=== PATIENT | male | born 1950 | race Caucasian/White ===

== ENCOUNTER 2016-05-20 20:30 | Inpatient (IN) | payer MEDICARE, OTHER ==
[~2016-05-20] VITALS: Ht 170.2 cm; Wt 74.6 kg
[~2016-05-20 20:30] MED LIST: AMIO200T2 PO; APIX5TAB PO; ASPI81TA3 PO; ATOR80TA75 PO; CARV12.579 PO; CEPH500C PO; CLOP75TA28 PO; DOCU-144 PO; EZET10TA3 PO; FAMO-95 PO; FURO40TA4 PO; HYDR-3498 PO; LISI10TA2 PO; MEX150 PO; NIT4 SL; ZOLP10TA5 PO
[2016-05-20] MEDS ORDERED: ASPIRIN 300 MG SUPP PR STA (20:32)
[2016-05-20] MEDS ORDERED: NITROGLYCERIN 50 MG/D5W (PMX) 250 ML IV STA (20:32)
[2016-05-20] MEDS ORDERED: FUROSEMIDE 40 MG INJ IV STA (20:32)
[2016-05-20] MEDS: NITROGLYCERIN 2% 1 GM OINT PKT TD STA ×2 (20:32→20:43)
[2016-05-20 21:00] LABS: INR 1.02; PARTIAL THROMBOPLASTIN TIME 33.9 Sec (25.0-35.0); PROTIME 13.4 Sec (12.2-14.2)
[2016-05-20 21:04] LABS: HEMATOCRIT 49.8 % (42.0-52.0); HEMOGLOBIN 16.4 g/dl (14.0-18.0); MEAN CORPUSCULAR HEMOGLOBIN 28.5 pg (29.0-33.0); MEAN CORPUSCULAR HGB CONC 32.9 g/dl (32.0-37.0); MEAN CORPUSCULAR VOLUME 86.6 fl (82.0-101.0); MEAN PLATELET VOLUME 12.1 fl (7.4-10.4); PLATELET COUNT 296 10^3/UL (140-440); RED BLOOD COUNT 5.75 10^6/ul (4.70-6.10); RED CELL DISTRIBUTION WIDTH 15.3 % (11.5-14.5); UNCORRECTED WBC 27.9 10^3/ul (4.8-10.8)
--- NOTE | 2016-05-20 21:07 | RADRPT ---
PROCEDURE: XR Chest. CLINICAL INDICATION: Chest pain. TECHNIQUE: Single frontal view. COMPARISON: 03/15/2016. FINDINGS: There is bilateral interstitial disease consistent with pulmonary edema. There is air space disease in the right upper lobe consistent with pneumonia. There is bibasilar atelectasis or pneumonia. The heart is enlarged and there is calcification in the aorta consistent with atherosclerosis. Ther e is a left-sided dual lead permanent pacemaker. There are sternal wires. There are small bilateral pleural effusions. There is no pneumothorax. IMPRESSION: 1. Pulmonary edema, worse than seen previously. 2. Right upper lobe pneumonia. 3. Bibasilar atelectasis or pneumonia. 4. Cardiomegaly. Atherosclerosis. 5. Dual lead permanent pacemaker. 6. Previous median sternotomy. 7. Small bilateral pleural effusions. RPTAT: QQ .Perry Saldivar MD, MD Date Time Electronically viewed and signed by .Perry Saldivar MD, MD on 05/20/2016 21:07 .R/
[2016-05-20 21:10] LABS: CONDITION 1; LH ANALYZER COMMENTS 1; SUSPECT 1
[2016-05-20 21:17] LABS: POTASSIUM 5.2 mmol/L (3.5-5.1)
[2016-05-20 21:19] LABS: CREATININE 2.23 mg/dl (0.61-1.24)
[2016-05-20 21:20] LABS: CALCIUM 10.4 mg/dl (8.4-10.2)
[2016-05-20 21:29] LABS: AADO2 Arterial 458.8 mmHg (7.0-24.0); Arterial Base Excess -5.8 mmol/L (-3.0-3); Arterial COHb 0.1 % (0.0-3.0); Arterial Fraction of Oxyhgb 98.8 % (93.0-99.0); Arterial HCO3 19.5 mmol/L (22.0-26.0); Arterial MetHb 0.3 % (0.0-1.5); Arterial Total Hemglobin 15.6 g/dl (12.0-18.0); Blood Gas IEPAP 22 /8; Blood Gas PS 14; MODE MASK - BIPAP
[2016-05-20] MEDS ORDERED: VANCOMYCIN 1 GM (PMX) 250 ML IVPB STA (21:29)
[2016-05-20] MEDS ORDERED: CEFEPIME 1GM/50 ML (PMX) 50 ML IVPB STA (21:29)
[2016-05-20 21:35] LABS: TROPONIN-I 0.141 ng/ml (0.00-0.12)
[2016-05-20] MEDS ORDERED: APIX2.5T PO (21:58)
[2016-05-20] MEDS ORDERED: ONDANSETRON 4 MG INJ IV PRN (22:00)
[2016-05-20] MEDS ORDERED: ACETAMINOPHEN 325 MG TAB PO PRN (22:00)
[2016-05-20] MEDS ORDERED: LISI-313 PO (22:15)
[2016-05-20] MEDS ORDERED: FURO20TA3 PO (22:15)
[2016-05-20] MEDS ORDERED: CARV6.2579 PO (22:18)
--- NOTE | 2016-05-20 22:26 | ERA ---
ER Documentation Chief Complaint Date/Time DATE: 05/20/16 TIME: 22:23 Chief Complaint CP/ sob, severe distress, demand pacing, diaphoretic, cpap per EMS HPI Patient is a 65-year-old male with significant cardiac disease, previous CABG, and renal failure who presents with shortness of breath and chest pain. Please note the history and physical exam is limited secondary to the patient's shortness of breath at this time. The patient was brought in by ambulance and needed CPAP therapy in route. He is diaphoretic and sweating. His oxygen saturation was 83% at home per paramedics. It is difficult to obtain history otherwise. ROS All systems reviewed and are negative except as per history of present illness. Medications Home Meds Active Scripts Mexiletine Hcl* (Mexiletine Hcl*) 150 Mg Capsule, 150 MG PO BID, #60 CAP Prov:GIA WILDER MD 03/07/16 Carvedilol* (Carvedilol*) 12.5 Mg Tablet, 12.5 MG PO BID, #60 TAB Prov:GIA WILDER MD 03/07/16 Aspirin* (Aspirin* Chew) 81 Mg Tab.chew, 81 MG PO DAILY, #30 TAB.CHEW Prov:GIA WILDER MD 03/07/16 Atorvastatin* (Atorvastatin*) 80 Mg Tablet, 80 MG PO QHS, #30 TAB Prov:GIA WILDER MD 03/07/16 Reported Medications Carvedilol* (Carvedilol*) 6.25 Mg Tablet, 6.25 MG PO QAM, #60 TAB 05/20/16 Furosemide* (Furosemide*) 20 Mg Tablet, 20 MG PO BID, #30 TAB 05/20/16 Lisinopril* (Lisinopril*) 5 Mg Tablet, 5 MG PO DAILY, #30 TAB 05/20/16 Apixaban* (Eliquis*) 2.5 Mg Tablet, 2.5 MG PO BID, TAB 05/20/16 Zolpidem Tartrate* (Zolpidem Tartrate*) 10 Mg Tablet, 10 MG PO QHS Y for INSOMNIA, #30 TAB 01/25/16 Discontinued Scripts Cephalexin* (Cephalexin*) 500 Mg Capsule, 500 MG PO Q8, #15 CAP Prov:GIA WILDER MD 03/16/16 Furosemide (Lasix) 40 Mg Tab, 40 MG PO BID for 30 Days, #60 TAB Prov:GIA WILDER MD 03/16/16 Famotidine* (Pepcid* AC) 20 Mg Tablet, 20 MG PO DAILY, #30 TAB Prov:GIA WILDER MD 03/07/16 Nitroglycerin* (Nitrostat*) 0.4 Mg Tab.subl, 1 TAB SL Q5M Y for CHEST PAIN, #30 Prov:GIA WILDER MD 03/07/16 Hydrocodone Bit-Acetaminophen (Hydrocodone Bit-APAP) 5-325MG Tablet, 1 TAB PO Q6H Y for MODERATE PAIN LEVEL 4-6, #1 TAB Prov:GIA WILDER MD 03/07/16 Docusate Sodium* (Colace*) 100 Mg Capsule, 100 MG PO Q12H Y for CONSTIPATION, # 30 CAP Prov:GIA WILDER MD 03/07/16 Amiodarone Hcl* (Amiodarone Hcl*) 200 Mg Tablet, 200 MG PO BID, #60 TAB 2 Refills Prov:GIA WILDER MD 03/07/16 Clopidogrel Bisulfate (Clopidogrel) 75 Mg Tablet, 75 MG PO DAILY, #30 TAB 2 Refills Prov:GIA WILDER MD 03/07/16 Lisinopril* (Lisinopril*) 10 Mg Tablet, 10 MG PO DAILY, #30 TAB Prov:GIA WILDER MD 03/07/16 Apixaban* (Eliquis*) 5 Mg Tablet, 2.5 MG PO BID, #60 TAB Prov:GIA WILDER MD 03/07/16 Ezetimibe* (Zetia*) 10 Mg Tablet, 10 MG PO DAILY, #30 TAB Prov:IGA WILDER MD 03/07/16 Allergies Allergies: Coded Allergies: No Known Allergy (Unverified , 05/20/16) PMhx/Soc History of Surgery: Yes (CABG (10/2015), heart stent x 1(2016) PPM & defibrillator (03/2016)) Anesthesia Reaction: No Hx Neurological Disorder: No Hx Respiratory Disorders: Yes (resp failure) Hx Cardiac Disorders: Yes (cad, cardiomyopathy, HTN, MD) Hx Psychiatric Problems: No Hx Miscellaneous Medical Probl: Yes (high cholesterol) Hx Alcohol Use: Yes Hx Substance Use: No Hx Tobacco Use: Yes Smoking Status: Former smoker FmHx Unable to obtain Physical Exam Vitals Vital Signs Date Time Temp Pulse Resp B/P Pulse Ox O2 Delivery O2 Flow Rate FiO2 05/20/16 21:50 114 24 145/91 98 BIPAP 05/20/16 21:35 109 21 147/90 100 BIPAP 05/20/16 21:35 111 100 50 05/20/16 21:23 115 28 159/104 100 BIPAP 05/20/16 21:15 120 28 193/130 100 BIPAP 05/20/16 21:05 127 31 203/151 100 BIPAP 05/20/16 20:55 133 31 207/141 100 BIPAP 05/20/16 20:50 135 29 213/148 98 BIPAP 05/20/16 20:37 139 37 191/136 87 CPAP 05/20/16 20:35 134 99 100 05/20/16 20:34 97.7 137 40 191/136 99 Physical Exam Const: Severe distress with diaphoresis and cyanosis Head: Atraumatic Eyes: Normal Conjunctiva ENT: Normal External Ears, Nose and Mouth. Neck: Full range of motion..~ No meningismus. Resp: Decreased breath sounds bilaterally with tachypnea and accessory muscle use Cardio: Tachycardic rate Abd: Soft, non tender, non distended. Normal bowel sounds Skin: Pale and diaphoretic Back: No midline or flank tenderness Ext: 1+ edema bilaterally Neur: Awake and anxious Result Diagram: 05/20/16202905/20/162029 Results 24 hrs Laboratory Tests Test 05/20/16 20:30 05/20/16 20:32 Activated Partial Thromboplast Time 33.9Sec Anion Gap 27 Blood Morphology Comment Blood Urea Nitrogen 28mg/dl Calcium Level 10.4mg/dl Carbon Dioxide Level 23mmol/L Chloride Level 105mmol/L Creatinine 2.23mg/dl Glucose Level 174mg/dl Hematocrit 49.8% Hemoglobin 16.4g/dl INR International Normalized Ratio 1.02 Mean Corpuscular Hemoglobin 28.5pg Mean Corpuscular Hemoglobin Concent 32.9g/dl Mean Corpuscular Volume 86.6fl Mean Platelet Volume 12.1fl Platelet Count 18642^3/UL Potassium Level 5.2mmol/L Prothrombin Time 13.4Sec Prothrombin Time Ratio 1.0 Red Blood Count 5.7510^6/ul Red Cell Distribution Width 15.3% Sodium Level 150mmol/L Troponin I 0.141ng/ml White Blood Count 27.910^3/ul Arterial Blood HCO3 19.5mmol/L Arterial Blood Base Excess -5.8mmol/L Arterial Blood Oxygen Saturation 99.2mmHG Aaron Test N/A Arterial Blood Gas Puncture Site Right Brachial Arterial Blood Carboxyhemoglobin 0.1% Arterial Blood Date Drawn 05/20/2016 9:20:50 PM Arterial Blood Methemoglobin 0.3% Arterial Blood pCO2 (Temp correct) 38.0mmhg Arterial Blood pH (Temp corrected) 7.329 Arterial Blood pO2 (Temp corrected) 216.2mmHG Blood Gas A-a O2 Differential 458.8mmHg Blood Gas Actual Respiration Rate 25 Blood Gas Critical Value Read Back DR. VENTURA, B Blood Gas IPAP/EPAP Ratio 22 /8 Blood Gas Modality MASK - BIPAP Blood Gas Notified Time 05/20/2016 9:29:12 PM Blood Gas Notified Whom BL Blood Gas Pressure Support 14 Blood Gas Respiration Rate 20.0 Blood Gas Specimen Source Blood arterial Blood Gas Temperature 37.0C FiO2 100.0% Oxyhemoglobin Percent 98.8% Total Hemoglobin 15.6g/dl Current Medications Medications (Trade) Dose Ordered Sig/Deanna Route PRN Reason Start Time Stop Time Status Last Admin Dose Admin Aspirin (Aspirin) 300 mg ONCE STAT [place] 05/20/16 20:32 05/20/16 20:34 DC 05/20/16 20:42 Nitroglycerin 1 inch 1 inch ONCE STAT TD 05/20/16 20:32 05/20/16 20:34 DC 05/20/16 20:43 Nitroglycerin/ Dextrose (Nitroglycerin 50 Mg/D5W (Pmx)) 250 ml @ 6 mls/hr ONCE STAT IV 05/20/16 20:32 05/22/16 14:11 05/20/16 20:44 Furosemide 40 mg 40 mg ONCE STAT IV 05/20/16 20:32 05/20/16 20:34 DC 05/20/16 20:43 Cefepime HCl 50 ml @ 100 mls/hr ONCE STAT IVPB 05/20/16 21:29 05/20/16 21:58 DC 05/20/16 21:40 Vancomycin HCl (Vancocin) 250 ml @ 125 mls/hr ONCE STAT IVPB 05/20/16 21:29 05/20/16 23:28 Ondansetron HCl (Zofran Inj) 4 mg ER BRIDGE PRN IV NAUSEA AND/OR VOMITING 05/20/16 22:00 05/21/16 21:59 Acetaminophen (Tylenol Tab) 650 mg ER BRIDGE PRN PO MILD PAIN/FEVER 05/20/16 22:00 05/21/16 21:59 Procedures/MDM EKG read by me: Rate/Rhythm: Left bundle branch block with tachycardia at a rate of 137 Intervals: Wide QRS with prolonged QTC of 573 Impression: Left bundle branch block with tachycardia and PVCs Chest x-ray shows pulmonary edema and pneumonia per radiology. Patient is a 65-year-old male presents with what appears to be acute CHF exacerbation with respiratory failure. He needed nitroglycerin drip. He was given rectal aspirin. He was placed on BiPAP therapy in the emergency department. His white count was found to be 27.9 and he does have a pneumonia as well although I do not think this is his primary process. The patient will be covered with vancomycin and cefepime empirically after blood cultures are drawn. Lactic acid is pending. At this point I doubt sepsis however. I do not think the patient requires IV fluids and I think these would be harmful given his pulmonary edema. The patient did improve with nitroglycerin drip and BiPAP therapy but he was close to being intubated. He does have serious comorbidities and his prognosis is unfortunately poor. The patient will be admitted to a telemetry bed under the care of Dr. Colindres. His primary doctor does not admit here and the patient has been admitted to the panel team recently. The patient does have a positive troponin which he has had elevated in the past. I believe he has an NSTEMI and telemetry admission will be important. Critical Care: Time: 40 minutes excluding all billable procedures. Treatments/Evaluations: Close monitoring and treatment of unstable vital signs, cardiorespiratory, and neurologic status, while maintaining tight balance of fluid, respiratory, and cardiac interventions. Departure Diagnosis: Primary Impression: NSTEMI (non-ST elevated myocardial infarction) Additional Impressions: Shortness of breath Respiratory failure Qualified Code: J96.00 - Acute respiratory failure, unspecified whether with hypoxia or hypercapnia Pneumonia Qualified Code: J18.9 - Pneumonia due to infectious organism, unspecified laterality, unspecified part of lung Condition: Serious BISHOP VENTURA MD May 20, 2016 22:26
[2016-05-20 23:06] LABS: AADO2 Arterial 161.8 mmHg (7.0-24.0); Arterial Base Excess -2.8 mmol/L (-3.0-3); Arterial COHb 0.1 % (0.0-3.0); Arterial Fraction of Oxyhgb 95.3 % (93.0-99.0); Arterial HCO3 21.5 mmol/L (22.0-26.0); Arterial MetHb 0.3 % (0.0-1.5); Arterial Total Hemglobin 14.9 g/dl (12.0-18.0); Blood Gas IEPAP 22 /8; Blood Gas PS 14; MODE MASK - BIPAP
[2016-05-21 03:24] LABS: EOSINOPHILS # 0.6 10^3/ul (0.0-0.5); LYMPHOCYTES # 5.6 10^3/ul (0.8-2.9); NEUTROPHIL # 19.5 10^3/ul (1.6-7.5)
[2016-05-21] MEDS ORDERED: ZOLPIDEM 5 MG TAB PO ONE (04:00)
[2016-05-21 04:32] LABS: CK-MB 3.73 ng/ml (0.0-2.4)
[2016-05-21 04:44] LABS: TROPONIN-I 0.241 ng/ml (0.00-0.12)
[2016-05-21] MEDS ORDERED: ACETAMINOPHEN 325 MG TAB PO PRN (05:00)
[2016-05-21] MEDS ORDERED: ALBUTEROL/IPRATROPIUM (NEB) 3 ML AMP HHN PRN (05:00)
[2016-05-21] MEDS ORDERED: NITROGLYCERIN (SL) 0.4 MG TAB SL PRN (05:00)
[2016-05-21] MEDS ORDERED: VANCOMYCIN IV PER PHARMACY XX SCH (05:00)
[2016-05-21] MEDS ORDERED: morphine 2 MG INJ IV PRN (05:00)
[2016-05-21] MEDS ORDERED: ONDANSETRON 4 MG INJ IV PRN (05:00)
[2016-05-21] MEDS ORDERED: NACL 0.9% 3 ML SYG IV SCH (05:00)
[2016-05-21] MEDS: FUROSEMIDE 20 MG TAB PO SCH ×2 (05:50→17:56)
[2016-05-21 07:09] LABS: BASOPHILS % 0.3 % (0.0-2.0); EOSINOPHILS # 0.1 10^3/ul (0.0-0.5); EOSINOPHILS % 0.7 % (0.0-7.0); HEMATOCRIT 37.4 % (42.0-52.0); HEMOGLOBIN 12.8 g/dl (14.0-18.0); LYMPHOCYTES # 1.9 10^3/ul (0.8-2.9); LYMPHOCYTES % 11.8 % (15.0-51.0); MEAN CORPUSCULAR HEMOGLOBIN 29.5 pg (29.0-33.0); MEAN CORPUSCULAR HGB CONC 34.2 g/dl (32.0-37.0); MEAN CORPUSCULAR VOLUME 86.3 fl (82.0-101.0); MEAN PLATELET VOLUME 10.9 fl (7.4-10.4); MONOCYTE # 1.2 10^3/ul (0.3-0.9); MONOCYTES % 7.3 % (0.0-11.0); NEUTROPHILS % 79.9 % (39.0-77.0); PLATELET COUNT 201 10^3/UL (140-440); RED BLOOD COUNT 4.33 10^6/ul (4.70-6.10); RED CELL DISTRIBUTION WIDTH 15.5 % (11.5-14.5); UNCORRECTED WBC 16.2 10^3/ul (4.8-10.8); WHITE BLOOD COUNT 16.2 10^3/ul (4.8-10.8)
[2016-05-21 07:14] LABS: ALBUMIN 3.8 g/dl (3.3-4.9)
[2016-05-21 07:15] LABS: POTASSIUM 4.4 mmol/L (3.5-5.1)
[2016-05-21 07:17] LABS: ALBUMIN/GLOBULIN RATIO 1.35; BILIRUBIN,INDIRECT 1.2 mg/dl (0-1.1); BILIRUBIN,TOTAL 1.2 mg/dl (0.2-1.3); CREATININE 2.08 mg/dl (0.61-1.24); TOTAL PROTEIN 6.6 g/dl (6.1-8.1)
[2016-05-21 07:18] LABS: CALCIUM 9.3 mg/dl (8.4-10.2)
--- NOTE | 2016-05-21 07:28 | HP ---
DATE OF ADMISSION: 05/20/2016 CHIEF COMPLAINT: Chest pain and shortness of breath. 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 He also reports palpitation as well a s diaphoresis. When EMS picked him up, reportedly his oxygen saturation was 83% and the patient had significant shortness of breath as well as diaphoresis. When he arrived to the ER, he was feeling diaphoretic. En route to the ER, the patient was on CPAP and when he arrived to the ER, he was tachycardic with a heart rate of 137 and tachypneic with a res piratory rate of 40, blood pressure was 191/136, his oxygen saturation was 99% on 100% FIO2. The raymond barnes is currently on BiPAP and still having some respiratory distress and as such not able to gathe r additional information. As far as his laboratory values are concerned, he presented with a WBC of 28,000, sodium 150, potassium 5.2, BUN 28, creatinine 2.23, anion gap of 27. His initial troponin was 0.41. He was given aspirin, nitroglycerin, Lasix and was started on vancomycin and cefepime. H is chest x-ray shows pulmonary edema, worse compared to the chest x-ray from 2 months ago. Also not ed was right upper lobe pneumonia, bibasilar atelectasis, cardiomegaly and dual lead permanent pacem leyda and small bilateral pleural effusion. Also important to mention is when he arrived to the ER, he was actually in V-tach. Initial EKG shows tachycardia with a left bundle branch block, a rate of 137 as well as PVCs. But because of continued shortness of breath, the patient was also placed on a nitro drip and continued on BiPAP and his respiratory symptoms have improved even though reportedl y he was very close to being intubated. REVIEW OF SYSTEMS: Unable to fully assess given the patient is on BiPAP but is negative except as m entioned in HPI. PAST MEDICAL HISTORY: As per HPI. PAST SURGICAL HISTORY: Pacemaker placement and coronary artery bypass graft . SOCIAL HISTORY: He is an ex-smoker. No alcohol or illicit drug use. ALLERGIES: NO KNOWN DRUG ALLERGIES. HOME MEDICATIONS: 1. Eliquis. 2. Lipitor. 3. Coreg. 4. Lisinopril. 5. Aspirin. 6. Ambien. 7. Lasix. 8. Mexiletine. PHYSICAL EXAMINATION: VITAL SIGNS: Blood pressure 120/86, heart rate 99, respiratory rate 16, temperature 97.7, oxygen sa turation 99% on 40% FIO2 on BiPAP. GENERAL: The patient is some respiratory distress is on BiPAP. HEENT: No obvious head deformity. Pupils are reactive to light. CARDIOVASCULAR: Tachycardic, regular rhythm. LUNGS: Unable to clearly hear because of the BiPAP, but he has diminished breath sounds. ABDOMEN: Soft. No grimaces noted on palpation. Positive bowel sounds. EXTREMITIES: He has pitting edema in bilateral lower extremities. LABORATORY: Pertinent positives results as mentioned in the HPI. Chest x-ray result as mentioned i n the HPI. IMPRESSION: 1. Congestive heart failure exacerbation. 2. History of ischemic cardiomyopathy with ejection fraction of 20%. 3. History of coronary artery disease with coronary artery bypass graft. 3. Pulmonary edema. 4. Hypertension. 5. Sepsis secondary to pneumonia. 6. History of dyslipidemia. 7. Chronic kidney disease. 8. Positive troponin, this is chronic likely from continued ischemia. 9. Hypernatremia. 10. Mild hyperkalemia. 11. Pneumonia. PLAN: We will admit to telemetry unit. Will continue positive pressure ventilation. We will marisol nue oxygen. He will be treated with bronchodilators. His shortness of breath has a multiple etiolo gy including CHF exacerbation given his extensive cardiac history and also sepsis secondary to his p neumonia. He will be placed on broad spectrum antibiotic. We will follow up on the culture results . He will be diuresed with IV Lasix. Strict in's and out's and will monitor his urine output. Corky l correct electrolytes as needed. As much as possible avoid nephrotoxins and renally dose all medic ations. We will place a cardiology consult as well as nephrology consult, Further workup and management per clinical course. Dictated By: SHRADDHA ENCARNACION/LUIS Conf#: [id number] DID#: [id number] CC: SHAHEED HAM MD;*End*
[2016-05-21 07:31] LABS: CK-MB 4.02 ng/ml (0.0-2.4); TROPONIN-I 0.212 ng/ml (0.00-0.12)
[2016-05-21 07:33] LABS: CONDITION 1; LH ANALYZER COMMENTS 1
[2016-05-21] MEDS: CEFEPIME 1GM/50 ML (PMX) 50 ML IVPB SCH (08:32)
[2016-05-21] MEDS: MEXILETINE 150 MG CAP PO SCH ×2 (08:33→22:02)
[2016-05-21] MEDS: APIXABAN 5 MG TABLET PO SCH ×2 (08:33→20:30)
[2016-05-21] MEDS: ASPIRIN 81 MG TAB PO SCH (08:34)
[2016-05-21] MEDS: FAMOTIDINE 20 MG INJ IV SCH (08:34)
[2016-05-21] MEDS: LISINOPRIL 5 MG TAB PO SCH (08:34)
[2016-05-21] MEDS ORDERED: FAMOTIDINE 20 MG INJ IV SCH (09:00)
[2016-05-21] MEDS ORDERED: CEFEPIME 1GM/50 ML (PMX) 50 ML IVPB SCH (09:00)
[2016-05-21 09:07] LABS: CK-MB 4.18 ng/ml (0.0-2.4)
[2016-05-21 09:12] LABS: TROPONIN-I 0.203 ng/ml (0.00-0.12)
[2016-05-21] MEDS: VANCOMYCIN 1 GM in NS 250 ML IVPB SCH (10:47)
[2016-05-21 11:35] LABS: CK-MB 4.08 ng/ml (0.0-2.4); TROPONIN-I 0.212 ng/ml (0.00-0.12)
[2016-05-21 11:45] VITALS: TEMP 98.1
--- NOTE | 2016-05-21 15:36 | PN ---
Date/Time of Note Date/Time of Note DATE: 05/21/16 TIME: 15:28 Assessment/Plan VTE Prophylaxis VTE Prophylaxis Intervention: other Lines/Catheters IV [facility]ter [facility]from [facility]): Saline Lock Assessment/Plan Chief Complaint/Hosp Course 1. Acute Resp Distress 2/2 Congestive heart failure exacerbation and/or PNA -Cards consult -cont Abx and Lasix, of note Lasix was held several days 2/2 worsening renal function 2. History of ischemic cardiomyopathy with ejection fraction of 20% -Cards consult 3. History of coronary artery disease with coronary artery bypass graft -cont Rx 4. Sepsis secondary to pneumonia -cont Abx with Vanco and Cefepime 5. HTN-stable -cont Rx 6. Trop elevation-chronic -Cards consult 7. Acute on Chronic kidney disease -Renal consult with Dr Jones 8. Hypernatremia-resolved 9. Mild hyperkalemia-resolved PPx- on Eliquis Problems: Subjective 24 Hr Interval Summary Respiratory: shortness of breath Exam/Review of Systems Vital Signs Vitals Vital Signs Date Time Temp Pulse Resp B/P Pulse Ox O2 Delivery O2 Flow Rate FiO2 05/21/16 14:06 93 18 108/67 98 Nasal Cannula 2.0 05/21/16 11:45 98.1 05/20/16 23:50 40 Intake and Output 05/20/16 05/20/16 05/21/16 15:00 23:00 07:00 Intake Total 50 ml 250 ml Output Total 850 ml Balance 50 ml -600 ml Exam Constitutional: alert, oriented Respiratory: clear to auscultation Cardiovascular: regular rate and rhythm Gastrointestinal: soft, No distended Musculoskeletal: nl extremities to inspection Results Result Diagram: 05/21/16 0610 05/21/16 0610 Results 24 hrs Laboratory Tests Test 05/20/16 19:33 05/20/16 20:30 05/20/16 20:32 05/20/16 22:19 Lactic Acid Level 1.7 1.2 Activated Partial Thromboplast Time 33.9 Anion Gap 27 H Blood Morphology Comment Blood Urea Nitrogen 28 H Calcium Level 10.4 H Carbon Dioxide Level 23 Chloride Level 105 Creatinine 2.23 H Eosinophils # 0.6 H Eosinophils % 2.0 Glucose Level 174 Hematocrit 49.8 # Hemoglobin 16.4 # INR International Normalized Ratio 1.02 Lymphocytes # 5.6 H Lymphocytes % 20.0 Mean Corpuscular Hemoglobin 28.5 L Mean Corpuscular Hemoglobin Concent 32.9 Mean Corpuscular Volume 86.6 Mean Platelet Volume 12.1 H Metamyelocytes # 0.3 Metamyelocytes % 1.0 H Monocytes # 2.0 H Monocytes % 7.0 Neutrophils # 19.5 H Neutrophils % 70.0 Platelet Count 296 # Potassium Level 5.2 H Prothrombin Time 13.4 # Prothrombin Time Ratio 1.0 Red Blood Count 5.75 # Red Cell Distribution Width 15.3 H Sodium Level 150 H Troponin I 0.141 *H White Blood Count 27.9 #H Arterial Blood HCO3 19.5 L Arterial Blood Base Excess -5.8 L Arterial Blood Oxygen Saturation 99.2 H Aaron Test N/A Arterial Blood Gas Puncture Site Right Brachial Arterial Blood Carboxyhemoglobin 0.1 Arterial Blood Date Drawn 05/20/2016 9:20:50 PM Arterial Blood Methemoglobin 0.3 Arterial Blood pCO2 (Temp correct) 38.0 Arterial Blood pH (Temp corrected) 7.329 L Arterial Blood pO2 (Temp corrected) 216.2 H Blood Gas A-a O2 Differential 458.8 H Blood Gas Actual Respiration Rate 25 Blood Gas Critical Value Read Back Sushant MURPHY Blood Gas IPAP/EPAP Ratio 22 / Blood Gas Modality MASK - BIPAP Blood Gas Notified Time 05/20/2016 9:29:12 PM Blood Gas Notified Whom BL Blood Gas Pressure Support 14 Blood Gas Respiration Rate 20.0 Blood Gas Specimen Source Blood arterial Blood Gas Temperature 37.0 FiO2 100.0 Oxyhemoglobin Percent 98.8 Total Hemoglobin 15.6 Test 05/20/16 22:49 05/21/16 03:55 05/21/16 06:10 05/21/16 08:33 Arterial Blood HCO3 21.5 L Arterial Blood Base Excess -2.8 Arterial Blood Oxygen Saturation 95.7 Aaron Test N/A Arterial Blood Gas Puncture Site Right Brachial Arterial Blood Carboxyhemoglobin 0.1 Arterial Blood Date Drawn 05/20/2016 10:57:58 PM Arterial Blood Methemoglobin 0.3 Arterial Blood pCO2 (Temp correct) 36.1 Arterial Blood pH (Temp corrected) 7.393 Arterial Blood pO2 (Temp corrected) 81.9 Blood Gas A-a O2 Differential 161.8 H Blood Gas Actual Respiration Rate 22 Blood Gas Critical Value Read Back Leroy HULL Blood Gas IPAP/EPAP Ratio 22 /8 Blood Gas Modality MASK - BIPAP Blood Gas Notified Time 05/20/2016 11:06:11 PM Blood Gas Notified Whom BL Blood Gas Pressure Support 14 Blood Gas Respiration Rate 20.0 Blood Gas Specimen Source Blood arterial Blood Gas Temperature 37.0 FiO2 40.0 Oxyhemoglobin Percent 95.3 Total Hemoglobin 14.9 Creatine Kinase 43 44 42 Creatine Kinase Index 8.7 9.1 10.0 Creatinine Kinase MB (Mass) 3.73 H 4.02 H 4.18 H Lactic Acid Level 1.1 Troponin I 0.241 *H 0.212 *H 0.203 *H Alanine Aminotransferase (ALT/SGPT) 24 Albumin 3.8 Albumin/Globulin Ratio 1.35 Alkaline Phosphatase 79 Anion Gap 15 # Aspartate Amino Transf (AST/SGOT) 23 Basophils # 0.0 Basophils % 0.3 Blood Morphology Comment Blood Urea Nitrogen 30 H Calcium Level 9.3 Carbon Dioxide Level 23 Chloride Level 107 Creatinine 2.08 H Direct Bilirubin 0.00 Eosinophils # 0.1 Eosinophils % 0.7 Globulin 2.80 Glucose Level 124 # Hematocrit 37.4 #L Hemoglobin 12.8 #L Indirect Bilirubin 1.2 H Lymphocytes # 1.9 Lymphocytes % 11.8 L Mean Corpuscular Hemoglobin 29.5 Mean Corpuscular Hemoglobin Concent 34.2 Mean Corpuscular Volume 86.3 Mean Platelet Volume 10.9 H Monocytes # 1.2 H Monocytes % 7.3 Neutrophils # 13.0 H Neutrophils % 79.9 H Nucleated Red Blood Cells # 0.0 Nucleated Red Blood Cells % 0.0 Platelet Count 201 # Potassium Level 4.4 Red Blood Count 4.33 #L Red Cell Distribution Width 15.5 H Sodium Level 141 Total Bilirubin 1.2 Total Protein 6.6 White Blood Count 16.2 #H Test 05/21/16 10:45 Creatine Kinase 41 Creatine Kinase Index 10.0 Creatinine Kinase MB (Mass) 4.08 H Troponin I 0.212 *H Medications Medications Current Medications Ondansetron HCl (Zofran Inj) 4 mg Q6H PRN IV NAUSEA AND/OR VOMITING; Start at 05:00 Nitroglycerin (Nitroglycerin (Sl Tab) 0.4 Mg) 1 tab Q5M PRN SL CHEST PAIN; Start 05/21/16 at 05:00 Acetaminophen (Tylenol Tab) 650 mg Q6H PRN PO PAIN LEVEL 1-3 OR FEVER; Start at 05:00 Morphine Sulfate (morphine) 2 mg Q4H PRN IV PAIN LEVEL 7-10; Start 05/21/16 at 05:00 Apixaban (Eliquis) 2.5 mg BID PO Last administered on 05/21/16 08:33; Admin Dose 2.5 MG; Start 05/21/16 at 09:00 Aspirin (Aspirin) 81 mg DAILY PO Last administered on 05/21/16 08:34; Admin Dose 81 MG; Start 05/21/16 at 09:00 Atorvastatin Calcium (Lipitor) 80 mg QHS PO ; Start 05/21/16 at 21:00 Carvedilol (Coreg) 12.5 mg BID PO Last administered on 05/21/16 08:33; Admin Dose 12.5 MG; Start 05/21/16 at 09:00 Furosemide (Lasix) 20 mg BID@06,18 PO Last administered on 05/21/16 05:50; Admin Dose 20 MG; Start 05/21/16 at 06:00 Lisinopril (Zestril) 5 mg DAILY PO Last administered on 05/21/16 08:34; Admin Dose 5 MG; Start 05/21/16 at 09:00 Mexiletine HCl (Mexitil) 150 mg BID PO Last administered on 05/21/16 08:33; Admin Dose 150 MG; Start 05/21/16 at 09:00 Zolpidem Tartrate (Ambien) 10 mg QHS PRN PO INSOMNIA; Start 05/21/16 at 05:00 Famotidine 20 mg 20 mg DAILY IV Last administered on 05/21/16 08:34; Admin Dose 20 MG; Start 05/21/16 at 09:00 Vancomycin HCl 250 ml @ 125 mls/hr Q24H IVPB Last administered on 05/21/16 10 :47; Admin Dose 125 MLS/HR; Start 05/21/16 at 11:00 Cefepime HCl (Maxipime 1gm/50 ml (Pmx)) 50 ml @ 100 mls/hr Q24H IVPB Last administered on 05/21/16 08:32; Admin Dose 100 MLS/HR; Start 05/21/16 at 09:00 GLENN OWENS 19, 2017 15:36
[2016-05-21] MEDS ORDERED: AMIO100T4 PO (16:23)
[2016-05-21] MEDS ORDERED: EZET10TA3 PO (16:23)
[2016-05-21 16:28] VITALS: BP 156/73; PULSE 79; RESP 20
[2016-05-21 16:34] VITALS: Ht 170.2 cm; Wt 74.6 kg
[2016-05-21 19:58] VITALS: BP 127/70; RESP 19
[2016-05-21 20:27] VITALS: PULSE 81
[2016-05-21] MEDS: ATORVASTATIN 80 MG TAB PO SCH (20:29)
[2016-05-21] MEDS: ZOLPIDEM 5 MG TAB PO PRN (22:02)
[2016-05-22] VITALS (13 sets, daily range): BP systolic 117–139; BP diastolic 63–76; PULSE 68–85; RESP 17–19
[2016-05-22] MEDS: FUROSEMIDE 20 MG TAB PO SCH ×2 (06:31→17:26)
[2016-05-22 06:50] LABS: CREATININE 2.09 mg/dl (0.61-1.24)
[2016-05-22 06:51] LABS: MAGNESIUM 1.8 mg/dl (1.7-2.5); PHOSPHORUS 3.3 mg/dl (2.5-4.9)
[2016-05-22 06:52] LABS: BASOPHILS % 0.4 % (0.0-2.0); EOSINOPHILS # 0.4 10^3/ul (0.0-0.5); EOSINOPHILS % 3.4 % (0.0-7.0); HEMATOCRIT 35.4 % (42.0-52.0); HEMOGLOBIN 12.2 g/dl (14.0-18.0); LYMPHOCYTES # 2.3 10^3/ul (0.8-2.9); LYMPHOCYTES % 21.9 % (15.0-51.0); MEAN CORPUSCULAR HEMOGLOBIN 29.6 pg (29.0-33.0); MEAN CORPUSCULAR HGB CONC 34.4 g/dl (32.0-37.0); MEAN PLATELET VOLUME 11.4 fl (7.4-10.4); MONOCYTE # 0.8 10^3/ul (0.3-0.9); NEUTROPHILS % 66.3 % (39.0-77.0); PLATELET COUNT 187 10^3/UL (140-440); RED BLOOD COUNT 4.12 10^6/ul (4.70-6.10); RED CELL DISTRIBUTION WIDTH 15.3 % (11.5-14.5); UNCORRECTED WBC 10.6 10^3/ul (4.8-10.8); WHITE BLOOD COUNT 10.6 10^3/ul (4.8-10.8)
[2016-05-22 06:56] LABS: CONDITION 1; LH ANALYZER COMMENTS 1
[2016-05-22] MEDS: CEFEPIME 1GM/50 ML (PMX) 50 ML IVPB SCH ×2 (09:00→11:23)
[2016-05-22] MEDS ORDERED: FUROSEMIDE 40 MG INJ IV SCH (09:00)
[2016-05-22] MEDS: APIXABAN 5 MG TABLET PO SCH ×2 (09:19→20:56)
[2016-05-22] MEDS: FAMOTIDINE 20 MG INJ IV SCH (09:19)
[2016-05-22] MEDS: MEXILETINE 150 MG CAP PO SCH ×2 (09:19→20:56)
[2016-05-22] MEDS: ASPIRIN 81 MG TAB PO SCH (09:19)
[2016-05-22] MEDS: LISINOPRIL 5 MG TAB PO SCH (09:19)
--- NOTE | 2016-05-22 09:37 | RADRPT ---
PROCEDURE: XR Chest. CLINICAL INDICATION: Congestive heart failure TECHNIQUE: Single frontal chest x-ray. COMPARISON: 05/20/2016 FINDINGS: There is a left-sided dual chamber cardiac pacer in place. Sternotomy wires are present. . There i s near-complete resolution of bilateral pulmonary edema and small pleural effusions since prior exam . There is a persistent rounded opacity in the right suprahilar region measuring 5.7 cm.. Borderli ne cardiomegaly with calcific atherosclerosis of the aorta is present.. The osseous structures are i ntact. IMPRESSION: Near complete resolution of bilateral pulmonary edema and small effusions. Persistent opacity in the right suprahilar region. Question focal consolidation versus mass. Recom mend follow-up. Cardiomegaly with left-sided cardiac pacer in place.. RPTAT: GG .Aamir Nunez MD, MD Date Time Electronically viewed and signed by .Aamir Nunez MD, MD on 05/22/2016 09:36 .L/
[2016-05-22] MEDS: VANCOMYCIN 1 GM in NS 250 ML IVPB SCH ×2 (11:00→11:23)
--- NOTE | 2016-05-22 12:19 | CONS ---
DATE OF ADMISSION: 05/20/2016 DATE OF CONSULTATION: 05/22/2016 TYPE OF CONSULTATION: Nephrology. REASON FOR CONSULTATION: Acute kidney injury. PHYSICIAN REQUESTING CONSULT: Dr. Fish. HISTORY OF PRESENT ILLNESS This is a 65-year-old male with a past medical history of hypertension, dyslipidemia, coronary artery disease, history of coronary artery bypass graft, history of ischemic cardiomyopathy with ejection fraction 20%, history of carotid endarterectomy, who presents to [facility] with worsening shortness of breath. The patient has had multiple admissions to [facility] over the last 3 months. Most notably, patient was admitted January where he had PCI to the LAD. During that hospitalization the patient developed several contrast-in duced nephropathy and clinically improved, with his renal function returning back to baseline creati nine of 1.4 mg/dL. Patient was subsequently readmitted with CHF exacerbation, episode of pulseless V-tach, and code blue. The patient clinically improved, had ICD placement. He was subsequently dis charged home. He has had previous a subsequent again for CHF exacerbation. The patient now present s to [facility] with shortness of breath and chest pain. The patient in the emergency room and was diagnos ed with non-STEMI, acute CHF exacerbation, and pneumonia. He was subsequently admitted to telemetry , was treated with IV antibiotics and IV diuretics, with clinical improvement. There have been no r eports of hemoptysis, hematemesis or hematochezia. In terms of the patient's renal history, as stated above, the patient has had episodes of contrast-i nduced nephropathy. His creatinine has previously stabilized at around 1.4 to 2 mg/dL. The patient at home is taking lisinopril, is on Lasix. The patient denies any recent episodes of rashes, any f rothy urine, any recent NSAID use. PAST MEDICAL HISTORY: As stated above, history of CKD, ischemic cardiomyopathy, hypertension, dysli pidemia, history of non-STEMI. PAST SURGICAL HISTORY: CABG, status post carotid endarterectomy, status post PCI of LAD, status pos t ICD placement. SOCIAL HISTORY: Positive for smoking in the past. FAMILY HISTORY: Noncontributory. ALLERGIES: NO KNOWN DRUG ALLERGIES. MEDICATIONS: Patient medications reviewed. REVIEW OF SYSTEMS: A 14-point review of systems was conducted. Pertinent positives in HPI, otherwi se negative. PHYSICAL EXAMINATION: VITAL SIGNS: Blood pressure is 144/82, respirations 14, pulse 98, temperature 98.6. HEENT: Head is normocephalic. Pupils are reactive to light. NECK: Supple. HEART: Regular rate. LUNGS: Show diminished breath sounds at base, mild crackles. ABDOMEN: Soft, nontender to palpation without rebound or guarding. EXTREMITIES: Negative for clubbing, cyanosis. No edema. DERMATOLOGIC: No rashes. MUSCULOSKELETAL: No joint effusions. NEUROLOGIC: No focal deficits. MEDICATIONS: The patient's medications have been reviewed. LABORATORY DATA: Shows a white count of 10.6, hemoglobin 12.2, hematocrit 35.4, platelet count 187, 000. Sodium 142, potassium 4.0, chloride 105, BUN 33, creatinine 2.09. ASSESSMENT AND PLAN: 1. Nonoliguric acute kidney injury on top of chronic kidney disease stage III with previous baselin e creatinine around 1.5 mg/dL. Etiology of current acute kidney injury is secondary to hemodynamics , questionable septic acute kidney injury. Patient's renal function appears to have stabilized with in last 24 hours. At this point, plan is to check UA with microanalysis to rule out other etiologie s, although suspicion is low for acute glomerulonephritis, vasculitis or interstitial nephritis. Wo uld otherwise continue current treatment plan. Continue IV antibiotics to treat underlying sepsis. Would continue current diuretic regimen. Continue supportive care, renally dose all meds, avoid ne phrotoxins. 2. Acute systolic, diastolic heart failure. The was decompensated on admission. The patient is cl inically improving. Continue diuretic regimen. We will adjust as needed. Continue lisinopril. 3. Anemia of chronic disease. Continue to monitor hemoglobin and hematocrit levels. 5. Mineral bone disorder. Monitor calcium and phosphate levels. No need for phosphate binders. 6. Sepsis secondary to pneumonia. Continue current antibiotic regimen. Patient is responding well . White count has normalized. 7. Hypertension, stable. Continue current blood pressure regimen. 8. Elevated troponin, possible non-ST elevation myocardial infarction, type 1 versus type 2. Carleen nue current treatment plan. Consider Cardiology consult. 9. History of coronary artery disease, status post coronary artery bypass graft. Continue current treatment plan. 10. Acute respiratory failure secondary to congestive heart failure exacerbation, pneumonia. The p atient is clinically improved. Continue current medical management. 11. Hypernatremia, improved. Continue current free water intake. 12. Hyperkalemia, resolved. Continue to monitor. Thank you, Dr. Fish, for this interesting consult. It will be a pleasure to follow patient with you throughout the hospital course. Dictated By: MARILYN SANTOS/LUIS Conf#: [id number] DID#: [id number]
--- NOTE | 2016-05-22 15:35 | CONS ---
Date/Time of Note Date/Time of Note DATE: 05/22/16 TIME: 15:15 Assessment/Plan Assessment/Plan Chief Complaint/Hosp Course Assessment: Acute hypoxic respiratory failure - secondary to heart failure and pneumonia, improved and off BiPAP Acute on chronic systolic heart failure - improved with blood pressure control and diuresis Sepsis secondary to pneumonia Accelerated hypertension - blood pressures improved NSTEMI - type 2 Ischemic cardiomyopathy - LVEF 20-25% Coronary artery disease - status post CABG, status post PCI to LAD History of monomorphic ventricular tachycardia, status post ICD implantation ( [facility]) - sustained ventricular tachycardia on presentation Hypertension Dyslipidemia Chronic kidney disease Carotid artery disease - status post endarterectomy Bilateral upper extremity superficial venous thrombosis - on Eliquis therapy for 3 months Recommendations: -continue Lasix 20mg BID -continue carvedilol 12.5mg BID -start hydralazine 10mg and Isordil 5mg Q8hr, up titrate as tolerated/needed -continue Eliquis 2.5mg BID, resume on aspirin 81mg daily when course of Eliquis completed -continue clopidogrel 75mg daily -continue atorvastatin -resume on amiodarone 200mg BID and mexiletine 150mg BID (was previously de- escalated to amiodarone 100mg daily only as outpatient) -ICD interrogation -antibiotics per primary team Problems: Consultation Date/Type/Reason Admit Date/Time May 20, 2016 at 21:50 Type of Consultation: Cardiology Reason for Consultation congestive heart failure Hx of Present Illness The patient is a 65 year-old male with ischemic cardiomyopathy and history of ventricular tachycardia status post ICD implantation who presented with acute onset of shortness of breath. He was noted to have blood pressure was elevated up to 213/148 and pulmonary edema on chest x-ray, consistent with accelerated hypertension and decompensated heart failure. In addition, his WBC was elevated at 27.9 and chest x-ray showed a right lower lobe consolidation, suggestive of pneumonia. He was tachycardic to the 130s on presentation, and EKG showed a monomorphic ventricular tachycardia with fusion complexes. The patient denies any defibrillations from his ICD. He was initially placed on BiPAP and received diuresis. His symptoms have improved and he is now off BiPAP. Telemetry shows sinus rhythm with a left bundle branch block. Per the patient's son, his Lasix and lisinopril were recently discontinued due to worsening renal function. He had been off of Lasix for four days prior to presentation. 14 point review of systems negative other than per HPI. Respiratory: shortness of breath Past Medical History Coronary artery disease - status post CABG, status post PCI to LAD Ischemic cardiomyopathy - LVEF 20-25% History of monomorphic ventricular tachycardia - status post ICD implantation ( [facility]) Hypertension Dyslipidemia Chronic kidney disease Carotid artery disease - status post endarterectomy Bilateral upper extremity superficial venous thrombosis Past Surgical History Past Surgical Hx: coronary bypass surgery, other (endarterectomy) Family History Significant Family History: other (noncontributory) Social History Alcohol Use: none Smoking Status: Former smoker Drug Use: none Exam/Review of Systems Vital Signs Vitals Vital Signs Date Time Temp Pulse Resp B/P Pulse Ox O2 Delivery O2 Flow Rate FiO2 05/22/16 13:51 74 05/22/16 11:52 98.3 19 119/63 96 05/22/16 05:50 3.0 05/21/16 16:28 Nasal Cannula 05/20/16 23:50 40 Intake and Output 05/21/16 05/21/16 05/22/16 15:00 23:00 07:00 Intake Total 50 ml 210 ml 400 ml Output Total 450 ml 700 ml Balance -400 ml 210 ml -300 ml Exam Constitutional: alert, well developed Psych: nl mood/affect, no complaints Head: atraumatic, normocephalic Eyes: nl conjunctiva, nl lids ENMT: nl external ears & nose, nl nasal mucosa & septum Neck: non-tender, supple, No jvd Respiratory: diminished breath sounds Cardiovascular: regular rate and rhythm Gastrointestinal: non-tender, soft Musculoskeletal: nl extremities to inspection Extremities: No clubbing, No cyanosis, No edema Neurological: nl mental status, nl speech Results Result Diagram: 05/22/16 0612 05/22/16 0612 Results 24 hrs Laboratory Tests Test 05/22/16 06:12 Anion Gap 16 Basophils # 0.0 Basophils % 0.4 Blood Morphology Comment Blood Urea Nitrogen 33 H Calcium Level 9.0 Carbon Dioxide Level 25 Chloride Level 105 Creatinine 2.09 H Eosinophils # 0.4 Eosinophils % 3.4 Glucose Level 99 Hematocrit 35.4 L Hemoglobin 12.2 L Lymphocytes # 2.3 Lymphocytes % 21.9 Magnesium Level 1.8 Mean Corpuscular Hemoglobin 29.6 Mean Corpuscular Hemoglobin Concent 34.4 Mean Corpuscular Volume 86.0 Mean Platelet Volume 11.4 H Monocytes # 0.8 Monocytes % 8.0 Neutrophils # 7.0 Neutrophils % 66.3 Nucleated Red Blood Cells # 0.0 Nucleated Red Blood Cells % 0.0 Phosphorus Level 3.3 Platelet Count 187 Potassium Level 4.0 Red Blood Count 4.12 L Red Cell Distribution Width 15.3 H Sodium Level 142 White Blood Count 10.6 # Medications Medications Current Medications Ondansetron HCl (Zofran Inj) 4 mg Q6H PRN IV NAUSEA AND/OR VOMITING; Start at 05:00 Nitroglycerin (Nitroglycerin (Sl Tab) 0.4 Mg) 1 tab Q5M PRN SL CHEST PAIN; Start 05/21/16 at 05:00 Acetaminophen (Tylenol Tab) 650 mg Q6H PRN PO PAIN LEVEL 1-3 OR FEVER; Start at 05:00 Morphine Sulfate (morphine) 2 mg Q4H PRN IV PAIN LEVEL 7-10; Start 05/21/16 at 05:00 Apixaban (Eliquis) 2.5 mg BID PO Last administered on 05/22/16 09:19; Admin Dose 2.5 MG; Start 05/21/16 at 09:00 Aspirin (Aspirin) 81 mg DAILY PO Last administered on 05/22/16 09:19; Admin Dose 81 MG; Start 05/21/16 at 09:00 Atorvastatin Calcium (Lipitor) 80 mg QHS PO Last administered on 05/21/16 20: 29; Admin Dose 80 MG; Start 05/21/16 at 21:00 Carvedilol (Coreg) 12.5 mg BID PO Last administered on 05/22/16 09:19; Admin Dose 12.5 MG; Start 05/21/16 at 09:00 Furosemide (Lasix) 20 mg BID@18 PO Last administered on 05/22/16 06:31; Admin Dose 20 MG; Start 05/21/16 at 06:00 Lisinopril (Zestril) 5 mg DAILY PO Last administered on 05/22/16 09:19; Admin Dose 5 MG; Start 05/21/16 at 09:00 Mexiletine HCl (Mexitil) 150 mg BID PO Last administered on 05/22/16 09:19; Admin Dose 150 MG; Start 05/21/16 at 09:00 Zolpidem Tartrate (Ambien) 10 mg QHS PRN PO INSOMNIA Last administered on 22:02; Admin Dose 10 MG; Start 05/21/16 at 05:00 Famotidine 20 mg 20 mg DAILY IV Last administered on 05/22/16 09:19; Admin Dose 20 MG; Start 05/21/16 at 09:00 Vancomycin HCl 250 ml @ 125 mls/hr Q24H IVPB Last administered on 05/21/16 10 :47; Admin Dose 125 MLS/HR; Start 05/21/16 at 11:00 Cefepime HCl (Maxipime 1gm/50 ml (Pmx)) 50 ml @ 100 mls/hr Q24H IVPB Last administered on 05/21/16 08:32; Admin Dose 100 MLS/HR; Start 05/21/16 at 09:00 MICHELLE CHAVEZ MD May 22, 2016 15:29
--- NOTE | 2016-05-22 16:39 | PN ---
DATE: 05/22/2016 TIME OF EVALUATION: 3:58 p.m. SUBJECTIVE DATA: Denies any dyspnea or chest pain. The patient has been walking around the unit. OBJECTIVE DATA: VITAL SIGNS: Temperature 98.3, pulse rate 70, respiratory rate 19, blood pressure 131/56, oxygen saturation 96% on room air. GENERAL: This is a well-built, well-nourished [place] male lying in bed in no apparent distress. HEENT: Head normocephalic and atraumatic. Eyes: Anicteric sclerae. Conjunctivae clear. ENT: Nasal septum is midline. Oral mucosa is dry. NECK: Supple. No JVD noticed. RESPIRATORY: Bilaterally diminished breath sounds. No adventitious breath sounds. No use of accessory muscles of respiration. CARDIAC: Regular rate and rhythm. No obvious murmurs heard. ABDOMEN: Soft, nontender, nondistended. Bowel sounds positive in all 4 quadrants. GENITOURINARY: Deferred. EXTREMITIES: No cyanosis, no clubbing, no edema. Peripheral pulses are palpable. NEUROLOGIC: The patient is awake, alert and oriented. Cranial nerves are grossly intact. LABORATORY AND DIAGNOSTIC DATA: WBC 10.6, hemoglobin 12.2, hematocrit 35.4, platelet count 187. Sodium 142, potassium 4.0, chloride 105, carbon dioxide 25 , anion gap 16, BUN 33, creatinine 2.49, glucose 99, calcium 9.0, phosphorus 3.3 , magnesium 1.8. ASSESSMENT AND PLAN: 1. Acute respiratory failure. Hypoxic, most probably secondary to congestive heart failure exacerbation. Continue diuretics while carefully monitoring the renal function. 2. Acute on chronic congestive heart failure exacerbation. Systolic dysfunction. Continue diuretics. 3. Cardiomyopathy with ejection fraction of 20 to 25%. The patient has an AICD in place. Continue beta blockers. ANNE inhibitors on hold because of worsening renal function. 4. Acute on chronic kidney injury, most probably secondary to hemodynamics versus other. The patient being followed by Nephrology. Continue to monitor the BUN and creatinine closely. 5. Elevated troponins. Etiology unclear, most probably secondary to demand ischemia. Cardiology following. 6. Possible underlying Healthcare-associated pneumonia. The patient on empiric antibiotics. 7. Coronary artery disease status post coronary artery bypass graft and status post PCI to LAD. Continue aspirin and other cardiac medications. 8. Essential hypertension. Continue antihypertensives. 9. Dyslipidemia. Continue statins. 10. Carotid artery disease. Status post carotid endarterectomy. Continue statins. 11. Bilateral upper extremity superficial vein thrombosis. On medical therapy for 3 months. 12. Fluids, electrolytes and nutrition. Continue 2 g sodium diet. 13. Deep vein thrombosis prophylaxis. On Eliquis. 14. Gastrointestinal prophylaxis. Histamine 2 receptor blockers. PLAN: Continue diuresis while carefully monitoring renal function. Continue antibiotics. Await further recommendations from Cardiology. The case was discussed with Dr. Spaulding. NEGRITO SPAULDING MD, AM/NTS Conf#: [id number] DID#: [id number] MTDD
[2016-05-22 16:43] LABS: WHITE BLOOD COUNT 27.9 10^3/ul (4.8-10.8)
[2016-05-22] MEDS: AMIODARONE 200 MG TAB PO SCH (17:25)
[2016-05-22] MEDS: ISOSORBIDE DINITRATE 5 MG TAB PO SCH ×2 (17:26→22:00)
[2016-05-22] MEDS: ZOLPIDEM 5 MG TAB PO PRN (20:55)
[2016-05-22] MEDS: ATORVASTATIN 80 MG TAB PO SCH (20:55)
[2016-05-23 00:03] VITALS: PULSE 72
[2016-05-23 00:31] VITALS: BP_SYST 155; BP_SYST 159; BP_DIAS 70; PULSE 75; RESP 20
[2016-05-23 00:48] LABS: ADD UMIC NO; URINE BILIRUBIN (Dip) NEGATIVE (NEGATIVE); URINE BLOOD (Dip) NEGATIVE (NEGATIVE); URINE COLOR LT. YELLOW (YELLOW); URINE GLUCOSE (Dip) NEGATIVE (NEGATIVE); URINE KETONES (Dip) NEGATIVE (NEGATIVE); URINE LEUKOCYTE ESTERASE (Dip) NEGATIVE (NEGATIVE); URINE NITRITE (Dip) NEGATIVE (NEGATIVE); URINE TOTAL PROTEIN (Dip) NEGATIVE (NEGATIVE); URINE UROBILINOGEN (Dip) 0.2 E.U./dL (0.1-1.0)
[2016-05-23 04:04] VITALS: PULSE 72
[2016-05-23 05:11] VITALS: BP 162/90; PULSE 86; RESP 18
[2016-05-23] MEDS: FUROSEMIDE 20 MG TAB PO SCH (06:57)
[2016-05-23] MEDS: ISOSORBIDE DINITRATE 5 MG TAB PO SCH (06:57)
[2016-05-23 07:10] VITALS: BP 147/87; RESP 19
[2016-05-23 08:20] LABS: POTASSIUM 4.1 mmol/L (3.5-5.1)
[2016-05-23 08:23] LABS: CREATININE 1.92 mg/dl (0.61-1.24)
[2016-05-23 08:24] LABS: CALCIUM 9.4 mg/dl (8.4-10.2); CHOL/HDL RATIO 4.4 RATIO; MAGNESIUM 1.9 mg/dl (1.7-2.5); PHOSPHORUS 3.2 mg/dl (2.5-4.9)
[2016-05-23 08:26] VITALS: PULSE 77
[2016-05-23 08:29] LABS: TROPONIN-I 0.108 ng/ml (0.00-0.12)
[2016-05-23 08:31] LABS: CK-MB 3.43 ng/ml (0.0-2.4)
[2016-05-23] MEDS: CEFEPIME 1GM/50 ML (PMX) 50 ML IVPB SCH (08:40)
[2016-05-23] MEDS: AMIODARONE 200 MG TAB PO SCH (08:40)
[2016-05-23] MEDS: MEXILETINE 150 MG CAP PO SCH (08:40)
[2016-05-23] MEDS: FAMOTIDINE 20 MG INJ IV SCH (08:40)
[2016-05-23] MEDS: APIXABAN 5 MG TABLET PO SCH (08:41)
[2016-05-23 08:55] LABS: THYROID STIMULATING HORMONE 2.87 MIU/L (0.465-4.680)
[2016-05-23 08:58] LABS: BASOPHIL # 0.1 10^3/ul (0.0-0.1); BASOPHILS % 0.7 % (0.0-2.0); EOSINOPHILS # 0.5 10^3/ul (0.0-0.5); EOSINOPHILS % 4.3 % (0.0-7.0); HEMATOCRIT 35.5 % (42.0-52.0); LYMPHOCYTES # 2.3 10^3/ul (0.8-2.9); MEAN CORPUSCULAR HEMOGLOBIN 29.1 pg (29.0-33.0); MEAN CORPUSCULAR HGB CONC 33.8 g/dl (32.0-37.0); MEAN CORPUSCULAR VOLUME 86.1 fl (82.0-101.0); MEAN PLATELET VOLUME 11.6 fl (7.4-10.4); MONOCYTE # 0.9 10^3/ul (0.3-0.9); MONOCYTES % 8.1 % (0.0-11.0); NEUTROPHIL # 6.9 10^3/ul (1.6-7.5); NEUTROPHILS % 64.9 % (39.0-77.0); PLATELET COUNT 196 10^3/UL (140-440); RED BLOOD COUNT 4.13 10^6/ul (4.70-6.10); RED CELL DISTRIBUTION WIDTH 15.5 % (11.5-14.5); UNCORRECTED WBC 10.7 10^3/ul (4.8-10.8); WHITE BLOOD COUNT 10.7 10^3/ul (4.8-10.8)
[2016-05-23 09:07] LABS: CONDITION 1; LH ANALYZER COMMENTS 1
--- NOTE | 2016-05-23 09:37 | CONS ---
Date/Time of Note Date/Time of Note DATE: 05/23/16 TIME: 09:30 Assessment/Plan Assessment/Plan Chief Complaint/Hosp Course Acute hypoxic respiratory failure - secondary to heart failure and pneumonia, now resolved Acute on chronic systolic heart failure - improved with blood pressure control and diuresis. Now euvolemic Sepsis secondary to pneumonia Accelerated hypertension - blood pressures improved NSTEMI - type 2 Ischemic cardiomyopathy - LVEF 20-25% Coronary artery disease - status post CABG, status post PCI to LAD History of monomorphic ventricular tachycardia, status post ICD implantation ( [facility]) - no e/o VT on ICD check Hypertension Dyslipidemia Chronic kidney disease Carotid artery disease - status post endarterectomy Bilateral upper extremity superficial venous thrombosis - on Eliquis therapy for 3 months (now completed) -ok for discharge Please d/c with following meds: -should now be on ASA 81mg and plavix 75mg daily as Eliquis can be d/c-ed -d/c Eliquis as >3 months of therapy for provoked superficial vein thrombosis -ok to restart lisinopril 10mg daily as was doing well with stable renal function as outpt -coreg 12.5mg BID -reduce amiodarone back to 100mg daily -d/c mexilitine -no hydralazine or isordil on discharge as back on ACEI -continue atorvastatin Problems: Consultation Date/Type/Reason Admit Date/Time May 20, 2016 at 21:50 Initial Consult Date Type of Consultation: Cardiology 24 HR Interval Summary Free Text/Dictation No o/n events. No arrhythmias on tele. Pt is eager to go home. ICD interrogation shows no VT Exam/Review of Systems Vital Signs Vitals Vital Signs Date Time Temp Pulse Resp B/P Pulse Ox O2 Delivery O2 Flow Rate FiO2 05/23/16 08:26 77 05/23/16 07:10 98.3 19 147/87 96 05/23/16 05:11 Room Air 05/23/16 01:43 3.0 05/20/16 23:50 40 Intake and Output 05/22/16 05/22/16 05/23/16 15:00 23:00 07:00 Intake Total 600 ml Output Total 650 ml Balance -50 ml Exam Constitutional: alert, oriented Psych: no complaints Head: atraumatic, normocephalic Neck: jvd (7cm) Respiratory: clear to auscultation Cardiovascular: regular rate and rhythm, systolic murmur (2/6), No edema Gastrointestinal: non-tender, soft Neurological: nl mental status, nl speech Results Result Diagram: 05/23/1672205/23/16722 Results 24 hrs Laboratory Tests Test 05/23/16 00:30 05/23/16 07:23 Urine Bilirubin NEGATIVE Urine Clarity CLEAR Urine Color LT. YELLOW Urine Glucose NEGATIVE Urine Hemoglobin NEGATIVE Urine Ketones NEGATIVE Urine Leukocyte Esterase NEGATIVE Urine Nitrite NEGATIVE Urine Random Creatinine 82.18 Urine Random Sodium 111 H Urine Specific [place] 1.015 Urine Total Protein Urine Urobilinogen 0.2 E.U./dL Urine pH 5.5 Anion Gap 18 H Basophils # 0.1 Basophils % 0.7 Blood Morphology Comment Blood Urea Nitrogen 31 H Calcium Level 9.4 Carbon Dioxide Level 25 Chloride Level 105 Cholesterol Level 141 Cholesterol/HDL Ratio 4.4 Creatine Kinase 33 Creatine Kinase Index 10.4 Creatinine 1.92 H Creatinine Kinase MB (Mass) 3.43 H Eosinophils # 0.5 Eosinophils % 4.3 Free Thyroxine 1.64 Glucose Level 96 HDL Cholesterol 32 Hematocrit 35.5 L Hemoglobin 12.0 L Hemoglobin A1c 6.3 H LDL Cholesterol, Calculated 71 Lymphocytes # 2.3 Lymphocytes % 22.0 Magnesium Level 1.9 Mean Corpuscular Hemoglobin 29.1 Mean Corpuscular Hemoglobin Concent 33.8 Mean Corpuscular Volume 86.1 Mean Platelet Volume 11.6 H Monocytes # 0.9 Monocytes % 8.1 Neutrophils # 6.9 Neutrophils % 64.9 Nucleated Red Blood Cells # 0.0 Nucleated Red Blood Cells % 0.0 Phosphorus Level 3.2 Platelet Count 196 Potassium Level 4.1 Red Blood Count 4.13 L Red Cell Distribution Width 15.5 H Sodium Level 144 Thyroid Stimulating Hormone (TSH) 2.870 Triglycerides Level 191 H Troponin I 0.108 White Blood Count 10.7 Medications Medications Current Medications Ondansetron HCl (Zofran Inj) 4 mg Q6H PRN IV NAUSEA AND/OR VOMITING; Start at 05:00 Nitroglycerin (Nitroglycerin (Sl Tab) 0.4 Mg) 1 tab Q5M PRN SL CHEST PAIN; Start 05/21/16 at 05:00 Acetaminophen (Tylenol Tab) 650 mg Q6H PRN PO PAIN LEVEL 1-3 OR FEVER; Start at 05:00 Morphine Sulfate (morphine) 2 mg Q4H PRN IV PAIN LEVEL 7-10; Start 05/21/16 at 05:00 Apixaban (Eliquis) 2.5 mg BID PO Last administered on 05/23/16 08:41; Admin Dose 2.5 MG; Start 05/21/16 at 09:00 Atorvastatin Calcium (Lipitor) 80 mg QHS PO Last administered on 05/22/16 20: 55; Admin Dose 80 MG; Start 05/21/16 at 21:00 Carvedilol (Coreg) 12.5 mg BID PO Last administered on 05/23/16 08:41; Admin Dose 12.5 MG; Start 05/21/16 at 09:00 Furosemide (Lasix) 20 mg BID@06,18 PO Last administered on 05/23/16 06:57; Admin Dose 20 MG; Start 05/21/16 at 06:00 Mexiletine HCl (Mexitil) 150 mg BID PO Last administered on 05/23/16 08:40; Admin Dose 150 MG; Start 05/21/16 at 09:00 Zolpidem Tartrate (Ambien) 10 mg QHS PRN PO INSOMNIA Last administered on 20:55; Admin Dose 10 MG; Start 05/21/16 at 05:00 Famotidine 20 mg 20 mg DAILY IV Last administered on 05/23/16 08:40; Admin Dose 20 MG; Start 05/21/16 at 09:00 Vancomycin HCl 250 ml @ 125 mls/hr Q24H IVPB Last administered on 05/21/16 10 :47; Admin Dose 125 MLS/HR; Start 05/21/16 at 11:00 Cefepime HCl (Maxipime 1gm/50 ml (Pmx)) 50 ml @ 100 mls/hr Q24H IVPB Last administered on 05/23/16 08:40; Admin Dose 100 MLS/HR; Start 05/21/16 at 09:00 Amiodarone HCl (Cordarone) 200 mg BID PO Last administered on 05/23/16 08:40; Admin Dose 200 MG; Start 05/22/16 at 16:00 Isosorbide Dinitrate (Isordil) 10 mg Q8 PO ; Start 05/23/16 at 14:00 Hydralazine HCl (Apresoline) 25 mg Q8 PO ; Start 05/23/16 at 14:00 EMILY TREVIÑO May 23, 2016 09:37
[2016-05-23] MEDS ORDERED: ASPIRIN 81 MG TAB PO SCH (10:00)
[2016-05-23] MEDS ORDERED: LISINOPRIL 10 MG TAB PO SCH (10:00)
--- NOTE | 2016-05-23 10:15 | PDOCDIS ---
Discharge Instructions DIAGNOSIS Discharge Diagnosis: CHF exacerbation. CONDITION Patient Condition: Stable HOME CARE INSTRUCTIONS: Special Diet: 2 gm Na OTHER ORDERS: Other Orders: 1. Low-cholesterol, preferably carbohydrate controlled diet. 2. Take medications as per prescription. Stop taking Eliquis and mexiletine. 3. Resume activities as tolerated. 4. Follow-up with Dr. Zavala as scheduled. 5. Call 911 or go to the nearest emergency room if you have chest pain or shortness of breath. NEGRITO KOTHARI NP May 23, 2016 10:15 NEGRITO KOTHARI NP May 23, 2016 10:15
[2016-05-23] MEDS ORDERED: LAS20 PO (10:17)
[2016-05-23] MEDS ORDERED: LISI10TA2 PO (10:18)
--- NOTE | 2016-05-23 11:17 | PN ---
DATE: 05/23/2016 SUBJECTIVE: The patient is stable, no acute events overnight. No fevers, chills, nausea, vomiting, no shortness of breath. OBJECTIVE: VITAL SIGNS: Blood pressure 147/87, respiration 19, pulse 75, temperature 98.3. HEENT: Head is normocephalic. NECK: Supple. HEART: Regular rate. LUNGS: Show diminished breath sounds at base. ABDOMEN: Soft, nontender to palpation. No rebound or guarding. EXTREMITIES: Negative for clubbing, cyanosis. No edema. DERMATOLOGIC: No rashes. MUSCULOSKELETAL: No joint effusions. NEUROLOGIC: No change in exam. MEDICATIONS: The patient's medications have been reviewed. LABORATORY DATA: Shows sodium 144, potassium 4.1, chloride 105, BUN 31, creatinine 1.92. ASSESSMENT AND PLAN: 1. Nonoliguric acute kidney injury on top of chronic kidney disease stage III, with previous baseli ne creatinine around 1.5 mg/dL. Etiology of acute kidney injury is secondary to hemodynamics, possi ble septic acute kidney injury. The patient's renal function has clinically been improving over the last 48 hours. The patient's urinalysis is bland, shows no active sediment. At this point, contin ue current treatment plan, supportive care, renally dose all meds, continue current diuretic regimen . 2. Acute systolic/diastolic heart failure. The patient is clinically improving. Continue current medical management. Continue diuretics. Follow up with cardiology. 3. Anemia of chronic disease. Continue to monitor hemoglobin and hematocrit levels. 4. Mineral bone disorder. Continue to monitor calcium and phosphorus levels. No need for phosphat e binders. 5. Sepsis secondary to pneumonia. The patient is clinically improving. Continue antibiotic therap y. 6. Hypertension, stable. Continue current blood pressure regimen. 7. Elevated troponin, possible non-ST elevation myocardial infarction type II. Patient was seen b y cardiology. Continue current treatment plan. 8. History of coronary artery disease, status post coronary artery bypass graft. Continue current medical management. 10. Acute respiratory failure secondary to congestive heart failure, pneumonia. The patient is cli nically improving. Continue current medical management. 11. Hyponatremia, improved. 12. Hyperkalemia, resolved. Continue to monitor. Dictated By: MARILYN SANTOS/LUIS Conf#: [id number] [facility]#: [id number]
--- NOTE | 2016-05-23 12:56 | DS ---
DATE OF ADMISSION: 05/20/2016 DATE OF DISCHARGE: 05/23/2016 FINAL DIAGNOSES: 1. Acute hypoxic respiratory failure secondary to congestive heart failure exacerbation. 2. Acute on chronic congestive heart failure exacerbation. Systolic dysfunction. 3. Acute on chronic kidney injury. 4. Possible underlying healthcare-associated pneumonia. 5. Xij-JF-[id number] myocardial infarction, type 2 event. 6. Coronary artery disease status post coronary artery bypass graft and status post percutaneous coronary intervention to left anterior descending. 7. Essential hypertension. 8. Dyslipidemia. 9. Carotid artery disease. 10. Bilateral upper extremity superficial vein thrombosis. 11. Cardiomyopathy with ejection fraction of 20 to 25%. 12. Prediabetes. CONSULTATIONS: 1. Dr. Benny Brown, cardiology 2. Dr. Nguyễn Zavala, cardiology 3. Dr. Bulmaro Jones, nephrology [facility] COURSE: This is a 55-year-old Portuguese male with multiple comorbidities who came to the emergency room with chief complaint of chest pain and shortness of breath. In the emergency room, the patient underwent a chest x -ray that showed pulmonary edema and possible right upper lobe pneumonia. The patient was also noticed to have a BUN and creatinine of 28 and 2.2 respectively. The patient was also noticed to have a troponin I 0.141. Provided the patient's history of present illness, his comorbidities, and the diagnostic findings, a clinical decision was made to admit the patient to inpatient setting to have him further evaluated. The patient was initially started on BiPAP therapy because of significant dyspnea. The patient was also started on nitroglycerin drip. The patient was later weaned off noninvasive positive pressure ventilation and nitroglycerin drip. The patient was maintained on diuretics while carefully monitoring the patient's BUN and creatinine. Nephrology consult was called because of worsening renal function. The patient has chronic kidney disease stage III. Cardiology consult was obtained since the patient has extensive cardiac history , and the patient was also having elevated troponins. The patient was also started on empiric antibiotics for any underlying healthcare-associated pneumonia. The patient's respiratory status improved with treatment strategy. The patient's repeat chest x-ray showed almost complete resolution of the pulmonary edema. It was concluded that the patient's infiltrates evident on the chest x-ray could have been most probably fluid versus pneumonia. The patient remained afebrile. Although the patient had elevated WBC upon presentation, the patient's WBC has been normalized. The patient's espinosa cultures remained negative. The patient's antibiotics will be discontinued upon discharge. The patient has a known history of congestive heart failure. The patient responded well to diuretics. The patient has underlying cardiomyopathy. The patient was maintained on beta blockers. The patient's ANNE inhibitors were put on hold because of worsening renal function. Upon discharge, this will be resumed since the patient's renal function is better. The patient's elevated troponins could have been most probably secondary to demand ischemia. The patient also has history of coronary artery disease status post coronary artery bypass graft in the past. The patient was maintained on his cardiac medications. The patient has a recent history of bilateral upper extremity superficial vein thrombosis. Consequently, the patient was placed on therapy with factor Xa inhibitors. This will be discontinued since the 3-month period is over. The patient has underlying dyslipidemia. He was maintained on statins for the same. He also has history of carotid artery disease, and he is status post carotid endarterectomy. The patient was also noticed to have prediabetes as evidenced by a hemoglobin A1c of 6.3. The patient ideally needs to be started on metformin. However, this will be held because of the borderline renal function of the patient. The patient's chest x-ray also revealed a persistent opacity in the right suprahilar region. As per the patient's family, this has been evaluated as outpatient, and the patient will follow up outpatient for this persistent right perihilar opacity. The patient had a stable hospital course. The patient was cleared by consultants to be discharged home. The patient denied any complaints at the time of discharge. DISCHARGE DISPOSITION AND PLAN: The patient will be discharged home today. The patient was instructed to follow a low cholesterol, carbohydrate-controlled diet. The patient was instructed to take medications as per prescription. He was instructed to stop taking Eliquis and mexiletine. The patient was instructed to resume activities as tolerated. He was instructed to follow up with Dr. Zavala as scheduled. He was instructed to call 911 or go to the nearest emergency room if he has any chest pain or shortness of breath. The patient verbalized understanding of his discharge instructions. CONDITION AT DISCHARGE: Stable. DISCHARGE MEDICATIONS: 1. Lasix 20 mg p.o. b.i.d. 2. Lisinopril 10 mg p.o. daily. 3. Amiodarone 100 mg p.o. daily. 4. Aspirin 81 mg p.o. daily. 5. Atorvastatin 80 mg p.o. at bedtime. 6. Coreg 12.5 mg p.o. b.i.d. 7. Zetia 10 mg p.o. daily. 8. Ambien 10 mg p.o. at bedtime p.r.n. insomnia. PERTINENT LABORATORY AND DIAGNOSTIC DATA: 1. Latest chest x-ray on 05/22/2016. Near complete resolution of bilateral pulmonary edema and small effusions. Persistent opacity In the right suprahilar region. Concern about focal consolidation versus mass. There is cardiomegaly with a left-sided pacemaker in place. 2. Latest CBC: WBC 10.7, hemoglobin 12.0, hematocrit 35.5, platelet count 196. 3. Latest BMP: Sodium 144, potassium 4.1, chloride 105, carbon dioxide 25, anion gap 18, BUN 31, creatinine 1.92, glucose 96, calcium 9.4, phosphorus 3.2, magnesium 1.9. 4. Hemoglobin A1c 6.3. 5. Fasting lipid panel: Triglycerides 191, total cholesterol 141, LDL 71, HDL 32. At this time, I would like to thank all the consultants for seeing the patient and providing clinical recommendations. The case and management of this patient was fully discussed with Dr. Spaulding. Approximately 35 minutes was spent on coordinating the discharge on this patient. NEGRITO SPAULDING MD, AM/LUIS Conf#: [id number] DID#: [id number] MTDD
[2016-05-23] MEDS ORDERED: ISOSORBIDE DINITRATE 5 MG TAB PO SCH (14:00)
[2016-05-23] MEDS ORDERED: ISOSORBIDE DINITRATE 10 MG TAB PO SCH (14:00)
[2016-05-24] MEDS ORDERED: AMIODARONE 200 MG TAB PO SCH (09:00)
[2016-05-24 17:17] LABS: MICROALBUMIN 1.9 mg/dL
== END 2016-05-23 11:30 | disposition home or self-care (01) | DRG 871 ==
LOC: E/R 20:30 → TEL 21:50
PROVIDERS: ADMIT Internal Medicine; ATTEND Internal Medicine
PROC: 5A09457 Assistance with Respiratory Ventilation, 24-96 Consecutive Hours, Continuous Positive Airway Pressure (ICD-10-PCS; principal; 2016-05-20)
DX: A41.9 Sepsis, unspecified organism (principal); I21.4 Non-ST elevation (NSTEMI) myocardial infarction; J96.00 Acute respiratory failure, unspecified whether with hypoxia or hypercapnia; I50.23 Acute on chronic systolic (congestive) heart failure; N17.9 Acute kidney failure, unspecified; I13.0 Hypertensive heart and chronic kidney disease with heart failure and stage 1 through stage 4 chronic kidney disease, or unspecified chronic kidney disease; E87.0 Hyperosmolality and hypernatremia; Z95.1 Presence of aortocoronary bypass graft; Z95.5 Presence of coronary angioplasty implant and graft; Z95.0 Presence of cardiac pacemaker; I25.2 Old myocardial infarction; Z87.891 Personal history of nicotine dependence; D63.8 Anemia in other chronic diseases classified elsewhere; N18.3 Chronic kidney disease, stage 3 (moderate); E87.5 Hyperkalemia; R65.20 Severe sepsis without septic shock; R73.03 Prediabetes
CPT/HCPCS: 36415; 36600; 71010; 80048; 80053; 80061; 81003; 82043; 82550; 82553; 82803; 83036; 83605; 83735; 84100; 84155; 84300; 84439; 84443; 84484; 85025; 85610; 85730; 87040; 87081; 87400; 93005; 94660; 96365; 96366; 96368; 96375; 96376; J0692; J1940; J3370

== ENCOUNTER 2016-07-08 00:34 | Inpatient (IN) | payer MEDICARE, OTHER ==
[~2016-07-08] VITALS: Ht 167.6 cm; Wt 74.6 kg
[2016-07-08] VITALS (7 sets, daily range): BP systolic 135–176; BP diastolic 73–94; PULSE 67–86; RESP 16–18; Ht 167.6 cm; Wt 74.6 kg
[~2016-07-08 00:34] MED LIST changes: +AMIO100T4 PO; -AMIO200T2 PO; -APIX5TAB PO; -CEPH500C PO; -CLOP75TA28 PO; -DOCU-144 PO; -FAMO-95 PO; -FURO40TA4 PO; -HYDR-3498 PO; +LAS20 PO; -MEX150 PO; -NIT4 SL
[2016-07-08] MEDS ORDERED: IPRATROPIUM (NEB) 0.5 MG/2.5 ML AMP INH STA (00:51)
[2016-07-08] MEDS ORDERED: LEVALBUTEROL (NEB) 1.25 MG/0.5 ML AMP INH STA (00:51)
[2016-07-08 00:58] LABS: ADD SCAN DIFF NO
[2016-07-08 01:13] LABS: ABNORMAL IP MESSAGE 1; BASOPHIL # 0.1 10^3/ul (0.0-0.1); BASOPHILS % 0.7 % (0.0-2.0); EOSINOPHILS # 0.6 10^3/ul (0.0-0.5); EOSINOPHILS % 3.6 % (0.0-7.0); HEMATOCRIT 43.9 % (42.0-52.0); HEMOGLOBIN 13.1 g/dl (14.0-18.0); INR 1.08; LYMPHOCYTES # 5.2 10^3/ul (0.8-2.9); LYMPHOCYTES % 29.4 % (15.0-51.0); MEAN CORPUSCULAR HEMOGLOBIN 27.9 pg (29.0-33.0); MEAN CORPUSCULAR HGB CONC 29.8 g/dl (32.0-37.0); MEAN CORPUSCULAR VOLUME 93.6 fl (82.0-101.0); MEAN PLATELET VOLUME 11.6 fl (7.4-10.4); MONOCYTE # 1.4 10^3/ul (0.3-0.9); NEUTROPHIL # 10.2 10^3/ul (1.6-7.5); PLATELET COUNT 671 10^3/UL (140-415); PT RATIO 1.1; RED BLOOD COUNT 4.69 10^6/ul (4.70-6.10); RED CELL DISTRIBUTION WIDTH 14.1 % (11.5-14.5); WHITE BLOOD COUNT 17.8 10^3/ul (4.8-10.8)
[2016-07-08 01:14] LABS: PARTIAL THROMBOPLASTIN TIME 29.2 Sec (25.0-35.0)
[2016-07-08 01:17] LABS: ALBUMIN 4.4 g/dl (3.3-4.9); ALBUMIN/GLOBULIN RATIO 1.29; BILIRUBIN,INDIRECT 0.7 mg/dl (0-1.1); BILIRUBIN,TOTAL 0.7 mg/dl (0.2-1.3); CALCIUM 8.9 mg/dl (8.4-10.2); CREATININE 2.7 mg/dl (0.61-1.24); POTASSIUM 5.6 mmol/L (3.5-5.1); TOTAL PROTEIN 7.8 g/dl (6.1-8.1)
[2016-07-08 01:27] LABS: TROPONIN-I 0.082 ng/ml (0.00-0.12)
[2016-07-08 02:08] LABS: AADO2 Arterial 273.4 mmHg (7.0-24.0); Allen Test ACCEPTAB; Arterial Base Excess -0.8 mmol/L (-3.0-3); Arterial COHb 0.3 % (0.0-3.0); Arterial Fraction of Oxyhgb 98.8 % (93.0-99.0); Arterial MetHb 0.4 % (0.0-1.5); Arterial Total Hemglobin 13.4 g/dl (12.0-18.0); Blood Gas IEPAP 15/5; MODE MASK - BIPAP
--- NOTE | 2016-07-08 02:13 | RADRPT ---
PROCEDURE: XR Chest. CLINICAL INDICATION: Sepsis. TECHNIQUE: Single frontal chest x-ray. COMPARISON: 05/22/2016 FINDINGS: The patient status post sternotomy. Left subclavian biventricular pacemaker is unchanged.. The hea rt is enlarged.. There is redemonstrated 4.8 x 3.3 cm right suprahilar mass-like density although sl ightly less prominent. There is mild pulmonary vascular congestion.. There is no pleural effusion. There is no pneumothorax. The osseous structures are unremarkable. IMPRESSION: Cardiomegaly. Mild pulmonary vascular congestion. Redemonstrated right suprahilar density suspicio us for a mass, slightly less prominent. Recommend correlation with contrast enhanced CT of the ches t when clinically appropriate. RPTAT: HMVK .Onel Dean MD, Date Time Electronically viewed and signed by .Onel Dean MD, on 07/08/2016 02:12 .K/
[2016-07-08] MEDS ORDERED: PIPER-TAZO 2.25 GM (PMX) 50 ML IVPB ONE (02:30)
[2016-07-08] MEDS ORDERED: VANCOMYCIN 1 GM (PMX) 250 ML IVPB SCH (02:30)
[2016-07-08 02:44] LABS: URINE BLOOD (Dip) POC Negative (NEGATIVE)
[2016-07-08 02:58] LABS: ADD UMIC NO; URINE BILIRUBIN (Dip) NEGATIVE (NEGATIVE); URINE BLOOD (Dip) NEGATIVE (NEGATIVE); URINE COLOR LT. YELLOW (YELLOW); URINE GLUCOSE (Dip) NEGATIVE (NEGATIVE); URINE KETONES (Dip) NEGATIVE (NEGATIVE); URINE LEUKOCYTE ESTERASE (Dip) NEGATIVE (NEGATIVE); URINE NITRITE (Dip) NEGATIVE (NEGATIVE); URINE TOTAL PROTEIN (Dip) NEGATIVE (NEGATIVE); URINE UROBILINOGEN (Dip) 0.2 E.U./dL (0.1-1.0)
--- NOTE | 2016-07-08 03:44 | HP ---
DAMI AVILA DO 07/08/16 0344: Date/Time of Note Date/Time of Note DATE: 07/08/16 TIME: 03:43 HPI/ROS Admit Date/Time Admit Date/Time 07/08/16 0312 PMH/Family/Social Past Surgical History Past Surgical Hx: coronary bypass surgery, other Social History Smoking Status: Former smoker Exam/Review of Systems Vital Signs Vitals Vital Signs Date Time Temp Pulse Resp B/P Pulse Ox O2 Delivery O2 Flow Rate FiO2 07/08/16 03:00 70 21 151/77 98 Nasal Cannula 3.0 07/08/16 02:00 100 07/08/16 00:39 97.6 Labs Result Diagram: 07/08/165007/08/1650 Medications Medications Current Medications Vancomycin HCl (Vancocin) 250 ml @ 125 mls/hr ONCE IVPB Last administered on t 03:16; Admin Dose 125 MLS/HR; Start 07/08/16 at 02:30; Stop 07/08/16 at 04 :29 KEYA BLANCO MD 07/08/16 0409: HPI/ROS Admit Date/Time Admit Date/Time Chief complaint: Shortness of breath Hx of Present Illness The patient is a 65-year-old male, presenting to the ER because of shortness of breath today, worse for the last 2 hours. He has similar symptoms previously. 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 He denies any fever, neck pain, chest pain, complaints of cough for the last couple days. He denies abdominal pain, vomiting, dysuria, diarrhea. He used to smoke. Past medical history: CAD, history of non-STEMI, dyslipidemia, history of CHF, ischemic cardiomyopathy 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%, chronic kidney disease, anxiety Past surgical history: Pacemaker, CABG Exam/Review of Systems Labs Result Diagram: 07/08/165007/08/16 005 DAMI AVILA DO Jul 08, 2016 03:44 KEYA BLANCO MD Jul 08, 2016 04:09
--- NOTE | 2016-07-08 04:17 | ERA ---
ER Documentation Chief Complaint Date/Time DATE: 07/08/16 TIME: 04:09 Chief Complaint BIBA RA90, SOB HPI The patient is a 65-year-old male, presenting to the ER because of shortness of breath today, worse for the last 2 hours. He has similar symptoms previously. 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 He denies any fever, neck pain, chest pain, complaints of cough for the last couple days. He denies abdominal pain, vomiting, dysuria, diarrhea. He used to smoke. Past medical history: CAD, history of non-STEMI, dyslipidemia, history of CHF, ischemic cardiomyopathy 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%, chronic kidney disease, anxiety Past surgical history: Pacemaker, CABG ROS All systems reviewed and are negative except as per history of present illness. Medications Home Meds Active Scripts Lisinopril* (Lisinopril*) 10 Mg Tablet, 10 MG PO DAILY for 30 Days, TAB Prov:NEGRITO KOTHARI REPORTING ANALYST 05/23/16 Furosemide (Lasix) 20 Mg Tab, 20 MG PO BID@06,18 for 30 Days, TAB Prov:NEGRITO KOTHARI NP 05/23/16 Carvedilol* (Carvedilol*) 12.5 Mg Tablet, 12.5 MG PO BID, #60 TAB Prov:GIA WILDER MD 03/07/16 Aspirin* (Aspirin* Chew) 81 Mg Tab.chew, 81 MG PO DAILY, #30 TAB.CHEW Prov:GIA WILDER MD 03/07/16 Atorvastatin* (Atorvastatin*) 80 Mg Tablet, 80 MG PO QHS, #30 TAB Prov:GIA WILDER MD 03/07/16 Reported Medications Ezetimibe* (Zetia*) 10 Mg Tablet, 10 MG PO DAILY, TAB 05/21/16 Amiodarone Hcl* (Amiodarone Hcl*) 100 Mg Tablet, 100 MG PO DAILY, #30 TAB 05/21/16 Zolpidem Tartrate* (Zolpidem Tartrate*) 10 Mg Tablet, 10 MG PO QHS Y for INSOMNIA, #30 TAB 01/25/16 Allergies Allergies: Coded Allergies: No Known Allergy (Unverified , 05/20/16) PMhx/Soc History of Surgery: Yes (CBAG,left chest pacemaker) Anesthesia Reaction: No Hx Neurological Disorder: No Hx Respiratory Disorders: Yes (pneumonia) Hx Cardiac Disorders: Yes (CAD, cardiomyopathy,AMI,high cholesterol,CHF) Hx Psychiatric Problems: No Hx Alcohol Use: Yes (rarely) Hx Substance Use: No Hx Tobacco Use: Yes (quit) Smoking Status: Former smoker Physical Exam Vitals Vital Signs Date Time Temp Pulse Resp B/P Pulse Ox O2 Delivery O2 Flow Rate FiO2 07/08/16 03:00 70 21 151/77 98 Nasal Cannula 3.0 07/08/16 02:30 77 21 158/88 100 Nasal Cannula 3.0 07/08/16 02:23 100 3.0 07/08/16 02:00 97 100 100 07/08/16 02:00 74 21 152/82 100 BIPAP 07/08/16 01:30 81 22 152/88 100 BIPAP 07/08/16 01:00 92 36 164/99 100 BIPAP 07/08/16 00:45 104 23 174/102 100 BIPAP 07/08/16 00:40 94 97 100 07/08/16 00:39 97.6 108 23 175/111 96 Physical Exam Const: Moderate acute respiratory distress. Head: Atraumatic. Eyes: Normal Conjunctiva. ENT: Normal External Ears, Nose and Mouth. Neck: Full range of motion. No meningismus. Resp: Bilateral expiratory wheezes, tachypneic Cardio: Regular rate and rhythm, no murmurs. Abd: Soft, non distended, normal bowel sounds, non tender. Skin: No petechiae or rashes. Back: No midline or flank tenderness. Ext: No cyanosis, or edema. Neur: Awake and alert. No focal deficit Psych: Normal Mood and Affect. Result Diagram: 07/08/16 0051 07/08/16 0051 Results 24 hrs Laboratory Tests Test 07/08/16 00:51 07/08/16 02:00 07/08/16 02:44 07/08/16 02:45 White Blood Count 17.810^3/ul Red Blood Count 4.6910^6/ul Hemoglobin 13.1g/dl Hematocrit 43.9% Mean Corpuscular Volume 93.6fl Mean Corpuscular Hemoglobin 27.9pg Mean Corpuscular Hemoglobin Concent 29.8g/dl Red Cell Distribution Width 14.1% Platelet Count 20749^3/UL Mean Platelet Volume 11.6fl Neutrophils % 57.0% Lymphocytes % 29.4% Monocytes % 8.0% Eosinophils % 3.6% Basophils % 0.7% Nucleated Red Blood Cells % 0.0/100WBC Neutrophils # 10.210^3/ul Lymphocytes # 5.210^3/ul Monocytes # 1.410^3/ul Eosinophils # 0.610^3/ul Basophils # 0.110^3/ul Nucleated Red Blood Cells # 0.010^3/ul Prothrombin Time 14.0Sec Prothrombin Time Ratio 1.1 INR International Normalized Ratio 1.08 Activated Partial Thromboplast Time 29.2Sec Sodium Level 138mmol/L Potassium Level 5.6mmol/L Chloride Level 102mmol/L Carbon Dioxide Level 24mmol/L Anion Gap 18 Blood Urea Nitrogen 39mg/dl Creatinine 2.70mg/dl Glucose Level 275mg/dl Lactic Acid Level 3.1mmol/L Calcium Level 8.9mg/dl Total Bilirubin 0.7mg/dl Direct Bilirubin 0.00mg/dl Indirect Bilirubin 0.7mg/dl Aspartate Amino Transf (AST/SGOT) 34IU/L Alanine Aminotransferase (ALT/SGPT) 29IU/L Alkaline Phosphatase 88IU/L Troponin I 0.082ng/ml Total Protein 7.8g/dl Albumin 4.4g/dl Globulin 3.40g/dl Albumin/Globulin Ratio 1.29 Blood Gas Specimen Source Blood arterial Arterial Blood Date Drawn 07/08/2016 2:03:20 AM Arterial Blood pH (Temp corrected) 7.390 Arterial Blood pCO2 (Temp correct) 40.6mmhg Arterial Blood pO2 (Temp corrected) 399.0mmHG Arterial Blood HCO3 24.0mmol/L Arterial Blood Base Excess -0.8mmol/L Arterial Blood Oxygen Saturation 99.5mmHG Aaron Test ACCEPTAB Arterial Blood Gas Puncture Site Right Radial Arterial Blood Carboxyhemoglobin 0.3% Arterial Blood Methemoglobin 0.4% Blood Gas A-a O2 Differential 273.4mmHg Oxyhemoglobin Percent 98.8% Total Hemoglobin 13.4g/dl Blood Gas Temperature 37.0C Blood Gas Respiration Rate 20.0 Blood Gas Actual Respiration Rate 21 Blood Gas Modality MASK - BIPAP FiO2 100.0% Blood Gas IPAP/EPAP Ratio 15/5 Blood Gas Notified Whom MG Blood Gas Notified Time 07/08/2016 2:07:52 AM Bedside Urine pH (LAB) 5.5 Bedside Urine Protein (LAB) Trace Bedside Urine Glucose (UA) Negative Bedside Urine Ketones (LAB) Negative Bedside Urine Blood Negative Bedside Urine Nitrite (LAB) Negative Bedside Urine Leukocyte Esterase (L Negative Urine Color LT. YELLOW Urine Clarity CLEAR Urine pH 6.0 Urine Specific [place] 1.015 Urine Ketones NEGATIVE Urine Nitrite NEGATIVE Urine Bilirubin NEGATIVE Urine Urobilinogen 0.2 E.U./dL Urine Leukocyte Esterase NEGATIVE Urine Hemoglobin NEGATIVE Urine Glucose NEGATIVE% Urine Total Protein NEGATIVE Current Medications Medications (Trade) Dose Ordered Sig/Deanna Route PRN Reason Start Time Stop Time Status Last Admin Dose Admin Levalbuterol (Xopenex Neb) 3.75 mg ONCE STAT INH 07/08/16 00:51 07/08/16 00:53 DC 07/08/16 00:56 Ipratropium [place] 1.5 mg 1.5 mg ONCE STAT INH 07/08/16 00:51 07/08/16 00:53 DC 07/08/16 00:56 Piperacillin Sod/ Tazobactam Sod 50 ml @ 100 mls/hr ONCE ONCE IVPB 07/08/16 02:30 07/08/16 02:59 DC 07/08/16 02:51 Vancomycin HCl (Vancocin) 250 ml @ 125 mls/hr ONCE IVPB 07/08/16 02:30 07/08/16 04:29 07/08/16 03:16 Procedures/MDM [place] [id number] Radiology Main Line: [phone] DIAGNOSTIC IMAGING REPORT Patient: JUANIS PA : 1950 Age: 65 Sex: M MR #: [id number] DOS: 07/08/16 0041 Ordering MD: ONEL BLANCO MD Location: E/R Room/Bed: PROCEDURE: XR Chest. CLINICAL INDICATION: Sepsis. TECHNIQUE: Single frontal chest x-ray. COMPARISON: 05/22/2016 FINDINGS: The patient status post sternotomy. Left subclavian biventricular pacemaker is unchanged.. The heart is enlarged.. There is redemonstrated 4.8 x 3.3 cm right suprahilar mass-like density although slightly less prominent. There is mild pulmonary vascular congestion.. There is no pleural effusion. There is no pneumothorax. The osseous structures are unremarkable. IMPRESSION: Cardiomegaly. Mild pulmonary vascular congestion. Redemonstrated right suprahilar density suspicious for a mass, slightly less prominent. Recommend correlation with contrast enhanced CT of the chest when clinically appropriate. RPTAT: HMVK .Onel Dean MD, MD Date Time Electronically viewed and signed by .Onel Dean MD, on 07/08/2016 02:12 .K/ CC: ONEL BLANCO MD MEDICAL MAKING DECISION: The patient is a 65-year-old male, presenting with acute respiratory failure, acute severe sepsis, suspected perihilar mass, acute hyperkalemia. He was immediately treated with BiPAP and Xopenex 3% 5 mg and Atrovent 1.5 mg nebulizer over one hour with good response. Repeat ABG show improvement, he was therefore weaned down to nasal cannula and was able to tolerate nasal cannula well. He was treated with Zosyn IV and vancomycin IV Admit MDM: Patient's infectious symptoms have not stabilized and the patient is at risk of rapid decompensation. The patient will be admitted for careful hydration, antibiotic therapy, and infectious source control. Severe Sepsis criteria: Infectious source: Unknown End organ damage indicated by: Lactate > 2.0 mmol/L Acute Resp Failure (sat < 92% w/o oxygen) Sepsis Management: Time of recognition of severe sepsis/septic shock:1 AM Within 3 hours of recognition: Blood cultures x 2 before broad-spectrum antibiotics: Yes 30 ml/kg NS bolus not completed because he has chronic kidney disease and history of CHF and cardiomyopathy with low EF 20% Initial lactate 3.1 Repeat lactate pending Critical Care: Critical care time 35 minutes Emergent fluid management while maintaining close respiratory support. Provision of immediate and broad-spectrum antibiotic therapy. Simultaneous assessment for possible sources in order to direct targeted therapy. Consideration for invasive and chemical support to prevent cardiopulmonary collapse. Septic Shock Assessment: Any lactic acid > 4.0 no Persistent hypotension (SBP < 90 or 40 mmHg drop, MAP < 65) despite 30 mL/kg IV fluid bolusno Departure Diagnosis: Primary Impression: Acute respiratory failure Additional Impressions: Severe sepsis Hyperkalemia Anemia Lung mass Condition: Stable Comments I discussed the findings with the patient. I discussed the patient with the on- call hospitalist Dr. Ruiz who was made aware of the lab, the treatment, the patient condition. The patient is admitted to telemetry at 3:10 AM ONEL BLANCO MD Jul 08, 2016 04:17
--- NOTE | 2016-07-08 05:42 | HP ---
Date/Time of Note Date/Time of Note DATE: 07/08/16 TIME: 05:36 Assessment/Plan VTE Prophylaxis VTE Prophylaxis Intervention: other (Lovenox) Lines/Catheters IV Catheter Type (from Nrs): Peripheral IV Assessment/Plan Assessment/Plan 1) Severe sepsis - Admit to Telemetry - Abx - IV Hydration, gentle due to poor ejection fraction and history of CHF - Serial Lactic Acids 2) Acute respiratory failure - RESOLVED after trial on BiPAP 3) Hyperglycemia and Hyperkalemia with no history of DM - Re-check blood sugar on floor and then decide how much insulin to give to improve sugar and corect hyperkalemia 4) Lung mass, 4.8 x 3.3 cm right suprahilar mass-like density although slightly less prominent. - Recommend correlation with contrast enhanced CT of the chest when clinically appropriate. (Doubtful becasuue of patient's persistently elevated Creatinine) - Consider Pulmonary Consult 5) Anemia, Normochromic, Normocytic, mild - No sign of active bleeding - Monitor H/H occasionally 6) Pacemaker in Situ HPI/ROS Admit Date/Time Admit Date/Time 07/08/16 0312 Hx of Present Illness Patient states he is ready to go home when I see him. He states he is breathing fine and can go home. History is obtained from ER notes as no family or Paramedics are present. Patient is awake and comfortable and answers questions about himself. He is a 65-year-old male, brought to the ER via Ambulance due to shortness of breath today, worse for the last 2 hours. He has similar symptoms previously. The history is mostly obtained from the money examiner and his son. He denies any fever, neck pain, chest pain, complaints of cough for the last couple days. He denies abdominal pain, vomiting, dysuria, diarrhea. He used to smoke. ER Course per ER Physician: The patient is a 65-year-old male, presenting with acute respiratory failure, acute severe sepsis, suspected perihilar mass, acute hyperkalemia. He was immediately treated with BiPAP and Xopenex 3% 5 mg and Atrovent 1.5 mg nebulizer over one hour with good response. Repeat ABG show improvement, he was therefore weaned down to nasal cannula and was able to tolerate nasal cannula well. He was treated with Zosyn IV and vancomycin IV. He meets criteria for severe Sepsis - Infection suspected/Source Unknown. Lactate > 2.0 mmol/L Acute Resp Failure (sat < 92% w/o oxygen). Blood cultures x 2 were drawn before broad-spectrum antibiotics. He did not get a 30 mL/kG NS bolus because he has chronic kidney disease and history of CHF and cardiomyopathy with low EF 20% Initial lactate 3.1 Repeat lactate pending ROS .General: Admits: Denies: Fever, Chills, Poor Appetite, Generalized Body Aches Eyes: Admits: Denies: Blurry Vision, Double Vision HENT: Admits: Denies: Ear Pain/Pressure, Runny/Stuffy Nose, Sore Throat Cardiovascular: Admits: Denies: Chest Pain, Palpitations, Leg Swelling Pulmonary: Admits: Shortness of Breath - RESOLVED Denies: Cough, Wheeze Gastrointestinal: Admits: Denies: Abdominal Pain, Nausea, Vomiting, Diarrhea, Blood in Stool, Black-Colored Stool Urogenital: Admits: Denies: Burning with Urination, Urinary Frequency, Blood in Urine Musculoskeletal: Admits: Denies: Joint Pain, Joint Swelling, Muscle Pain Neurological: Admits: Denies: Headache, Dizziness, Numbness, Tingling, Shooting Pains Integumentary: Admits: Denies: Rash, Itch PMH/Family/Social Past Medical History CAD; History of non-STEMI; Dyslipidemia; CHF; Ischemic Cardiomyopathy 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%; Chronic Kidney Disease; Pneumonia; Anxiety Past Surgical History Pacemaker; CABG Past Surgical Hx: coronary bypass surgery, other Social History Alcohol Use: rarely Smoking Status: Former smoker Drug Use: none Exam/Review of Systems Vital Signs Vitals Vital Signs Date Time Temp Pulse Resp B/P Pulse Ox O2 Delivery O2 Flow Rate FiO2 07/08/16 05:18 92 2.0 07/08/16 04:52 Nasal Cannula 07/08/16 04:20 97.9 86 16 176/81 07/08/16 02:00 100 Exam Exam General: Alert and cooperative on O2 via NC, in no acute distress Eyes: Sclera White, EOMI HENT: Normocephalic/Atraumatic, External Ears/Nose Normal, Moist Mucus Membranes Neck: Supple, Trachea Midline Cardiovascular: Normal Rate, Regular Rhythm, Normal S1 and S2, No Murmur, No Extra Sounds. Radial pulse +2/4. No pedal Edema. Pulmonary: Decreased airflow throughout, Normal Respiratory Effort, No Rales, Rhonchi or Wheezes Gastrointestinal: Normoactive Bowel Sounds, Soft, Non-Tender/Non-Distended, No Hepatosplenomegaly Appreciated, No Pulsatile Masses Urogenital: Deferred Musculoskeletal: Normal Muscle Bulk and Tone Neurological: CN II - XII Grossly Intact, Non-Focal, Speech Normal Integumentary: Normal Moisture and Temperature, Good Turgor, No Jaundice, No Rash Lymphatic: No Cervical Lymphadenopathy Psychiatric: Appropriate Mood and Affect, Good Eye Contact Labs Result Diagram: 07/08/165007/08/1650 Medications Medications Home Meds Active Scripts Lisinopril* (Lisinopril*) 10 Mg Tablet, 10 MG PO DAILY for 30 Days, TAB Prov:NEGRITO KOTHARI SIEBEL ADMINISTRATOR 05/23/16 Furosemide (Lasix) 20 Mg Tab, 20 MG PO BID@06,18 for 30 Days, TAB Prov:NEGRITO KOTHARI SIEBEL ADMINISTRATOR 05/23/16 Carvedilol* (Carvedilol*) 12.5 Mg Tablet, 12.5 MG PO BID, #60 TAB Prov:GIA WILDER MD 03/07/16 Aspirin* (Aspirin* Chew) 81 Mg Tab.chew, 81 MG PO DAILY, #30 TAB.CHEW Prov:GIA WILDER MD 03/07/16 Atorvastatin* (Atorvastatin*) 80 Mg Tablet, 80 MG PO QHS, #30 TAB Prov:GIA WILDER MD 03/07/16 Reported Medications Ezetimibe* (Zetia*) 10 Mg Tablet, 10 MG PO DAILY, TAB 05/21/16 Amiodarone Hcl* (Amiodarone Hcl*) 100 Mg Tablet, 100 MG PO DAILY, #30 TAB 05/21/16 Zolpidem Tartrate* (Zolpidem Tartrate*) 10 Mg Tablet, 10 MG PO QHS Y for INSOMNIA, #30 TAB 01/25/16 Current Medications Medications (Trade) Dose Ordered Sig/Deanna Route PRN Reason Start Time Stop Time Status Last Admin Dose Admin Levalbuterol (Xopenex Neb) 3.75 mg ONCE STAT INH 07/08/16 00:51 07/08/16 00:53 DC 07/08/16 00:56 Ipratropium [place] 1.5 mg 1.5 mg ONCE STAT INH 07/08/16 00:51 07/08/16 00:53 DC 07/08/16 00:56 Piperacillin Sod/ Tazobactam Sod 50 ml @ 100 mls/hr ONCE ONCE IVPB 07/08/16 02:30 07/08/16 02:59 DC 07/08/16 02:51 Vancomycin HCl (Vancocin) 250 ml @ 125 mls/hr ONCE IVPB 07/08/16 02:30 07/08/16 04:29 07/08/16 03:16 Procedures Procedures Laboratory Tests Test 07/08/16 00:51 07/08/16 02:00 07/08/16 02:44 07/08/16 02:45 White Blood Count 17.810^3/ul Red Blood Count 4.6910^6/ul Hemoglobin 13.1g/dl Hematocrit 43.9% Mean Corpuscular Volume 93.6fl Mean Corpuscular Hemoglobin 27.9pg Mean Corpuscular Hemoglobin Concent 29.8g/dl Red Cell Distribution Width 14.1% Platelet Count 72120^3/UL Mean Platelet Volume 11.6fl Neutrophils % 57.0% Lymphocytes % 29.4% Monocytes % 8.0% Eosinophils % 3.6% Basophils % 0.7% Nucleated Red Blood Cells % 0.0/100WBC Neutrophils # 10.210^3/ul Lymphocytes # 5.210^3/ul Monocytes # 1.410^3/ul Eosinophils # 0.610^3/ul Basophils # 0.110^3/ul Nucleated Red Blood Cells # 0.010^3/ul Prothrombin Time 14.0Sec Prothrombin Time Ratio 1.1 INR International Normalized Ratio 1.08 Activated Partial Thromboplast Time 29.2Sec Sodium Level 138mmol/L Potassium Level 5.6mmol/L Chloride Level 102mmol/L Carbon Dioxide Level 24mmol/L Anion Gap 18 Blood Urea Nitrogen 39mg/dl Creatinine 2.70mg/dl Glucose Level 275mg/dl Lactic Acid Level 3.1mmol/L Calcium Level 8.9mg/dl Total Bilirubin 0.7mg/dl Direct Bilirubin 0.00mg/dl Indirect Bilirubin 0.7mg/dl Aspartate Amino Transf (AST/SGOT) 34IU/L Alanine Aminotransferase (ALT/SGPT) 29IU/L Alkaline Phosphatase 88IU/L Troponin I 0.082ng/ml Total Protein 7.8g/dl Albumin 4.4g/dl Globulin 3.40g/dl Albumin/Globulin Ratio 1.29 Blood Gas Specimen Source Blood arterial Arterial Blood Date Drawn 07/08/2016 2:03:20 AM Arterial Blood pH (Temp corrected) 7.390 Arterial Blood pCO2 (Temp correct) 40.6mmhg Arterial Blood pO2 (Temp corrected) 399.0mmHG Arterial Blood HCO3 24.0mmol/L Arterial Blood Base Excess -0.8mmol/L Arterial Blood Oxygen Saturation 99.5mmHG Aaron Test ACCEPTAB Arterial Blood Gas Puncture Site Right Radial Arterial Blood Carboxyhemoglobin 0.3% Arterial Blood Methemoglobin 0.4% Blood Gas A-a O2 Differential 273.4mmHg Oxyhemoglobin Percent 98.8% Total Hemoglobin 13.4g/dl Blood Gas Temperature 37.0C Blood Gas Respiration Rate 20.0 Blood Gas Actual Respiration Rate 21 Blood Gas Modality MASK - BIPAP FiO2 100.0% Blood Gas IPAP/EPAP Ratio 15/5 Blood Gas Notified Whom MG Blood Gas Notified Time 07/08/2016 2:07:52 AM Bedside Urine pH (LAB) 5.5 Bedside Urine Protein (LAB) Trace Bedside Urine Glucose (UA) Negative Bedside Urine Ketones (LAB) Negative Bedside Urine Blood Negative Bedside Urine Nitrite (LAB) Negative Bedside Urine Leukocyte Esterase (L Negative Urine Color LT. YELLOW Urine Clarity CLEAR Urine pH 6.0 Urine Specific [place] 1.015 Urine Ketones NEGATIVE Urine Nitrite NEGATIVE Urine Bilirubin NEGATIVE Urine Urobilinogen 0.2 E.U./dL Urine Leukocyte Esterase NEGATIVE Urine Hemoglobin NEGATIVE Urine Glucose NEGATIVE% Urine Total Protein NEGATIVE EKG: Interpreted by mt Sinus Tachycardia at 106 with both RBBB and LBBB and 1st degree A-V Block PROCEDURE: XR Chest. CLINICAL INDICATION: Sepsis. TECHNIQUE: Single frontal chest x-ray. COMPARISON: 05/22/2016 FINDINGS: The patient status post sternotomy. Left subclavian biventricular pacemaker is unchanged.. The heart is enlarged.. There is redemonstrated 4.8 x 3.3 cm right suprahilar mass-like density although slightly less prominent. There is mild pulmonary vascular congestion.. There is no pleural effusion. There is no pneumothorax. The osseous structures are unremarkable. IMPRESSION: Cardiomegaly. Mild pulmonary vascular congestion. Redemonstrated right suprahilar density suspicious for a mass, slightly less prominent. Recommend correlation with contrast enhanced CT of the chest when clinically appropriate. DAMI AVILA DO Jul 08, 2016 05:42
[2016-07-08] MEDS ORDERED: SOD CHLORIDE 0.9% 1,000 ML IV SCH (05:46)
[2016-07-08] MEDS ORDERED: HYDROCODONE/APAP (5/325) TAB PO PRN ×2 (06:00)
[2016-07-08] MEDS ORDERED: NITROGLYCERIN (SL) 0.4 MG TAB SL PRN (06:00)
[2016-07-08] MEDS ORDERED: LEVALBUTEROL (NEB) 1.25 MG/0.5 ML AMP HHN PRN (06:00)
[2016-07-08] MEDS ORDERED: METOCLOPRAMIDE 10 MG INJ IV PRN (06:00)
[2016-07-08] MEDS ORDERED: ACETAMINOPHEN 325 MG TAB PO PRN (06:00)
[2016-07-08] MEDS ORDERED: FUROSEMIDE 20 MG TAB PO SCH (06:00)
[2016-07-08] MEDS ORDERED: NACL 0.9% 3 ML SYG IV SCH (06:00)
[2016-07-08] MEDS ORDERED: ZOLPIDEM 5 MG TAB PO PRN (06:00)
[2016-07-08] MEDS ORDERED: VANCOMYCIN IV PER PHARMACY XX SCH (07:00)
[2016-07-08] MEDS ORDERED: PIPER-TAZO 2.25 GM (PMX) 50 ML IVPB SCH (07:00)
[2016-07-08] MEDS ORDERED: AMIODARONE 200 MG TAB PO SCH (09:00)
[2016-07-08] MEDS ORDERED: VANCOMYCIN 750 MG in SOD CHLORIDE 0.9% 150 ML IVPB SCH (09:00)
[2016-07-08] MEDS ORDERED: FAMOTIDINE 20 MG TAB PO SCH (09:00)
[2016-07-08] MEDS ORDERED: GLUCOSE GEL 15 GRAM TUBE BUCCAL PRN (09:00)
[2016-07-08] MEDS ORDERED: GLUCOSE GEL 15 GRAM TUBE PO PRN ×2 (09:00)
[2016-07-08] MEDS ORDERED: GLUCAGON 1 MG INJ IM PRN (09:00)
[2016-07-08] MEDS ORDERED: DEXTROSE 50% 50 ML SYRINGE IV PRN ×2 (09:00)
[2016-07-08] MEDS ORDERED: LISINOPRIL 10 MG TAB PO SCH (09:00)
[2016-07-08] MEDS ORDERED: ASPIRIN 81 MG TAB PO SCH (09:00)
[2016-07-08] MEDS ORDERED: EZETIMIBE 10 MG TAB PO SCH (09:00)
[2016-07-08] MEDS ORDERED: ENOXAPARIN 30 MG/0.3 ML SYG SC SCH (09:00)
[2016-07-08] MEDS: LEVALBUTEROL (NEB) 1.25 MG/0.5 ML AMP HHN SCH ×2 (09:30→13:00)
[2016-07-08] MEDS: IPRATROPIUM (NEB) 0.5 MG/2.5 ML AMP HHN SCH ×2 (09:31→13:00)
[2016-07-08] MEDS ORDERED: ISOSORBIDE DINITRATE 10 MG TAB PO SCH (10:00)
--- NOTE | 2016-07-08 10:15 | CONS ---
Date/Time of Note Date/Time of Note DATE: 07/08/16 TIME: 10:04 Assessment/Plan Assessment/Plan Chief Complaint/Hosp Course Respiratory distress/SOB: I believe this is due to his elevated BP as he has presented this way previously and he had a recent medication change. He is now back to baseline with improved BP. I am not sure he has an underlying infectious process but he did have leukocytosis and lactic acidosis and so I will defer antibiotic management to his primary team. Hyperkalemia: Likely from recent change to cozaar. No hyperkalemia on lisinopril. His most recent Cr as outpt was 2.8 so he does not have acute renal failure. CAD s/p CABG and PCI: no e/o ischemia Chronic systolic heart failure/ICM: EF 20%. Appears compensated at this time s/p ICD CKD HTN: BP better now. Ideally could try isordil/hydralazine combo instead of ACEI/ ARB but pt wray not want TID dosing -check stat labs and if K is ok, can be discharged home -will restart lisinopril 5mg daily (uptitrate to 10mg if BP remains high) assuming K is back to normal -f/u this week with me with labs prior -continue ASA, plavix, statin -coreg -continue lasix 20mg PO BID Problems: Consultation Date/Type/Reason Admit Date/Time 07/08/16 0312 Date of Consultation: Jul 08, 2016 Type of Consultation: Cardiology Reason for Consultation SOB Referring Provider: SANJUANITA SPAULDING Hx of Present Illness 65 yo M very well known to me with a history of CAD s/p CABG and PCI to LAD, ICM (EF ~20%), S/p ICD for secondary prevention, CKD (Cr ~2.5), HTN, HL, who presented with sudden onset SOB. The pt was treated for possible sepsis/PNA. Of note I had recently changed his lisinopril to losartan due to cough and he is very sensitive to medication changes. His prior admissions were also in the setting of HTN. He currently denies any symptoms and is anxious to leave. He does not want to try any other BP/cardiomyopathy med besides the lisinopril. per HPI Past Surgical History Past Surgical Hx: coronary bypass surgery, other Social History Alcohol Use: rarely Smoking Status: Former smoker Drug Use: none Exam/Review of Systems Vital Signs Vitals Vital Signs Date Time Temp Pulse Resp B/P Pulse Ox O2 Delivery O2 Flow Rate FiO2 07/08/16 09:30 73 18 91 Nasal Cannula 2.0 07/08/16 07:23 97.9 135/78 07/08/16 02:00 100 Exam Constitutional: alert, oriented Psych: no complaints Head: normocephalic Neck: No jvd Respiratory: clear to auscultation, No crackles/rales Cardiovascular: regular rate and rhythm, No edema, No systolic murmur Gastrointestinal: non-tender, soft Neurological: nl mental status, nl speech Results Result Diagram: 07/08/161 07/08/16 0051 Results 24 hrs Laboratory Tests Test 07/08/16 00:51 07/08/16 02:00 07/08/16 02:44 07/08/16 02:45 White Blood Count 17.8 #H Red Blood Count 4.69 L Hemoglobin 13.1 L Hematocrit 43.9 # Mean Corpuscular Volume 93.6 Mean Corpuscular Hemoglobin 27.9 L Mean Corpuscular Hemoglobin Concent 29.8 L Red Cell Distribution Width 14.1 Platelet Count 671 H Mean Platelet Volume 11.6 H Neutrophils % 57.0 Lymphocytes % 29.4 Monocytes % 8.0 Eosinophils % 3.6 Basophils % 0.7 Nucleated Red Blood Cells % 0.0 Neutrophils # 10.2 H Lymphocytes # 5.2 H Monocytes # 1.4 H Eosinophils # 0.6 H Basophils # 0.1 Nucleated Red Blood Cells # 0.0 Prothrombin Time 14.0 Prothrombin Time Ratio 1.1 INR International Normalized Ratio 1.08 Activated Partial Thromboplast Time 29.2 Sodium Level 138 Potassium Level 5.6 H Chloride Level 102 Carbon Dioxide Level 24 Anion Gap 18 H Blood Urea Nitrogen 39 H Creatinine 2.70 H Glucose Level 275 H Lactic Acid Level 3.1 H Calcium Level 8.9 Total Bilirubin 0.7 Direct Bilirubin 0.00 Indirect Bilirubin 0.7 Aspartate Amino Transf (AST/SGOT) 34 Alanine Aminotransferase (ALT/SGPT) 29 Alkaline Phosphatase 88 Troponin I 0.082 Total Protein 7.8 Albumin 4.4 Globulin 3.40 H Albumin/Globulin Ratio 1.29 Blood Gas Specimen Source Blood arterial Arterial Blood Date Drawn 07/08/2016 2:03:20 AM Arterial Blood pH (Temp corrected) 7.390 Arterial Blood pCO2 (Temp correct) 40.6 Arterial Blood pO2 (Temp corrected) 399.0 H Arterial Blood HCO3 24.0 Arterial Blood Base Excess -0.8 Arterial Blood Oxygen Saturation 99.5 H Aaron Test ACCEPTAB Arterial Blood Gas Puncture Site Right Radial Arterial Blood Carboxyhemoglobin 0.3 Arterial Blood Methemoglobin 0.4 Blood Gas A-a O2 Differential 273.4 H Oxyhemoglobin Percent 98.8 Total Hemoglobin 13.4 Blood Gas Temperature 37.0 Blood Gas Respiration Rate 20.0 Blood Gas Actual Respiration Rate 21 Blood Gas Modality MASK - BIPAP FiO2 100.0 Blood Gas IPAP/EPAP Ratio 15/5 Blood Gas Notified Whom MG Blood Gas Notified Time 07/08/2016 2:07:52 AM Bedside Urine pH (LAB) 5.5 Bedside Urine Protein (LAB) Trace H Bedside Urine Glucose (UA) Negative Bedside Urine Ketones (LAB) Negative Bedside Urine Blood Negative Bedside Urine Nitrite (LAB) Negative Bedside Urine Leukocyte Esterase (L Negative Urine Color LT. YELLOW Urine Clarity CLEAR Urine pH 6.0 Urine Specific [place] 1.015 Urine Ketones NEGATIVE Urine Nitrite NEGATIVE Urine Bilirubin NEGATIVE Urine Urobilinogen 0.2 E.U./dL Urine Leukocyte Esterase NEGATIVE Urine Hemoglobin NEGATIVE Urine Glucose NEGATIVE Urine Total Protein NEGATIVE Test 07/08/16 05:33 Lactic Acid Level 0.8 Medications Medications Current Medications Metoclopramide HCl (Reglan) 10 mg Q6H PRN IV NAUSEA AND/OR VOMITING; Start 07/08 at 06:00 Nitroglycerin (Nitroglycerin (Sl Tab) 0.4 Mg) 1 tab Q5M PRN SL CHEST PAIN; Start 07/08/16 at 06:00 Acetaminophen (Tylenol Tab) 650 mg Q6H PRN PO PAIN LEVEL 1-3 OR FEVER; Start at 06:00 Acetaminophen/ Hydrocodone Bitart ([place] (5/325)) 1 tab Q6H PRN PO PAIN LEVEL 4 -6; Start 07/08/16 at 06:00 Acetaminophen/ Hydrocodone Bitart ([place] (5/325)) 2 tab Q6H PRN PO PAIN LEVEL 7 -10; Start 07/08/16 at 06:00 Famotidine (Pepcid) 20 mg DAILY PO ; Start 07/08/16 at 09:00 Enoxaparin Sodium (Lovenox) 30 mg DAILY SC ; Start 07/08/16 at 09:00 Amiodarone HCl (Cordarone) 100 mg DAILY PO ; Start 07/08/16 at 09:00 Aspirin (Aspirin) 81 mg DAILY PO ; Start 07/08/16 at 09:00 Atorvastatin Calcium (Lipitor) 80 mg QHS PO ; Start 07/08/16 at 21:00 Carvedilol (Coreg) 12.5 mg BID PO ; Start 07/08/16 at 09:00 EZETIMIBE (Zetia) 10 mg DAILY PO ; Start 07/08/16 at 09:00 Zolpidem Tartrate 10 mg 10 mg QHS PRN PO INSOMNIA; Start 07/08/16 at 06:00 Piperacillin Sod/ Tazobactam Sod 50 ml @ 100 mls/hr Q8 IVPB ; Start 07/08/16 at 07:00 Vancomycin HCl 750 mg/Sodium Chloride 150 ml @ 75 mls/hr ONCE IVPB ; Start 07/08 at 09:00; Stop 07/08/16 at 13:00 Vancomycin HCl/ Sodium Chloride (Vancocin/NS) 250 ml @ 83.333 mls/ hr Q48H IVPB ; Start 07/10/16 at 10:00 Diagnostic Test (Pha) (Accu-Chek) 1 ea 02 XX ; Start 07/09/16 at 02:00 Miscellaneous Information 1 ea NOTE XX ; Start 07/08/16 at 09:00 Glucose (Glutose) 15 gm Q15M PRN PO DECREASED GLUCOSE; Start 07/08/16 at 09:00 Glucose (Glutose) 22.5 gm Q15M PRN PO DECREASED GLUCOSE; Start 07/08/16 at 09:00 Dextrose (D50w Syringe) 25 ml Q15M PRN IV DECREASED GLUCOSE; Start 07/08/16 at 09:00 Dextrose (D50w Syringe) 50 ml Q15M PRN IV DECREASED GLUCOSE; Start 07/08/16 at 09:00 Glucagon (Glucagen) 1 mg Q15M PRN IM DECREASED GLUCOSE; Start 07/08/16 at 09:00 Glucose (Glutose) 15 gm Q15M PRN BUCCAL DECREASED GLUCOSE; Start 07/08/16 at 09: 00 Isosorbide Dinitrate (Isordil) 10 mg TID PO ; Start 4/8/17 at 10:00 Hydralazine HCl (Apresoline) 25 mg TID PO ; Start 07/08/16 at 10:00 EMILY TREVIÑO Jul 08, 2016 10:15
[2016-07-08 11:09] LABS: CALCIUM 9.2 mg/dl (8.4-10.2); CREATININE 2.32 mg/dl (0.61-1.24); POTASSIUM 4.6 mmol/L (3.5-5.1)
[2016-07-08 11:21] LABS: TROPONIN-I 0.091 ng/ml (0.00-0.12)
[2016-07-08] MEDS ORDERED: AMOX1TAB10 PO ×2 (11:37→11:42)
[2016-07-08] MEDS ORDERED: LISI10TA2 PO (11:37)
--- NOTE | 2016-07-08 11:39 | PDOCDIS ---
Discharge Instructions DIAGNOSIS Discharge Diagnosis: Hypertensive urgency CONDITION Patient Condition: Stable HOME CARE INSTRUCTIONS: Diet Instructions: Low Fat /Cholesterol FOLLOW UP/APPOINTMENTS Appointments f/u with Dr Zavala next week for repeat labs. SANJUANITA SPAULDING Jul 08, 2016 11:39
[2016-07-08] MEDS ORDERED: IPRA4AER INHALATION (11:41)
[2016-07-08 11:45] LABS: CK-MB 3.4 ng/ml (0.0-2.4)
[2016-07-08] MEDS ORDERED: INSULIN ASPART [NOVOLOG] 3 ML PEN SC SCH (11:50)
--- NOTE | 2016-07-08 17:50 | DS ---
DATE OF ADMISSION: 07/08/2016 DATE OF DISCHARGE: 07/08/2016 FINAL DIAGNOSES: 1. Severe sepsis with lactic acidosis, source is not quite clear, but I have a strong suspicion for an obstructive pneumonia. 2. Right hilar density concerning for mass for which patient has refused any intervention. 3. Chronic kidney disease. 4. Acute respiratory distress and shortness of breath which could be secondary to pneumonia versus elevated blood pressure. 5. Coronary artery disease, status post CABG and PCI. 6. Hyperkalemia, thought to be secondary to new antihypertensive regimen ( losartan). 7. Chronic systolic heart failure with last known ejection fraction of 28% for which the patient appears compensated at this time. 8. Status post implantable cardioverter defibrillator for secondary prevention. 9. Former smoker. CONSULTS ON THE CASE: Dr. Nguyễn Zavala and I had also requested a pulmonary consult; however, the patient did refuse this. INTERVENTIONS: The patient had a chest x-ray that showed cardiomegaly with some mild pulmonary vascular congestion and right suprahilar density suspicious for a mass for which CT was recommended, but the patient refused. A very short hospitalization. HOSPITAL COURSE: This patient was in the hospital only for about less than 24 hours. He had come in, brought in by ambulance with respiratory distress, shortness of breath and was seen in the ER, but immediately stabilized with BiPAP therapy, bronchodilator therapy, and he was given intravenous fluids for sepsis. He did well and as soon as he was feeling better, he requested to be discharged. The patient was seen by Dr. Zavala, but he needed to be admitted, so he was admitted but the minute I walked in the room as well he asked me to be discharged. I convinced him to wait to speak with the gasket former, Dr. Zavala which he did. Dr. Zavala reviewed with the patient and reported that he knew him for quite a while as an outpatient and thought that his symptoms might be due to elevated blood pressure. He did state that he was comfortable with discharging the patient home. The patient will follow up with him in the clinic next week for continued labs and continued followup. The patient did endorse that he did not want any further testing for his lung mass and strongly desired to be discharged. Based on that , we are discharging him home. He is in stable condition and he will follow up with Dr. Zavala next week for continued management and his lactic acid has normalized as well. DISCHARGE MEDICATIONS: 1. He was given Combivent inhalation every 4 hours as needed for shortness of breath. 2. Augmentin 875 for 10 days for probable obstructive pneumonia. He is continued on his home: 1. Amiodarone. 2. Aspirin. 3. Lipitor. 4. Coreg. 5. Zetia. 6. Lasix 20 b.i.d. 7. Zolpidem. 8. His Lisinopril was reduced from 10 to 5 mg. Of note is that the patient desired creatinine is in the 2's and so he was determined not to be in acute renal failure. Time spent on discharge planning has been so far about 45 minutes. For further information and clarification, please review the patient's chart and my orders. Dictated By: SANJUANITA SPAULDING MD, BA/LUIS Conf#: [id number] DID#: [id number]
[2016-07-08] MEDS ORDERED: ATORVASTATIN 80 MG TAB PO SCH (21:00)
[2016-07-09] MEDS ORDERED: ACCU-CHEK XX SCH (02:00)
[2016-07-10] MEDS ORDERED: VANCOMYCIN 1.5 GM in SOD CHLORIDE 0.9% 250 ML IVPB SCH (10:00)
== END 2016-07-08 12:30 | disposition left against medical advice (07) | DRG 871 ==
LOC: E/R 00:34 → TEL 03:14
PROVIDERS: ADMIT Family Medicine; ATTEND Family Medicine
DX: A41.9 Sepsis, unspecified organism (principal); J96.00 Acute respiratory failure, unspecified whether with hypoxia or hypercapnia; E87.2 Acidosis; I50.22 Chronic systolic (congestive) heart failure; R65.20 Severe sepsis without septic shock; N18.9 Chronic kidney disease, unspecified; I25.10 Atherosclerotic heart disease of native coronary artery without angina pectoris; E87.5 Hyperkalemia; Z95.810 Presence of automatic (implantable) cardiac defibrillator; Z87.891 Personal history of nicotine dependence; R91.8 Other nonspecific abnormal finding of lung field; Z95.1 Presence of aortocoronary bypass graft; Z79.82 Long term (current) use of aspirin; I25.2 Old myocardial infarction; D64.9 Anemia, unspecified
CPT/HCPCS: 36415; 36600; 71010; 80048; 80053; 81003; 82550; 82553; 82803; 83605; 84484; 85025; 85610; 85730; 87040; 87086; 93005; 94644; 94660; 94664; 96374; 96375; J1650; J1815; J2543; J3370; J7030

== ENCOUNTER 2016-07-20 23:16 | Inpatient (IN) | payer MEDICARE, OTHER ==
[~2016-07-20] VITALS: Ht 172.7 cm; Wt 78.6 kg
[~2016-07-20 23:16] MED LIST changes: +AMOX1TAB10 PO; +IPRA4AER INHALATION
--- NOTE | 2016-07-20 23:23 | ERA ---
ER Documentation Chief Complaint Date/Time DATE: 07/20/16 TIME: 23:22 Chief Complaint HPI The patient is a 65-year-old male, presenting to the ER because of shortness of breath today, worse for the last 2 hours. He has similar symptoms previously. The history is mostly obtained from the residential direct support professional and his son. He denies any fever, neck pain, chest pain, complaints of cough for the last couple days. He denies abdominal pain, vomiting, dysuria, diarrhea. He used to smoke. Past medical history: CAD, history of non-STEMI, dyslipidemia, history of CHF, ischemic cardiomyopathy 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%, chronic kidney disease, anxiety Past surgical history: Pacemaker, CABG ROS All systems reviewed and are negative except as per history of present illness. Medications Home Meds Active Scripts Amoxicillin/Potassium Clav (Amox-Clav 875-125 mg Tablet) 875-125 mg Tab, 1 TAB PO BID, #20 TAB Prov:SANJUANITA SPAULDING. 07/08/16 Albuterol/Ipratropium* (Combivent Respimat*) 20-100 Mcg/Inh - 4 Gm Aer.w.adap, 1 PUFF INHALATION QID, #1 INHALER 1 Refill Prov:SANJUANITA SPAULDING . 07/08/16 Lisinopril* (Lisinopril*) 10 Mg Tablet, 5 MG PO DAILY for 30 Days, TAB Prov:SANJUANITA SPAULDING. 07/08/16 Furosemide (Lasix) 20 Mg Tab, 20 MG PO BID@06,18 for 30 Days, TAB Prov:NEGRITO KOTHARI NP 05/23/16 Carvedilol* (Carvedilol*) 12.5 Mg Tablet, 12.5 MG PO BID, #60 TAB Prov:GIA WILDER MD 03/07/16 Aspirin* (Aspirin* Chew) 81 Mg Tab.chew, 81 MG PO DAILY, #30 TAB.CHEW Prov:GIA WILDER MD 03/07/16 Atorvastatin* (Atorvastatin*) 80 Mg Tablet, 80 MG PO QHS, #30 TAB Prov:GIA WILDER MD 03/07/16 Reported Medications Ezetimibe* (Zetia*) 10 Mg Tablet, 10 MG PO DAILY, TAB 05/21/16 Amiodarone Hcl* (Amiodarone Hcl*) 100 Mg Tablet, 100 MG PO DAILY, #30 TAB 05/21/16 Zolpidem Tartrate* (Zolpidem Tartrate*) 10 Mg Tablet, 10 MG PO QHS Y for INSOMNIA, #30 TAB 01/25/16 Allergies Allergies: Coded Allergies: No Known Allergy (Unverified , 05/20/16) PMhx/Soc History of Surgery: Yes (CABG ) Anesthesia Reaction: No Hx Neurological Disorder: No Hx Respiratory Disorders: No Hx Cardiac Disorders: Yes (CAD, CHF, Hyperlipidemia, Cardiomyopathy ) Hx Psychiatric Problems: No Hx Miscellaneous Medical Probl: No Hx Alcohol Use: No Hx Substance Use: No Hx Tobacco Use: No Physical Exam Vitals Vital Signs Date Time Temp Pulse Resp B/P Pulse Ox O2 Delivery O2 Flow Rate FiO2 07/21/16 01:59 72 97 50 07/21/16 01:45 75 16 98/62 98 Nasal Cannula 3.0 07/21/16 01:30 72 15 98/62 97 BIPAP 07/21/16 01:20 78 20 77/51 97 BIPAP 07/21/16 01:10 74 100 40 07/21/16 00:59 80 20 83/55 100 BIPAP 07/20/16 23:40 106 28 97 100 07/20/16 23:39 105 25 169/103 95 07/20/16 23:24 97.0 112 23 185/120 71 07/20/16 23:20 110 88 100 Physical Exam Const: Moderate respiratory distress. Head: Atraumatic. Eyes: Normal Conjunctiva. ENT: Normal External Ears, Nose and Mouth. Neck: Full range of motion. No meningismus. Resp: Bilateral crackles and expiratory wheezes, tachypneic Cardio: Regular tachycardic Abd: Soft, non distended, normal bowel sounds, non tender. Skin: No petechiae or rashes. Back: No midline or flank tenderness. Ext: No cyanosis, or edema. Neur: Awake and alert. No focal deficit Psych: Normal Mood and Affect. Result Diagram: 07/20/16 4030 07/20/16 2330 Results 24 hrs Laboratory Tests Test 07/20/16 23:26 07/20/16 23:30 07/21/16 01:30 Blood Gas Specimen Source Blood arterial Arterial Blood Date Drawn 07/21/2016 12:55:50 AM Arterial Blood pH (Temp corrected) 7.328 Arterial Blood pCO2 (Temp correct) 37.9mmhg Arterial Blood pO2 (Temp corrected) 293.7mmHG Arterial Blood HCO3 19.4mmol/L Arterial Blood Base Excess -5.9mmol/L Arterial Blood Oxygen Saturation 99.4mmHG Aaron Test N/A Arterial Blood Gas Puncture Site Right Brachial Arterial Blood Carboxyhemoglobin 0.3% Arterial Blood Methemoglobin 0.3% Blood Gas A-a O2 Differential 381.4mmHg Oxyhemoglobin Percent 98.8% Total Hemoglobin 15.0g/dl Blood Gas Temperature 37.0C Blood Gas Respiration Rate 20.0 Blood Gas Actual Respiration Rate 24 Blood Gas Modality MASK - BIPAP FiO2 100.0% Blood Gas IPAP/EPAP Ratio 15/5 Blood Gas Notified Whom MG Blood Gas Notified Time 07/21/2016 1:02:34 AM White Blood Count 23.710^3/ul Red Blood Count 5.5110^6/ul Hemoglobin 15.9g/dl Hematocrit 52.9% Mean Corpuscular Volume 96.0fl Mean Corpuscular Hemoglobin 28.9pg Mean Corpuscular Hemoglobin Concent 30.1g/dl Red Cell Distribution Width 13.5% Platelet Count 45019^3/UL Mean Platelet Volume 11.6fl Neutrophils % % Lymphocytes % % Monocytes % % Neutrophils # 10^3/ul Lymphocytes # 10^3/ul Monocytes # 10^3/ul Prothrombin Time 13.0Sec Prothrombin Time Ratio 1.0 INR International Normalized Ratio 0.98 Activated Partial Thromboplast Time 35.1Sec Sodium Level 140mmol/L Potassium Level 5.2mmol/L Chloride Level 110mmol/L Carbon Dioxide Level 19mmol/L Anion Gap 16 Blood Urea Nitrogen 36mg/dl Creatinine 2.49mg/dl Glucose Level 216mg/dl Lactic Acid Level 2.5mmol/L 1.8mmol/L Calcium Level 8.9mg/dl Total Bilirubin 0.4mg/dl Direct Bilirubin 0.00mg/dl Indirect Bilirubin 0.4mg/dl Aspartate Amino Transf (AST/SGOT) 28IU/L Alanine Aminotransferase (ALT/SGPT) 24IU/L Alkaline Phosphatase 81IU/L Troponin I 0.071ng/ml Total Protein 7.2g/dl Albumin 4.1g/dl Globulin 3.10g/dl Albumin/Globulin Ratio 1.32 Current Medications Medications (Trade) Dose Ordered Sig/Deanna Route PRN Reason Start Time Stop Time Status Last Admin Dose Admin Levalbuterol (Xopenex Neb) 3.75 mg ONCE STAT INH 07/20/16 23:26 07/20/16 23:29 DC 07/20/16 23:38 Ipratropium [place] 1.5 mg 1.5 mg ONCE STAT INH 07/20/16 23:26 07/20/16 23:29 DC 07/20/16 23:38 Vancomycin HCl 250 ml @ 125 mls/hr ONCE IVPB 07/21/16 01:30 07/21/16 03:29 07/21/16 01:42 Piperacillin Sod/ Tazobactam Sod 50 ml @ 100 mls/hr ONCE ONCE IVPB 07/21/16 01:30 07/21/16 01:59 DC 07/21/16 01:42 Albumin Human 250 ml @ 250 mls/hr Q1H IV 07/21/16 01:30 07/21/16 03:29 07/21/16 01:42 Metoclopramide HCl (Reglan) 10 mg Q6H PRN IV NAUSEA AND/OR VOMITING 07/21/16 02:00 Albuterol/ Ipratropium (Duoneb) 3 ml Q4H RESP THERAPY NEB 07/21/16 05:00 Nitroglycerin (Nitroglycerin (Sl Tab) 0.4 Mg) 1 tab Q5M PRN SL CHEST PAIN 07/21/16 02:00 Acetaminophen (Tylenol Liquid) 650 mg Q6H PRN PO PAIN LEVEL 1-3 OR FEVER 07/21/16 02:00 Oxycodone/ Acetaminophen (Percocet (5/ 325)) 1 tab Q6H PRN PO PAIN LEVEL 4-6 07/21/16 02:00 Morphine Sulfate (morphine) 2 mg Q4H PRN IV PAIN LEVEL 7-10 07/21/16 02:00 Lorazepam (Ativan) 0.5 mg Q6 PRN IV ANXIETY 07/21/16 02:00 Famotidine (Pepcid) 20 mg DAILY PO 07/21/16 09:00 Heparin Sodium (Porcine) 5000 unit 5,000 unit Q12 SC 07/21/16 09:00 Sodium Chloride 1,000 ml @ 1,000 mls/hr Q1H IV 07/21/16 01:34 07/21/16 03:33 Dobutamine HCl/ Dextrose 250 ml @ 11.25 mls/ hr TITRATE IV 07/21/16 02:00 Cefepime HCl (Maxipime 2gm/50 ml (Pmx)) 50 ml @ 100 mls/hr Q8 IVPB 07/21/16 06:00 Vancomycin HCl (Vanco Iv Per Pharmacy) 1 ea Per Rx Protocol XX 07/21/16 02:00 Amiodarone HCl (Cordarone) 100 mg DAILY PO 07/21/16 09:00 UNV Aspirin (Aspirin) 81 mg DAILY PO 07/21/16 09:00 Atorvastatin Calcium (Lipitor) 80 mg QHS PO 07/21/16 21:00 UNV Carvedilol (Coreg) 12.5 mg BID PO 07/21/16 09:00 UNV EZETIMIBE (Zetia) 10 mg DAILY PO 07/21/16 09:00 UNV Lisinopril (Zestril) 5 mg DAILY PO 07/21/16 09:00 UNV Zolpidem Tartrate 5 mg 5 mg HS MAY REPEAT X 1 PRN PO INSOMNIA 07/21/16 02:00 Vancomycin HCl (Vancocin) 100 ml @ 100 mls/hr ONCE ONCE IVPB 07/21/16 04:00 07/21/16 04:59 Procedures/[place] [id number] Radiology Main Line: [phone] DIAGNOSTIC IMAGING REPORT Patient: JUANIS PA : 1950 Age: 65 Sex: M MR #: [id number] DOS: 07/20/16 2326 Ordering MD: KEYA BLANCO MD Location: E/R Room/Bed: PROCEDURE: XR Chest. CLINICAL INDICATION: Possible sepsis TECHNIQUE: AP Portable chest. COMPARISON: 05/22/2016 FINDINGS: There is mild to moderate cardiomegaly. There is moderate pulmonary vascular congestion and interstitial edema new compared to the prior. Prior median sternotomy is again noted. A left chest cardiac device and leads are unchanged. IMPRESSION: Moderate pulmonary vascular congestion and interstitial edema. RPTAT: HIKT .Saad Almaraz MD, Date Time Electronically viewed and signed by .Saad Almaraz MD, on 07/21/2016 00:37 .T/ CC: KEYA BLANCO MD EKG: Read by emergency physician at 2326 hrs. Rate/Rhythm: Sinus tachycardia at 111 beats/min QRS, ST, T-waves: No ST elevation, no T inversion, LAD, left bundle branch block Impression: Abnormal EKG EKG: Read by emergency physician at 12:07 AM Rate/Rhythm: Normal Sinus Rhythm 88 beats/min QRS, ST, T-waves: No ST elevation, no T inversion, LAD, left bundle branch block Impression: Abnormal EKG MEDICAL MAKING DECISION: The patient is a 65-year-old male, presenting with acute respiratory failure, acute CHF, acute septic shock. He was immediately treated with BiPAP and he was able to tolerate BiPAP well, Xopenex 3.75 mg and Atrovent 1.5 milligrams over one hour with good response. He was treated with vancomycin IV, Zosyn IV and albumin 500 mL IV for acute severe sepsis, associated with hypotension The differential diagnoses considered include but are not limited to pneumonia, cystitis, pyelonephritis, The differential diagnoses considered include but are not limited to asthma, COPD, pneumonia, pulmonary embolus, pleural effusion, congestive heart failure. Admit MDM: Patient's infectious symptoms have not stabilized and the patient is at risk of rapid decompensation. The patient will be admitted for careful hydration, antibiotic therapy, and infectious source control. Severe Sepsis criteria: Infectious source: Unknown End organ damage indicated by: Lactate > 2.0 mmol/L Hypotension (SBP < 90 or >40 mmHG drop or MAP < 65) Acute Resp Failure (sat < 92% w/o oxygen) Certified Genetic Counselor > 2.0 Sepsis Management: Time of recognition of severe sepsis/septic shock:11:40 PM Within 3 hours of recognition: Blood cultures x 2 before broad-spectrum antibiotics: Yes 30 ml/kg NS bolus no completed because he has acute CHF, history of chronic kidney disease, cardiomyopathy 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% Initial lactate 2.5 Repeat lactate pending Critical Care: Critical care time 35 minutes Emergent fluid management while maintaining close respiratory support. Provision of immediate and broad-spectrum antibiotic therapy. Simultaneous assessment for possible sources in order to direct targeted therapy. Consideration for invasive and chemical support to prevent cardiopulmonary collapse. Septic Shock Assessment: Any lactic acid > 4.0 no Persistent hypotension (SBP < 90 or 40 mmHg drop, MAP < 65) despite 30 mL/kg IV fluid bolusyes Volume Re-assessment for Septic Shock (post 30 ml/kg bolus): Temp97, BP98/62, HR98, RR16, Pox98% on BiPap Heart regular rate & rhythm Lungs no crackles Skin Warm & dry & pink Cap Refill less than 2 seconds Peripheral pulses radially present Persistent Hypotension Treatment: Comfort care no Central line not indicated Vasopressor started not indicated I considered further perfusion assessment with CVP measurement, SCVO2, bedside ultrasound volume assessment, passive leg raise, trial of further fluid bolus. And proceeded with albumin IV Departure Diagnosis: Primary Impression: Acute respiratory failure Additional Impressions: Septic shock CHF (congestive heart failure) Condition: Critical Comments I discussed the findings with the patient. I discussed the patient with the on- call hospitalist Dr. Ruiz who was made aware of the lab, the treatment, the patient condition. The patient is admitted to ICU at 1:20 AM KEYA BLANCO MD Jul 20, 2016 23:23
[2016-07-20 23:24] VITALS: Ht 172.7 cm; Wt 78.6 kg
[2016-07-20] MEDS ORDERED: LEVALBUTEROL (NEB) 1.25 MG/0.5 ML AMP INH STA (23:26)
[2016-07-20] MEDS ORDERED: IPRATROPIUM (NEB) 0.5 MG/2.5 ML AMP INH STA (23:26)
[2016-07-20 23:54] LABS: ADD SCAN DIFF NO
[2016-07-20 23:59] LABS: ABNORMAL IP MESSAGE 1; HEMATOCRIT 52.9 % (42.0-52.0); HEMOGLOBIN 15.9 g/dl (14.0-18.0); MEAN CORPUSCULAR HEMOGLOBIN 28.9 pg (29.0-33.0); MEAN CORPUSCULAR HGB CONC 30.1 g/dl (32.0-37.0); MEAN PLATELET VOLUME 11.6 fl (7.4-10.4); PLATELET COUNT 905 10^3/UL (140-415); RED BLOOD COUNT 5.51 10^6/ul (4.70-6.10); RED CELL DISTRIBUTION WIDTH 13.5 % (11.5-14.5); WHITE BLOOD COUNT 23.7 10^3/ul (4.8-10.8)
[2016-07-21] VITALS (8 sets, daily range): BP systolic 134–152; BP diastolic 61–72; PULSE 69–74; RESP 20; TEMP 97.3
[2016-07-21 00:12] LABS: ALBUMIN 4.1 g/dl (3.3-4.9); ALBUMIN/GLOBULIN RATIO 1.32; BILIRUBIN,INDIRECT 0.4 mg/dl (0-1.1); BILIRUBIN,TOTAL 0.4 mg/dl (0.2-1.3); CALCIUM 8.9 mg/dl (8.4-10.2); CREATININE 2.49 mg/dl (0.61-1.24); POTASSIUM 5.2 mmol/L (3.5-5.1); TOTAL PROTEIN 7.2 g/dl (6.1-8.1)
[2016-07-21 00:22] LABS: TROPONIN-I 0.071 ng/ml (0.00-0.12)
[2016-07-21 00:28] LABS: INR 0.98; PARTIAL THROMBOPLASTIN TIME 35.1 Sec (25.0-35.0)
--- NOTE | 2016-07-21 00:38 | RADRPT ---
PROCEDURE: XR Chest. CLINICAL INDICATION: Possible sepsis TECHNIQUE: AP Portable chest. COMPARISON: 05/22/2016 FINDINGS: There is mild to moderate cardiomegaly. There is moderate pulmonary vascular congestion and interst itial edema new compared to the prior. Prior median sternotomy is again noted. A left chest cardia c device and leads are unchanged. IMPRESSION: Moderate pulmonary vascular congestion and interstitial edema. RPTAT: HIKT .Sada Almaraz MD, MD Date Time Electronically viewed and signed by .Saad Almaraz MD, MD on 07/21/2016 00:37 .T/
[2016-07-21 01:02] LABS: AADO2 Arterial 381.4 mmHg (7.0-24.0); Arterial Base Excess -5.9 mmol/L (-3.0-3); Arterial COHb 0.3 % (0.0-3.0); Arterial Fraction of Oxyhgb 98.8 % (93.0-99.0); Arterial HCO3 19.4 mmol/L (22.0-26.0); Arterial MetHb 0.3 % (0.0-1.5); Blood Gas IEPAP 15/5; MODE MASK - BIPAP
[2016-07-21] MEDS ORDERED: PIPER-TAZO 2.25 GM (PMX) 50 ML IVPB ONE (01:30)
[2016-07-21] MEDS ORDERED: VANCOMYCIN 1 GM (PMX) 250 ML IVPB SCH (01:30)
[2016-07-21] MEDS: SOD CHLORIDE 0.9% 1,000 ML IV SCH ×2 (01:34→02:34)
--- NOTE | 2016-07-21 01:34 | HP ---
Date/Time of Note Date/Time of Note DATE: 07/21/16 TIME: 01:34 Assessment/Plan Lines/Catheters IV Catheter Type (from Nrs): Saline Lock HPI/ROS Admit Date/Time Admit Date/Time 07/21/16 ROS he patient is a 65-year-old male, presenting to the ER because of shortness of breath today, worse for the last 2 hours. He has similar symptoms previously. The history is mostly obtained from the admissions advisor and his son. He denies any fever, neck pain, chest pain, complaints of cough for the last couple days. He denies abdominal pain, vomiting, dysuria, diarrhea. He used to smoke. Past medical history: CAD, history of non-STEMI, dyslipidemia, history of CHF, ischemic cardiomyopathy 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%, chronic kidney disease, anxiety Past surgical history: Pacemaker, CABG ROS All systems reviewed and are negative except as per history of present illness. Medications Home Meds Active Scripts Amoxicillin/Potassium Clav (Amox-Clav 875-125 mg Tablet) 875-125 mg Tab, 1 TAB PO BID, #20 TAB Prov:SANJUANITA SPAULDING 07/08/16 Albuterol/Ipratropium* (Combivent Respimat*) 20-100 Mcg/Inh - 4 Gm Aer.w.adap, 1 PUFF INHALATION QID, #1 INHALER 1 Refill Prov:SANJUANITA SPAULDING 07/08/16 Lisinopril* (Lisinopril*) 10 Mg Tablet, 5 MG PO DAILY for 30 Days, TAB Prov:SANJUANITA SPAULDING 07/08/16 Furosemide (Lasix) 20 Mg Tab, 20 MG PO BID@06,18 for 30 Days, TAB Prov:NEGRITO KOTHARI NP 05/23/16 Carvedilol* (Carvedilol*) 12.5 Mg Tablet, 12.5 MG PO BID, #60 TAB Prov:GIA WILDER MD 03/07/16 Aspirin* (Aspirin* Chew) 81 Mg Tab.chew, 81 MG PO DAILY, #30 TAB.CHEW Prov:GIA WILDER MD 03/07/16 Atorvastatin* (Atorvastatin*) 80 Mg Tablet, 80 MG PO QHS, #30 TAB Prov:GIA WILDER MD 03/07/16 Reported Medications Ezetimibe* (Zetia*) 10 Mg Tablet, 10 MG PO DAILY, TAB 05/21/16 Amiodarone Hcl* (Amiodarone Hcl*) 100 Mg Tablet, 100 MG PO DAILY, #30 TAB 05/21/16 Zolpidem Tartrate* (Zolpidem Tartrate*) 10 Mg Tablet, 10 MG PO QHS Y for INSOMNIA, #30 TAB 01/25/16 PMH/Family/Social Past Medical History CAD, CHF, Hyperlipidemia, Cardiomyopathy Past Surgical History CABG Past Surgical Hx: coronary bypass surgery, other Social History Alcohol Use: none Smoking Status: Never smoker Drug Use: none Exam/Review of Systems Vital Signs Vitals Vital Signs Date Time Temp Pulse Resp B/P Pulse Ox O2 Delivery O2 Flow Rate FiO2 07/21/16 01:20 78 20 77/51 97 BIPAP 07/21/16 01:10 40 07/20/16 23:24 97.0 Exam Exam General: Eyes: Sclera White, EOMI HENT: Normocephalic/Atraumatic, External Ears/Nose Normal, Moist Mucus Membranes Neck: Supple, Trachea Midline Cardiovascular: Normal Rate, Regular Rhythm, Normal S1 and S2, No Murmur, No Extra Sounds. Radial pulse +2/4. No pedal Edema. Pulmonary: Clear to Auscultation Bilaterally, Normal Respiratory Effort, No Rales, Rhonchi or Wheezes Gastrointestinal: Normoactive Bowel Sounds, Soft, Non-Tender/Non-Distended, No Hepatosplenomegaly Appreciated, No Pulsatile Masses Urogenital: Deferred Musculoskeletal: Normal Muscle Bulk and Tone Neurological: CN II - XII Grossly Intact, Non-Focal, Speech Normal Integumentary: Normal Moisture and Temperature, Good Turgor, No Jaundice, No Rash Lymphatic: No Cervical Lymphadenopathy Psychiatric: Appropriate Mood and Affect, Good Eye Contact Labs Result Diagram: 07/20/16 2330 07/20/16 2330 Medications Medications Current Medications Vancomycin HCl 250 ml @ 125 mls/hr ONCE IVPB ; Start 07/21/16 at 01:30; Stop at 03:29 Piperacillin Sod/ Tazobactam Sod 50 ml @ 100 mls/hr ONCE ONCE IVPB ; Start at 01:30; Stop 07/21/16 at 01:59 Albumin Human 250 ml @ 250 mls/hr Q1H IV ; Start 07/21/16 at 01:30; Stop at 03:29 Procedures Procedures PROCEDURE: XR Chest. CLINICAL INDICATION: Possible sepsis TECHNIQUE: AP Portable chest. COMPARISON: 05/22/2016 FINDINGS: There is mild to moderate cardiomegaly. There is moderate pulmonary vascular congestion and interstitial edema new compared to the prior. Prior median sternotomy is again noted. A left chest cardiac device and leads are unchanged. IMPRESSION: Moderate pulmonary vascular congestion and interstitial edema. DAMI AVILA DO Jul 21, 2016 01:34
[2016-07-21] MEDS: ALBUMIN HUMAN 5% 250 ML IV SCH ×2 (01:42→03:26)
[2016-07-21] MEDS ORDERED: OXYCODONE/ACETAMINOPHEN (5/325) TAB PO PRN (02:00)
[2016-07-21] MEDS ORDERED: DOBUTamine/D5W 1 MG/ML DRIP 250 ML IV SCH (02:00)
[2016-07-21] MEDS ORDERED: morphine 2 MG INJ IV PRN (02:00)
[2016-07-21] MEDS ORDERED: METOCLOPRAMIDE 10 MG INJ IV PRN (02:00)
[2016-07-21] MEDS ORDERED: VANCOMYCIN IV PER PHARMACY XX SCH (02:00)
[2016-07-21] MEDS ORDERED: LORAZEPAM 2 MG INJ IV PRN (02:00)
[2016-07-21] MEDS ORDERED: ACETAMINOPHEN 650MG/20.3ML CUP PO PRN (02:00)
[2016-07-21] MEDS ORDERED: NITROGLYCERIN (SL) 0.4 MG TAB SL PRN (02:00)
[2016-07-21 03:15] LABS: BASOPHIL # 0.2 10^3/ul (0.0-0.1); EOSINOPHILS # 0.9 10^3/ul (0.0-0.5); LYMPHOCYTES # 5.7 10^3/ul (0.8-2.9); MONOCYTE # 2.8 10^3/ul (0.3-0.9); NEUTROPHIL # 9.2 10^3/ul (1.6-7.5)
[2016-07-21 03:17] LABS: PLATELET ESTIMATE PLT APPEAR INCREASED
[2016-07-21] MEDS ORDERED: VANCOMYCIN 500MG/NS (PMX) 100 ML IVPB ONE (04:00)
[2016-07-21] MEDS: ALBUTEROL/IPRATROPIUM (NEB) 3 ML AMP NEB SCH ×5 (04:35→20:23)
[2016-07-21] MEDS ORDERED: CEFEPIME 2GM/50 ML (PMX) 50 ML IVPB SCH (06:00)
[2016-07-21] MEDS ORDERED: LISINOPRIL 10 MG TAB PO SCH (09:00)
[2016-07-21] MEDS: EZETIMIBE 10 MG TAB PO SCH (09:44)
[2016-07-21] MEDS: ASPIRIN 81 MG TAB PO SCH (09:44)
[2016-07-21] MEDS: FAMOTIDINE 20 MG TAB PO SCH (09:45)
[2016-07-21] MEDS: AMIODARONE 200 MG TAB PO SCH (09:45)
[2016-07-21] MEDS: HEPARIN 5,000 UNIT/0.5 ML VIAL SC SCH ×2 (09:47→21:03)
--- NOTE | 2016-07-21 10:00 | CONS ---
Date/Time of Note Date/Time of Note DATE: 07/21/16 TIME: 09:44 Assessment/Plan Assessment/Plan Chief Complaint/Hosp Course Acute on chronic systolic/diastolic heart failure: Pt presented with sudden onset SOB with evidence of pulm edema on CXR as well as HTN up to 180s. This is now his third identical admission. What is very interesting is that he does not have a progression of his symptoms, his weight has been stable, and he was walking 1 mile the am of his presentation, his JVP is flat and his CXR shows significant edema. This is considering for flash pulmonary edema in the setting of his sudden onset HTN. In the setting of severe vascular disease including CAD , carotid disease, lower extremity disease, I am concerned that he may have renal artery stenosis. This may also explain why his Cr has been worsening over the past few months on lisinopril. HTN emergency: SBP on admission was 180, then dropped to the 80s (no medication documented but pt notes he took extra of his home meds when his BP was high). BP now ~140 CAD s/p CABG/PCI: initial trop negative. Doubt ischemic etiology but should trend trop x 1 more Ischemic cardiomyopathy: EF ~20-25%. s/p ICD for secondary prevention h/o MMVT: on amiodarone 100mg per EP recs CKD: baseline recently ~2.2-2.8 PVD: s/p CEA and has claudication and lower extremity disease as well -renal ultrasound for MAHESH evaluation -continue ASA -add plavix as recent stent -d/c lisinopril -instead start isordil and hydralazine -continue coreg -lasix 40mg IV x 2 doses, reevaluate tomorrow (home dose is 20mg daily recently) -check trop x 1 more Problems: Consultation Date/Type/Reason Admit Date/Time 07/21/16 Date of Consultation: Jul 21, 2016 Type of Consultation: Cardiology Reason for Consultation CHF Referring Provider: SANJUANITA SPAULDING Hx of Present Illness 65 yo M well known to me with a h/o CAD s/p CABG and PCI 2016, ICM (EF 20%), ICD for secondary prevention, h/o MMVT, PVD s/p CEA and with claudication, CKD ( Cr recently 2.2-2.8), HTN, HL, who presented with acute onset SOB. The pt was seen by me last week in clinic and was doing very well. Since then he continued to do well and even walked 1 mile in the morning yesterday per his routine and was not having SOB. In the evening he started to suddenly feel SOB and paramedics were called. When he arrived, he was still very SOB and his SBP was in the 180s. He was placed on BiPAP and felt better. He is back on NC now but still has SOB. No chest pain. He is very compliant with his meds and diet. His weight has been stable ~159lbs. per HPI Past Medical History per HPI Past Surgical History Past Surgical Hx: coronary bypass surgery, other Social History Alcohol Use: none Smoking Status: Never smoker Drug Use: none Exam/Review of Systems Vital Signs Vitals Vital Signs Date Time Temp Pulse Resp B/P Pulse Ox O2 Delivery O2 Flow Rate FiO2 07/21/16 09:12 74 07/21/16 06:42 97.3 18 140/62 100 Room Air 07/21/16 06:26 50 07/21/16 01:45 3.0 Exam Constitutional: alert, oriented, No distress Head: atraumatic, normocephalic Neck: No jvd Respiratory: crackles/rales, No clear to auscultation Cardiovascular: regular rate and rhythm, No edema Gastrointestinal: non-tender, soft Neurological: nl mental status, nl speech Results Result Diagram: 07/20/16 2330 07/20/16 2330 Results 24 hrs Laboratory Tests Test 07/20/16 23:26 07/20/16 23:30 07/21/16 01:30 07/21/16 04:30 Blood Gas Specimen Source Blood arterial Arterial Blood Date Drawn 07/21/2016 12:55:50 AM Arterial Blood pH (Temp corrected) 7.328 L Arterial Blood pCO2 (Temp correct) 37.9 Arterial Blood pO2 (Temp corrected) 293.7 H Arterial Blood HCO3 19.4 L Arterial Blood Base Excess -5.9 L Arterial Blood Oxygen Saturation 99.4 H Aaron Test N/A Arterial Blood Gas Puncture Site Right Brachial Arterial Blood Carboxyhemoglobin 0.3 Arterial Blood Methemoglobin 0.3 Blood Gas A-a O2 Differential 381.4 H Oxyhemoglobin Percent 98.8 Total Hemoglobin 15.0 Blood Gas Temperature 37.0 Blood Gas Respiration Rate 20.0 Blood Gas Actual Respiration Rate 24 Blood Gas Modality MASK - BIPAP FiO2 100.0 Blood Gas IPAP/EPAP Ratio 15/5 Blood Gas Notified Whom MG Blood Gas Notified Time 07/21/2016 1:02:34 AM White Blood Count 23.7 #H Red Blood Count 5.51 Hemoglobin 15.9 # Hematocrit 52.9 #H Mean Corpuscular Volume 96.0 Mean Corpuscular Hemoglobin 28.9 L Mean Corpuscular Hemoglobin Concent 30.1 L Red Cell Distribution Width 13.5 Platelet Count 905 #H Mean Platelet Volume 11.6 H Neutrophils % 39.0 Lymphocytes % 24.0 Reactive Lymphocytes % 20.0 Monocytes % 12.0 H Eosinophils % 4.0 Basophils % 1.0 Neutrophils # 9.2 H Lymphocytes # 5.7 H Monocytes # 2.8 H Eosinophils # 0.9 H Basophils # 0.2 H Platelet Estimate PLT APPEAR INCREASED Prothrombin Time 13.0 Prothrombin Time Ratio 1.0 INR International Normalized Ratio 0.98 Activated Partial Thromboplast Time 35.1 H Sodium Level 140 Potassium Level 5.2 H Chloride Level 110 Carbon Dioxide Level 19 L Anion Gap 16 Blood Urea Nitrogen 36 H Creatinine 2.49 H Glucose Level 216 Lactic Acid Level 2.5 H 1.8 1.2 Calcium Level 8.9 Total Bilirubin 0.4 Direct Bilirubin 0.00 Indirect Bilirubin 0.4 Aspartate Amino Transf (AST/SGOT) 28 Alanine Aminotransferase (ALT/SGPT) 24 Alkaline Phosphatase 81 Troponin I 0.071 Total Protein 7.2 Albumin 4.1 Globulin 3.10 Albumin/Globulin Ratio 1.32 Magnesium Level 2.3 Medications Medications Current Medications Metoclopramide HCl (Reglan) 10 mg Q6H PRN IV NAUSEA AND/OR VOMITING; Start at 02:00 Nitroglycerin (Nitroglycerin (Sl Tab) 0.4 Mg) 1 tab Q5M PRN SL CHEST PAIN; Start 07/21/16 at 02:00 Acetaminophen (Tylenol Liquid) 650 mg Q6H PRN PO PAIN LEVEL 1-3 OR FEVER; Start 07/21/16 at 02:00 Oxycodone/ Acetaminophen (Percocet (5/ 325)) 1 tab Q6H PRN PO PAIN LEVEL 4-6; Start 07/21/16 at 02:00 Morphine Sulfate (morphine) 2 mg Q4H PRN IV PAIN LEVEL 7-10; Start 07/21/16 at 02:00 Lorazepam (Ativan) 0.5 mg Q6 PRN IV ANXIETY; Start 07/21/16 at 02:00 Famotidine (Pepcid) 20 mg DAILY PO ; Start 07/21/16 at 09:00 Heparin Sodium (Porcine) 5000 unit 5,000 unit Q12 SC ; Start 07/21/16 at 09:00 Dobutamine HCl/ Dextrose 250 ml @ 11.25 mls/ hr TITRATE IV ; Start 07/21/16 at 02:00 Cefepime HCl (Maxipime 2gm/50 ml (Pmx)) 50 ml @ 100 mls/hr Q8 IVPB Last administered on 07/21/16t 07:25; Admin Dose 100 MLS/HR; Start 07/21/16 at 06:00 Amiodarone HCl (Cordarone) 100 mg DAILY PO ; Start 07/21/16 at 09:00 Aspirin (Aspirin) 81 mg DAILY PO ; Start 07/21/16 at 09:00 Atorvastatin Calcium (Lipitor) 80 mg QHS PO ; Start 07/21/16 at 21:00 Carvedilol (Coreg) 12.5 mg BID PO ; Start 07/21/16 at 09:00 EZETIMIBE (Zetia) 10 mg DAILY PO ; Start 07/21/16 at 09:00 Lisinopril (Zestril) 5 mg DAILY PO ; Start 07/21/16 at 09:00 EMILY TREVIÑO Jul 21, 2016 09:56
[2016-07-21] MEDS: CLOPIDOGREL 75 MG TAB PO SCH (10:06)
[2016-07-21] MEDS: FUROSEMIDE 40 MG INJ IV SCH ×2 (10:06→17:58)
[2016-07-21] MEDS: ISOSORBIDE DINITRATE 5 MG TAB PO SCH ×3 (13:33→21:01)
[2016-07-21 19:29] LABS: ADD SCAN DIFF NO
[2016-07-21 19:31] LABS: BASOPHIL # 0.1 10^3/ul (0.0-0.1); BASOPHILS % 0.4 % (0.0-2.0); EOSINOPHILS # 0.2 10^3/ul (0.0-0.5); EOSINOPHILS % 1.3 % (0.0-7.0); HEMATOCRIT 37.3 % (42.0-52.0); HEMOGLOBIN 12.1 g/dl (14.0-18.0); LYMPHOCYTES # 1.9 10^3/ul (0.8-2.9); LYMPHOCYTES % 12.8 % (15.0-51.0); MEAN CORPUSCULAR HEMOGLOBIN 29.3 pg (29.0-33.0); MEAN CORPUSCULAR HGB CONC 32.4 g/dl (32.0-37.0); MEAN CORPUSCULAR VOLUME 90.3 fl (82.0-101.0); MEAN PLATELET VOLUME 10.9 fl (7.4-10.4); MONOCYTES % 6.8 % (0.0-11.0); NEUTROPHIL # 11.3 10^3/ul (1.6-7.5); NEUTROPHILS % 77.9 % (39.0-77.0); PLATELET COUNT 567 10^3/UL (140-415); RED BLOOD COUNT 4.13 10^6/ul (4.70-6.10); RED CELL DISTRIBUTION WIDTH 13.6 % (11.5-14.5); WHITE BLOOD COUNT 14.5 10^3/ul (4.8-10.8)
[2016-07-21] MEDS: ATORVASTATIN 80 MG TAB PO SCH (21:00)
[2016-07-21] MEDS: CEFEPIME 1GM/50 ML IVPB SCH (21:09)
[2016-07-21] MEDS: ZOLPIDEM 5 MG TAB PO PRN (22:21)
--- NOTE | 2016-07-21 22:30 | RADRPT ---
PROCEDURE: Bilateral renal artery Doppler and duplex ultrasound CLINICAL INDICATION: Hypertension. Clinical concern for renal artery stenosis TECHNIQUE: Real time sonographic imaging of the kidneys, abdominal aorta and renal artery segments is performed with multiple Doppler and duplex images submitted to the PACS for interpretation COMPARISON: None available FINDINGS: Right side: The kidney is normal in size, contour and echogenicity the maximum dimension measuring 9 .5 cm in length. There is no evidence of mass, calculus or hydronephrosis. The peak systolic veloc ity of the abdominal aorta is estimated at 41 cm/s. The peak systolic velocity through the proximal renal artery is 170 cm/s with a triphasic wave form, the resistive index is 0.87. The peak systol ic velocity of the upper pole renal segment is 17 cm/s with the resistive index of 0.68. In the in terpolar segment peak systolic velocity is approximately 52 cm/s with the resistive index of 0.75. The lower pole peak systolic velocity is estimated at 25 cm/s with the resistive index of 0.77. T he renal artery to aortic peak systolic velocity ratio of 3.5 raises concern for a significant steno sis of the proximal right renal artery segment. Left side: The kidney is normal in size, contour and echogenicity without mass, calculus or hydrone phrosis. The renal length measures approximately 9 cm. The peak systolic velocity of the proximal renal artery segment is estimated at 40 cm/s with the resistive index of 0.62. The middle portion of the left renal artery has a peak systolic velocity estimated at 47 cm/s with the resistive index of 0.77. The distal renal artery segment has a peak systolic velocity of approximately 33 cm/s wi th the resistive index of 0.66. The upper pole peak systolic velocity is estimated at 18 cm/s with the resistive index of 0.63. The interpolar arteries had a peak systolic velocity estimated at 11 cm/s with the resistive index of 0.64 and the lower pole artery peak systolic velocity is estimated at 14 cm/s with the resistive index of 0.7. RPTAT:HJJR IMPRESSION: 1. Elevated peak systolic velocity and ratio involving the proximal right renal artery is concernin g for a significant stenosis in the range of 30-49%. The patient with likely benefit from follow-up evaluation with CT angiography of the renal arteries. There is not be clinically feasible, alternat ively nuclear medicine ANNE inhibitor renal flow and function study might be considered. 2. No evidence of hemodynamically significant stenosis involving the left renal artery system. Santino Matthews Physician Date Time Electronically viewed and signed by Santino Matthews Physician on 07/21/2016 22:30 JR/
[2016-07-22] VITALS (12 sets, daily range): BP systolic 94–142; BP diastolic 55–66; PULSE 71–88; RESP 16–20
[2016-07-22] MEDS: ZOLPIDEM 5 MG TAB PO PRN ×2 (00:03→21:52)
[2016-07-22] MEDS: ALBUTEROL/IPRATROPIUM (NEB) 3 ML AMP NEB SCH ×6 (01:05→21:21)
[2016-07-22 07:35] LABS: ADD SCAN DIFF NO
[2016-07-22 07:45] LABS: BASOPHIL # 0.1 10^3/ul (0.0-0.1); BASOPHILS % 0.6 % (0.0-2.0); EOSINOPHILS # 0.3 10^3/ul (0.0-0.5); EOSINOPHILS % 2.1 % (0.0-7.0); HEMATOCRIT 39.2 % (42.0-52.0); HEMOGLOBIN 12.2 g/dl (14.0-18.0); LYMPHOCYTES # 2.3 10^3/ul (0.8-2.9); LYMPHOCYTES % 18.2 % (15.0-51.0); MEAN CORPUSCULAR HEMOGLOBIN 28.5 pg (29.0-33.0); MEAN CORPUSCULAR HGB CONC 31.1 g/dl (32.0-37.0); MEAN CORPUSCULAR VOLUME 91.6 fl (82.0-101.0); MEAN PLATELET VOLUME 11.5 fl (7.4-10.4); MONOCYTE # 1.2 10^3/ul (0.3-0.9); MONOCYTES % 9.7 % (0.0-11.0); NEUTROPHIL # 8.5 10^3/ul (1.6-7.5); NEUTROPHILS % 68.2 % (39.0-77.0); PLATELET COUNT 534 10^3/UL (140-415); RED BLOOD COUNT 4.28 10^6/ul (4.70-6.10); RED CELL DISTRIBUTION WIDTH 13.8 % (11.5-14.5); WHITE BLOOD COUNT 12.5 10^3/ul (4.8-10.8)
[2016-07-22 07:57] LABS: POTASSIUM 4.6 mmol/L (3.5-5.1)
[2016-07-22 07:59] LABS: CREATININE 3.33 mg/dl (0.61-1.24)
[2016-07-22 08:00] LABS: CALCIUM 9.7 mg/dl (8.4-10.2); MAGNESIUM 2.1 mg/dl (1.7-2.5)
[2016-07-22] MEDS ORDERED: FUROSEMIDE 20 MG INJ IV SCH (08:00)
--- NOTE | 2016-07-22 08:01 | CONS ---
Date/Time of Note Date/Time of Note DATE: 07/22/16 TIME: 07:56 Assessment/Plan Assessment/Plan Chief Complaint/Hosp Course Acute on chronic systolic/diastolic heart failure: Pt presented with sudden onset SOB with evidence of pulm edema on CXR as well as HTN up to 180s. This is now his third identical admission. What is very interesting is that he does not have a progression of his symptoms, his weight has been stable, and he was walking 1 mile the am of his presentation, his JVP is flat and his CXR shows significant edema. This is considering for flash pulmonary edema in the setting of his sudden onset HTN. He has right renal artery stenosis by ultrasound but 30 -50%. Will need anlother test for better evaluation, ?nuclear med test since renal dysfunction. HTN emergency: SBP on admission was 180, then dropped to the 80s (no medication documented but pt notes he took extra of his home meds when his BP was high). BP now controlled CAD s/p CABG/PCI: initial trop negative. Doubt ischemic etiology Ischemic cardiomyopathy: EF ~20-25%. s/p ICD for secondary prevention h/o MMVT: on amiodarone 100mg per EP recs CKD: baseline recently ~2.2-2.8 PVD: s/p CEA and has claudication and lower extremity disease as well -nephrology consult -will consider nuclear scan for renal artery stenosis assessment -lasix 20mg IV BID today as still e/o CHF -continue ASA, plavix -increase to isordil 10mg -hydralazine 25mg -continue coreg Problems: Consultation Date/Type/Reason Admit Date/Time Jul 21, 2016 at 01:34 Initial Consult Date 07/21/16 Type of Consultation: Cardiology Referring Provider: SANJUANITA SPAULDING 24 HR Interval Summary Free Text/Dictation Feels better. Has not ambulated yet. Exam/Review of Systems Vital Signs Vitals Vital Signs Date Time Temp Pulse Resp B/P Pulse Ox O2 Delivery O2 Flow Rate FiO2 07/22/16 07:28 98.1 79 19 129/66 98 07/22/16 05:56 Nasal Cannula 3.0 07/21/16 06:26 50 Intake and Output 07/21/16 07/21/16 07/22/16 15:00 23:00 07:00 Intake Total 770 ml Output Total 800 ml Balance -30 ml Exam Constitutional: alert, oriented Head: atraumatic, normocephalic Neck: jvd (7cm) Respiratory: crackles/rales Cardiovascular: regular rate and rhythm, No edema Gastrointestinal: soft Neurological: nl mental status, nl speech Results Result Diagram: 07/21/16192407/20/16 2330 Results 24 hrs Laboratory Tests Test 07/21/16 11:06 07/21/16 14:00 07/21/16 17:40 07/21/16 19:25 Lactic Acid Level 0.8 1.0 0.7 White Blood Count 14.5 #H Red Blood Count 4.13 #L Hemoglobin 12.1 #L Hematocrit 37.3 #L Mean Corpuscular Volume 90.3 Mean Corpuscular Hemoglobin 29.3 Mean Corpuscular Hemoglobin Concent 32.4 Red Cell Distribution Width 13.6 Platelet Count 567 #H Mean Platelet Volume 10.9 H Neutrophils % 77.9 H Lymphocytes % 12.8 L Monocytes % 6.8 Eosinophils % 1.3 Basophils % 0.4 Nucleated Red Blood Cells % 0.0 Neutrophils # 11.3 H Lymphocytes # 1.9 Monocytes # 1.0 H Eosinophils # 0.2 Basophils # 0.1 Nucleated Red Blood Cells # 0.0 Test 07/21/16 21:35 Lactic Acid Level 0.8 Medications Medications Current Medications Metoclopramide HCl (Reglan) 10 mg Q6H PRN IV NAUSEA AND/OR VOMITING; Start at 02:00 Nitroglycerin (Nitroglycerin (Sl Tab) 0.4 Mg) 1 tab Q5M PRN SL CHEST PAIN; Start 07/21/16 at 02:00 Acetaminophen (Tylenol Liquid) 650 mg Q6H PRN PO PAIN LEVEL 1-3 OR FEVER; Start 07/21/16 at 02:00 Oxycodone/ Acetaminophen (Percocet (5/ 325)) 1 tab Q6H PRN PO PAIN LEVEL 4-6; Start 07/21/16 at 02:00 Morphine Sulfate (morphine) 2 mg Q4H PRN IV PAIN LEVEL 7-10; Start 07/21/16 at 02:00 Lorazepam (Ativan) 0.5 mg Q6 PRN IV ANXIETY; Start 07/21/16 at 02:00 Famotidine (Pepcid) 20 mg DAILY PO Last administered on 07/21/16 09:45; Admin Dose 20 MG; Start 07/21/16 at 09:00 Heparin Sodium (Porcine) (Heparin (5000 Units/0.5 ml)) 5,000 unit Q12 SC Last administered on 07/21/16 21:03; Admin Dose 5,000 UNIT; Start 07/21/16 at 09:00 Amiodarone HCl (Cordarone) 100 mg DAILY PO Last administered on 07/21/16 09:45 ; Admin Dose 100 MG; Start 07/21/16 at 09:00 Aspirin (Aspirin) 81 mg DAILY PO Last administered on 07/21/16 09:44; Admin Dose 81 MG; Start 07/21/16 at 09:00 Atorvastatin Calcium (Lipitor) 80 mg QHS PO ; Start 07/21/16 at 21:00 Carvedilol (Coreg) 12.5 mg BID PO Last administered on 07/21/16 21:01; Admin Dose 12.5 MG; Start 07/21/16 at 09:00 EZETIMIBE (Zetia) 10 mg DAILY PO Last administered on 07/21/16 09:44; Admin Dose 10 MG; Start 07/21/16 at 09:00 Isosorbide Dinitrate (Isordil) 5 mg TID PO Last administered on 07/21/16 13:33 ; Admin Dose 5 MG; Start 07/21/16 at 13:00 Hydralazine HCl (Apresoline) 25 mg TID PO Last administered on 07/21/16 21:00 ; Admin Dose 25 MG; Start 07/21/16 at 13:00 Clopidogrel Bisulfate 75 mg 75 mg DAILY PO Last administered on 07/21/16 10:06 ; Admin Dose 75 MG; Start 07/21/16 at 10:00 Cefepime HCl (Maxipime 1gm/50 ml (Pmx)) 50 ml @ 100 mls/hr Q12 IVPB Last administered on 07/21/16 21:09; Admin Dose 100 MLS/HR; Start 07/21/16 at 21:00 EMILY TREVIÑO Jul 22, 2016 08:01
[2016-07-22] MEDS: EZETIMIBE 10 MG TAB PO SCH (08:59)
[2016-07-22] MEDS: CEFEPIME 1GM/50 ML IVPB SCH (08:59)
[2016-07-22] MEDS: CLOPIDOGREL 75 MG TAB PO SCH (08:59)
[2016-07-22] MEDS: ASPIRIN 81 MG TAB PO SCH (08:59)
[2016-07-22] MEDS: FAMOTIDINE 20 MG TAB PO SCH (08:59)
[2016-07-22] MEDS: AMIODARONE 200 MG TAB PO SCH (09:00)
[2016-07-22] MEDS ORDERED: FUROSEMIDE 20 MG TAB PO SCH (09:00)
[2016-07-22] MEDS: ISOSORBIDE DINITRATE 10 MG TAB PO SCH ×3 (09:02→20:48)
[2016-07-22] MEDS: HEPARIN 5,000 UNIT/0.5 ML VIAL SC SCH ×2 (09:07→20:51)
--- NOTE | 2016-07-22 10:25 | RADRPT ---
PROCEDURE: US Abdomen. CLINICAL INDICATION: abdominal pain , elevated WBC TECHNIQUE: Multiple real-time images were acquired of the patient's left upper quadrant abdomen an d retroperitoneum utilizing a high resolution transducer. COMPARISON: None FINDINGS: The spleen is normal in size and measures 11 cm. RPTAT: AA IMPRESSION: Normal size spleen. .Hernandez Romero MD, MD Date Time Electronically viewed and signed by .Hernandez Romero MD, MD on 07/22/2016 10:25 .S/
--- NOTE | 2016-07-22 10:49 | CONS ---
DATE OF ADMISSION: 07/21/2016 DATE OF CONSULTATION: 07/22/2016 TYPE OF CONSULTATION: Hematology REQUESTING PHYSICIAN: Mildred Whyte MD REASON FOR CONSULTATION: Leukocytosis and thrombocytosis. Dear Dr. Whyte: Thank you very much for asking me to see this very interesting and pleasant gentleman in hematologic consultation. As you know, Mr. Vance is a 65-year-old male who was admitted to [facility] via the emergency room on 07/20/2016 with complaints of sudden onset of increasing shortn ess of breath. The patient has had multiple similar hospitalizations in the past several months. The patient states he was well until approximately 10/2015. At that time, the patient apparently butler d a myocardial infarction. The patient did undergo coronary artery bypass graft surgery in 10/2015. Four months later, the patient states he again had anginal symptoms and required coronary artery s tent placement. Also at that time, he had the placement of a pacemaker and defibrillator. The patient on admission at this time had a white count of 23,700 with 39% neutrophils, 24% lymphocy hussein with 20% "reactive" lymphocytes and 12% monocytes. Hemoglobin was 15.9, hematocrit 52.9 and victoriano telet count 905,000. On 07/21/2016, the white count was 14,500, hemoglobin 12.1 and platelet count 567,000. This morning, the white count is 12,500 with 68.2% neutrophils and 18.2% lymphocytes. Hem oglobin is 12.2, hematocrit 39.2 and platelet count 534,000. Other laboratories includes an admission sodium of 140, potassium 5.2, BUN 36, creatinine 2.49. Tot al bilirubin 0.4, direct bilirubin 0, AST 28, ALT 24, alkaline phosphatase 81. Troponin 0.071. Tod ay, the patient's creatinine is 3.33 and BUN 39, sodium 142, potassium 5.6. The patient states that he has not been told of any hematologic abnormalities in the past. He has n ot had any symptoms such as left upper quadrant fullness or early satiety. He does not complain of night sweats. He has had no unusual bruising or bleeding. No bone pain. No unusual pruritus after a hot bath or shower. Chest x-ray done during this admission shows evidence of a sternotomy. There is the left-sided pace maker. There is moderate pulmonary vascular congestion and interstitial edema. Also seems to be a right suprahilar fullness. PAST MEDICAL HISTORY: Does include the history of coronary artery disease as well as the previous m yocardial infarction. The patient also has known ischemic cardiomyopathy with an ejection fraction of only 20%. Also, chronic kidney disease. PAST SURGICAL HISTORY: In the past apparently have only included the pacemaker and bypass surgery. As noted, the patient has had a stent placed as well. SOCIAL HISTORY: The patient has not knowingly been exposed to any industrial toxins or ionizing rad iation. States he stopped smoking at the time of his initial myocardial infarction. Did have over a [id number] smoking history prior to that. MEDICATIONS: At the time of admission included: 1. Combivent inhaler. 2. Lisinopril 5 mg daily. 3. Furosemide 20 mg twice a day. 4. Carvedilol 12.5 mg twice a day. 5. Atorvastatin 80 mg daily. 6. Amiodarone 100 mg daily. 7. Zetia 10 mg daily. 8. Zolpidem p.r.n. ALLERGIES: THE PATIENT HAS NO KNOWN ALLERGIES. PHYSICAL EXAMINATION: GENERAL: At this time reveals a well-developed, well-nourished male who is in no acute distress. VITAL SIGNS: Temperature 98.1, pulse 88 per minute and regular, respirations 19, blood pressure is 129/66, and pulse oximetry is 98% on 2 liters of oxygen via nasal cannula. SKIN: No ecchymosis, no petechiae or rashes. HEENT: Normocephalic. No evidence of trauma. The pupils are equal, round, react to light and acco mmodation. Sclerae nonicteric. Oral mucosa is moist without lesions. Tongue is well papillated. There is no gingival hyperplasia, no hypertrophy of Waldeyer's ring, no mucosal telangiectasias. NECK: Supple. There is no jugular venous distention or thyroid enlargement. No carotid bruits. CHEST: Clear to auscultation and percussion. No rhonchi, wheezes, rales or rubs. There is a currie otomy scar present. This is well healed. There is also a cardiac device in the left anterior chest . NODES: No palpable lymphadenopathy. BREASTS: No gynecomastia. ABDOMEN: Soft. There are no masses or ascites. I cannot detect any splenomegaly. EXTREMITIES: Good range of motion, no clubbing, edema or cyanosis. No palpable cords or Homans sig n. Peripheral smear has been reviewed. Red blood cell morphology is normal. White blood cells are inc reased. There are no immature neutrophils, no hypersegmented polys, no nucleated red blood cells. There are increased lymphocytes and a population of atypical or "reactive" lymphocytes. Platelets a re markedly increased. They are mostly small forms and not any large or unusual forms. DISCUSSION: I feel it is very likely that this patient's leukocytosis and thrombocytosis seen on ad mission are reactive. Over the hospitalization, his counts have continued to improve although plate let count is still marginally elevated. Review of the patient's previous admissions demonstrate a somewhat similar pattern in the past. The patient does not have any splenomegaly or any other symptoms suggesting a myeloproliferative christopher plasm. I will, however, pursue this by obtaining an LDH, uric acid and a JAK2 mutation. We will al so request a limited ultrasound of the abdomen to estimate spleen size. As noted, the patient did have a significant population of reactive or atypical lymphocytes at the t enrique of the patient's admission. I feel again this is likely reactive, but will obtain a serum prote in electrophoresis, immunofixation, beta-2 microglobulin, and also flow cytometry on the peripheral blood to determine if there is a monoclonal B-cell population. The patient has been noted also to have this suprahilar mass or fullness on chest x-ray. It is not clear when this was first noted, but apparently was not noted at the time of the patient's cardiac s urgery. He states he has had a chest CT scan done within the past year at [facility]. I will try to review those findings. Once again, thank you very much for the opportunity of participating in the medical care of this yaritza y interesting and pleasant patient. I will be happy to follow this patient with you and assist in h is hematologic evaluation and followup as necessary. Dictated By: MICHELLE CHAKRABORTY MD, SR/LUIS Conf#: [id number] DID#: [id number]
--- NOTE | 2016-07-22 11:26 | PN ---
Date/Time of Note Date/Time of Note DATE: 07/22/16 TIME: 11:15 Assessment/Plan VTE Prophylaxis VTE Prophylaxis Intervention: ambulation, SCD's Lines/Catheters IV Catheter Type (from Nrs): Saline Lock Urinary Cath still in place: No Assessment/Plan Assessment/Plan 65 yo M managed for the following 1. Acute on chronic systolic/diastolic heart failure: 2. HTN emergency:improved 3. CAD s/p CABG/PCI 4. Ischemic cardiomyopathy: EF ~20-25% S/p ICD for secondary prevention 5. SIRS with bone marrow hyperactivity: likely reactive/ improved 6. DONNY on CKD likely 2/2 diuretics 7. PVD 8. Prev Tobacco use 9. R sided Renal artery stenosis 10. Hyperuricemia PLAN: * Await nephrology review and recommendations * appreciate heme onc review, f/u final recs * continue to monitor electrolytes * ?allopurinol, will defer to renal * Continue supportive care Subjective 24 Hr Interval Summary Free Text/Dictation patient doing well no more SOB or chest pain we discussed imaging findings Exam/Review of Systems Vital Signs Vitals Vital Signs Date Time Temp Pulse Resp B/P Pulse Ox O2 Delivery O2 Flow Rate FiO2 07/22/16 09:44 82 18 94 21 07/22/16 08:00 Nasal Cannula 2.0 07/22/16 07:28 98.1 129/66 Intake and Output 07/21/16 07/21/16 07/22/16 15:00 23:00 07:00 Intake Total 770 ml Output Total 800 ml Balance -30 ml Exam Constitutional: alert, oriented Psych: nl mood/affect Head: atraumatic, normocephalic Eyes: PERRL ENMT: mucosa pink and moist Neck: supple Respiratory: diminished breath sounds, No crackles/rales, No wheezing Cardiovascular: regular rate and rhythm, No murmurs/extra sounds Gastrointestinal: bowel sounds, non-tender, soft Extremities: No edema Neurological: nl mental status, nl speech Results Result Diagram: 07/22/16 0639 07/22/16 0639 Results 24 hrs Laboratory Tests Test 07/21/16 14:00 07/21/16 17:40 07/21/16 19:25 07/21/16 21:35 Lactic Acid Level 1.0 0.7 0.8 White Blood Count 14.5 #H Red Blood Count 4.13 #L Hemoglobin 12.1 #L Hematocrit 37.3 #L Mean Corpuscular Volume 90.3 Mean Corpuscular Hemoglobin 29.3 Mean Corpuscular Hemoglobin Concent 32.4 Red Cell Distribution Width 13.6 Platelet Count 567 #H Mean Platelet Volume 10.9 H Neutrophils % 77.9 H Lymphocytes % 12.8 L Monocytes % 6.8 Eosinophils % 1.3 Basophils % 0.4 Nucleated Red Blood Cells % 0.0 Neutrophils # 11.3 H Lymphocytes # 1.9 Monocytes # 1.0 H Eosinophils # 0.2 Basophils # 0.1 Nucleated Red Blood Cells # 0.0 Test 07/22/16 06:39 White Blood Count 12.5 H Red Blood Count 4.28 L Hemoglobin 12.2 L Hematocrit 39.2 L Mean Corpuscular Volume 91.6 Mean Corpuscular Hemoglobin 28.5 L Mean Corpuscular Hemoglobin Concent 31.1 L Red Cell Distribution Width 13.8 Platelet Count 534 H Mean Platelet Volume 11.5 H Neutrophils % 68.2 Lymphocytes % 18.2 Monocytes % 9.7 Eosinophils % 2.1 Basophils % 0.6 Nucleated Red Blood Cells % 0.0 Neutrophils # 8.5 H Lymphocytes # 2.3 Monocytes # 1.2 H Eosinophils # 0.3 Basophils # 0.1 Nucleated Red Blood Cells # 0.0 Sodium Level 142 Potassium Level 4.6 Chloride Level 105 Carbon Dioxide Level 24 Anion Gap 18 H Blood Urea Nitrogen 49 #H Creatinine 3.33 H Glucose Level 88 # Lactic Acid Level 1.2 Uric Acid 8.0 H Calcium Level 9.7 Magnesium Level 2.1 Lactate Dehydrogenase 743 H Medications Medications Current Medications Metoclopramide HCl (Reglan) 10 mg Q6H PRN IV NAUSEA AND/OR VOMITING; Start at 02:00 Nitroglycerin (Nitroglycerin (Sl Tab) 0.4 Mg) 1 tab Q5M PRN SL CHEST PAIN; Start 07/21/16 at 02:00 Acetaminophen (Tylenol Liquid) 650 mg Q6H PRN PO PAIN LEVEL 1-3 OR FEVER; Start 07/21/16 at 02:00 Oxycodone/ Acetaminophen (Percocet (5/ 325)) 1 tab Q6H PRN PO PAIN LEVEL 4-6; Start 07/21/16 at 02:00 Morphine Sulfate (morphine) 2 mg Q4H PRN IV PAIN LEVEL 7-10; Start 07/21/16 at 02:00 Lorazepam (Ativan) 0.5 mg Q6 PRN IV ANXIETY; Start 07/21/16 at 02:00 Famotidine (Pepcid) 20 mg DAILY PO Last administered on 07/22/16 08:59; Admin Dose 20 MG; Start 07/21/16 at 09:00 Heparin Sodium (Porcine) (Heparin (5000 Units/0.5 ml)) 5,000 unit Q12 SC Last administered on 07/22/16 09:07; Admin Dose 5,000 UNIT; Start 07/21/16 at 09:00 Amiodarone HCl (Cordarone) 100 mg DAILY PO Last administered on 07/22/16 09:00 ; Admin Dose 100 MG; Start 07/21/16 at 09:00 Aspirin (Aspirin) 81 mg DAILY PO Last administered on 07/22/16 08:59; Admin Dose 81 MG; Start 07/21/16 at 09:00 Atorvastatin Calcium (Lipitor) 80 mg QHS PO ; Start 07/21/16 at 21:00 Carvedilol (Coreg) 12.5 mg BID PO Last administered on 07/22/16 09:00; Admin Dose 12.5 MG; Start 07/21/16 at 09:00 EZETIMIBE (Zetia) 10 mg DAILY PO Last administered on 07/22/16 08:59; Admin Dose 10 MG; Start 07/21/16 at 09:00 Hydralazine HCl (Apresoline) 25 mg TID PO Last administered on 07/22/16 08:59 ; Admin Dose 25 MG; Start 07/21/16 at 13:00 Clopidogrel Bisulfate 75 mg 75 mg DAILY PO Last administered on 07/22/16 08:59 ; Admin Dose 75 MG; Start 07/21/16 at 10:00 Cefepime HCl (Maxipime 1gm/50 ml (Pmx)) 50 ml @ 100 mls/hr Q12 IVPB Last administered on 07/22/16 08:59; Admin Dose 100 MLS/HR; Start 07/21/16 at 21:00 Isosorbide Dinitrate (Isordil) 10 mg TID PO Last administered on 07/22/16 09: 02; Admin Dose 10 MG; Start 07/22/16 at 09:00 Furosemide (Lasix) 20 mg DAILY PO Last administered on 07/22/16t 10:08; Admin Dose 20 MG; Start 07/22/16 at 09:00 Procedures Procedures PROCEDURE: US Abdomen. CLINICAL INDICATION: abdominal pain , elevated WBC TECHNIQUE: Multiple real-time images were acquired of the patient's left upper quadrant abdomen and retroperitoneum utilizing a high resolution transducer. COMPARISON: None FINDINGS: The spleen is normal in size and measures 11 cm. RPTAT: AA IMPRESSION: Normal size spleen. .Hernandez Romero MD, MD Date Time Electronically viewed and signed by .Hernandez Romero MD, MD on 07/22/2016 10: 25 .S/ CC: MICHELLE CHAKRABORTY MD PROCEDURE: Bilateral renal artery Doppler and duplex ultrasound CLINICAL INDICATION: Hypertension. Clinical concern for renal artery stenosis TECHNIQUE: Real time sonographic imaging of the kidneys, abdominal aorta and renal artery segments is performed with multiple Doppler and duplex images submitted to the PACS for interpretation COMPARISON: None available FINDINGS: Right side: The kidney is normal in size, contour and echogenicity the maximum dimension measuring 9.5 cm in length. There is no evidence of mass, calculus or hydronephrosis. The peak systolic velocity of the abdominal aorta is estimated at 41 cm/s. The peak systolic velocity through the proximal renal artery is 170 cm/s with a triphasic wave form, the resistive index is 0.87. The peak systolic velocity of the upper pole renal segment is 17 cm/s with the resistive index of 0.68. In the interpolar segment peak systolic velocity is approximately 52 cm/s with the resistive index of 0.75. The lower pole peak systolic velocity is estimated at 25 cm/s with the resistive index of 0.77. The renal artery to aortic peak systolic velocity ratio of 3.5 raises concern for a significant stenosis of the proximal right renal artery segment. Left side: The kidney is normal in size, contour and echogenicity without mass , calculus or hydronephrosis. The renal length measures approximately 9 cm. The peak systolic velocity of the proximal renal artery segment is estimated at 40 cm/s with the resistive index of 0.62. The middle portion of the left renal artery has a peak systolic velocity estimated at 47 cm/s with the resistive index of 0.77. The distal renal artery segment has a peak systolic velocity of approximately 33 cm/s with the resistive index of 0.66. The upper pole peak systolic velocity is estimated at 18 cm/s with the resistive index of 0.63. The interpolar arteries had a peak systolic velocity estimated at 11 cm/s with the resistive index of 0.64 and the lower pole artery peak systolic velocity is estimated at 14 cm/s with the resistive index of 0.7. RPTAT:HJJR IMPRESSION: 1. Elevated peak systolic velocity and ratio involving the proximal right renal artery is concerning for a significant stenosis in the range of 30-49%. The patient with likely benefit from follow-up evaluation with CT angiography of the renal arteries. There is not be clinically feasible, alternatively nuclear medicine ANNE inhibitor renal flow and function study might be considered. 2. No evidence of hemodynamically significant stenosis involving the left renal artery system. Physician Michale Date Time Electronically viewed and signed by Physician Michael on 07/21/2016 22:30 JR/ CC: EMILY TREVIÑO BOLATITO M. Jul 22, 2016 11:26
[2016-07-22] MEDS: ATORVASTATIN 80 MG TAB PO SCH (20:55)
[2016-07-23] VITALS (12 sets, daily range): BP systolic 93–150; BP diastolic 52–76; PULSE 73–85; RESP 18–20
[2016-07-23] MEDS: ALBUTEROL/IPRATROPIUM (NEB) 3 ML AMP NEB SCH ×5 (01:19→20:43)
[2016-07-23 04:10] LABS: PROTEIN, TOTAL 6.4 g/dL (6.1-8.1)
--- NOTE | 2016-07-23 04:27 | CONS ---
DATE OF ADMISSION: 07/21/2016 DATE OF CONSULTATION: 07/22/2016 REASON FOR CONSULTATION: Acute kidney injury. PHYSICIAN REQUESTING CONSULT: Dr. Whyte. HISTORY OF PRESENT ILLNESS: This is a 65-year-old male with a past medical history of hypertension, dyslipidemia, coronary artery disease, history of ischemic cardiomyopathy with ejection fraction 20 %, history of carotid endarterectomy, history of chronic kidney disease with a baseline renal functi on around 2 mg/dL, who presents to [facility] with complaints of shortness of jaquelin th. The patient, upon arrival in the emergency room, had a chest x-ray which showed findings of pul monary vascular congestion and interstitial edema. The patient, upon arrival, was also noted to be initially hypertensive with systolic pressures in the 160s and 180s. The patient was started on diu retic therapy and admitted to telemetry for further evaluation. The patient was then seen by cardio logist, Dr. Zavala. The patient is clinically improved with diuretic therapy as he is less shor t of breath. In terms of the patient's renal history, the patient has a baseline creatinine around 2 mg/dL. Prev ious creatinine last year was 0.9 mg/dL, but the patient did suffer from contrast-associated nephrop athy as well as had multiple hemodynamic insults. The patient's creatinine appears to have settled around 2 mg/dL. During this hospital course, the patient's creatinine has increased to 3.3 mg/dL wi th diuretic therapy and after being given ANNE inhibitor. Additionally, the patient has had hemodyna milly fluctuations during the hospital course. The patient denies any rashes, any frothy urine, or an y hemoptysis or hematochezia. PAST MEDICAL HISTORY: As stated above, history of CKD, ischemic cardiomyopathy, hypertension, dysli pidemia. PAST SURGICAL HISTORY: Status post CABG, status post carotid endarterectomy, status post PCI of the LAD, status post AICD placement. SOCIAL HISTORY: Positive for smoking in the past. FAMILY HISTORY: Noncontributory. ALLERGIES: NO KNOWN DRUG ALLERGIES. MEDICATIONS: The patient's medications have been reviewed. REVIEW OF SYSTEMS: A 14-point review of systems was conducted. Pertinent positives as stated in HP I, otherwise negative. PHYSICAL EXAMINATION: VITAL SIGNS: Blood pressure is 132/65, respirations 16, pulse 85, temperature 98.2. I's AND O'S: The patient had 200 mL in with 1500 out. HEENT: Head is normocephalic. NECK: Supple. HEART: Regular rate. LUNGS: Show diminished breath sounds at base. Positive crackles. ABDOMEN: Soft, nontender to palpation. No rebound or guarding. EXTREMITIES: Negative for clubbing, cyanosis, no edema. DERMATOLOGIC: No rashes. MUSCULOSKELETAL: No joint effusions. NEUROLOGIC: No change in exam. LABORATORY DATA: Shows sodium 142, potassium 4.6, chloride 105, BUN 49, creatinine 3.33. White cou nt 12.5, hemoglobin 12.2, hematocrit 39.2, platelet count 534. IMAGING STUDIES: The patient's chest x-ray was reviewed and shows findings of moderate pulmonary va scular congestion and interstitial edema. Urinalysis pending. ASSESSMENT AND PLAN: This is a 65-year-old male who presents with: 1. Nonoliguric acute kidney injury on top of chronic kidney disease, stage IIIB, with baseline crea tinine around 2.4 mg/dL. Etiology of acute kidney injury is likely due to hemodynamics, diuretic th erapy, ANNE inhibitor effect. I do agree with our habitat conservation planner colleagues that renal artery stenosis is a consideration given the patient's multiple hospital admissions with pulmonary congestion/flash pulmonary edema. Additionally, the patient's arterial renal ultrasound does show evidence of signi ficant renal artery stenosis of approximately 30 to 50%. There is no hemodynamic stenosis noted in the left renal arterial system. These findings would be consistent with unilateral renal artery lashawn nosis which can present with episodes of flash pulmonary edema, uncontrolled hypertension. Definiti ve diagnosis would require CT angiogram; however, given the patient's acute kidney injury, would def er contrast exposure at this time. If renal function is able to return back to previous baseline, w ould consider CT angiogram if contrast exposure can be limited to no more than 50 mL of contrast. I f, however, CT angiogram is unable to be performed, would consider nuclear study for captopril renog tone. Plan, at this point, would be to check urine electrolytes, check UA with microanalysis to see if there is any evidence of tubular injury. We will deescalate diuretic therapy given worsening sarah al function. Agree with holding ANNE inhibitor. Would otherwise continue supportive care and renall y dose all meds. 2. Acute congestive heart failure exacerbation. Etiology, as stated above, may be secondary to sarah al artery stenosis causing flash pulmonary edema. We will continue medical management per cardiolog y colleagues. Diuretic therapy has been deescalated due to worsening renal function. We will monit or closely. 3. Hypertension. Etiology is secondary to possible renal artery stenosis. The patient's blood pre ssure has been fluctuating. At this point, would continue current blood pressure regimen, avoid sig nificant hemodynamic fluctuations. 4. Anemia. Continue to monitor hemoglobin and hematocrit levels. 5. Mineral bone disorder. Monitor calcium and phosphorus levels. No need for phosphate binders. 6. Arrhythmia. The patient is currently on amiodarone. Continue. 7. Status post ICD placement. 8. History of coronary artery disease status post coronary artery bypass graft. Continue current m edical management. 9. History of peripheral vascular disease. Continue current medical management. 10. Hyperuricemia, mild. We will continue to monitor. 11. Leukocytosis. Underlying etiology is unclear. Hematology has been consulted. Workup is tea cardenas. Thank you, Dr. Whyte, for this interesting consultation. It will be a pleasure to follow the patient with you throughout the hospital course. Dictated By: MARILYN SANTOS/LUIS Conf#: [id number] DID#: [id number]
[2016-07-23 06:41] LABS: ADD SCAN DIFF NO
[2016-07-23 06:51] LABS: CALCIUM 9.3 mg/dl (8.4-10.2); CREATININE 3.27 mg/dl (0.61-1.24); POTASSIUM 4.2 mmol/L (3.5-5.1)
[2016-07-23 06:53] LABS: BASOPHIL # 0.1 10^3/ul (0.0-0.1); BASOPHILS % 0.7 % (0.0-2.0); EOSINOPHILS # 0.3 10^3/ul (0.0-0.5); EOSINOPHILS % 2.7 % (0.0-7.0); HEMATOCRIT 35.9 % (42.0-52.0); HEMOGLOBIN 11.3 g/dl (14.0-18.0); LYMPHOCYTES # 2.3 10^3/ul (0.8-2.9); LYMPHOCYTES % 20.4 % (15.0-51.0); MEAN CORPUSCULAR HEMOGLOBIN 28.6 pg (29.0-33.0); MEAN CORPUSCULAR HGB CONC 31.5 g/dl (32.0-37.0); MEAN CORPUSCULAR VOLUME 90.9 fl (82.0-101.0); MEAN PLATELET VOLUME 11.5 fl (7.4-10.4); MONOCYTE # 1.1 10^3/ul (0.3-0.9); NEUTROPHIL # 7.2 10^3/ul (1.6-7.5); NEUTROPHILS % 64.9 % (39.0-77.0); PLATELET COUNT 486 10^3/UL (140-415); RED BLOOD COUNT 3.95 10^6/ul (4.70-6.10); RED CELL DISTRIBUTION WIDTH 13.8 % (11.5-14.5); WHITE BLOOD COUNT 11.2 10^3/ul (4.8-10.8)
[2016-07-23] MEDS: CEFEPIME 1GM/50 ML IVPB SCH (08:52)
[2016-07-23] MEDS: CLOPIDOGREL 75 MG TAB PO SCH (08:54)
[2016-07-23] MEDS: ASPIRIN 81 MG TAB PO SCH (08:54)
[2016-07-23] MEDS: FAMOTIDINE 20 MG TAB PO SCH (08:55)
[2016-07-23] MEDS: AMIODARONE 200 MG TAB PO SCH (08:55)
[2016-07-23] MEDS: EZETIMIBE 10 MG TAB PO SCH (08:55)
[2016-07-23] MEDS: HEPARIN 5,000 UNIT/0.5 ML VIAL SC SCH ×2 (08:58→21:12)
[2016-07-23] MEDS: ISOSORBIDE DINITRATE 10 MG TAB PO SCH ×3 (09:02→21:10)
--- NOTE | 2016-07-23 09:45 | PN ---
DATE: 07/23/2016 HEMATOLOGY ONCOLOGY PROGRESS NOTE SUBJECTIVE: Mr. Vance is unchanged. He denies shortness breath or cough. He has no chest pain. OBJECTIVE VITAL SIGNS: Temperature 98.6, pulse 77 per minute and regular, respirations 20, blood pressure 95/ 60, pulse oximetry is 99% on room air. SKIN: No ecchymosis, no petechiae or rashes. HEENT: No mucosal lesions. No scleral icterus. NECK: Supple with no jugular venous distention or thyroid enlargement. CHEST: No rhonchi, wheezes, rales, or rubs. There is a sternotomy scar present. There is an impla nted cardiac device in the left anterior chest. ABDOMEN: Soft, no masses, no ascites. EXTREMITIES: Good range of motion. No clubbing, edema, or cyanosis. No palpable cords or Homans s ign. IMAGING DATA: The patient did have an abdominal ultrasound yesterday which demonstrated a normal si zed spleen. LABORATORY DATA: White count 11,200 with an absolute neutrophil count of 7200, absolute lymphocyte count of 2300. Hemoglobin 11.3, hematocrit 35.9, and platelet count 486,000. LDH is 618. Uric aci d 8.0. ASSESSMENT: 1. Leukocytosis and thrombocytosis which appear to be resolving, probably reactive. 2. Right upper lobe mass, etiology unknown. PLAN: I have reviewed the CT scan done at [facility] on 05/15/2016. This did show a lobulate d right upper lobe mass that was 6 x 4.8 x 5.6 cm. There was no associated mediastinal adenopathy n oted. No other pulmonary parenchymal lesions. Evaluation for myeloproliferative neoplasm is pending, but I do not feel this will be productive. I am still concerned about the left upper lobe mass. Further investigation I do feel is warranted. If the patient will not allow a biopsy, then perhaps a PET CT scan done as an outpatient will at [facility] help to clarify whether this is hypermetabolic and therefore likely a malignant process. Dictated By: MICHELLE CHAKRABORTY MD, SR/NTS Conf#: [id number] DID#: [id number]
--- NOTE | 2016-07-23 09:49 | PN ---
DATE: SUBJECTIVE: The patient is stable, no acute events overnight. The patient has no shortness of jaquelin th, no nausea, no vomiting. OBJECTIVE: VITAL SIGNS: Blood pressure is 93/52, respirations 20, pulse 62, temperature 98.6. HEENT: Head is normocephalic. Pupils are reactive to light. NECK: Supple. HEART: Regular rate. LUNGS: Show diminished breath sounds at the bases with positive crackles. ABDOMEN: Soft, nontender to palpation without rebound or guarding. EXTREMITIES: Negative for clubbing, cyanosis, no edema. DERMATOLOGIC: No rashes. MUSCULOSKELETAL: No joint effusions. NEUROLOGIC: No focal deficits. LABORATORY DATA: Shows sodium 137, potassium 4.2, hematocrit 107, BUN 50, creatinine 3.27. White c ount 11.2, hemoglobin 11.3, hematocrit 35.9, platelet count is 486. The patient's urinalysis is sti ll pending. ASSESSMENT AND PLAN: 1. Nonoliguric acute kidney injury on top of chronic kidney disease, stage III, with a previous [facility] creatinine between 2 to 2.5 mg/dL. Etiology of current acute kidney injury appears to be seco ndary to hemodynamics with possible tubular injury. The possibility of renal artery stenosis is a c onsideration given the patient's previous hospital admissions with flash pulmonary edema. The patie nt's renal ultrasound also shows evidence of renal artery stenosis of 30 to 50%. Further definitive testing of renal artery stenosis would require CT angio; however, that is a contraindication as the patient is currently in acute kidney injury. If there is no significant improvement in renal funct ion, would consider doing a nuclear scan. At this point, would continue current treatment plan. I agree with holding diuretic therapy. We will follow up UA with microanalysis to see if there is any evidence of coarse granular casts. Would also monitor blood pressures closely, avoiding hypotensiv e episodes. Would recommend to maintain MAPS greater than 65. We will otherwise continue to monito r. 2. Right renal artery stenosis. As stated above, the patient may have significant renal vascular h ypertension given recurrent episodes of pulmonary edema. The patient is unable to get a CT angio at this time due to acute kidney injury. We will consider ordering possible nuclear scan tomorrow for evaluation. We will monitor closely, avoiding ANNE inhibitor. 3. Acute congestive heart failure exacerbation. Etiology may be related to renal artery stenosis c ausing flash pulmonary edema. The patient appears near euvolemic. Diuretic therapy has been held d ue to worsen renal function. We will continue to monitor closely. 4. Hypertension. Etiology is multifactorial in conjunction with possible renal artery stenosis. C ontinue current blood pressure regimen with placement of parameters on blood pressure medications to avoid hypotensive episodes. Monitor closely. 5. Anemia. Continue to monitor hemoglobin and hematocrit levels. 6. Mineral bone disorder. Continue to monitor calcium and phosphorus levels. 7. Arrhythmia. The patient is on amiodarone. Continue 8. Status post ICD placement. 9. Coronary artery disease, status post coronary artery bypass graft. Continue medical management. 10. History of peripheral vascular disease. 11. Hyperuricemia, mild. Continue to monitor. 12. Leukocytosis, workup ongoing. Dictated By: MARILYN SANTOS/LUIS Conf#: [id number] DID#: [id number]
--- NOTE | 2016-07-23 10:54 | RADRPT ---
PROCEDURE: XR Chest. CLINICAL INDICATION: CHF. TECHNIQUE: PA and Lateral views of the chest were obtained. COMPARISON: Chest x-ray 05/22/2016. FINDINGS: The soft tissues are normal. A mediastinotomy was performed. Degenerative osteophytes are noted in the thoracic spine. The heart is enlarged. The cardiomediastinal silhouette and hilar structures are normal. The pulmonary vasculature is equilibrated. There are vascular calcifications in the aort ic arch. Faint perihilar interstitial infiltrates are noted in the bases of the lungs. There is a s oft tissue mass above the right hilum which is unchanged. There is a dual chamber cardiac pacemaker with prior mediastinotomy. The costophrenic angles are normal. IMPRESSION: 1. A 5.4 cm density suspicious for a mass is identified above the right hilum. A contrast-enhanced C T scan of the chest with IV contrast is recommended for further evaluation. 2. Cardiomegaly with mild pulmonary venous obstruction. 3. Atherosclerosis of the aortic arch. 4. Dual chamber cardiac pacemaker with evidence of prior mediastinotomy. RPTAT:AAJJ Physician Mariam Date Time Electronically viewed and signed by Physician Mariam on 07/23/2016 10:54 JM/
--- NOTE | 2016-07-23 11:09 | CONS ---
Date/Time of Note Date/Time of Note DATE: 07/23/16 TIME: 11:06 Assessment/Plan Assessment/Plan Chief Complaint/Hosp Course Acute on chronic systolic/diastolic heart failure: Pt presented with sudden onset SOB with evidence of pulm edema on CXR as well as HTN up to 180s. This is now his third identical admission. What is very interesting is that he does not have a progression of his symptoms, his weight has been stable, and he was walking 1 mile the am of his presentation, his JVP is flat and his CXR shows significant edema. This is considering for flash pulmonary edema in the setting of his sudden onset HTN. He has right renal artery stenosis by ultrasound but 30 -50%. Will need another test for better evaluation, ?nuclear med test since renal dysfunction. Acute on chronic renal failure: baseline recently ~2.2-2.8. Up to 3.3, now stable HTN emergency: SBP on admission was 180, then dropped to the 80s (no medication documented but pt notes he took extra of his home meds when his BP was high). BP now controlled but fluctuating CAD s/p CABG/PCI: initial trop negative. Doubt ischemic etiology Ischemic cardiomyopathy: EF ~20-25%. s/p ICD for secondary prevention h/o MMVT: on amiodarone 100mg per EP recs PVD: s/p CEA and has claudication and lower extremity disease as well -appreciate nephrology consult. -nuclear scan for renal artery stenosis assessment tomorrow -possible renal angiogram +/- intervention pending more information -hold lasix as euvolemic -continue ASA, plavix -isordil 10mg -hydralazine 25mg -continue coreg Problems: Consultation Date/Type/Reason Admit Date/Time Jul 21, 2016 at 01:34 Initial Consult Date 07/21/16 Type of Consultation: Cardiology Referring Provider: SANJUANITA SPAULDING 24 HR Interval Summary Free Text/Dictation Cr stabilized now. No complaints. Walked around unit without problems. BP has been fluctuating. Exam/Review of Systems Vital Signs Vitals Vital Signs Date Time Temp Pulse Resp B/P Pulse Ox O2 Delivery O2 Flow Rate FiO2 07/23/16 10:31 96 21 07/23/16 10:30 71 16 07/23/16 07:39 98.6 93/52 07/22/16 20:00 Nasal Cannula 07/22/16 08:00 2.0 Intake and Output 07/22/16 07/22/16 07/23/16 15:00 23:00 07:00 Intake Total 200 ml 1600 ml 800 ml Output Total 1500 ml 300 ml 850 ml Balance -1300 ml 1300 ml -50 ml Exam Constitutional: alert, oriented Psych: no complaints Head: atraumatic, normocephalic Neck: No jvd Respiratory: clear to auscultation, No crackles/rales Cardiovascular: regular rate and rhythm, No edema Gastrointestinal: non-tender, soft Neurological: nl mental status, nl speech Results Result Diagram: 07/23/16 0530 07/23/16 0530 Results 24 hrs Laboratory Tests Test 07/23/16 05:30 White Blood Count 11.2 H Red Blood Count 3.95 L Hemoglobin 11.3 L Hematocrit 35.9 L Mean Corpuscular Volume 90.9 Mean Corpuscular Hemoglobin 28.6 L Mean Corpuscular Hemoglobin Concent 31.5 L Red Cell Distribution Width 13.8 Platelet Count 486 H Mean Platelet Volume 11.5 H Neutrophils % 64.9 Lymphocytes % 20.4 Monocytes % 10.0 Eosinophils % 2.7 Basophils % 0.7 Nucleated Red Blood Cells % 0.0 Neutrophils # 7.2 Lymphocytes # 2.3 Monocytes # 1.1 H Eosinophils # 0.3 Basophils # 0.1 Nucleated Red Blood Cells # 0.0 Sodium Level 137 Potassium Level 4.2 Chloride Level 107 Carbon Dioxide Level 23 Anion Gap 11 # Blood Urea Nitrogen 50 H Creatinine 3.27 H Glucose Level 97 Calcium Level 9.3 Medications Medications Current Medications Metoclopramide HCl (Reglan) 10 mg Q6H PRN IV NAUSEA AND/OR VOMITING; Start at 02:00 Nitroglycerin (Nitroglycerin (Sl Tab) 0.4 Mg) 1 tab Q5M PRN SL CHEST PAIN; Start 07/21/16 at 02:00 Acetaminophen (Tylenol Liquid) 650 mg Q6H PRN PO PAIN LEVEL 1-3 OR FEVER; Start 07/21/16 at 02:00 Oxycodone/ Acetaminophen (Percocet (5/ 325)) 1 tab Q6H PRN PO PAIN LEVEL 4-6; Start 07/21/16 at 02:00 Morphine Sulfate (morphine) 2 mg Q4H PRN IV PAIN LEVEL 7-10; Start 07/21/16 at 02:00 Lorazepam (Ativan) 0.5 mg Q6 PRN IV ANXIETY; Start 07/21/16 at 02:00 Famotidine (Pepcid) 20 mg DAILY PO Last administered on 07/23/16 08:55; Admin Dose 20 MG; Start 07/21/16 at 09:00 Heparin Sodium (Porcine) (Heparin (5000 Units/0.5 ml)) 5,000 unit Q12 SC Last administered on 07/23/16 08:58; Admin Dose 5,000 UNIT; Start 07/21/16 at 09:00 Amiodarone HCl (Cordarone) 100 mg DAILY PO Last administered on 07/23/16 08:55 ; Admin Dose 100 MG; Start 07/21/16 at 09:00 Aspirin (Aspirin) 81 mg DAILY PO Last administered on 07/23/16 08:54; Admin Dose 81 MG; Start 07/21/16 at 09:00 Atorvastatin Calcium (Lipitor) 80 mg QHS PO ; Start 07/21/16 at 21:00 Carvedilol (Coreg) 12.5 mg BID PO Last administered on 07/23/16 09:01; Admin Dose 12.5 MG; Start 07/21/16 at 09:00 EZETIMIBE (Zetia) 10 mg DAILY PO Last administered on 07/23/16 08:55; Admin Dose 10 MG; Start 07/21/16 at 09:00 Hydralazine HCl (Apresoline) 25 mg TID PO Last administered on 07/23/16 09:02 ; Admin Dose 25 MG; Start 07/21/16 at 13:00 Clopidogrel Bisulfate (plaVIX) 75 mg DAILY PO Last administered on 07/23/16 08 :54; Admin Dose 75 MG; Start 07/21/16 at 10:00 Isosorbide Dinitrate 10 mg 10 mg TID PO Last administered on 07/23/16 09:02; Admin Dose 10 MG; Start 07/22/16 at 09:00 Cefepime HCl (Maxipime 1gm/50 ml (Pmx)) 50 ml @ 100 mls/hr Q24H IVPB Last administered on 07/23/16 08:52; Admin Dose 100 MLS/HR; Start 07/23/16 at 09:00 KOSHKARYAN,EMILY Jul 23, 2016 11:09
[2016-07-23 11:32] LABS: ADD UMIC NO; URINE BILIRUBIN (Dip) NEGATIVE (NEGATIVE); URINE BLOOD (Dip) NEGATIVE (NEGATIVE); URINE COLOR LT. YELLOW (YELLOW); URINE GLUCOSE (Dip) NEGATIVE (NEGATIVE); URINE KETONES (Dip) NEGATIVE (NEGATIVE); URINE LEUKOCYTE ESTERASE (Dip) NEGATIVE (NEGATIVE); URINE NITRITE (Dip) NEGATIVE (NEGATIVE); URINE TOTAL PROTEIN (Dip) NEGATIVE (NEGATIVE); URINE UROBILINOGEN (Dip) 0.2 E.U./dL (0.1-1.0)
--- NOTE | 2016-07-23 15:18 | PN ---
Date/Time of Note Date/Time of Note DATE: 07/23/16 TIME: 15:14 Assessment/Plan VTE Prophylaxis VTE Prophylaxis Intervention: ambulation, SCD's Lines/Catheters IV Catheter Type (from Nrs): Saline Lock Urinary Cath still in place: No Assessment/Plan Assessment/Plan 65 yo M managed for the following 1. Acute on chronic systolic/diastolic heart failure: 2. HTN emergency:improved 3. CAD s/p CABG/PCI 4. Ischemic cardiomyopathy: EF ~20-25% S/p ICD for secondary prevention 5. SIRS with bone marrow hyperactivity: likely reactive/ improved 6. DONNY on CKD likely 2/2 diuretics 7. PVD 8. Prev Tobacco use 9. R sided Renal artery stenosis 10. Hyperuricemia PLAN: * NM scan to eval renal aa stenosis is planned for tomorrow * Patient will benefit from outpt PET scan per oncology, however he may not consent to this * continue to monitor electrolytes * monitor uric acid per renal * Continue supportive care Subjective 24 Hr Interval Summary Constitutional: no complaints Exam/Review of Systems Vital Signs Vitals Vital Signs Date Time Temp Pulse Resp B/P Pulse Ox O2 Delivery O2 Flow Rate FiO2 07/23/16 14:17 93 21 07/23/16 14:16 70 18 07/23/16 11:58 98.3 104/55 07/22/16 20:00 Nasal Cannula 07/22/16 08:00 2.0 Intake and Output 07/22/16 07/22/16 07/23/16 15:00 23:00 07:00 Intake Total 200 ml 1600 ml 800 ml Output Total 1500 ml 300 ml 850 ml Balance -1300 ml 1300 ml -50 ml Exam Constitutional: alert, oriented Psych: nl mood/affect Head: atraumatic, normocephalic Eyes: PERRL ENMT: mucosa pink and moist Neck: supple Respiratory: diminished breath sounds, No crackles/rales, No wheezing Cardiovascular: regular rate and rhythm, No murmurs/extra sounds Gastrointestinal: bowel sounds, non-tender, soft Extremities: No edema Neurological: nl mental status, nl speech Results Result Diagram: 07/23/16 0530 07/23/16 0530 Results 24 hrs Laboratory Tests Test 07/23/16 05:30 07/23/16 09:00 White Blood Count 11.2 H Red Blood Count 3.95 L Hemoglobin 11.3 L Hematocrit 35.9 L Mean Corpuscular Volume 90.9 Mean Corpuscular Hemoglobin 28.6 L Mean Corpuscular Hemoglobin Concent 31.5 L Red Cell Distribution Width 13.8 Platelet Count 486 H Mean Platelet Volume 11.5 H Neutrophils % 64.9 Lymphocytes % 20.4 Monocytes % 10.0 Eosinophils % 2.7 Basophils % 0.7 Nucleated Red Blood Cells % 0.0 Neutrophils # 7.2 Lymphocytes # 2.3 Monocytes # 1.1 H Eosinophils # 0.3 Basophils # 0.1 Nucleated Red Blood Cells # 0.0 Sodium Level 137 Potassium Level 4.2 Chloride Level 107 Carbon Dioxide Level 23 Anion Gap 11 # Blood Urea Nitrogen 50 H Creatinine 3.27 H Glucose Level 97 Calcium Level 9.3 Urine Color LT. YELLOW Urine Clarity CLEAR Urine pH 5.5 Urine Specific Lang[place] 1.025 Urine Ketones NEGATIVE Urine Nitrite NEGATIVE Urine Bilirubin NEGATIVE Urine Urobilinogen 0.2 E.U./dL Urine Leukocyte Esterase NEGATIVE Urine Hemoglobin NEGATIVE Urine Random Creatinine 212.62 Urine Random Sodium 54 Urine Glucose NEGATIVE Urine Total Protein 18.0 H Medications Medications Current Medications Metoclopramide HCl (Reglan) 10 mg Q6H PRN IV NAUSEA AND/OR VOMITING; Start at 02:00 Nitroglycerin (Nitroglycerin (Sl Tab) 0.4 Mg) 1 tab Q5M PRN SL CHEST PAIN; Start 07/21/16 at 02:00 Acetaminophen (Tylenol Liquid) 650 mg Q6H PRN PO PAIN LEVEL 1-3 OR FEVER; Start 07/21/16 at 02:00 Oxycodone/ Acetaminophen (Percocet (5/ 325)) 1 tab Q6H PRN PO PAIN LEVEL 4-6; Start 07/21/16 at 02:00 Morphine Sulfate (morphine) 2 mg Q4H PRN IV PAIN LEVEL 7-10; Start 07/21/16 at 02:00 Lorazepam (Ativan) 0.5 mg Q6 PRN IV ANXIETY; Start 07/21/16 at 02:00 Famotidine (Pepcid) 20 mg DAILY PO Last administered on 07/23/16 08:55; Admin Dose 20 MG; Start 07/21/16 at 09:00 Heparin Sodium (Porcine) (Heparin (5000 Units/0.5 ml)) 5,000 unit Q12 SC Last administered on 07/23/16 08:58; Admin Dose 5,000 UNIT; Start 07/21/16 at 09:00 Amiodarone HCl (Cordarone) 100 mg DAILY PO Last administered on 07/23/16 08:55 ; Admin Dose 100 MG; Start 07/21/16 at 09:00 Aspirin (Aspirin) 81 mg DAILY PO Last administered on 07/23/16 08:54; Admin Dose 81 MG; Start 07/21/16 at 09:00 Atorvastatin Calcium (Lipitor) 80 mg QHS PO ; Start 07/21/16 at 21:00 Carvedilol (Coreg) 12.5 mg BID PO Last administered on 07/23/16 09:01; Admin Dose 12.5 MG; Start 07/21/16 at 09:00 EZETIMIBE (Zetia) 10 mg DAILY PO Last administered on 07/23/16 08:55; Admin Dose 10 MG; Start 07/21/16 at 09:00 Hydralazine HCl (Apresoline) 25 mg TID PO Last administered on 07/23/16 09:02 ; Admin Dose 25 MG; Start 07/21/16 at 13:00 Clopidogrel Bisulfate (plaVIX) 75 mg DAILY PO Last administered on 07/23/16 08 :54; Admin Dose 75 MG; Start 07/21/16 at 10:00 Isosorbide Dinitrate 10 mg 10 mg TID PO Last administered on 07/23/16 09:02; Admin Dose 10 MG; Start 07/22/16 at 09:00 Cefepime HCl (Maxipime 1gm/50 ml (Pmx)) 50 ml @ 100 mls/hr Q24H IVPB Last administered on 07/23/16 08:52; Admin Dose 100 MLS/HR; Start 07/23/16 at 09:00 SANJUANITA SPAULDING Jul 23, 2016 15:18
[2016-07-23] MEDS: ATORVASTATIN 80 MG TAB PO SCH (21:09)
[2016-07-23] MEDS: ZOLPIDEM 5 MG TAB PO PRN ×2 (22:08→22:09)
[2016-07-24] VITALS (15 sets, daily range): BP systolic 116–168; BP diastolic 59–78; PULSE 69–79; RESP 18–20
[2016-07-24] MEDS: ALBUTEROL/IPRATROPIUM (NEB) 3 ML AMP NEB SCH ×6 (01:00→20:36)
[2016-07-24 06:53] LABS: ADD SCAN DIFF NO
[2016-07-24 07:07] LABS: BASOPHIL # 0.1 10^3/ul (0.0-0.1); BASOPHILS % 0.8 % (0.0-2.0); EOSINOPHILS # 0.5 10^3/ul (0.0-0.5); EOSINOPHILS % 4.1 % (0.0-7.0); HEMOGLOBIN 11.6 g/dl (14.0-18.0); LYMPHOCYTES # 2.4 10^3/ul (0.8-2.9); LYMPHOCYTES % 21.8 % (15.0-51.0); MEAN CORPUSCULAR HEMOGLOBIN 29.1 pg (29.0-33.0); MEAN CORPUSCULAR HGB CONC 32.2 g/dl (32.0-37.0); MEAN CORPUSCULAR VOLUME 90.2 fl (82.0-101.0); MEAN PLATELET VOLUME 11.5 fl (7.4-10.4); MONOCYTE # 1.3 10^3/ul (0.3-0.9); MONOCYTES % 11.7 % (0.0-11.0); NEUTROPHIL # 6.7 10^3/ul (1.6-7.5); NEUTROPHILS % 60.5 % (39.0-77.0); PLATELET COUNT 533 10^3/UL (140-415); RED BLOOD COUNT 3.99 10^6/ul (4.70-6.10); RED CELL DISTRIBUTION WIDTH 13.7 % (11.5-14.5); WHITE BLOOD COUNT 11.1 10^3/ul (4.8-10.8)
[2016-07-24 07:18] LABS: CALCIUM 9.5 mg/dl (8.4-10.2); CREATININE 3.02 mg/dl (0.61-1.24); POTASSIUM 4.5 mmol/L (3.5-5.1)
[2016-07-24 07:23] LABS: MAGNESIUM 2.4 mg/dl (1.7-2.5); PHOSPHORUS 4.2 mg/dl (2.5-4.9)
--- NOTE | 2016-07-24 09:37 | PN ---
DATE: 07/24/2016 SUBJECTIVE: The patient has no complaint. Denies chest pain, cough. Denies shortness of breath. He states he has had no hemoptysis. OBJECTIVE: VITAL SIGNS: Temperature 98, pulse 78 per minute and regular, respirations 18, blood pressure 147/6 7, pulse oximetry 98% on room air. SKIN: No ecchymosis, no petechiae or rashes. HEENT: No mucosal lesions. No scleral icterus. NECK: Supple. No jugular venous distention or thyroid enlargement. CHEST: Clear to auscultation and percussion. No rhonchi, wheezes, rales or rubs. There is a currie otomy scar present. There is an implanted cardiac device in the left anterior chest. NODES: No palpable lymphadenopathy. ABDOMEN: Soft, no masses, no ascites. EXTREMITIES: Good range of motion, no clubbing, edema or cyanosis. No palpable cords or Homans sig n. LABORATORY: White count 11,100 with an absolute neutrophil count of 6700, hemoglobin 11.6, hematocr it 36, and platelet count is 533,000. BUN 54, creatinine 3.02. ASSESSMENT: 1. Arteriosclerotic cardiovascular disease. 2. Leukocytosis and thrombocytosis, resolving. PLAN: Still awaiting results of evaluation including JAK2 mutation and ABRBCL gene rearrangement [facility]. I feel this will be negative given the fact the patient's leukocytosis and thrombocytosis butler s continued to resolve. I have discussed the finding of the right upper lobe mass seen on plain films and also on the CT sca n of May which was done at [facility]. The patient states he was not aware of this and h as never been told that any workup was required. I do feel that a biopsy should be done, although, may initially have a PET CT scan as an outpatient if the patient will follow up. To have further evaluation today regarding possible renal artery stenosis. Dictated By: MICHELLE CHAKRABORTY MD, SR/LUIS Conf#: [id number] DID#: [id number]
[2016-07-24] MEDS: HEPARIN 5,000 UNIT/0.5 ML VIAL SC SCH ×2 (10:00→21:26)
[2016-07-24] MEDS: CLOPIDOGREL 75 MG TAB PO SCH (10:04)
[2016-07-24] MEDS: CEFEPIME 1GM/50 ML IVPB SCH (10:04)
[2016-07-24] MEDS: FAMOTIDINE 20 MG TAB PO SCH (10:05)
[2016-07-24] MEDS: ISOSORBIDE DINITRATE 10 MG TAB PO SCH ×3 (10:05→21:22)
[2016-07-24] MEDS: EZETIMIBE 10 MG TAB PO SCH (10:05)
[2016-07-24] MEDS: ASPIRIN 81 MG TAB PO SCH (10:05)
[2016-07-24] MEDS: AMIODARONE 200 MG TAB PO SCH (10:06)
--- NOTE | 2016-07-24 10:35 | CONS ---
Date/Time of Note Date/Time of Note DATE: 07/24/16 TIME: 10:33 Assessment/Plan Assessment/Plan Chief Complaint/Hosp Course Acute on chronic systolic/diastolic heart failure: Pt presented with sudden onset SOB with evidence of pulm edema on CXR as well as HTN up to 180s. This is now his third identical admission. What is very interesting is that he does not have a progression of his symptoms, his weight has been stable, and he was walking 1 mile the am of his presentation, his JVP is flat and his CXR shows significant edema. This is considering for flash pulmonary edema in the setting of his sudden onset HTN. He has right renal artery stenosis by ultrasound but 30 -50%.Nuclear scan today for evaluation. Acute on chronic renal failure: baseline recently ~2.2-2.8. Up to 3.3, now improving at 3 HTN emergency: SBP on admission was 180, then dropped to the 80s (no medication documented but pt notes he took extra of his home meds when his BP was high). BP now elevated CAD s/p CABG/PCI: initial trop negative. Doubt ischemic etiology Ischemic cardiomyopathy: EF ~20-25%. s/p ICD for secondary prevention h/o MMVT: on amiodarone 100mg per EP recs PVD: s/p CEA and has claudication and lower extremity disease as well -nuclear scan for renal artery stenosis assessment today -possible renal angiogram +/- intervention pending more information -hold lasix as euvolemic (likely restart lasix 20mg daily tomorrow) -continue ASA, plavix -isordil 10mg -increase to hydralazine 50mg -continue coreg 12.5mg BID Problems: Consultation Date/Type/Reason Admit Date/Time Jul 21, 2016 at 01:34 Initial Consult Date 07/21/16 Type of Consultation: Cardiology Referring Provider: SANJUANITA SPAULDING 24 HR Interval Summary Free Text/Dictation BP elevated. No complaints. Awaiting NM scan today. Exam/Review of Systems Vital Signs Vitals Vital Signs Date Time Temp Pulse Resp B/P Pulse Ox O2 Delivery O2 Flow Rate FiO2 07/24/16 10:09 74 168/78 07/24/16 07:22 98.0 18 98 07/24/16 01:42 21 07/23/16 22:49 Nasal Cannula 07/22/16 08:00 2.0 Intake and Output 07/23/16 07/23/16 07/24/16 15:00 23:00 07:00 Intake Total 50 ml 240 ml 700 ml Output Total 250 ml Balance 50 ml -10 ml 700 ml Exam Constitutional: alert, oriented Head: atraumatic, normocephalic Neck: No jvd Respiratory: clear to auscultation, No crackles/rales Cardiovascular: regular rate and rhythm, No edema Gastrointestinal: non-tender, soft Results Result Diagram: 07/24/16 0535 07/24/16 0535 Results 24 hrs Laboratory Tests Test 07/24/16 05:35 White Blood Count 11.1 H Red Blood Count 3.99 L Hemoglobin 11.6 L Hematocrit 36.0 L Mean Corpuscular Volume 90.2 Mean Corpuscular Hemoglobin 29.1 Mean Corpuscular Hemoglobin Concent 32.2 Red Cell Distribution Width 13.7 Platelet Count 533 H Mean Platelet Volume 11.5 H Neutrophils % 60.5 Lymphocytes % 21.8 Monocytes % 11.7 H Eosinophils % 4.1 Basophils % 0.8 Nucleated Red Blood Cells % 0.0 Neutrophils # 6.7 Lymphocytes # 2.4 Monocytes # 1.3 H Eosinophils # 0.5 Basophils # 0.1 Nucleated Red Blood Cells # 0.0 Sodium Level 138 Potassium Level 4.5 Chloride Level 109 Carbon Dioxide Level 23 Anion Gap 11 Blood Urea Nitrogen 54 H Creatinine 3.02 H Glucose Level 97 Calcium Level 9.5 Phosphorus Level 4.2 Magnesium Level 2.4 Medications Medications Current Medications Metoclopramide HCl (Reglan) 10 mg Q6H PRN IV NAUSEA AND/OR VOMITING; Start at 02:00 Nitroglycerin (Nitroglycerin (Sl Tab) 0.4 Mg) 1 tab Q5M PRN SL CHEST PAIN; Start 07/21/16 at 02:00 Acetaminophen (Tylenol Liquid) 650 mg Q6H PRN PO PAIN LEVEL 1-3 OR FEVER; Start 07/21/16 at 02:00 Oxycodone/ Acetaminophen (Percocet (5/ 325)) 1 tab Q6H PRN PO PAIN LEVEL 4-6; Start 07/21/16 at 02:00 Morphine Sulfate (morphine) 2 mg Q4H PRN IV PAIN LEVEL 7-10; Start 07/21/16 at 02:00 Lorazepam (Ativan) 0.5 mg Q6 PRN IV ANXIETY; Start 07/21/16 at 02:00 Famotidine (Pepcid) 20 mg DAILY PO Last administered on 07/24/16 10:05; Admin Dose 20 MG; Start 07/21/16 at 09:00 Heparin Sodium (Porcine) (Heparin (5000 Units/0.5 ml)) 5,000 unit Q12 SC Last administered on 07/24/16 10:00; Admin Dose 5,000 UNIT; Start 07/21/16 at 09:00 Amiodarone HCl (Cordarone) 100 mg DAILY PO Last administered on 07/24/16 10:06 ; Admin Dose 100 MG; Start 07/21/16 at 09:00 Aspirin (Aspirin) 81 mg DAILY PO Last administered on 07/24/16 10:05; Admin Dose 81 MG; Start 07/21/16 at 09:00 Atorvastatin Calcium (Lipitor) 80 mg QHS PO Last administered on 07/23/16 21: 09; Admin Dose 80 MG; Start 07/21/16 at 21:00 Carvedilol (Coreg) 12.5 mg BID PO Last administered on 07/24/16 10:06; Admin Dose 12.5 MG; Start 07/21/16 at 09:00 EZETIMIBE (Zetia) 10 mg DAILY PO Last administered on 07/24/16 10:05; Admin Dose 10 MG; Start 07/21/16 at 09:00 Hydralazine HCl (Apresoline) 25 mg TID PO Last administered on 07/24/16 10:06 ; Admin Dose 25 MG; Start 07/21/16 at 13:00 Clopidogrel Bisulfate (plaVIX) 75 mg DAILY PO Last administered on 07/24/16 10 :04; Admin Dose 75 MG; Start 07/21/16 at 10:00 Isosorbide Dinitrate 10 mg 10 mg TID PO Last administered on 07/24/16 10:05; Admin Dose 10 MG; Start 07/22/16 at 09:00 Cefepime HCl (Maxipime 1gm/50 ml (Pmx)) 50 ml @ 100 mls/hr Q24H IVPB Last administered on 07/24/16 10:04; Admin Dose 100 MLS/HR; Start 07/23/16 at 09:00 Captopril (Capoten) 50 mg ONCE PO ; Start 07/24/16 at 10:30; Stop 07/24/16 at 10 :31 EMILY TREVIÑO Jul 24, 2016 10:35
--- NOTE | 2016-07-24 11:16 | PN ---
DATE: 07/24/2016 SUBJECTIVE: The patient is stable, in no acute distress. No fevers, no chills, no nausea, no vomit ing. OBJECTIVE: VITAL SIGNS: Blood pressure is 147/67, respiration 18, pulse 78, temperature 98.0%. HEENT: Head is normocephalic. Pupils are reactive to light. NECK: Supple. HEART: Regular rate. LUNGS: Show diminished breath sounds at the base, mild crackles. ABDOMEN: Soft, nontender to palpation. No rebound or guarding. EXTREMITIES: Negative for clubbing, cyanosis, no edema. DERMATOLOGIC: No rashes. MUSCULOSKELETAL: No joint effusions. NEUROLOGIC: No change in exam. MEDICATIONS: Reviewed. LABORATORY DATA: White count 11.1, hemoglobin 9.6, hematocrit 36, platelet count 533. Sodium 138, potassium 4.5, chloride 109, BUN 54, creatinine 3.2. ASSESSMENT AND PLAN: 1. Nonoliguric acute kidney injury on top of CKD stage III with previous baseline creatinine betwee n 2 to 2.5 mg/dL. Etiology of current acute kidney injury appears to be hemodynamics, decreased eff ective renal perfusion, quite possible tubular injury. The patient may have underlying significant renal artery stenosis of the right kidney. In fact clinical settings of relative hypotension can ca use worsening renal function, which can be seen when ANNE inhibitors are given or when systolic press ures are lowered significantly. The patient's renal function is slowly recovering after ANNE inhibit or was discontinued and with improved blood pressure. At this point, will continue workup for renal artery stenosis. Will continue supportive care and renally dose all meds, would maintain systolic pressures greater than 125 mmHg to maintain adequate renal perfusion. 2. Right renal artery stenosis. Plan is for further evaluation to see if this has evidence of crit ical stenosis which may be causing the patient's recurrent episodes of CHF and pulmonary edema. The patient is unable to get a CT angio or MRI due to acute kidney injury. Plan is for a captopril nuc [facility] hospital medicine study. I spoke with the radiologist, anticipate the study to be done today. We will follow up results. Otherwise, would continue current treatment plan, avoid significant hemodynamic hypertensive episodes. Continue to avoid ANNE inhibitor. 3. Acute congestive heart failure exacerbation. Etiology may be related to underlying renal artery stenosis. The patient appears euvolemic. Agree with holding diuretic therapy. We will continue t o monitor. 4. Hypertension, possible renal vascular hypertension. We will continue current blood pressure reg imen. Avoid hypotensive episodes in order to maintain adequate renal perfusion. 5. Anemia. Continue to monitor hemoglobin and hematocrit levels. 6. Mineral bone disorder. Continue to monitor calcium and phosphorous levels. 7. Arrhythmia. Patient is on amiodarone. 8. Coronary artery disease, status post coronary artery bypass graft. Continue medical management. 9. History of peripheral vascular disease. 10. Mild hyperuricemia. 11. Leukocytosis. Workup ongoing. Dictated By: MARILYN SANTOS/LUIS Conf#: [id number] DID#: [id number]
--- NOTE | 2016-07-24 11:35 | PN ---
Date/Time of Note Date/Time of Note DATE: 07/24/16 TIME: 11:30 Assessment/Plan VTE Prophylaxis VTE Prophylaxis Intervention: ambulation, SCD's Lines/Catheters IV Catheter Type (from Nrs): Saline Lock Urinary Cath still in place: No Assessment/Plan Chief Complaint/Hosp Course Assessment/Plan: 65 yo M managed for the following 1. Acute on chronic systolic/diastolic heart failure - improving. - continue current meds, f/u CV rec's 2. HTN emergency:improved - monitor 3. CAD s/p CABG/PCI - monitor, CV meds, rec's 4. Ischemic cardiomyopathy: EF ~20-25% S/p ICD for secondary prevention - f/u CV rec's, continue current meds 5. SIRS with bone marrow hyperactivity: likely reactive/ improved 6. DONNY on CKD likely 2/2 diuretics 7. PVD - monitor 8. Prev Tobacco use - benefits counselor on cessation 9. R sided Renal artery stenosis - NM scan to eval renal aa stenosis is planned for today - f/u results. 10. Hyperuricemia - monitor uric acid per renal 11. right upper lobe mass - per Heme/Onc patient will benefit from outpt PET scan per oncology, however he may not consent to this Problems: Subjective 24 Hr Interval Summary Free Text/Dictation Seen by CV team. No acute events overnight. Exam/Review of Systems Vital Signs Vitals Vital Signs Date Time Temp Pulse Resp B/P Pulse Ox O2 Delivery O2 Flow Rate FiO2 07/24/16 11:25 98.1 69 20 116/78 96 07/24/16 01:42 21 07/23/16 22:49 Nasal Cannula 07/22/16 08:00 2.0 Intake and Output 07/23/16 07/23/16 07/24/16 15:00 23:00 07:00 Intake Total 50 ml 240 ml 700 ml Output Total 250 ml Balance 50 ml -10 ml 700 ml Exam Constitutional: alert, oriented Psych: nl mood/affect Head: atraumatic, normocephalic Eyes: PERRL ENMT: mucosa pink and moist Neck: supple Respiratory: diminished breath sounds, No crackles/rales, No wheezing Cardiovascular: regular rate and rhythm, No murmurs/extra sounds Gastrointestinal: bowel sounds, non-tender, soft Extremities: No edema Neurological: nl mental status, nl speech Results Result Diagram: 07/24/16 0535 07/24/16 0535 Results 24 hrs Laboratory Tests Test 07/24/16 05:35 White Blood Count 11.1 H Red Blood Count 3.99 L Hemoglobin 11.6 L Hematocrit 36.0 L Mean Corpuscular Volume 90.2 Mean Corpuscular Hemoglobin 29.1 Mean Corpuscular Hemoglobin Concent 32.2 Red Cell Distribution Width 13.7 Platelet Count 533 H Mean Platelet Volume 11.5 H Neutrophils % 60.5 Lymphocytes % 21.8 Monocytes % 11.7 H Eosinophils % 4.1 Basophils % 0.8 Nucleated Red Blood Cells % 0.0 Neutrophils # 6.7 Lymphocytes # 2.4 Monocytes # 1.3 H Eosinophils # 0.5 Basophils # 0.1 Nucleated Red Blood Cells # 0.0 Sodium Level 138 Potassium Level 4.5 Chloride Level 109 Carbon Dioxide Level 23 Anion Gap 11 Blood Urea Nitrogen 54 H Creatinine 3.02 H Glucose Level 97 Calcium Level 9.5 Phosphorus Level 4.2 Magnesium Level 2.4 Medications Medications Current Medications Metoclopramide HCl (Reglan) 10 mg Q6H PRN IV NAUSEA AND/OR VOMITING; Start at 02:00 Nitroglycerin (Nitroglycerin (Sl Tab) 0.4 Mg) 1 tab Q5M PRN SL CHEST PAIN; Start 07/21/16 at 02:00 Acetaminophen (Tylenol Liquid) 650 mg Q6H PRN PO PAIN LEVEL 1-3 OR FEVER; Start 07/21/16 at 02:00 Oxycodone/ Acetaminophen (Percocet (5/ 325)) 1 tab Q6H PRN PO PAIN LEVEL 4-6; Start 07/21/16 at 02:00 Morphine Sulfate (morphine) 2 mg Q4H PRN IV PAIN LEVEL 7-10; Start 07/21/16 at 02:00 Lorazepam (Ativan) 0.5 mg Q6 PRN IV ANXIETY; Start 07/21/16 at 02:00 Famotidine (Pepcid) 20 mg DAILY PO Last administered on 07/24/16 10:05; Admin Dose 20 MG; Start 07/21/16 at 09:00 Heparin Sodium (Porcine) (Heparin (5000 Units/0.5 ml)) 5,000 unit Q12 SC Last administered on 07/24/16 10:00; Admin Dose 5,000 UNIT; Start 07/21/16 at 09:00 Amiodarone HCl (Cordarone) 100 mg DAILY PO Last administered on 07/24/16 10:06 ; Admin Dose 100 MG; Start 07/21/16 at 09:00 Aspirin (Aspirin) 81 mg DAILY PO Last administered on 07/24/16 10:05; Admin Dose 81 MG; Start 07/21/16 at 09:00 Atorvastatin Calcium (Lipitor) 80 mg QHS PO Last administered on 07/23/16 21: 09; Admin Dose 80 MG; Start 07/21/16 at 21:00 Carvedilol (Coreg) 12.5 mg BID PO Last administered on 07/24/16 10:06; Admin Dose 12.5 MG; Start 07/21/16 at 09:00 EZETIMIBE (Zetia) 10 mg DAILY PO Last administered on 07/24/16 10:05; Admin Dose 10 MG; Start 07/21/16 at 09:00 Clopidogrel Bisulfate (plaVIX) 75 mg DAILY PO Last administered on 07/24/16 10 :04; Admin Dose 75 MG; Start 07/21/16 at 10:00 Isosorbide Dinitrate 10 mg 10 mg TID PO Last administered on 07/24/16 10:05; Admin Dose 10 MG; Start 07/22/16 at 09:00 Cefepime HCl (Maxipime 1gm/50 ml (Pmx)) 50 ml @ 100 mls/hr Q24H IVPB Last administered on 07/24/16 10:04; Admin Dose 100 MLS/HR; Start 07/23/16 at 09:00 Hydralazine HCl (Apresoline) 50 mg TID PO ; Start 07/24/16 at 13:00 MACK FLORES Jul 24, 2016 11:35
--- NOTE | 2016-07-24 16:08 | RADRPT ---
PROCEDURE: Renal scan flow and function study with Captopril CLINICAL INDICATION: 65 -year-old patient with hypertension. TECHNIQUE: Following the oral administration of 50 mg of Captopril, 1 hour later, the patient was given an intravenous injection of 9.7 mCi of Tc-99m MAG3, and renal scan, flow and function study wa s obtained. COMPARISON: No prior renal scans. FINDINGS: Blood flow phase of the study demonstrates normal bolus aortic transit time, mildly to moderately de creased blood flow to both kidneys, worse on the left. Function phase of the study demonstrates mildly to moderately reduced initial extraction of both kid neys, worse on the left. On the delayed views, there is evidence of a moderate cortical retention of activity in both kidneys . Split function is 40 % for the left kidney and 60 % for the right kidney. IMPRESSION: 1. Mildly to moderately reduced flow and function of both kidneys, worse on the left with symmetric al moderate cortical retention of activity in both kidneys. 2. Split function is 40% for the left kidney and 60% for the right kidney. Further evaluation with baseline renogram is recommended. 3. Split function is % for the left kidney and % for the right kidney. RPTAT: HH .Jesi Montes MD, MD Date Time Electronically viewed and signed by .Jesi Montes MD, on 07/24/2016 16:08 .L/
[2016-07-24 17:12] LABS: MICROALBUMIN 2.4 mg/dL
[2016-07-24] MEDS: ATORVASTATIN 80 MG TAB PO SCH (21:21)
[2016-07-24] MEDS: ZOLPIDEM 5 MG TAB PO PRN ×3 (21:22→23:18)
[2016-07-25 00:15] VITALS: PULSE 90
[2016-07-25] MEDS: ALBUTEROL/IPRATROPIUM (NEB) 3 ML AMP NEB SCH ×3 (01:00→09:34)
[2016-07-25 03:44] VITALS: BP 106/56; RESP 19
[2016-07-25 04:02] VITALS: PULSE 69
[2016-07-25 07:03] VITALS: BP 127/60; RESP 20
[2016-07-25 07:27] LABS: ADD SCAN DIFF NO
[2016-07-25 07:42] LABS: BASOPHIL # 0.1 10^3/ul (0.0-0.1); BASOPHILS % 0.8 % (0.0-2.0); EOSINOPHILS # 0.4 10^3/ul (0.0-0.5); EOSINOPHILS % 3.8 % (0.0-7.0); HEMATOCRIT 35.1 % (42.0-52.0); HEMOGLOBIN 11.3 g/dl (14.0-18.0); LYMPHOCYTES # 1.9 10^3/ul (0.8-2.9); MEAN CORPUSCULAR HEMOGLOBIN 29.2 pg (29.0-33.0); MEAN CORPUSCULAR HGB CONC 32.2 g/dl (32.0-37.0); MEAN CORPUSCULAR VOLUME 90.7 fl (82.0-101.0); MEAN PLATELET VOLUME 11.3 fl (7.4-10.4); MONOCYTE # 0.9 10^3/ul (0.3-0.9); MONOCYTES % 10.3 % (0.0-11.0); NEUTROPHIL # 5.8 10^3/ul (1.6-7.5); NEUTROPHILS % 63.1 % (39.0-77.0); PLATELET COUNT 489 10^3/UL (140-415); RED BLOOD COUNT 3.87 10^6/ul (4.70-6.10); RED CELL DISTRIBUTION WIDTH 13.4 % (11.5-14.5); WHITE BLOOD COUNT 9.1 10^3/ul (4.8-10.8)
[2016-07-25 07:53] LABS: CALCIUM 9.6 mg/dl (8.4-10.2); CREATININE 2.89 mg/dl (0.61-1.24); MAGNESIUM 2.3 mg/dl (1.7-2.5); PHOSPHORUS 4.2 mg/dl (2.5-4.9); POTASSIUM 4.4 mmol/L (3.5-5.1)
[2016-07-25 08:32] VITALS: PULSE 77
--- NOTE | 2016-07-25 08:38 | CONS ---
Date/Time of Note Date/Time of Note DATE: 07/25/16 TIME: 08:32 Assessment/Plan Assessment/Plan Chief Complaint/Hosp Course Acute on chronic systolic/diastolic heart failure: Pt presented with sudden onset SOB with evidence of pulm edema on CXR as well as HTN up to 180s. This is now his third identical admission. What is very interesting is that he does not have a progression of his symptoms, his weight has been stable, and he was walking 1 mile the am of his presentation, his JVP is flat and his CXR shows significant edema. This is considering for flash pulmonary edema in the setting of his sudden onset HTN. He has right renal artery stenosis by ultrasound but 30 -50%.Nuclear scan was not very helpful. Per my discussion with Dr. Bailon, the plan is to rule out pheochromocytoma and then proceed with renal angiography (possibly with CO2) as outpt. Acute on chronic renal failure: baseline recently ~2.2-2.8. Up to 3.3, now close to baseline at 2.8 HTN emergency: SBP on admission was 180, then dropped to the 80s (no medication documented but pt notes he took extra of his home meds when his BP was high). BP now controlled CAD s/p CABG/PCI: initial trop negative. Doubt ischemic etiology Ischemic cardiomyopathy: EF ~20-25%. s/p ICD for secondary prevention h/o MMVT: on amiodarone 100mg per EP recs PVD: s/p CEA and has claudication and lower extremity disease as well -ok for d/c -please continue isordil/hydralazine at below doses and d/c lisinopril at home -can resume lasix 20mg daily starting tomorrow -pheo w/u including urine and plasma levels can be arranged as outpt -outpt f/u with Dr. Bailon -f/u with me with previsit labs next week -pt and son are aware and agreeable to plan as above -continue ASA, plavix -isordil 10mg -hydralazine 50mg -continue coreg 12.5mg BID Problems: Consultation Date/Type/Reason Admit Date/Time Jul 21, 2016 at 01:34 Initial Consult Date 07/21/16 Type of Consultation: Cardiology Referring Provider: JASSON,BOLATITO M. 24 HR Interval Summary Free Text/Dictation No o/n events. Pt feels well and would like to go home. Exam/Review of Systems Vital Signs Vitals Vital Signs Date Time Temp Pulse Resp B/P Pulse Ox O2 Delivery O2 Flow Rate FiO2 07/25/16 07:03 98.4 71 20 127/60 95 07/24/16 20:46 21 07/24/16 15:10 Room Air 07/22/16 08:00 2.0 Intake and Output 07/24/16 07/24/16 07/25/16 15:00 23:00 07:00 Intake Total 960 ml 240 ml Balance 960 ml 240 ml Exam Constitutional: alert, oriented Psych: no complaints Head: atraumatic, normocephalic Neck: No jvd Respiratory: clear to auscultation, No crackles/rales Cardiovascular: regular rate and rhythm, No edema Gastrointestinal: non-tender, soft Results Result Diagram: 07/25/16 0640 07/25/16 0640 Results 24 hrs Laboratory Tests Test 07/25/16 06:40 White Blood Count 9.1 Red Blood Count 3.87 L Hemoglobin 11.3 L Hematocrit 35.1 L Mean Corpuscular Volume 90.7 Mean Corpuscular Hemoglobin 29.2 Mean Corpuscular Hemoglobin Concent 32.2 Red Cell Distribution Width 13.4 Platelet Count 489 H Mean Platelet Volume 11.3 H Neutrophils % 63.1 Lymphocytes % 21.0 Monocytes % 10.3 Eosinophils % 3.8 Basophils % 0.8 Nucleated Red Blood Cells % 0.0 Neutrophils # 5.8 Lymphocytes # 1.9 Monocytes # 0.9 Eosinophils # 0.4 Basophils # 0.1 Nucleated Red Blood Cells # 0.0 Sodium Level 137 Potassium Level 4.4 Chloride Level 107 Carbon Dioxide Level 22 Anion Gap 12 Blood Urea Nitrogen 49 H Creatinine 2.89 H Glucose Level 97 Calcium Level 9.6 Phosphorus Level 4.2 Magnesium Level 2.3 Medications Medications Current Medications Metoclopramide HCl (Reglan) 10 mg Q6H PRN IV NAUSEA AND/OR VOMITING; Start at 02:00 Nitroglycerin (Nitroglycerin (Sl Tab) 0.4 Mg) 1 tab Q5M PRN SL CHEST PAIN; Start 07/21/16 at 02:00 Acetaminophen (Tylenol Liquid) 650 mg Q6H PRN PO PAIN LEVEL 1-3 OR FEVER; Start 07/21/16 at 02:00 Oxycodone/ Acetaminophen (Percocet (5/ 325)) 1 tab Q6H PRN PO PAIN LEVEL 4-6; Start 07/21/16 at 02:00 Morphine Sulfate (morphine) 2 mg Q4H PRN IV PAIN LEVEL 7-10; Start 07/21/16 at 02:00 Lorazepam (Ativan) 0.5 mg Q6 PRN IV ANXIETY; Start 07/21/16 at 02:00 Famotidine (Pepcid) 20 mg DAILY PO Last administered on 07/24/16 10:05; Admin Dose 20 MG; Start 07/21/16 at 09:00 Heparin Sodium (Porcine) (Heparin (5000 Units/0.5 ml)) 5,000 unit Q12 SC Last administered on 07/24/16 21:26; Admin Dose 5,000 UNIT; Start 07/21/16 at 09:00 Amiodarone HCl (Cordarone) 100 mg DAILY PO Last administered on 07/24/16 10:06 ; Admin Dose 100 MG; Start 07/21/16 at 09:00 Aspirin (Aspirin) 81 mg DAILY PO Last administered on 07/24/16 10:05; Admin Dose 81 MG; Start 07/21/16 at 09:00 Atorvastatin Calcium (Lipitor) 80 mg QHS PO Last administered on 07/24/16 21: 21; Admin Dose 80 MG; Start 07/21/16 at 21:00 Carvedilol (Coreg) 12.5 mg BID PO Last administered on 07/24/16 21:23; Admin Dose 12.5 MG; Start 07/21/16 at 09:00 EZETIMIBE (Zetia) 10 mg DAILY PO Last administered on 07/24/16 10:05; Admin Dose 10 MG; Start 07/21/16 at 09:00 Clopidogrel Bisulfate (plaVIX) 75 mg DAILY PO Last administered on 07/24/16 10 :04; Admin Dose 75 MG; Start 07/21/16 at 10:00 Isosorbide Dinitrate 10 mg 10 mg TID PO Last administered on 07/24/16 21:22; Admin Dose 10 MG; Start 07/22/16 at 09:00 Cefepime HCl (Maxipime 1gm/50 ml (Pmx)) 50 ml @ 100 mls/hr Q24H IVPB Last administered on 07/24/16 10:04; Admin Dose 100 MLS/HR; Start 07/23/16 at 09:00 Hydralazine HCl (Apresoline) 50 mg TID PO Last administered on 07/24/16 21:22 ; Admin Dose 50 MG; Start 07/24/16 at 13:00 EMILY TREVIÑO Jul 25, 2016 08:37
[2016-07-25] MEDS: CLOPIDOGREL 75 MG TAB PO SCH (08:56)
[2016-07-25] MEDS: CEFEPIME 1GM/50 ML IVPB SCH (08:56)
[2016-07-25] MEDS: FAMOTIDINE 20 MG TAB PO SCH (08:56)
[2016-07-25] MEDS: EZETIMIBE 10 MG TAB PO SCH (08:56)
[2016-07-25] MEDS: ASPIRIN 81 MG TAB PO SCH (08:56)
[2016-07-25] MEDS: AMIODARONE 200 MG TAB PO SCH (08:57)
[2016-07-25] MEDS: ISOSORBIDE DINITRATE 10 MG TAB PO SCH (08:58)
[2016-07-25] MEDS: HEPARIN 5,000 UNIT/0.5 ML VIAL SC SCH (09:00)
--- NOTE | 2016-07-25 10:42 | PDOCDIS ---
Discharge Instructions CONDITION Patient Condition: Stable HOME CARE INSTRUCTIONS: Special Diet: 2 GM NA ACTIVITY: Activity Restrictions: Slowly Increase Activity FOLLOW UP/APPOINTMENTS Appointments Please take your medications as prescribed, and see your doctor in the clinic in 1 week. MACK FLORES Jul 25, 2016 10:42
[2016-07-25] MEDS ORDERED: FURO20TA3 PO (10:44)
[2016-07-25] MEDS ORDERED: HYDR-3672 PO (10:44)
[2016-07-25] MEDS ORDERED: ISOS10TA2 PO (10:44)
[2016-07-25] MEDS ORDERED: LAS20 PO (10:49)
[2016-07-25] MEDS ORDERED: CLOP75TA28 PO (10:49)
--- NOTE | 2016-07-25 10:57 | PN ---
DATE: 07/25/2016 SUBJECTIVE: The patient is stable. The patient had a nuclear medicine scan yesterday which showed reduced kidney function, but on both kidneys, was not overall diagnostic. The patient himself is cl inically stable. No fevers, chills, nausea, vomiting. OBJECTIVE: VITAL SIGNS: Blood pressure 127/60, respirations 20, pulse 71, temperature 98.4. HEENT: Head is normocephalic. NECK: Supple. HEART: Regular rate. LUNGS: Show diminished breath sounds at the base. ABDOMEN: Soft, nontender to palpation. No rebound or guarding. EXTREMITIES: Negative for clubbing, cyanosis, no edema. DERMATOLOGIC: No rashes. MUSCULOSKELETAL: No joint effusions. NEUROLOGIC: No change in exam. MEDICATIONS: Reviewed. LABORATORY DATA: Showed sodium 137, potassium 4.4, chloride 107, BUN 49, creatinine 2.89. White co unt 9.1, hemoglobin 9.3, hematocrit 35.1, platelet count is 489. ASSESSMENT AND PLAN: 1. Nonoliguric acute kidney injury on top of chronic kidney disease stage III with a previous basel ine creatinine around 2 to 2.5 mg/dL. Etiology of current acute kidney injury is secondary to hemod ynamics and decreased effective renal perfusion, secondary to possible renal artery stenosis, possib le tubular injury. The patient's renal function has improved with supportive care after discontinui ng ANNE inhibitor and deescalating diuretic therapy. At this point, would continue current treatment plan. Continue supportive care, renally dose meds, avoid nephrotoxins. 2. Right renal artery stenosis. Patient has had recurrent episodes of flash pulmonary edema concer kerry for possible critical stenosis. A nuclear medicine scan was performed yesterday; however, is n ondiagnostic. At this point, patient is unable to get a CT angiogram or ____ due to acute kidney in jury. Will therefore continue to monitor. The patient will be followed in outpatient setting. May see Dr. Bailon, vascular surgery for further evaluation. As patient may require stenting of his renal arteries, if significant stenosis is determined. Will continue to monitor. 3. Acute congestive heart failure exacerbation. Etiology may be secondary to possible renal artery stenosis. The patient currently is euvolemic. Continue current medical management. 4. Hypertension, possibly secondary. Workup for renal artery stenosis is ongoing. We will also ev aluate for possible pheochromocytoma ____ outpatient setting, although suspicion is low. Monitor cl osely. 5. Anemia. Continue to monitor H and H levels. 6. Mineral bone disorder. Continue to monitor calcium and phosphorus levels. 7. Arrhythmia. The patient is on amiodarone, continue. 8. Coronary artery disease, status post coronary artery bypass graft. Continue medical management. 9. Peripheral vascular disease. Dictated By: MARILYN SANTOS/LUIS Conf#: [id number] DID#: [id number]
[2016-07-25 11:37] VITALS: BP 139/71; RESP 20
--- NOTE | 2016-07-25 11:48 | DS ---
DATE OF ADMISSION: 07/21/2016 DATE OF DISCHARGE: 07/25/2016 HISTORY OF PRESENT ILLNESS: This 65-year-old male originally admitted on 07/21/2014 being discharged home on 07/25/2014. HOSPITAL COURSE: The patient came in initially with shortness of breath. He was found to be having acute on chronic systolic and diastolic heart failure. He was admitted. He also had hypertensive urgency which was treated as well. He was seen by hematology/oncology team, cardiology team and sarah al team during this hospital stay. The patient's shortness breath symptoms improved with cardiac tr eatment. His hypertensive urgency also improved. He has a history of ischemic cardiomyopathy, eject ion fraction of 20% to 25% and he has a history of an AICD placement as well. Over the course of ho spital stay, again, his shortness breath symptoms improved. He was seen by hematology/oncology team because there was a concern of his leukocytosis and thrombocytosis. The patient had this finding of a right upper lobe mass seen on plain films and also on CT scan in May, which was done at [facility]. Apparently, the patient was not aware of this and had never been told about any gavino p that was required. Hematology/Oncology did mention about a biopsy could be done, although the luciano ent may initially need to have a PET scan performed first as an outpatient. Patient was also found with possible findings of a right renal artery stenosis based on the ultrasound, so a nuclear scan w as performed as well, which was inconclusive. It did show mildly to moderately reduced blood flow an d function of both kidneys, worse on the left with symmetrical moderate portal hypertension ____ in both kidneys. Split function of 40% for the left kidney and 60% for the right kidney. In any even t, the recommendations were that patient may need further workup including workup for pheochromocyto ma, which can be done as an outpatient and this was discussed with vascular surgery team, who agreed to that. In any event, the patient's renal failure, improved. High blood pressure was stable. The patient was able to ambulate and tolerate a p.o. diet. There were some adjustments made to the car diac medications and patient will be discharged home today in improved condition. MEDICATIONS: He will be sent with the following medications: 1. Plavix 75 mg daily. 2. Lasix 20 mg twice a day. 3. Hydralazine 50 mg t.i.d. 4. Isordil 10 mg t.i.d. 5. Combivent 20-100, inhaled q.i.d. 6. Amiodarone 100 mg daily. 7. Aspirin 81 mg daily. 8. Atorvastatin 80 mg at bedtime. 9. Coreg 12.5 mg b.i.d. 10. Zetia 10 mg daily. 11. Lasix 20 mg p.o. b.i.d. 12. Ambien 10 mg at bedtime p.r.n. He will need to follow with vascular surgery team in the clinic in the next 1 week and also needs ou tpatient workup for possible pheochromocytoma, he will need a serum and urine metanephrine test perf ormed. FINAL DIAGNOSES: 1. Acute on chronic systolic and diastolic heart failure, improved. 2. Hypertensive urgency, resolved. 3. History of coronary artery disease status post CABG and PCI in the past. 4. History of ischemic cardiomyopathy, ejection fraction 20% to 25%, status post ICD placement in t he past. 5. Systemic inflammatory response syndrome with bone marrow hyperactivity, ____ likely reactive, i mproved. 6. Acute on chronic kidney disease secondary to diuretics, improved. 7. Peripheral vascular disease. 8. History of previous tobacco abuse, counseled on cessation. 9. Right-sided renal artery stenosis. Nuclear medicine scan inconclusive. Needs further workup for possible pheochromocytoma. 10. Hyperuricemia. Stable. 11. Right upper lobe mass. Needs outpatient PET scan as well. Time spent discharging patient 50 minutes. Dictated By: MACK DU Conf#: [id number] DID#: [id number]
--- NOTE | 2016-07-25 12:18 | CONS ---
DATE OF ADMISSION: 07/21/2016 DATE OF CONSULTATION: 07/24/2016 VASCULAR SURGERY CONSULTATION Dear Doctors: Ms. Vance is a 65-year-old gentleman with a significant history of coronary artery disease status p ost CABG and coronary interventions with ejection fraction of 20%. The patient has had multiple int erventions for his coronary aspect; however, has had recent histories of flash pulmonary edema in wh ich he has been admitted to the hospital. Upon my evaluation, the patient also has had history of t his short distance claudication of about 20 to 30 minutes and has had history of chronic kidney dise ase of a creatinine of 2.2. Since his admission, the patient has been doing well and improving from the standpoint of his shortness of breath and his cardiac status. At the moment, the patient denie s shortness of breath, chest pain, nausea, vomiting, fever, or chills. He denies rest pain. John de la paz has had a history of smoking in the past for many years and he quit prior to his CABG. REVIEW OF SYSTEMS: A 12-point review performed and negative except what is mentioned in the HPI. PAST MEDICAL HISTORY: Entails hypertension, coronary artery disease, ischemic cardiomyopathy, eject ion fraction of 20% to 25%, history of atherosclerosis with claudication, chronic kidney disease sta ge III. PAST SURGICAL HISTORY: CABG, coronary intervention, ICD for secondary prevention. FAMILY HISTORY: Positive for hypertension. SOCIAL HISTORY: History of long-term smoking, quit about a year ago, smoked a pack a day. Denies c urrent alcohol, tobacco, or illicit drug use. PHYSICAL EXAMINATION: GENERAL: He is alert and oriented x3, no apparent distress. HEENT: Normocephalic, atraumatic. EOMI. Mucosa moist. NECK: Supple. No carotid bruit. PULMONARY: Coarse breath sounds bilaterally, some crackles at the bases. CARDIOVASCULAR: S1, S2 present. No murmurs. ABDOMEN: Soft, nontender, nondistended. Bowel sounds positive. LOWER EXTREMITIES: Palpable femoral pulse, nonpalpable pedal pulse. Motor, sensory intact. Cap re fill 3 to 4 seconds. ASSESSMENT AND PLAN: 1. Bilateral lower extremity atherosclerosis with claudication: It seems the patient has some comp onent of atherosclerosis; however, has not been life limiting for him and from our standpoint this p atient can continue with his vascular surveillance with our cardiology colleagues and the patient wi ll be followed as an outpatient. 2. Renal artery stenosis: It seems that the patient has had recent episodes of flash pulmonary yasmani ma and the etiology of it is unclear. The patient has been stabilized from a cardiac standpoint. T here may be concern the patient may require further intervention and further evaluation of his renal arteries bilaterally; however, with the patient's chronic kidney disease. We may be limited as to giving contrast. Will plan for the patient to undergo urine workup for VMA and making sure that the re are no adrenal effects as the cause and will plan for a renal artery angiogram with CO2 gas and i ntravascular ultrasound. At the moment continue with vascular optimization (BP meds, diet, nutrition, exercise, sugar control , antiplatelets). Discussed findings, plan, and management with the patient and his family at the bedside with a certi fied customer acquisition specialist and they understand. We will continue with his follow up with our nephrology colleagues for his workup. We will schedule the patient in the coming week for his angiogram. Thank you for allowing us to partake in the care of your patient. Please call with any questions. Dictated By: STEPHANIE VERA/LUIS Conf#: [id number] DID#: [id number]
[2016-07-25 23:38] LABS: ALBUMIN 3.7 g/dL (3.8-4.8)
== END 2016-07-25 12:00 | disposition home or self-care (01) | DRG 291 ==
LOC: E/R 23:16 → TEL 07-21 01:34
PROVIDERS: ADMIT Family Medicine; ATTEND Family Medicine
PROC: 4A033R1 Measurement of Arterial Saturation, Peripheral, Percutaneous Approach (ICD-10-PCS; principal; 2016-07-20)
PROC: 5A09357 Assistance with Respiratory Ventilation, Less than 24 Consecutive Hours, Continuous Positive Airway Pressure (ICD-10-PCS; 2016-07-24)
DX: I13.0 Hypertensive heart and chronic kidney disease with heart failure and stage 1 through stage 4 chronic kidney disease, or unspecified chronic kidney disease (principal); I50.43 Acute on chronic combined systolic (congestive) and diastolic (congestive) heart failure; R65.10 Systemic inflammatory response syndrome (SIRS) of non-infectious origin without acute organ dysfunction; N17.9 Acute kidney failure, unspecified; N18.3 Chronic kidney disease, stage 3 (moderate); I70.1 Atherosclerosis of renal artery; I25.2 Old myocardial infarction; I25.10 Atherosclerotic heart disease of native coronary artery without angina pectoris; E78.5 Hyperlipidemia, unspecified; I25.5 Ischemic cardiomyopathy; I70.213 Atherosclerosis of native arteries of extremities with intermittent claudication, bilateral legs; I16.0 Hypertensive urgency; I49.9 Cardiac arrhythmia, unspecified; E79.0 Hyperuricemia without signs of inflammatory arthritis and tophaceous disease; D64.9 Anemia, unspecified; Z95.1 Presence of aortocoronary bypass graft; Z79.82 Long term (current) use of aspirin; Z95.810 Presence of automatic (implantable) cardiac defibrillator; Z95.5 Presence of coronary angioplasty implant and graft; Z87.891 Personal history of nicotine dependence; T50.2X5A Adverse effect of carbonic-anhydrase inhibitors, benzothiadiazides and other diuretics, initial encounter; Y92.230 Patient room in hospital as the place of occurrence of the external cause
CPT/HCPCS: 36415; 36600; 71010; 76705; 78709; 80048; 80053; 81003; 81270; 82043; 82803; 83605; 83615; 83735; 84100; 84155; 84165; 84300; 84484; 84560; 85025; 85610; 85730; 86320; 87040; 87081; 93005; 93976; 94640; 94644; 94660; 94664; 96374; 96375; 96376; J1940; A9562; J0692; J1644; J2543; J3370; J7030; P9045

== ENCOUNTER 2016-07-28 16:58 | Inpatient (IN) | payer MEDICARE, OTHER ==
[~2016-07-28] VITALS: Ht 167.6 cm; Wt 69.7 kg
[~2016-07-28 16:58] MED LIST changes: -AMOX1TAB10 PO; +CLOP75TA28 PO; +HYDR-3672 PO; +ISOS10TA2 PO; -LISI10TA2 PO
[2016-07-28] MEDS ORDERED: morphine 4 MG/ML VIAL IV STA (17:36)
[2016-07-28] MEDS ORDERED: ONDANSETRON 4 MG INJ IV STA (17:36)
[2016-07-28] MEDS ORDERED: NITROGLYCERIN 2% 1 GM OINT PKT TD STA (17:36)
[2016-07-28] MEDS ORDERED: FUROSEMIDE 40 MG INJ IV STA (17:36)
[2016-07-28] MEDS ORDERED: ASPIRIN 81 MG TAB PO STA (17:36)
[2016-07-28] MEDS ORDERED: NITROGLYCERIN (SL) 0.4 MG TAB SL PRN ×2 (18:00→23:00)
--- NOTE | 2016-07-28 18:08 | RADRPT ---
PROCEDURE: XR Chest 1 view. CLINICAL INDICATION: Chest pain TECHNIQUE: AP views of the chest were obtained. COMPARISON: May 22, 2016 FINDINGS: The heart is large. Calcified atherosclerosis is noted in the aorta. 6.9 cm rounded right paratrach eal density is unchanged. The lungs are hyperexpanded. Mild interstitial prominence in both lungs is unchanged. Left-sided dual chamber pacemaker/defibrillator has its leads over the heart and is un changed. Median sternotomy wires overlie the heart. The osseous structures appear grossly intact. IMPRESSION: Cardiomegaly with calcified atherosclerosis in the aorta. Continued 6.9 cm rounded right paratracheal density that could reflect a mediastinal or lung mass. Further characterization with CT chest is recommended. Hyperexpanded lungs with chronic mild interstitial prominence in both lungs. Findings could reflect COPD. RPTAT: AA .João Rivas MD, Date Time Electronically viewed and signed by .João Rivas MD, MD on 07/28/2016 18:08 .P/
[2016-07-28 18:12] LABS: ADD SCAN DIFF NO
[2016-07-28 18:25] LABS: INR 1.06; PROTIME 13.8 Sec (12.2-14.2); PT RATIO 1.1
[2016-07-28 18:26] LABS: PARTIAL THROMBOPLASTIN TIME 36.5 Sec (25.0-35.0)
[2016-07-28 18:29] LABS: CREATININE 2.66 mg/dl (0.61-1.24); POTASSIUM 4.6 mmol/L (3.5-5.1)
[2016-07-28] MEDS ORDERED: LORAZEPAM 2 MG INJ IV ONE (18:30)
[2016-07-28 18:42] LABS: TROPONIN-I 0.101 ng/ml (0.00-0.12)
[2016-07-28 18:50] LABS: BASOPHIL # 0.1 10^3/ul (0.0-0.1); BASOPHILS % 0.5 % (0.0-2.0); EOSINOPHILS # 0.2 10^3/ul (0.0-0.5); EOSINOPHILS % 1.8 % (0.0-7.0); HEMATOCRIT 39.5 % (42.0-52.0); LYMPHOCYTES # 1.7 10^3/ul (0.8-2.9); LYMPHOCYTES % 14.3 % (15.0-51.0); MEAN CORPUSCULAR HEMOGLOBIN 29.3 pg (29.0-33.0); MEAN CORPUSCULAR HGB CONC 32.9 g/dl (32.0-37.0); MONOCYTE # 1.1 10^3/ul (0.3-0.9); MONOCYTES % 9.4 % (0.0-11.0); NEUTROPHIL # 8.7 10^3/ul (1.6-7.5); NEUTROPHILS % 73.2 % (39.0-77.0); PLATELET COUNT 671 10^3/UL (140-415); RED BLOOD COUNT 4.44 10^6/ul (4.70-6.10); RED CELL DISTRIBUTION WIDTH 13.2 % (11.5-14.5); WHITE BLOOD COUNT 11.9 10^3/ul (4.8-10.8)
[2016-07-28] MEDS ORDERED: ACETAMINOPHEN 325 MG TAB PO PRN ×2 (19:30→23:00)
[2016-07-28] MEDS ORDERED: ONDANSETRON 4 MG INJ IV PRN ×2 (19:30→23:00)
--- NOTE | 2016-07-28 19:52 | ERA ---
ER Documentation Chief Complaint Date/Time DATE: 07/28/16 TIME: 19:50 Chief Complaint cp onset 6 hrs ago HPI Patient is a 65-year-old male with coronary disease, CHF, and hypertension who presents with chest pain and shortness of breath. He has pressure-like chest pain which is left-sided. It started 3 days ago. He was recently discharged. The pain is been constant. He says "I feel bad". Upon review of old medical records this is the patient's 12 visit to the ER since 2013. ROS All systems reviewed and are negative except as per history of present illness. Medications Home Meds Active Scripts Clopidogrel Bisulfate (Clopidogrel) 75 Mg Tablet, 75 MG PO DAILY, #30 TAB 8 Refills Prov:MACK FLORES S. 07/25/16 Furosemide (Lasix) 20 Mg Tab, 20 MG PO BID@06,18 for 30 Days, #60 TAB 3 Refills Prov:MARIA LUZ FLORESP S. 07/25/16 Hydralazine Hcl* (Apresoline*) 50 Mg Tab, 50 MG PO TID, #90 TAB 3 Refills Prov:MARIA LUZ FLORESP S. 07/25/16 Isosorbide Dinitrate* (Isordil*) 10 Mg Tablet, 10 MG PO TID, #90 TAB 2 Refills Prov:MACK FLORES S. 07/25/16 Albuterol/Ipratropium* (Combivent Respimat*) 20-100 Mcg/Inh - 4 Gm Aer.w.adap, 1 PUFF INHALATION QID, #1 INHALER 1 Refill Prov:SANJUANITA SPAULDING 07/08/16 Carvedilol* (Carvedilol*) 12.5 Mg Tablet, 12.5 MG PO BID, #60 TAB Prov:GIA WILDER MD 03/07/16 Aspirin* (Aspirin* Chew) 81 Mg Tab.chew, 81 MG PO DAILY, #30 TAB.CHEW Prov:GIA WILDER MD 03/07/16 Atorvastatin* (Atorvastatin*) 80 Mg Tablet, 80 MG PO QHS, #30 TAB Prov:GIA WILDER MD 03/07/16 Reported Medications Ezetimibe* (Zetia*) 10 Mg Tablet, 10 MG PO DAILY, TAB 2 Amiodarone Hcl* (Amiodarone Hcl*) 100 Mg Tablet, 100 MG PO DAILY, #30 TAB 05/21/16 Zolpidem Tartrate* (Zolpidem Tartrate*) 10 Mg Tablet, 10 MG PO QHS Y for INSOMNIA, #30 TAB 01/25/16 Discontinued Scripts Amoxicillin/Potassium Clav (Amox-Clav 875-125 mg Tablet) 875-125 mg Tab, 1 TAB PO BID, #20 TAB Prov:SANJUANITA SPAULDING. 07/08/16 Lisinopril* (Lisinopril*) 10 Mg Tablet, 5 MG PO DAILY for 30 Days, TAB Prov:SANJUANITA SPAULDING. 07/08/16 Allergies Allergies: Coded Allergies: No Known Allergy (Unverified , 07/28/16) PMhx/Soc History of Surgery: Yes (CABG, INSERT AICD.) Anesthesia Reaction: No Hx Neurological Disorder: No Hx Respiratory Disorders: No Hx Cardiac Disorders: Yes ([place] ,CHF AND CARDIACMYOPATH.) Hx Psychiatric Problems: Yes (ANXIETY.) Hx Miscellaneous Medical Probl: No Hx Alcohol Use: Yes Hx Substance Use: No Hx Tobacco Use: Yes Smoking Status: Current every day smoker FmHx Family History: coronary disease Physical Exam Vitals Vital Signs Date Time Temp Pulse Resp B/P Pulse Ox O2 Delivery O2 Flow Rate FiO2 07/28/16 19:00 86 16 162/79 100 Room Air 07/28/16 18:32 Nasal Cannula 2 07/28/16 18:27 81 20 164/79 97 Room Air 07/28/16 17:05 98.1 100 18 181/82 99 Physical Exam Const: Moderate distress secondary to pain Head: Atraumatic Eyes: Normal Conjunctiva ENT: Normal External Ears, Nose and Mouth. Neck: Full range of motion..~ No meningismus. Resp: Decreased breath sounds bilaterally Cardio: Regular rate and rhythm, no murmurs Abd: Soft, non tender, non distended. Normal bowel sounds Skin: Diaphoretic and pale Back: No midline or flank tenderness Ext: No cyanosis, or edema Neur: Awake and alert Psych: Normal Mood and Affect Result Diagram: 07/28/16 1870 07/28/16 2815 Results 24 hrs Laboratory Tests Test 07/28/16 17:59 White Blood Count 11.910^3/ul Red Blood Count 4.4410^6/ul Hemoglobin 13.0g/dl Hematocrit 39.5% Mean Corpuscular Volume 89.0fl Mean Corpuscular Hemoglobin 29.3pg Mean Corpuscular Hemoglobin Concent 32.9g/dl Red Cell Distribution Width 13.2% Platelet Count 64266^3/UL Mean Platelet Volume 11.0fl Neutrophils % 73.2% Lymphocytes % 14.3% Monocytes % 9.4% Eosinophils % 1.8% Basophils % 0.5% Nucleated Red Blood Cells % 0.0/100WBC Neutrophils # 8.710^3/ul Lymphocytes # 1.710^3/ul Monocytes # 1.110^3/ul Eosinophils # 0.210^3/ul Basophils # 0.110^3/ul Nucleated Red Blood Cells # 0.010^3/ul Prothrombin Time 13.8Sec Prothrombin Time Ratio 1.1 INR International Normalized Ratio 1.06 Activated Partial Thromboplast Time 36.5Sec Sodium Level 137mmol/L Potassium Level 4.6mmol/L Chloride Level 107mmol/L Carbon Dioxide Level 19mmol/L Anion Gap 16 Blood Urea Nitrogen 43mg/dl Creatinine 2.66mg/dl Glucose Level 130mg/dl Calcium Level 10.0mg/dl Troponin I 0.101ng/ml Current Medications Medications (Trade) Dose Ordered Sig/Deanna Route PRN Reason Start Time Stop Time Status Last Admin Dose Admin Aspirin (Aspirin) 162 mg ONCE STAT PO 07/28/16 17:36 07/28/16 17:37 DC 07/28/16 17:47 Nitroglycerin (Nitroglycerin 2% Oint) 1 inch ONCE STAT TD 07/28/16 17:36 07/28/16 17:37 DC 07/28/16 17:47 Nitroglycerin (Nitroglycerin (Sl Tab) 0.4 Mg) 1 tab Q5M UP TO 3 DOSES PRN SL CHEST PAIN 07/28/16 18:00 07/28/16 17:44 Morphine Sulfate (morphine) 4 mg ONCE STAT IV 07/28/16 17:36 07/28/16 17:37 DC 07/28/16 17:47 Ondansetron HCl (Zofran Inj) 4 mg ONCE STAT IV 07/28/16 17:36 07/28/16 17:37 DC 07/28/16 17:46 Furosemide (Lasix) 40 mg ONCE STAT IV 07/28/16 17:36 07/28/16 17:37 DC 07/28/16 17:45 Lorazepam (Ativan) 0.5 mg ONCE ONCE IV 07/28/16 18:30 07/28/16 18:31 DC 07/28/16 18:37 Ondansetron HCl (Zofran Inj) 4 mg ER BRIDGE PRN IV NAUSEA AND/OR VOMITING 07/28/16 19:30 07/29/16 19:29 Acetaminophen (Tylenol Tab) 650 mg ER BRIDGE PRN PO MILD PAIN/FEVER 07/28/16 19:30 07/29/16 19:29 Procedures/MDM EKG read by me: Rate/Rhythm: Regular rate and rhythm at a rate of 95 Intervals: Normal Impression: Sinus rhythm with LVH Chest x-ray shows no pneumonia or pneumothorax per radiology. Patient is a 65-year-old male with multiple cardiac risk factors who presents with chest pain shortness of breath. I am concerned for acute coronary syndrome and congestive heart failure. The patient has a troponin within normal limits. He was given aspirin, nitroglycerin, Lasix, and morphine. The patient will be admitted to a telemetry bed. I spoke with Dr. Colindres from the panel team for admission. Departure Diagnosis: Primary Impression: Chest pain Qualified Code: R07.9 - Chest pain, unspecified type Additional Impressions: Acute congestive heart failure Qualified Code: I50.9 - Acute congestive heart failure, unspecified congestive heart failure type Anemia Qualified Code: D64.9 - Anemia, unspecified type Renal failure Condition: BISHOP Kc MD Jul 28, 2016 19:52
[2016-07-28 22:15] VITALS: BP 181/97; PULSE 92; RESP 18; Ht 167.6 cm; Wt 69.7 kg
[2016-07-28] MEDS ORDERED: hydrALAzine 20 MG INJ IV PRN (23:00)
[2016-07-28] MEDS ORDERED: morphine 2 MG INJ IV PRN (23:00)
[2016-07-28] MEDS ORDERED: ALBUTEROL/IPRATROPIUM (NEB) 3 ML AMP HHN PRN (23:00)
[2016-07-28] MEDS ORDERED: ALBUTEROL 18 GM INHALER INH PRN (23:30)
[2016-07-28] MEDS ORDERED: IPRATROPIUM (HFA) 12.9 GM INHALER INH PRN (23:30)
[2016-07-28] MEDS: ZOLPIDEM 5 MG TAB PO PRN (23:43)
[2016-07-29] VITALS (11 sets, daily range): BP systolic 90–152; BP diastolic 42–77; PULSE 69–82; RESP 19–20
[2016-07-29 00:37] LABS: CK-MB 4.52 ng/ml (0.0-2.4)
[2016-07-29 00:38] LABS: TROPONIN-I 0.122 ng/ml (0.00-0.12)
[2016-07-29] MEDS: ALBUTEROL/IPRATROPIUM (NEB) 3 ML AMP HHN SCH ×4 (02:19→20:00)
--- NOTE | 2016-07-29 03:48 | HP ---
Date/Time of Note Date/Time of Note DATE: 07/29/16 TIME: 03:26 Assessment/Plan VTE Prophylaxis VTE Prophylaxis Intervention: heparin Lines/Catheters IV [facility] [place] [facility] Urinary Cath still in place: No Assessment/Plan Assessment/Plan IMPRESSION 1. NSTEMI 2. Hypertensive urgency, resolved. 3. History of coronary artery disease status post CABG and PCI in the past. 4. History of ischemic cardiomyopathy, ejection fraction 20% to 25%, status post ICD placement in the past. 5. Metabolic Acidosis 6. CKD: stable 7. Peripheral vascular disease. 8. History of previous tobacco abuse 9. Right-sided renal artery stenosis. Nuclear medicine scan inconclusive. Needs further workup for possible pheochromocytoma. 10. Right upper lobe mass. Needs outpatient PET scan as well. PLAN Cont telemetry monitoring trend trops. Will start treatment dose anti-coagulation as needed Cont cardiac meds including aspirin Cardiology consult HPI/ROS Admit Date/Time Admit Date/Time Jul 28, 2016 at 19:22 Hx of Present Illness This is a 65 yo male with history of CAD with CABG, NSTEMI, dyslipidemia, history of CHF, ischemic cardiomyopathy 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%, AICD, chronic kidney disease, anxiety, Right-sided renal artery stenosis and right upper lobe mass who presented to ER with chest pain. Pain is left-sided and pressure-like with no radiation. He also reported SOB. Denied N/V or diaphoresis. Patient was discharged from here 3 days and pretty much since discharge, he has been experiencing intermittent chest pain. Please read discharge summary from for more info about recent hospitalization. In ER today, BP was 181/82 with HR of 100. first trop was neg, 2nd slightly elevated 0.122. CXR showed Cardiomegaly with calcified atherosclerosis in the aorta, continued 6.9 cm rounded right paratracheal density that could reflect a mediastinal or lung mass. Further characterization with CT chest is recommended and hyperexpanded lungs with chronic mild interstitial prominence in both lungs. Findings could reflect COPD. . PMH/Family/Social Past Surgical History Past Surgical Hx: coronary bypass surgery, other Social History Smoking Status: Current every day smoker Exam/Review of Systems Vital Signs Vitals Vital Signs Date Time Temp Pulse Resp B/P Pulse Ox O2 Delivery O2 Flow Rate FiO2 07/29/16 02:20 76 18 93 21 07/29/16 00:29 97.2 146/70 07/28/16 22:15 Room Air 07/28/16 18:32 2 Intake and Output 07/28/16 07/28/16 07/29/16 15:00 23:00 07:00 Output Total 450 ml Balance -450 ml Exam Constitutional: alert, oriented Head: atraumatic, normocephalic Respiratory: diminished breath sounds Cardiovascular: other (tachycardic), systolic murmur Gastrointestinal: non-tender, soft Extremities: normal pulses Labs Result Diagram: 07/28/16175807/28/161758 Medications Medications Current Medications Amiodarone HCl (Cordarone) 100 mg DAILY PO ; Start 07/29/16 at 09:00 Aspirin (Aspirin) 81 mg DAILY PO ; Start 07/29/16 at 09:00 Atorvastatin Calcium (Lipitor) 80 mg QHS PO ; Start 07/29/16 at 21:00 Carvedilol (Coreg) 12.5 mg BID PO ; Start 07/29/16 at 09:00 Clopidogrel Bisulfate (plaVIX) 75 mg DAILY PO ; Start 07/29/16 at 09:00 EZETIMIBE (Zetia) 10 mg DAILY PO ; Start 07/29/16 at 09:00 Hydralazine HCl (Apresoline) 50 mg TID PO ; Start 07/29/16 at 09:00 Isosorbide Dinitrate (Isordil) 10 mg TID PO ; Start 07/29/16 at 09:00 Zolpidem Tartrate (Ambien) 10 mg QHS PRN PO INSOMNIA Last administered on t 23:43; Admin Dose 10 MG; Start 07/28/16 at 23:00 Ondansetron HCl (Zofran Inj) 4 mg Q6H PRN IV NAUSEA AND/OR VOMITING; Start at 23:00 Acetaminophen (Tylenol Tab) 650 mg Q6H PRN PO PAIN AND OR ELEVATED TEMP; Start 07/28/16 at 23:00 Morphine Sulfate (morphine) 2 mg Q4H PRN IV pain; Start 07/28/16 at 23:00 Nitroglycerin (Nitroglycerin (Sl Tab) 0.4 Mg) 1 tab Q5M PRN SL ANGINA; Start at 23:00 Hydralazine HCl (Apresoline) 10 mg Q6H PRN IV SBP>160; Start 07/28/16 at 23:00 Furosemide (Lasix) 20 mg DAILY@06 IV ; Start 07/29/16 at 06:00 Albuterol (Ventolin Hfa) 1 puff Q4H PRN INH SHORTNESS OF BREATH; Start at 23:30 Ipratropium [place] (Atrovent Hfa) 1 puff Q4H PRN INH SHORTNESS OF BREATH; Start 07/28/16 at 23:30 SHRADDHA FRANKS MD Jul 29, 2016 03:36
[2016-07-29] MEDS ORDERED: FUROSEMIDE 20 MG INJ IV SCH (06:00)
[2016-07-29 08:46] LABS: TROPONIN-I 0.124 ng/ml (0.00-0.12)
[2016-07-29 08:51] LABS: CK-MB 5.63 ng/ml (0.0-2.4)
[2016-07-29] MEDS: EZETIMIBE 10 MG TAB PO SCH (10:11)
[2016-07-29] MEDS: ISOSORBIDE DINITRATE 10 MG TAB PO SCH ×3 (10:18→20:55)
[2016-07-29] MEDS: CLOPIDOGREL 75 MG TAB PO SCH (10:18)
[2016-07-29] MEDS: ASPIRIN 81 MG TAB PO SCH (10:19)
[2016-07-29] MEDS: AMIODARONE 200 MG TAB PO SCH (10:19)
[2016-07-29] MEDS: LORAZEPAM 0.5 MG TAB PO PRN (16:06)
--- NOTE | 2016-07-29 16:09 | CONS ---
Date/Time of Note Date/Time of Note DATE: 07/29/16 TIME: 15:56 Assessment/Plan Assessment/Plan Chief Complaint/Hosp Course Chest pain: Trops mildly elevated at 0.1 x 3 from his renal disease. No e/o ischemia otherwise. I believe his symptoms are all anxiety driven due to recent concern for his renal artery stenosis. As he is otherwise very active and without symptoms of chest pain and he exhibit no e/o acute coronary syndrome, stress testing or cardiac cath is unnecessary and likely detrimental with his CKD. He is agreeable to trying ativan PRN HTN: better after meds. Now BP low likely from lasix and NTG patch (both d/c-ed by me) H/o CAD s/p CABG/PCI H/o ICM EF 20%: euvolemic s/p ICD CKD: stable Cr -trial of ativan 1mg PO q6h prn -if successful, can go home tonight or in am depending on pt comfort level. Please d/c with ativan -continue ASA, plavix, lipitor -coreg, hydralazine, isordil, at current doses -d/c IV lasix, hold PO lasix tomorrow. If goes home can resume lasix 20mg daily and will see me on Sunday Problems: Consultation Date/Type/Reason Admit Date/Time Jul 28, 2016 at 19:22 Date of Consultation: Jul 29, 2016 Type of Consultation: Cardiology Reason for Consultation Chest pain Referring Provider: MACK FLORES Hx of Present Illness 65 yo M very well known to me from multiple admissions and in clinic who has a h /o CAD s/p CABG/PCI, Chronic systolic hear failure/cardiomyopathy with EF 20%, recurrent admissions for flash pulm edema with concern for possible renal artery stenosis, s/p ICD, CKD (baseline Cr mid 2s), who was admitted for chest pain. The pt has been having episodes where he feels "stressed" and not well. He has sharp pain/tingling in his chest during these epsodes.They occur mostly at night. I actually spoke to the son yesterday prior to admission and he noted that his father was having feelings of hopelessness and was very anxious due to the recent concern over his renal artery stenosis. Of note in my experience with the pt when he receives "bad news" or has a change in his condition, he exhibits e/o depression. Currently he feels well and is agreeable to trying anxiolytics. He prefers to try them inpt and if it is helpful wants to go home tomorrow am. Otherwise he has been doing well, no exertional symptoms. Still walking 1 mile daily without chest pain or SOB. BP has been controlled at home. per HPI Past Surgical History Past Surgical Hx: coronary bypass surgery, other Social History Smoking Status: Current every day smoker Exam/Review of Systems Vital Signs Vitals Vital Signs Date Time Temp Pulse Resp B/P Pulse Ox O2 Delivery O2 Flow Rate FiO2 07/29/16 15:25 98.6 74 20 90/42 99 07/29/16 14:00 21 07/28/16 22:15 Room Air 07/28/16 18:32 2 Intake and Output 07/28/16 07/28/16 07/29/16 14:59 22:59 06:59 Intake Total 300 ml Output Total 450 ml Balance -450 ml 300 ml Exam Constitutional: alert, oriented Psych: anxiety (mild), no complaints Head: atraumatic, normocephalic Neck: No jvd Respiratory: clear to auscultation, No crackles/rales Cardiovascular: regular rate and rhythm, No edema Gastrointestinal: soft Neurological: nl mental status, nl speech Results Result Diagram: 07/28/16175807/28/161758 Results 24 hrs Laboratory Tests Test 07/28/16 17:59 07/28/16 23:48 07/29/16 07:19 07/29/16 15:02 White Blood Count 11.9 #H Red Blood Count 4.44 L Hemoglobin 13.0 L Hematocrit 39.5 L Mean Corpuscular Volume 89.0 Mean Corpuscular Hemoglobin 29.3 Mean Corpuscular Hemoglobin Concent 32.9 Red Cell Distribution Width 13.2 Platelet Count 671 #H Mean Platelet Volume 11.0 H Neutrophils % 73.2 Lymphocytes % 14.3 L Monocytes % 9.4 Eosinophils % 1.8 Basophils % 0.5 Nucleated Red Blood Cells % 0.0 Neutrophils # 8.7 H Lymphocytes # 1.7 Monocytes # 1.1 H Eosinophils # 0.2 Basophils # 0.1 Nucleated Red Blood Cells # 0.0 Prothrombin Time 13.8 Prothrombin Time Ratio 1.1 INR International Normalized Ratio 1.06 Activated Partial Thromboplast Time 36.5 H Sodium Level 137 Potassium Level 4.6 Chloride Level 107 Carbon Dioxide Level 19 L Anion Gap 16 Blood Urea Nitrogen 43 H Creatinine 2.66 H Glucose Level 130 Calcium Level 10.0 Troponin I 0.101 0.122 *H 0.124 *H 0.104 Creatine Kinase 55 57 Creatine Kinase Index 8.2 9.9 Creatinine Kinase MB (Mass) 4.52 H 5.63 H Medications Medications Current Medications Amiodarone HCl (Cordarone) 100 mg DAILY PO Last administered on 07/29/16 10:19 ; Admin Dose 100 MG; Start 07/29/16 at 09:00 Aspirin (Aspirin) 81 mg DAILY PO Last administered on 07/29/16 10:19; Admin Dose 81 MG; Start 07/29/16 at 09:00 Atorvastatin Calcium (Lipitor) 80 mg QHS PO ; Start 07/29/16 at 21:00 Carvedilol (Coreg) 12.5 mg BID PO Last administered on 07/29/16 10:17; Admin Dose 12.5 MG; Start 07/29/16 at 09:00 Clopidogrel Bisulfate (plaVIX) 75 mg DAILY PO Last administered on 07/29/16 10 :18; Admin Dose 75 MG; Start 07/29/16 at 09:00 EZETIMIBE (Zetia) 10 mg DAILY PO Last administered on 07/29/16 10:11; Admin Dose 10 MG; Start 07/29/16 at 09:00 Hydralazine HCl (Apresoline) 50 mg TID PO Last administered on 07/29/16 12:46 ; Admin Dose 50 MG; Start 07/29/16 at 09:00 Isosorbide Dinitrate (Isordil) 10 mg TID PO Last administered on 07/29/16 12: 46; Admin Dose 10 MG; Start 07/29/16 at 09:00 Zolpidem Tartrate (Ambien) 10 mg QHS PRN PO INSOMNIA Last administered on 23:43; Admin Dose 10 MG; Start 07/28/16 at 23:00 Ondansetron HCl (Zofran Inj) 4 mg Q6H PRN IV NAUSEA AND/OR VOMITING; Start at 23:00 Acetaminophen (Tylenol Tab) 650 mg Q6H PRN PO PAIN AND OR ELEVATED TEMP; Start 07/28/16 at 23:00 Morphine Sulfate (morphine) 2 mg Q4H PRN IV pain; Start 07/28/16 at 23:00 Nitroglycerin (Nitroglycerin (Sl Tab) 0.4 Mg) 1 tab Q5M PRN SL ANGINA; Start at 23:00 Hydralazine HCl (Apresoline) 10 mg Q6H PRN IV SBP>160; Start 07/28/16 at 23:00 Albuterol (Ventolin Hfa) 1 puff Q4H PRN INH SHORTNESS OF BREATH; Start at 23:30 Ipratropium [place] (Atrovent Hfa) 1 puff Q4H PRN INH SHORTNESS OF BREATH; Start 07/28/16 at 23:30 Furosemide (Lasix) 20 mg DAILY@06 PO ; Start 07/30/16 at 06:00 Lorazepam (Ativan) 1 mg Q6H PRN PO ANXIETY; Start 07/29/16 at 16:00; Status EMILY EDWARDS Jul 29, 2016 16:09
[2016-07-29] MEDS: ZOLPIDEM 5 MG TAB PO PRN (20:55)
[2016-07-29] MEDS ORDERED: ATORVASTATIN 80 MG TAB PO SCH (21:00)
[2016-07-30] VITALS (9 sets, daily range): BP systolic 100–154; BP diastolic 55–79; PULSE 69–78; RESP 17–20
[2016-07-30] MEDS ORDERED: FUROSEMIDE 20 MG TAB PO SCH (06:00)
[2016-07-30] MEDS: ALBUTEROL/IPRATROPIUM (NEB) 3 ML AMP HHN SCH ×2 (07:34→14:00)
[2016-07-30 07:43] LABS: ADD SCAN DIFF NO
[2016-07-30 07:49] LABS: BASOPHIL # 0.1 10^3/ul (0.0-0.1); BASOPHILS % 0.6 % (0.0-2.0); EOSINOPHILS # 0.3 10^3/ul (0.0-0.5); EOSINOPHILS % 2.6 % (0.0-7.0); HEMATOCRIT 35.2 % (42.0-52.0); HEMOGLOBIN 11.4 g/dl (14.0-18.0); LYMPHOCYTES # 2.2 10^3/ul (0.8-2.9); LYMPHOCYTES % 18.7 % (15.0-51.0); MEAN CORPUSCULAR HEMOGLOBIN 28.9 pg (29.0-33.0); MEAN CORPUSCULAR HGB CONC 32.4 g/dl (32.0-37.0); MEAN CORPUSCULAR VOLUME 89.3 fl (82.0-101.0); MEAN PLATELET VOLUME 11.2 fl (7.4-10.4); MONOCYTE # 1.1 10^3/ul (0.3-0.9); MONOCYTES % 9.3 % (0.0-11.0); NEUTROPHIL # 7.8 10^3/ul (1.6-7.5); NEUTROPHILS % 67.7 % (39.0-77.0); PLATELET COUNT 539 10^3/UL (140-415); RED BLOOD COUNT 3.94 10^6/ul (4.70-6.10); RED CELL DISTRIBUTION WIDTH 13.1 % (11.5-14.5); WHITE BLOOD COUNT 11.5 10^3/ul (4.8-10.8)
[2016-07-30 07:57] LABS: CALCIUM 9.3 mg/dl (8.4-10.2); CREATININE 3.44 mg/dl (0.61-1.24); POTASSIUM 4.3 mmol/L (3.5-5.1)
[2016-07-30] MEDS: CLOPIDOGREL 75 MG TAB PO SCH (09:47)
[2016-07-30] MEDS: ASPIRIN 81 MG TAB PO SCH (09:47)
[2016-07-30] MEDS: EZETIMIBE 10 MG TAB PO SCH (09:47)
[2016-07-30] MEDS: AMIODARONE 200 MG TAB PO SCH (09:49)
[2016-07-30] MEDS: ISOSORBIDE DINITRATE 10 MG TAB PO SCH ×2 (10:00→12:43)
--- NOTE | 2016-07-30 12:08 | PDOCDIS ---
Discharge Instructions CONDITION Patient Condition: Stable HOME CARE INSTRUCTIONS: Special Diet: 2GmNa, cardiac ACTIVITY: Activity Restrictions: Slowly Increase Activity FOLLOW UP/APPOINTMENTS Appointments Please take your medications as prescribed, and see your doctor in the clinic in 1 week. MACK FLORES Jul 30, 2016 12:08
[2016-07-30] MEDS: LORAZEPAM 0.5 MG TAB PO PRN (12:43)
--- NOTE | 2016-07-30 13:02 | DS ---
DATE OF ADMISSION: 07/28/2016 DATE OF DISCHARGE: 07/30/2016 HOSPITAL COURSE: This is a 65-year-old male originally admitted on 07/29/2016, being discharged [place] on 07/30/2016. The patient came in with chest pain symptoms. He also had elevated troponin level ____ and ukg-IV-[id number] myocardial infarction, and the patient was admitted to telemetry floor, [facility] by cardiology team. His trops were mildly elevated, but there was no evidence of any ischemia o therwise based on cardiology recommendations and they thought that his symptoms were all related to anxiety driven due to recent concern for his renal artery stenosis. The patient was given Ativan wh ile he was here, his anxiety symptoms and chest pain symptoms improved. He was able to ambulate and tolerate a p.o. diet and he did have a slight increase in his creatinine levels, but his urine outp ut was stable and it was recommended to hold Lasix dose for at least 48 hours and he will be dischar [facility] home today in improved condition. DISCHARGE MEDICATIONS: He will be sent with the following medications: 1. Combivent 1 puff inhaled q.i.d. 2. Amiodarone 100 mg daily. 3. Aspirin 81 mg daily. 4. Atorvastatin 80 mg at bedtime. 5. Coreg 12.5 mg b.i.d. 6. Plavix 75 mg daily. 7. Zetia 10 mg daily. 8. Lasix 20 mg p.o. b.i.d. and to resume in 48 hours. 9. Hydralazine 50 mg t.i.d. 10. Isordil 10 mg t.i.d. 11. Ten mg of Ambien at bedtime p.r.n. He will need to follow up with the cardiology team and the primary care doctor at the ____ clinic in the next 1 to 2 weeks. FINAL DIAGNOSES: 1. Chest pain with elevated troponin levels, thought to be secondary to anxiety and less likely due to ischemia. 2. History of acute on chronic systolic and diastolic heart failure, improved. 3. Hypertensive urgency in the past. 4. History of coronary artery disease, status post CABG and PCI in the past. 5. History of ischemic cardiomyopathy, ejection fraction 20% to 25%, status post ICD placement ____ . 6. Acute on chronic kidney disease, possibly secondary to diuretics. Being monitored. 7. Peripheral vascular disease. 8. History previous tobacco abuse. 9. Right-sided renal artery stenosis. Nuclear medicine scan 1 week ago inconclusive, needs further workup as outpatient for possible ____. 10. Hyperuricemia. 11. Right upper lobe mass, need outpatient PET scan as well. Time spent on discharging patient: 45 minutes. Dictated By: MACK DU Conf#: [id number] DID#: [id number]
--- NOTE | 2016-07-31 07:36 | PN ---
DATE: 07/29/2016 SUBJECTIVE: The patient denies any chest pain. OBJECTIVE VITAL SIGNS: Stable. GENERAL: The patient is lying in bed, family member at the bedside. No acute distress. HEENT: Pupils equal, round, reactive to ____auscultation. CARDIOVASCULAR: S1, S2. No murmurs or gallops. ABDOMEN: Soft, nontender. Positive bowel sounds. EXTREMITIES: No lower extremity edema. ____ LABORATORY DATA: WBC ____, platelets basic metabolic panel was normal. ____His BUN is 43, creatini ne is 2.6. First troponin 0.101, second troponin ____ Second ____ is elevated. Chest x-ray show s cardiomegaly with calcified atherosclerosis in the aorta. Continue 6.9 cm ____ Paratracheal that he could reflect mediastinal lung mass recommending CT chest and ____ mild interstitial prominence i n both lungs with COPD. ASSESSMENT AND PLAN: 1. A 65-year-old male with a history of systolic and diastolic heart failure, coronary artery disea se, coronary artery bypass grafting and stents in the past, hypertension who presents with chest luigi n symptoms ____times a possible non-ST elevation myocardial infarction. 2. Chest pain. Again, patient does have elevated second and third troponins. Will get a cardiolog y consult. Continue current medications for now, Coreg, aspirin, Amiodarone, Lipitor, Plavix, Zetia , Isordil, Lasix. Follow up cardiology recommendations. 3. History of coronary artery disease status post PCI in the past. See #1. Continue current medic ations. 4. Essential hypertension. Blood pressure stable, see #1. 5. History of ischemic cardiomyopathy, ejection fraction 20% to 25%, status post ICD placement in t he past. Continue to monitor for now. Continue current medications. See #1. 6. Acute on chronic kidney disease, possibly secondary to diuretics in the past. Creatinine is act ually improved but still elevated. Continue to monitor for now. 7. Peripheral vascular disease. Continue aspirin and Plavix. 8. History of ____ tobacco abuse. Counseled on cessation on past admission. 9. Right central renal artery stenosis with nuclear medicine scanning ____on last admission a few d ays ago. For outpatient ___ pheochromocytoma. 12. Right upper lobe mass; again, evaluated on last admission a few days ago and needs likely outpa tient PET scan and possible biopsy then. Dictated By: MACK DU Conf#: [id number] DID#: [id number]
== END 2016-07-30 16:50 | disposition home or self-care (01) | DRG 291 ==
LOC: E/R 16:58 → MS4 19:22
PROVIDERS: ADMIT Internal Medicine; ATTEND Internal Medicine
DX: I13.0 Hypertensive heart and chronic kidney disease with heart failure and stage 1 through stage 4 chronic kidney disease, or unspecified chronic kidney disease (principal); I50.43 Acute on chronic combined systolic (congestive) and diastolic (congestive) heart failure; N17.9 Acute kidney failure, unspecified; E87.2 Acidosis; I70.1 Atherosclerosis of renal artery; I73.9 Peripheral vascular disease, unspecified; F41.9 Anxiety disorder, unspecified; I25.5 Ischemic cardiomyopathy; I25.10 Atherosclerotic heart disease of native coronary artery without angina pectoris; F17.210 Nicotine dependence, cigarettes, uncomplicated; G47.00 Insomnia, unspecified; D64.9 Anemia, unspecified; I16.0 Hypertensive urgency; N18.9 Chronic kidney disease, unspecified; Z79.02 Long term (current) use of antithrombotics/antiplatelets; Z79.82 Long term (current) use of aspirin; Z95.810 Presence of automatic (implantable) cardiac defibrillator; Z95.1 Presence of aortocoronary bypass graft
CPT/HCPCS: 36415; 71010; 80048; 82550; 82553; 84484; 85025; 85610; 85730; 93005; 94640; 94664; 96374; 96375; J1940; J2060; J2270; J2405

== ENCOUNTER 2016-08-16 06:46 | Inpatient (IN) | payer MEDICARE, OTHER ==
[~2016-08-16] VITALS: Ht 175.3 cm; Wt 70.1 kg
[2016-08-16] VITALS (18 sets, daily range): BP systolic 153–173; BP diastolic 71–85; PULSE 68–83; RESP 13–18; Ht 175.3 cm; Wt 70.1 kg
[2016-08-16] MEDS ORDERED: NITROGLYCERIN 2% 1 GM OINT PKT TD STA (06:49)
[2016-08-16] MEDS ORDERED: ASPIRIN 81 MG TAB PO STA (06:49)
[2016-08-16] MEDS ORDERED: FUROSEMIDE 40 MG INJ IV ONE (07:00)
[2016-08-16] MEDS ORDERED: NITROGLYCERIN (SL) 0.4 MG TAB SL PRN (07:00)
[2016-08-16 07:01] LABS: ADD SCAN DIFF NO
[2016-08-16] MEDS ORDERED: ONDANSETRON 4 MG INJ IV STA (07:03)
[2016-08-16] MEDS ORDERED: morphine 4 MG/ML VIAL IV STA (07:03)
[2016-08-16 07:13] LABS: BASOPHIL # 0.1 10^3/ul (0.0-0.1); BASOPHILS % 0.6 % (0.0-2.0); EOSINOPHILS # 0.4 10^3/ul (0.0-0.5); EOSINOPHILS % 3.6 % (0.0-7.0); HEMOGLOBIN 12.5 g/dl (14.0-18.0); LYMPHOCYTES # 2.8 10^3/ul (0.8-2.9); MEAN CORPUSCULAR HEMOGLOBIN 29.1 pg (29.0-33.0); MEAN CORPUSCULAR HGB CONC 32.1 g/dl (32.0-37.0); MEAN CORPUSCULAR VOLUME 90.9 fl (82.0-101.0); MEAN PLATELET VOLUME 10.8 fl (7.4-10.4); MONOCYTE # 1.2 10^3/ul (0.3-0.9); MONOCYTES % 9.9 % (0.0-11.0); NEUTROPHIL # 7.7 10^3/ul (1.6-7.5); NEUTROPHILS % 62.1 % (39.0-77.0); PLATELET COUNT 544 10^3/UL (140-415); RED BLOOD COUNT 4.29 10^6/ul (4.70-6.10); WHITE BLOOD COUNT 12.4 10^3/ul (4.8-10.8)
[2016-08-16 07:16] LABS: PARTIAL THROMBOPLASTIN TIME 34.4 Sec (25.0-35.0); PROTIME 13.2 Sec (12.2-14.2)
[2016-08-16 07:19] LABS: CALCIUM 9.6 mg/dl (8.4-10.2); CREATININE 2.21 mg/dl (0.61-1.24); POTASSIUM 4.1 mmol/L (3.5-5.1)
[2016-08-16 07:30] LABS: TROPONIN-I 0.119 ng/ml (0.00-0.12)
--- NOTE | 2016-08-16 07:37 | RADRPT ---
PROCEDURE: XR Chest 1 view. CLINICAL INDICATION: Chest pain TECHNIQUE: AP views of the chest were obtained. COMPARISON: May 22, 2016 FINDINGS: The heart is large. Calcified atherosclerosis is noted in the aorta. Left-sided dual chamber pacema ker has its leads over the heart and appears stable. Median sternotomy wires are seen overlying the heart. The lungs are hyperexpanded. Central pulmonary vascular congestion and interstitial promin ence is seen in both lungs. Superimposed mild alveolar infiltrates are seen in the bilateral mid an d lower lungs. 6.9 cm rounded right suprahilar density continues to be seen. The osseous structures are osteopenic, but appear grossly intact IMPRESSION: Cardiomegaly with calcified atherosclerosis in the aorta. Central pulmonary vascular congestion and interstitial prominence in both lungs. Superimposed potential mild alveolar infiltrates in the bilateral mid and lower lungs. Continued 6.9 cm rounded right suprahilar density. Finding could reflect mediastinal and hilar [place] opathy or mass. Further characterization with CT chest continues to be recommended. Hyperexpanded lungs. RPTAT: AA .João Rivas MD, Date Time Electronically viewed and signed by .João Rivas MD, on 08/16/2016 07:36 .P/
[2016-08-16] MEDS ORDERED: ACETAMINOPHEN 325 MG TAB PO PRN (08:00)
[2016-08-16] MEDS ORDERED: ONDANSETRON 4 MG INJ IV PRN ×2 (08:00→18:00)
--- NOTE | 2016-08-16 08:10 | ERA ---
ER Documentation Chief Complaint Date/Time DATE: 08/16/16 TIME: 08:08 Chief Complaint sob x 1 hr , denies cp HPI Patient is a 65-year-old male with coronary disease and CHF who presents with shortness of breath. The patient was brought in by ambulance. The patient says "I cannot breathe". He said that it started 1 hour before arrival. His blood pressure is elevated. He has had no treatment as of yet. ROS All systems reviewed and are negative except as per history of present illness. Medications Home Meds Active Scripts Clopidogrel Bisulfate (Clopidogrel) 75 Mg Tablet, 75 MG PO DAILY, #30 TAB 8 Refills Prov:SANDRAMACK S. 07/25/16 Furosemide (Lasix) 20 Mg Tab, 20 MG PO BID@06,18 for 30 Days, #60 TAB 3 Refills Prov:QUIRINO FLROESMACK S. 07/25/16 Hydralazine Hcl* (Apresoline*) 50 Mg Tab, 50 MG PO TID, #90 TAB 3 Refills Prov:SANDRAMACK S. 07/25/16 Isosorbide Dinitrate* (Isordil*) 10 Mg Tablet, 10 MG PO TID, #90 TAB 2 Refills Prov:SANDRAMACK S. 07/25/16 Albuterol/Ipratropium* (Combivent Respimat*) 20-100 Mcg/Inh - 4 Gm Aer.w.adap, 1 PUFF INHALATION QID, #1 INHALER 1 Refill Prov:SANJUANITA SPAULDING 07/08/16 Carvedilol* (Carvedilol*) 12.5 Mg Tablet, 12.5 MG PO BID, #60 TAB Prov:GIA WILDER MD 03/07/16 Aspirin* (Aspirin* Chew) 81 Mg Tab.chew, 81 MG PO DAILY, #30 TAB.CHEW Prov:GIA WILDER MD 03/07/16 Atorvastatin* (Atorvastatin*) 80 Mg Tablet, 80 MG PO QHS, #30 TAB Prov:GIA WILDER MD 03/07/16 Reported Medications Ezetimibe* (Zetia*) 10 Mg Tablet, 10 MG PO DAILY, TAB 05/21/16 Amiodarone Hcl* (Amiodarone Hcl*) 100 Mg Tablet, 100 MG PO DAILY, #30 TAB 05/21/16 Zolpidem Tartrate* (Zolpidem Tartrate*) 10 Mg Tablet, 10 MG PO QHS Y for INSOMNIA, #30 TAB 01/25/16 Allergies Allergies: Coded Allergies: No Known Allergy (Unverified , 07/28/16) PMhx/Soc History of Surgery: Yes (CABG October 2015, Pacemaker placemnet Mar 2016) Anesthesia Reaction: No Hx Neurological Disorder: No Hx Respiratory Disorders: Yes (SOB on exertion) Hx Cardiac Disorders: Yes (Hypertension, CAD) Hx Psychiatric Problems: No Hx Alcohol Use: Yes Hx Substance Use: No Hx Tobacco Use: Yes (1 /2 PPD for 40 years) Smoking Status: Former smoker FmHx Family History: coronary disease Physical Exam Vitals Vital Signs Date Time Temp Pulse Resp B/P Pulse Ox O2 Delivery O2 Flow Rate FiO2 08/16/16 07:38 20 166/90 94 Nasal Cannula 2.0 08/16/16 07:13 104 20 184/102 96 Nasal Cannula 2.0 08/16/16 07:00 Nasal Cannula 08/16/16 06:55 Nasal Cannula 2 08/16/16 06:49 98.4 104 18 218/114 95 Physical Exam Const: Moderate distress secondary to shortness of breath Head: Atraumatic Eyes: Normal Conjunctiva ENT: Normal External Ears, Nose and Mouth. Neck: Full range of motion..~ No meningismus. Resp: Decreased breath sounds bilaterally Cardio: Tachycardic rate without murmur Abd: Soft, non tender, non distended. Normal bowel sounds Skin: No petechiae or rashes Back: No midline or flank tenderness Ext: No cyanosis, or edema Neur: Awake and alert Psych: Normal Mood and Affect Result Diagram: 08/16/16 0650 08/16/16 0650 Results 24 hrs Laboratory Tests Test 08/16/16 06:50 White Blood Count 12.410^3/ul Red Blood Count 4.2910^6/ul Hemoglobin 12.5g/dl Hematocrit 39.0% Mean Corpuscular Volume 90.9fl Mean Corpuscular Hemoglobin 29.1pg Mean Corpuscular Hemoglobin Concent 32.1g/dl Red Cell Distribution Width 13.0% Platelet Count 84976^3/UL Mean Platelet Volume 10.8fl Neutrophils % 62.1% Lymphocytes % 23.0% Monocytes % 9.9% Eosinophils % 3.6% Basophils % 0.6% Nucleated Red Blood Cells % 0.0/100WBC Neutrophils # 7.710^3/ul Lymphocytes # 2.810^3/ul Monocytes # 1.210^3/ul Eosinophils # 0.410^3/ul Basophils # 0.110^3/ul Nucleated Red Blood Cells # 0.010^3/ul Prothrombin Time 13.2Sec Prothrombin Time Ratio 1.0 INR International Normalized Ratio 1.00 Activated Partial Thromboplast Time 34.4Sec Sodium Level 140mmol/L Potassium Level 4.1mmol/L Chloride Level 102mmol/L Carbon Dioxide Level 29mmol/L Anion Gap 13 Blood Urea Nitrogen 33mg/dl Creatinine 2.21mg/dl Glucose Level 149mg/dl Calcium Level 9.6mg/dl Troponin I 0.119ng/ml Current Medications Medications (Trade) Dose Ordered Sig/Deanna Route PRN Reason Start Time Stop Time Status Last Admin Dose Admin Aspirin (Aspirin) 162 mg ONCE STAT PO 08/16/16 06:49 08/16/16 06:50 DC 08/16/16 06:56 Nitroglycerin (Nitroglycerin 2% Oint) 1 inch ONCE STAT TD 08/16/16 06:49 08/16/16 06:50 DC 08/16/16 06:56 Nitroglycerin (Nitroglycerin (Sl Tab) 0.4 Mg) 1 tab Q5M UP TO 3 DOSES PRN SL CHEST PAIN 08/16/16 07:00 Furosemide (Lasix) 40 mg ONCE ONCE IV 08/16/16 07:00 08/16/16 07:01 DC 08/16/16 07:04 Morphine Sulfate (morphine) 4 mg ONCE STAT IV 08/16/16 07:03 08/16/16 07:04 DC 08/16/16 07:08 Ondansetron HCl (Zofran Inj) 4 mg ONCE STAT IV 08/16/16 07:03 08/16/16 07:04 DC 08/16/16 07:08 Ondansetron HCl (Zofran Inj) 4 mg ER BRIDGE PRN IV NAUSEA AND/OR VOMITING 08/16/16 08:00 08/17/16 07:59 Acetaminophen (Tylenol Tab) 650 mg ER BRIDGE PRN PO MILD PAIN/FEVER 08/16/16 08:00 08/17/16 07:59 Procedures/MDM EKG #1 read by me: Rate/Rhythm: Sinus tachycardia rate of 105 Intervals: Normal Impression: Sinus tachycardia with left bundle branch block with negative Sgarbossa criteria EKG #2 read by me: Rate/Rhythm: Sinus tachycardia rate of 104 Intervals: Normal Impression: Sinus tachycardia with left bundle branch block with negative Sgarbossa criteria PROCEDURE: XR Chest 1 view. CLINICAL INDICATION: Chest pain TECHNIQUE: AP views of the chest were obtained. COMPARISON: May 22, 2016 FINDINGS: The heart is large. Calcified atherosclerosis is noted in the aorta. Left- sided dual chamber pacemaker has its leads over the heart and appears stable. Median sternotomy wires are seen overlying the heart. The lungs are hyperexpanded. Central pulmonary vascular congestion and interstitial prominence is seen in both lungs. Superimposed mild alveolar infiltrates are seen in the bilateral mid and lower lungs. 6.9 cm rounded right suprahilar density continues to be seen. The osseous structures are osteopenic, but appear grossly intact IMPRESSION: Cardiomegaly with calcified atherosclerosis in the aorta. Central pulmonary vascular congestion and interstitial prominence in both lungs. Superimposed potential mild alveolar infiltrates in the bilateral mid and lower lungs. Continued 6.9 cm rounded right suprahilar density. Finding could reflect mediastinal and hilar adenopathy or mass. Further characterization with CT chest continues to be recommended. Hyperexpanded lungs. RPTAT: AA .João Rivas MD, Date Time Electronically viewed and signed by .João Rivas MD, MD on 08/16/2016 07:36 Patient is a 65-year-old male with cardiac disease who presents with acute CHF exacerbation and shortness of breath. He had elevated blood pressure as well. The patient was given aspirin, nitroglycerin, and Lasix. He was also given morphine. He feels better. The patient will be admitted to the care of Dr. Spaulding from the panel team to a telemetry bed. He is scheduled to have a renal artery angiogram today as well which he says his doctor believes is the cause of his high blood pressure. The patient will need to be admitted for further evaluation. His blood pressure has improved with treatment. At this point I am still concerned for acute coronary syndrome. I doubt pneumonia, pneumothorax , pulmonary embolism, or aortic dissection. Departure Diagnosis: Primary Impression: Acute CHF Qualified Code: I50.9 - Acute congestive heart failure, unspecified congestive heart failure type Additional Impression: Shortness of breath Condition: BISHOP Kc MD August 16, 2016 08:10
[2016-08-16] MEDS ORDERED: AMIO200T2 PO (08:39)
[2016-08-16] MEDS ORDERED: CLOP75TA27 PO (08:41)
[2016-08-16] MEDS ORDERED: CARV12.579 PO (08:41)
[2016-08-16] MEDS ORDERED: HYDR-3672 PO (08:43)
[2016-08-16] MEDS ORDERED: ISOS10TA2 PO (08:44)
--- NOTE | 2016-08-16 11:56 | CONS ---
Date/Time of Note Date/Time of Note DATE: 08/16/16 TIME: 11:47 Assessment/Plan Assessment/Plan Chief Complaint/Hosp Course Flash pulmonary edema: multiple admissions for the same. Renal angiography today to evaluate. If no MAHESH, may just be from anxiety driven episodes. Hypertensive emergency: SBP 218 on admission. Now 150s. Generally has good control at home Acute on chronic systolic heart failurE: EF 20%. Due to above. Needs some more diuresis but not aggressive as mostly left sided and normal JVP H/o CAD s/p CABG/PCI H/o ICM EF 20%: euvolemic s/p ICD CKD: Cr is better than it has been recently. It is 2.2 today -renal angio today (CO2 to avoid contrast nephropathy) -lasix 20mg IV now, then 20mg daily tomorrow -continue ASA, plavix, lipitor -coreg, hydralazine, isordil - Problems: Consultation Date/Type/Reason Admit Date/Time August 16, 2016 at 07:51 Date of Consultation: August 16, 2016 Type of Consultation: Cardiology Reason for Consultation CHF Referring Provider: SANJUANITA SPAULDING Hx of Present Illness 65 yo M very well known to me from multiple admissions and in clinic who has a h /o CAD s/p CABG/PCI, Chronic systolic hear failure/cardiomyopathy with EF 20%, recurrent admissions for flash pulm edema with concern for possible renal artery stenosis, s/p ICD, CKD (baseline Cr mid 2s), who was admitted again for sudden onset SOB, hypertensive emergency with SBP 218, flash pulmonary edema. The pt was scheduled to have renal artery angiography today. He woke up early and was starting to think about the procedure and stared to get SOB again and called the ambulance. He was feeling well yesterday [place] He is compliant with his meds as always. Currently feels well. He notes having a cough over the past few days. per HPI Past Medical History per HPI Past Surgical History Past Surgical Hx: coronary bypass surgery, other Social History Alcohol Use: rarely Smoking Status: Former smoker Exam/Review of Systems Vital Signs Vitals Vital Signs Date Time Temp Pulse Resp B/P Pulse Ox O2 Delivery O2 Flow Rate FiO2 08/16/16 11:04 98.4 79 18 160/80 92 08/16/16 08:22 Nasal Cannula 2.0 Exam Constitutional: alert, oriented Psych: no complaints Head: atraumatic, normocephalic Neck: jvd (7cm) Respiratory: crackles/rales, No clear to auscultation Cardiovascular: regular rate and rhythm, No edema Gastrointestinal: non-tender, soft Musculoskeletal: nl extremities to inspection Neurological: nl mental status, nl speech Results sinus, LBBB Result Diagram: 08/16/16 0650 08/16/16 0650 Results 24 hrs Laboratory Tests Test 08/16/16 06:50 White Blood Count 12.4 H Red Blood Count 4.29 L Hemoglobin 12.5 L Hematocrit 39.0 L Mean Corpuscular Volume 90.9 Mean Corpuscular Hemoglobin 29.1 Mean Corpuscular Hemoglobin Concent 32.1 Red Cell Distribution Width 13.0 Platelet Count 544 H Mean Platelet Volume 10.8 H Neutrophils % 62.1 Lymphocytes % 23.0 Monocytes % 9.9 Eosinophils % 3.6 Basophils % 0.6 Nucleated Red Blood Cells % 0.0 Neutrophils # 7.7 H Lymphocytes # 2.8 Monocytes # 1.2 H Eosinophils # 0.4 Basophils # 0.1 Nucleated Red Blood Cells # 0.0 Prothrombin Time 13.2 Prothrombin Time Ratio 1.0 INR International Normalized Ratio 1.00 Activated Partial Thromboplast Time 34.4 Sodium Level 140 Potassium Level 4.1 Chloride Level 102 Carbon Dioxide Level 29 Anion Gap 13 Blood Urea Nitrogen 33 H Creatinine 2.21 H Glucose Level 149 Calcium Level 9.6 Troponin I 0.119 Medications Medications Current Medications Aspirin (Aspirin) 81 mg DAILY PO ; Start 08/17/16 at 09:00 Clopidogrel Bisulfate (plaVIX) 75 mg DAILY PO ; Start 08/16/16 at 12:00 Carvedilol (Coreg) 12.5 mg BID PO ; Start 08/16/16 at 12:00 Hydralazine HCl (Apresoline) 50 mg Q8 PO ; Start 08/16/16 at 14:00 Isosorbide Dinitrate (Isordil) 10 mg Q8 PO ; Start 08/16/16 at 14:00 Furosemide (Lasix) 20 mg ONCE ONCE IV ; Start 08/16/16 at 12:00; Stop 08/16/16 at 12:01; Status UNV Furosemide (Lasix) 20 mg DAILY PO ; Start 08/17/16 at 09:00; Status UNV HUDSONEMILY August 16, 2016 11:56
[2016-08-16] MEDS ORDERED: FUROSEMIDE 20 MG INJ IV ONE (12:00)
[2016-08-16] MEDS: CLOPIDOGREL 75 MG TAB PO SCH (12:24)
--- NOTE | 2016-08-16 13:26 | HP ---
Date/Time of Note Date/Time of Note DATE: 08/16/16 TIME: 13:08 Assessment/Plan VTE Prophylaxis VTE Prophylaxis Intervention: ambulation, SCD's Lines/Catheters IV Catheter Type (from Nrs): Saline Lock Assessment/Plan Assessment/Plan 1. Acute on chronic systolic/diastolic heart failure: * Patient prone to flashes of active pulmonary edema, usually triggered by stressors. * There is also concerned that this could be secondary to renal artery stenosis , planned for renal arteriogram today 2. HTN emergency 3. CAD s/p CABG/PCI 4. Ischemic cardiomyopathy: EF ~20-25% S/p ICD for secondary prevention 5. R sided Renal artery stenosis 6. CKD likely 2/2 diuretics 7. PVD 8. Prev Tobacco use 9. Hyperuricemia 10. Chronic stable right-sided lung mass for which patient wants no further intervention or workup PLAN: * Admit to telemetry, comments gentle diuresis. Renal function seems to be stable. Rule out an acute coronary syndrome * Cardiology as well as nephrology consultation, I believe patient is safe to proceed with previously planned procedure today if okay with cardiology * Resume all previous home meds * Supportive care Plan of care has been discussed with patient and his I have discussed with cardiology as well as nephrology HPI/ROS Admit Date/Time Admit Date/Time August 16, 2016 at 07:51 Hx of Present Illness 65 yo M very well known to me from multiple admissions and in clinic who has a h /o CAD s/p CABG/PCI, Chronic systolic hear failure/cardiomyopathy with EF 20%, recurrent admissions for flash pulm edema with concern for possible renal artery stenosis, s/p ICD, CKD (baseline Cr mid 2s), who was admitted again for sudden onset SOB, hypertensive emergency with SBP 218, flash pulmonary edema. The pt was scheduled to have renal artery angiography today. He woke up early and was starting to think about the procedure and stared to get SOB again and called the ambulance. He was feeling well yesterday and [place] He is compliant with his meds as always. Currently feels well. He notes having a cough over the past few days. ROS ROS: CONSTITUTIONAL: denies fever, chills, weight loss, weight gain HEENT: denies headaches, any vertigo, any sore throat or rhinorrhea. Eyes: No double or blurred vision or eye pain. GASTROINTESTINAL: The patient denies any nausea, vomiting, diarrhea or abdominal pain. GENITOURINARY: denies dysuria, frequency, urgency or hematuria. MUSCULOSKELETAL: also denies myalgias, arthralgias or edema. SKIN: denies rash or jaundice NEUROLOGIC: denies weakness, dizziness, focal neurological change or headache. PSYCHIATRIC: denies history of depression in the past, any suicidal ideation. substance abuse. ENDOCRINE: denies polyuria, polydipsia or hot or cold intolerance. HEMATOLOGIC: denies history of easy bruising, anemia or eczema. PMH/Family/Social Past Medical History Acute on chronic systolic/diastolic heart failure: HTN CAD s/p CABG/PCI Ischemic cardiomyopathy: EF ~20-25% S/p ICD for secondary prevention CKD likely 2/2 diuretics PVD Prev Tobacco use R sided Renal artery stenosis Hyperuricemia Past Surgical History Past Surgical Hx: coronary bypass surgery, other Social History Alcohol Use: rarely Smoking Status: Former smoker Drug Use: none Exam/Review of Systems Vital Signs Vitals VS - Last 72 Hours, by Label Date Time Temp Pulse Resp B/P Pulse Ox O2 Delivery O2 Flow Rate FiO2 08/16/16 12:24 81 08/16/16 11:04 98.4 79 18 160/80 92 08/16/16 08:55 83 08/16/16 08:22 87 18 155/85 97 Nasal Cannula 2.0 08/16/16 07:38 20 166/90 94 Nasal Cannula 2.0 08/16/16 07:13 104 20 184/102 96 Nasal Cannula 2.0 08/16/16 07:00 Nasal Cannula 08/16/16 06:55 Nasal Cannula 2 08/16/16 06:49 98.4 104 18 218/114 95 Vital Signs Date Time Temp Pulse Resp B/P Pulse Ox O2 Delivery O2 Flow Rate FiO2 08/16/16 12:24 81 08/16/16 11:04 98.4 18 160/80 92 08/16/16 08:22 Nasal Cannula 2.0 Exam Exam GENERAL: Patient is alert, oriented x 3, in no apparent distress; does not appear acutely or chronically ill. Patient is able to sit up unassisted.Patient makes good eye contact, is conversant, interactive, coherent. Patient appears calm and comfortable and is able to follow commands. HEENT: Oropharynx is clear. There is no carotid bruit, no masses. Patient's pupils are equal, round and reactive to light bilaterally. Extraocular motions are intact. There is no scleral icterus. There is no facial asymmetry. NECK: Supple. LUNGS: Clear to auscultation bilaterally with good air entry. No Wheezes or crackles. HEART: S1, S2. No murmur, gallops or rubs. Regular rate and rhythm. ABDOMEN: Soft, nontender. Normoactive bowel sounds. There are no stigmata of chronic liver disease. BACK: no costovertebral angle tenderness. GENITOURINARY: Deferred. EXTREMITIES: No edema. There is no cyanosis, clubbing. There are 2+ pulses bilaterally distally. NEUROLOGIC: The patient has no lateralizing signs. Cranial nerves II-XII are intact. SKIN: Otherwise, unremarkable. Labs Result Diagram: 08/16/16 0650 08/16/16 0650 Medications Medications Current Medications Aspirin (Aspirin) 81 mg DAILY PO ; Start 08/17/16 at 09:00 Clopidogrel Bisulfate (plaVIX) 75 mg DAILY PO Last administered on 08/16/16 12 :24; Admin Dose 75 MG; Start 08/16/16 at 12:00 Carvedilol (Coreg) 12.5 mg BID PO Last administered on 08/16/16 12:24; Admin Dose 12.5 MG; Start 08/16/16 at 12:00 Hydralazine HCl (Apresoline) 50 mg Q8 PO ; Start 08/16/16 at 14:00 Isosorbide Dinitrate (Isordil) 10 mg Q8 PO ; Start 08/16/16 at 14:00 Furosemide (Lasix) 20 mg DAILY PO ; Start 08/17/16 at 09:00 Procedures Procedures Laboratory Tests Test 08/16/16 06:50 White Blood Count 12.410^3/ul Red Blood Count 4.2910^6/ul Hemoglobin 12.5g/dl Hematocrit 39.0% Mean Corpuscular Volume 90.9fl Mean Corpuscular Hemoglobin 29.1pg Mean Corpuscular Hemoglobin Concent 32.1g/dl Red Cell Distribution Width 13.0% Platelet Count 05214^3/UL Mean Platelet Volume 10.8fl Neutrophils % 62.1% Lymphocytes % 23.0% Monocytes % 9.9% Eosinophils % 3.6% Basophils % 0.6% Nucleated Red Blood Cells % 0.0/100WBC Neutrophils # 7.710^3/ul Lymphocytes # 2.810^3/ul Monocytes # 1.210^3/ul Eosinophils # 0.410^3/ul Basophils # 0.110^3/ul Nucleated Red Blood Cells # 0.010^3/ul Prothrombin Time 13.2Sec Prothrombin Time Ratio 1.0 INR International Normalized Ratio 1.00 Activated Partial Thromboplast Time 34.4Sec Sodium Level 140mmol/L Potassium Level 4.1mmol/L Chloride Level 102mmol/L Carbon Dioxide Level 29mmol/L Anion Gap 13 Blood Urea Nitrogen 33mg/dl Creatinine 2.21mg/dl Glucose Level 149mg/dl Calcium Level 9.6mg/dl Troponin I 0.119ng/ml Echocardiogram Report Patient Name: JUANIS PA Gender: Male Date: 1950 Study Date: 20-Feb-2016 Microbiology Lab Analyst: Roman Almeida RDCS Location: [id number] Ref. Physician: EMILY TREVIÑO Quality: Good Procedures: Transthoracic echocardiogram with complete 2D, M-Mode, and doppler examination. Indications: Evaluate Left Ventricular function. 2D/M Mode Doppler Measurement Value Normal Ranges Measurement Value Normal Ranges LVIDd 2D 6.7 3.5 - 5.6 cm AV Peak Nathan 1.3 m/sec LVIDs 2D 6.5 2.1 - 4.1 cm AV Peak PG 7.3 mmHg LVPWd 2D 1.1 0.6 - 1.1 cm LVOT Peak Nathan 0.7 m/sec IVSd 2D 1.2 0.6 - 1.1 cm LVOT Peak PG 2.2 mmHg AoR Diam 2D 3.1 2.0 - 3.7 cm MV E Peak Nathan 1.1 m/sec EDV 2D 228.4 cm3 MV A Peak Nathan 0.8 m/sec ESV 2D 270.6 cm3 MV E/A 1.3 LA Dimen 2D 4.5 2.3 - 4.0 cm MV Decel Time 97 msec MV Decel [place] 11 MV E/A 1.3 TR Peak Nathan 3.2 m/sec TR Peak PG 41.5 mmHg RVSP 57.0 mmHg Findings Left Ventricle: Mild concentric left ventricular hypertrophy. Moderate enlargement of left ventricle cavity. Severe global left ventricular systolic dysfunction. Ejection fraction is visually estimated at 20 %. Tissue Doppler/Mitral Doppler indices are consistent with pseudonormalization with mildly elevated left atrial pressure (Stage II diastolic dysfunction). Resting Segmental Wall Motion Analysis: There is severe hypokinesis/akinesis of the septum and apex. There is hypokinesis of the anterior wall. There is akinesis of the inferior wall. The inferolateral and anterolateral gallagher appear to contract comparatively better. Right Ventricle: Mild right ventricular hypokinesis. Left Atrium: There is moderate enlargement of left atrium. Right Atrium: There is moderate enlargement of right atrium. Mitral Valve: Mitral valve leaflets appear mildly thickened. Mild mitral annular calcification. Mild to moderate mitral valve regurgitation. Aortic Valve: No significant aortic stenosis or insufficiency. Aortic cusps appear mildly calcified. Tricuspid Valve: Normal appearance of the tricuspid valve. Estimated peak PA systolic pressure 49 mmHg. There is mild to moderate tricuspid regurgitation. Pulmonic Valve: There is mild pulmonic regurgitation. Pericardium: Normal pericardium with no significant pericardial effusion. Aorta: Normal aortic root. IVC: Dilated IVC with respiratory collapse consistent with elevated right atrial pressure. Pulmonary Artery: Normal pulmonary artery size. Conclusions Moderate enlargement of left ventricle cavity. Severe global left ventricular systolic dysfunction. Ejection fraction is visually estimated at 20 %. Mild LVH. Stage II diastolic dysfunction. There is severe hypokinesis/akinesis of the septum and apex. There is hypokinesis of the anterior wall. There is akinesis of the inferior wall. The inferolateral and anterolateral gallagher appear to contract comparatively better. Mild to moderate mitral valve regurgitation. Mild to moderate tricuspid regurgitation. PA pressure is estimated to be 49 mmHg based on RA pressure of 8 mmHg. Electronically Signed By: Emily Treviño 21-Feb-2016 15:52:59 -0800 Patient Name: JUANIS PA Study Date: 20-Feb-2016 [id number] PROCEDURE: XR Chest 1 view. CLINICAL INDICATION: Chest pain TECHNIQUE: AP views of the chest were obtained. COMPARISON: May 22, 2016 FINDINGS: The heart is large. Calcified atherosclerosis is noted in the aorta. Left- sided dual chamber pacemaker has its leads over the heart and appears stable. Median sternotomy wires are seen overlying the heart. The lungs are hyperexpanded. Central pulmonary vascular congestion and interstitial prominence is seen in both lungs. Superimposed mild alveolar infiltrates are seen in the bilateral mid and lower lungs. 6.9 cm rounded right suprahilar density continues to be seen. The osseous structures are osteopenic, but appear grossly intact IMPRESSION: Cardiomegaly with calcified atherosclerosis in the aorta. Central pulmonary vascular congestion and interstitial prominence in both lungs. Superimposed potential mild alveolar infiltrates in the bilateral mid and lower lungs. Continued 6.9 cm rounded right suprahilar density. Finding could reflect mediastinal and hilar adenopathy or mass. Further characterization with CT chest continues to be recommended. Hyperexpanded lungs. RPTAT: AA .João Rivas MD, Date Time Electronically viewed and signed by .João Rivas MD, on 08/16/2016 07:36 .P/ CC: BISHOP VENTURA MD, BOLATITO M. August 16, 2016 13:18
[2016-08-16] MEDS: ISOSORBIDE DINITRATE 10 MG TAB PO SCH ×2 (14:00→21:30)
[2016-08-16 15:58] LABS: CK-MB 3.91 ng/ml (0.0-2.4); TROPONIN-I 0.131 ng/ml (0.00-0.12)
--- NOTE | 2016-08-16 17:42 | CONS ---
DATE OF ADMISSION: 08/16/2016 DATE OF CONSULTATION: 08/16/2016 TYPE OF CONSULTATION: Nephrology PHYSICIAN REQUESTING CONSULT: Dr. Spaulding HISTORY OF PRESENT ILLNESS: This is a 65-year-old male well known to me with a past medical history of chronic kidney disease stage III/IV with a baseline creatinine around 2 mg/dL, history of ischem ic cardiomyopathy with ejection fraction of 20%, history of refractory hypertension, dyslipidemia, r ecent history of flash pulmonary edema with possibility of renal artery stenosis, who presents to [facility] with complaints of shortness of breath. The patient this morning was pe nding a renal artery angiogram. He then developed shortness of breath and chest pain. The patient had called the paramedics and was brought into the emergency room where he was noted to be hypertens bernadine with systolic pressures greater than 200 with chest x-ray findings consistent with pulmonary yasmani ma. The patient was given Lasix in the emergency room with clinical improvement, and was admitted t o telemetry for evaluation. In terms of the patient's renal history, the patient has underlying CKD with previous baseline creat inines ranging between 2 to 3 mg/dL. Most recently, the patient had acute kidney injury with elevat ion in creatinine to 3.5 mg/dL. However, the patient's renal function has been returning back to pr evious baseline. The patient denies any current episodes of hematuria, hemoptysis, hematemesis or h ematochezia, no frothy urine. PAST MEDICAL HISTORY: As stated above, history of chronic kidney disease stage IV, history of ische milly cardiomyopathy, coronary artery disease, peripheral vascular disease, history of possible renal artery stenosis, history of flash pulmonary edema, history of coronary artery bypass graft. PAST SURGICAL HISTORY: Status post CABG, status post PCI. SOCIAL HISTORY: Former smoker. FAMILY HISTORY: Noncontributory. MEDICATIONS: The patient's medications have been reviewed. REVIEW OF SYSTEMS: A 14-point review of systems was conducted. Pertinent positives stated in HPI, otherwise negative. PHYSICAL EXAMINATION: VITAL SIGNS: Blood pressure is 160/80, respiration 18, pulse 79, temperature 98.4. HEENT: Head is normocephalic. Pupils are reactive to light. NECK: Supple. HEART: Regular rate. LUNGS: Show diminished breath sounds at the base. ABDOMEN: Soft, nontender to palpation, no rebound or guarding. EXTREMITIES: Negative for clubbing, cyanosis, no edema. DERMATOLOGIC: No rashes. MUSCULOSKELETAL: No joint effusions. NEUROLOGIC: No focal deficits. MEDICATIONS: The patient's medications have been reviewed. LABORATORY DATA: Showed sodium 140, potassium 4.1, chloride 102, BUN 33, creatinine 2.21. White co unt 12.4, hemoglobin 10.5, hematocrit 39.0, platelet count is 544. ASSESSMENT AND PLAN: This is a 65-year-old male who presents with: 1. Nonoliguric acute kidney injury on top of chronic kidney disease stage IV with a baseline creati nine between 2 and 2.5 mg/dL. The patient's renal function is currently returning back to baseline. Etiology of most recent acute kidney injury was likely from acute tubular necrosis. At this point , would continue current treatment plan. Continue supportive care, renally dose meds, avoid nephrot oxins. Will check UA with microanalysis. Will continue diuretic therapy. Monitor closely. 2. Hypertensive urgency. Etiology is concerning for secondary causes including possible renal martha ry stenosis. The patient is pending a renal angiogram. The patient has had previous secondary work up including 25 urine metanephrines, which did not show findings consistent with pheochromocytoma. At this point, continue current medical management. Proceed with further evaluation of renal artery stenosis. Continue current blood pressure regimen. 3. Anemia. Continue to monitor hemoglobin and hematocrit levels. 4. Mineral bone disorder. Monitor calcium and phosphorus levels. No need for phosphate binders. 5. Acute congestive heart failure exacerbation, flash pulmonary edema. Etiology is concerning for r enal artery stenosis. The patient is pending a renal angiogram today. Continue diuretic regimen an d monitor. 6. History of coronary artery disease, status post percutaneous coronary intervention. Continue me dical management. 7. History of ischemic cardiomyopathy. Continue current medical management. 8. History of arrhythmia, status post ICD placement. Thank you, Dr. Spaulding, for this interesting consult. It will be a pleasure to follow patient with you throughout the hospital course. Dictated By: MARILYN HUFF DO NR/NTS Conf#: [id number] DID#: [id number] CC: SANJUANITA SPAULDING MD;*EndCC*
--- NOTE | 2016-08-16 18:16 | HP ---
DATE OF ADMISSION: 08/16/2016 TYPE OF CONSULTATION: Vascular surgery consultation. Dear Doctors: Mr. Vance is a 65-year-old gentleman known to our vascular surgery service post-evaluation of multi ple episodes of flash pulmonary edema in which he has been presented to [facility] emergenc y room with sudden shortness of breath and fluid overload in which the patient had to be admitted fo r evaluation. The patient had been seen by us in the outpatient office for evaluation of eventual a ortoiliac angiogram and renal artery angiogram for evaluation for renal artery stenosis. Patient di d have a preliminary workup for possible adrenal tumor with our nephrology colleagues in which his V MA blood work had been evaluated. At the moment, the patient does have some shortness of breath, de nies chest pain, nausea, vomiting, fever or chills. He denies lower extremity rest pain or discomfo rt. Patient does have intermittent claudication. REVIEW OF SYSTEMS: A 12-point review performed and negative except what is mentioned in the HPI. PAST MEDICAL HISTORY: Entails coronary artery disease, chronic kidney disease, creatinine in the 2s , stage II to III, chronic systolic congestive heart failure, cardiomyopathy, ejection fraction of 2 0%, recurrent admissions for flash pulmonary edema, bilateral renal artery stenosis. PAST SURGICAL HISTORY: ICD placement, coronary bypass surgery, multiple coronary artery interventio ns. SOCIAL HISTORY: Positive for smoking in the past. Denies alcohol, tobacco or illicit drug use curr ently. FAMILY HISTORY: Positive for hypertension. PHYSICAL EXAMINATION: GENERAL: Alert and oriented x3, no apparent distress. HEENT: Normocephalic, atraumatic. PERRLA, EOMI. Mucosa moist. NECK: Supple. No carotid bruit. PULMONARY: Clear to auscultation bilaterally. CARDIOVASCULAR: S1, S2 present. ABDOMEN: Soft, nontender, nondistended. Bowel sounds positive. EXTREMITIES: Lower extremities, palpable femoral pulse, nonpalpable pedal pulse. Motor, sensory in tact. Cap refill 2 to 3 seconds. No ulcers. Left lower extremity palpable femoral pulse, nonpalpa ble pedal pulse. Motor, sensory intact. Cap refill 2 to 3 seconds. ASSESSMENT AND PLAN: Bilateral renal artery stenosis. It seems the patient has had recurrent flas h pulmonary edema in which the patient had been admitted to the hospital on multiple occasions over the past month. Patient did go through the appropriate workup with our nephrology colleagues for po ssible adrenal tumor and he had appropriate blood work done which was not diagnostic. Further, the patient had been closely monitored by our cardiology colleagues in which the patient's cardiac statu s has been stabilized. However, his episodes of flash pulmonary edema have not necessarily been wit h clear etiology. We will schedule the patient for urgent aortoiliac angiogram and renal artery genesis ective angiography and possible intervention. Optimize vascular status (BP meds, diet, nutrition, exercise, sugar control, antiplatelets). Discussed findings, plan and management with the patient and his son at the bedside and they underst and. Thank you for allowing us to participate in the care of your patient. Please call with any que stions. Dictated By: STEPHANIE VERA/LUIS Conf#: [id number] DID#: [id number]
[2016-08-16 20:40] LABS: CK-MB 4.1 ng/ml (0.0-2.4); TROPONIN-I 0.151 ng/ml (0.00-0.12)
[2016-08-16] MEDS ORDERED: ACCU-CHEK XX SCH (21:00)
[2016-08-16] MEDS ORDERED: ZOLPIDEM 5 MG TAB PO ONE (23:18)
[2016-08-17] VITALS (13 sets, daily range): BP systolic 133–162; BP diastolic 63–86; PULSE 69–77; RESP 17–21
[2016-08-17] MEDS ORDERED: ZOLPIDEM 5 MG TAB PO ONE ×2 (00:21→21:00)
[2016-08-17] MEDS: ISOSORBIDE DINITRATE 10 MG TAB PO SCH ×3 (06:11→21:05)
[2016-08-17 08:06] LABS: ADD SCAN DIFF NO
[2016-08-17] MEDS: CLOPIDOGREL 75 MG TAB PO SCH (08:23)
[2016-08-17] MEDS: FUROSEMIDE 20 MG TAB PO SCH (08:23)
[2016-08-17] MEDS: ASPIRIN 81 MG TAB PO SCH (08:23)
[2016-08-17 08:31] LABS: BASOPHILS % 0.4 % (0.0-2.0); EOSINOPHILS # 0.3 10^3/ul (0.0-0.5); EOSINOPHILS % 2.8 % (0.0-7.0); HEMATOCRIT 34.8 % (42.0-52.0); HEMOGLOBIN 10.9 g/dl (14.0-18.0); LYMPHOCYTES # 1.6 10^3/ul (0.8-2.9); LYMPHOCYTES % 14.6 % (15.0-51.0); MEAN CORPUSCULAR HEMOGLOBIN 28.6 pg (29.0-33.0); MEAN CORPUSCULAR HGB CONC 31.3 g/dl (32.0-37.0); MEAN CORPUSCULAR VOLUME 91.3 fl (82.0-101.0); MEAN PLATELET VOLUME 11.3 fl (7.4-10.4); MONOCYTE # 1.1 10^3/ul (0.3-0.9); MONOCYTES % 9.7 % (0.0-11.0); NEUTROPHIL # 7.9 10^3/ul (1.6-7.5); PLATELET COUNT 440 10^3/UL (140-415); RED BLOOD COUNT 3.81 10^6/ul (4.70-6.10); RED CELL DISTRIBUTION WIDTH 12.9 % (11.5-14.5)
[2016-08-17 09:01] LABS: ALBUMIN 3.6 g/dl (3.3-4.9); POTASSIUM 3.5 mmol/L (3.5-5.1)
[2016-08-17 09:04] LABS: CALCIUM 8.9 mg/dl (8.4-10.2); CREATININE 2.37 mg/dl (0.61-1.24)
[2016-08-17 09:05] LABS: MAGNESIUM 2.1 mg/dl (1.7-2.5)
--- NOTE | 2016-08-17 09:16 | PN ---
Date/Time of Note Date/Time of Note DATE: 08/17/16 TIME: 09:16 Assessment/Plan VTE Prophylaxis VTE Prophylaxis Intervention: SCD's Lines/Catheters IV Catheter Type (from [facility]): Saline Lock Assessment/Plan Assessment/Plan 1. Acute on chronic systolic/diastolic heart failure: * Patient prone to flashes of active pulmonary edema, usually triggered by stressors. * There is also concern that this could be secondary to renal artery stenosis 2. HTN emergency: resolved / ?2/2 #5? 3. CAD s/p CABG/PCI 4. Ischemic cardiomyopathy: EF ~20-25% S/p ICD for secondary prevention 5. Bilateral renal artery stenosis. * The patient is status post angiogram with bilateral stent placement 08/16/16. 6. CKD 7. PVD 8. Prev Tobacco use 9. Hyperuricemia 10. Chronic stable right-sided lung mass for which patient wants no further intervention or workup 11. Chronic intermittent anxiety/panic attacks PLAN: * Patient's renal function will need to be monitored in-house due to recent angiogram * Will also continue to monitor blood pressure level, and continue gentle diuresis per nephro and cardio. * I spoke with patient about long-acting medication for anxiety, but he wants to stick with as needed Ativan for now. He will benefit from psychiatric review * Continue in-house management for now and continue to follow crm consultant recommendations. We appreciate their review. Exam/Review of Systems Vital Signs Vitals Vital Signs Date Time Temp Pulse Resp B/P Pulse Ox O2 Delivery O2 Flow Rate FiO2 08/17/16 08:08 69 08/17/16 07:54 98.1 17 155/74 97 08/16/16 18:52 Nasal Cannula 2.0 Results Result Diagram: 08/17/16 0613 08/17/16 0613 Results 24 hrs Laboratory Tests Test 08/16/16 14:15 08/16/16 19:45 08/17/16 06:13 Creatine Kinase 48 53 Creatine Kinase Index 8.1 7.7 Creatinine Kinase MB (Mass) 3.91 H 4.10 H Troponin I 0.131 *H 0.151 *H White Blood Count 11.0 H Red Blood Count 3.81 L Hemoglobin 10.9 L Hematocrit 34.8 L Mean Corpuscular Volume 91.3 Mean Corpuscular Hemoglobin 28.6 L Mean Corpuscular Hemoglobin Concent 31.3 L Red Cell Distribution Width 12.9 Platelet Count 440 H Mean Platelet Volume 11.3 H Neutrophils % 72.0 Lymphocytes % 14.6 L Monocytes % 9.7 Eosinophils % 2.8 Basophils % 0.4 Nucleated Red Blood Cells % 0.0 Neutrophils # 7.9 H Lymphocytes # 1.6 Monocytes # 1.1 H Eosinophils # 0.3 Basophils # 0.0 Nucleated Red Blood Cells # 0.0 Sodium Level 140 Potassium Level 3.5 Chloride Level 98 Carbon Dioxide Level 28 Anion Gap 18 H Blood Urea Nitrogen 34 H Creatinine 2.37 H Glucose Level 86 # Calcium Level 8.9 Phosphorus Level 5.0 H Magnesium Level 2.1 Albumin 3.6 Medications Medications Current Medications Aspirin (Aspirin) 81 mg DAILY PO Last administered on 08/17/16 08:23; Admin Dose 81 MG; Start 08/17/16 at 09:00 Clopidogrel Bisulfate (plaVIX) 75 mg DAILY PO Last administered on 08/17/16 08 :23; Admin Dose 75 MG; Start 08/16/16 at 12:00 Carvedilol (Coreg) 12.5 mg BID PO Last administered on 08/17/16 08:24; Admin Dose 12.5 MG; Start 08/16/16 at 12:00 Hydralazine HCl (Apresoline) 50 mg Q8 PO Last administered on 08/17/16 06:11; Admin Dose 50 MG; Start 08/16/16 at 14:00 Isosorbide Dinitrate (Isordil) 10 mg Q8 PO Last administered on 08/17/16 06:11 ; Admin Dose 10 MG; Start 08/16/16 at 14:00 Furosemide (Lasix) 20 mg DAILY PO Last administered on 08/17/16 08:23; Admin Dose 20 MG; Start 08/17/16 at 09:00 Miscellaneous Information (* Miscellaneous Pharmacy Order) HOLD all METFORMIN ... ONCE XX ; Start 08/16/16 at 18:00; Stop 08/18/16 at 17:59 Ondansetron HCl (Zofran Inj) 4 mg Q4H PRN IV NAUSEA AND/OR VOMITING; Start at 18:00 SANJUANITA SPAULDING August 17, 2016 09:16
[2016-08-17] MEDS ORDERED: LORAZEPAM 1 MG TAB PO PRN (09:30)
--- NOTE | 2016-08-17 09:35 | PN ---
DATE: 08/17/2016 SUBJECTIVE: The patient underwent angiogram yesterday with stent placement in bilateral renal arter ies. The patient tolerated procedure well. No other acute events noted. No fevers, chills, nausea , vomiting. OBJECTIVE: VITAL SIGNS: Blood pressure 155/74, respirations 17, pulse 70, temperature 98.1. HEENT: Head is normocephalic. NECK: Supple. HEART: Regular rate. LUNGS: Show diminished breath sounds at the base. ABDOMEN: Soft, nontender to palpation without rebound or guarding. EXTREMITIES: Negative for clubbing, cyanosis, no edema. DERMATOLOGIC: No rashes. MUSCULOSKELETAL: No joint effusions. NEUROLOGIC: No change in exam. MEDICATIONS: The patient's medications have been reviewed. LABORATORY DATA: Currently pending. ASSESSMENT AND PLAN: 1. Nonoliguric acute kidney injury on top of chronic kidney disease stage IV with previous baseline creatinine between 2 to 2.5 mg/dL. The patient's renal function currently is near baseline. The p atient is status post angiogram with bilateral renal artery stenting. Will monitor closely for sign s of atheroembolic acute tubular necrosis. At this point, would otherwise continue supportive care, renally dose all meds, avoid nephrotoxins. 2. Bilateral renal artery stenosis. The patient is status post angiogram with bilateral stent plac ement. Will continue to monitor renal function closely. 3. Hypertensive urgency. Etiology is possibly due to bilateral renal artery stenosis. The patient is status post stenting as stated above. Continue current medical management. 4. Anemia. Continue to monitor hemoglobin and hematocrit levels. 5. Mineral bone disorder. Continue to monitor calcium and phosphorus levels. 6. Acute congestive heart failure exacerbation with flash pulmonary edema. Etiology is likely from renal artery stenosis. The patient is status post intervention as stated above. Continue current m edical management. 7. History of coronary artery disease, status post PCI. 8. History of ischemic cardiomyopathy. 10. History of arrhythmia, status post ICD placement. Dictated By: MARILYN SANTOS/LUIS Conf#: [id number] DID#: [id number]
--- NOTE | 2016-08-17 15:32 | CONS ---
Date/Time of Note Date/Time of Note DATE: 08/17/16 TIME: 15:28 Assessment/Plan Assessment/Plan Chief Complaint/Hosp Course Flash pulmonary edema: multiple admissions for the same. Renal angiography showed bilateral renal artery stenosis s/p stents. Hopefully michael not have recurrence. Hypertensive emergency: SBP 218 on admission. Now better. Presumably from [facility] Bilateral renal artery stenosis: s/p stents to both 08/16/16 Acute on chronic systolic heart failure: EF 20%. Due to above. Almost euvolemic. Will allow to equilibrate with home lasix dose H/o CAD s/p CABG/PCI H/o ICM EF 20%: s/p ICD CKD: Cr slightly worse today. Minimal contrast used but will watch for QASIM -observe in hospital one more night for contrast nephropathy, hopefully d/c tomorrow -lasix 20mg PO daily -continue ASA, plavix, lipitor -coreg, hydralazine, isordil (may need to eventually decrease doses if HTN improves post stenting) - Problems: Consultation Date/Type/Reason Admit Date/Time August 16, 2016 at 07:51 Initial Consult Date 08/16/16 Type of Consultation: Cardiology Referring Provider: SANJUANITA SPAULDING 24 HR Interval Summary Free Text/Dictation s/p bilateral renal artery stents yesterday. Cr slightly higher. BP overall not bad. No complaints . Exam/Review of Systems Vital Signs Vitals Vital Signs Date Time Temp Pulse Resp B/P Pulse Ox O2 Delivery O2 Flow Rate FiO2 08/17/16 15:21 98.1 69 20 136/63 94 08/17/16 08:00 Nasal Cannula 2.0 Exam Constitutional: alert, oriented Psych: no complaints Head: atraumatic, normocephalic Neck: jvd (7cm) Respiratory: crackles/rales (mild), No clear to auscultation Cardiovascular: regular rate and rhythm, No edema, No systolic murmur Gastrointestinal: non-tender, soft Neurological: nl mental status, nl speech Results Result Diagram: 08/17/1661208/17/16612 Results 24 hrs Laboratory Tests Test 08/16/16 19:45 08/17/16 06:13 Creatine Kinase 53 Creatine Kinase Index 7.7 Creatinine Kinase MB (Mass) 4.10 H Troponin I 0.151 *H White Blood Count 11.0 H Red Blood Count 3.81 L Hemoglobin 10.9 L Hematocrit 34.8 L Mean Corpuscular Volume 91.3 Mean Corpuscular Hemoglobin 28.6 L Mean Corpuscular Hemoglobin Concent 31.3 L Red Cell Distribution Width 12.9 Platelet Count 440 H Mean Platelet Volume 11.3 H Neutrophils % 72.0 Lymphocytes % 14.6 L Monocytes % 9.7 Eosinophils % 2.8 Basophils % 0.4 Nucleated Red Blood Cells % 0.0 Neutrophils # 7.9 H Lymphocytes # 1.6 Monocytes # 1.1 H Eosinophils # 0.3 Basophils # 0.0 Nucleated Red Blood Cells # 0.0 Sodium Level 140 Potassium Level 3.5 Chloride Level 98 Carbon Dioxide Level 28 Anion Gap 18 H Blood Urea Nitrogen 34 H Creatinine 2.37 H Glucose Level 86 # Calcium Level 8.9 Phosphorus Level 5.0 H Magnesium Level 2.1 Albumin 3.6 Medications Medications Current Medications Aspirin (Aspirin) 81 mg DAILY PO Last administered on 08/17/16 08:23; Admin Dose 81 MG; Start 08/17/16 at 09:00 Clopidogrel Bisulfate (plaVIX) 75 mg DAILY PO Last administered on 08/17/16 08 :23; Admin Dose 75 MG; Start 08/16/16 at 12:00 Carvedilol (Coreg) 12.5 mg BID PO Last administered on 08/17/16 08:24; Admin Dose 12.5 MG; Start 08/16/16 at 12:00 Hydralazine HCl (Apresoline) 50 mg Q8 PO Last administered on 08/17/16 14:11; Admin Dose 50 MG; Start 08/16/16 at 14:00 Isosorbide Dinitrate (Isordil) 10 mg Q8 PO Last administered on 08/17/16 14:11 ; Admin Dose 10 MG; Start 08/16/16 at 14:00 Furosemide (Lasix) 20 mg DAILY PO Last administered on 08/17/16 08:23; Admin Dose 20 MG; Start 08/17/16 at 09:00 Miscellaneous Information (* Miscellaneous Pharmacy Order) HOLD all METFORMIN ... ONCE XX ; Start 08/16/16 at 18:00; Stop 08/18/16 at 17:59 Ondansetron HCl (Zofran Inj) 4 mg Q4H PRN IV NAUSEA AND/OR VOMITING; Start at 18:00 Lorazepam (Ativan) 1 mg Q8 PRN PO anxiety Last administered on 08/17/16t 11:18 ; Admin Dose 1 MG; Start 08/17/16 at 09:30 EMILY TREVIÑO August 17, 2016 15:32
[2016-08-17] MEDS ORDERED: LORAZEPAM 0.5 MG TAB PO PRN ×2 (19:31→20:00)
[2016-08-18] VITALS (7 sets, daily range): BP systolic 122–149; BP diastolic 60–88; PULSE 69–72; RESP 17–20
--- NOTE | 2016-08-18 00:45 | PN ---
Date/Time of Note Date/Time of Note DATE: 08/18/16 TIME: 00:40 Assessment/Plan Lines/Catheters IV Catheter Type (from [facility]): Saline Lock [place] in Place (from [facility]): No Assessment/Plan Chief Complaint/Hosp Course Bilateral renal artery stenosis. It seems the patient has had recurrent flash pulmonary edema in which the patient has been admitted to the hospital on multiple occasions over the past month. Patient did go through the appropriate workup with our nephrology colleagues for possible adrenal tumor and he had appropriate blood work done which was not diagnostic. Further, the patient had been closely monitored by our cardiology colleagues in which the patient's cardiac status has been stabilized. However, his episodes of flash pulmonary edema have not necessarily been with clear etiology. -S/P Aortoiliac CO2 angiogram, Bilateral Renal Artery stenting and Angioplasty -Consider Antiplatelet therapy if pt can tolerate (ASA/Plavix) -Optimize vascular status (BP meds, diet, nutrition, exercise, sugar control, antiplatelets). -Discussed findings, plan and management with the patient and his son at the bedside and they understand. -Thank you for allowing us to participate in the care of your patient. Please call with any questions. Problems: Subjective 24 Hr Interval Summary no new vascular events overnight, S/P Angio, Exam/Review of Systems Vital Signs Vitals Vital Signs Date Time Temp Pulse Resp B/P Pulse Ox O2 Delivery O2 Flow Rate FiO2 08/18/16 00:24 69 08/17/16 23:54 98.0 20 133/63 96 08/17/16 08:00 Nasal Cannula 2.0 Intake and Output 08/17/16 08/17/16 08/18/16 15:00 23:00 07:00 Intake Total 360 ml 980 ml Balance 360 ml 980 ml Exam Free Text/Dictation GENERAL: Alert and oriented x3, PULMONARY: Clear to auscultation bilaterally. CARDIOVASCULAR: S1, S2 present. ABDOMEN: Soft, nontender, nondistended. Bowel sounds positive. EXTREMITIES: Right Lower extremities, palpable femoral pulse, no groin hematoma, nonpalpable pedal pulse. Motor, sensory intact. Cap refill 2 to 3 seconds. No ulcers. Left lower extremity palpable femoral pulse, nonpalpable pedal pulse, Motor, sensory intact. Cap refill 2 to 3 seconds. No ulcers. Results Result Diagram: 08/17/16 0613 08/17/16612 STEPHANIE RICHTER MD August 18, 2016 00:45
[2016-08-18] MEDS: ISOSORBIDE DINITRATE 10 MG TAB PO SCH (05:49)
[2016-08-18 07:12] LABS: ADD SCAN DIFF NO
[2016-08-18 07:22] LABS: ABNORMAL IP MESSAGE 1; BASOPHILS % 0.3 % (0.0-2.0); EOSINOPHILS # 0.4 10^3/ul (0.0-0.5); EOSINOPHILS % 3.3 % (0.0-7.0); HEMATOCRIT 33.4 % (42.0-52.0); HEMOGLOBIN 10.8 g/dl (14.0-18.0); LYMPHOCYTES # 0.1 10^3/ul (0.8-2.9); LYMPHOCYTES % 0.8 % (15.0-51.0); MEAN CORPUSCULAR HGB CONC 32.3 g/dl (32.0-37.0); MEAN CORPUSCULAR VOLUME 89.8 fl (82.0-101.0); MEAN PLATELET VOLUME 11.2 fl (7.4-10.4); MONOCYTE # 3.1 10^3/ul (0.3-0.9); MONOCYTES % 25.7 % (0.0-11.0); NEUTROPHIL # 8.3 10^3/ul (1.6-7.5); NEUTROPHILS % 69.5 % (39.0-77.0); PLATELET COUNT 421 10^3/UL (140-415); RED BLOOD COUNT 3.72 10^6/ul (4.70-6.10); RED CELL DISTRIBUTION WIDTH 12.7 % (11.5-14.5); WHITE BLOOD COUNT 11.9 10^3/ul (4.8-10.8)
[2016-08-18 07:46] LABS: ALBUMIN 3.6 g/dl (3.3-4.9); POTASSIUM 3.3 mmol/L (3.5-5.1)
[2016-08-18 07:48] LABS: CREATININE 2.27 mg/dl (0.61-1.24)
[2016-08-18 07:49] LABS: PHOSPHORUS 3.5 mg/dl (2.5-4.9)
[2016-08-18] MEDS ORDERED: POTASSIUM CHLORIDE (SR) 20 MEQ TAB PO STA (08:17)
[2016-08-18] MEDS: CLOPIDOGREL 75 MG TAB PO SCH (08:18)
[2016-08-18] MEDS: ASPIRIN 81 MG TAB PO SCH (08:18)
[2016-08-18] MEDS: FUROSEMIDE 20 MG TAB PO SCH (08:18)
--- NOTE | 2016-08-18 08:57 | PN ---
DATE: 08/18/2016 SUBJECTIVE: The patient is clinically stable. No acute events overnight. No fevers, chills, nause a or vomiting. OBJECTIVE: VITAL SIGNS: Blood pressure is 149/67, respirations 20, pulse 80, temperature 98.2. HEENT: Head is normocephalic. NECK: Supple. HEART: Regular rate. LUNGS: Showed diminished breath sounds at the base. ABDOMEN: Soft, nontender to palpation. No rebound or guarding. EXTREMITIES: Negative for clubbing or cyanosis. No edema. DERMATOLOGIC: No rashes. MUSCULOSKELETAL: Have no joint effusion. NEUROLOGIC: No change in exam. MEDICATIONS: The patient's medications have been reviewed. LABORATORY DATA: Shows sodium 138, potassium 2.3, BUN 34, creatinine 2.27. White count 11.9, hemog lobin 10.8, hematocrit 33.4, platelet count is 421. ASSESSMENT AND PLAN: 1. Nonoliguric acute kidney injury on top of chronic kidney disease stage IV, with a baseline creat inine between 2 to 2.5 mg/dL. The patient's renal function is at baseline. There is no evidence of contrast-associated nephropathy. There is no evidence of ATN at this time. Would recommend to cont inue the current treatment plan, supportive care, renally dose all meds. 2. Bilateral renal artery stenosis, status post bilateral stenting. Continue to monitor renal func tion closely. 3. Hypertensive urgency. Etiology is likely from renal artery stenosis. The patient's blood press ures have been stable. Continue the current blood pressure regimen and deescalate as needed. 4. Anemia. Continue to monitor hemoglobin and hematocrit levels. 5. Mineral bone disorder. Continue to monitor calcium and phos levels. 6. Acute congestive heart failure with flash pulmonary edema. Etiology may have been suffered from renal artery stenosis. The patient is currently euvolemic. Continue medical management. 7. Hypokalemia. Replete potassium chloride. 8. History of coronary artery disease. Status post PCI. 9. History of ischemic cardiomyopathy. 10. History of arrhythmia. Status post ICD placement. Dictated By: MARILYN HUFF DO NR/NTS Conf#: [id number] DID#: [id number]
--- NOTE | 2016-08-18 10:52 | CONS ---
Date/Time of Note Date/Time of Note DATE: 08/18/16 TIME: 10:49 Assessment/Plan Assessment/Plan Chief Complaint/Hosp Course Flash pulmonary edema: multiple admissions for the same. Renal angiography showed bilateral renal artery stenosis s/p stents. Hopefully will not have recurrence. Hypertensive emergency: SBP 218 on admission. Now better. Presumably from [facility] Bilateral renal artery stenosis: s/p stents to both 08/16/16 Acute on chronic systolic heart failure: EF 20%. Due to above. Euvolemic H/o CAD s/p CABG/PCI H/o ICM EF 20%: s/p ICD CKD: Cr stable at 2.2 -ok for d/c. No change in home meds -lasix 20mg PO daily -continue ASA, plavix, lipitor -coreg, hydralazine, isordil (may need to eventually decrease doses if HTN improves post stenting) - Problems: Consultation Date/Type/Reason Admit Date/Time August 16, 2016 at 07:51 Initial Consult Date 08/16/16 Type of Consultation: Cardiology Referring Provider: SANJUANITA SPAULDING 24 HR Interval Summary Free Text/Dictation No o/n events. No complaints. Ready to go home. Exam/Review of Systems Vital Signs Vitals Vital Signs Date Time Temp Pulse Resp B/P Pulse Ox O2 Delivery O2 Flow Rate FiO2 08/18/16 10:23 Nasal Cannula 08/18/16 08:00 71 08/18/16 07:14 98.2 20 149/67 95 08/17/16 08:00 2.0 Intake and Output 08/17/16 08/17/16 08/18/16 15:00 23:00 07:00 Intake Total 360 ml 980 ml 480 ml Balance 360 ml 980 ml 480 ml Exam Constitutional: alert, oriented Psych: no complaints Head: atraumatic, normocephalic Neck: No jvd Respiratory: clear to auscultation, No crackles/rales Cardiovascular: regular rate and rhythm, No edema Gastrointestinal: non-tender, soft Neurological: nl mental status, nl speech Results Result Diagram: 08/18/16 0555 08/18/16 0555 Results 24 hrs Laboratory Tests Test 08/18/16 05:55 White Blood Count 11.9 H Red Blood Count 3.72 L Hemoglobin 10.8 L Hematocrit 33.4 L Mean Corpuscular Volume 89.8 Mean Corpuscular Hemoglobin 29.0 Mean Corpuscular Hemoglobin Concent 32.3 Red Cell Distribution Width 12.7 Platelet Count 421 H Mean Platelet Volume 11.2 H Neutrophils % 69.5 Lymphocytes % 0.8 L Monocytes % 25.7 H Eosinophils % 3.3 Basophils % 0.3 Nucleated Red Blood Cells % 0.0 Neutrophils # 8.3 H Lymphocytes # 0.1 L Monocytes # 3.1 H Eosinophils # 0.4 Basophils # 0.0 Nucleated Red Blood Cells # 0.0 Sodium Level 138 Potassium Level 3.3 L Chloride Level 98 Carbon Dioxide Level 29 Anion Gap 14 Blood Urea Nitrogen 34 H Creatinine 2.27 H Glucose Level 91 Calcium Level 9.0 Phosphorus Level 3.5 Albumin 3.6 Medications Medications Current Medications Aspirin (Aspirin) 81 mg DAILY PO Last administered on 08/18/16 08:18; Admin Dose 81 MG; Start 08/17/16 at 09:00 Clopidogrel Bisulfate (plaVIX) 75 mg DAILY PO Last administered on 08/18/16 08 :18; Admin Dose 75 MG; Start 08/16/16 at 12:00 Carvedilol (Coreg) 12.5 mg BID PO Last administered on 08/18/16 08:20; Admin Dose 12.5 MG; Start 08/16/16 at 12:00 Hydralazine HCl (Apresoline) 50 mg Q8 PO Last administered on 08/18/16 05:49; Admin Dose 50 MG; Start 08/16/16 at 14:00 Isosorbide Dinitrate (Isordil) 10 mg Q8 PO Last administered on 08/18/16 05:49 ; Admin Dose 10 MG; Start 08/16/16 at 14:00 Furosemide (Lasix) 20 mg DAILY PO Last administered on 08/18/16 08:18; Admin Dose 20 MG; Start 08/17/16 at 09:00 Miscellaneous Information (* Miscellaneous Pharmacy Order) HOLD all METFORMIN ... ONCE XX ; Start 08/16/16 at 18:00; Stop 08/18/16 at 17:59 Ondansetron HCl (Zofran Inj) 4 mg Q4H PRN IV NAUSEA AND/OR VOMITING; Start at 18:00 Lorazepam (Ativan) 1 mg Q8 PRN PO anxiety Last administered on 5/18/17at 19:34 ; Admin Dose 1 MG; Start 08/17/16 at 19:31 EMILY TREVIÑO August 18, 2016 10:52
--- NOTE | 2016-08-18 10:59 | PN ---
Date/Time of Note Date/Time of Note DATE: 08/18/16 TIME: 10:58 Assessment/Plan Lines/Catheters IV [facility] (from [facility]): Saline Lock Assessment/Plan Chief Complaint/Hosp Course -Bilateral renal artery stenosis. It seems the patient has had recurrent flash pulmonary edema in which the patient has been admitted to the hospital on multiple occasions over the past month. Patient did go through the appropriate workup with our nephrology colleagues for possible adrenal tumor and he had appropriate blood work done which was not diagnostic. Further, the patient had been closely monitored by our cardiology colleagues in which the patient's cardiac status has been stabilized. However, his episodes of flash pulmonary edema have not necessarily been with clear etiology. -S/P Aortoiliac CO2 angiogram, Bilateral Renal Artery stenting and Angioplasty -Appreciate cardiology and nephrology evaluation and feedback -Consider Antiplatelet therapy if pt can tolerate (ASA/Plavix) -Optimize vascular status (BP meds, diet, nutrition, exercise, sugar control, antiplatelets). -Discussed findings, plan and management with the patient and his son at the bedside and they understand. -Thank you for allowing us to participate in the care of your patient. Please call with any questions. Problems: Subjective 24 Hr Interval Summary no new vascular events overnight Exam/Review of Systems Vital Signs Vitals Vital Signs Date Time Temp Pulse Resp B/P Pulse Ox O2 Delivery O2 Flow Rate FiO2 08/18/16 10:23 Nasal Cannula 08/18/16 08:00 71 08/18/16 07:14 98.2 20 149/67 95 08/17/16 08:00 2.0 Intake and Output 08/17/16 08/17/16 08/18/16 15:00 23:00 07:00 Intake Total 360 ml 980 ml 480 ml Balance 360 ml 980 ml 480 ml Exam Free Text/Dictation GENERAL: Alert and oriented x3, PULMONARY: Clear to auscultation bilaterally. CARDIOVASCULAR: S1, S2 present. ABDOMEN: Soft, nontender, nondistended. Bowel sounds positive. EXTREMITIES: Right Lower extremities, palpable femoral pulse, no groin hematoma, nonpalpable pedal pulse. Motor, sensory intact. Cap refill 2 to 3 seconds. No ulcers. Left lower extremity palpable femoral pulse, nonpalpable pedal pulse, Motor, sensory intact. Cap refill 2 to 3 seconds. No ulcers. Results Result Diagram: 08/18/16 0555 08/18/16 0555 STEPHANIE RICHTER MD August 18, 2016 10:59
--- NOTE | 2016-08-18 11:07 | RADRPT ---
Echocardiogram Report Patient Name: JUANIS PA Gender: Male Date: 1950 Study Date: 18-Aug-2016 Lead Mobile Developer: Nery Swenson SUKHJINDER Location: [id number] Ref. Physician: EMILY TREVIÑO Quality: Adequate Procedures: Transthoracic echocardiogram with complete 2D, M-Mode, and doppler examination. Indications: Congestive Heart Failure. 2D/M Mode Doppler Measurement Value Normal Ranges Measurement Value Normal Ranges LVIDd 2D 5.8 3.5 - 5.6 cm AV Peak Nathan 1.7 m/sec LVIDs 2D 4.0 2.1 - 4.1 cm AV Peak PG 11.0 mmHg FS 2D 30.9 % LVOT Peak Nathan 1.0 m/sec LVPWd 2D 1.0 0.6 - 1.1 cm LVOT Peak PG 4.0 mmHg IVSd 2D 1.1 0.6 - 1.1 cm MV E Peak Nathan 0.9 m/sec IVS/LVPW 2D 1.1 MV A Peak Nathan 1.0 m/sec AoR Diam 2D 3.0 2.0 - 3.7 cm MV E/A 0.9 LA/Ao 2D 1 0 - 1 MV Decel Time 144 msec EDV 2D 194.0 cm3 MV E/A 0.9 ESV 2D 64.0 cm3 LA Dimen 2D 3.7 2.3 - 4.0 cm Findings Left Ventricle: Normal left ventricular cavity size. Mild concentric left ventricular hypertrophy. Severe left ventricular systolic dysfunction. Ejection fraction is visually estimated at 25 %. Tissue Doppler/Mitral Doppler indices are consistent with impaired relaxation (Stage I diastolic dysfunction). Resting Segmental Wall Motion Analysis: Global hypokinesis but worse in the inferolateral, inferior, and inferoseptal gallagher. Right Ventricle: Normal right ventricular size. Normal right ventricular systolic function. Linear artifact in right ventricle suggestive of catheter, pacer lead, or ICD lead. Left Atrium: There is mild enlargement of left atrium. Right Atrium: The right atrium is normal in size. Mitral Valve: Mitral valve leaflets appear mildly thickened. Mild mitral annular calcification. Mild mitral valve regurgitation. Aortic Valve: No significant aortic stenosis or insufficiency. Aortic cusps appear mildly calcified. Tricuspid Valve: Normal appearance of the tricuspid valve. Unable to obtain RVSP due to minimal presence of tricuspid regurgitation. Pulmonic Valve: Pulmonic valve not well visualized. Pericardium: Normal pericardium with no significant pericardial effusion. Aorta: Normal aortic root. IVC: Normal size and normal respiratory collapse consistent with normal right atrial pressure. Conclusions 1.Normal left ventricular cavity size. Mild concentric left ventricular hypertrophy. Severe left ventricular systolic dysfunction. Ejection fraction is visually estimated at 25 %. Tissue Doppler/Mitral Doppler indices are consistent with impaired relaxation (Stage I diastolic dysfunction). Global hypokinesis but worse in the inferolateral, inferior, and inferoseptal gallagher. 2.Mild mitral valve regurgitation. 3.Unable to obtain RVSP due to minimal presence of tricuspid regurgitation. RA pressure estimated to be 3 mmHg. Electronically Signed By: Emily Treviño 18-Aug-2016 11:06:43 -0700 Patient Name: JUANIS PA Study Date: 18-Aug-2016 [id number]
--- NOTE | 2016-08-18 11:31 | PDOCDIS ---
Discharge Instructions CONDITION Patient Condition: Good HOME CARE INSTRUCTIONS: Special Diet: CARB CONTROL/ Renal diet ACTIVITY: Activity Restrictions: No Restrictions FOLLOW UP/APPOINTMENTS Appointments Follow up with Cardiology as out-pt Follow up with Nephrology as out-pt GIA WILDER MD August 18, 2016 11:31
[2016-08-18] MEDS ORDERED: LAS20 PO (11:32)
[2016-08-18] MEDS ORDERED: HYDR-3672 PO (11:32)
[2016-08-18] MEDS ORDERED: ATOR10TA65 PO (11:49)
--- NOTE | 2016-08-18 12:57 | DS ---
DATE OF ADMISSION: 08/16/2016 DATE OF DISCHARGE: 08/18/2016 CONSULTANTS: 1. Dr. Nguyễn Zavala. 2. Dr. Bulmaro Jones. 3. Dr. Tacho Bailon. PROCEDURES: A 2D echocardiogram which demonstrated normal left ventricular cavity size. Mild ulises ntric left ventricular hypertrophy. Severe left ventricular systolic dysfunction. Ejection fractio n visually estimated at 25%. Stage I diastolic dysfunction. Global hypokinesis but worse in the la teral inferior and inferoseptal wall. Mild mitral valve regurgitation. DISCHARGE DIAGNOSES: 1. Acute on chronic systolic congestive heart failure with of active pulmonary edema. Carleen nue Lasix. 2. Essential hypertension, well controlled on medical management. 3. Coronary artery disease status post coronary artery bypass graft and percutaneous coronary inter vention. Continue on aggressive medical management. 4. Ischemic cardiomyopathy status post ICD, ejection fraction of 20% to 25%. Cardiology was consul bakari. Continue medical management. 5. Bilateral renal artery stenosis. The patient is status post angiogram with bilateral stent plac ement on 08/16/2016. Nephrology was consulted. 6. Chronic kidney disease, stable. 7. Peripheral vascular disease. Continue medical management. 8. Chronic stable right-sided lung mass, which patient wants no further intervention or workup. MEDICATIONS: 1. Amiodarone. 2. Aspirin. 3. Coreg. 4. Plavix. 5. Zetia. 6. Lasix 7. Hydralazine. 8. Isosorbide dinitrate. 9. Ambien. 10. Lipitor. ALLERGIES: NO KNOWN DRUG ALLERGIES. HOSPITAL COURSE: This is a 65-year-old gentleman with a past medical history of congestive heart fa ilure, cardiomyopathy, ejection fraction 20%, hypertension, coronary artery disease status post CABG and PCI, chronic kidney disease, peripheral vascular disease, previous tobacco use, hyperuricemia, chronic stable right lung mass, who has been having recurrent admissions for flash pulmonary edema a nd concern for possible renal artery stenosis. Status post ICD, chronic kidney disease with baselin e creatinine has been around 2s. The patient was admitted for sudden acute onset of shortness of br eath, hypertensive urgency with systolic blood pressure 218, flash pulmonary edema. The patient was seen and evaluated by nephrology and vascular surgeon and had renal artery angiography. The patien t was then seen and evaluated by the battery assembler plastic secondary to elevated troponin. The elevated trop onin was likely secondary to renal insufficiency. Regarding his coronary artery disease, the patien t was continued on aggressive medical management and aspirin, Plavix, Zetia. For his flash pulmonar y edema, the patient was placed on Lasix and has been having good diuresis. The patient's breathing status has improved significantly. The patient was seen and evaluated by cardiology and vascular s urgeon and has been cleared at their standpoint for discharge. The patient is asymptomatic without any chest pain, shortness of breath, nausea, vomiting, diarrhea, or any other discomfort. The renal artery is patent as per vascular surgeon. The patient will be set up to follow up with cardiology and nephrology as outpatient. LABORATORY DATA: Sodium 138, potassium 3.3, chloride 98, bicarbonate 29, BUN 34, creatinine 2.27, g lucose 91, albumin 3.6. WBC 11.9, hemoglobin 10.8, hematocrit 33.4, platelets 421. CONDITION AT TIME OF DISCHARGE: Stable. VITAL SIGNS: Temperature 98.1, pulse 68, respirations 17, blood pressure 122/60, oxygen saturation 100%. Dictated By: GIA WILDER MD PN/NTS Conf#: [id number] DID#: [id number]
--- NOTE | 2016-08-20 19:51 | OPR ---
DATE OF OPERATION: 08/16/2016 SURGEON: 1. Tacho Bailon MD 2. Nguyễn Zavala MD, tube balancer. PREOPERATIVE DIAGNOSIS: Flash pulmonary edema. POSTOPERATIVE DIAGNOSES: 1. Flash pulmonary edema. 2. Bilateral renal artery stenosis. ANESTHESIA: Local with sedation. ESTIMATED BLOOD LOSS: Minimal. COMPLICATIONS: None. HEPARIN: As recorded. CONTRAST: Minimal, as we used CO2 angiography and intravascular ultrasound. ACCESS: Right common femoral artery 5-Filipino sheath. CLOSURE: Manual compression and Angio-Seal closure device. SEDATION: Under physician supervision, moderate sedation was administered intravenously under marisol nuous monitoring by the interventional team and attending physician. Pulse oximeter, heart rate, an d blood pressures were continuously monitored by interventional surgeon. The physician's spent time was hour and a half of [id number] sedation time with the patient. INDICATIONS: This is a 65-year-old gentleman who presented with the recurrent history of flash pulm onary edema over the past month. The patient has been admitted to the hospital secondary to these e pisodes. Upon our evaluation, patient underwent blood work for possible adrenal tumor. The studies were nondiagnostic; therefore, an angiogram was suggested. The patient has agreed to proceed. The patient had been informed of the alternatives, risks, and benefits of angiogram, balloon angioplast y, stenting, and the risks included but not limited to bleeding, thrombosis, embolization, myocardia l infarction, , stroke, device malfunction, infection, nephrotoxicity, and the patient has agre ed to proceed. PROCEDURE: 1. Ultrasound-guided access of the right common femoral artery. 2. Aortoiliac angiogram. 3. Second order selection of the right and the left renal arteries. 4. Intravascular ultrasound of the right external iliac artery, right common iliac artery, infraren al aorta, right renal artery, and left renal artery. 5. Aortoiliac CO2 angiography. 6. Angiography of the right renal and left renal arteries with second order selection. 7. Right renal artery balloon angioplasty and stenting using a 6 x [address] balloon mounted [address] ent. 8. Left renal artery angioplasty and stenting using a 6 mm x 14 cm Express balloon mounted stent. FINDINGS: 1. Infrarenal aorta is patent. 2. Left renal artery with proximal stenosis, not well visualized with CO2 angio. 3. ____ renal artery proximal stenosis with CO2 angio not well visualized. 4. Bilateral common iliac arteries are patent. 5. Bilateral internal iliac arteries are patent with moderate disease. 6. Bilateral external iliac arteries are patent with mild disease. 7. Patent splenic artery. 8. Patent celiac trunk. 9. Patent superior mesenteric artery. 10. Patent hepatic artery. 11. Bilateral common femoral arteries are patent. 12. Calcified aorta above the iliac bifurcation. 13. With intravascular ultrasound, stenosis was identified in the orifice of the right and left sarah al arteries. DESCRIPTION OF PROCEDURE: The patient was brought into the angio suite where he was positioned in s upine position on the fluoroscopic table. Sedation was administered without complications. The rig ht groin was shaved and prepped and draped in usual standard sterile fashion. Timeout and appropria te site was marked and confirmed. Local anesthesia was infiltrated in the region of the right commo n femoral artery. The artery was then cannulated with a micro access needle under ultrasound guidan ce and a guidewire was advanced into the common iliac artery under fluoroscopic guidance. The needl e was then removed and a microcatheter was placed. The [employer] wire was then passed into the infrar enal aorta under fluoroscopic guidance followed by a 5-Filipino sheath over the wire. The sheath was then appropriately flushed with heparinized saline solution. Subsequently, we placed an Omniflush c atheter that was passed into the suprarenal aorta and aortogram and imaging of the bilateral renal a rteries was performed. Further imaging of the iliac arteries was performed. Findings were noted ab ove. At this point, the Omniflush catheter was removed from the sheath and, using a SOS-2 catheter the right renal artery and left renal artery were selected in a second order fashion. A CO2 angiogr am was performed of each renal artery. At this point, using an 0.014 Spartacore wire, the right sarah al artery was visualized after removing the SOS-2 catheter with intravascular ultrasound and stenosi s was identified at the orifice of the right renal artery. Following that, we went ahead and select ed the left renal artery and with the SOS catheter once again, a Spartacore 0.014 wire was placed in the distal segmental artery. Intravascular ultrasound was also performed of the left renal artery that identified moderate stenosis of the orifice of the renal artery. At this point, it was decided to perform a selective angiogram of the left renal artery, as the findings with intravascular ultra sound. Upon obtaining, it was identified the patient has severe stenosis in the proximal aspect of the left renal artery. Using a 6 x 14 mm expressed balloon mounted stent was placed and deployed at the orifice of the left renal artery and balloon angioplasty was performed. Subsequently, a comple tion angiogram identified patent flow with no residual stenosis of the left renal artery. Upon comp letion of this aspect, we went ahead and used a SOS-2 catheter to select the right renal artery. A Spartacore wire was then placed and a segmental branch of the right renal. Using a 6 x 18 mm Expres s balloon mounted stent, the right renal artery was also stented with the balloon mounted, as there was moderate to severe stenosis. A completion angiogram identified no residual stenosis identified and inflow of the right renal. At this point, all catheters, wires, and sheaths were removed. Berta o-Seal closure device was used to deploy in the right common femoral artery. The patient was given intravenous heparin throughout our procedure. The patient tolerated procedure well and was taken to the postanesthesia care unit in stable condition. Dictated By: TACHO VERA/LUIS Conf#: [id number] DID#: [id number] CC: SANJUANITA SPAULDING MD;*End*
== END 2016-08-18 13:35 | disposition home or self-care (01) | DRG 252 ==
LOC: E/R 06:46 → TEL 07:51
PROVIDERS: ADMIT Family Medicine; ATTEND Family Medicine
PROC: 047A3DZ Dilation of Left Renal Artery with Intraluminal Device, Percutaneous Approach (ICD-10-PCS; principal; 2016-08-16)
PROC: 04793DZ Dilation of Right Renal Artery with Intraluminal Device, Percutaneous Approach (ICD-10-PCS; 2016-08-16)
PROC: B418ZZZ Fluoroscopy of Bilateral Renal Arteries (ICD-10-PCS; 2016-08-16)
DX: I13.0 Hypertensive heart and chronic kidney disease with heart failure and stage 1 through stage 4 chronic kidney disease, or unspecified chronic kidney disease (principal); I50.23 Acute on chronic systolic (congestive) heart failure; N17.0 Acute kidney failure with tubular necrosis; N18.4 Chronic kidney disease, stage 4 (severe); I70.1 Atherosclerosis of renal artery; I25.10 Atherosclerotic heart disease of native coronary artery without angina pectoris; I16.0 Hypertensive urgency; I73.9 Peripheral vascular disease, unspecified; E87.6 Hypokalemia; D64.9 Anemia, unspecified; F41.0 Panic disorder [episodic paroxysmal anxiety]; I25.5 Ischemic cardiomyopathy; E79.0 Hyperuricemia without signs of inflammatory arthritis and tophaceous disease; Z82.49 Family history of ischemic heart disease and other diseases of the circulatory system; R91.8 Other nonspecific abnormal finding of lung field; Z95.1 Presence of aortocoronary bypass graft; Z87.891 Personal history of nicotine dependence; Z95.5 Presence of coronary angioplasty implant and graft; Z95.810 Presence of automatic (implantable) cardiac defibrillator; T50.2X5A Adverse effect of carbonic-anhydrase inhibitors, benzothiadiazides and other diuretics, initial encounter
CPT/HCPCS: 36415; 71010; 75710; 75724; 80048; 80069; 82550; 82553; 83735; 84484; 85025; 85610; 85730; 87081; 92984; 93005; 93306; 96374; 96375; J1940; C1760; C1769; C1887; C1894; J2270; J2405

== ENCOUNTER 2016-08-20 03:31 | Inpatient (IN) | payer MEDICARE, OTHER ==
[~2016-08-20] VITALS: Ht 167.6 cm; Wt 69.2 kg
[2016-08-20] VITALS (7 sets, daily range): BP systolic 148–158; BP diastolic 68–73; PULSE 74–76; RESP 17–20; TEMP 98.1; Ht 167.6 cm; Wt 69.2 kg
[~2016-08-20 03:31] MED LIST changes: -AMIO100T4 PO; +AMIO200T2 PO; +ATOR10TA65 PO; -ATOR80TA75 PO; +CLOP75TA27 PO; -CLOP75TA28 PO; -IPRA4AER INHALATION
[2016-08-20] MEDS ORDERED: ASPIRIN 325 MG TAB PO STA (03:43)
[2016-08-20] MEDS ORDERED: LABETALOL HCL 20MG INJ IV ONE (04:00)
[2016-08-20 04:13] LABS: ADD SCAN DIFF NO
[2016-08-20 04:17] LABS: ABNORMAL IP MESSAGE 1; BASOPHIL # 0.1 10^3/ul (0.0-0.1); BASOPHILS % 0.7 % (0.0-2.0); EOSINOPHILS # 0.6 10^3/ul (0.0-0.5); EOSINOPHILS % 3.4 % (0.0-7.0); HEMATOCRIT 35.6 % (42.0-52.0); LYMPHOCYTES # 3.8 10^3/ul (0.8-2.9); LYMPHOCYTES % 21.2 % (15.0-51.0); MEAN CORPUSCULAR HEMOGLOBIN 28.6 pg (29.0-33.0); MEAN CORPUSCULAR HGB CONC 30.9 g/dl (32.0-37.0); MEAN CORPUSCULAR VOLUME 92.7 fl (82.0-101.0); MEAN PLATELET VOLUME 11.3 fl (7.4-10.4); MONOCYTE # 1.9 10^3/ul (0.3-0.9); MONOCYTES % 10.8 % (0.0-11.0); NEUTROPHIL # 11.2 10^3/ul (1.6-7.5); NEUTROPHILS % 63.1 % (39.0-77.0); PLATELET COUNT 609 10^3/UL (140-415); RED BLOOD COUNT 3.84 10^6/ul (4.70-6.10); RED CELL DISTRIBUTION WIDTH 13.1 % (11.5-14.5); WHITE BLOOD COUNT 17.8 10^3/ul (4.8-10.8)
--- NOTE | 2016-08-20 04:26 | RADRPT ---
PROCEDURE: XR Chest. CLINICAL INDICATION: Chest Pain. TECHNIQUE: Portable single view of the chest COMPARISON: 08/16/2016 FINDINGS: Again seen is cardiomegaly and median sternotomy wires. Dual-chamber pacemaker. Right paramediastin al mass is again seen. Changes of congestive heart failure with pulmonary vascular congestion and i nterstitial edema is similar to prior. No large effusion. IMPRESSION: No significant interval change. Congestive heart failure and possible long or mediastinal mass. CT is again recommended. RPTAT: [facility] Physician Livia Date Time Electronically viewed and signed by Jacqiu Alvarez Physician on 08/20/2016 04:26 LE/
[2016-08-20 04:38] LABS: POTASSIUM 4.8 mmol/L (3.5-5.1)
[2016-08-20 04:40] LABS: CREATININE 2.25 mg/dl (0.61-1.24)
[2016-08-20 04:41] LABS: CALCIUM 9.9 mg/dl (8.4-10.2)
[2016-08-20 04:42] LABS: INR 1.12; PROTIME 14.4 Sec (12.2-14.2); PT RATIO 1.1
[2016-08-20 04:43] LABS: PARTIAL THROMBOPLASTIN TIME 34.9 Sec (25.0-35.0)
[2016-08-20 04:52] LABS: TROPONIN-I 0.121 ng/ml (0.00-0.12)
[2016-08-20] MEDS ORDERED: CEFTRIAXONE 1 GM/50 ML (PMX) 50 ML IVPB ONE (05:30)
[2016-08-20] MEDS ORDERED: ACETAMINOPHEN 325 MG TAB PO PRN ×2 (06:00→06:30)
[2016-08-20] MEDS ORDERED: ONDANSETRON 4 MG INJ IV PRN ×2 (06:00→06:30)
[2016-08-20] MEDS ORDERED: FUROSEMIDE 40 MG INJ IV ONE ×2 (06:00→09:00)
--- NOTE | 2016-08-20 06:02 | ERD ---
ER Documentation Chief Complaint Date/Time DATE: 08/20/16 TIME: 05:52 Chief Complaint BIBA RA90, SOB,denies CP HPI 65-year-old male brought in by paramedics in extremis, diaphoretic complaining of extreme shortness of breath going on for the last several hours. He has no chest pain. Denies fevers but has chills currently. Denies cough. ROS All systems reviewed and are negative except as per history of present illness. Medications Home Meds Active Scripts Atorvastatin Calcium (Atorvastatin Calcium) 10 Mg Tablet, 10 MG PO QHS, #30 TAB Prov:GIA WILDER MD 08/18/16 Furosemide (Lasix) 20 Mg Tab, 20 MG PO DAILY, #30 TAB Prov:GIA WILDER MD 08/18/16 Hydralazine Hcl* (Apresoline*) 50 Mg Tab, 50 MG PO Q8, #120 TAB Prov:GIA WILDER MD 08/18/16 Aspirin* (Aspirin* Chew) 81 Mg Tab.chew, 81 MG PO DAILY, #30 TAB.CHEW Prov:GIA WILDER MD 03/07/16 Reported Medications Isosorbide Dinitrate* (Isordil*) 10 Mg Tablet, 10 MG PO TID, TAB 08/16/16 Clopidogrel Bisulfate (Clopidogrel) 75 Mg Tablet, 75 MG PO DAILY, #30 TAB 08/16/16 Carvedilol* (Carvedilol*) 12.5 Mg Tablet, 12.5 MG PO BID, #60 TAB 08/16/16 Amiodarone Hcl* (Amiodarone Hcl*) 200 Mg Tablet, 200 MG PO DAILY, #30 TAB 08/16/16 Ezetimibe* (Zetia*) 10 Mg Tablet, 10 MG PO DAILY, TAB 05/21/16 Zolpidem Tartrate* (Zolpidem Tartrate*) 10 Mg Tablet, 10 MG PO QHS Y for INSOMNIA, #30 TAB 01/25/16 Discontinued Reported Medications Hydralazine Hcl* (Hydralazine Hcl*) 50 Mg Tab, 50 MG PO BID, #120 TAB 08/16/16 Amiodarone Hcl* (Amiodarone Hcl*) 100 Mg Tablet, 100 MG PO DAILY, #30 TAB 05/21/16 Discontinued Scripts Clopidogrel Bisulfate (Clopidogrel) 75 Mg Tablet, 75 MG PO DAILY, #30 TAB 8 Refills Prov:QUIRINO FLORESMACK S. 07/25/16 Furosemide (Lasix) 20 Mg Tab, 20 MG PO BID@06,18 for 30 Days, #60 TAB 3 Refills Prov:MARIA LUZ FLORESP S. 07/25/16 Hydralazine Hcl* (Apresoline*) 50 Mg Tab, 50 MG PO TID, #90 TAB 3 Refills Prov:RYANN FLORESEEP S. 07/25/16 Isosorbide Dinitrate* (Isordil*) 10 Mg Tablet, 10 MG PO TID, #90 TAB 2 Refills Prov:RYANN FLORESEEP S. 07/25/16 Albuterol/Ipratropium* (Combivent Respimat*) 20-100 Mcg/Inh - 4 Gm Aer.w.adap, 1 PUFF INHALATION QID, #1 INHALER 1 Refill Prov:SANJUANITA SPAULDING 07/08/16 Carvedilol* (Carvedilol*) 12.5 Mg Tablet, 12.5 MG PO BID, #60 TAB Prov:GIA WILDER MD 03/07/16 Atorvastatin* (Atorvastatin*) 80 Mg Tablet, 80 MG PO QHS, #30 TAB Prov:GIA WILDER MD 03/07/16 Allergies Allergies: Coded Allergies: No Known Allergy (Unverified , 08/16/16) PMhx/Soc History of Surgery: Yes (Cardiac bypass 03/17) Anesthesia Reaction: No Hx Neurological Disorder: No Hx Respiratory Disorders: Yes (COPD) Hx Cardiac Disorders: Yes (CAD, chronic kidney disease, bilateral renal artery stenosis ) Hx Psychiatric Problems: Yes (anxiety) Hx Miscellaneous Medical Probl: No Hx Alcohol Use: No Hx Substance Use: No Hx Tobacco Use: No Smoking Status: Former smoker Physical Exam Vitals Vital Signs Date Time Temp Pulse Resp B/P Pulse Ox O2 Delivery O2 Flow Rate FiO2 08/20/16 05:00 90 19 160/66 100 Non Rebreather 08/20/16 04:38 86 Room Air 08/20/16 04:00 86 22 165/82 100 Non Rebreather 08/20/16 03:40 Bag Valve Mask 10 08/20/16 03:40 98.1 116 25 206/126 100 Non Rebreather 10.0 08/20/16 03:38 98.1 118 25 206/126 100 Physical Exam Const: [] Moderate to severe distress, tachypnea, diaphoretic Head: Atraumatic Eyes: Normal Conjunctiva ENT: Normal External Ears, Nose and Mouth. Neck: Full range of motion..~ No meningismus. Resp: Markedly decreased bibasilar breath sounds, tachypnea Cardio: Regular tachycardia, no murmurs Abd: Soft, non tender, non distended. Normal bowel sounds Skin: No petechiae or rashes, diaphoretic, cool to the touch Ext: No cyanosis, or edema, distal pulses intact Neur: Awake and alert and oriented 3, no focal deficits Psych: Anxious Result Diagram: 08/20/165 08/20/16 034 Results 24 hrs Laboratory Tests Test 08/20/16 03:45 08/20/16 03:55 White Blood Count 17.810^3/ul Red Blood Count 3.8410^6/ul Hemoglobin 11.0g/dl Hematocrit 35.6% Mean Corpuscular Volume 92.7fl Mean Corpuscular Hemoglobin 28.6pg Mean Corpuscular Hemoglobin Concent 30.9g/dl Red Cell Distribution Width 13.1% Platelet Count 86449^3/UL Mean Platelet Volume 11.3fl Neutrophils % 63.1% Lymphocytes % 21.2% Monocytes % 10.8% Eosinophils % 3.4% Basophils % 0.7% Nucleated Red Blood Cells % 0.0/100WBC Neutrophils # 11.210^3/ul Lymphocytes # 3.810^3/ul Monocytes # 1.910^3/ul Eosinophils # 0.610^3/ul Basophils # 0.110^3/ul Nucleated Red Blood Cells # 0.010^3/ul Prothrombin Time 14.4Sec Prothrombin Time Ratio 1.1 INR International Normalized Ratio 1.12 Activated Partial Thromboplast Time 34.9Sec Sodium Level 139mmol/L Potassium Level 4.8mmol/L Chloride Level 99mmol/L Carbon Dioxide Level 27mmol/L Anion Gap 18 Blood Urea Nitrogen 32mg/dl Creatinine 2.25mg/dl Glucose Level 252mg/dl Calcium Level 9.9mg/dl Troponin I 0.121ng/ml B-Type Natriuretic Peptide 98237PW/ML Lactic Acid Level 1.9mmol/L Current Medications Medications (Trade) Dose Ordered Sig/Deanna Route PRN Reason Start Time Stop Time Status Last Admin Dose Admin Aspirin (Aspirin) 325 mg ONCE STAT PO 08/20/16 03:43 08/20/16 03:45 DC 08/20/16 04:00 Labetalol HCl 20 mg 20 mg ONCE ONCE IV 08/20/16 04:00 08/20/16 04:01 DC 08/20/16 03:58 Ceftriaxone Sodium (Rocephin) 50 ml @ 100 mls/hr ONCE ONCE IVPB 08/20/16 05:30 08/20/16 05:59 Furosemide (Lasix) 40 mg ONCE ONCE IV 08/20/16 06:00 08/20/16 06:01 Procedures/MDM Acute congestive heart failure with hypoxia and hypertensive crisis. Patient responds well to oxygen but is hypoxic to 86% without oxygen. He was given aspirin initially. Was given labetalol which treated his hypertension well. That was given Lasix. Initially given a liter of fluid out of concern for possible sepsis. Was given a gram of Rocephin. Patient does have an elevated white count which much may be reactive but no signs of current infection and inability to give further fluids as the patient has congestive heart failure on physical exam, x-ray and by labs. BNP is 14,000. Patient does have a history of being admitted for CHF exacerbations. Patient's elevated creatinine is chronic. Spoke with Dr. Salvador will be admitting the patient to telemetry as his vital signs have stabilized and they feel that he no longer needs the intensive care unit. Patient is feeling much more comfortable. EKG interpretation: Sinus tachycardia rate of 117, left bundle branch block with left axis deviation, unable to see any ST or T-wave changes concerning for acute ischemia. visual basic .net developer interpretation: Sinus tachycardia quickly corrected to normal sinus rhythm Chest x-ray interpretation: Engorgement of pulmonary vessels, CHF, no pneumothorax, no obvious infiltrates, no fractures. Critical care time 41 minutes: This includes treatment of hypoxic respiratory failure secondary to decompensated congestive heart failure, consideration of invasive procedures such as intubation or noninvasive positive pressure ventilation, multiple visits the patient's bedside to reassess status, chart reviewed, discussion with admitting doctor and patient. This does not include any billable procedures. Departure Diagnosis: Primary Impression: Acute respiratory failure with hypoxia Additional Impressions: Acute exacerbation of congestive heart failure Elevated troponin Renal insufficiency Leukocytosis Hyperglycemia Condition: Serious JAYNE LARIOS DO August 20, 2016 06:02
[2016-08-20] MEDS ORDERED: NACL 0.9% 3 ML SYG IV SCH (06:30)
[2016-08-20 06:40] LABS: ADD UMIC YES; URINE BILIRUBIN (Dip) NEGATIVE (NEGATIVE); URINE BLOOD (Dip) 2+ (NEGATIVE); URINE COLOR LT. YELLOW (YELLOW); URINE GLUCOSE (Dip) NEGATIVE (NEGATIVE); URINE KETONES (Dip) NEGATIVE (NEGATIVE); URINE LEUKOCYTE ESTERASE (Dip) NEGATIVE (NEGATIVE); URINE NITRITE (Dip) NEGATIVE (NEGATIVE); URINE TOTAL PROTEIN (Dip) NEGATIVE (NEGATIVE); URINE UROBILINOGEN (Dip) 0.2 E.U./dL (0.1-1.0)
--- NOTE | 2016-08-20 06:44 | HP ---
Date/Time of Note Date/Time of Note DATE: 08/20/16 TIME: 06:19 Assessment/Plan VTE Prophylaxis VTE Prophylaxis Intervention: SCD's Lines/Catheters [facility] Assessment/Plan Chief Complaint/Hosp Course This is a 65-year-old male being admitted to the telemetry unit for: #1 acute respiratory distress: Likely secondary to flash pulmonary edema versus CHF exacerbation. Patient presented with severely high blood pressures in the 200 systolic along with a BNP of 14,000 however there is no lower extremity edema which makes me think that this likely could be primarily flash pulmonary edema. Nonetheless we will treat right now with Lasix IV for diuresis. Continue current home medications. Monitor I's and O's. Will consult nephrology as well as cardiology. #2 elevated troponins: Patient on 08/16 had a elevated troponin of 0.15 and today it is 0.12. He denies any chest pain at this time. We will continue to monitor troponins this possibly could be due to his chronic kidney disease however if they continue to rise we will have have to possibly consider this an NSTEMI. #3 hypertensive emergency: Etiology at this time is unknown though patient does have a previous history of renal artery stenosis but he was stented on his last admission. We will continue to monitor blood pressures. Consider pheochromocytoma. #4 Leukocytosis: Patient has elevated white blood cell count of 17. Currently he is afebrile and there is no overt source of infection noted. This could be reactive. I will order a UA and a CT scan of the chest for further workup. Await cultures. #5: Renal artery stenosis: Status post bilateral stents. We also continue to monitor the patient's blood pressure and consult nephrology for any further recommendations. #6 Severe systolic/diastolic heart failure: Patient has a history of ischemic heart myopathy with an EF of 20% and he is also had a CABG. Will continue current home medications right now will provide IV diuresis. Consult cardiology #6 chronic kidney disease: Patient is nonoliguric. Creatinine appears to be at his baseline around 2.25, avoid nephrotoxic agents renally dose medications. Will consult nephrology. #7 Prediabetes: On review of labs patient has an A1c of 6.3 in May. We will repeat an A1c today. Will monitor patient's blood sugars and put him on a temporary insulin sliding scale. #8 DVT and GI prophylaxis: SCDs, Protonix Further treatment strategy will be implemented as per the clinical course Problems: HPI/ROS Admit Date/Time Admit Date/Time 08/20/2016 Hx of Present Illness Chief complaint: Shortness of breath This is a 65-year-old male with a history of CABG, flash pulmonary edema, and renal artery stenosis status post bilateral stents on 08/16/16 who presents with severe shortness of breath that was going on for the last several hours. Patient's states he was sweating. He denies chest pain. He states that he has been compliant with his medications. He does state that he had wheezing. Upon ER admission patient was found to have systolic blood pressure in the 200s. His oxygenation was 86% on room air. With 2 L nasal cannula he was satting at 99%. He was given labetalol as well as a dose of IV Lasix. Patient did report improvement. Allergies: NKDA Medications: See [place] ROS Const: As per HPI Eyes : No pain discharge or redness or change in visual acuity ENT: No pain, sore throat, congestion, congestion, dysphagia or discharge Respiratory: As per HPI Cardiovascular: As per HPI GI : no change in appetite, abdominal pain, nausea, vomiting, diarrhea, constipation, or change in the color his stool Genitourinary: No dysuria, hematuria, flank pain , discharge or CVA tenderness Musculoskeletal: No joint pain, back pain, neck pain, restricted range of motion in neck or joints Skin: No rash, bruising or hives Neuro: No headache, dizziness, syncope, seizure, focal weakness Endocrine: No polyuria, polydipsia, temperature intolerance Psych: No hallucination, depression, anxiety or suicidal ideation PMH/Family/Social Past Medical History HTN CAD s/p CABG/PCI Ischemic cardiomyopathy: EF ~20-25% S/p ICD for secondary prevention CKD PVD R sided Renal artery stenosis s/p stents Hyperuricemia Past Surgical History CABG, ICD placement, Bilateral Renal Artery stenting and Angioplasty Past Surgical Hx: coronary bypass surgery, other Family History Significant Family History: no pertinent family hx Social History Alcohol Use: rarely Smoking Status: Former smoker Drug Use: none Exam/Review of Systems Vital Signs Vitals Vital Signs Date Time Temp Pulse Resp B/P Pulse Ox O2 Delivery O2 Flow Rate FiO2 08/20/16 05:00 90 19 160/66 100 Non Rebreather 08/20/16 03:40 10 08/20/16 03:40 98.1 Exam Exam General: Patient was initially reported to be diaphoretic and a respiratory distress. When I examined the patient after his ED treatments patient appeared much more stable. HEENT: Atraumatic, normocephalic. The pupils are equal, round and reactive. Extraocular motor are intact Neck: Supple with full range of motion. No rigidity or meningismus Chest: Nontender Lungs: Bilateral wheezing diffusely Heart: Normal S1-S2, Regular rhythm and rate. Abdomen: Soft , nontender, nondistended , bowel sounds are present. No guarding no rebound tenderness , Extremities: Normal to inspection, no edema Neurologic: Normal mental status, speech normal, cranial nerves II through XII are intact, motor and sensory are intact, no focal weakness Additional Comments PROCEDURE: XR Chest. CLINICAL INDICATION: Chest Pain. TECHNIQUE: Portable single view of the chest COMPARISON: 08/16/2016 FINDINGS: Again seen is cardiomegaly and median sternotomy wires. Dual-chamber pacemaker. Right paramediastinal mass is again seen. Changes of congestive heart failure with pulmonary vascular congestion and interstitial edema is similar to prior. No large effusion. IMPRESSION: No significant interval change. Congestive heart failure and possible long or mediastinal mass. CT is again recommended. RPTAT: [facility] Physician Livia Date Time Electronically viewed and signed by Jacqui Alvarez Physician on 08/20/2016 04 :26 EKG: sinus tach at 118 bpm, left bundle branch block, Labs Result Diagram: 08/20/16 0345 08/20/16 0345 Medications Medications Current Medications Lorazepam (Ativan) 0.5 mg Q6H PRN IV ANXIETY; Start 08/20/16 at 06:30; Status UNV Ondansetron HCl (Zofran Inj) 4 mg Q6H PRN IV NAUSEA AND/OR VOMITING; Start at 06:30; Status UNV Furosemide (Lasix) 40 mg BID ONCE IV ; Start 08/20/16 at 09:00; Stop 08/20/16 at 09:01; Status UNV KARYNA SANCHEZ August 20, 2016 06:29
--- NOTE | 2016-08-20 07:10 | RADRPT ---
PROCEDURE: CT Chest without contrast. CLINICAL INDICATION: Shortness of breath. TECHNIQUE: CT scan of the chest was performed on a multi-detector high-resolution CT scanner. Co ntiguous axial images were obtained from the lung apices to the upper abdomen without intravenous co ntrast. Coronal and sagittal reformatted images were also obtained. Images were reviewed on the Power Fingerprinting workstation. One or more of the following dose reduction techniques were used: - Automated exposure control. - Adjustment of the mA and/or kV according to patient size. - Use of iterative reconstruction technique. Exam CTD/vol = 9.27 mGy. Total exam DLP = 404.06 mGy-cm. COMPARISON: None. FINDINGS: There is a left-sided AICD pacemaker. Mediasternotomy wires are present. The visualized thyroid gl and is unremarkable. There are no enlarged axillary lymph nodes. There is a prominent right paratr acheal lymph node measuring 1.3 x 1.5 cm. There are small paratracheal, precarinal and subcarinal l ymph nodes. There are no enlarged hilar lymph nodes; however, study limited by lack of intravenous contrast. The heart is mildly enlarged. There is no pericardial thickening or effusion. The aorta is of normal caliber with scattered atherosclerotic calcifications. There is mild centrolobular emphysema. There is a mass within the posterior right upper lobe extend ing into the superior segment of the right lower lobe measuring 5.8 x 6.6 cm. There are ground-glass opacities and septal thickening consistent with mild congestive failure. There are bilateral small pleural effusions. The central tracheobronchial tree is within normal limits. There is a calcified granuloma within the right lower lobe. The osseous structures are unremarkable. Limited evaluation of the upper abdomen is unremarkable. IMPRESSION: Right upper lobe mass measuring 5.8 x 6.6 cm concerning for neoplastic disease. Mild cardiomegaly and congestive failure with bilateral small pleural effusions. Vascular calcifications reflective of atherosclerosis. Mild mediastinal adenopathy. .Usman Carmona MD, MD Date Time Electronically viewed and signed by .Usman Carmona MD, MD on 08/20/2016 07:10 .T/
[2016-08-20] MEDS ORDERED: DEXTROSE 50% 50 ML SYRINGE IV PRN ×2 (07:30)
[2016-08-20] MEDS ORDERED: GLUCAGON 1 MG INJ IM PRN (07:30)
[2016-08-20] MEDS ORDERED: GLUCOSE GEL 15 GRAM TUBE BUCCAL PRN (07:30)
[2016-08-20] MEDS ORDERED: GLUCOSE GEL 15 GRAM TUBE PO PRN ×2 (07:30)
[2016-08-20] MEDS: INSULIN ASPART [NOVOLOG] 3 ML PEN SC SCH ×4 (10:23→21:00)
[2016-08-20] MEDS: AMIODARONE 200 MG TAB PO SCH (10:26)
[2016-08-20] MEDS: CLOPIDOGREL 75 MG TAB PO SCH (10:27)
[2016-08-20 11:41] LABS: CK-MB 3.2 ng/ml (0.0-2.4)
[2016-08-20 11:54] LABS: TROPONIN-I 0.21 ng/ml (0.00-0.12)
[2016-08-20] MEDS: EZETIMIBE 10 MG TAB PO SCH (15:14)
[2016-08-20] MEDS: ISOSORBIDE DINITRATE 10 MG TAB PO SCH ×2 (15:15→21:04)
[2016-08-20 16:45] LABS: CK-MB 3.29 ng/ml (0.0-2.4); TROPONIN-I 0.235 ng/ml (0.00-0.12)
--- NOTE | 2016-08-20 20:23 | CONS ---
Date/Time of Note Date/Time of Note DATE: 08/20/16 TIME: 20:09 Consult Date/Type/Reason Admit Date/Time August 20, 2016 at 05:50 Initial Consult Date Subjective This is a 65-year-old male with a history of CABG, flash pulmonary edema, and renal artery stenosis status post bilateral stents on 08/16/16 who presents with severe shortness of breath that was going on for the last several hours. The patient was recently discharged from [facility] 2 days ago. He had recent ioana and recent stenting of B renal artery stenosis. Upon ER admission patient was found to have systolic blood pressure in the 200s. His oxygenation was 86% on room air. With 2 L nasal cannula he was satting at 99%. He was given labetalol as well as a dose of IV Lasix. Patient did report improvement. He has had recent stenting of Renal artery stenosis. Objective Vital Signs Date Time Temp Pulse Resp B/P Pulse Ox O2 Delivery O2 Flow Rate FiO2 08/20/16 16:27 98.2 77 17 148/68 90 08/20/16 08:30 Nasal Cannula 2.0 Results/Medications Result Diagram: 08/20/16 0345 08/20/16 0345 Results 24 hrs Laboratory Tests Test 08/20/16 03:45 08/20/16 03:50 08/20/16 03:55 08/20/16 05:35 White Blood Count 17.8 #H Red Blood Count 3.84 L Hemoglobin 11.0 L Hematocrit 35.6 L Mean Corpuscular Volume 92.7 Mean Corpuscular Hemoglobin 28.6 L Mean Corpuscular Hemoglobin Concent 30.9 L Red Cell Distribution Width 13.1 Platelet Count 609 #H Mean Platelet Volume 11.3 H Neutrophils % 63.1 Lymphocytes % 21.2 Monocytes % 10.8 Eosinophils % 3.4 Basophils % 0.7 Nucleated Red Blood Cells % 0.0 Neutrophils # 11.2 H Lymphocytes # 3.8 H Monocytes # 1.9 H Eosinophils # 0.6 H Basophils # 0.1 Nucleated Red Blood Cells # 0.0 Prothrombin Time 14.4 H Prothrombin Time Ratio 1.1 INR International Normalized Ratio 1.12 Activated Partial Thromboplast Time 34.9 Sodium Level 139 Potassium Level 4.8 Chloride Level 99 Carbon Dioxide Level 27 Anion Gap 18 H Blood Urea Nitrogen 32 H Creatinine 2.25 H Glucose Level 252 #H Calcium Level 9.9 Troponin I 0.121 *H B-Type Natriuretic Peptide 08925 H Hemoglobin A1c 5.8 Lactic Acid Level 1.9 1.1 Test 08/20/16 05:45 08/20/16 06:09 08/20/16 10:22 08/20/16 10:41 C-Reactive Protein 3.9 H Urine Color LT. YELLOW Urine Clarity CLEAR Urine pH 6.0 Urine Specific Alda 1.010 Urine Ketones NEGATIVE Urine Nitrite NEGATIVE Urine Bilirubin NEGATIVE Urine Urobilinogen 0.2 E.U./dL Urine Leukocyte Esterase NEGATIVE Urine Microscopic RBC 5-10 Urine Microscopic WBC 0-2 Urine Hemoglobin 2+ H Urine Glucose NEGATIVE Urine Total Protein NEGATIVE Bedside Glucose 99 Lactic Acid Level 0.9 Creatine Kinase 46 Creatine Kinase Index 7.0 Creatinine Kinase MB (Mass) 3.20 H Troponin I 0.210 *H Test 08/20/16 13:13 08/20/16 15:33 08/20/16 17:15 Bedside Glucose 111 136 Creatine Kinase 45 Creatine Kinase Index 7.3 Creatinine Kinase MB (Mass) 3.29 H Troponin I 0.235 *H Medications Current Medications Lorazepam (Ativan) 0.5 mg Q6H PRN IV ANXIETY; Start 08/20/16 at 06:30 Ondansetron HCl (Zofran Inj) 4 mg Q6H PRN IV NAUSEA AND/OR VOMITING; Start at 06:30 Acetaminophen (Tylenol Tab) 650 mg Q6H PRN PO PAIN LEVEL 1-3 OR FEVER; Start at 06:30 Pantoprazole (Protonix Iv) 40 mg DAILY@06 IV ; Start 08/21/16 at 06:00 Amiodarone HCl (Cordarone) 200 mg DAILY PO Last administered on 08/20/16 10:26 ; Admin Dose 200 MG; Start 08/20/16 at 09:00 Aspirin (Aspirin) 81 mg DAILY PO ; Start 08/21/16 at 09:00 Atorvastatin Calcium (Lipitor) 10 mg QHS PO ; Start 08/20/16 at 21:00 Clopidogrel Bisulfate (plaVIX) 75 mg DAILY PO Last administered on 08/20/16 10 :27; Admin Dose 75 MG; Start 08/20/16 at 09:00 EZETIMIBE (Zetia) 10 mg DAILY PO Last administered on 08/20/16 15:14; Admin Dose 10 MG; Start 08/20/16 at 09:00 Hydralazine HCl (Apresoline) 50 mg Q8 PO Last administered on 08/20/16 15:14; Admin Dose 50 MG; Start 08/20/16 at 14:00 Isosorbide Dinitrate (Isordil) 10 mg TID PO Last administered on 08/20/16 15: 15; Admin Dose 10 MG; Start 08/20/16 at 09:00 Carvedilol (Coreg) 12.5 mg BID PO Last administered on 08/20/16 10:27; Admin Dose 12.5 MG; Start 08/20/16 at 09:00 Miscellaneous Information 1 ea NOTE XX ; Start 08/20/16 at 07:30 Glucose (Glutose) 15 gm Q15M PRN PO DECREASED GLUCOSE; Start 08/20/16 at 07:30 Glucose (Glutose) 22.5 gm Q15M PRN PO DECREASED GLUCOSE; Start 08/20/16 at 07: 30 Dextrose (D50w Syringe) 25 ml Q15M PRN IV DECREASED GLUCOSE; Start 08/20/16 at 07:30 Dextrose (D50w Syringe) 50 ml Q15M PRN IV DECREASED GLUCOSE; Start 08/20/16 at 07:30 Glucagon (Glucagen) 1 mg Q15M PRN IM DECREASED GLUCOSE; Start 08/20/16 at 07:30 Glucose (Glutose) 15 gm Q15M PRN BUCCAL DECREASED GLUCOSE; Start 08/20/16 at 07 :30 Diagnostic Test (Pha) (Accu-Chek) 1 ea 02 XX ; Start 08/21/16 at 02:00; Status UNV Diagnostic Test (Pha) (Accu-Chek) 1 ea 02 XX ; Start 08/21/16 at 02:00; Status UNV Assessment/Plan Chief Complaint/Hosp Course 1. Nonoliguric acute kidney injury on top of chronic kidney disease stage IV , with a baseline creatinine between 2 to 2.5 mg/dL. The patient's renal function is no baseline. There is no evidence of contrast-associated nephropathy. There is no evidence of ATN at this time. Would recommend to continue the current treatment plan, supportive care, renally dose all meds. 2. Bilateral renal artery stenosis, status post bilateral stenting. Continue to monitor renal function closely. would benefit from acei. recheck renal artery duplex. 3. Hypertensive urgency. Etiology is likely from noncompliance but need to exclude recurrent renal artery stenosis. The patient's blood pressures have been stable. Continue the current blood pressure regimen and deescalate as needed. 4. Anemia. Continue to monitor hemoglobin and hematocrit levels. 5. Mineral bone disorder. Continue to monitor calcium and phos levels. 6. Acute congestive heart failure with flash pulmonary edema. Etiology may have been suffered from renal artery stenosis. Continue medical management. 7. suspicious lung mass- sp ct. pulm/onc consult. 8. History of coronary artery disease. Status post PCI. 9. History of ischemic cardiomyopathy. 10. History of arrhythmia. Status post ICD placement. Patient's states he was sweating. He denies chest pain. He states that he has been compliant with his medications. He does state that he had wheezing. Problems: MITCHELL VILLAFUERTE MD August 20, 2016 20:19
[2016-08-20] MEDS: ATORVASTATIN 10 MG TAB PO SCH (21:04)
[2016-08-21] VITALS (12 sets, daily range): BP systolic 116–179; BP diastolic 53–88; PULSE 69–90; RESP 17–20
[2016-08-21] MEDS: ACCU-CHEK XX SCH (02:00)
[2016-08-21] MEDS ORDERED: ACCU-CHEK XX SCH (02:00)
[2016-08-21] MEDS ORDERED: PANTOPRAZOLE 40 MG INJ IV SCH (06:00)
[2016-08-21] MEDS: INSULIN ASPART [NOVOLOG] 3 ML PEN SC SCH ×4 (08:00→20:26)
[2016-08-21 08:29] LABS: ADD SCAN DIFF NO
[2016-08-21 08:38] LABS: BASOPHIL # 0.1 10^3/ul (0.0-0.1); BASOPHILS % 0.7 % (0.0-2.0); EOSINOPHILS # 0.4 10^3/ul (0.0-0.5); EOSINOPHILS % 4.6 % (0.0-7.0); HEMATOCRIT 36.2 % (42.0-52.0); HEMOGLOBIN 11.6 g/dl (14.0-18.0); LYMPHOCYTES # 1.8 10^3/ul (0.8-2.9); LYMPHOCYTES % 18.2 % (15.0-51.0); MEAN CORPUSCULAR HEMOGLOBIN 28.8 pg (29.0-33.0); MEAN CORPUSCULAR VOLUME 89.8 fl (82.0-101.0); MEAN PLATELET VOLUME 11.1 fl (7.4-10.4); MONOCYTE # 1.1 10^3/ul (0.3-0.9); NEUTROPHIL # 6.2 10^3/ul (1.6-7.5); NEUTROPHILS % 64.7 % (39.0-77.0); PLATELET COUNT 453 10^3/UL (140-415); RED BLOOD COUNT 4.03 10^6/ul (4.70-6.10); RED CELL DISTRIBUTION WIDTH 12.7 % (11.5-14.5); WHITE BLOOD COUNT 9.6 10^3/ul (4.8-10.8)
[2016-08-21 08:57] LABS: ALBUMIN/GLOBULIN RATIO 1.17; BILIRUBIN,INDIRECT 0.8 mg/dl (0-1.1); BILIRUBIN,TOTAL 0.8 mg/dl (0.2-1.3); CALCIUM 9.3 mg/dl (8.4-10.2); CREATININE 2.14 mg/dl (0.61-1.24); POTASSIUM 3.7 mmol/L (3.5-5.1); TOTAL PROTEIN 7.4 g/dl (6.1-8.1)
[2016-08-21] MEDS: CLOPIDOGREL 75 MG TAB PO SCH (09:14)
[2016-08-21] MEDS: ASPIRIN 81 MG TAB PO SCH (09:14)
[2016-08-21] MEDS: AMIODARONE 200 MG TAB PO SCH (09:14)
[2016-08-21] MEDS: ISOSORBIDE DINITRATE 10 MG TAB PO SCH ×3 (09:14→21:58)
[2016-08-21] MEDS: EZETIMIBE 10 MG TAB PO SCH (09:15)
--- NOTE | 2016-08-21 11:09 | PN ---
DATE: 08/21/2016 SUBJECTIVE: The patient is clinically stable. No acute events overnight. No hemoptysis, hematemes is or hematochezia. OBJECTIVE: VITAL SIGNS: Blood pressure is 150/71, respirations 16, pulse 67, temperature 98.1. HEENT: Head is normocephalic. NECK: Supple. HEART: Regular rate. LUNGS: Show diminished breath sounds at the base. ABDOMEN: Soft, nontender to palpation. No rebound or guarding. EXTREMITIES: Negative for clubbing or cyanosis. No edema. DERMATOLOGIC: No rashes. MUSCULOSKELETAL: Have no joint effusion. NEUROLOGIC: No change in exam. MEDICATIONS: The patient's medications have been reviewed. LABORATORY DATA: Shows a sodium of 139, potassium 3.7, chloride 100, BUN 37, creatinine 2.14. Whit e count 9.6, hemoglobin 11.6, hematocrit 36.2, platelet count is 453. ASSESSMENT AND PLAN: This is a 65-year-old male who presents with: 1. Nonoliguric acute kidney injury on top of chronic kidney disease. Etiology of acute kidney inju ry is secondary to hemodynamics. Renal function has improved, currently at baseline. Continue supp ortive care. 2. Bilateral renal artery stenosis. The patient is status post stenting. A duplex arterial ultraso und is pending to evaluate renal arterial flow. 3. Refractory hypertension. Etiology was felt to be secondary to possible bilateral renal artery s tenosis. The patient is status post stenting. The patient, however, appears to have a possible selina g mass. Unclear if this may be a possible source, questionable paraganglioma. Would consider doing a MIBG scan and/or PET scan. Will discuss with primary team. 4. Lung mass. The patient's CT scan shows evidence of a right upper lobe mass concerning for possib le neoplasm. Would consider a hematology evaluation. 5. Acute congestive heart exacerbation flash pulmonary edema. Etiology is felt to be secondary to bilateral renal artery stenosis. However, given the patient is status post stenting and has a recur rence of flash pulmonary edema in conjunction with a lung mass, the possibility of a paraganglioma a nd/or pheochromocytoma is a consideration. Will continue current medical management. Consider furt her evaluation by checking a MIBG scan and/or PET scan. 6. History of coronary artery disease status post PCI. Continue medical management. 7. History of ischemic cardiomyopathy. 8. History of arrhythmia. Status post AICD placement. Dictated By: MARILYN SANTOS/LUIS Conf#: [id number] DID#: [id number]
[2016-08-21] MEDS: LORAZEPAM 2 MG INJ IV PRN ×2 (12:53→19:54)
--- NOTE | 2016-08-21 13:10 | RADRPT ---
PROCEDURE: Renal artery Doppler ultrasound CLINICAL INDICATION: Renal artery stenosis. TECHNIQUE: Multiple sonographic of the bilateral renal arteries were obtained utilizing montelongo scale , duplex and color-flow imaging. The images were reviewed on a PACS workstation. COMPARISON: CT chest without contrast and renal Doppler 07/21/2016. FINDINGS: Real-time ultrasound demonstrates normal size kidneys bilaterally, right measuring 10.2 cm in length and the left kidney measuring 9.3 cm in length. There is no sign of collecting system dilatation. R enal echogenicity is normal. The visualized abdominal aorta is normal in caliber. Color and spectral Doppler interrogation of th e renal arteries was performed utilizing both, the indirect method, evaluating the waveforms in the distal renal arteries just proximal to the renal natalia bilaterally, and the direct method, evaluating main renal artery velocities at the origins off the aorta. The resistive index of the renal arteri es is normal bilaterally, measuring between 0.80 - 0.71 bilaterally. Peak velocities within the abundio gins of the renal arteries are in the normal range, measuring 65 - 86 cm/s on the right and 39-64 cm /s on the left. Peak velocity within the abdominal aorta measures approximately 54 cm/s. There is no rmal renal artery aortic ratio measuring 1.6 on the right and 1.2 on the left. Normal main renal stella ous flow was seen bilaterally IMPRESSION: 1. The patient is status post bilateral renal artery stenting with no evidence of intra-stent steno sis/thrombus. 2. Normal appearing bilateral kidneys with no hydronephrosis. RPTAT: BB .Eber Farrell MD, Date Time Electronically viewed and signed by .Eber Farrell MD, MD on 08/21/2016 13:10 .O/
--- NOTE | 2016-08-21 14:19 | PN ---
Date/Time of Note Date/Time of Note DATE: 08/21/16 TIME: 13:56 Assessment/Plan VTE Prophylaxis VTE Prophylaxis Intervention: heparin Lines/Catheters IV Catheter Type (from Nrs): Saline Lock Assessment/Plan Assessment/Plan 1. Hypertensive emergency with pulmonary edema, improved 2. Bilateral renal artery stenosis. The patient is status post stenting. A duplex arterial ultrasound is pending to evaluate renal arterial flow. 3. Nonoliguric acute kidney injury on top of chronic kidney disease. Etiology of acute kidney injury is secondary to hemodynamics. Renal function has improved, currently at baseline. Continue supportive care. 4. RUL Lung mass, CT-guided biopsy, talked with patient and family, needs time to make decision 5. Coronary artery disease status post PCI. Continue medical management. 6. History of arrhythmia. Status post AICD placement. 7. DVT prophylaxis:heparin Subjective 24 Hr Interval Summary Free Text/Dictation no shortness of breath. Exam/Review of Systems Vital Signs Vitals Vital Signs Date Time Temp Pulse Resp B/P Pulse Ox O2 Delivery O2 Flow Rate FiO2 08/21/16 11:38 98.0 69 17 116/53 97 08/21/16 09:19 Nasal Cannula 2.0 Intake and Output 08/20/16 08/20/16 08/21/16 15:00 23:00 07:00 Intake Total 200 ml 800 ml 240 ml Output Total 250 ml 200 ml 300 ml Balance -50 ml 600 ml -60 ml Exam Constitutional: alert, oriented, well developed Psych: nl mood/affect, no complaints Head: atraumatic, normocephalic Eyes: EOMI, PERRL, nl conjunctiva, nl lids ENMT: nl external ears & nose, nl lips & teeth, nl nasal mucosa & septum Neck: non-tender, supple Respiratory: clear to auscultation, normal air movement, No congested cough, No crackles/rales, No diminished breath sounds, No intercostal retraction, No labored breathing, No other, No respirations, No tactile fremitus, No wheezing Cardiovascular: nl pulses, regular rate and rhythm, No S3, No S4, No bruits, No diastolic murmur, No edema, No gallop, No irregular rhythm, No jugular venous distention (JVD), No murmurs/extra sounds, No other, No rub, No systolic murmur Gastrointestinal: nl liver, spleen, non-tender, soft, No ascites, No bowel sounds, No distended, No firm, No hepatomegaly, No mass , No other, No rebound or guarding, No splenomegaly, No surgical scars, No tender Musculoskeletal: nl extremities to inspection Extremities: normal pulses, No calf tenderness, No clubbing, No cyanosis, No edema, No other, No palpable cord, No pitting pedal edema, No tenderness Neurological: REMITTANCE CLERK II-XII intact, nl mental status, nl speech, nl strength Skin: nl turgor Lymph: nl lymph nodes Results Result Diagram: 08/21/16 0750 08/21/16 0750 Results 24 hrs Laboratory Tests Test 08/20/16 15:33 08/20/16 17:15 08/20/16 21:03 08/21/16 07:50 Creatine Kinase 45 Creatine Kinase Index 7.3 Creatinine Kinase MB (Mass) 3.29 H Troponin I 0.235 *H Bedside Glucose 136 119 White Blood Count 9.6 # Red Blood Count 4.03 L Hemoglobin 11.6 L Hematocrit 36.2 L Mean Corpuscular Volume 89.8 Mean Corpuscular Hemoglobin 28.8 L Mean Corpuscular Hemoglobin Concent 32.0 Red Cell Distribution Width 12.7 Platelet Count 453 #H Mean Platelet Volume 11.1 H Neutrophils % 64.7 Lymphocytes % 18.2 Monocytes % 11.0 Eosinophils % 4.6 Basophils % 0.7 Nucleated Red Blood Cells % 0.0 Neutrophils # 6.2 Lymphocytes # 1.8 Monocytes # 1.1 H Eosinophils # 0.4 Basophils # 0.1 Nucleated Red Blood Cells # 0.0 Sodium Level 139 Potassium Level 3.7 Chloride Level 100 Carbon Dioxide Level 29 Anion Gap 14 Blood Urea Nitrogen 37 H Creatinine 2.14 H Glucose Level 127 # Calcium Level 9.3 Total Bilirubin 0.8 Direct Bilirubin 0.00 Indirect Bilirubin 0.8 Aspartate Amino Transf (AST/SGOT) 29 Alanine Aminotransferase (ALT/SGPT) 42 Alkaline Phosphatase 71 Total Protein 7.4 Albumin 4.0 Globulin 3.40 H Albumin/Globulin Ratio 1.17 Test 08/21/16 08:18 Bedside Glucose 116 Medications Medications Current Medications Lorazepam (Ativan) 0.5 mg Q6H PRN IV ANXIETY Last administered on 08/21/16t 12: 53; Admin Dose 0.5 MG; Start 08/20/16 at 06:30 Ondansetron HCl (Zofran Inj) 4 mg Q6H PRN IV NAUSEA AND/OR VOMITING; Start at 06:30 Acetaminophen (Tylenol Tab) 650 mg Q6H PRN PO PAIN LEVEL 1-3 OR FEVER; Start at 06:30 Pantoprazole (Protonix Iv) 40 mg DAILY@06 IV Last administered on 08/21/16 06: 02; Admin Dose 40 MG; Start 08/21/16 at 06:00 Amiodarone HCl (Cordarone) 200 mg DAILY PO Last administered on 08/21/16 09:14 ; Admin Dose 200 MG; Start 08/20/16 at 09:00 Aspirin (Aspirin) 81 mg DAILY PO Last administered on 08/21/16 09:14; Admin Dose 81 MG; Start 08/21/16 at 09:00 Atorvastatin Calcium (Lipitor) 10 mg QHS PO Last administered on 08/20/16 21: 04; Admin Dose 10 MG; Start 08/20/16 at 21:00 Clopidogrel Bisulfate (plaVIX) 75 mg DAILY PO Last administered on 08/21/16 09 :14; Admin Dose 75 MG; Start 08/20/16 at 09:00 EZETIMIBE (Zetia) 10 mg DAILY PO Last administered on 08/21/16 09:15; Admin Dose 10 MG; Start 08/20/16 at 09:00 Hydralazine HCl (Apresoline) 50 mg Q8 PO Last administered on 08/21/16 06:03; Admin Dose 50 MG; Start 08/20/16 at 14:00 Isosorbide Dinitrate (Isordil) 10 mg TID PO Last administered on 08/21/16 12: 13; Admin Dose 10 MG; Start 08/20/16 at 09:00 Carvedilol (Coreg) 12.5 mg BID PO Last administered on 08/21/16 09:14; Admin Dose 12.5 MG; Start 08/20/16 at 09:00 Miscellaneous Information 1 ea NOTE XX ; Start 08/20/16 at 07:30 Glucose (Glutose) 15 gm Q15M PRN PO DECREASED GLUCOSE; Start 08/20/16 at 07:30 Glucose (Glutose) 22.5 gm Q15M PRN PO DECREASED GLUCOSE; Start 08/20/16 at 07: 30 Dextrose (D50w Syringe) 25 ml Q15M PRN IV DECREASED GLUCOSE; Start 08/20/16 at 07:30 Dextrose (D50w Syringe) 50 ml Q15M PRN IV DECREASED GLUCOSE; Start 08/20/16 at 07:30 Glucagon (Glucagen) 1 mg Q15M PRN IM DECREASED GLUCOSE; Start 08/20/16 at 07:30 Glucose (Glutose) 15 gm Q15M PRN BUCCAL DECREASED GLUCOSE; Start 08/20/16 at 07 :30 Diagnostic Test (Pha) (Accu-Chek) 1 ea 02 XX ; Start 08/21/16 at 02:00 Furosemide (Lasix) 20 mg DAILY PO ; Start 08/22/16 at 09:00; Status TRESSA ROSS MD August 21, 2016 14:16
[2016-08-21] MEDS: HEPARIN 5,000 UNIT/0.5 ML VIAL SC SCH ×2 (14:37→20:15)
[2016-08-21] MEDS: ATORVASTATIN 10 MG TAB PO SCH (20:13)
--- NOTE | 2016-08-21 20:19 | CONS ---
Date/Time of Note Date/Time of Note DATE: 08/21/16 TIME: 20:09 Assessment/Plan Assessment/Plan Chief Complaint/Hosp Course Assessment: Acute on chronic systolic heart failure with flash pulmonary edema - now improved with blood pressure control Hypertensive emergency - blood pressures now improved Bilateral renal artery stenoses - status post bilateral stenting 08/16/2016 H/o CAD s/p CABG/PCI H/o ICM EF 20% s/p ICD CKD RUL lung mass - work up per primary team, considering CT-guided biopsy if patient is agreeable Recommendations: -continue carvedilol, hydralazine, Isordil -continue aspirin, clopidogrel, atorvastatin -continue Lasix 20mg daily -follow up repeat renal arterial Dopplers Problems: Consultation Date/Type/Reason Admit Date/Time August 20, 2016 at 05:50 Type of Consultation: Cardiology Reason for Consultation congestive heart failure Hx of Present Illness The patient is a 65 year-old male with a history of recurrent hypertensive emergency and flash pulmonary edema who is now readmitted with the same presentation. He recently underwent bilateral renal artery stenting on 08/16/2016 for renal artery stenoses. Chest CT shows a right upper lobe mass measuring 5.8 x 6.6 cm and concerning for neoplastic disease. 14 point review of systems negative other than per HPI. 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) Hypertension Dyslipidemia Chronic kidney disease Carotid artery disease - status post endarterectomy Bilateral upper extremity superficial venous thrombosis Past Surgical History Past Surgical Hx: coronary bypass surgery, other (carotid endarterectomy) Family History Significant Family History: no pertinent family hx Social History Alcohol Use: rarely Smoking Status: Former smoker Drug Use: none Exam/Review of Systems Vital Signs Vitals Vital Signs Date Time Temp Pulse Resp B/P Pulse Ox O2 Delivery O2 Flow Rate FiO2 08/21/16 20:00 Nasal Cannula 2.0 08/21/16 16:14 76 08/21/16 15:59 98.1 18 142/68 97 Intake and Output 08/20/16 08/20/16 08/21/16 15:00 23:00 07:00 Intake Total 200 ml 800 ml 240 ml Output Total 250 ml 200 ml 300 ml Balance -50 ml 600 ml -60 ml Exam Constitutional: alert, well developed Psych: nl mood/affect, no complaints Head: atraumatic, normocephalic Eyes: nl conjunctiva, nl lids ENMT: nl external ears & nose, nl nasal mucosa & septum Neck: non-tender, supple, No jvd Respiratory: clear to auscultation, normal air movement Cardiovascular: regular rate and rhythm Gastrointestinal: non-tender, soft Musculoskeletal: nl extremities to inspection Extremities: No clubbing, No cyanosis, No edema Neurological: nl mental status, nl speech Results Result Diagram: 08/21/16 0750 08/21/16 0750 Results 24 hrs Laboratory Tests Test 08/20/16 21:03 08/21/16 07:50 08/21/16 08:18 Bedside Glucose 119 116 White Blood Count 9.6 # Red Blood Count 4.03 L Hemoglobin 11.6 L Hematocrit 36.2 L Mean Corpuscular Volume 89.8 Mean Corpuscular Hemoglobin 28.8 L Mean Corpuscular Hemoglobin Concent 32.0 Red Cell Distribution Width 12.7 Platelet Count 453 #H Mean Platelet Volume 11.1 H Neutrophils % 64.7 Lymphocytes % 18.2 Monocytes % 11.0 Eosinophils % 4.6 Basophils % 0.7 Nucleated Red Blood Cells % 0.0 Neutrophils # 6.2 Lymphocytes # 1.8 Monocytes # 1.1 H Eosinophils # 0.4 Basophils # 0.1 Nucleated Red Blood Cells # 0.0 Sodium Level 139 Potassium Level 3.7 Chloride Level 100 Carbon Dioxide Level 29 Anion Gap 14 Blood Urea Nitrogen 37 H Creatinine 2.14 H Glucose Level 127 # Calcium Level 9.3 Total Bilirubin 0.8 Direct Bilirubin 0.00 Indirect Bilirubin 0.8 Aspartate Amino Transf (AST/SGOT) 29 Alanine Aminotransferase (ALT/SGPT) 42 Alkaline Phosphatase 71 Total Protein 7.4 Albumin 4.0 Globulin 3.40 H Albumin/Globulin Ratio 1.17 Medications Medications Current Medications Lorazepam (Ativan) 0.5 mg Q6H PRN IV ANXIETY Last administered on 08/21/16t 19: 54; Admin Dose 0.5 MG; Start 08/20/16 at 06:30 Ondansetron HCl (Zofran Inj) 4 mg Q6H PRN IV NAUSEA AND/OR VOMITING; Start at 06:30 Acetaminophen (Tylenol Tab) 650 mg Q6H PRN PO PAIN LEVEL 1-3 OR FEVER; Start at 06:30 Amiodarone HCl (Cordarone) 200 mg DAILY PO Last administered on 08/21/16 09:14 ; Admin Dose 200 MG; Start 08/20/16 at 09:00 Aspirin (Aspirin) 81 mg DAILY PO Last administered on 08/21/16 09:14; Admin Dose 81 MG; Start 08/21/16 at 09:00 Atorvastatin Calcium (Lipitor) 10 mg QHS PO Last administered on 08/20/16 21: 04; Admin Dose 10 MG; Start 08/20/16 at 21:00 Clopidogrel Bisulfate (plaVIX) 75 mg DAILY PO Last administered on 08/21/16 09 :14; Admin Dose 75 MG; Start 08/20/16 at 09:00 EZETIMIBE (Zetia) 10 mg DAILY PO Last administered on 08/21/16 09:15; Admin Dose 10 MG; Start 08/20/16 at 09:00 Hydralazine HCl (Apresoline) 50 mg Q8 PO Last administered on 08/21/16 06:03; Admin Dose 50 MG; Start 08/20/16 at 14:00 Isosorbide Dinitrate (Isordil) 10 mg TID PO Last administered on 08/21/16 12: 13; Admin Dose 10 MG; Start 08/20/16 at 09:00 Carvedilol (Coreg) 12.5 mg BID PO Last administered on 08/21/16 09:14; Admin Dose 12.5 MG; Start 08/20/16 at 09:00 Miscellaneous Information 1 ea NOTE XX ; Start 08/20/16 at 07:30 Glucose (Glutose) 15 gm Q15M PRN PO DECREASED GLUCOSE; Start 08/20/16 at 07:30 Glucose (Glutose) 22.5 gm Q15M PRN PO DECREASED GLUCOSE; Start 08/20/16 at 07: 30 Dextrose (D50w Syringe) 25 ml Q15M PRN IV DECREASED GLUCOSE; Start 08/20/16 at 07:30 Dextrose (D50w Syringe) 50 ml Q15M PRN IV DECREASED GLUCOSE; Start 08/20/16 at 07:30 Glucagon (Glucagen) 1 mg Q15M PRN IM DECREASED GLUCOSE; Start 08/20/16 at 07:30 Glucose (Glutose) 15 gm Q15M PRN BUCCAL DECREASED GLUCOSE; Start 08/20/16 at 07 :30 Diagnostic Test (Pha) (Accu-Chek) 1 ea 02 XX ; Start 08/21/16 at 02:00 Furosemide (Lasix) 20 mg DAILY PO ; Start 08/22/16 at 09:00 Heparin Sodium (Porcine) (Heparin (5000 Units/0.5 ml)) 5,000 unit BID SC Last administered on 08/21/16t 14:37; Admin Dose 5,000 UNIT; Start 08/21/16 at 14:00 Pantoprazole (Protonix Tab) 40 mg DAILY@06 PO ; Start 08/22/16 at 06:00 MICHELLE CHAVEZ MD August 21, 2016 20:19
[2016-08-21] MEDS: ZOLPIDEM 5 MG TAB PO PRN (23:22)
[2016-08-22] VITALS (13 sets, daily range): BP systolic 115–182; BP diastolic 58–99; PULSE 70–86; RESP 17–19
[2016-08-22] MEDS: ACCU-CHEK XX SCH (02:00)
--- NOTE | 2016-08-22 04:00 | RADRPT ---
PROCEDURE: Ultrasound soft tissue CLINICAL INDICATION: Left groin swelling TECHNIQUE: Hess scale ultrasound was performed over the area of interest in the left groin. COMPARISON: No pertinent prior examinations were submitted for comparison. FINDINGS: There is peristalsing bowel within the left inguinal canal corresponding to the area of contrast. IMPRESSION: Left inguinal hernia. RPTAT: HIKT .Saad Almaraz MD, MD Date Time Electronically viewed and signed by .Saad Almaraz MD, on 08/22/2016 03:59 .T/
[2016-08-22] MEDS: hydrALAzine 20 MG INJ IV PRN ×3 (04:16→15:57)
[2016-08-22] MEDS: PANTOPRAZOLE (EC) 40 MG TAB PO SCH (06:18)
[2016-08-22 07:46] LABS: ADD SCAN DIFF NO
[2016-08-22 07:50] LABS: BASOPHIL # 0.1 10^3/ul (0.0-0.1); BASOPHILS % 0.7 % (0.0-2.0); EOSINOPHILS # 0.4 10^3/ul (0.0-0.5); EOSINOPHILS % 3.4 % (0.0-7.0); HEMATOCRIT 36.5 % (42.0-52.0); HEMOGLOBIN 11.9 g/dl (14.0-18.0); LYMPHOCYTES # 2.1 10^3/ul (0.8-2.9); LYMPHOCYTES % 20.9 % (15.0-51.0); MEAN CORPUSCULAR HEMOGLOBIN 29.1 pg (29.0-33.0); MEAN CORPUSCULAR HGB CONC 32.6 g/dl (32.0-37.0); MEAN CORPUSCULAR VOLUME 89.2 fl (82.0-101.0); MEAN PLATELET VOLUME 11.1 fl (7.4-10.4); MONOCYTE # 1.1 10^3/ul (0.3-0.9); MONOCYTES % 10.4 % (0.0-11.0); NEUTROPHIL # 6.5 10^3/ul (1.6-7.5); NEUTROPHILS % 63.9 % (39.0-77.0); PLATELET COUNT 449 10^3/UL (140-415); RED BLOOD COUNT 4.09 10^6/ul (4.70-6.10); RED CELL DISTRIBUTION WIDTH 12.6 % (11.5-14.5); WHITE BLOOD COUNT 10.2 10^3/ul (4.8-10.8)
[2016-08-22] MEDS: INSULIN ASPART [NOVOLOG] 3 ML PEN SC SCH ×4 (08:00→20:58)
[2016-08-22 08:28] LABS: POTASSIUM 3.6 mmol/L (3.5-5.1)
[2016-08-22 08:31] LABS: CALCIUM 9.4 mg/dl (8.4-10.2); CREATININE 2.08 mg/dl (0.61-1.24)
[2016-08-22] MEDS: CLOPIDOGREL 75 MG TAB PO SCH (08:47)
[2016-08-22] MEDS: ASPIRIN 81 MG TAB PO SCH (08:47)
[2016-08-22] MEDS: ISOSORBIDE DINITRATE 10 MG TAB PO SCH ×3 (08:48→20:57)
[2016-08-22] MEDS: FUROSEMIDE 20 MG TAB PO SCH (08:48)
[2016-08-22] MEDS: AMIODARONE 200 MG TAB PO SCH (08:48)
[2016-08-22] MEDS: EZETIMIBE 10 MG TAB PO SCH (08:49)
[2016-08-22] MEDS: HEPARIN 5,000 UNIT/0.5 ML VIAL SC SCH ×2 (08:54→21:02)
--- NOTE | 2016-08-22 09:46 | PN ---
DATE: SUBJECTIVE: The patient overnight was noted to be hypertensive with systolic pressures in the 180s and 170s. No other acute events noted. No hemoptysis, hematemesis or hematochezia. OBJECTIVE: VITAL SIGNS: Blood pressure is 182/99, respirations 19, pulse 98, temperature 98.4. HEENT: Head is normocephalic. NECK: Supple. HEART: Regular rate. LUNGS: Show diminished breath sounds at the base. ABDOMEN: Soft, nontender to palpation. No rebound or guarding. EXTREMITIES: Negative for clubbing, cyanosis. No edema. DERMATOLOGIC: No rashes. MUSCULOSKELETAL: No joint effusions. NEUROLOGIC: No change in exam. MEDICATIONS: The patient's medications have been reviewed. LABORATORY DATA: Shows sodium 142, potassium 3.6, chloride 101, BUN 37, creatinine 2.08. White cou nt 10.2, hemoglobin 11.9, hematocrit 36.5, platelet count is 449. ASSESSMENT AND PLAN: 1. Nonoliguric acute kidney injury on top of chronic kidney disease stage IV with a previous baseli ne creatinine around 2 to 2.5 mg/dL. Etiology of current acute kidney injury was hemodynamics. Anoop al function has been improving. At this point, continue current treatment plan, supportive care, re sarah dose all meds. 2. Bilateral renal artery stenosis. The patient is status post stenting. Repeat duplex arterial u ltrasound showed appropriate renal arterial flow. Continue to monitor. 3. Refractory hypertension. Etiology is felt to be second to bilaterally artery stenosis. However , the patient status post stenting continues to have episodes of paroxysmal hypertension. The possi bility of pheochromocytoma or paraganglioma is a consideration. The patient has a lung mass noted o n CT scan. We will do a full workup by checking a CT scan of abdomen and pelvis to see if there is any evidence of adrenal mass. We will also consider getting a MIBG scan or PET scan. The case discu ssed with primary team. 4. Lung mass, etiology is unclear, concerning for neoplasm. The patient would benefit from biopsy. Defer to primary team. 5. Acute congestive heart failure exacerbation/pulmonary edema. Etiology is felt to be secondary t o paroxysmal hypertension. The patient had bilateral renal artery stenosis status post stenting. H owever, continues to have episodes of paroxysmal hypertension resulting in pulmonary edema. As stat ed above, we will continue blood pressure management. Continue medical management. We will start t he patient on low-dose ANNE inhibitor and monitor. 6. History of coronary artery disease, status post PCI. Continue medical management. 7. History of ischemic cardiomyopathy. 8. History of arrhythmia, status post AICD placement. Dictated By: MARILYN SANOTS/LUIS Conf#: [id number] DID#: [id number]
[2016-08-22] MEDS: LORAZEPAM 2 MG INJ IV PRN ×2 (10:17→17:22)
--- NOTE | 2016-08-22 14:49 | PN ---
Date/Time of Note Date/Time of Note DATE: 08/22/16 TIME: 14:47 Assessment/Plan VTE Prophylaxis VTE Prophylaxis Intervention: heparin Lines/Catheters IV Catheter Type (from Nrsg): Peripheral IV Assessment/Plan Assessment/Plan 1. Hypertensive emergency with pulmonary edema, improved, change hydralazine to procardia to get better BP control 2. Bilateral renal artery stenosis. The patient is status post stenting. A duplex arterial ultrasound is pending to evaluate renal arterial flow. 3. Nonoliguric acute kidney injury on top of chronic kidney disease. Etiology of acute kidney injury is secondary to hemodynamics. Renal function has improved, currently at baseline. Continue supportive care. 4. RUL Lung mass, CT-guided biopsy, talked with patient and family, needs time to make decision 5. Coronary artery disease status post PCI. Continue medical management. 6. History of arrhythmia. Status post AICD placement. 7. Left inguinal hernia, reduced, follow up with PCP 8. DVT prophylaxis:heparin Subjective 24 Hr Interval Summary Free Text/Dictation no chest pain. No shortness of breath Exam/Review of Systems Vital Signs Vitals Vital Signs Date Time Temp Pulse Resp B/P Pulse Ox O2 Delivery O2 Flow Rate FiO2 08/22/16 14:03 75 08/22/16 11:47 98.1 17 156/77 96 08/21/16 20:00 Nasal Cannula 2.0 Intake and Output 08/21/16 08/21/16 08/22/16 15:00 23:00 07:00 Intake Total 800 ml 200 ml Output Total 300 ml Balance 800 ml -100 ml Exam Constitutional: alert, oriented, well developed Psych: nl mood/affect, no complaints Head: atraumatic, normocephalic Eyes: EOMI, PERRL, nl conjunctiva, nl lids ENMT: nl external ears & nose, nl lips & teeth, nl nasal mucosa & septum Neck: non-tender, supple Respiratory: clear to auscultation, normal air movement, No congested cough, No crackles/rales, No diminished breath sounds, No intercostal retraction, No labored breathing, No other, No respirations, No tactile fremitus, No wheezing Cardiovascular: nl pulses, regular rate and rhythm, No S3, No S4, No bruits, No diastolic murmur, No edema, No gallop, No irregular rhythm, No jugular venous distention (JVD), No murmurs/extra sounds, No other, No rub, No systolic murmur Gastrointestinal: nl liver, spleen, non-tender, soft, No ascites, No bowel sounds, No distended, No firm, No hepatomegaly, No mass , No other, No rebound or guarding, No splenomegaly, No surgical scars, No tender Musculoskeletal: nl extremities to inspection Extremities: normal pulses, No calf tenderness, No clubbing, No cyanosis, No edema, No other, No palpable cord, No pitting pedal edema, No tenderness Neurological: [employer]GER II-XII intact, nl mental status, nl speech, nl strength Skin: nl turgor Lymph: nl lymph nodes Results Result Diagram: 08/22/1636 08/22/16 0636 Results 24 hrs Laboratory Tests Test 08/21/16 20:25 08/22/16 06:36 08/22/16 08:47 08/22/16 12:08 Bedside Glucose 153 105 136 White Blood Count 10.2 Red Blood Count 4.09 L Hemoglobin 11.9 L Hematocrit 36.5 L Mean Corpuscular Volume 89.2 Mean Corpuscular Hemoglobin 29.1 Mean Corpuscular Hemoglobin Concent 32.6 Red Cell Distribution Width 12.6 Platelet Count 449 H Mean Platelet Volume 11.1 H Neutrophils % 63.9 Lymphocytes % 20.9 Monocytes % 10.4 Eosinophils % 3.4 Basophils % 0.7 Nucleated Red Blood Cells % 0.0 Neutrophils # 6.5 Lymphocytes # 2.1 Monocytes # 1.1 H Eosinophils # 0.4 Basophils # 0.1 Nucleated Red Blood Cells # 0.0 Sodium Level 142 Potassium Level 3.6 Chloride Level 101 Carbon Dioxide Level 27 Anion Gap 18 H Blood Urea Nitrogen 37 H Creatinine 2.08 H Glucose Level 101 Calcium Level 9.4 Medications Medications Current Medications Lorazepam (Ativan) 0.5 mg Q6H PRN IV ANXIETY Last administered on 08/22/16 10: 17; Admin Dose 0.5 MG; Start 08/20/16 at 06:30 Ondansetron HCl (Zofran Inj) 4 mg Q6H PRN IV NAUSEA AND/OR VOMITING; Start at 06:30 Acetaminophen (Tylenol Tab) 650 mg Q6H PRN PO PAIN LEVEL 1-3 OR FEVER Last administered on 08/21/16 22:54; Admin Dose 650 MG; Start 08/20/16 at 06:30 Amiodarone HCl (Cordarone) 200 mg DAILY PO Last administered on 08/22/16 08:48 ; Admin Dose 200 MG; Start 08/20/16 at 09:00 Aspirin (Aspirin) 81 mg DAILY PO Last administered on 08/22/16 08:47; Admin Dose 81 MG; Start 08/21/16 at 09:00 Atorvastatin Calcium (Lipitor) 10 mg QHS PO Last administered on 08/21/16 20: 13; Admin Dose 10 MG; Start 08/20/16 at 21:00 Clopidogrel Bisulfate (plaVIX) 75 mg DAILY PO Last administered on 08/22/16 08 :47; Admin Dose 75 MG; Start 08/20/16 at 09:00 EZETIMIBE (Zetia) 10 mg DAILY PO Last administered on 08/22/16 08:49; Admin Dose 10 MG; Start 08/20/16 at 09:00 Isosorbide Dinitrate (Isordil) 10 mg TID PO Last administered on 08/22/16 12: 33; Admin Dose 10 MG; Start 08/20/16 at 09:00 Carvedilol (Coreg) 12.5 mg BID PO Last administered on 08/22/16 08:48; Admin Dose 12.5 MG; Start 08/20/16 at 09:00 Miscellaneous Information 1 ea NOTE XX ; Start 08/20/16 at 07:30 Glucose (Glutose) 15 gm Q15M PRN PO DECREASED GLUCOSE; Start 08/20/16 at 07:30 Glucose (Glutose) 22.5 gm Q15M PRN PO DECREASED GLUCOSE; Start 08/20/16 at 07: 30 Dextrose (D50w Syringe) 25 ml Q15M PRN IV DECREASED GLUCOSE; Start 08/20/16 at 07:30 Dextrose (D50w Syringe) 50 ml Q15M PRN IV DECREASED GLUCOSE; Start 08/20/16 at 07:30 Glucagon (Glucagen) 1 mg Q15M PRN IM DECREASED GLUCOSE; Start 08/20/16 at 07:30 Glucose (Glutose) 15 gm Q15M PRN BUCCAL DECREASED GLUCOSE; Start 08/20/16 at 07 :30 Diagnostic Test (Pha) (Accu-Chek) 1 ea 02 XX ; Start 08/21/16 at 02:00 Furosemide (Lasix) 20 mg DAILY PO Last administered on 08/22/16 08:48; Admin Dose 20 MG; Start 08/22/16 at 09:00 Heparin Sodium (Porcine) (Heparin (5000 Units/0.5 ml)) 5,000 unit BID SC Last administered on 08/22/16 08:54; Admin Dose 5,000 UNIT; Start 08/21/16 at 14:00 Pantoprazole (Protonix Tab) 40 mg DAILY@06 PO Last administered on 08/22/16 06 :18; Admin Dose 40 MG; Start 08/22/16 at 06:00 Zolpidem Tartrate (Ambien) 10 mg HS PRN PO INSOMNIA Last administered on 23:22; Admin Dose 10 MG; Start 08/21/16 at 22:00 Hydralazine HCl (Apresoline) 10 mg Q4H PRN IV ELEVATED BLOOD PRESSURE Last administered on 08/22/16 08:49; Admin Dose 10 MG; Start 08/22/16 at 04:00 Nifedipine (Procardia Xl) 60 mg DAILY PO ; Start 08/22/16 at 15:00; Status TRESSA ROSS MD August 22, 2016 14:49
[2016-08-22] MEDS: NIFEdipine (XL) 60 MG TAB PO SCH (15:57)
--- NOTE | 2016-08-22 19:01 | RADRPT ---
PROCEDURE: CT Abdomen and Pelvis without contrast. CLINICAL INDICATION: Abdominal pelvic pain. Respiratory failure. Evaluate adrenal tumor. Lung ma ss. TECHNIQUE: CT scan of the abdomen and pelvis without contrast was performed on a multidetector hig h-resolution CT scanner. The patient was scanned without intravenous contrast. Coronal and sagittal reformatted images were obtained from the axial source images. Images were reviewed on a high-resol [employer] PACS workstation. The total exam CTDI equals 9.03 mGy and the total exam DLP equals 544.30 mGy -cm. One or more of the following dose reduction techniques were used: - Automated exposure control. - Adjustment of the mA and/or kV according to patient size. - Use of iterative reconstruction technique. COMPARISON: CT chest dated 08/20/2016; ultrasound spleen dated 07/22/2016; ultrasound renal dated 02/16/2016 FINDINGS: CT abdomen: The lung bases are clear. Small calcified granuloma is seen in the posterolateral left lower lung. T he heart size is mildly enlarged with pacemaker wires, without pericardial thickening or effusion. The liver is normal in size and density without focal mass or intrahepatic biliary dilatation. The spleen is normal in size and homogeneous in density, stable over time. The stomach is partially col lapsed, but is grossly unremarkable. The pancreas as visualized is normal. The gallbladder and devin iary tree are unremarkable and there is no evidence for biliary dilatation. The adrenal glands are symmetric and normal. The kidneys are symmetrically unremarkable as well. Several tiny nonobstruct ing left renal calculi are seen. Small bilateral intrarenal atherosclerotic vascular calcifications are identified as well. No obstructive uropathy or mass lesion is seen. The aorta is of normal caliber. Aortic vascular calcifications are present. There is no retroperit ambrose lymphadenopathy. The erich hepatis region is clear. The bowel and mesentery, as visualized, are equally unremarkable. CT pelvis: The small bowel loops situated within the pelvis are unremarkable. The appendix is normal. The pelvi c organs are normal. The pelvic sidewalls and inguinal regions are clear, with exception of a small fat-containing left inguinal hernia. The sigmoid colon and rectum are unremarkable. No mass or ad enopathy is seen. No free fluid is present. No acute inflammation is identified at this time. Stran ding and thickening adjacent to the right common femoral artery is seen, possibly due to previous in travascular procedure. The surrounding osseous structures are remarkable for degenerative spondylosis of the spine. No ost eolytic or osteoblastic lesion is detected. IMPRESSION: 1. No adrenal mass or adrenal metastasis. 2. No mass, lymphadenopathy, or focal acute inflammatory process. 3. Small fat-containing left inguinal hernia. 4. Vascular calcifications consistent with atherosclerosis. 5. Scattered benign chronic senescent changes. RPTAT: HMJB .Ovidio Rosales MD, MD Date Time Electronically viewed and signed by .Ovidio Rosales MD, on 08/22/2016 19:01 .B/
[2016-08-22] MEDS: ATORVASTATIN 10 MG TAB PO SCH (20:56)
[2016-08-22] MEDS: ZOLPIDEM 5 MG TAB PO PRN (23:06)
[2016-08-23] VITALS (10 sets, daily range): BP systolic 97–152; BP diastolic 50–76; PULSE 69–86; RESP 17–59
[2016-08-23] MEDS: ACCU-CHEK XX SCH (02:00)
[2016-08-23] MEDS: PANTOPRAZOLE (EC) 40 MG TAB PO SCH (05:22)
[2016-08-23 07:35] LABS: ADD SCAN DIFF NO
[2016-08-23 07:41] LABS: BASOPHIL # 0.1 10^3/ul (0.0-0.1); BASOPHILS % 0.7 % (0.0-2.0); EOSINOPHILS # 0.4 10^3/ul (0.0-0.5); EOSINOPHILS % 3.9 % (0.0-7.0); HEMATOCRIT 35.7 % (42.0-52.0); HEMOGLOBIN 11.6 g/dl (14.0-18.0); LYMPHOCYTES # 1.8 10^3/ul (0.8-2.9); LYMPHOCYTES % 19.1 % (15.0-51.0); MEAN CORPUSCULAR HEMOGLOBIN 29.1 pg (29.0-33.0); MEAN CORPUSCULAR HGB CONC 32.5 g/dl (32.0-37.0); MEAN CORPUSCULAR VOLUME 89.7 fl (82.0-101.0); MEAN PLATELET VOLUME 10.7 fl (7.4-10.4); MONOCYTE # 0.9 10^3/ul (0.3-0.9); MONOCYTES % 9.6 % (0.0-11.0); NEUTROPHIL # 6.3 10^3/ul (1.6-7.5); NEUTROPHILS % 65.8 % (39.0-77.0); PLATELET COUNT 445 10^3/UL (140-415); RED BLOOD COUNT 3.98 10^6/ul (4.70-6.10); RED CELL DISTRIBUTION WIDTH 12.5 % (11.5-14.5); WHITE BLOOD COUNT 9.6 10^3/ul (4.8-10.8)
[2016-08-23] MEDS: INSULIN ASPART [NOVOLOG] 3 ML PEN SC SCH ×2 (08:00→11:50)
[2016-08-23 08:03] LABS: CALCIUM 9.5 mg/dl (8.4-10.2); CREATININE 2.14 mg/dl (0.61-1.24); MAGNESIUM 2.4 mg/dl (1.7-2.5); PHOSPHORUS 4.2 mg/dl (2.5-4.9); POTASSIUM 3.7 mmol/L (3.5-5.1)
[2016-08-23] MEDS: LORAZEPAM 2 MG INJ IV PRN ×2 (08:37→16:04)
[2016-08-23] MEDS: ASPIRIN 81 MG TAB PO SCH (08:37)
[2016-08-23] MEDS: HEPARIN 5,000 UNIT/0.5 ML VIAL SC SCH (08:37)
[2016-08-23] MEDS: EZETIMIBE 10 MG TAB PO SCH (08:49)
[2016-08-23] MEDS: FUROSEMIDE 20 MG TAB PO SCH (08:50)
[2016-08-23] MEDS: AMIODARONE 200 MG TAB PO SCH (08:50)
[2016-08-23] MEDS: ISOSORBIDE DINITRATE 10 MG TAB PO SCH ×2 (08:50→12:09)
[2016-08-23] MEDS: CLOPIDOGREL 75 MG TAB PO SCH (08:50)
[2016-08-23] MEDS: NIFEdipine (XL) 60 MG TAB PO SCH (08:51)
--- NOTE | 2016-08-23 11:13 | PN ---
DATE: 08/23/2016 SUBJECTIVE: The patient is stable, no acute events overnight. The patient's blood pressure has bee n improved. No other events noted. OBJECTIVE: VITAL SIGNS: Blood pressure is 140/76, respiration 17, pulse 83, temperature 98.4. HEENT: Head is normocephalic. NECK: Supple. HEART: Regular rate. LUNGS: Show diminished breath sounds at base. ABDOMEN: Soft, nontender to palpation without rebound or guarding. EXTREMITIES: Negative for clubbing, cyanosis, no edema. DERMATOLOGIC: No rashes. MUSCULOSKELETAL: No joint effusions. NEUROLOGIC: No focal deficits. MEDICATIONS: Patient medications have been reviewed. LABORATORY DATA: Shows a sodium 138, potassium 2.7, chloride 103, BUN 32, creatinine 2.14. White c ount 9.6, hemoglobin 9.6, hematocrit 35.7, platelet count is 445. IMAGING: CT of abdomen and pelvis was reviewed, no evidence of adrenal mass, no lymphadenopathy, sm all fat containing left inguinal hernia noted. ASSESSMENT AND PLAN: 1. Nonoliguric acute kidney injury on top of chronic kidney disease stage IV. Etiology of acute ki dney injury is secondary to hemodynamics. Renal function is currently stable at baseline. Continue current treatment plan, supportive care, renally dose all meds. 2. Bilateral renal artery stenosis. The patient is status post stenting. Repeat duplex arterial u ltrasound shows appropriate renal flow, no evidence of occlusion. 3. Refractory hypertension. ____ paroxysmal hypertension. Etiology is felt to be secondary to tanika l artery stenosis. However, the patient continues to have episodes of refractory and paroxysmal hyp ertension. The possibility of pheochromocytoma paraganglioma was a consideration as a lung mass was noted on CT scan. A CT scan of the abdomen and pelvis was performed that showed no evidence of sarah al mass. We will also consider getting an MIGB scan. We will discuss with primary team. 5. Lung mass, unclear etiology. The patient will benefit from possible biopsy. Will defer to prim chavez team. 6. Acute congestive heart failure exacerbation, pulmonary edema. Etiology is felt to be secondary to hypertension. Blood pressure is currently controlled. The patient is euvolemic. Continue curre nt medical management. 7. History of coronary artery disease. Status post PCI. Continue current medical management. 8. History of ischemic cardiomyopathy. 9. History of arrhythmia, status post AICD placement. Dictated By: MARILYN SANTOS/LUIS Conf#: [id number] DID#: [id number]
[2016-08-23] MEDS ORDERED: CARV6.2579 PO (15:01)
[2016-08-23] MEDS ORDERED: NIFE60TA7 PO (15:01)
--- NOTE | 2016-08-23 15:14 | DS ---
Date/Time of Note Date/Time of Note DATE: 08/23/16 TIME: 15:03 Discharge Summary Admission/Discharge Info Admit Date/Time August 20, 2016 at 05:50 Discharge Date/Time Final Diagnosis 1. Hypertensive emergency with pulmonary edema, improved, blood pressure is under controlled, follow up with cardiology 2. Bilateral renal artery stenosis. status post stenting. follow up with nephrology 3. Nonoliguric acute kidney injury on top of chronic kidney disease. stable, follow up with nephrology 4. RUL Lung mass, patient declines biopsy 5. Coronary artery disease status post PCI. stable, Continue medical management. 6. History of arrhythmia. Status post AICD placement. 7. Left inguinal hernia, reduced, follow up with PCP Patient Condition: Stable Hx of Present Illness Hospital Course This is a 65-year-old male with a history of CABG, flash pulmonary edema, and renal artery stenosis status post bilateral stents on 08/16/16 who presents with severe shortness of breath that was going on for the last several hours. Patient's states he was sweating. He denies chest pain. He states that he has been compliant with his medications. He does state that he had wheezing. Upon ER admission patient was found to have systolic blood pressure in the 200s. His oxygenation was 86% on room air. With 2 L nasal cannula he was satting at 99%. He was given labetalol as well as a dose of IV Lasix. symptoms improved with blood pressure got better controlled. For hypertension, his blood pressure is well controlled with procardia XL 60 mg/ day. Coreg is decreased from 12.5 mg po bid to 6.25 mg po bid. Lasix and hydralazine are stopped. Patient has a large lung mass at RUL with size of 5.8x6.6 cm. I offered further work up including biopsy that he refused. Follow up with PCP. [place] [id number] Radiology Main Line: [phone] DIAGNOSTIC IMAGING REPORT Patient: JUANIS PA : 1950 Age: 65 Sex: M MR #: [id number] DOS: 08/20/16 0000 Ordering MD: JAYNE LARIOS DO Location: E/R Room/Bed: PROCEDURE: CT Chest without contrast. CLINICAL INDICATION: Shortness of breath. TECHNIQUE: CT scan of the chest was performed on a multi-detector high- resolution CT scanner. Contiguous axial images were obtained from the lung apices to the upper abdomen without intravenous contrast. Coronal and sagittal reformatted images were also obtained. Images were reviewed on the PACS workstation. One or more of the following dose reduction techniques were used: - Automated exposure control. - Adjustment of the mA and/or kV according to patient size. - Use of iterative reconstruction technique. Exam CTD/vol = 9.27 mGy. Total exam DLP = 404.06 mGy-cm. COMPARISON: None. FINDINGS: There is a left-sided AICD pacemaker. Mediasternotomy wires are present. The visualized thyroid gland is unremarkable. There are no enlarged axillary lymph nodes. There is a prominent right paratracheal lymph node measuring 1.3 x 1.5 cm. There are small paratracheal, precarinal and subcarinal lymph nodes. There are no enlarged hilar lymph nodes; however, study limited by lack of intravenous contrast. The heart is mildly enlarged. There is no pericardial thickening or effusion. The aorta is of normal caliber with scattered atherosclerotic calcifications. There is mild centrolobular emphysema. There is a mass within the posterior right upper lobe extending into the superior segment of the right lower lobe measuring 5.8 x 6.6 cm. There are ground-glass opacities and septal thickening consistent with mild congestive failure. There are bilateral small pleural effusions. The central tracheobronchial tree is within normal limits. There is a calcified granuloma within the right lower lobe. The osseous structures are unremarkable. Limited evaluation of the upper abdomen is unremarkable. IMPRESSION: Right upper lobe mass measuring 5.8 x 6.6 cm concerning for neoplastic disease. Mild cardiomegaly and congestive failure with bilateral small pleural effusions. Vascular calcifications reflective of atherosclerosis. Mild mediastinal adenopathy. .Usman Carmona MD, MD Date Time Electronically viewed and signed by .Usman Carmona MD, MD on 08/20/2016 07:10 .T/ CC: JAYNE LARIOS DO Home Meds Active Scripts Nifedipine (Afeditab CR) 60 Mg Tablet.sa, 60 MG PO DAILY for 30 Days Prov:TRESSA RUIZ MD 08/23/16 Carvedilol* (Carvedilol*) 6.25 Mg Tablet, 6.25 MG PO BID for 30 Days, TAB Prov:TRESSA RUIZ MD 08/23/16 Atorvastatin Calcium (Atorvastatin Calcium) 10 Mg Tablet, 10 MG PO QHS, #30 TAB Prov:GIA WILDER MD 08/18/16 Aspirin* (Aspirin* Chew) 81 Mg Tab.chew, 81 MG PO DAILY, #30 TAB.CHEW Prov:GIA WILDER MD 03/07/16 Reported Medications Isosorbide Dinitrate* (Isordil*) 10 Mg Tablet, 10 MG PO TID, TAB 08/16/16 Clopidogrel Bisulfate (Clopidogrel) 75 Mg Tablet, 75 MG PO DAILY, #30 TAB 08/16/16 Amiodarone Hcl* (Amiodarone Hcl*) 200 Mg Tablet, 200 MG PO DAILY, #30 TAB 08/16/16 Ezetimibe* (Zetia*) 10 Mg Tablet, 10 MG PO DAILY, TAB 05/21/16 Zolpidem Tartrate* (Zolpidem Tartrate*) 10 Mg Tablet, 10 MG PO QHS Y for INSOMNIA, #30 TAB 01/25/16 Discontinued Reported Medications Carvedilol* (Carvedilol*) 12.5 Mg Tablet, 12.5 MG PO BID, #60 TAB 08/16/16 Hydralazine Hcl* (Hydralazine Hcl*) 50 Mg Tab, 50 MG PO BID, #120 TAB 08/16/16 Amiodarone Hcl* (Amiodarone Hcl*) 100 Mg Tablet, 100 MG PO DAILY, #30 TAB 05/21/16 Discontinued Scripts Furosemide (Lasix) 20 Mg Tab, 20 MG PO DAILY, #30 TAB Prov:GIA WILDER MD 08/18/16 Hydralazine Hcl* (Apresoline*) 50 Mg Tab, 50 MG PO Q8, #120 TAB Prov:IGA WILDER MD 08/18/16 Clopidogrel Bisulfate (Clopidogrel) 75 Mg Tablet, 75 MG PO DAILY, #30 TAB 8 Refills Prov:MACK FLORES S. 07/25/16 Furosemide (Lasix) 20 Mg Tab, 20 MG PO BID@06,18 for 30 Days, #60 TAB 3 Refills Prov:RYANN FLORESEEP S. 07/25/16 Hydralazine Hcl* (Apresoline*) 50 Mg Tab, 50 MG PO TID, #90 TAB 3 Refills Prov:RYANN FLORESEEP S. 07/25/16 Isosorbide Dinitrate* (Isordil*) 10 Mg Tablet, 10 MG PO TID, #90 TAB 2 Refills Prov:RYANN FLORESEEP S. 07/25/16 Albuterol/Ipratropium* (Combivent Respimat*) 20-100 Mcg/Inh - 4 Gm Aer.w.adap, 1 PUFF INHALATION QID, #1 INHALER 1 Refill Prov:SANJUANITA SPAULDING Hannah. 07/08/16 Carvedilol* (Carvedilol*) 12.5 Mg Tablet, 12.5 MG PO BID, #60 TAB Prov:GIA WILDER MD 03/07/16 Atorvastatin* (Atorvastatin*) 80 Mg Tablet, 80 MG PO QHS, #30 TAB Prov:GIA WILDER MD 03/07/16 Follow-up Plan PCP and cardiology in one week Primary Care Provider Manuel Martinez Pending Labs Laboratory Tests Test 08/22/16 17:20 08/22/16 20:54 08/22/16 20:55 08/23/16 07:17 Bedside Glucose 151mg/dL (70-220) 168mg/dL (70-220) 148mg/dL (70-220) White Blood Count 9.610^3/ul (4.8-10.8) Red Blood Count 3.9810^6/ul (4.70-6.10) Hemoglobin 11.6g/dl (14.0-18.0) Hematocrit 35.7% (42.0-52.0) Mean Corpuscular Volume 89.7fl (82.0-101.0) Mean Corpuscular Hemoglobin 29.1pg (29.0-33.0) Mean Corpuscular Hemoglobin Concent 32.5g/dl (32.0-37.0) Red Cell Distribution Width 12.5% (11.5-14.5) Platelet Count 63531^3/UL (140-415) Mean Platelet Volume 10.7fl (7.4-10.4) Neutrophils % 65.8% (39.0-77.0) Lymphocytes % 19.1% (15.0-51.0) Monocytes % 9.6% (0.0-11.0) Eosinophils % 3.9% (0.0-7.0) Basophils % 0.7% (0.0-2.0) Nucleated Red Blood Cells % 0.0/100WBC (0.0-0.0) Neutrophils # 6.310^3/ul (1.6-7.5) Lymphocytes # 1.810^3/ul (0.8-2.9) Monocytes # 0.910^3/ul (0.3-0.9) Eosinophils # 0.410^3/ul (0.0-0.5) Basophils # 0.110^3/ul (0.0-0.1) Nucleated Red Blood Cells # 0.010^3/ul (0.0-0.0) Sodium Level 138mmol/L (135-144) Potassium Level 3.7mmol/L (3.5-5.1) Chloride Level 103mmol/L (97-110) Carbon Dioxide Level 28mmol/L (21-31) Anion Gap 11 (8-16) Blood Urea Nitrogen 32mg/dl (7-20) Creatinine 2.14mg/dl (0.61-1.24) Glucose Level 112mg/dl (70-220) Calcium Level 9.5mg/dl (8.4-10.2) Phosphorus Level 4.2mg/dl (2.5-4.9) Magnesium Level 2.4mg/dl (1.7-2.5) Test 08/23/16 08:28 08/23/16 11:39 Bedside Glucose 107mg/dL (70-220) 146mg/dL (70-220) TRESSA RUIZ MD August 23, 2016 15:13
--- NOTE | 2016-08-23 16:32 | CONS ---
Date/Time of Note Date/Time of Note DATE: 08/23/16 TIME: 16:27 Assessment/Plan Assessment/Plan Chief Complaint/Hosp Course Acute on chronic systolic heart failure with flash pulmonary edema - recurrent. Initially thought to be from renal artery stenosis s/p bilateral stents but recurred. ?Anxiety component Hypertensive emergency - resolved Bilateral renal artery stenoses - status post bilateral stenting 08/16/2016. Ultrasound shows patent flow H/o CAD s/p CABG/PCI H/o ICM EF 20% s/p ICD CKD RUL lung mass - work up per primary team, considering CT-guided biopsy -continue carvedilol -ok for nifedipine on discharge as effectively controlling BP -as hydralazine is being held, can also d/c isordil -will add ACEI or ARB as outpt now that renal arteries are stented -continue aspirin, clopidogrel, atorvastatin -continue Lasix 20mg daily -will interrogate ICD as outpt Problems: Consultation Date/Type/Reason Admit Date/Time August 20, 2016 at 05:50 Initial Consult Date Type of Consultation: Cardiology 24 HR Interval Summary Free Text/Dictation No o/n events. No chest pain or SOB. Ambulating ok. started on nifedipine by Dr. Groves and hydralazine held. Would like to go home. Exam/Review of Systems Vital Signs Vitals Vital Signs Date Time Temp Pulse Resp B/P Pulse Ox O2 Delivery O2 Flow Rate FiO2 08/23/16 16:00 69 08/23/16 15:43 97.9 17 127/63 97 08/22/16 19:51 Nasal Cannula 2.0 Intake and Output 08/22/16 08/22/16 08/23/16 15:00 23:00 07:00 Intake Total 800 ml 200 ml Output Total 700 ml Balance 800 ml -500 ml Exam Constitutional: alert Psych: no complaints Head: atraumatic, normocephalic Neck: No jvd Respiratory: No clear to auscultation (faint crackles ) Cardiovascular: regular rate and rhythm, No edema, No systolic murmur Gastrointestinal: non-tender, soft Neurological: nl mental status, nl speech Results Result Diagram: 08/23/1617 08/23/1617 Results 24 hrs Laboratory Tests Test 08/22/16 17:20 08/22/16 20:54 08/22/16 20:55 08/23/16 07:17 Bedside Glucose 151 168 148 White Blood Count 9.6 Red Blood Count 3.98 L Hemoglobin 11.6 L Hematocrit 35.7 L Mean Corpuscular Volume 89.7 Mean Corpuscular Hemoglobin 29.1 Mean Corpuscular Hemoglobin Concent 32.5 Red Cell Distribution Width 12.5 Platelet Count 445 H Mean Platelet Volume 10.7 H Neutrophils % 65.8 Lymphocytes % 19.1 Monocytes % 9.6 Eosinophils % 3.9 Basophils % 0.7 Nucleated Red Blood Cells % 0.0 Neutrophils # 6.3 Lymphocytes # 1.8 Monocytes # 0.9 Eosinophils # 0.4 Basophils # 0.1 Nucleated Red Blood Cells # 0.0 Sodium Level 138 Potassium Level 3.7 Chloride Level 103 Carbon Dioxide Level 28 Anion Gap 11 # Blood Urea Nitrogen 32 H Creatinine 2.14 H Glucose Level 112 Calcium Level 9.5 Phosphorus Level 4.2 Magnesium Level 2.4 Test 08/23/16 08:28 08/23/16 11:39 Bedside Glucose 107 146 Medications Medications Current Medications Lorazepam (Ativan) 0.5 mg Q6H PRN IV ANXIETY Last administered on 08/23/16 16: 04; Admin Dose 0.5 MG; Start 08/20/16 at 06:30 Ondansetron HCl (Zofran Inj) 4 mg Q6H PRN IV NAUSEA AND/OR VOMITING; Start at 06:30 Acetaminophen (Tylenol Tab) 650 mg Q6H PRN PO PAIN LEVEL 1-3 OR FEVER Last administered on 08/21/16 22:54; Admin Dose 650 MG; Start 08/20/16 at 06:30 Amiodarone HCl (Cordarone) 200 mg DAILY PO Last administered on 08/23/16 08:50 ; Admin Dose 200 MG; Start 08/20/16 at 09:00 Aspirin (Aspirin) 81 mg DAILY PO Last administered on 08/23/16 08:37; Admin Dose 81 MG; Start 08/21/16 at 09:00 Atorvastatin Calcium (Lipitor) 10 mg QHS PO Last administered on 08/22/16 20: 56; Admin Dose 10 MG; Start 08/20/16 at 21:00 Clopidogrel Bisulfate (plaVIX) 75 mg DAILY PO Last administered on 08/23/16 08 :50; Admin Dose 75 MG; Start 08/20/16 at 09:00 EZETIMIBE (Zetia) 10 mg DAILY PO Last administered on 08/23/16 08:49; Admin Dose 10 MG; Start 08/20/16 at 09:00 Isosorbide Dinitrate (Isordil) 10 mg TID PO Last administered on 08/23/16 12: 09; Admin Dose 10 MG; Start 08/20/16 at 09:00 Miscellaneous Information 1 ea NOTE XX ; Start 08/20/16 at 07:30 Glucose (Glutose) 15 gm Q15M PRN PO DECREASED GLUCOSE; Start 08/20/16 at 07:30 Glucose (Glutose) 22.5 gm Q15M PRN PO DECREASED GLUCOSE; Start 08/20/16 at 07: 30 Dextrose (D50w Syringe) 25 ml Q15M PRN IV DECREASED GLUCOSE; Start 08/20/16 at 07:30 Dextrose (D50w Syringe) 50 ml Q15M PRN IV DECREASED GLUCOSE; Start 08/20/16 at 07:30 Glucagon (Glucagen) 1 mg Q15M PRN IM DECREASED GLUCOSE; Start 08/20/16 at 07:30 Glucose (Glutose) 15 gm Q15M PRN BUCCAL DECREASED GLUCOSE; Start 08/20/16 at 07 :30 Diagnostic Test (Pha) (Accu-Chek) 1 ea 02 XX ; Start 08/21/16 at 02:00 Heparin Sodium (Porcine) (Heparin (5000 Units/0.5 ml)) 5,000 unit BID SC Last administered on 08/23/16 08:37; Admin Dose 5,000 UNIT; Start 08/21/16 at 14:00 Pantoprazole (Protonix Tab) 40 mg DAILY@06 PO Last administered on 08/23/16 05 :22; Admin Dose 40 MG; Start 08/22/16 at 06:00 Zolpidem Tartrate (Ambien) 10 mg HS PRN PO INSOMNIA Last administered on 23:06; Admin Dose 10 MG; Start 08/21/16 at 22:00 Hydralazine HCl (Apresoline) 10 mg Q4H PRN IV ELEVATED BLOOD PRESSURE Last administered on 08/22/16 15:57; Admin Dose 10 MG; Start 08/22/16 at 04:00 Nifedipine (Procardia Xl) 60 mg DAILY PO Last administered on 5/24/17at 08:51; Admin Dose 60 MG; Start 08/22/16 at 15:00 Carvedilol (Coreg) 6.25 mg BID PO ; Start 08/23/16 at 21:00 EMILY TREVIÑO August 23, 2016 16:32
== END 2016-08-23 16:30 | disposition home or self-care (01) | DRG 291 ==
LOC: E/R 03:31 → PP2 05:50 → MS4 11:31 → TEL 08-23 14:18 → MS4 08-23 14:18
PROVIDERS: ADMIT Family Medicine; ATTEND Family Medicine
DX: I13.0 Hypertensive heart and chronic kidney disease with heart failure and stage 1 through stage 4 chronic kidney disease, or unspecified chronic kidney disease (principal); J96.01 Acute respiratory failure with hypoxia; I50.23 Acute on chronic systolic (congestive) heart failure; I50.1 Left ventricular failure, unspecified; I16.1 Hypertensive emergency; N17.9 Acute kidney failure, unspecified; N18.4 Chronic kidney disease, stage 4 (severe); I25.5 Ischemic cardiomyopathy; I70.1 Atherosclerosis of renal artery; I25.10 Atherosclerotic heart disease of native coronary artery without angina pectoris; K40.20 Bilateral inguinal hernia, without obstruction or gangrene, not specified as recurrent; E83.9 Disorder of mineral metabolism, unspecified; D64.9 Anemia, unspecified; F41.9 Anxiety disorder, unspecified; R91.8 Other nonspecific abnormal finding of lung field; R73.9 Hyperglycemia, unspecified; R73.03 Prediabetes; Z95.1 Presence of aortocoronary bypass graft; Z95.810 Presence of automatic (implantable) cardiac defibrillator; Z98.61 Coronary angioplasty status; Z86.79 Personal history of other diseases of the circulatory system
CPT/HCPCS: 36415; 71010; 71250; 74176; 76536; 80048; 80053; 81001; 81003; 82550; 82553; 82962; 83036; 83605; 83735; 83835; 83880; 84100; 84484; 85025; 85610; 85730; 86140; 87040; 87081; 87086; 93005; 93976; 96374; 96375; C9113; J0360; J0696; J1644; J1815; J1940; J2060; J2405

== ENCOUNTER 2016-08-29 22:56 | Inpatient (IN) | payer MEDICARE, OTHER ==
[~2016-08-29] VITALS: Ht 167.6 cm; Wt 71.3 kg
[~2016-08-29 22:56] MED LIST changes: -CARV12.579 PO; +CARV6.2579 PO; -HYDR-3672 PO; -LAS20 PO; +NIFE60TA7 PO
--- NOTE | 2016-08-29 23:11 | ERA ---
ER Documentation Chief Complaint Date/Time DATE: 08/29/16 TIME: 23:11 Chief Complaint HPI The patient is a 65-year-old male, presenting to the ER because of severe shortness of breath today, worse for the last few hours prior to arrival. He had similar symptoms previously. The history is mostly obtained from the certified scrub tech and medical records. I have taken care of him multiple times previously. However this is the worst, I have never seen him in. He is unable to be aroused, unable to verbalize. He was discharged from the hospital chart about a few days ago Past medical history: CAD, history of non-STEMI, dyslipidemia, history of CHF, ischemic cardiomyopathy 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%, chronic kidney disease, anxiety Past surgical history: Pacemaker, CABG ROS All systems reviewed and are negative except as per history of present illness. Medications Home Meds Active Scripts Nifedipine (Afeditab CR) 60 Mg Tablet.sa, 60 MG PO DAILY for 30 Days Prov:TRESSA RUIZ MD 08/23/16 Carvedilol* (Carvedilol*) 6.25 Mg Tablet, 6.25 MG PO BID for 30 Days, TAB Prov:TRESSA RUIZ MD 08/23/16 Atorvastatin Calcium (Atorvastatin Calcium) 10 Mg Tablet, 10 MG PO QHS, #30 TAB Prov:GIA WILDER MD 08/18/16 Aspirin* (Aspirin* Chew) 81 Mg Tab.chew, 81 MG PO DAILY, #30 TAB.CHEW Prov:GIA WILDER MD 03/07/16 Reported Medications Lisinopril* (Lisinopril*) 5 Mg Tablet, 5 MG PO DAILY, #30 TAB 08/30/16 Clopidogrel Bisulfate (Clopidogrel) 75 Mg Tablet, 75 MG PO DAILY, #30 TAB 08/16/16 Amiodarone Hcl* (Amiodarone Hcl*) 200 Mg Tablet, 200 MG PO DAILY, #30 TAB 08/16/16 Ezetimibe* (Zetia*) 10 Mg Tablet, 10 MG PO DAILY, TAB 05/21/16 Zolpidem Tartrate* (Zolpidem Tartrate*) 10 Mg Tablet, 10 MG PO QHS Y for INSOMNIA, #30 TAB 01/25/16 Discontinued Reported Medications Isosorbide Dinitrate* (Isordil*) 10 Mg Tablet, 10 MG PO TID, TAB 08/16/16 Carvedilol* (Carvedilol*) 12.5 Mg Tablet, 12.5 MG PO BID, #60 TAB 08/16/16 Discontinued Scripts Furosemide (Lasix) 20 Mg Tab, 20 MG PO DAILY, #30 TAB Prov:GIA WILDER MD 08/18/16 Hydralazine Hcl* (Apresoline*) 50 Mg Tab, 50 MG PO Q8, #120 TAB Prov:GIA WILDER MD 08/18/16 Allergies Allergies: Coded Allergies: No Known Allergy (Unverified , 08/30/16) PMhx/Soc History of Surgery: Yes (CABG,PACEMAKER 03/17 KIDNEY STENT 08/18) Anesthesia Reaction: No Hx Neurological Disorder: No Hx Respiratory Disorders: No (COPD) Hx Cardiac Disorders: Yes (HTN, CHF) Hx Psychiatric Problems: No Hx Miscellaneous Medical Probl: Yes (ANXIETY) Hx Alcohol Use: No Hx Substance Use: No Hx Tobacco Use: No Physical Exam Vitals Vital Signs Date Time Temp Pulse Resp B/P Pulse Ox O2 Delivery O2 Flow Rate FiO2 08/30/16 01:52 84 25 134/65 100 Mechanical Ventilator 08/30/16 00:30 90 16 162/84 100 08/29/16 23:48 97.6 103 16 182/100 96 Mechanical Ventilator 08/29/16 23:20 113 16 100 100 08/29/16 23:10 97.6 108 32 199/98 69 Physical Exam Const: Acute severe respiratory distress Head: Atraumatic. Eyes: Normal Conjunctiva. ENT: Normal External Ears, Nose and Mouth. Neck: Full range of motion. No meningismus. Resp: Tachypneic, bilateral expiratory wheeze Cardio: Regular tachycardic Abd: Soft, non distended, normal bowel sounds, non tender. Skin: No petechiae or rashes. Back: No midline or flank tenderness. Ext: No cyanosis, or edema. Neur: Unable to perform due to his condition Psych: Unable to perform due to his condition Result Diagram: 08/29/16 4394 08/30/16 0135 Results 24 hrs Laboratory Tests Test 08/29/16 23:24 08/29/16 23:31 08/29/16 23:37 08/30/16 00:50 Urine Color LT. YELLOW Urine Clarity CLEAR Urine pH 6.0 Urine Specific [place] 1.010 Urine Ketones NEGATIVE Urine Nitrite NEGATIVE Urine Bilirubin NEGATIVE Urine Urobilinogen 0.2 E.U./dL Urine Leukocyte Esterase NEGATIVE Urine Hemoglobin NEGATIVE Urine Glucose NEGATIVE% Urine Total Protein NEGATIVE White Blood Count 16.210^3/ul Red Blood Count 4.9810^6/ul Hemoglobin 14.1g/dl Hematocrit 46.4% Mean Corpuscular Volume 93.2fl Mean Corpuscular Hemoglobin 28.3pg Mean Corpuscular Hemoglobin Concent 30.4g/dl Red Cell Distribution Width 12.9% Platelet Count 32802^3/UL Mean Platelet Volume 11.3fl Neutrophils % 55.7% Lymphocytes % 29.6% Monocytes % 7.8% Eosinophils % 4.2% Basophils % 0.8% Nucleated Red Blood Cells % 0.0/100WBC Neutrophils # 9.010^3/ul Lymphocytes # 4.810^3/ul Monocytes # 1.310^3/ul Eosinophils # 0.710^3/ul Basophils # 0.110^3/ul Nucleated Red Blood Cells # 0.010^3/ul Prothrombin Time 13.4Sec Prothrombin Time Ratio 1.0 INR International Normalized Ratio 1.02 Activated Partial Thromboplast Time 27.3Sec Sodium Level 140mmol/L Potassium Level 6.0mmol/L Chloride Level 105mmol/L Carbon Dioxide Level 23mmol/L Anion Gap 18 Blood Urea Nitrogen 53mg/dl Creatinine 3.80mg/dl Glucose Level 223mg/dl Lactic Acid Level 2.4mmol/L Calcium Level 9.4mg/dl Total Bilirubin 0.3mg/dl Direct Bilirubin 0.00mg/dl Indirect Bilirubin 0.3mg/dl Aspartate Amino Transf (AST/SGOT) 35IU/L Alanine Aminotransferase (ALT/SGPT) 40IU/L Alkaline Phosphatase 91IU/L Troponin I 0.174ng/ml Total Protein 8.5g/dl Albumin 4.9g/dl Globulin 3.60g/dl Albumin/Globulin Ratio 1.36 Bedside Urine pH (LAB) 6.0 Bedside Urine Protein (LAB) 1+ Bedside Urine Glucose (UA) Negative Bedside Urine Ketones (LAB) Negative Bedside Urine Blood Negative Bedside Urine Nitrite (LAB) Negative Bedside Urine Leukocyte Esterase (L Negative Bedside Glucose 181mg/dL Test 08/30/16 01:00 08/30/16 01:35 Blood Gas Specimen Source Blood arterial Arterial Blood Date Drawn 08/30/2016 1:00:18 AM Arterial Blood pH (Temp corrected) 7.274 Arterial Blood pCO2 (Temp correct) 47.6mmhg Arterial Blood pO2 (Temp corrected) 143.5mmHG Arterial Blood HCO3 21.6mmol/L Arterial Blood Base Excess -5.4mmol/L Arterial Blood Oxygen Saturation 98.4mmHG Aaron Test ACCEPTAB Arterial Blood Gas Puncture Site Right Radial Arterial Blood Carboxyhemoglobin 0.3% Arterial Blood Methemoglobin 0.4% Blood Gas A-a O2 Differential 521.9mmHg Oxyhemoglobin Percent 97.7% Total Hemoglobin 14.6g/dl Blood Gas Temperature 37.0C Blood Gas Respiration Rate 16.0 Blood Gas Actual Respiration Rate 19 Blood Gas Modality VENT - AC FiO2 100.0% Blood Gas Tidal Volume 550.0mL Blood Gas Low PEEP Setting 5.0cmH2O Blood Gas Inspiratory Pressure 26.0 Blood Gas Critical Value Read Back Hannah BLANCO MD Blood Gas Notified Whom AA Blood Gas Notified Time 08/30/2016 1:14:27 AM Potassium Level 7.0mmol/L Lactic Acid Level 1.4mmol/L Current Medications Medications (Trade) Dose Ordered Sig/Deanna Route PRN Reason Start Time Stop Time Status Last Admin Dose Admin Levalbuterol (Xopenex Neb) 3.75 mg ONCE ONCE N 08/29/16 23:30 08/29/16 23:31 DC 08/29/16 23:34 Ipratropium [place] 1.5 mg 1.5 mg ONCE ONCE N 08/29/16 23:30 08/29/16 23:31 DC 08/29/16 23:34 Propofol 100 ml @ 2.045 mls/ hr TITRATE IV 08/30/16 00:00 08/30/16 00:22 Piperacillin Sod/ Tazobactam Sod 50 ml @ 100 mls/hr ONCE ONCE IVPB 08/30/16 01:00 08/30/16 01:29 DC 08/30/16 01:50 Vancomycin HCl (Vancocin) 250 ml @ 125 mls/hr ONCE IVPB 08/30/16 01:00 08/30/16 02:59 Furosemide (Lasix) 80 mg ONCE ONCE IV 08/30/16 01:00 08/30/16 01:08 DC 08/30/16 01:47 Aspirin (Aspirin) 162 mg ONCE ONCE [place] 08/30/16 01:00 08/30/16 01:08 DC 08/30/16 01:45 Acetaminophen (Tylenol Supp) 650 mg Q4H PRN WI PAIN LEVEL 1-3 OR FEVER 08/30/16 02:00 Pantoprazole (Protonix Iv) 40 mg DAILY@06 IV 08/30/16 06:00 Heparin Sodium (Porcine) (Heparin (5000 Units/0.5 ml)) 5,000 unit Q8 SC 08/30/16 02:01 Hydralazine HCl (Apresoline) 10 mg Q4H PRN IV ELEVATED blood pressure 08/30/16 02:00 Midazolam HCl (Versed) 4 mg ONCE ONCE IV 08/30/16 02:06 08/30/16 02:07 DC Procedures/[place] [id number] Radiology Main Line: [phone] DIAGNOSTIC IMAGING REPORT Patient: JUANIS PA : 1950 Age: 65 Sex: M MR #: [id number] DOS: 08/29/16 0000 Ordering MD: KEYA BLANCO MD Location: E/R Room/Bed: PROCEDURE: Portable chest x-ray. CLINICAL INDICATION: Intubation. TECHNIQUE: Portable AP view of the chest. COMPARISON: 05/22/2016. FINDINGS: An endotracheal tube terminates approximately 6.9 cm above the deana. A nasogastric tube terminates in the stomach . There is increased vascular congestion and interstitial prominence. There is mild bibasilar atelectasis. The patient is status post median sternotomy. The cardiac silhouette is not enlarged. There are aortic calcifications. There is a left chest cardiac pacemaker / AICD. There is a small left pleural effusion. There is no pneumothorax. IMPRESSION: 1. Endotracheal tube tip approximately 6.9 cm above the deana. 2. Nasogastric tube tip in the stomach. 3. Increased vascular congestion and interstitial prominence, probably representing interstitial edema. 4. Small left pleural effusion. 5. Median sternotomy and a cardiac pacemaker / AICD. 6. Aortic atherosclerosis. RPTAT: HTAR .Aris Clifton MD, MD Date Time Electronically viewed and signed by .Aris Clifton MD, MD on 08/30/2016 00:52 .R/ CC: KEYA BLANCO MD EKG: Read by emergency physician Rate/Rhythm: Sinus tachycardia 107 beats/min QRS, ST, T-waves: No ST elevation, no T inversion, first-degree AV block, LAD , left bundle branch block Impression: Abnormal EKG Endotracheal Intubation by me: Pre assessment performed. See preceding note for details. Pre-oxygenation performed with 100% oxygen RSI: Performed w/o complication or hypoxic events. Medications as ordered. Blade: [place] scope ET Tube: 7.5 cm Depth: 23cm at the lip Intubation confirmed by colorimetric CO2, equal breath sounds, quiet over the stomach. MEDICAL MAKING DECISION: The patient is a 65-year-old male, presenting with acute respiratory failure, acute CHF, acute severe sepsis, acute elevated troponin, acute hyperkalemia, acute on chronic kidney disease. He was treated with Xopenex 3.375 mg and Atrovent 1.5 mg upon arrival to the ER because of acute respiratory distress and wheezing with good response. He was admitted intubated with any difficulty, and had no behavioral restraint. He was treated with Crespo catheter and NG tube. He was treated with Zosyn IV, vancomycin IV for acute severe sepsis, Lasix 80 mg IV for acute CHF, aspirin 160 mg p.o. for acute troponin elevation, Albuterol 15 mg over 15 minutes and 2 ampules of D50 IV and 10 units of Regular Insulin IV due to acute hyperkalemia. The differential diagnoses considered include but are not limited to asthma, COPD, pneumonia, pulmonary embolus, pleural effusion, congestive heart failure, UTI, pyelonephritis, ACS, non-STEMI Admit MDM: Patient's infectious symptoms have not stabilized and the patient is at risk of rapid decompensation. The patient will be admitted for careful hydration, antibiotic therapy, and infectious source control. Severe Sepsis criteria: Infectious source: Unknown End organ damage indicated by: Lactate > 2.0 mmol/L Acute Resp Failure (sat < 92% w/o oxygen) Manager Acquisition > 2.0 Sepsis Management: Time of recognition of severe sepsis/septic shock:1140 pm Within 3 hours of recognition: Blood cultures x 2 before broad-spectrum antibiotics: Yes 30 ml/kg NS bolus not completed because patient currently has acute CHF exacerbation Initial lactate 2.4 Repeat lactate pending Critical Care: Critical care time 75 minutes Emergent fluid management while maintaining close respiratory support. Provision of immediate and broad-spectrum antibiotic therapy. Simultaneous assessment for possible sources in order to direct targeted therapy. Consideration for invasive and chemical support to prevent cardiopulmonary collapse. Septic Shock Assessment: Any lactic acid > 4.0 no Persistent hypotension (SBP < 90 or 40 mmHg drop, MAP < 65) despite 30 mL/kg IV fluid bolusno Departure Diagnosis: Primary Impression: Acute respiratory failure Additional Impressions: Acute CHF Severe sepsis Elevated troponin Hyperkalemia Acute kidney injury superimposed on chronic kidney disease Condition: Critical Comments I discussed the findings with the patient. I discussed the patient with the on- call hospitalist Dr. Salvador at 1:10 AM who was made aware of the lab, the treatment, the patient condition. The patient is admitted to ICU KEYA BLANCO MD August 29, 2016 23:11
[2016-08-29] MEDS ORDERED: IPRATROPIUM (NEB) 0.5 MG/2.5 ML AMP HHN ONE (23:30)
[2016-08-29] MEDS ORDERED: LEVALBUTEROL (NEB) 1.25 MG/0.5 ML AMP HHN ONE (23:30)
[2016-08-29 23:36] LABS: URINE BLOOD (Dip) POC Negative (NEGATIVE)
[2016-08-29 23:58] LABS: ADD SCAN DIFF NO
[2016-08-30] VITALS (31 sets, daily range): BP systolic 74–166; BP diastolic 47–58; PULSE 76–86; RESP 12–24; TEMP 96.3; Ht 167.6 cm; Wt 71.3 kg
[2016-08-30] MEDS ORDERED: ETOMIDATE 20 MG INJ ONE
[2016-08-30] MEDS ORDERED: ROCURONIUM 50 MG INJ ONE
[2016-08-30] MEDS ORDERED: PROPOFOL 100 ML IV SCH
[2016-08-30 00:04] LABS: BASOPHIL # 0.1 10^3/ul (0.0-0.1); BASOPHILS % 0.8 % (0.0-2.0); EOSINOPHILS # 0.7 10^3/ul (0.0-0.5); EOSINOPHILS % 4.2 % (0.0-7.0); HEMATOCRIT 46.4 % (42.0-52.0); HEMOGLOBIN 14.1 g/dl (14.0-18.0); LYMPHOCYTES # 4.8 10^3/ul (0.8-2.9); LYMPHOCYTES % 29.6 % (15.0-51.0); MEAN CORPUSCULAR HEMOGLOBIN 28.3 pg (29.0-33.0); MEAN CORPUSCULAR HGB CONC 30.4 g/dl (32.0-37.0); MEAN CORPUSCULAR VOLUME 93.2 fl (82.0-101.0); MEAN PLATELET VOLUME 11.3 fl (7.4-10.4); MONOCYTE # 1.3 10^3/ul (0.3-0.9); MONOCYTES % 7.8 % (0.0-11.0); NEUTROPHILS % 55.7 % (39.0-77.0); PLATELET COUNT 615 10^3/UL (140-415); RED BLOOD COUNT 4.98 10^6/ul (4.70-6.10); RED CELL DISTRIBUTION WIDTH 12.9 % (11.5-14.5); WHITE BLOOD COUNT 16.2 10^3/ul (4.8-10.8)
--- NOTE | 2016-08-30 00:06 | RADRPT ---
PROCEDURE: CHEST CLINICAL INDICATION: 65-year-old male for endotracheal and nasogastric tube placement. TECHNIQUE: AP upright views of the chest were obtained on two radiographs. The images were review ed on a PACS workstation. COMPARISON: Chest x-ray August 20, 2016; CT chest August 20, 2016. FINDINGS: There is an endotracheal tube identified with the tip in the mid trachea approximately 5.4 cm above the deana. There is a nasogastric tube identified which appears to be looped within the upper esop hagus and extends back into the neck. There is a left-sided dual chamber pacemaker. The cardiomedi astinal silhouette is enlarged. The thoracic aortic arch is calcified. Chronic lung changes are pr esent. There is pulmonary vascular congestion. There is an ovoid right perihilar upper lobe mass a gain visualized measuring approximately 8.0 x 7.0 cm. There are small bilateral pleural effusions. Superimposed infiltrates cannot be excluded. There is no evidence for pneumothorax. IMPRESSION: 1. Endotracheal tube with the tip in the mid trachea. 2. Nasogastric tube appears to be looped in the upper thoracic esophagus and extends back into the neck. This should be pulled back and repositioned. 3. Left-sided dual chamber pacemaker. 4. Status post median sternotomy. 5. Cardiomegaly. 6. Calcified thoracic aortic arch. 7. Chronic lung changes. 8. Pulmonary vascular congestion. 9. Large right perihilar/upper lobe lung mass as previously identified. 10. Small bilateral pleural effusions. CALL REPORT: A call report was made to [facility] ER Dr. Raya on August 30, 2016 at 12:00 a.m. .Bryson Nguyễn MD, Date Time Electronically viewed and signed by .Bryson Nguyễn MD, on 08/30/2016 00:05 .M/
[2016-08-30 00:12] LABS: ADD UMIC NO; URINE BILIRUBIN (Dip) NEGATIVE (NEGATIVE); URINE BLOOD (Dip) NEGATIVE (NEGATIVE); URINE COLOR LT. YELLOW (YELLOW); URINE GLUCOSE (Dip) NEGATIVE (NEGATIVE); URINE KETONES (Dip) NEGATIVE (NEGATIVE); URINE LEUKOCYTE ESTERASE (Dip) NEGATIVE (NEGATIVE); URINE NITRITE (Dip) NEGATIVE (NEGATIVE); URINE TOTAL PROTEIN (Dip) NEGATIVE (NEGATIVE); URINE UROBILINOGEN (Dip) 0.2 E.U./dL (0.1-1.0)
[2016-08-30] MEDS ORDERED: LISI-313 PO (00:21)
[2016-08-30 00:24] LABS: INR 1.02; PROTIME 13.4 Sec (12.2-14.2)
[2016-08-30 00:25] LABS: PARTIAL THROMBOPLASTIN TIME 27.3 Sec (25.0-35.0)
[2016-08-30 00:27] LABS: ALBUMIN 4.9 g/dl (3.3-4.9); ALBUMIN/GLOBULIN RATIO 1.36; BILIRUBIN,INDIRECT 0.3 mg/dl (0-1.1); BILIRUBIN,TOTAL 0.3 mg/dl (0.2-1.3); CALCIUM 9.4 mg/dl (8.4-10.2); CREATININE 3.8 mg/dl (0.61-1.24); TOTAL PROTEIN 8.5 g/dl (6.1-8.1)
[2016-08-30 00:41] LABS: TROPONIN-I 0.174 ng/ml (0.00-0.12)
--- NOTE | 2016-08-30 00:52 | RADRPT ---
PROCEDURE: Portable chest x-ray. CLINICAL INDICATION: Intubation. TECHNIQUE: Portable AP view of the chest. COMPARISON: 05/22/2016. FINDINGS: An endotracheal tube terminates approximately 6.9 cm above the deana. A nasogastric tube terminates in the stomach . There is increased vascular congestion and interstitial prominence. There is mild bibasilar atelectasis. The patient is status post median sternotomy. The cardiac silhouette is not enlarged. There are aortic calcifications. There is a left chest cardiac pacemaker / AICD. There i s a small left pleural effusion. There is no pneumothorax. IMPRESSION: 1. Endotracheal tube tip approximately 6.9 cm above the deana. 2. Nasogastric tube tip in the stomach. 3. Increased vascular congestion and interstitial prominence, probably representing interstitial ed osbaldo. 4. Small left pleural effusion. 5. Median sternotomy and a cardiac pacemaker / AICD. 6. Aortic atherosclerosis. RPTAT: HTAR .Aris Clifton MD, Date Time Electronically viewed and signed by .Aris Clifton MD, on 08/30/2016 00:52 .R/
[2016-08-30] MEDS ORDERED: ASPIRIN 300 MG SUPP PR ONE (01:00)
[2016-08-30] MEDS ORDERED: FUROSEMIDE 40 MG INJ IV ONE ×2 (01:00→08:30)
[2016-08-30] MEDS ORDERED: PIPER-TAZO 2.25 GM (PMX) 50 ML IVPB ONE (01:00)
[2016-08-30] MEDS ORDERED: VANCOMYCIN 1 GM (PMX) 250 ML IVPB SCH (01:00)
[2016-08-30 01:14] LABS: AADO2 Arterial 521.9 mmHg (7.0-24.0); Allen Test ACCEPTAB; Arterial Base Excess -5.4 mmol/L (-3.0-3); Arterial COHb 0.3 % (0.0-3.0); Arterial Fraction of Oxyhgb 97.7 % (93.0-99.0); Arterial HCO3 21.6 mmol/L (22.0-26.0); Arterial MetHb 0.4 % (0.0-1.5); Arterial Total Hemglobin 14.6 g/dl (12.0-18.0); MODE VENT - AC
[2016-08-30] MEDS ORDERED: hydrALAzine 20 MG INJ IV PRN (02:00)
[2016-08-30] MEDS ORDERED: ACETAMINOPHEN 650 MG SUPP PR PRN ×2 (02:00→03:00)
[2016-08-30] MEDS ORDERED: MIDAZOLAM 1 MG/ML 2 ML INJ IV ONE (02:06)
[2016-08-30] MEDS: HEPARIN 5,000 UNIT/0.5 ML VIAL SC SCH ×3 (02:19→21:46)
[2016-08-30] MEDS ORDERED: ALBUTEROL 0.5% (NEB) 2.5 MG/0.5 ML AMP INH ONE (02:19)
[2016-08-30] MEDS ORDERED: DEXTROSE 50% 50 ML SYRINGE IV PRN ×2 (02:30)
[2016-08-30] MEDS ORDERED: DEXTROSE 50% 50 ML SYRINGE IV ONE (02:30)
[2016-08-30] MEDS ORDERED: INSULIN REGULAR, HUMAN 100 UNIT/1 ML 3ML VIAL IV ONE (02:30)
[2016-08-30] MEDS ORDERED: GLUCOSE GEL 15 GRAM TUBE BUCCAL PRN (02:30)
[2016-08-30] MEDS ORDERED: GLUCAGON 1 MG INJ IM PRN (02:30)
[2016-08-30] MEDS ORDERED: GLUCOSE GEL 15 GRAM TUBE PO PRN ×2 (02:30)
[2016-08-30] MEDS ORDERED: HYDROmorphONE 1 MG/ML SYG IV STA (02:35)
--- NOTE | 2016-08-30 02:36 | RADRPT ---
PROCEDURE: Portable chest x-ray. CLINICAL INDICATION: Nasogastric tube placement. TECHNIQUE: Portable AP view of the chest. COMPARISON: 05/22/2016. FINDINGS: An endotracheal tube terminates approximately 3.5 cm above the deana. A nasogastric tube terminates in the stomach . There is a prominent right paratracheal mass-like opacity. Increased interstitial lung markings are noted. Airspace opacity the right lower lung is also increased. The patient is status post median sternotomy and CABG. The cardiac silhouette is not enlarged. There are aortic hair cifications. There is a left chest cardiac pacemaker / AICD. No pleural effusion is seen. There is no pneumothorax. IMPRESSION: 1. Endotracheal tube tip approximately 3.5 cm above the deana. 2. Nasogastric tube tip in the stomach.. 3. Prominent right paratracheal mass-like opacity, nonspecific. Further evaluation with contrast e nhanced CT is recommended. 4. Increased interstitial lung markings. These are nonspecific but could represent interstitial yasmani ma or a viral chest infection. 5. Increased airspace opacity the right lower lung, possibly representing alveolar edema or pneumon ia. RPTAT: HTAR .Aris Clifton MD, MD Date Time Electronically viewed and signed by .Aris Clifton MD, on 08/30/2016 02:36 .R/
[2016-08-30] MEDS ORDERED: CIPROFLOXACIN 400MG/D5W 200 ML IVPB SCH (03:00)
[2016-08-30] MEDS ORDERED: VANCOMYCIN IV PER PHARMACY XX SCH (03:00)
[2016-08-30] MEDS ORDERED: PHENYLephrine 20MG IN 250 ML 0 ML ONE (04:49)
[2016-08-30] MEDS ORDERED: MIDAZOLAM (DRIP) 50 mg/50 mL 50 ML IV SCH (04:52)
[2016-08-30] MEDS ORDERED: PHENYLephrine 20MG IN 250 ML 250 ML IV SCH (04:53)
[2016-08-30] MEDS ORDERED: MIDAZOLAM 1 MG/ML 5 ML INJ IV PRN (05:00)
[2016-08-30] MEDS ORDERED: NORepinephrine 8MG/250 ML (PMX 250 ML ONE (05:03)
[2016-08-30] MEDS ORDERED: NORepinephrine 8MG/250 ML (PMX 250 ML IV SCH (05:30)
[2016-08-30] MEDS: PANTOPRAZOLE 40 MG INJ IV SCH (05:48)
[2016-08-30] MEDS ORDERED: PANTOPRAZOLE 40 MG INJ IV SCH (06:00)
--- NOTE | 2016-08-30 07:33 | HP ---
Date/Time of Note Date/Time of Note DATE: 08/30/16 TIME: 07:30 Assessment/Plan VTE Prophylaxis VTE Prophylaxis Intervention: SCD's Lines/Catheters Urinary Cath still in place: Yes Reason Cath still needed: other (indicate) (Critical condition) Assessment/Plan Chief Complaint/Hosp Course #1 acute respiratory failure failure: Likely secondary to flash pulmonary edema versus CHF exacerbation vs pneumonia. Patient presented with severely high blood pressures and shortness of breath. Was given IV Lasix in the ED. Continue current home medications. Monitor I's and O's. Will consult nephrology as well as cardiology. #2 elevated troponin: 0.172. Continue to monitor trend troponins. This likely could be related to underlying kidney disease but will have cardiology on board as well. #3: Hyperkalemia: Patient had a potassium of 7.0: Was given insulin and D50 as well as a breathing treatment in the ED. We will continue to monitor this. #4 hypertensive emergency: Etiology at this time is unknown though patient does have a previous history of renal artery stenosis status post stenting. We will continue to monitor blood pressures. Consider pheochromocytoma. Possible underlying component of anxiety. Patient has a outpatient appointment with psychiatry scheduled. #5 lactic acidosis: Possibly secondary to infection versus tissue perfusion. At the current time will treat with broad-spectrum antibiotics for possible suspect underlying pneumonia. Continue to monitor lactate levels. #6 Leukocytosis: Patient has elevated white blood cell count of 16 Currently he is afebrile and there is no overt source of infection noted. Possible pneumonia on chest x-ray. As patient has been admitted multiple times over the last few months will cover him right now H. With Vanco Zosyn and Cipro all renally dosed. #7: Renal artery stenosis: Status post bilateral stents. We also continue to monitor the patient's blood pressure and consult nephrology for any further recommendations. #8 Severe systolic/diastolic heart failure: Patient has a history of ischemic heart myopathy with an EF of 20% and he is also had a CABG. Will continue current home medications right now will provide IV diuresis. Consult cardiology #9 Acute on chronic kidney disease: Patient is nonoliguric. Creatinine is increased from 3.8 from the previous of 2.25. Will consult nephrology for further recommendations. #10 Prediabetes: On review of labs patient has an A1c of 6.3 in May. We will repeat an A1c today. Will monitor patient's blood sugars and put him on a temporary insulin sliding scale. #11 DVT and GI prophylaxis: SCDs, Protonix Further treatment strategy will be implemented as per the clinical course Problems: HPI/ROS Admit Date/Time Admit Date/Time 08/30/16 Hx of Present Illness Chief complaint: Shortness of breath, high blood pressure The patient is a 65-year-old male, presenting to the ER because of severe shortness of breath today, worse for the last few hours prior to arrival. He had similar symptoms previously. The history is mostly obtained from the education professor and medical records. Patient was unable to be aroused as per the ED physician. Patient has presented multiple times with similar complaints flash pulmonary edema after elevated blood pressures. I spoke to the patient's son at the bedside and he stated that the patient was having blood pressure 160s systolic and he started getting worried boy his blood pressure was not going down and he can get more and more worried and warmer anxious and worked up and his blood pressure shot up even higher and then resulted in shortness of breath at this point. Allergies: NKDA Medications: See MAR ROS Subjective hx not possible: pt non-verbal, pt critical, pt critical status PMH/Family/Social Past Medical History HTN CAD s/p CABG/PCI Ischemic cardiomyopathy: EF ~20-25% S/p ICD for secondary prevention CKD PVD R sided Renal artery stenosis s/p stents Hyperuricemia Past Surgical History CABG, ICD placement, Bilateral Renal Artery stenting and Angioplasty Past Surgical Hx: coronary bypass surgery, other Past Surgical Hx: coronary bypass surgery, other Family History Significant Family History: no pertinent family hx Social History Social History Alcohol Use: rarely Smoking Status: Former smoker Drug Use: none Smoking Status: Never smoker Exam/Review of Systems Vital Signs Vitals Vital Signs Date Time Temp Pulse Resp B/P Pulse Ox O2 Delivery O2 Flow Rate FiO2 08/30/16 06:34 96.3 80 20 133/59 100 Mechanical Ventilator 08/30/16 06:00 100 Intake and Output 08/29/16 08/29/16 08/30/16 15:00 23:00 07:00 Intake Total 300 ml Output Total 290 ml Balance 10 ml Exam Exam General: Patient currently intubated and sedated. HEENT: Atraumatic, normocephalic. The pupils are equal, round and reactive. Neck: Supple with full range of motion. No rigidity or meningismus Chest: Nontender Lungs: Coarse rales bilaterally Heart: Normal S1-S2, Regular rhythm and rate. Abdomen: Soft , nontender, nondistended , bowel sounds are present. No guarding no rebound tenderness , No masses or organomegaly. Extremities: Normal to inspection, no edema no cyanosis Neurologic: Unable to assess secondary to patient being intubated. Additional Comments PROCEDURE: Portable chest x-ray. CLINICAL INDICATION: Nasogastric tube placement. TECHNIQUE: Portable AP view of the chest. COMPARISON: 05/22/2016. FINDINGS: An endotracheal tube terminates approximately 3.5 cm above the deana. A nasogastric tube terminates in the stomach . There is a prominent right paratracheal mass-like opacity. Increased interstitial lung markings are noted. Airspace opacity the right lower lung is also increased. The patient is status post median sternotomy and CABG. The cardiac silhouette is not enlarged. There are aortic calcifications. There is a left chest cardiac pacemaker / AICD. No pleural effusion is seen. There is no pneumothorax. IMPRESSION: 1. Endotracheal tube tip approximately 3.5 cm above the deana. 2. Nasogastric tube tip in the stomach.. 3. Prominent right paratracheal mass-like opacity, nonspecific. Further evaluation with contrast enhanced CT is recommended. 4. Increased interstitial lung markings. These are nonspecific but could represent interstitial edema or a viral chest infection. 5. Increased airspace opacity the right lower lung, possibly representing alveolar edema or pneumonia. EKG: Rate/Rhythm: Sinus tachycardia 107 beats/min QRS, ST, T-waves: No ST elevation, no T inversion, first-degree AV block, LAD , left bundle branch block As per ED physician documentation Labs Result Diagram: 08/29/16 2331 08/30/16 0135 Medications Medications Current Medications Propofol (Diprivan) 100 ml @ 2.045 mls/ hr TITRATE IV Last administered on 00:22; Admin Dose 2.045 MLS/HR; Start 08/30/16 at 00:00 Pantoprazole (Protonix Iv) 40 mg DAILY@06 IV Last administered on 08/30/16 05: 48; Admin Dose 40 MG; Start 08/30/16 at 06:00 Heparin Sodium (Porcine) (Heparin (5000 Units/0.5 ml)) 5,000 unit Q8 SC Last administered on 08/30/16 02:19; Admin Dose 5,000 UNIT; Start 08/30/16 at 02:01 Hydralazine HCl (Apresoline) 10 mg Q4H PRN IV ELEVATED blood pressure; Start at 02:00 Miscellaneous Information 1 ea NOTE XX ; Start 08/30/16 at 02:30 Glucose (Glutose) 15 gm Q15M PRN PO DECREASED GLUCOSE; Start 08/30/16 at 02:30 Glucose (Glutose) 22.5 gm Q15M PRN PO DECREASED GLUCOSE; Start 08/30/16 at 02: 30 Dextrose (D50w Syringe) 25 ml Q15M PRN IV DECREASED GLUCOSE; Start 08/30/16 at 02:30 Dextrose (D50w Syringe) 50 ml Q15M PRN IV DECREASED GLUCOSE; Start 08/30/16 at 02:30 Glucagon (Glucagen) 1 mg Q15M PRN IM DECREASED GLUCOSE; Start 08/30/16 at 02:30 Glucose (Glutose) 15 gm Q15M PRN BUCCAL DECREASED GLUCOSE; Start 08/30/16 at 02 :30 Acetaminophen 650 mg 650 mg Q4H PRN [place] PAIN LEVEL 1-3 OR FEVER; Start 08/30/16 at 03:00 Piperacillin Sod/ Tazobactam Sod 50 ml @ 100 mls/hr Q8 IVPB ; Start 08/30/16 at 07:30 Ciprofloxacin/ Dextrose 200 ml @ 200 mls/hr Q24H IVPB Last administered on 05:10; Admin Dose 200 MLS/HR; Start 08/30/16 at 03:00 Phenylephrine HCl 40 mg/Dextrose 500 ml @ 75 mls/hr TITRATE IV ; Start at 09:00 Midazolam HCl 50 ml @ 2 mls/hr TITRATE IV Last administered on 08/30/16 05:11 ; Admin Dose 2 MLS/HR; Start 08/30/16 at 04:52 Phenylephrine HCl 250 ml @ 75 mls/hr TITRATE IV Last administered on 05:10; Admin Dose 75 MLS/HR; Start 08/30/16 at 04:53 Norepinephrine (Levophed) 250 ml @ 1.875 mls/ hr TITRATE IV Last administered on 08/30/16t 05:29; Admin Dose 9.375 MLS/HR; Start 08/30/16 at 05:30 KARYNA SANCHEZ August 30, 2016 07:33
[2016-08-30 07:46] LABS: ADD SCAN DIFF NO
[2016-08-30 07:49] LABS: ABNORMAL IP MESSAGE 1; BASOPHIL # 0.1 10^3/ul (0.0-0.1); BASOPHILS % 0.5 % (0.0-2.0); EOSINOPHILS # 0.2 10^3/ul (0.0-0.5); EOSINOPHILS % 0.9 % (0.0-7.0); HEMATOCRIT 38.2 % (42.0-52.0); LYMPHOCYTES # 1.7 10^3/ul (0.8-2.9); LYMPHOCYTES % 7.6 % (15.0-51.0); MEAN CORPUSCULAR HEMOGLOBIN 28.5 pg (29.0-33.0); MEAN CORPUSCULAR HGB CONC 31.4 g/dl (32.0-37.0); MEAN CORPUSCULAR VOLUME 90.7 fl (82.0-101.0); MEAN PLATELET VOLUME 10.9 fl (7.4-10.4); MONOCYTE # 2.1 10^3/ul (0.3-0.9); MONOCYTES % 9.6 % (0.0-11.0); NEUTROPHIL # 17.9 10^3/ul (1.6-7.5); NEUTROPHILS % 80.2 % (39.0-77.0); PLATELET COUNT 577 10^3/UL (140-415); RED BLOOD COUNT 4.21 10^6/ul (4.70-6.10); RED CELL DISTRIBUTION WIDTH 13.2 % (11.5-14.5); WHITE BLOOD COUNT 22.3 10^3/ul (4.8-10.8)
--- NOTE | 2016-08-30 07:51 | RADRPT ---
PROCEDURE: XR Chest 1 View. CLINICAL INDICATION: Shortness of breath. TECHNIQUE: AP view of the chest was obtained. COMPARISON: August 30, 2016 at 01:48 a.m. FINDINGS: The heart size is within normal limits. Calcified atherosclerosis is noted in the aorta. Endotrache al and nasogastric tubes are stable and appear in grossly appropriate location. Left-sided dual mitul mber pacemaker/defibrillator has its leads over the heart and is unchanged. Mass-like density in the right suprahilar region is unchanged. Diffuse interstitial prominence in both lungs is stable. Han perimposed patchy alveolar infiltrates in the bilateral lower lungs are stable. The osseous structur es are unchanged. IMPRESSION: Calcified atherosclerosis in the aorta. Stable right suprahilar lung mass. Stable diffuse interstitial prominence in both lungs. Stable superimposed alveolar infiltrates in the bilateral lower lungs. RPTAT: AA .João Rivas MD, Date Time Electronically viewed and signed by .João Rivas MD, MD on 08/30/2016 07:51 .P/
[2016-08-30 07:55] LABS: AADO2 Arterial 235.1 mmHg (7.0-24.0); Allen Test ACCEPTAB; Arterial Base Excess -1.5 mmol/L (-3.0-3); Arterial COHb 0.3 % (0.0-3.0); Arterial Fraction of Oxyhgb 98.7 % (93.0-99.0); Arterial HCO3 23.7 mmol/L (22.0-26.0); Arterial MetHb 0.5 % (0.0-1.5); Arterial Total Hemglobin 13.2 g/dl (12.0-18.0); MODE VENT - AC
[2016-08-30 08:06] LABS: CREATININE 3.9 mg/dl (0.61-1.24)
[2016-08-30 08:07] LABS: CALCIUM 8.8 mg/dl (8.4-10.2); POTASSIUM 5.2 mmol/L (3.5-5.1)
[2016-08-30] MEDS: PIPER-TAZO 2.25 GM (PMX) 50 ML IVPB SCH ×3 (08:08→21:42)
--- NOTE | 2016-08-30 08:38 | CONS ---
Date/Time of Note Date/Time of Note DATE: 08/30/16 TIME: 08:18 Assessment/Plan Assessment/Plan Chief Complaint/Hosp Course Acute respiratory failure: Secondary to recurrent flash pulmonary edema and hypertensive emergency. Etiology remains unclear. He had bilateral renal artery stenosis which was thought to be the culprit but no improvement since stenting. He has a lung mass which he has so far been hesitant to evaluate and could be a neuroendocrine tumor. He also has a lesions of his ramus coronary artery which could cause ischemic MR potentially but it would be unusual in the setting of hypertension as it should cause hypotension. Shock: Initially hypertensive, then hypotensive from propofol. Possible mild cardiogenic component now in setting of propofol and acute heart failure. Acute on chronic renal failure: Cr most recently 2.2. Now 3.8. Had a renal ultrasound last week which showed patent renal arteries but may need to recheck. Hyperkalemia: up to 7.0 on admission, partially from acidemia, now resolving Acute on chronic systolic heart failure: EF 20%. Flash episodes as above Hypertensive emergency: etiology remains unclear as above. If no organic cause is found, there seems to be a strong anxiety component CAD s/p CABG/PCI: No chest pain. EKG abnormalities are likely due to hyperkalemia. Trend trops for now Bilateral renal artery stents Carotid stenosis s/p CEA -lasix 60mg IV x1 now, start on 40mg IV BID once in ICU -wean vent (optimistic that pt may be extubated sometime today as his episodes are generally short in duration and controlled once his BP is managed). Defer to pulm -wean off levophed -ASA, plavix, lipitor, zetia -hold BP meds for now as on pressor support, anticipate he will need meds by later today (start with coreg) -consider repeating renal doppler to assess for artery patency Problems: Consultation Date/Type/Reason Admit Date/Time Date of Consultation: August 30, 2016 Type of Consultation: Cardiology Reason for Consultation CHF Referring Provider: SANJUANITA SPAULDING of Present Illness 65 yo M well known to me with a h/o CAD s/p CABG and PCI (2015), ischemic cardiomyopathy with EF 20%, s/p ICD for secondary prevention, CKD (recent Cr ~ 2.2), renal artery stenosis s/p bilateral renal artery stents 5/17, carotid stenosis s/p CEA, recurrent admissions for flash pulmonary edema and hypertensive emergency, who again presented with a similar but more severe episode requiring intubation. The pt apparently was brought in by EMS due to dyspnea and he was obtunded so he was intubated. He was initially very hypertensive but then was started on propofol and became hypotensive. Eventually he was started on levophed which is now being weaned off. His K was as high as 7, now 5.2. He is awake and alert. He is able to tell me that he wants the ET tube out and he is thirsty. No chest pain. No SOB currently on the vent. He tells me that this episode was identical to the prior ones and that it started suddenly. limited as pt intubated, otherwise per HPI Past Medical History per HPI Past Surgical History Past Surgical Hx: coronary bypass surgery, other Social History Smoking Status: Never smoker Exam/Review of Systems Vital Signs Vitals Vital Signs Date Time Temp Pulse Resp B/P Pulse Ox O2 Delivery O2 Flow Rate FiO2 08/30/16 07:35 78 20 113/51 100 Mechanical Ventilator 08/30/16 07:30 100 08/30/16 06:34 96.3 Intake and Output 08/29/16 08/29/16 08/30/16 15:00 23:00 07:00 Intake Total 300 ml Output Total 290 ml Balance 10 ml Exam Constitutional: alert Head: atraumatic, normocephalic ENMT: intubated Neck: jvd (8cm) Respiratory: crackles/rales, No clear to auscultation (crackles, ronchi ) Cardiovascular: regular rate and rhythm, No edema, No systolic murmur Gastrointestinal: non-tender, soft Neurological: nl mental status Results EKG: sinus, LBBB, slightly more prominent ST elevations but also peaked TWs likely from hyperkalemia. Result Diagram: 08/30/16 0734 08/30/16733 Results 24 hrs Laboratory Tests Test 08/29/16 23:24 08/29/16 23:31 08/29/16 23:37 08/30/16 00:50 Urine Color LT. YELLOW Urine Clarity CLEAR Urine pH 6.0 Urine Specific [place] 1.010 Urine Ketones NEGATIVE Urine Nitrite NEGATIVE Urine Bilirubin NEGATIVE Urine Urobilinogen 0.2 E.U./dL Urine Leukocyte Esterase NEGATIVE Urine Hemoglobin NEGATIVE Urine Glucose NEGATIVE Urine Total Protein NEGATIVE White Blood Count 16.2 #H Red Blood Count 4.98 # Hemoglobin 14.1 # Hematocrit 46.4 # Mean Corpuscular Volume 93.2 Mean Corpuscular Hemoglobin 28.3 L Mean Corpuscular Hemoglobin Concent 30.4 L Red Cell Distribution Width 12.9 Platelet Count 615 #H Mean Platelet Volume 11.3 H Neutrophils % 55.7 Lymphocytes % 29.6 Monocytes % 7.8 Eosinophils % 4.2 Basophils % 0.8 Nucleated Red Blood Cells % 0.0 Neutrophils # 9.0 H Lymphocytes # 4.8 H Monocytes # 1.3 H Eosinophils # 0.7 H Basophils # 0.1 Nucleated Red Blood Cells # 0.0 Prothrombin Time 13.4 Prothrombin Time Ratio 1.0 INR International Normalized Ratio 1.02 Activated Partial Thromboplast Time 27.3 Sodium Level 140 Potassium Level 6.0 H Chloride Level 105 Carbon Dioxide Level 23 Anion Gap 18 H Blood Urea Nitrogen 53 H Creatinine 3.80 H Glucose Level 223 H Lactic Acid Level 2.4 H Calcium Level 9.4 Total Bilirubin 0.3 Direct Bilirubin 0.00 Indirect Bilirubin 0.3 Aspartate Amino Transf (AST/SGOT) 35 Alanine Aminotransferase (ALT/SGPT) 40 Alkaline Phosphatase 91 Troponin I 0.174 *H Total Protein 8.5 H Albumin 4.9 Globulin 3.60 H Albumin/Globulin Ratio 1.36 Bedside Urine pH (LAB) 6.0 Bedside Urine Protein (LAB) 1+ H Bedside Urine Glucose (UA) Negative Bedside Urine Ketones (LAB) Negative Bedside Urine Blood Negative Bedside Urine Nitrite (LAB) Negative Bedside Urine Leukocyte Esterase (L Negative Bedside Glucose 181 Test 08/30/16 01:00 08/30/16 01:35 08/30/16 03:23 08/30/16 03:40 Blood Gas Specimen Source Blood arterial Arterial Blood Date Drawn 08/30/2016 1:00:18 AM Arterial Blood pH (Temp corrected) 7.274 *L Arterial Blood pCO2 (Temp correct) 47.6 H Arterial Blood pO2 (Temp corrected) 143.5 H Arterial Blood HCO3 21.6 L Arterial Blood Base Excess -5.4 L Arterial Blood Oxygen Saturation 98.4 H Aaron Test ACCEPTAB Arterial Blood Gas Puncture Site Right Radial Arterial Blood Carboxyhemoglobin 0.3 Arterial Blood Methemoglobin 0.4 Blood Gas A-a O2 Differential 521.9 H Oxyhemoglobin Percent 97.7 Total Hemoglobin 14.6 Blood Gas Temperature 37.0 Blood Gas Respiration Rate 16.0 Blood Gas Actual Respiration Rate 19 Blood Gas Modality VENT - AC FiO2 100.0 Blood Gas Tidal Volume 550.0 Blood Gas Low PEEP Setting 5.0 Blood Gas Inspiratory Pressure 26.0 Blood Gas Critical Value Read Back Hannah BLANCO MD Blood Gas Notified Whom AA Blood Gas Notified Time 08/30/2016 1:14:27 AM Potassium Level 7.0 *H Lactic Acid Level 1.4 1.9 Bedside Glucose 248 H Test 08/30/16 07:17 08/30/16 07:34 Blood Gas Specimen Source Blood arterial Arterial Blood Date Drawn 08/30/2016 7:50:50 AM Arterial Blood pH (Temp corrected) 7.369 Arterial Blood pCO2 (Temp correct) 42.1 Arterial Blood pO2 (Temp corrected) 435.8 H Arterial Blood HCO3 23.7 Arterial Blood Base Excess -1.5 Arterial Blood Oxygen Saturation 99.5 H Aaron Test ACCEPTAB Arterial Blood Gas Puncture Site Right Radial Arterial Blood Carboxyhemoglobin 0.3 Arterial Blood Methemoglobin 0.5 Blood Gas A-a O2 Differential 235.1 H Oxyhemoglobin Percent 98.7 Total Hemoglobin 13.2 Blood Gas Temperature 37.0 Blood Gas Respiration Rate 20.0 Blood Gas Actual Respiration Rate 20 Blood Gas Modality VENT - AC FiO2 100.0 Blood Gas Tidal Volume 550.0 Blood Gas Notified Whom MDA Blood Gas Notified Time 08/30/2016 7:55:25 AM White Blood Count 22.3 #H Red Blood Count 4.21 L Hemoglobin 12.0 L Hematocrit 38.2 L Mean Corpuscular Volume 90.7 Mean Corpuscular Hemoglobin 28.5 L Mean Corpuscular Hemoglobin Concent 31.4 L Red Cell Distribution Width 13.2 Platelet Count 577 H Mean Platelet Volume 10.9 H Neutrophils % 80.2 H Lymphocytes % 7.6 L Monocytes % 9.6 Eosinophils % 0.9 Basophils % 0.5 Nucleated Red Blood Cells % 0.0 Neutrophils # 17.9 H Lymphocytes # 1.7 Monocytes # 2.1 H Eosinophils # 0.2 Basophils # 0.1 Nucleated Red Blood Cells # 0.0 Sodium Level 144 Potassium Level 5.2 H Chloride Level 116 H Carbon Dioxide Level 26 Anion Gap 7 #L Blood Urea Nitrogen 58 H Creatinine 3.90 H Glucose Level 125 # Calcium Level 8.8 Medications Medications Current Medications Propofol (Diprivan) 100 ml @ 2.045 mls/ hr TITRATE IV Last administered on 00:22; Admin Dose 2.045 MLS/HR; Start 08/30/16 at 00:00 Pantoprazole (Protonix Iv) 40 mg DAILY@06 IV Last administered on 08/30/16 05: 48; Admin Dose 40 MG; Start 08/30/16 at 06:00 Heparin Sodium (Porcine) (Heparin (5000 Units/0.5 ml)) 5,000 unit Q8 SC Last administered on 08/30/16 02:19; Admin Dose 5,000 UNIT; Start 08/30/16 at 02:01 Hydralazine HCl (Apresoline) 10 mg Q4H PRN IV ELEVATED blood pressure; Start at 02:00 Miscellaneous Information 1 ea NOTE XX ; Start 08/30/16 at 02:30 Glucose (Glutose) 15 gm Q15M PRN PO DECREASED GLUCOSE; Start 08/30/16 at 02:30 Glucose (Glutose) 22.5 gm Q15M PRN PO DECREASED GLUCOSE; Start 08/30/16 at 02: 30 Dextrose (D50w Syringe) 25 ml Q15M PRN IV DECREASED GLUCOSE; Start 08/30/16 at 02:30 Dextrose (D50w Syringe) 50 ml Q15M PRN IV DECREASED GLUCOSE; Start 08/30/16 at 02:30 Glucagon (Glucagen) 1 mg Q15M PRN IM DECREASED GLUCOSE; Start 08/30/16 at 02:30 Glucose (Glutose) 15 gm Q15M PRN BUCCAL DECREASED GLUCOSE; Start 08/30/16 at 02 :30 Acetaminophen 650 mg 650 mg Q4H PRN [place] PAIN LEVEL 1-3 OR FEVER; Start 08/30/16 at 03:00 Piperacillin Sod/ Tazobactam Sod 50 ml @ 100 mls/hr Q8 IVPB Last administered on 08/30/16 08:08; Admin Dose 100 MLS/HR; Start 08/30/16 at 07:30 Ciprofloxacin/ Dextrose 200 ml @ 200 mls/hr Q24H IVPB Last administered on 05:10; Admin Dose 200 MLS/HR; Start 08/30/16 at 03:00 Phenylephrine HCl 40 mg/Dextrose 500 ml @ 75 mls/hr TITRATE IV ; Start at 09:00 Midazolam HCl 50 ml @ 2 mls/hr TITRATE IV Last administered on 08/30/16 05:11 ; Admin Dose 2 MLS/HR; Start 08/30/16 at 04:52 Phenylephrine HCl 250 ml @ 75 mls/hr TITRATE IV Last administered on 05:10; Admin Dose 75 MLS/HR; Start 08/30/16 at 04:53 Norepinephrine (Levophed) 250 ml @ 1.875 mls/ hr TITRATE IV Last administered on 08/30/16 05:29; Admin Dose 9.375 MLS/HR; Start 08/30/16 at 05:30 Furosemide (Lasix) 60 mg ONCE ONCE IV ; Start 08/30/16 at 08:30; Stop 08/30/16 at 08:31 EMILY TREVIÑO August 30, 2016 08:37
[2016-08-30] MEDS ORDERED: AMIODARONE 200 MG TAB PO SCH (09:00)
[2016-08-30] MEDS ORDERED: PHENYLephrine 40 MG in DEXTROSE 5% 496 ML IV SCH (09:00)
[2016-08-30] MEDS: EZETIMIBE 10 MG TAB PO SCH (10:40)
[2016-08-30] MEDS: CLOPIDOGREL 75 MG TAB PO SCH (10:40)
[2016-08-30] MEDS ORDERED: AMIO100T4 PO (11:50)
--- NOTE | 2016-08-30 12:15 | CONS ---
Date/Time of Note Date/Time of Note DATE: 08/30/16 TIME: 12:09 Assessment/Plan Assessment/Plan Additional Assessment/Plan Serial chest x-rays were reviewed which are showing endotracheal tube at an adequate level. Mild pulmonary edema is present. Bilateral perihilar infiltrates are present. With the possibility of masslike lesion in the right midlung. Current ventilator setting; AC of 20, tidal volume 550, PEEP of 5, 35% FiO2. Assessment recommendations; 1. Patient admitted for recurrent respiratory failure with the possibility of superimposed bilateral pneumonia with ongoing CHF. 2. Multiple other comorbidities including history of multiple MIs, CHF, hypertension, renal artery stenosis, carotid stenosis. 3. Renal insufficiency. 4. Possibly right midlung mass. Continue current treatment. Continue current ventilator settings, antibiotics. Obtain a CT chest without contrast. Continue Lasix. Will obtain follow-up chest x-ray in 24 hours. I did have a very detailed discussion the patient's son at bedside and answered all his questions. Consultation Date/Type/Reason Admit Date/Time Date of Consultation: August 30, 2016 Type of Consultation: Pulmonary/critical care Reason for Consultation Pulmonary consultations requested for evaluation of respiratory failure. History of presenting any; patient is a 65-year-old white male who was brought into the emergency room yesterday with complaints of shortness of breath going on for the last few weeks. Upon evaluation patient was in respiratory failure and was intubated by ER physician. No CPR was done. By the time I saw the patient and ER the patient is orally intubated completely awake and alert. According the patient's son the patient has been having significant shortness of breath ever since his bypass surgery last year and has had multiple admissions to various hospitals. Patient also has had a episode of respiratory failure in January of last year requiring intubation. During current episode patient did not have any chest pain any wheezing coughing or sputum production. No show any nausea vomiting. Past medical history; next 1. History of multiple MIs, status post bypass surgery in October 2015 with subsequent graft closure requiring PTCA with stenting. 2. Renal insufficiency. 3. COPD. 4. History of pacemaker placement. 5. Left carotid stenosis, status post open endarterectomy. 6. History of bilateral renal artery stenting. 7. Hypertension. Medications; were reviewed. Allergies; none. Social history; patient recently quit smoking about a year ago. Most of alcohol or drug abuse. Family history; patient is he has 4 children. Various family members of diabetes hypertension. 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 Review systems; limited review of system could be obtained patient denies any shortness of breath chest pain abdominal pain nausea vomiting fever chills. General exam; elderly male, orally intubated, currently in no distress. Awake and alert. Past Surgical History Past Surgical Hx: coronary bypass surgery, other Social History Smoking Status: Never smoker Exam/Review of Systems Vital Signs Vitals Vital Signs Date Time Temp Pulse Resp B/P Pulse Ox O2 Delivery O2 Flow Rate FiO2 08/30/16 11:20 74 20 106/51 100 Mechanical Ventilator 08/30/16 08:59 50 08/30/16 06:34 96.3 Intake and Output 08/29/16 08/29/16 08/30/16 15:00 23:00 07:00 Intake Total 300 ml Output Total 290 ml Balance 10 ml Exam HEENT exam; supple neck, positive JVD. No lymphadenopathy. Midline trachea. No thyromegaly. Orally intubated. Pupils are equal and reactive to light. There is a well-healed left carotid scar. Patient has fair dentition. Neck Chest examined; diminished but clear vessel. S1-S2 audible, no murmurs. Regular rhythm. Is a pacemaker in left chest wall. There is a well-healed sternal scar. Abdomen examination; soft, nondistended, no organomegaly. Bowel sounds audible. Extremity exam; no peripheral edema. BUSINESS LIBRARIAN exam is; patient is awake, alert, follows commands and moves all 4 extremities on command. Results Result Diagram: 08/30/16 0734 08/30/16 0734 Results 24 hrs Laboratory Tests Test 08/29/16 23:24 08/29/16 23:31 08/29/16 23:37 08/30/16 00:50 Urine Color LT. YELLOW Urine Clarity CLEAR Urine pH 6.0 Urine Specific [place] 1.010 Urine Ketones NEGATIVE Urine Nitrite NEGATIVE Urine Bilirubin NEGATIVE Urine Urobilinogen 0.2 E.U./dL Urine Leukocyte Esterase NEGATIVE Urine Hemoglobin NEGATIVE Urine Glucose NEGATIVE Urine Total Protein NEGATIVE White Blood Count 16.2 #H Red Blood Count 4.98 # Hemoglobin 14.1 # Hematocrit 46.4 # Mean Corpuscular Volume 93.2 Mean Corpuscular Hemoglobin 28.3 L Mean Corpuscular Hemoglobin Concent 30.4 L Red Cell Distribution Width 12.9 Platelet Count 615 #H Mean Platelet Volume 11.3 H Neutrophils % 55.7 Lymphocytes % 29.6 Monocytes % 7.8 Eosinophils % 4.2 Basophils % 0.8 Nucleated Red Blood Cells % 0.0 Neutrophils # 9.0 H Lymphocytes # 4.8 H Monocytes # 1.3 H Eosinophils # 0.7 H Basophils # 0.1 Nucleated Red Blood Cells # 0.0 Prothrombin Time 13.4 Prothrombin Time Ratio 1.0 INR International Normalized Ratio 1.02 Activated Partial Thromboplast Time 27.3 Sodium Level 140 Potassium Level 6.0 H Chloride Level 105 Carbon Dioxide Level 23 Anion Gap 18 H Blood Urea Nitrogen 53 H Creatinine 3.80 H Glucose Level 223 H Lactic Acid Level 2.4 H Calcium Level 9.4 Total Bilirubin 0.3 Direct Bilirubin 0.00 Indirect Bilirubin 0.3 Aspartate Amino Transf (AST/SGOT) 35 Alanine Aminotransferase (ALT/SGPT) 40 Alkaline Phosphatase 91 Troponin I 0.174 *H Total Protein 8.5 H Albumin 4.9 Globulin 3.60 H Albumin/Globulin Ratio 1.36 Bedside Urine pH (LAB) 6.0 Bedside Urine Protein (LAB) 1+ H Bedside Urine Glucose (UA) Negative Bedside Urine Ketones (LAB) Negative Bedside Urine Blood Negative Bedside Urine Nitrite (LAB) Negative Bedside Urine Leukocyte Esterase (L Negative Bedside Glucose 181 Test 08/30/16 01:00 08/30/16 01:35 08/30/16 03:23 08/30/16 03:40 Blood Gas Specimen Source Blood arterial Arterial Blood Date Drawn 08/30/2016 1:00:18 AM Arterial Blood pH (Temp corrected) 7.274 *L Arterial Blood pCO2 (Temp correct) 47.6 H Arterial Blood pO2 (Temp corrected) 143.5 H Arterial Blood HCO3 21.6 L Arterial Blood Base Excess -5.4 L Arterial Blood Oxygen Saturation 98.4 H Aaron Test ACCEPTAB Arterial Blood Gas Puncture Site Right Radial Arterial Blood Carboxyhemoglobin 0.3 Arterial Blood Methemoglobin 0.4 Blood Gas A-a O2 Differential 521.9 H Oxyhemoglobin Percent 97.7 Total Hemoglobin 14.6 Blood Gas Temperature 37.0 Blood Gas Respiration Rate 16.0 Blood Gas Actual Respiration Rate 19 Blood Gas Modality VENT - AC FiO2 100.0 Blood Gas Tidal Volume 550.0 Blood Gas Low PEEP Setting 5.0 Blood Gas Inspiratory Pressure 26.0 Blood Gas Critical Value Read Back Hannah BLANCO MD Blood Gas Notified Whom AA Blood Gas Notified Time 08/30/2016 1:14:27 AM Potassium Level 7.0 *H Lactic Acid Level 1.4 1.9 Bedside Glucose 248 H Test 08/30/16 07:17 08/30/16 07:34 Blood Gas Specimen Source Blood arterial Arterial Blood Date Drawn 08/30/2016 7:50:50 AM Arterial Blood pH (Temp corrected) 7.369 Arterial Blood pCO2 (Temp correct) 42.1 Arterial Blood pO2 (Temp corrected) 435.8 H Arterial Blood HCO3 23.7 Arterial Blood Base Excess -1.5 Arterial Blood Oxygen Saturation 99.5 H Aaron Test ACCEPTAB Arterial Blood Gas Puncture Site Right Radial Arterial Blood Carboxyhemoglobin 0.3 Arterial Blood Methemoglobin 0.5 Blood Gas A-a O2 Differential 235.1 H Oxyhemoglobin Percent 98.7 Total Hemoglobin 13.2 Blood Gas Temperature 37.0 Blood Gas Respiration Rate 20.0 Blood Gas Actual Respiration Rate 20 Blood Gas Modality VENT - AC FiO2 100.0 Blood Gas Tidal Volume 550.0 Blood Gas Notified Whom MDA Blood Gas Notified Time 08/30/2016 7:55:25 AM White Blood Count 22.3 #H Red Blood Count 4.21 L Hemoglobin 12.0 L Hematocrit 38.2 L Mean Corpuscular Volume 90.7 Mean Corpuscular Hemoglobin 28.5 L Mean Corpuscular Hemoglobin Concent 31.4 L Red Cell Distribution Width 13.2 Platelet Count 577 H Mean Platelet Volume 10.9 H Neutrophils % 80.2 H Lymphocytes % 7.6 L Monocytes % 9.6 Eosinophils % 0.9 Basophils % 0.5 Nucleated Red Blood Cells % 0.0 Neutrophils # 17.9 H Lymphocytes # 1.7 Monocytes # 2.1 H Eosinophils # 0.2 Basophils # 0.1 Nucleated Red Blood Cells # 0.0 Sodium Level 144 Potassium Level 5.2 H Chloride Level 116 H Carbon Dioxide Level 26 Anion Gap 7 #L Blood Urea Nitrogen 58 H Creatinine 3.90 H Glucose Level 125 # Calcium Level 8.8 Troponin I 0.332 *H C-Reactive Protein 2.6 H Medications Medications Current Medications Propofol (Diprivan) 100 ml @ 2.045 mls/ hr TITRATE IV Last administered on t 00:22; Admin Dose 2.045 MLS/HR; Start 08/30/16 at 00:00 Pantoprazole (Protonix Iv) 40 mg DAILY@06 IV Last administered on 08/30/16 05: 48; Admin Dose 40 MG; Start 08/30/16 at 06:00 Heparin Sodium (Porcine) (Heparin (5000 Units/0.5 ml)) 5,000 unit Q8 SC Last administered on 08/30/16 02:19; Admin Dose 5,000 UNIT; Start 08/30/16 at 02:01 Hydralazine HCl (Apresoline) 10 mg Q4H PRN IV ELEVATED blood pressure; Start at 02:00 Miscellaneous Information 1 ea NOTE XX ; Start 08/30/16 at 02:30 Glucose (Glutose) 15 gm Q15M PRN PO DECREASED GLUCOSE; Start 08/30/16 at 02:30 Glucose (Glutose) 22.5 gm Q15M PRN PO DECREASED GLUCOSE; Start 08/30/16 at 02: 30 Dextrose (D50w Syringe) 25 ml Q15M PRN IV DECREASED GLUCOSE; Start 08/30/16 at 02:30 Dextrose (D50w Syringe) 50 ml Q15M PRN IV DECREASED GLUCOSE; Start 08/30/16 at 02:30 Glucagon (Glucagen) 1 mg Q15M PRN IM DECREASED GLUCOSE; Start 08/30/16 at 02:30 Glucose (Glutose) 15 gm Q15M PRN BUCCAL DECREASED GLUCOSE; Start 08/30/16 at 02 :30 Acetaminophen 650 mg 650 mg Q4H PRN VT PAIN LEVEL 1-3 OR FEVER; Start 08/30/16 at 03:00 Piperacillin Sod/ Tazobactam Sod 50 ml @ 100 mls/hr Q8 IVPB Last administered on 08/30/16 08:08; Admin Dose 100 MLS/HR; Start 08/30/16 at 07:30 Ciprofloxacin/ Dextrose 200 ml @ 200 mls/hr Q24H IVPB Last administered on 05:10; Admin Dose 200 MLS/HR; Start 08/30/16 at 03:00 Phenylephrine HCl 40 mg/Dextrose 500 ml @ 75 mls/hr TITRATE IV ; Start at 09:00 Midazolam HCl 50 ml @ 2 mls/hr TITRATE IV Last administered on 08/30/16 05:11 ; Admin Dose 2 MLS/HR; Start 08/30/16 at 04:52 Phenylephrine HCl 250 ml @ 75 mls/hr TITRATE IV Last administered on 05:10; Admin Dose 75 MLS/HR; Start 08/30/16 at 04:53 Norepinephrine (Levophed) 250 ml @ 1.875 mls/ hr TITRATE IV Last administered on 08/30/16 05:29; Admin Dose 9.375 MLS/HR; Start 08/30/16 at 05:30 Atorvastatin Calcium (Lipitor) 10 mg QHS PO ; Start 08/30/16 at 21:00 Clopidogrel Bisulfate (plaVIX) 75 mg DAILY PO Last administered on 08/30/16 10 :40; Admin Dose 75 MG; Start 08/30/16 at 09:00 EZETIMIBE (Zetia) 10 mg DAILY PO Last administered on 08/30/16 10:40; Admin Dose 10 MG; Start 08/30/16 at 09:00 Amiodarone HCl (Cordarone) 100 mg DAILY PO ; Start 08/31/16 at 09:00; Status YUE CONLEY August 30, 2016 12:15
[2016-08-30] MEDS ORDERED: NA POLYST SULFON 15 GM/60 ML BTL PO ONE (12:30)
[2016-08-30 14:00] LABS: POTASSIUM 4.8 mmol/L (3.5-5.1)
[2016-08-30 14:03] LABS: CALCIUM 9.1 mg/dl (8.4-10.2); CREATININE 3.92 mg/dl (0.61-1.24)
[2016-08-30 14:30] LABS: ADD UMIC YES; URINE BILIRUBIN (Dip) NEGATIVE (NEGATIVE); URINE BLOOD (Dip) NEGATIVE (NEGATIVE); URINE COLOR LT. YELLOW (YELLOW); URINE GLUCOSE (Dip) NEGATIVE (NEGATIVE); URINE KETONES (Dip) NEGATIVE (NEGATIVE); URINE LEUKOCYTE ESTERASE (Dip) TRACE (NEGATIVE); URINE NITRITE (Dip) NEGATIVE (NEGATIVE); URINE TOTAL PROTEIN (Dip) NEGATIVE (NEGATIVE); URINE UROBILINOGEN (Dip) 0.2 E.U./dL (0.1-1.0)
[2016-08-30 14:41] LABS: URINE RBCS 0-2 /HPF (0)
--- NOTE | 2016-08-30 15:37 | RADRPT ---
PROCEDURE: CT Chest without contrast. CLINICAL INDICATION: Right lung mass. TECHNIQUE: Multiple contiguous helical CT images of the chest were obtained without the administra tion of intravenous contrast. Coronal and sagittal reformatted images were obtained from the source images. CTDIvol (mGy): 10.41; Total Exam DLP (mGy-cm): 438.04. One or more of the following dose reduction techniques were utilized: - Automated exposure control. - Adjustment of the mA and/or kV according to patient size. - Use of iterative reconstruction technique. COMPARISON: Chest x-ray 08/30/2016. CT chest 08/20/2016. FINDINGS: Limited imaging of the lower neck is unremarkable. The heart is enlarged. Pacemaker and ICD leads terminate within the right atrium and right ventricle , respectively. There is no pericardial effusion. There is no bulky mediastinal, hilar or axillary lymphadenopathy. Multiple small mediastinal lymph nodes are present and unchanged. The prominent rig ht paratracheal lymph node is unchanged. Small calcified left hilar lymph nodes are present. The th oracic aorta is normal in caliber. Thoracic aortic and coronary artery calcification are present. The pulmonary arteries are not enlarged. Trace bilateral pleural fluid is present. Patchy basilar consolidation has slightly increased. A l arge 6.7 cm mass of the posterior aspect of the right upper lobe is again identified and unchanged. Centrilobular emphysematous disease is seen throughout the bilateral upper lungs. Scattered patchy g round-glass opacification throughout the lungs is grossly unchanged. Mild diffuse bronchial wall th ickening is present. A small calcified granuloma of the left lower lobe is present. Limited imaging of the upper abdomen demonstrates an enteric tube within the body of the stomach. Median sternotomy wires are in place. There are mild degenerative changes of the upper mid thoracic spine are observed. Chest wall soft tissues are unremarkable. IMPRESSION: Right upper lobe neoplasm, unchanged. Cardiomegaly and atherosclerosis with trace bilateral pleural effusions. Emphysematous disease. Patchy basilar consolidation, increased and likely partially due to atelectasis. RPTAT: HLST .Deborah Flores MD, MD Date Time Electronically viewed and signed by .Deborah Flores MD, on 08/30/2016 15:37 .T/
--- NOTE | 2016-08-30 15:46 | PN ---
Date/Time of Note Date/Time of Note DATE: 08/30/16 TIME: 15:35 Assessment/Plan VTE Prophylaxis VTE Prophylaxis Intervention: heparin Lines/Catheters IV C[facility]ter Type (from [facility]): Central Line Central line still needed: Yes Urinary Cath still in place: Yes Reason Cath still needed: other (indicate) Assessment/Plan Chief Complaint/Hosp Course Assessment and plan #1 acute respiratory failure failure: Likely secondary to flash pulmonary edema versus CHF exacerbation vs pneumonia. Status post IV Lasix in the ED. Continue current home medications. Monitor I's and O's. Guest Services Director has been consulted #2 elevated troponin: 0.172. Continue to monitor trend troponins. Likely secondary to acute on chronic renal insufficiency and CHF exacerbation Follow-up cardiology recommendations #3: Hyperkalemia: Likely secondary to acute renal insufficiency and medication induced hyperkalemia Nephrology has been consulted, patient is status post insulin treatment in the course of emergency room #4 hypertensive emergency: Etiology at this time is unknown though patient does have a previous history of renal artery stenosis status post stenting. We will continue to monitor blood pressures. Possible underlying component of anxiety. Continue medical management #5 lactic acidosis: Likely secondary to suspected pneumonia Continue vancomycin and Zosyn Continue to monitor lactic acid levels #6 Renal artery stenosis: Status post bilateral stents. We also continue to monitor the patient's blood pressure and consult nephrology for any further recommendations. 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 Will continue current home medications right now will provide IV diuresis. cardiology Consulted #8 Acute on chronic kidney disease: Patient is nonoliguric. Likely medication induced renal insufficiency, creatinine is increased from 3.8 from the previous of 2.25. Nephrology has been consulted Caution with nephrotoxic medications #9 Prediabetes: On review of labs patient has an A1c of 6.3 in May. Continue to monitor #10 Large right perihilar, lobe lung mass Chronic, patient has refused biopsy in the past Pulmonology has been consulted, will continue to monitor DVT and GI prophylaxis: SCDs, Protonix Further treatment strategy will be implemented as per the clinical course Problems: Subjective 24 Hr Interval Summary Free Text/Dictation Patient has been intubated in the course of emergency room and transferred to ICU He is awake alert oriented He is able to follow commands without any difficulty Urine output 2 L Exam/Review of Systems Vital Signs Vitals Vital Signs Date Time Temp Pulse Resp B/P Pulse Ox O2 Delivery O2 Flow Rate FiO2 08/30/16 14:56 73 20 113/61 100 Mechanical Ventilator 08/30/16 13:00 35 08/30/16 06:34 96.3 Intake and Output 08/29/16 08/29/16 08/30/16 15:00 23:00 07:00 Intake Total 300 ml Output Total 290 ml Balance 10 ml Exam General: The patient is intubated, Not in acute distress. HEENT: Atraumatic, normocephalic. The pupils are equal and round . Neck: Supple Chest: Normal expansion of the thorax during inspiration Lungs: Decreased breath sounds bilateral lower lung field with positive crackles Heart: Normal S1-S2, Regular rhythm and rate. Abdomen: Soft , nontender, nondistended , bowel sounds are present. Extremities: Normal to inspection, no edema no cyanosis Neurologic: Normal mental status,The patient is awake, alert and oriented . Results Result Diagram: 08/30/16 0734 08/30/16 1235 Results 24 hrs Laboratory Tests Test 08/29/16 23:24 08/29/16 23:31 08/29/16 23:37 08/30/16 00:50 Urine Color LT. YELLOW Urine Clarity CLEAR Urine pH 6.0 Urine Specific [place] 1.010 Urine Ketones NEGATIVE Urine Nitrite NEGATIVE Urine Bilirubin NEGATIVE Urine Urobilinogen 0.2 E.U./dL Urine Leukocyte Esterase NEGATIVE Urine Hemoglobin NEGATIVE Urine Glucose NEGATIVE Urine Total Protein NEGATIVE White Blood Count 16.2 #H Red Blood Count 4.98 # Hemoglobin 14.1 # Hematocrit 46.4 # Mean Corpuscular Volume 93.2 Mean Corpuscular Hemoglobin 28.3 L Mean Corpuscular Hemoglobin Concent 30.4 L Red Cell Distribution Width 12.9 Platelet Count 615 #H Mean Platelet Volume 11.3 H Neutrophils % 55.7 Lymphocytes % 29.6 Monocytes % 7.8 Eosinophils % 4.2 Basophils % 0.8 Nucleated Red Blood Cells % 0.0 Neutrophils # 9.0 H Lymphocytes # 4.8 H Monocytes # 1.3 H Eosinophils # 0.7 H Basophils # 0.1 Nucleated Red Blood Cells # 0.0 Prothrombin Time 13.4 Prothrombin Time Ratio 1.0 INR International Normalized Ratio 1.02 Activated Partial Thromboplast Time 27.3 Sodium Level 140 Potassium Level 6.0 H Chloride Level 105 Carbon Dioxide Level 23 Anion Gap 18 H Blood Urea Nitrogen 53 H Creatinine 3.80 H Glucose Level 223 H Lactic Acid Level 2.4 H Calcium Level 9.4 Total Bilirubin 0.3 Direct Bilirubin 0.00 Indirect Bilirubin 0.3 Aspartate Amino Transf (AST/SGOT) 35 Alanine Aminotransferase (ALT/SGPT) 40 Alkaline Phosphatase 91 Troponin I 0.174 *H Total Protein 8.5 H Albumin 4.9 Globulin 3.60 H Albumin/Globulin Ratio 1.36 Bedside Urine pH (LAB) 6.0 Bedside Urine Protein (LAB) 1+ H Bedside Urine Glucose (UA) Negative Bedside Urine Ketones (LAB) Negative Bedside Urine Blood Negative Bedside Urine Nitrite (LAB) Negative Bedside Urine Leukocyte Esterase (L Negative Bedside Glucose 181 Test 08/30/16 01:00 08/30/16 01:35 08/30/16 03:23 08/30/16 03:40 Blood Gas Specimen Source Blood arterial Arterial Blood Date Drawn 08/30/2016 1:00:18 AM Arterial Blood pH (Temp corrected) 7.274 *L Arterial Blood pCO2 (Temp correct) 47.6 H Arterial Blood pO2 (Temp corrected) 143.5 H Arterial Blood HCO3 21.6 L Arterial Blood Base Excess -5.4 L Arterial Blood Oxygen Saturation 98.4 H Aaron Test ACCEPTAB Arterial Blood Gas Puncture Site Right Radial Arterial Blood Carboxyhemoglobin 0.3 Arterial Blood Methemoglobin 0.4 Blood Gas A-a O2 Differential 521.9 H Oxyhemoglobin Percent 97.7 Total Hemoglobin 14.6 Blood Gas Temperature 37.0 Blood Gas Respiration Rate 16.0 Blood Gas Actual Respiration Rate 19 Blood Gas Modality VENT - AC FiO2 100.0 Blood Gas Tidal Volume 550.0 Blood Gas Low PEEP Setting 5.0 Blood Gas Inspiratory Pressure 26.0 Blood Gas Critical Value Read Back Hannah BLANCO MD Blood Gas Notified Whom AA Blood Gas Notified Time 08/30/2016 1:14:27 AM Potassium Level 7.0 *H Lactic Acid Level 1.4 1.9 Bedside Glucose 248 H Test 08/30/16 07:17 08/30/16 07:34 08/30/16 12:25 08/30/16 12:35 Blood Gas Specimen Source Blood arterial Arterial Blood Date Drawn 08/30/2016 7:50:50 AM Arterial Blood pH (Temp corrected) 7.369 Arterial Blood pCO2 (Temp correct) 42.1 Arterial Blood pO2 (Temp corrected) 435.8 H Arterial Blood HCO3 23.7 Arterial Blood Base Excess -1.5 Arterial Blood Oxygen Saturation 99.5 H Aaron Test ACCEPTAB Arterial Blood Gas Puncture Site Right Radial Arterial Blood Carboxyhemoglobin 0.3 Arterial Blood Methemoglobin 0.5 Blood Gas A-a O2 Differential 235.1 H Oxyhemoglobin Percent 98.7 Total Hemoglobin 13.2 Blood Gas Temperature 37.0 Blood Gas Respiration Rate 20.0 Blood Gas Actual Respiration Rate 20 Blood Gas Modality VENT - AC FiO2 100.0 Blood Gas Tidal Volume 550.0 Blood Gas Notified Whom MDA Blood Gas Notified Time 08/30/2016 7:55:25 AM White Blood Count 22.3 #H Red Blood Count 4.21 L Hemoglobin 12.0 L Hematocrit 38.2 L Mean Corpuscular Volume 90.7 Mean Corpuscular Hemoglobin 28.5 L Mean Corpuscular Hemoglobin Concent 31.4 L Red Cell Distribution Width 13.2 Platelet Count 577 H Mean Platelet Volume 10.9 H Neutrophils % 80.2 H Lymphocytes % 7.6 L Monocytes % 9.6 Eosinophils % 0.9 Basophils % 0.5 Nucleated Red Blood Cells % 0.0 Neutrophils # 17.9 H Lymphocytes # 1.7 Monocytes # 2.1 H Eosinophils # 0.2 Basophils # 0.1 Nucleated Red Blood Cells # 0.0 Sodium Level 144 143 Potassium Level 5.2 H 4.8 Chloride Level 116 H 115 H Carbon Dioxide Level 26 25 Anion Gap 7 #L 8 Blood Urea Nitrogen 58 H 60 H Creatinine 3.90 H 3.92 H Glucose Level 125 # 136 Calcium Level 8.8 9.1 Troponin I 0.332 *H 0.260 *H C-Reactive Protein 2.6 H Test 08/30/16 14:00 Urine Color LT. YELLOW Urine Clarity CLEAR Urine pH 5.5 Urine Specific [place] 1.015 Urine Ketones NEGATIVE Urine Nitrite NEGATIVE Urine Bilirubin NEGATIVE Urine Urobilinogen 0.2 E.U./dL Urine Leukocyte Esterase TRACE H Urine Microscopic RBC 0-2 Urine Microscopic WBC 2-5 Urine Hemoglobin NEGATIVE Urine Random Creatinine 33.61 Urine Random Sodium 98 H Urine Glucose NEGATIVE Urine Total Protein 11.0 Medications Medications Current Medications Propofol (Diprivan) 100 ml @ 2.045 mls/ hr TITRATE IV Last administered on 00:22; Admin Dose 2.045 MLS/HR; Start 08/30/16 at 00:00 Pantoprazole (Protonix Iv) 40 mg DAILY@06 IV Last administered on 08/30/16 05: 48; Admin Dose 40 MG; Start 08/30/16 at 06:00 Heparin Sodium (Porcine) (Heparin (5000 Units/0.5 ml)) 5,000 unit Q8 SC Last administered on 08/30/16 14:45; Admin Dose 5,000 UNIT; Start 08/30/16 at 02:01 Hydralazine HCl (Apresoline) 10 mg Q4H PRN IV ELEVATED blood pressure; Start at 02:00 Miscellaneous Information 1 ea NOTE XX ; Start 08/30/16 at 02:30 Glucose (Glutose) 15 gm Q15M PRN PO DECREASED GLUCOSE; Start 08/30/16 at 02:30 Glucose (Glutose) 22.5 gm Q15M PRN PO DECREASED GLUCOSE; Start 08/30/16 at 02: 30 Dextrose (D50w Syringe) 25 ml Q15M PRN IV DECREASED GLUCOSE; Start 08/30/16 at 02:30 Dextrose (D50w Syringe) 50 ml Q15M PRN IV DECREASED GLUCOSE; Start 08/30/16 at 02:30 Glucagon (Glucagen) 1 mg Q15M PRN IM DECREASED GLUCOSE; Start 08/30/16 at 02:30 Glucose (Glutose) 15 gm Q15M PRN BUCCAL DECREASED GLUCOSE; Start 08/30/16 at 02 :30 Acetaminophen 650 mg 650 mg Q4H PRN ME PAIN LEVEL 1-3 OR FEVER; Start 08/30/16 at 03:00 Piperacillin Sod/ Tazobactam Sod 50 ml @ 100 mls/hr Q8 IVPB Last administered on 08/30/16 14:34; Admin Dose 100 MLS/HR; Start 08/30/16 at 07:30 Ciprofloxacin/ Dextrose 200 ml @ 200 mls/hr Q24H IVPB Last administered on 05:10; Admin Dose 200 MLS/HR; Start 08/30/16 at 03:00 Phenylephrine HCl 40 mg/Dextrose 500 ml @ 75 mls/hr TITRATE IV ; Start at 09:00 Midazolam HCl 50 ml @ 2 mls/hr TITRATE IV Last administered on 08/30/16 05:11 ; Admin Dose 2 MLS/HR; Start 08/30/16 at 04:52 Phenylephrine HCl 250 ml @ 75 mls/hr TITRATE IV Last administered on 05:10; Admin Dose 75 MLS/HR; Start 08/30/16 at 04:53 Norepinephrine (Levophed) 250 ml @ 1.875 mls/ hr TITRATE IV Last administered on 08/30/16 05:29; Admin Dose 9.375 MLS/HR; Start 08/30/16 at 05:30 Atorvastatin Calcium (Lipitor) 10 mg QHS PO ; Start 08/30/16 at 21:00 Clopidogrel Bisulfate (plaVIX) 75 mg DAILY PO Last administered on 08/30/16 10 :40; Admin Dose 75 MG; Start 08/30/16 at 09:00 EZETIMIBE (Zetia) 10 mg DAILY PO Last administered on 08/30/16 10:40; Admin Dose 10 MG; Start 08/30/16 at 09:00 Amiodarone HCl (Cordarone) 100 mg DAILY PO ; Start 08/31/16 at 09:00 GIA WILDER MD August 30, 2016 15:46
[2016-08-30 16:43] LABS: AADO2 Arterial 113.5 mmHg (7.0-24.0); Allen Test ACCEPTAB; Arterial Base Excess -1.1 mmol/L (-3.0-3); Arterial COHb 0.3 % (0.0-3.0); Arterial Fraction of Oxyhgb 95.7 % (93.0-99.0); Arterial HCO3 23.7 mmol/L (22.0-26.0); Arterial MetHb 0.4 % (0.0-1.5); Arterial Total Hemglobin 12.7 g/dl (12.0-18.0); Blood Gas PS 10; MODE VENT - CPAP
--- NOTE | 2016-08-30 18:28 | EN ---
Date/Time of Note Date/Time of Note DATE: 08/30/16 TIME: 18:27 Event Note Medicine Medicine Event Note xcover note called by RN 630pm pt requesting something for anxiety, states he takes ativan 0.5 mg PO TID at home 1 time dose rx'ed defer additional ativan to primary hospitalist Kvng SHUKLA hospitalist JEFFY FREITAS MD August 30, 2016 18:28
[2016-08-30] MEDS ORDERED: LORAZEPAM 0.5 MG TAB PO ONE ×2 (18:30→21:00)
--- NOTE | 2016-08-30 18:37 | CONS ---
DATE OF ADMISSION: 08/30/2016 DATE OF CONSULTATION: 08/30/2016 TYPE OF CONSULTATION: Nephrology. REASON FOR CONSULTATION: Acute kidney injury. PHYSICIAN REQUESTING CONSULTATION: Dr. Salvador HISTORY OF PRESENT ILLNESS: This is a 65-year-old male with a past medical history of chronic kidne y disease, stage IIIB/IV with the previous baseline creatinine around 2 mg/dL, history of ischemic cardiomyopathy with ejection fraction of 20%, history of refractory hypertension, history of bilater al renal artery stenosis, status post stent placement, history of dyslipidemia, history of flash pul monary edema secondary to refractory hypertension, felt to be due to pulmonary arterial stenosis, an d history of lung mass with possible neuroendocrine tumor who presents to [facility] with worsening shortness of breath. The patient has had multiple admissions to [facility] for flash pulmonary edema and refractory hypertension. The patient was most recently ad mitted approximately 1 week ago and was subsequently discharged. He now presents to the emergency r oom by EMS due to dyspnea and shortness of breath. The patient was noted to be obtunded. He was crouch bsequently intubated. He was initially noted to be hypertensive with systolic pressures in the 200s . Following intubation, the patient became hypotensive and was placed on pressor support. On admis tra, the patient had a chest x-ray which showed vascular congestion, interstitial prominence. A CT scan of the chest was also obtained which showed right lower lobe neoplasm, unchanged, cardiomegaly , emphysematous disease, and bibasilar consolidation. The patient, in the emergency room, was also given antibiotic therapy. His laboratory data drawn showed an initial potassium level of 7.0 with B UN of 53, creatinine 3.80. The patient was given Kayexalate therapy as well. In terms of the patient's renal history, the patient has longstanding history of CKD with previous b aseline creatinines around 2 to 2.5 mg/dL. The patient currently has a creatinine of 3.9 mg/dL. Th e patient, prior to this hospitalization, denied any recent NSAID use. No recent contrast exposure. No rashes. No frothy urine. PAST MEDICAL HISTORY: History of CKD, history of bilateral renal artery stenosis, history of cardio myopathy, history of coronary artery disease, history of peripheral vascular disease, history of fla sh pulmonary edema, history of paroxysmal and refractory hypertension, history of lung mass, history of coronary artery bypass graft. PAST SURGICAL HISTORY: Status post PCI, status post CABG, status post bilateral renal artery stent placement. SOCIAL HISTORY: Former smoker. FAMILY HISTORY: Noncontributory. MEDICATIONS: The patient's medications have been reviewed and reconciled. REVIEW OF SYSTEMS: A 14-point review of systems was conducted. Pertinent positives stated in HPI, otherwise negative. PHYSICAL EXAMINATION: VITAL SIGNS: Blood pressure is currently 166/58, respirations 24, pulse 82, temperature 98.3. HEENT: Head is normocephalic. Pupils are reactive to light. NECK: Supple. HEART: Regular rate. LUNGS: Show diminished breath sounds at the base. ABDOMEN: Soft, nontender to palpation. No rebound or guarding. EXTREMITIES: Negative for clubbing, cyanosis, no edema. DERMATOLOGIC: No rashes. MUSCULOSKELETAL: No joint effusions. NEUROLOGIC: No change in exam. MEDICATIONS: The patient's medications have been reviewed. LABORATORY DATA: Shows white count 22.3, hemoglobin 10.0, hematocrit 38.2, platelet count 77.8. So dium 143, potassium 4.8, chloride 115, BUN 60, creatinine 3.92. Troponin 0.260. IMAGING STUDIES: As stated in HPI. ASSESSMENT AND PLAN: This is a 65-year-old male who presents with 1. Nonoliguric acute kidney injury on top of chronic kidney disease, stage IV, with a previous base line creatinine of 2.5 mg/dL. Etiology of acute kidney injury is multifactorial secondary to hemody namics, possible acute tubular necrosis due to ischemic hypoperfusion and shock. The patient's init ial urinalysis was bland. No active sediment. The patient's FENa is greater than 1%. The patient has no significant proteinuria. Plan at this point would be to continue current treatment plan. We would continue pressor support to maintain MAP above 65. Given the patient's longstanding history of renal vascular hypertension, would recommend to maintain systolic pressures greater than 140 to e nsure adequate renal artery perfusion. Would otherwise continue supportive care, renally dose all m eds, continue IV antibiotics, continue diuretic therapy as tolerated, and monitor I's and O's closel y. Please also note, we will also order a renal arterial Doppler ultrasound to evaluate the patency of patient's bilateral renal arteries. 2. Hyperkalemia. Etiology was likely secondary to acute kidney injury on chronic kidney disease. The patient's potassium levels have normalized with medical management. We will continue to monitor closely. 3. Hypertensive emergency. Etiology again may be secondary to multifactorial causes including agit ation, stress, questionable pheochromocytoma, or paraganglioma. We will continue current medical ma nagement. Continue current blood pressure regimen. Monitor closely. 4. Acute hypoxemic respiratory failure. Etiology is secondary to flash pulmonary edema. The patie nt is status post intubation. Vent settings and ABGs have been reviewed. Continue to monitor. We will follow up with pulmonary. Consider possible weaning. 5. Anemia. We will monitor H and H levels. 6. Mineral bone disorder. We will monitor calcium and phosphorus levels. 7. Renal artery stenosis. The patient is status post bilateral stents. We will get a Doppler tanika l arterial ultrasound to evaluate renal arteries. We will monitor closely. 8. Acute systolic, diastolic heart failure. The patient had recurrent flash pulmonary edema. We w ill continue diuretic regimen. Follow up with cardiology for further recommendations. 9. Shock. Etiology may be secondary to medications versus sepsis. The patient currently is on pre ssor support and IV antibiotics. We will continue. We defer IV fluids in the setting of acute CHF. Continue to wean off pressors. Follow up cultures. 10. Lung mass. Etiology is unclear. The imaging findings are concerning for neoplasm. Further wo rkup for possible paraganglioma or neuroendocrine tumor was recommended to the patient's family alth ough they refused. We will order an octreotide scan once the patient is clinically stable. Would a lso consider a lung biopsy once the patient is more clinically stable. We will defer to primary tea m and pulmonary. 11. History of coronary artery disease, status post coronary artery bypass graft. Continue current medical management. 12. Elevated troponin, possibly non-ST elevation myocardial infarction type 2. Continue to monitor . 13. History of carotid stenosis status post CEA. Thank you, Dr. Salvador, for this interesting consult. It will be a pleasure to follow the patient w ith you throughout the hospital course. Dictated By: MARILYN HUFF DO NR/LUIS Conf#: [id number] DID#: [id number]
[2016-08-30] MEDS ORDERED: ATORVASTATIN 10 MG TAB PO SCH (21:00)
[2016-08-31] VITALS (24 sets, daily range): BP systolic 79–131; BP diastolic 44–78; PULSE 70–85; RESP 10–24
[2016-08-31 04:32] LABS: ADD SCAN DIFF NO
[2016-08-31 04:37] LABS: BASOPHIL # 0.1 10^3/ul (0.0-0.1); BASOPHILS % 0.4 % (0.0-2.0); EOSINOPHILS # 0.1 10^3/ul (0.0-0.5); EOSINOPHILS % 0.8 % (0.0-7.0); HEMATOCRIT 33.4 % (42.0-52.0); HEMOGLOBIN 10.5 g/dl (14.0-18.0); LYMPHOCYTES # 1.8 10^3/ul (0.8-2.9); LYMPHOCYTES % 12.8 % (15.0-51.0); MEAN CORPUSCULAR HEMOGLOBIN 28.8 pg (29.0-33.0); MEAN CORPUSCULAR HGB CONC 31.4 g/dl (32.0-37.0); MEAN CORPUSCULAR VOLUME 91.5 fl (82.0-101.0); MEAN PLATELET VOLUME 11.4 fl (7.4-10.4); MONOCYTE # 1.4 10^3/ul (0.3-0.9); MONOCYTES % 9.8 % (0.0-11.0); NEUTROPHIL # 10.4 10^3/ul (1.6-7.5); NEUTROPHILS % 75.5 % (39.0-77.0); PLATELET COUNT 369 10^3/UL (140-415); RED BLOOD COUNT 3.65 10^6/ul (4.70-6.10); WHITE BLOOD COUNT 13.8 10^3/ul (4.8-10.8)
[2016-08-31 05:28] LABS: CREATININE 3.76 mg/dl (0.61-1.24); MAGNESIUM 2.4 mg/dl (1.7-2.5); PHOSPHORUS 4.7 mg/dl (2.5-4.9)
[2016-08-31] MEDS: PIPER-TAZO 2.25 GM (PMX) 50 ML IVPB SCH ×3 (05:40→21:20)
[2016-08-31] MEDS: PANTOPRAZOLE 40 MG INJ IV SCH (05:40)
[2016-08-31] MEDS: HEPARIN 5,000 UNIT/0.5 ML VIAL SC SCH ×3 (05:46→21:21)
--- NOTE | 2016-08-31 07:41 | RADRPT ---
PROCEDURE: XR Chest. CLINICAL INDICATION: CHF TECHNIQUE: Single frontal view of the chest was obtained. COMPARISON: Chest x-ray from 08/30/2016 FINDINGS: Sternotomy wires, clips consistent with CABG, and a left-sided dual lead pacemaker are again noted. The cardiomediastinal silhouette is unchanged. The aortic arch is calcified. There is stable mild pulmonary vascular congestion. There is a stable right super hilar lung mass. Bibasilar alveolar infiltrates are somewhat less prominent. There is no significant pleural effusion or pneumothorax. IMPRESSION: Bibasilar alveolar infiltrates are somewhat less prominent. Otherwise, no significant interval change. RPTAT: EE Physician Dmitry Date Time Electronically viewed and signed by Physician Dmitry on 08/31/2016 07:41 /
[2016-08-31] MEDS ORDERED: FUROSEMIDE 40 MG INJ IV ONE (08:00)
--- NOTE | 2016-08-31 08:01 | CONS ---
Date/Time of Note Date/Time of Note DATE: 08/31/16 TIME: 07:56 Assessment/Plan Assessment/Plan Chief Complaint/Hosp Course Acute respiratory failure: Secondary to recurrent flash pulmonary edema and hypertensive emergency. Etiology remains unclear. He had bilateral renal artery stenosis which was thought to be the culprit but no improvement since stenting. He has a lung mass which he has so far been hesitant to evaluate and could be a neuroendocrine tumor. He also has a lesions of his ramus coronary artery which could cause ischemic MR potentially but it would be unusual in the setting of hypertension as it should cause hypotension. Shock: Initially hypertensive, then hypotensive from propofol. Now off pressors. BP is low likely due to stunned myocardium from flash pulm edema Acute on chronic renal failure: Cr most recently 2.2. On admission 3.8. He started taking lisinopril so may be the cause. Had a renal ultrasound last week which showed patent renal arteries but is being rechecked Hyperkalemia: up to 7.0 on admission, partially from acidemia, now resolved Acute on chronic systolic heart failure: EF 20%. Flash episodes as above. Still decompensated but improved Hypertensive emergency: etiology remains unclear as above. If no organic cause is found, there seems to be a strong anxiety component NSTEMI: Trops up to 0.3 in setting of renal failure and respiratory failure. No indication for cardiac cath at this time CAD s/p CABG/PCI: No chest pain. EKG abnormalities are likely due to hyperkalemia. Trend trops for now Bilateral renal artery stents Carotid stenosis s/p CEA Lung mass -lasix 40mg x 1 now. Will assess daily -ASA, plavix, lipitor, zetia -hold BP meds for now, expect it may take some time for BP to become elevated as likely has stunned myocardium from presenting events -consider repeating renal doppler to assess for artery patency Problems: Consultation Date/Type/Reason Admit Date/Time August 30, 2016 at 01:47 Initial Consult Date 08/30/16 Type of Consultation: Cardiology Referring Provider: SANJUANITA SPAULDING 24 HR Interval Summary Free Text/Dictation Extubated yesterday. Feels well. Frustrated about recurrence of his condition. Exam/Review of Systems Vital Signs Vitals Vital Signs Date Time Temp Pulse Resp B/P Pulse Ox O2 Delivery O2 Flow Rate FiO2 08/31/16 06:00 81 20 98/52 95 Nasal Cannula 2.0 08/31/16 04:00 99.0 08/30/16 15:40 35 Intake and Output 08/30/16 08/30/16 08/31/16 15:00 23:00 07:00 Intake Total 50 ml 185.76 ml 51.87 ml Output Total 1050 ml 1475 ml 560 ml Balance -1000 ml -1289.24 ml -508.13 ml Exam Constitutional: alert, oriented Psych: no complaints Head: normocephalic Neck: jvd (9cm) Respiratory: crackles/rales, No clear to auscultation Cardiovascular: regular rate and rhythm, No edema Gastrointestinal: non-tender, soft Neurological: nl mental status, nl speech Results Result Diagram: 08/31/16 03408/31/16 0340 Results 24 hrs Laboratory Tests Test 08/30/16 12:25 08/30/16 12:35 08/30/16 14:00 08/30/16 16:15 Troponin I 0.260 *H Sodium Level 143 Potassium Level 4.8 Chloride Level 115 H Carbon Dioxide Level 25 Anion Gap 8 Blood Urea Nitrogen 60 H Creatinine 3.92 H Glucose Level 136 Calcium Level 9.1 Urine Color LT. YELLOW Urine Clarity CLEAR Urine pH 5.5 Urine Specific [place] 1.015 Urine Ketones NEGATIVE Urine Nitrite NEGATIVE Urine Bilirubin NEGATIVE Urine Urobilinogen 0.2 E.U./dL Urine Leukocyte Esterase TRACE H Urine Microscopic RBC 0-2 Urine Microscopic WBC 2-5 Urine Hemoglobin NEGATIVE Urine Random Creatinine 33.61 Urine Random Sodium 98 H Urine Glucose NEGATIVE Urine Total Protein 11.0 Blood Gas Specimen Source Blood arterial Arterial Blood Date Drawn 08/30/2016 4:27:33 PM Arterial Blood pH (Temp corrected) 7.391 Arterial Blood pCO2 (Temp correct) 40.0 Arterial Blood pO2 (Temp corrected) 89.6 Arterial Blood HCO3 23.7 Arterial Blood Base Excess -1.1 Arterial Blood Oxygen Saturation 96.4 Aaron Test ACCEPTAB Arterial Blood Gas Puncture Site Right Radial Arterial Blood Carboxyhemoglobin 0.3 Arterial Blood Methemoglobin 0.4 Blood Gas A-a O2 Differential 113.5 H Oxyhemoglobin Percent 95.7 Total Hemoglobin 12.7 Blood Gas Temperature 37.0 Blood Gas Actual Respiration Rate 18 Blood Gas Modality VENT - CPAP FiO2 35.0 Blood Gas Low PEEP Setting 5.0 Blood Gas Pressure Support 10 Blood Gas Notified Whom AT Blood Gas Notified Time 08/30/2016 4:43:11 PM Test 08/30/16 18:20 08/31/16 03:40 Troponin I 0.283 *H White Blood Count 13.8 #H Red Blood Count 3.65 L Hemoglobin 10.5 L Hematocrit 33.4 L Mean Corpuscular Volume 91.5 Mean Corpuscular Hemoglobin 28.8 L Mean Corpuscular Hemoglobin Concent 31.4 L Red Cell Distribution Width 13.0 Platelet Count 369 # Mean Platelet Volume 11.4 H Neutrophils % 75.5 Lymphocytes % 12.8 L Monocytes % 9.8 Eosinophils % 0.8 Basophils % 0.4 Nucleated Red Blood Cells % 0.0 Neutrophils # 10.4 H Lymphocytes # 1.8 Monocytes # 1.4 H Eosinophils # 0.1 Basophils # 0.1 Nucleated Red Blood Cells # 0.0 Sodium Level 141 Potassium Level 4.0 Chloride Level 109 Carbon Dioxide Level 24 Anion Gap 12 Blood Urea Nitrogen 62 H Creatinine 3.76 H Glucose Level 93 # Calcium Level 9.0 Phosphorus Level 4.7 Magnesium Level 2.4 Medications Medications Current Medications Propofol (Diprivan) 100 ml @ 2.045 mls/ hr TITRATE IV Last administered on 00:22; Admin Dose 2.045 MLS/HR; Start 08/30/16 at 00:00 Pantoprazole (Protonix Iv) 40 mg DAILY@06 IV Last administered on 08/31/16 05: 40; Admin Dose 40 MG; Start 08/30/16 at 06:00 Heparin Sodium (Porcine) (Heparin (5000 Units/0.5 ml)) 5,000 unit Q8 SC Last administered on 08/31/16 05:46; Admin Dose 5,000 UNIT; Start 08/30/16 at 02:01 Hydralazine HCl (Apresoline) 10 mg Q4H PRN IV ELEVATED blood pressure; Start at 02:00 Miscellaneous Information 1 ea NOTE XX ; Start 08/30/16 at 02:30 Glucose (Glutose) 15 gm Q15M PRN PO DECREASED GLUCOSE; Start 08/30/16 at 02:30 Glucose (Glutose) 22.5 gm Q15M PRN PO DECREASED GLUCOSE; Start 08/30/16 at 02: 30 Dextrose (D50w Syringe) 25 ml Q15M PRN IV DECREASED GLUCOSE; Start 08/30/16 at 02:30 Dextrose (D50w Syringe) 50 ml Q15M PRN IV DECREASED GLUCOSE; Start 08/30/16 at 02:30 Glucagon (Glucagen) 1 mg Q15M PRN IM DECREASED GLUCOSE; Start 08/30/16 at 02:30 Glucose (Glutose) 15 gm Q15M PRN BUCCAL DECREASED GLUCOSE; Start 08/30/16 at 02 :30 Acetaminophen 650 mg [address] PAIN LEVEL 1-3 OR FEVER; Start 08/30/16 at 03:00 Piperacillin Sod/ Tazobactam Sod 50 ml @ 100 mls/hr Q8 IVPB Last administered on 08/31/16 05:40; Admin Dose 100 MLS/HR; Start 08/30/16 at 07:30 Phenylephrine HCl 40 mg/Dextrose 500 ml @ 75 mls/hr TITRATE IV ; Start at 09:00 Midazolam HCl 50 ml @ 2 mls/hr TITRATE IV Last administered on 08/30/16 05:11 ; Admin Dose 2 MLS/HR; Start 08/30/16 at 04:52 Phenylephrine HCl 250 ml @ 75 mls/hr TITRATE IV Last administered on 05:10; Admin Dose 75 MLS/HR; Start 08/30/16 at 04:53 Norepinephrine (Levophed) 250 ml @ 1.875 mls/ hr TITRATE IV Last administered on 08/30/16 05:29; Admin Dose 9.375 MLS/HR; Start 08/30/16 at 05:30 Clopidogrel Bisulfate (plaVIX) 75 mg DAILY PO Last administered on 08/30/16 10 :40; Admin Dose 75 MG; Start 08/30/16 at 09:00 EZETIMIBE (Zetia) 10 mg DAILY PO Last administered on 08/30/16 10:40; Admin Dose 10 MG; Start 08/30/16 at 09:00 Amiodarone HCl (Cordarone) 100 mg DAILY PO ; Start 08/31/16 at 09:00 Atorvastatin Calcium (Lipitor) 80 mg QHS PO ; Start 08/31/16 at 21:00 Aspirin (Aspirin) 81 mg DAILY PO ; Start 08/31/16 at 09:00 EMILY TREVIÑO Aug 31, 2016 08:01
--- NOTE | 2016-08-31 09:50 | PN ---
DATE: 08/31/2016 SUBJECTIVE: The patient has clinically improved, currently been extubated. No other acute events o vernight. No hemoptysis, hematemesis or hematochezia. The patient's urinary output has been adequat e. OBJECTIVE: VITAL SIGNS: Blood pressure is 98/52, respiratory rate 20, pulse 81, temperature 99.0. I's and O's : The patient had 280 in with 3 L out. HEENT: Head is normocephalic. NECK: Supple. HEART: Regular rate. LUNGS: Show diminished breath sounds at the bases. ABDOMEN: Soft, nontender to palpation. No rebound or guarding. EXTREMITIES: Negative for clubbing, cyanosis. No edema. DERMATOLOGIC: No rashes. MUSCULOSKELETAL: No joint effusions. NEUROLOGIC: No change in exam. MEDICATIONS: The patient's medications have been reviewed. LABORATORY DATA: Shows a white count 13.8, hemoglobin 10.5, platelet count 369. Sodium 141, potass ium 4.0, chloride 109, BUN 62, creatinine 3.76. Troponin is 0.283. Blood cultures negative x2. ASSESSMENT AND PLAN: 1. Nonoliguric acute kidney injury on top of chronic kidney disease stage IV with previous baseline creatinine between 2 to 2.5 mg/dL. Etiology of current acute kidney injury is secondary to hemodyn amics, possible ANNE inhibitor effect, possible tubular injury. The patient's urinalysis is bland, n onactive. The patient's renal function has been improving with supportive care. At this point, we will continue current treatment plan. Continue to renally dose all meds. Would recommend to mainta in MAP above 65 to enhance renal arterial perfusion. Would hold hypertensive medications at this ti me as the patient's is hypotensive and would continue to hold ANNE inhibitor. We will monitor renal function closely. 2. Hyperkalemia. Etiology secondary to chronic kidney disease, acute kidney injury. The patient p otassium level has normalized. Continue to a renal diet. 3. Hypertensive emergency. Etiology is possibly multifactorial secondary to anxiety and agitation. The possibility of a secondary cause such as a pheochromocytoma and/or paraganglioma is unclear. Workup has been ongoing. Plan is to order octreotide scan once the patient is clinically stable. A t this point, as the patient is hypotensive, we will hold blood pressure medications and monitor. 4. Hypotension. Etiology may be secondary to stunned myocardium, non-ST elevation myocardial infar ction, recent blood pressure medications. We will continue to monitor closely. 5. Acute hypoxemic respiratory failure. Etiology secondary to flash pulmonary edema. The patient is currently status post extubation and stable on nasal cannula. Continue to monitor. 6. Acute congestive heart failure exacerbation, flash pulmonary edema. Etiology is likely triggere d by hypertensive emergency. As stated above, workup is ongoing. We will continue diuretic regimen to maintain euvolemic status. Followup with cardiology for recommendations. 7. Renal artery stenosis. The patient is status post bilateral stents. A Doppler renal arterial ultrasound is pending to evaluate renal arterial flow. 8. Mineral bone disorder. Continue to monitor calcium and phosphorus levels. 9. Anemia. Continue to monitor hemoglobin and hematocrit levels. 10. Status post shock. Etiology may be secondary to medications, questionable sepsis. The patient is currently on pressor support. He is on IV antibiotics. We will continue to monitor. 11. Lung mass. Etiology is unclear, concerning for possible neoplasm. Further workup for possible paraganglioma and/or neuroendocrine tumor was recommended, but the patient's family refused. We michael l plan for an MIBG scan once the patient is clinically stable. Would also consider lung biopsy of u nderlying mass, will defer to primary team and pulmonary. 12. History of coronary artery disease, status post coronary artery bypass graft. Continue medial management. 13. Elevated troponin, possible non-ST elevation myocardial infarction. Continue current treatment plan. 14. History of carotid stenosis, status post carotid endarterectomy. Dictated By: MARILYN SANTOS/LUIS Conf#: [id number] DID#: [id number]
[2016-08-31] MEDS: ASPIRIN 81 MG TAB PO SCH (09:51)
[2016-08-31] MEDS: AMIODARONE 200 MG TAB PO SCH (09:52)
[2016-08-31] MEDS: EZETIMIBE 10 MG TAB PO SCH (09:52)
[2016-08-31] MEDS: CLOPIDOGREL 75 MG TAB PO SCH (09:52)
--- NOTE | 2016-08-31 09:59 | RADRPT ---
PROCEDURE: US Renal Artery Duplex CLINICAL INDICATION: renal artery stenosis TECHNIQUE: Pulse wave and color duplex Doppler ultrasound of the aorta and the renal arteries was done. COMPARISON: Duplex sonogram of the renal arteries from 08/21/[address] abdomen/pelvis from 08/22 FINDINGS: The right kidney measures 10.1 cm in length and the left kidney 9.0 cm in length. Bilaterally, ther e is no evidence of hydronephrosis, cysts, mass or calcifications. Peak systolic velocity within the aorta was 46 cm/sec. Peak systolic velocities within the right renal artery were as follows: Proximal -136 cm/sec Mid - 92 cm/sec Distal -107 cm/sec Peak systolic velocities within the left renal artery were as follows: Proximal -64 cm/sec Mid - 62 cm/sec Distal -61 cm/sec Resistive indices in the arcuate and interlobar arteries of the right kidney are elevated, ranging f rom 0.82 to 0.90. Resistive indices in the arcuate and interlobar arteries of the left kidney are mildly elevated, ran ging from 0.78 to 0.84. Right Renal-Aortic ratio: 3.8 Left Renal-Aortic ratio: 1.4 IMPRESSION: Elevated right renal - aortic ratio of 3.8 suggests hemodynamically significant stenosis in the prox imal to mid right renal artery. A stent is noted in the proximal right renal artery on the recent C T study, possibly indicating intrastent stenosis. A CTA or MRA study can be obtained for further goldy luation, if indicated. Resistive indices in the arcuate and interlobar arteries are elevated in the right greater than left kidneys, suggesting an element of medical renal disease. correlation with BUN and creatinine levels is recommended. RPTAT: EE Kory Domingo Physician Date Time Electronically viewed and signed by Kory Domingo Physician on 08/31/2016 09:59 /
--- NOTE | 2016-08-31 11:08 | CONS ---
Date/Time of Note Date/Time of Note DATE: 08/31/16 TIME: 10:57 Consult Date/Type/Reason Admit Date/Time August 30, 2016 at 01:47 Initial Consult Date 08/30/16 Type of Consultation: Pulmonary Ordering Provider: SANJUANITA SPAULDING Subjective Patient extubated yesterday awake alert comfortable Objective Vital Signs Date Time Temp Pulse Resp B/P Pulse Ox O2 Delivery O2 Flow Rate FiO2 08/31/16 10:00 79 24 125/58 94 Room Air 08/31/16 09:00 2.0 08/31/16 08:00 98.9 08/30/16 15:40 35 Intake and Output 08/30/16 08/30/16 08/31/16 15:00 23:00 07:00 Intake Total 50 ml 185.76 ml 51.87 ml Output Total 1050 ml 1475 ml 610 ml Balance -1000 ml -1289.24 ml -558.13 ml Exam GENERAL: VITAL SIGNS: per chart NECK: Supple. No JVD or lymphadenopathy. CARDIAC EXAM: S1, S2. No added sounds or murmurs. CHEST: clear bilaterally, No added sounds, rales or wheezes ABDOMEN: Soft, nontender. No guarding or rebound. EXTREMITIES: No cyanosis, clubbing or edema. NEUROLOGIC: Generalized weakness. No focal deficits. Results/Medications Result Diagram: 08/31/16 0340 08/31/16 [address] chest Right upper lobe mass Underlying emphysema Laboratory Tests Test 08/30/16 12:25 08/30/16 12:35 08/30/16 14:00 08/30/16 16:15 Troponin I 0.260 *H Sodium Level 143 Potassium Level 4.8 Chloride Level 115 H Carbon Dioxide Level 25 Anion Gap 8 Blood Urea Nitrogen 60 H Creatinine 3.92 H Glucose Level 136 Calcium Level 9.1 Urine Color LT. YELLOW Urine Clarity CLEAR Urine pH 5.5 Urine Specific [place] 1.015 Urine Ketones NEGATIVE Urine Nitrite NEGATIVE Urine Bilirubin NEGATIVE Urine Urobilinogen 0.2 E.U./dL Urine Leukocyte Esterase TRACE H Urine Microscopic RBC 0-2 Urine Microscopic WBC 2-5 Urine Hemoglobin NEGATIVE Urine Random Creatinine 33.61 Urine Random Sodium 98 H Urine Glucose NEGATIVE Urine Total Protein 11.0 Blood Gas Specimen Source Blood arterial Arterial Blood Date Drawn 08/30/2016 4:27:33 PM Arterial Blood pH (Temp corrected) 7.391 Arterial Blood pCO2 (Temp correct) 40.0 Arterial Blood pO2 (Temp corrected) 89.6 Arterial Blood HCO3 23.7 Arterial Blood Base Excess -1.1 Arterial Blood Oxygen Saturation 96.4 Aaron Test ACCEPTAB Arterial Blood Gas Puncture Site Right Radial Arterial Blood Carboxyhemoglobin 0.3 Arterial Blood Methemoglobin 0.4 Blood Gas A-a O2 Differential 113.5 H Oxyhemoglobin Percent 95.7 Total Hemoglobin 12.7 Blood Gas Temperature 37.0 Blood Gas Actual Respiration Rate 18 Blood Gas Modality VENT - CPAP FiO2 35.0 Blood Gas Low PEEP Setting 5.0 Blood Gas Pressure Support 10 Blood Gas Notified Whom AT Blood Gas Notified Time 08/30/2016 4:43:11 PM Test 08/30/16 18:20 08/31/16 03:40 Troponin I 0.283 *H White Blood Count 13.8 #H Red Blood Count 3.65 L Hemoglobin 10.5 L Hematocrit 33.4 L Mean Corpuscular Volume 91.5 Mean Corpuscular Hemoglobin 28.8 L Mean Corpuscular Hemoglobin Concent 31.4 L Red Cell Distribution Width 13.0 Platelet Count 369 # Mean Platelet Volume 11.4 H Neutrophils % 75.5 Lymphocytes % 12.8 L Monocytes % 9.8 Eosinophils % 0.8 Basophils % 0.4 Nucleated Red Blood Cells % 0.0 Neutrophils # 10.4 H Lymphocytes # 1.8 Monocytes # 1.4 H Eosinophils # 0.1 Basophils # 0.1 Nucleated Red Blood Cells # 0.0 Sodium Level 141 Potassium Level 4.0 Chloride Level 109 Carbon Dioxide Level 24 Anion Gap 12 Blood Urea Nitrogen 62 H Creatinine 3.76 H Glucose Level 93 # Calcium Level 9.0 Phosphorus Level 4.7 Magnesium Level 2.4 Medications Current Medications Propofol (Diprivan) 100 ml @ 2.045 mls/ hr TITRATE IV Last administered on 00:22; Admin Dose 2.045 MLS/HR; Start 08/30/16 at 00:00 Pantoprazole (Protonix Iv) 40 mg DAILY@06 IV Last administered on 08/31/16 05: 40; Admin Dose 40 MG; Start 08/30/16 at 06:00 Heparin Sodium (Porcine) (Heparin (5000 Units/0.5 ml)) 5,000 unit Q8 SC Last administered on 08/31/16 05:46; Admin Dose 5,000 UNIT; Start 08/30/16 at 02:01 Hydralazine HCl (Apresoline) 10 mg Q4H PRN IV ELEVATED blood pressure; Start at 02:00 Miscellaneous Information 1 ea NOTE XX ; Start 08/30/16 at 02:30 Glucose (Glutose) 15 gm Q15M PRN PO DECREASED GLUCOSE; Start 08/30/16 at 02:30 Glucose (Glutose) 22.5 gm Q15M PRN PO DECREASED GLUCOSE; Start 08/30/16 at 02: 30 Dextrose (D50w Syringe) 25 ml Q15M PRN IV DECREASED GLUCOSE; Start 08/30/16 at 02:30 Dextrose (D50w Syringe) 50 ml Q15M PRN IV DECREASED GLUCOSE; Start 08/30/16 at 02:30 Glucagon (Glucagen) 1 mg Q15M PRN IM DECREASED GLUCOSE; Start 08/30/16 at 02:30 Glucose (Glutose) 15 gm Q15M PRN BUCCAL DECREASED GLUCOSE; Start 08/30/16 at 02 :30 Acetaminophen 650 mg 650 mg Q4H PRN [place] PAIN LEVEL 1-3 OR FEVER; Start 08/30/16 at 03:00 Piperacillin Sod/ Tazobactam Sod 50 ml @ 100 mls/hr Q8 IVPB Last administered on 08/31/16 05:40; Admin Dose 100 MLS/HR; Start 08/30/16 at 07:30 Phenylephrine HCl 40 mg/Dextrose 500 ml @ 75 mls/hr TITRATE IV ; Start at 09:00 Midazolam HCl 50 ml @ 2 mls/hr TITRATE IV Last administered on 08/30/16 05:11 ; Admin Dose 2 MLS/HR; Start 08/30/16 at 04:52 Phenylephrine HCl 250 ml @ 75 mls/hr TITRATE IV Last administered on 05:10; Admin Dose 75 MLS/HR; Start 08/30/16 at 04:53 Norepinephrine (Levophed) 250 ml @ 1.875 mls/ hr TITRATE IV Last administered on 08/30/16 05:29; Admin Dose 9.375 MLS/HR; Start 08/30/16 at 05:30 Clopidogrel Bisulfate (plaVIX) 75 mg DAILY PO Last administered on 08/31/16 09: 52; Admin Dose 75 MG; Start 08/30/16 at 09:00 EZETIMIBE (Zetia) 10 mg DAILY PO Last administered on 08/31/16 09:52; Admin Dose 10 MG; Start 08/30/16 at 09:00 Amiodarone HCl (Cordarone) 100 mg DAILY PO Last administered on 08/31/16 09:52 ; Admin Dose 100 MG; Start 08/31/16 at 09:00 Atorvastatin Calcium (Lipitor) 80 mg QHS PO ; Start 08/31/16 at 21:00 Aspirin (Aspirin) 81 mg DAILY PO Last administered on 08/31/16 09:51; Admin Dose 81 MG; Start 08/31/16 at 09:00 Assessment/Plan Chief Complaint/Hosp Course Assessment 1. Hypoxemic and hypercapnic respiratory failure 2. Renal insufficiency 3. COPD 4. Hx of lung mass diagnosed 2 yrs ago. Patient refused biopsy or treatment. 5. Hx renal artery stenting. Plan 1. Continue o2 2. BDs 3. OOB 4. transfer to tele. 5. Discussed with family. Patient declining biopsy and treatment for lung mass. Problems: MARY BARKER MD, [facility] Aug 31, 2016 11:07
--- NOTE | 2016-08-31 11:31 | PN ---
Date/Time of Note Date/Time of Note DATE: 08/31/16 TIME: 11:27 Assessment/Plan VTE Prophylaxis VTE Prophylaxis Intervention: SCD's Lines/Catheters [facility]from [facility] Central Line Central line still needed: Yes Urinary Cath still in place: Yes Reason Cath still needed: other (indicate) Assessment/Plan Chief Complaint/Hosp Course Assessment and plan #1 acute respiratory failure failure: Likely secondary to flash pulmonary edema versus CHF exacerbation vs pneumonia. Status post IV Lasix in the ED. Continue current home medications. Monitor I's and O's. [employer] has been consulted Extubated on 08/30/2016, continue Lasix and breathing treatment #2 elevated troponin: Patient is asymptomatic without any chest pain Likely secondary to acute on chronic renal insufficiency and CHF exacerbation Follow-up cardiology recommendations #3: Hyperkalemia: Resolved Likely secondary to acute renal insufficiency and medication induced hyperkalemia Nephrology has been consulted, #4 hypertensive emergency: Better controlled We will continue to monitor blood pressures. Possible underlying component of anxiety. Continue medical management #5 lactic acidosis: Likely secondary to suspected pneumonia Continue vancomycin and Zosyn #6 Renal artery stenosis: Status post bilateral stents. We also continue to monitor the patient's blood pressure and consult nephrology for any further recommendations. 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 Will continue current home medications right now will provide IV diuresis. cardiology Consulted #8 Acute on chronic kidney disease: Patient is nonoliguric. Likely medication induced renal insufficiency, creatinine is increased from 3.8 from the previous of 2.25. Nephrology has been consulted Caution with nephrotoxic medications #9 Prediabetes: On review of labs patient has an A1c of 6.3 in May. Continue to monitor #10 Large right perihilar, lobe lung mass Chronic, patient has refused biopsy in the past. At this time as per patient 's son patient continues to refuse biopsy. Pulmonology has been consulted, will continue to monitor DVT and GI prophylaxis: SCDs, Protonix Further treatment strategy will be implemented as per the clinical course Problems: Subjective 24 Hr Interval Summary Free Text/Dictation Patient has been extubated on Denies of any chest pain Minimal shortness of breath On pressors Via Levophed Tolerating oral intake Exam/Review of Systems Vital Signs Vitals Vital Signs Date Time Temp Pulse Resp B/P Pulse Ox O2 Delivery O2 Flow Rate FiO2 08/31/16 10:00 79 24 125/58 94 Room Air 08/31/16 09:00 2.0 08/31/16 08:00 98.9 08/30/16 15:40 35 Intake and Output 08/30/16 08/30/16 08/31/16 14:59 22:59 06:59 Intake Total 50 ml 183.96 ml 53.67 ml Output Total 1050 ml 1325 ml 710 ml Balance -1000 ml -1141.04 ml -656.33 ml Exam General: The patient is well-developed, Not in acute distress. HEENT: Atraumatic, normocephalic. The pupils are equal and round . Neck: Supple with full range of motion. Chest: Normal expansion of the thorax during inspiration Lungs: Decreased breath sounds bilateral lower lung field Heart: Normal S1-S2, Regular rhythm and rate. Abdomen: Soft , nontender, nondistended , bowel sounds are present. Extremities: Normal to inspection, no edema no cyanosis Neurologic: Normal mental status,The patient is awake, alert and oriented . Results Result Diagram: 08/31/16 0340 08/31/16 0340 Results 24 hrs Laboratory Tests Test 08/30/16 12:25 08/30/16 12:35 08/30/16 14:00 08/30/16 16:15 Troponin I 0.260 *H Sodium Level 143 Potassium Level 4.8 Chloride Level 115 H Carbon Dioxide Level 25 Anion Gap 8 Blood Urea Nitrogen 60 H Creatinine 3.92 H Glucose Level 136 Calcium Level 9.1 Urine Color LT. YELLOW Urine Clarity CLEAR Urine pH 5.5 Urine Specific [place] 1.015 Urine Ketones NEGATIVE Urine Nitrite NEGATIVE Urine Bilirubin NEGATIVE Urine Urobilinogen 0.2 E.U./dL Urine Leukocyte Esterase TRACE H Urine Microscopic RBC 0-2 Urine Microscopic WBC 2-5 Urine Hemoglobin NEGATIVE Urine Random Creatinine 33.61 Urine Random Sodium 98 H Urine Glucose NEGATIVE Urine Total Protein 11.0 Blood Gas Specimen Source Blood arterial Arterial Blood Date Drawn 08/30/2016 4:27:33 PM Arterial Blood pH (Temp corrected) 7.391 Arterial Blood pCO2 (Temp correct) 40.0 Arterial Blood pO2 (Temp corrected) 89.6 Arterial Blood HCO3 23.7 Arterial Blood Base Excess -1.1 Arterial Blood Oxygen Saturation 96.4 Aaron Test ACCEPTAB Arterial Blood Gas Puncture Site Right Radial Arterial Blood Carboxyhemoglobin 0.3 Arterial Blood Methemoglobin 0.4 Blood Gas A-a O2 Differential 113.5 H Oxyhemoglobin Percent 95.7 Total Hemoglobin 12.7 Blood Gas Temperature 37.0 Blood Gas Actual Respiration Rate 18 Blood Gas Modality VENT - CPAP FiO2 35.0 Blood Gas Low PEEP Setting 5.0 Blood Gas Pressure Support 10 Blood Gas Notified Whom AT Blood Gas Notified Time 08/30/2016 4:43:11 PM Test 08/30/16 18:20 08/31/16 03:40 Troponin I 0.283 *H White Blood Count 13.8 #H Red Blood Count 3.65 L Hemoglobin 10.5 L Hematocrit 33.4 L Mean Corpuscular Volume 91.5 Mean Corpuscular Hemoglobin 28.8 L Mean Corpuscular Hemoglobin Concent 31.4 L Red Cell Distribution Width 13.0 Platelet Count 369 # Mean Platelet Volume 11.4 H Neutrophils % 75.5 Lymphocytes % 12.8 L Monocytes % 9.8 Eosinophils % 0.8 Basophils % 0.4 Nucleated Red Blood Cells % 0.0 Neutrophils # 10.4 H Lymphocytes # 1.8 Monocytes # 1.4 H Eosinophils # 0.1 Basophils # 0.1 Nucleated Red Blood Cells # 0.0 Sodium Level 141 Potassium Level 4.0 Chloride Level 109 Carbon Dioxide Level 24 Anion Gap 12 Blood Urea Nitrogen 62 H Creatinine 3.76 H Glucose Level 93 # Calcium Level 9.0 Phosphorus Level 4.7 Magnesium Level 2.4 Medications Medications Current Medications Propofol (Diprivan) 100 ml @ 2.045 mls/ hr TITRATE IV Last administered on 00:22; Admin Dose 2.045 MLS/HR; Start 08/30/16 at 00:00 Pantoprazole (Protonix Iv) 40 mg DAILY@06 IV Last administered on 08/31/16 05: 40; Admin Dose 40 MG; Start 08/30/16 at 06:00 Heparin Sodium (Porcine) (Heparin (5000 Units/0.5 ml)) 5,000 unit Q8 SC Last administered on 08/31/16 05:46; Admin Dose 5,000 UNIT; Start 08/30/16 at 02:01 Hydralazine HCl (Apresoline) 10 mg Q4H PRN IV ELEVATED blood pressure; Start at 02:00 Miscellaneous Information 1 ea NOTE XX ; Start 08/30/16 at 02:30 Glucose (Glutose) 15 gm Q15M PRN PO DECREASED GLUCOSE; Start 08/30/16 at 02:30 Glucose (Glutose) 22.5 gm Q15M PRN PO DECREASED GLUCOSE; Start 08/30/16 at 02: 30 Dextrose (D50w Syringe) 25 ml Q15M PRN IV DECREASED GLUCOSE; Start 08/30/16 at 02:30 Dextrose (D50w Syringe) 50 ml Q15M PRN IV DECREASED GLUCOSE; Start 08/30/16 at 02:30 Glucagon (Glucagen) 1 mg Q15M PRN IM DECREASED GLUCOSE; Start 08/30/16 at 02:30 Glucose (Glutose) 15 gm Q15M PRN BUCCAL DECREASED GLUCOSE; Start 08/30/16 at 02 :30 Acetaminophen 650 mg 650 mg Q4H PRN [place] PAIN LEVEL 1-3 OR FEVER; Start 08/30/16 at 03:00 Piperacillin Sod/ Tazobactam Sod 50 ml @ 100 mls/hr Q8 IVPB Last administered on 08/31/16 05:40; Admin Dose 100 MLS/HR; Start 08/30/16 at 07:30 Phenylephrine HCl 40 mg/Dextrose 500 ml @ 75 mls/hr TITRATE IV ; Start at 09:00 Midazolam HCl 50 ml @ 2 mls/hr TITRATE IV Last administered on 08/30/16 05:11 ; Admin Dose 2 MLS/HR; Start 08/30/16 at 04:52 Phenylephrine HCl 250 ml @ 75 mls/hr TITRATE IV Last administered on 05:10; Admin Dose 75 MLS/HR; Start 08/30/16 at 04:53 Norepinephrine (Levophed) 250 ml @ 1.875 mls/ hr TITRATE IV Last administered on 08/30/16 05:29; Admin Dose 9.375 MLS/HR; Start 08/30/16 at 05:30 Clopidogrel Bisulfate (plaVIX) 75 mg DAILY PO Last administered on 08/31/16 09: 52; Admin Dose 75 MG; Start 08/30/16 at 09:00 EZETIMIBE (Zetia) 10 mg DAILY PO Last administered on 08/31/16 09:52; Admin Dose 10 MG; Start 08/30/16 at 09:00 Amiodarone HCl (Cordarone) 100 mg DAILY PO Last administered on 08/31/16 09:52 ; Admin Dose 100 MG; Start 08/31/16 at 09:00 Atorvastatin Calcium (Lipitor) 80 mg QHS PO ; Start 08/31/16 at 21:00 Aspirin (Aspirin) 81 mg DAILY PO Last administered on 08/31/16 09:51; Admin Dose 81 MG; Start 08/31/16 at 09:00 GIA WILDER MD Aug 31, 2016 11:31
[2016-08-31] MEDS: ATORVASTATIN 10 MG TAB PO SCH (21:19)
[2016-08-31] MEDS ORDERED: ZOLPIDEM 5 MG TAB PO PRN (23:30)
[2016-09-01] VITALS (10 sets, daily range): BP systolic 109–153; BP diastolic 56–70; PULSE 74–103; RESP 18–20
[2016-09-01] MEDS: HEPARIN 5,000 UNIT/0.5 ML VIAL SC SCH ×3 (05:01→22:15)
[2016-09-01] MEDS: PANTOPRAZOLE 40 MG INJ IV SCH (05:01)
[2016-09-01 07:27] LABS: ADD SCAN DIFF NO
[2016-09-01 07:28] LABS: BASOPHIL # 0.1 10^3/ul (0.0-0.1); BASOPHILS % 0.5 % (0.0-2.0); EOSINOPHILS # 0.3 10^3/ul (0.0-0.5); EOSINOPHILS % 1.9 % (0.0-7.0); HEMATOCRIT 34.3 % (42.0-52.0); HEMOGLOBIN 10.9 g/dl (14.0-18.0); LYMPHOCYTES # 1.6 10^3/ul (0.8-2.9); LYMPHOCYTES % 11.6 % (15.0-51.0); MEAN CORPUSCULAR HEMOGLOBIN 28.2 pg (29.0-33.0); MEAN CORPUSCULAR HGB CONC 31.8 g/dl (32.0-37.0); MEAN CORPUSCULAR VOLUME 88.9 fl (82.0-101.0); MEAN PLATELET VOLUME 11.5 fl (7.4-10.4); MONOCYTE # 1.4 10^3/ul (0.3-0.9); MONOCYTES % 9.9 % (0.0-11.0); NEUTROPHIL # 10.3 10^3/ul (1.6-7.5); NEUTROPHILS % 75.4 % (39.0-77.0); PLATELET COUNT 399 10^3/UL (140-415); RED BLOOD COUNT 3.86 10^6/ul (4.70-6.10); RED CELL DISTRIBUTION WIDTH 12.9 % (11.5-14.5); WHITE BLOOD COUNT 13.6 10^3/ul (4.8-10.8)
[2016-09-01 07:51] LABS: CALCIUM 9.3 mg/dl (8.4-10.2); CREATININE 3.53 mg/dl (0.61-1.24); MAGNESIUM 2.4 mg/dl (1.7-2.5); PHOSPHORUS 3.5 mg/dl (2.5-4.9); POTASSIUM 3.7 mmol/L (3.5-5.1)
[2016-09-01] MEDS: CLOPIDOGREL 75 MG TAB PO SCH (08:32)
[2016-09-01] MEDS: ASPIRIN 81 MG TAB PO SCH (08:32)
[2016-09-01] MEDS: PIPER-TAZO 2.25 GM (PMX) 50 ML IVPB SCH ×3 (08:32→22:06)
[2016-09-01] MEDS: EZETIMIBE 10 MG TAB PO SCH (08:32)
[2016-09-01] MEDS: AMIODARONE 200 MG TAB PO SCH (08:33)
--- NOTE | 2016-09-01 10:29 | PN ---
DATE: 09/01/2016 SUBJECTIVE: The patient was transferred from intensive care unit to telemetry. The patient is clin ically stable. Blood pressures have been well controlled. No acute events noted. OBJECTIVE: VITAL SIGNS: Blood pressure is 125/60, respiration 18, pulse 97, temperature 98.1. HEENT: Head is normocephalic. NECK: Supple. HEART: Regular rate. LUNGS: Show diminished breath sounds at base. ABDOMEN: Soft, nontender to palpation without rebound or guarding. EXTREMITIES: Negative for clubbing, cyanosis, no edema. DERMATOLOGIC: No rashes. MUSCULOSKELETAL: No joint effusions. NEUROLOGIC: No change in exam. MEDICATIONS: The patient's medications have been reviewed. LABORATORY DATA: Showed sodium 144, potassium 3.7, chloride 107, BUN 59, creatinine 3.53. White co unt 13.6, hemoglobin 10.9, hematocrit 34.3, platelet count 399. IMAGING: The patient's renal arterial study shows a stent in the proximal right renal artery on CT, possibly intrastent stenosis. The patient was noted to have elevated right renal ____ indices. ASSESSMENT AND PLAN: 1. Nonoliguric acute kidney injury on top of chronic kidney disease, stage IV, with a previous base line creatinine of 2 to 2.5 mg/dL. Etiology of acute kidney injury is secondary to hemodynamics, po ssible tubular injury. Possible renal artery stenosis, in-stent thrombosis, is also a contributing factor. The patient's renal function, however, has been improving. We will continue current treatm ent plan, supportive care, renally dose all meds. 2. Bilateral renal artery stenosis. The patient is status post stenting. An arterial ultrasound s uggested possible intrastent stenosis of the right renal artery. We will place a vascular surgery c onsult with ____ for evaluation and continue to monitor closely. 3. Hypertensive urgency. Etiology is possibly multifactorial, secondary to anxiety and agitation. Secondary causes such as a paraganglioma or pheochromocytoma is being considered. Plan is to order an MIBG scan if cleared by Radiology. We will continue to monitor. Currently, the patient is off blood pressure medications. We will expect to reintroduce blood pressure medications as the patient becomes more hypertensive. 4. Acute hypoxemic respiratory failure secondary to flash pulmonary edema. The patient is currentl y stable. Continue low-dose diuretic therapy and monitor. 5. Acute congestive heart failure exacerbation secondary to flash pulmonary edema. Etiology, is li humble hypertensive urgency crisis. At this point, the patient appears euvolemic. Continue low-dose diuretic therapy. Continue to monitor. 6. Mineral bone disorder. Monitor calcium and phosphorus levels. 7. Anemia. Monitor H and H levels. 8. Shock. The patient is currently on IV antibiotics. Continue to monitor. 9. Lung mass. Etiology is unclear. Further workup has been deferred, per family. They have refus ed biopsy in the past. We will continue to monitor. 10. History of coronary artery disease, status post coronary artery bypass graft. 11. Elevated troponin, possible non-ST elevation myocardial infarction. Continue medical managemen t. 12. History of carotid stenosis status post endarterectomy. Dictated By: MARILYN SANTOS/LUIS Conf#: [id number] DID#: [id number]
--- NOTE | 2016-09-01 10:52 | PN ---
Date/Time of Note Date/Time of Note DATE: 09/01/16 TIME: 10:48 Assessment/Plan VTE Prophylaxis VTE Prophylaxis Intervention: heparin Lines/Catheters [facility] Type (from [facility] Central Line Central line still needed: Yes Urinary Cath still in place: Yes Reason Cath still needed: other (indicate) Assessment/Plan Chief Complaint/Hosp Course Assessment and plan #1 acute respiratory failure failure: Likely secondary to flash pulmonary edema versus CHF exacerbation vs pneumonia. Status post IV Lasix in the ED. Continue current home medications. Monitor I's and O's. Inpatient Pharmacist has been consulted Extubated on 08/30/2016, continue Lasix and breathing treatment #2 elevated troponin: Patient is asymptomatic without any chest pain Likely secondary to acute on chronic renal insufficiency and CHF exacerbation Follow-up cardiology recommendations #3: Hyperkalemia: Resolved Likely secondary to acute renal insufficiency and medication induced hyperkalemia Nephrology has been consulted, #4 hypertensive emergency: Hypotensive status post IV Lasix Hold blood pressure medications at this time Cardiology following #5 lactic acidosis: Likely secondary to suspected pneumonia Continue vancomycin and Zosyn #6 Renal artery stenosis: Status post bilateral stents. We also continue to monitor the patient's blood pressure and consult nephrology for any further recommendations. 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 Will continue current home medications right now will provide IV diuresis. cardiology Consulted #8 Acute on chronic kidney disease: Patient is nonoliguric. Likely medication induced renal insufficiency, Nephrology has been consulted Caution with nephrotoxic medications #9 Prediabetes: On review of labs patient has an A1c of 6.3 in May. Continue to monitor #10 Large right perihilar, lobe lung mass Chronic, patient has refused biopsy in the past. At this time as per patient 's son patient continues to refuse biopsy. Pulmonology has been consulted, will continue to monitor 11. Anxiety Patient has been started on Paxil DVT and GI prophylaxis: SCDs, Protonix Further treatment strategy will be implemented as per the clinical course Problems: Subjective 24 Hr Interval Summary Free Text/Dictation Patient denies of any chest pain or shortness of breath He was found to be hypotensive with systolic blood pressure mid 80s yesterday afternoon Complains of having generalized weakness No nausea vomiting diarrhea Poor appetite Exam/Review of Systems Vital Signs Vitals Vital Signs Date Time Temp Pulse Resp B/P Pulse Ox O2 Delivery O2 Flow Rate FiO2 09/01/16 08:25 94 09/01/16 07:53 98.1 18 125/60 95 09/01/16 07:40 Nasal Cannula 2.0 08/30/16 15:40 35 Intake and Output 08/31/16 08/31/16 09/01/16 15:00 23:00 07:00 Intake Total 1100 ml 400 ml 500 ml Output Total 500 ml 150 ml 500 ml Balance 600 ml 250 ml 0 ml Exam General: The patient is well-developed, Not in acute distress. HEENT: Atraumatic, normocephalic. The pupils are equal and round . Neck: Supple with full range of motion. Chest: Normal expansion of the thorax during inspiration Lungs: Clear to auscultation bilaterally Heart: Normal S1-S2, Regular rhythm and rate. Abdomen: Soft , nontender, nondistended , bowel sounds are present. Extremities: Normal to inspection, no edema no cyanosis Neurologic: Normal mental status,The patient is awake, alert and oriented . Results Result Diagram: 09/01/16 0525 09/01/16 0525 Results 24 hrs Laboratory Tests Test 09/01/16 05:25 White Blood Count 13.6 H Red Blood Count 3.86 L Hemoglobin 10.9 L Hematocrit 34.3 L Mean Corpuscular Volume 88.9 Mean Corpuscular Hemoglobin 28.2 L Mean Corpuscular Hemoglobin Concent 31.8 L Red Cell Distribution Width 12.9 Platelet Count 399 Mean Platelet Volume 11.5 H Neutrophils % 75.4 Lymphocytes % 11.6 L Monocytes % 9.9 Eosinophils % 1.9 Basophils % 0.5 Nucleated Red Blood Cells % 0.0 Neutrophils # 10.3 H Lymphocytes # 1.6 Monocytes # 1.4 H Eosinophils # 0.3 Basophils # 0.1 Nucleated Red Blood Cells # 0.0 Sodium Level 144 Potassium Level 3.7 Chloride Level 107 Carbon Dioxide Level 25 Anion Gap 16 Blood Urea Nitrogen 59 H Creatinine 3.53 H Glucose Level 111 Calcium Level 9.3 Phosphorus Level 3.5 Magnesium Level 2.4 Random Vancomycin Level 6.1 Medications Medications Current Medications Pantoprazole (Protonix Iv) 40 mg DAILY@06 IV Last administered on 09/01/16t 05: 01; Admin Dose 40 MG; Start 08/30/16 at 06:00 Heparin Sodium (Porcine) (Heparin (5000 Units/0.5 ml)) 5,000 unit Q8 SC Last administered on 09/01/16 05:01; Admin Dose 5,000 UNIT; Start 08/30/16 at 02:01 Hydralazine HCl (Apresoline) 10 mg Q4H PRN IV ELEVATED blood pressure Last administered on 08/31/16 23:35; Admin Dose 10 MG; Start 08/30/16 at 02:00 Acetaminophen 650 mg 650 mg Q4H PRN [place] PAIN LEVEL 1-3 OR FEVER; Start 08/30/16 at 03:00 Piperacillin Sod/ Tazobactam Sod (Zosyn 2.25gm/ 50ml (Pmx)) 50 ml @ 100 mls/hr Q8 IVPB Last administered on 09/01/16 08:32; Admin Dose 100 MLS/HR; Start 08/30 at 07:30 Clopidogrel Bisulfate (plaVIX) 75 mg DAILY PO Last administered on 09/01/16 08: 32; Admin Dose 75 MG; Start 08/30/16 at 09:00 EZETIMIBE (Zetia) 10 mg DAILY PO Last administered on 09/01/16 08:32; Admin Dose 10 MG; Start 08/30/16 at 09:00 Amiodarone HCl (Cordarone) 100 mg DAILY PO Last administered on 09/01/16 08:33 ; Admin Dose 100 MG; Start 08/31/16 at 09:00 Atorvastatin Calcium (Lipitor) 80 mg QHS PO Last administered on 08/31/16 21:19 ; Admin Dose 80 MG; Start 08/31/16 at 21:00 Aspirin (Aspirin) 81 mg DAILY PO Last administered on 09/01/16 08:32; Admin Dose 81 MG; Start 08/31/16 at 09:00 Zolpidem Tartrate 5 mg 5 mg HS PRN PO INSOMNIA Last administered on 08/31/16 23 :35; Admin Dose 5 MG; Start 08/31/16 at 23:30 Vancomycin HCl/ Sodium Chloride (Vancocin/NS) 250 ml @ 83.333 mls/ hr ONCE IVPB ; Start 09/01/16 at 11:30; Stop 09/01/16 at 17:00 GIA WILDER MD Sep 01, 2016 10:52
--- NOTE | 2016-09-01 11:22 | CONS ---
Date/Time of Note Date/Time of Note DATE: 09/01/16 TIME: 11:20 Assessment/Plan Assessment/Plan Additional Assessment/Plan Assessment recommendations; next 1. Patient admitted for respiratory failure due to CHF with marked clinical improvement. 2. 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 3. 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 4. History of cardiac arrhythmia, status post pacemaker 5. Coronary artery disease, status post bypass surgery. 6. History of renal insufficiency, status post bilateral renal artery stenting. Continue current treatment. Patient apparently does not want any kind of workup done for the lung mass. Consultation Date/Type/Reason Admit Date/Time August 30, 2016 at 01:47 Initial Consult Date 08/30/16 Type of Consultation: Pulmonary Referring Provider: SANJUANITA SPAULDING 24 HR Interval Summary Free Text/Dictation Patient condition is stable. Has been transferred out of ICU to the medical floor. Patient denies any shortness of breath, chest pain. Denies any wheezing or sputum production. General exam; elderly male, awake alert currently in no distress. Exam/Review of Systems Vital Signs Vitals Vital Signs Date Time Temp Pulse Resp B/P Pulse Ox O2 Delivery O2 Flow Rate FiO2 09/01/16 08:25 94 09/01/16 07:53 98.1 18 125/60 95 09/01/16 07:40 Nasal Cannula 2.0 08/30/16 15:40 35 Intake and Output 08/31/16 08/31/16 09/01/16 15:00 23:00 07:00 Intake Total 1100 ml 400 ml 500 ml Output Total 500 ml 150 ml 500 ml Balance 600 ml 250 ml 0 ml Exam HEENT examination; supple neck, no JVD. No lymphadenopathy. Midline trachea. No thyromegaly. There is a left carotid scar. Chest examined; clear to auscultation. S1-S2 audible, no murmurs. There is a well-healed sternal scar. Regular rhythm. Abdomen examination; soft, nontender. No organomegaly. Bowel sounds audible. Extremity examination; no peripheral edema. [employer] examination; no focal deficit. Results Result Diagram: 09/01/16 0525 09/01/16 0525 Results 24 hrs Laboratory Tests Test 09/01/16 05:25 White Blood Count 13.6 H Red Blood Count 3.86 L Hemoglobin 10.9 L Hematocrit 34.3 L Mean Corpuscular Volume 88.9 Mean Corpuscular Hemoglobin 28.2 L Mean Corpuscular Hemoglobin Concent 31.8 L Red Cell Distribution Width 12.9 Platelet Count 399 Mean Platelet Volume 11.5 H Neutrophils % 75.4 Lymphocytes % 11.6 L Monocytes % 9.9 Eosinophils % 1.9 Basophils % 0.5 Nucleated Red Blood Cells % 0.0 Neutrophils # 10.3 H Lymphocytes # 1.6 Monocytes # 1.4 H Eosinophils # 0.3 Basophils # 0.1 Nucleated Red Blood Cells # 0.0 Sodium Level 144 Potassium Level 3.7 Chloride Level 107 Carbon Dioxide Level 25 Anion Gap 16 Blood Urea Nitrogen 59 H Creatinine 3.53 H Glucose Level 111 Calcium Level 9.3 Phosphorus Level 3.5 Magnesium Level 2.4 Random Vancomycin Level 6.1 Medications Medications Current Medications Pantoprazole (Protonix Iv) 40 mg DAILY@06 IV Last administered on 09/01/16 05: 01; Admin Dose 40 MG; Start 08/30/16 at 06:00 Heparin Sodium (Porcine) (Heparin (5000 Units/0.5 ml)) 5,000 unit Q8 SC Last administered on 09/01/16 05:01; Admin Dose 5,000 UNIT; Start 08/30/16 at 02:01 Hydralazine HCl (Apresoline) 10 mg Q4H PRN IV ELEVATED blood pressure Last administered on 08/31/16 23:35; Admin Dose 10 MG; Start 08/30/16 at 02:00 Acetaminophen 650 mg 650 mg Q4H PRN [place] PAIN LEVEL 1-3 OR FEVER; Start 08/30/16 at 03:00 Piperacillin Sod/ Tazobactam Sod (Zosyn 2.25gm/ 50ml (Pmx)) 50 ml @ 100 mls/hr Q8 IVPB Last administered on 09/01/16 08:32; Admin Dose 100 MLS/HR; Start 08/30 at 07:30 Clopidogrel Bisulfate (plaVIX) 75 mg DAILY PO Last administered on 09/01/16 08: 32; Admin Dose 75 MG; Start 08/30/16 at 09:00 EZETIMIBE (Zetia) 10 mg DAILY PO Last administered on 09/01/16 08:32; Admin Dose 10 MG; Start 08/30/16 at 09:00 Amiodarone HCl (Cordarone) 100 mg DAILY PO Last administered on 09/01/16 08:33 ; Admin Dose 100 MG; Start 08/31/16 at 09:00 Atorvastatin Calcium (Lipitor) 80 mg QHS PO Last administered on 08/31/16 21:19 ; Admin Dose 80 MG; Start 08/31/16 at 21:00 Aspirin (Aspirin) 81 mg DAILY PO Last administered on 09/01/16 08:32; Admin Dose 81 MG; Start 08/31/16 at 09:00 Zolpidem Tartrate 5 mg 5 mg HS PRN PO INSOMNIA Last administered on 08/31/16 23 :35; Admin Dose 5 MG; Start 08/31/16 at 23:30 Vancomycin HCl/ Sodium Chloride (Vancocin/NS) 250 ml @ 83.333 mls/ hr ONCE IVPB ; Start 09/01/16 at 11:30; Stop 09/01/16 at 17:00 Paroxetine HCl (Paxil) 10 mg DAILY PO ; Start 09/01/16 at 12:00 Diagnostic Test (Pha) (Accu-Chek) 1 ea Q6 XX ; Start 09/01/16 at 12:00 Carvedilol (Coreg) 6.25 mg BID PO ; Start 09/01/16 at 11:30 YUE WESTON Sep 01, 2016 11:22
[2016-09-01] MEDS ORDERED: FUROSEMIDE 20 MG INJ IV ONE (11:30)
[2016-09-01] MEDS ORDERED: VANCOMYCIN 1.5 GM in SOD CHLORIDE 0.9% 250 ML IVPB SCH (11:30)
[2016-09-01] MEDS ORDERED: LORAZEPAM 2 MG INJ IV PRN (11:30)
[2016-09-01] MEDS ORDERED: LORAZEPAM 2 MG INJ IV ONE ×2 (11:30)
--- NOTE | 2016-09-01 11:33 | CONS ---
Date/Time of Note Date/Time of Note DATE: 09/01/16 TIME: 11:26 Assessment/Plan Assessment/Plan Chief Complaint/Hosp Course Acute respiratory failure: Due to recurrent flash pulmonary edema. Shock: Initially hypertensive, then hypotensive from propofol. Now off pressors. BP overall ok except for one time 190 yesterday Acute on chronic renal failure: Cr most recently 2.2. On admission 3.8. He started taking lisinopril so may be the cause. Had a renal ultrasound last week which showed patent renal arteries but now shows possible stenosis on the right concerning for stent thrombosis Hyperkalemia: up to 7.0 on admission, partially from acidemia, now resolved Acute on chronic systolic heart failure: EF 20%. Flash episodes as above. Still decompensated mildly Hypertensive emergency: etiology remains unclear as above. Renal ultrasound suggests that the right renal may be stenosed again (if true would be thrombosis as too early for stenosis) NSTEMI: Trops up to 0.3 in setting of renal failure and respiratory failure. No indication for cardiac cath at this time CAD s/p CABG/PCI: No chest pain. EKG abnormalities are likely due to hyperkalemia Bilateral renal artery stents Carotid stenosis s/p CEA Lung mass -lasix 20mg x 1 now. Will assess daily -Dr. Bailon to eval ultrasound findings, may need repeat angiography once renal function is better -ASA, plavix, lipitor, zetia -restart coreg 6.25mg BID -if BP still elevated, likely isordil/hydralazine combo -ativan 1mg IV now, and PO PRN -also started on paxil for anxiety Problems: Consultation Date/Type/Reason Admit Date/Time August 30, 2016 at 01:47 Initial Consult Date 08/30/16 Type of Consultation: Cardiology Referring Provider: SANJUANITA SPAULDING 24 HR Interval Summary Free Text/Dictation Had an episode of SBP 190 last night (not documented in vitals but did receive hydralazine. Otherwise BP was very low yesterday but on the rise today. He is very anxious again and he thinks it was anxiety related again last night. Exam/Review of Systems Vital Signs Vitals Vital Signs Date Time Temp Pulse Resp B/P Pulse Ox O2 Delivery O2 Flow Rate FiO2 09/01/16 08:25 94 09/01/16 07:53 98.1 18 125/60 95 09/01/16 07:40 Nasal Cannula 2.0 08/30/16 15:40 35 Intake and Output 08/31/16 08/31/16 09/01/16 15:00 23:00 07:00 Intake Total 1100 ml 400 ml 500 ml Output Total 500 ml 150 ml 500 ml Balance 600 ml 250 ml 0 ml Exam Constitutional: alert, oriented, other Psych: anxiety Head: atraumatic, normocephalic Neck: jvd (7cm) Respiratory: crackles/rales, No clear to auscultation Cardiovascular: regular rate and rhythm, No edema Gastrointestinal: non-tender, soft Neurological: nl mental status, nl speech Results Result Diagram: 09/01/1652409/01/16524 Results 24 hrs Laboratory Tests Test 09/01/16 05:25 White Blood Count 13.6 H Red Blood Count 3.86 L Hemoglobin 10.9 L Hematocrit 34.3 L Mean Corpuscular Volume 88.9 Mean Corpuscular Hemoglobin 28.2 L Mean Corpuscular Hemoglobin Concent 31.8 L Red Cell Distribution Width 12.9 Platelet Count 399 Mean Platelet Volume 11.5 H Neutrophils % 75.4 Lymphocytes % 11.6 L Monocytes % 9.9 Eosinophils % 1.9 Basophils % 0.5 Nucleated Red Blood Cells % 0.0 Neutrophils # 10.3 H Lymphocytes # 1.6 Monocytes # 1.4 H Eosinophils # 0.3 Basophils # 0.1 Nucleated Red Blood Cells # 0.0 Sodium Level 144 Potassium Level 3.7 Chloride Level 107 Carbon Dioxide Level 25 Anion Gap 16 Blood Urea Nitrogen 59 H Creatinine 3.53 H Glucose Level 111 Calcium Level 9.3 Phosphorus Level 3.5 Magnesium Level 2.4 Random Vancomycin Level 6.1 Medications Medications Current Medications Pantoprazole (Protonix Iv) 40 mg DAILY@06 IV Last administered on 09/01/16 05: 01; Admin Dose 40 MG; Start 08/30/16 at 06:00 Heparin Sodium (Porcine) (Heparin (5000 Units/0.5 ml)) 5,000 unit Q8 SC Last administered on 09/01/16 05:01; Admin Dose 5,000 UNIT; Start 08/30/16 at 02:01 Hydralazine HCl (Apresoline) 10 mg Q4H PRN IV ELEVATED blood pressure Last administered on 08/31/16 23:35; Admin Dose 10 MG; Start 08/30/16 at 02:00 Acetaminophen 650 mg 650 mg Q4H PRN [place] PAIN LEVEL 1-3 OR FEVER; Start 08/30/16 at 03:00 Piperacillin Sod/ Tazobactam Sod (Zosyn 2.25gm/ 50ml (Pmx)) 50 ml @ 100 mls/hr Q8 IVPB Last administered on 09/01/16 08:32; Admin Dose 100 MLS/HR; Start 08/30 at 07:30 Clopidogrel Bisulfate (plaVIX) 75 mg DAILY PO Last administered on 09/01/16 08: 32; Admin Dose 75 MG; Start 08/30/16 at 09:00 EZETIMIBE (Zetia) 10 mg DAILY PO Last administered on 09/01/16 08:32; Admin Dose 10 MG; Start 08/30/16 at 09:00 Amiodarone HCl (Cordarone) 100 mg DAILY PO Last administered on 09/01/16 08:33 ; Admin Dose 100 MG; Start 08/31/16 at 09:00 Atorvastatin Calcium (Lipitor) 80 mg QHS PO Last administered on 08/31/16 21:19 ; Admin Dose 80 MG; Start 08/31/16 at 21:00 Aspirin (Aspirin) 81 mg DAILY PO Last administered on 09/01/16 08:32; Admin Dose 81 MG; Start 08/31/16 at 09:00 Zolpidem Tartrate 5 mg 5 mg HS PRN PO INSOMNIA Last administered on 08/31/16 23 :35; Admin Dose 5 MG; Start 08/31/16 at 23:30 Vancomycin HCl/ Sodium Chloride (Vancocin/NS) 250 ml @ 83.333 mls/ hr ONCE IVPB ; Start 09/01/16 at 11:30; Stop 09/01/16 at 17:00 Paroxetine HCl (Paxil) 10 mg DAILY PO ; Start 09/01/16 at 12:00 Diagnostic Test (Pha) (Accu-Chek) 1 ea Q6 XX ; Start 09/01/16 at 12:00 Carvedilol (Coreg) 6.25 mg BID PO ; Start 09/01/16 at 11:30 Lorazepam (Ativan) 1 mg ONCE ONCE IV ; Start 09/01/16 at 11:30; Stop 09/01/16 at 11:31 Lorazepam (Ativan) 1 mg Q8H PRN IV anxiety; Start 09/01/16 at 11:30; Status CAINV EMILY TREVIÑO Sep 01, 2016 11:33
[2016-09-01] MEDS: ACCU-CHEK XX SCH ×3 (11:53→23:59)
[2016-09-01] MEDS: PAROXETINE 10 MG TAB PO SCH (11:59)
[2016-09-01 13:31] LABS: CREATININE, RANDOM URINE 41 mg/dL (20-370); MICROALBUMIN <0.2 mg/dL; MICROALBUMIN/CREATININE RATIO NOTE (<30)
[2016-09-01] MEDS: ATORVASTATIN 10 MG TAB PO SCH (20:47)
[2016-09-01] MEDS: LORAZEPAM 1 MG TAB PO PRN (22:50)
[2016-09-02] VITALS (13 sets, daily range): BP systolic 124–157; BP diastolic 59–78; PULSE 67–81; RESP 18–20
[2016-09-02] MEDS: PIPER-TAZO 2.25 GM (PMX) 50 ML IVPB SCH ×3 (05:51→21:57)
[2016-09-02] MEDS: HEPARIN 5,000 UNIT/0.5 ML VIAL SC SCH ×3 (05:59→22:02)
[2016-09-02] MEDS: PANTOPRAZOLE 40 MG INJ IV SCH (06:01)
[2016-09-02] MEDS: ACCU-CHEK XX SCH ×3 (06:01→17:47)
--- NOTE | 2016-09-02 08:26 | CONS ---
Date/Time of Note Date/Time of Note DATE: 09/02/16 TIME: 08:22 Consult Date/Type/Reason Admit Date/Time August 30, 2016 at 01:47 Initial Consult Date 08/30/16 Type of Consultation: neph Ordering Provider: SANJUANITA SPAULDING The patient was transferred from intensive care unit to telemetry. The patient is clinically stable. Blood pressures have been well controlled. No acute events noted. poc reviewed with dr. henderson. OBJECTIVE: HEENT: Head is normocephalic. NECK: Supple. HEART: Regular rate. LUNGS: Show diminished breath sounds at base. ABDOMEN: Soft, nontender to palpation without rebound or guarding. EXTREMITIES: Negative for clubbing, cyanosis, no edema. DERMATOLOGIC: No rashes. MUSCULOSKELETAL: No joint effusions. NEUROLOGIC: No change in exam. MEDICATIONS: The patient's medications have been reviewed. IMAGING: The patient's renal arterial study shows a stent in the proximal right renal artery on CT, possibly intrastent stenosis. The patient was noted to have elevated right renal velocity indices. Objective Vital Signs Date Time Temp Pulse Resp B/P Pulse Ox O2 Delivery O2 Flow Rate FiO2 09/02/16 08:12 71 09/02/16 07:52 Nasal Cannula 2.0 09/02/16 07:48 98.2 19 147/72 98 08/30/16 15:40 35 Intake and Output 09/01/16 09/01/16 09/02/16 15:00 23:00 07:00 Intake Total 770 ml 250 ml Output Total 900 ml 800 ml Balance -130 ml -550 ml Results/Medications Result Diagram: 09/01/16 0525 09/01/16 0525 Results 24 hrs Laboratory Tests Test 09/01/16 17:23 09/01/16 23:57 09/02/16 05:52 Bedside Glucose 144 113 121 Medications Current Medications Pantoprazole (Protonix Iv) 40 mg DAILY@06 IV Last administered on 09/02/16 06: 01; Admin Dose 40 MG; Start 08/30/16 at 06:00 Heparin Sodium (Porcine) (Heparin (5000 Units/0.5 ml)) 5,000 unit Q8 SC Last administered on 09/02/16 05:59; Admin Dose 5,000 UNIT; Start 08/30/16 at 02:01 Hydralazine HCl (Apresoline) 10 mg Q4H PRN IV ELEVATED blood pressure Last administered on 08/31/16 23:35; Admin Dose 10 MG; Start 08/30/16 at 02:00 Acetaminophen 650 mg 650 mg Q4H PRN [place] PAIN LEVEL 1-3 OR FEVER; Start 08/30/16 at 03:00 Piperacillin Sod/ Tazobactam Sod (Zosyn 2.25gm/ 50ml (Pmx)) 50 ml @ 100 mls/hr Q8 IVPB Last administered on 09/02/16 05:51; Admin Dose 100 MLS/HR; Start 08/30 at 07:30 Clopidogrel Bisulfate (plaVIX) 75 mg DAILY PO Last administered on 09/01/16 08: 32; Admin Dose 75 MG; Start 08/30/16 at 09:00 EZETIMIBE (Zetia) 10 mg DAILY PO Last administered on 09/01/16 08:32; Admin Dose 10 MG; Start 08/30/16 at 09:00 Amiodarone HCl (Cordarone) 100 mg DAILY PO Last administered on 09/01/16 08:33 ; Admin Dose 100 MG; Start 08/31/16 at 09:00 Atorvastatin Calcium (Lipitor) 80 mg QHS PO Last administered on 09/01/16 20:47 ; Admin Dose 80 MG; Start 08/31/16 at 21:00 Aspirin (Aspirin) 81 mg DAILY PO Last administered on 09/01/16 08:32; Admin Dose 81 MG; Start 08/31/16 at 09:00 Zolpidem Tartrate (Ambien) 5 mg HS PRN PO INSOMNIA Last administered on 23:35; Admin Dose 5 MG; Start 08/31/16 at 23:30 Paroxetine HCl (Paxil) 10 mg DAILY PO Last administered on 09/01/16 11:59; Admin Dose 10 MG; Start 09/01/16 at 12:00 Diagnostic Test (Pha) (Accu-Chek) 1 ea Q6 XX Last administered on 09/02/16 06: 01; Admin Dose 1 EA; Start 09/01/16 at 12:00 Carvedilol (Coreg) 6.25 mg BID PO Last administered on 09/01/16 20:47; Admin Dose 6.25 MG; Start 09/01/16 at 11:30 Lorazepam (Ativan) 1 mg Q8H PRN PO ANXIETY Last administered on 09/01/16t 22:50 ; Admin Dose 1 MG; Start 09/01/16 at 18:00 Assessment/Plan Chief Complaint/Hosp Course 1. Nonoliguric acute kidney injury on top of chronic kidney disease, stage IV, with a previous baseline creatinine of 2 to 2.5 mg/dL. Etiology of acute kidney injury is secondary to hemodynamics, possible tubular injury. Possible renal artery stenosis, in-stent thrombosis, is also a contributing factor. The patient's renal function, however, has been improving. We will continue current treatment plan, supportive care, renally dose all meds. 2. Bilateral renal artery stenosis. The patient is status post stenting. An arterial ultrasound suggested possible intrastent stenosis of the right renal artery. We will place a vascular surgery consult for evaluation and continue to monitor closely. may need repeat angioplasty. 3. Hypertensive urgency. Etiology is possibly multifactorial, secondary to anxiety and agitation. Secondary causes such as a paraganglioma or pheochromocytoma is being considered. Plan is to order an MIBG scan if cleared by Radiology. We will continue to monitor. Currently, the patient is off blood pressure medications. We will expect to reintroduce blood pressure medications as the patient becomes more hypertensive. consider adding aldactone in setting of possible MAHESH. 4. Acute hypoxemic respiratory failure secondary to flash pulmonary edema. The patient is currently stable. Continue low-dose diuretic therapy and monitor. may be exacerbated by renal artery restenosis. 5. Acute congestive heart failure exacerbation secondary to flash pulmonary edema. Etiology, is likely hypertensive urgency crisis. At this point, the patient appears euvolemic. Continue low-dose diuretic therapy. Continue to monitor. 6. Mineral bone disorder. Monitor calcium and phosphorus levels. 7. Anemia. Monitor H and H levels. 8. Shock. The patient is currently on IV antibiotics. Continue to monitor. 9. Lung mass. Etiology is unclear. Further workup has been deferred, per family. They have refused biopsy in the past. We will continue to monitor. 10. History of coronary artery disease, status post coronary artery bypass graft. 11. Elevated troponin, possible non-ST elevation myocardial infarction. Continue medical management. 12. History of carotid stenosis status post endarterectomy. Problems: MITCHELL VILLAFUERTE MD Sep 02, 2016 08:26
[2016-09-02] MEDS: CLOPIDOGREL 75 MG TAB PO SCH (08:31)
[2016-09-02] MEDS: ASPIRIN 81 MG TAB PO SCH (08:32)
[2016-09-02] MEDS: PAROXETINE 10 MG TAB PO SCH (08:33)
[2016-09-02] MEDS: EZETIMIBE 10 MG TAB PO SCH (08:33)
[2016-09-02] MEDS: AMIODARONE 200 MG TAB PO SCH (08:33)
[2016-09-02] MEDS: FUROSEMIDE 20 MG TAB PO SCH (08:38)
[2016-09-02 08:48] LABS: CALCIUM 9.1 mg/dl (8.4-10.2); CREATININE 2.96 mg/dl (0.61-1.24); MAGNESIUM 2.4 mg/dl (1.7-2.5); POTASSIUM 4.2 mmol/L (3.5-5.1)
--- NOTE | 2016-09-02 09:17 | CONS ---
Date/Time of Note Date/Time of Note DATE: 09/02/16 TIME: 09:15 Assessment/Plan Assessment/Plan Chief Complaint/Hosp Course Acute respiratory failure: Due to recurrent flash pulmonary edema. Resolved Shock: Initially hypertensive, then hypotensive from propofol. Now off pressors. BP overall ok except for one time 190 Acute on chronic renal failure: Cr most recently 2.2. On admission 3.8. He started taking lisinopril so may be the cause. Had a renal ultrasound last week which showed patent renal arteries but now shows possible stenosis on the right concerning for stent thrombosis. Improving Hyperkalemia: up to 7.0 on admission, partially from acidemia, now resolved Acute on chronic systolic heart failure: EF 20%. Flash episodes as above. Close to euvolemic Hypertensive emergency: etiology remains unclear as above. Renal ultrasound suggests that the right renal may be stenosed again (if true would be thrombosis as too early for stenosis) NSTEMI: Trops up to 0.3 in setting of renal failure and respiratory failure. No indication for cardiac cath at this time CAD s/p CABG/PCI: No chest pain Bilateral renal artery stents Carotid stenosis s/p CEA Lung mass -lasix 20mg PO daily -Dr. Bailon to eval ultrasound findings, may need repeat angiography once renal function is better -ASA, plavix, lipitor, zetia -coreg 6.25mg BID -start isordil 5mg, hydralazine 25mg TID Problems: Consultation Date/Type/Reason Admit Date/Time August 30, 2016 at 01:47 Initial Consult Date 08/30/16 Type of Consultation: Cardiology Referring Provider: SANJUANITA SPAULDING 24 HR Interval Summary Free Text/Dictation No o/n events. No BP spikes. No complaints Exam/Review of Systems Vital Signs Vitals Vital Signs Date Time Temp Pulse Resp B/P Pulse Ox O2 Delivery O2 Flow Rate FiO2 09/02/16 08:12 71 09/02/16 07:52 Nasal Cannula 2.0 09/02/16 07:48 98.2 19 147/72 98 08/30/16 15:40 35 Intake and Output 09/01/16 09/01/16 09/02/16 15:00 23:00 07:00 Intake Total 770 ml 250 ml Output Total 900 ml 800 ml Balance -130 ml -550 ml Exam Constitutional: alert, oriented Psych: no complaints Head: atraumatic, normocephalic Neck: No jvd Respiratory: No clear to auscultation (mild crackles ) Cardiovascular: regular rate and rhythm, No edema Gastrointestinal: non-tender, soft Neurological: nl mental status, nl speech Results Result Diagram: 09/01/16 0525 09/02/16 0730 Results 24 hrs Laboratory Tests Test 09/01/16 17:23 09/01/16 23:57 09/02/16 05:52 09/02/16 07:30 Bedside Glucose 144 113 121 Sodium Level 143 Potassium Level 4.2 Chloride Level 108 Carbon Dioxide Level 27 Anion Gap 12 Blood Urea Nitrogen 50 H Creatinine 2.96 H Glucose Level 109 Calcium Level 9.1 Phosphorus Level 4.0 Magnesium Level 2.4 Medications Medications Current Medications Pantoprazole (Protonix Iv) 40 mg DAILY@06 IV Last administered on 09/02/16 06: 01; Admin Dose 40 MG; Start 08/30/16 at 06:00 Heparin Sodium (Porcine) (Heparin (5000 Units/0.5 ml)) 5,000 unit Q8 SC Last administered on 09/02/16 05:59; Admin Dose 5,000 UNIT; Start 08/30/16 at 02:01 Hydralazine HCl (Apresoline) 10 mg Q4H PRN IV ELEVATED blood pressure Last administered on 08/31/16 23:35; Admin Dose 10 MG; Start 08/30/16 at 02:00 Acetaminophen 650 mg 650 mg Q4H PRN [place] PAIN LEVEL 1-3 OR FEVER; Start 08/30/16 at 03:00 Piperacillin Sod/ Tazobactam Sod (Zosyn 2.25gm/ 50ml (Pmx)) 50 ml @ 100 mls/hr Q8 IVPB Last administered on 09/02/16 05:51; Admin Dose 100 MLS/HR; Start 08/30 at 07:30 Clopidogrel Bisulfate (plaVIX) 75 mg DAILY PO Last administered on 09/02/16 08: 31; Admin Dose 75 MG; Start 08/30/16 at 09:00 EZETIMIBE (Zetia) 10 mg DAILY PO Last administered on 09/02/16 08:33; Admin Dose 10 MG; Start 08/30/16 at 09:00 Amiodarone HCl (Cordarone) 100 mg DAILY PO Last administered on 09/02/16 08:33 ; Admin Dose 100 MG; Start 08/31/16 at 09:00 Atorvastatin Calcium (Lipitor) 80 mg QHS PO Last administered on 09/01/16 20:47 ; Admin Dose 80 MG; Start 08/31/16 at 21:00 Aspirin (Aspirin) 81 mg DAILY PO Last administered on 09/02/16 08:32; Admin Dose 81 MG; Start 08/31/16 at 09:00 Zolpidem Tartrate (Ambien) 5 mg HS PRN PO INSOMNIA Last administered on 23:35; Admin Dose 5 MG; Start 08/31/16 at 23:30 Paroxetine HCl (Paxil) 10 mg DAILY PO Last administered on 09/02/16 08:33; Admin Dose 10 MG; Start 09/01/16 at 12:00 Diagnostic Test (Pha) (Accu-Chek) 1 ea Q6 XX Last administered on 09/02/16 06: 01; Admin Dose 1 EA; Start 09/01/16 at 12:00 Carvedilol (Coreg) 6.25 mg BID PO Last administered on 09/02/16 08:32; Admin Dose 6.25 MG; Start 09/01/16 at 11:30 Lorazepam (Ativan) 1 mg Q8H PRN PO ANXIETY Last administered on 09/01/16 22:50 ; Admin Dose 1 MG; Start 09/01/16 at 18:00 Furosemide (Lasix) 20 mg DAILY PO Last administered on 09/02/16 08:38; Admin Dose 20 MG; Start 09/02/16 at 09:00 Isosorbide Dinitrate (Isordil) 5 mg TID PO ; Start 09/02/16 at 09:00 Hydralazine HCl (Apresoline) 25 mg TID PO Last administered on 09/02/16 08:39; Admin Dose 25 MG; Start 09/02/16 at 09:00 EMILY TREVIÑO Sep 02, 2016 09:17
--- NOTE | 2016-09-02 10:29 | CONS ---
Date/Time of Note Date/Time of Note DATE: 09/02/16 TIME: 10:27 Assessment/Plan Assessment/Plan Additional Assessment/Plan Assessment recommendations; next 1. Patient admitted for respiratory failure due to pulmonary edema with marked overall clinical improvement. 2. 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 Patient however refusing any kind of workup. 3. 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 4. History of coronary artery disease, status post bypass surgery. 5. CHF. 6. History of bilateral renal artery stenting. 7. History of cardiac arrhythmia, status post pacemaker placement. Continue current treatment. Patient can be discharged home. Prognosis is poor on account of multiple comorbidities especially in light of right upper lobe lung mass which looks malignant until proven otherwise and has the potential of widespread metastasis. Consultation Date/Type/Reason Admit Date/Time August 30, 2016 at 01:47 Initial Consult Date 08/30/16 Type of Consultation: Pulmonary/critical care Referring Provider: SANJUANITA SPAULDING 24 HR Interval Summary Free Text/Dictation Patient condition stable. Denies any shortness of breath, chest pain, wheezing cough or sputum production. Denies any hemoptysis. General exam; elderly male, awake alert currently in no distress. Exam/Review of Systems Vital Signs Vitals Vital Signs Date Time Temp Pulse Resp B/P Pulse Ox O2 Delivery O2 Flow Rate FiO2 09/02/16 08:12 71 09/02/16 07:52 Nasal Cannula 2.0 09/02/16 07:48 98.2 19 147/72 98 08/30/16 15:40 35 Intake and Output 09/01/16 09/01/16 09/02/16 15:00 23:00 07:00 Intake Total 770 ml 250 ml Output Total 900 ml 800 ml Balance -130 ml -550 ml Exam HEENT exam; supple neck, no JVD. No lymphadenopathy. Midline trachea. No thyromegaly. Pharynx is clear. Neck Chest examination; clear to auscultation. S1-S2 audible, no murmurs. There is a pacemaker in the left chest wall. There is a well-healed sternal scar. Abdomen examination; soft, nondistended. No organomegaly. Bowel sounds audible. Extremity examination; no peripheral edema. No clubbing. [employer] examination; no focal deficit. Results Result Diagram: 09/01/16 0525 09/02/16 0730 Results 24 hrs Laboratory Tests Test 09/01/16 17:23 09/01/16 23:57 09/02/16 05:52 09/02/16 07:30 Bedside Glucose 144 113 121 Sodium Level 143 Potassium Level 4.2 Chloride Level 108 Carbon Dioxide Level 27 Anion Gap 12 Blood Urea Nitrogen 50 H Creatinine 2.96 H Glucose Level 109 Calcium Level 9.1 Phosphorus Level 4.0 Magnesium Level 2.4 Medications Medications Current Medications Pantoprazole (Protonix Iv) 40 mg DAILY@06 IV Last administered on 09/02/16 06: 01; Admin Dose 40 MG; Start 08/30/16 at 06:00 Heparin Sodium (Porcine) (Heparin (5000 Units/0.5 ml)) 5,000 unit Q8 SC Last administered on 09/02/16 05:59; Admin Dose 5,000 UNIT; Start 08/30/16 at 02:01 Hydralazine HCl (Apresoline) 10 mg Q4H PRN IV ELEVATED blood pressure Last administered on 08/31/16 23:35; Admin Dose 10 MG; Start 08/30/16 at 02:00 Acetaminophen 650 mg 650 mg Q4H PRN [place] PAIN LEVEL 1-3 OR FEVER; Start 08/30/16 at 03:00 Piperacillin Sod/ Tazobactam Sod (Zosyn 2.25gm/ 50ml (Pmx)) 50 ml @ 100 mls/hr Q8 IVPB Last administered on 09/02/16 05:51; Admin Dose 100 MLS/HR; Start 08/30 at 07:30 Clopidogrel Bisulfate (plaVIX) 75 mg DAILY PO Last administered on 09/02/16 08: 31; Admin Dose 75 MG; Start 08/30/16 at 09:00 EZETIMIBE (Zetia) 10 mg DAILY PO Last administered on 09/02/16 08:33; Admin Dose 10 MG; Start 08/30/16 at 09:00 Amiodarone HCl (Cordarone) 100 mg DAILY PO Last administered on 09/02/16 08:33 ; Admin Dose 100 MG; Start 08/31/16 at 09:00 Atorvastatin Calcium (Lipitor) 80 mg QHS PO Last administered on 09/01/16 20:47 ; Admin Dose 80 MG; Start 08/31/16 at 21:00 Aspirin (Aspirin) 81 mg DAILY PO Last administered on 09/02/16 08:32; Admin Dose 81 MG; Start 08/31/16 at 09:00 Zolpidem Tartrate (Ambien) 5 mg HS PRN PO INSOMNIA Last administered on 23:35; Admin Dose 5 MG; Start 08/31/16 at 23:30 Paroxetine HCl (Paxil) 10 mg DAILY PO Last administered on 09/02/16 08:33; Admin Dose 10 MG; Start 09/01/16 at 12:00 Diagnostic Test (Pha) (Accu-Chek) 1 ea Q6 XX Last administered on 09/02/16 06: 01; Admin Dose 1 EA; Start 09/01/16 at 12:00 Carvedilol (Coreg) 6.25 mg BID PO Last administered on 09/02/16 08:32; Admin Dose 6.25 MG; Start 09/01/16 at 11:30 Lorazepam (Ativan) 1 mg Q8H PRN PO ANXIETY Last administered on 09/01/16 22:50 ; Admin Dose 1 MG; Start 09/01/16 at 18:00 Furosemide (Lasix) 20 mg DAILY PO Last administered on 09/02/16 08:38; Admin Dose 20 MG; Start 09/02/16 at 09:00 Isosorbide Dinitrate (Isordil) 5 mg TID PO ; Start 09/02/16 at 09:00 Hydralazine HCl (Apresoline) 25 mg TID PO Last administered on 09/02/16 08:39; Admin Dose 25 MG; Start 09/02/16 at 09:00 YUE WESTON Sep 02, 2016 10:29
[2016-09-02] MEDS: ISOSORBIDE DINITRATE 5 MG TAB PO SCH ×3 (10:42→20:45)
--- NOTE | 2016-09-02 11:10 | PN ---
Date/Time of Note Date/Time of Note DATE: 09/02/16 TIME: 10:51 Assessment/Plan VTE Prophylaxis VTE Prophylaxis Intervention: ambulation, SCD's Lines/Catheters IV [facility]from [facility] Central Line Central line still needed: Yes Urinary Cath still in place: No Assessment/Plan Assessment/Plan 1. Recurrent acute respiratory failure s/p Vent dependence : * Extubated on 08/30/2016 / continue Lasix and breathing treatment / stable on NC * This is usually secondary to flash pulmonary edema, which was thought to be secondary to bilateral renal artery stenosis. * The patient is status post bilateral renal artery stenting, but still presented with another episode of flash pulmonary edema. * Pulmonary is suggesting the possibility of a paraneoplastic syndrome as the patient has a chronic lung mass for which she constantly refuses workup hence we do not know if this is malignant or not. 2. S/p Systemic Shock : ?Cardiogenic versus Septic : resolved / off pressors 3. S/p Elevated troponins : 2/2 CHF and renal failure / trended down / no Cath per Cards 4. Possible Pneumonia contributing to shock 5. Acute on chronic kidney disease: thought to be 2/2 hypoperfusion 2/2 #2, however USS now showing possible instent stenosis of renal aa stent 6. Hypertensive emergency > Shock > Normotension 7. Renal artery stenosis: Status post bilateral stents / Now with possible R sided in-stent stenosis 8. Severe systolic/diastolic heart failure with Isch CM and EF of 20% s/p ICD 9. Known CAD s/p CABG. 10. Carotid stenosis s/p CEA 11. Prediabetes: On review of labs patient has an A1c of 6.3 in May. 12. Chronic Large right perihilar lung mass: patient continues to refuse biopsy. 13. Chronic Anxiety disorder recently started on Paxil PLAN: * Vascular surgery evaluation for possible in-stent stenosis * Cardiology continues to titrate medications for optimal heart and blood pressure control * Continue serial lab for hemoglobin and electrolyte monitoring and management * Patient continues with excellent glycemic control, continue monitoring and current management continue but is broad-spectrum * Continue broad-spectrum antibiotics for now * Continue supportive care DVT and GI prophylaxis: SCDs, Protonix Subjective 24 Hr Interval Summary Constitutional: improved Respiratory: No cough, No pleuritic pain, No shortness of breath Cardiovascular: No chest pain, No lightheadedness Exam/Review of Systems Vital Signs Vitals Vital Signs Date Time Temp Pulse Resp B/P Pulse Ox O2 Delivery O2 Flow Rate FiO2 09/02/16 08:12 71 09/02/16 07:52 Nasal Cannula 2.0 09/02/16 07:48 98.2 19 147/72 98 08/30/16 15:40 35 Intake and Output 09/01/16 09/01/16 09/02/16 15:00 23:00 07:00 Intake Total 770 ml 250 ml Output Total 900 ml 800 ml Balance -130 ml -550 ml Exam General: The patient is well-developed, Not in acute distress. HEENT: Atraumatic, normocephalic. The pupils are equal and round . Neck: Supple with full range of motion. Chest: Normal expansion of the thorax during inspiration Lungs: Clear to auscultation bilaterally Heart: Normal S1-S2, Regular rhythm and rate. Abdomen: Soft , nontender, nondistended , bowel sounds are present. Extremities: Normal to inspection, no edema no cyanosis Neurologic: Normal mental status,The patient is awake, alert and oriented . Results Result Diagram: 09/01/16 0525 09/02/16 0730 Results 24 hrs Laboratory Tests Test 09/01/16 17:23 09/01/16 23:57 09/02/16 05:52 09/02/16 07:30 Bedside Glucose 144 113 121 Sodium Level 143 Potassium Level 4.2 Chloride Level 108 Carbon Dioxide Level 27 Anion Gap 12 Blood Urea Nitrogen 50 H Creatinine 2.96 H Glucose Level 109 Calcium Level 9.1 Phosphorus Level 4.0 Magnesium Level 2.4 Medications Medications Current Medications Pantoprazole (Protonix Iv) 40 mg DAILY@06 IV Last administered on 09/02/16 06: 01; Admin Dose 40 MG; Start 08/30/16 at 06:00 Heparin Sodium (Porcine) (Heparin (5000 Units/0.5 ml)) 5,000 unit Q8 SC Last administered on 09/02/16 05:59; Admin Dose 5,000 UNIT; Start 08/30/16 at 02:01 Hydralazine HCl (Apresoline) 10 mg Q4H PRN IV ELEVATED blood pressure Last administered on 08/31/16 23:35; Admin Dose 10 MG; Start 08/30/16 at 02:00 Acetaminophen 650 mg 650 mg Q4H PRN [place] PAIN LEVEL 1-3 OR FEVER; Start 08/30/16 at 03:00 Piperacillin Sod/ Tazobactam Sod (Zosyn 2.25gm/ 50ml (Pmx)) 50 ml @ 100 mls/hr Q8 IVPB Last administered on 09/02/16 05:51; Admin Dose 100 MLS/HR; Start 08/30 at 07:30 Clopidogrel Bisulfate (plaVIX) 75 mg DAILY PO Last administered on 09/02/16 08: 31; Admin Dose 75 MG; Start 08/30/16 at 09:00 EZETIMIBE (Zetia) 10 mg DAILY PO Last administered on 09/02/16 08:33; Admin Dose 10 MG; Start 08/30/16 at 09:00 Amiodarone HCl (Cordarone) 100 mg DAILY PO Last administered on 09/02/16 08:33 ; Admin Dose 100 MG; Start 08/31/16 at 09:00 Atorvastatin Calcium (Lipitor) 80 mg QHS PO Last administered on 09/01/16 20:47 ; Admin Dose 80 MG; Start 08/31/16 at 21:00 Aspirin (Aspirin) 81 mg DAILY PO Last administered on 09/02/16 08:32; Admin Dose 81 MG; Start 08/31/16 at 09:00 Zolpidem Tartrate (Ambien) 5 mg HS PRN PO INSOMNIA Last administered on 23:35; Admin Dose 5 MG; Start 08/31/16 at 23:30 Paroxetine HCl (Paxil) 10 mg DAILY PO Last administered on 09/02/16 08:33; Admin Dose 10 MG; Start 09/01/16 at 12:00 Diagnostic Test (Pha) (Accu-Chek) 1 ea Q6 XX Last administered on 09/02/16 06: 01; Admin Dose 1 EA; Start 09/01/16 at 12:00 Carvedilol (Coreg) 6.25 mg BID PO Last administered on 09/02/16 08:32; Admin Dose 6.25 MG; Start 09/01/16 at 11:30 Lorazepam (Ativan) 1 mg Q8H PRN PO ANXIETY Last administered on 09/01/16 22:50 ; Admin Dose 1 MG; Start 09/01/16 at 18:00 Furosemide (Lasix) 20 mg DAILY PO Last administered on 09/02/16 08:38; Admin Dose 20 MG; Start 09/02/16 at 09:00 Isosorbide Dinitrate (Isordil) 5 mg TID PO Last administered on 09/02/16 10:42 ; Admin Dose 5 MG; Start 09/02/16 at 09:00 Hydralazine HCl (Apresoline) 25 mg TID PO Last administered on 09/02/16 08:39; Admin Dose 25 MG; Start 09/02/16 at 09:00 SANJUANITA SPAULDING Sep 02, 2016 11:02
[2016-09-02] MEDS: ATORVASTATIN 10 MG TAB PO SCH (20:43)
[2016-09-02] MEDS: LORAZEPAM 1 MG TAB PO PRN (21:56)
[2016-09-03] VITALS (11 sets, daily range): BP systolic 131–163; BP diastolic 68–80; PULSE 69–89; RESP 18–19
[2016-09-03] MEDS: PANTOPRAZOLE 40 MG INJ IV SCH (05:48)
[2016-09-03] MEDS: PIPER-TAZO 2.25 GM (PMX) 50 ML IVPB SCH ×3 (05:48→22:06)
[2016-09-03] MEDS: HEPARIN 5,000 UNIT/0.5 ML VIAL SC SCH ×3 (05:52→22:10)
[2016-09-03] MEDS: ACCU-CHEK XX SCH ×4 (05:53→18:00)
[2016-09-03 07:42] LABS: ADD SCAN DIFF NO
[2016-09-03 07:47] LABS: BASOPHIL # 0.1 10^3/ul (0.0-0.1); BASOPHILS % 0.7 % (0.0-2.0); EOSINOPHILS # 0.5 10^3/ul (0.0-0.5); EOSINOPHILS % 5.1 % (0.0-7.0); HEMATOCRIT 33.1 % (42.0-52.0); HEMOGLOBIN 10.3 g/dl (14.0-18.0); LYMPHOCYTES # 1.8 10^3/ul (0.8-2.9); LYMPHOCYTES % 18.1 % (15.0-51.0); MEAN CORPUSCULAR HEMOGLOBIN 27.7 pg (29.0-33.0); MEAN CORPUSCULAR HGB CONC 31.1 g/dl (32.0-37.0); MEAN PLATELET VOLUME 11.4 fl (7.4-10.4); MONOCYTES % 9.9 % (0.0-11.0); NEUTROPHIL # 6.4 10^3/ul (1.6-7.5); NEUTROPHILS % 65.4 % (39.0-77.0); PLATELET COUNT 379 10^3/UL (140-415); RED BLOOD COUNT 3.72 10^6/ul (4.70-6.10); RED CELL DISTRIBUTION WIDTH 12.5 % (11.5-14.5); WHITE BLOOD COUNT 9.8 10^3/ul (4.8-10.8)
[2016-09-03 07:59] LABS: POTASSIUM 4.2 mmol/L (3.5-5.1)
[2016-09-03 08:00] LABS: CALCIUM 9.4 mg/dl (8.4-10.2); CREATININE 2.63 mg/dl (0.61-1.24); MAGNESIUM 2.4 mg/dl (1.7-2.5)
--- NOTE | 2016-09-03 08:01 | CONS ---
Date/Time of Note Date/Time of Note DATE: 09/03/16 TIME: 07:59 Consult Date/Type/Reason Admit Date/Time August 30, 2016 at 01:47 Initial Consult Date 08/30/16 Type of Consultation: neph Ordering Provider: SANJUANITA SPAULDING The patient was transferred from intensive care unit to telemetry. The patient is clinically stable. Blood pressures have been well controlled. No acute events noted. poc reviewed with dr. henderson. Dw at bedside and called son. OBJECTIVE: HEENT: Head is normocephalic. NECK: Supple. HEART: Regular rate. LUNGS: Show diminished breath sounds at base. ABDOMEN: Soft, nontender to palpation without rebound or guarding. EXTREMITIES: Negative for clubbing, cyanosis, no edema. DERMATOLOGIC: No rashes. MUSCULOSKELETAL: No joint effusions. NEUROLOGIC: No change in exam. MEDICATIONS: The patient's medications have been reviewed. IMAGING: The patient's renal arterial study shows a stent in the proximal right renal artery on CT, possibly intrastent stenosis. The patient was noted to have elevated right renal velocity indices. Objective Vital Signs Date Time Temp Pulse Resp B/P Pulse Ox O2 Delivery O2 Flow Rate FiO2 09/03/16 07:43 98.3 73 19 156/72 94 09/03/16 00:33 2.0 09/02/16 07:52 Nasal Cannula 08/30/16 15:40 35 Intake and Output 09/02/16 09/02/16 09/03/16 15:00 23:00 07:00 Intake Total 700 ml 290 ml Output Total 300 ml Balance 400 ml 290 ml Results/Medications Result Diagram: 09/03/16 0650 09/02/16 0730 Results 24 hrs Laboratory Tests Test 09/02/16 11:58 09/03/16 06:50 Bedside Glucose 155 White Blood Count 9.8 # Red Blood Count 3.72 L Hemoglobin 10.3 L Hematocrit 33.1 L Mean Corpuscular Volume 89.0 Mean Corpuscular Hemoglobin 27.7 L Mean Corpuscular Hemoglobin Concent 31.1 L Red Cell Distribution Width 12.5 Platelet Count 379 Mean Platelet Volume 11.4 H Neutrophils % 65.4 Lymphocytes % 18.1 Monocytes % 9.9 Eosinophils % 5.1 Basophils % 0.7 Nucleated Red Blood Cells % 0.0 Neutrophils # 6.4 Lymphocytes # 1.8 Monocytes # 1.0 H Eosinophils # 0.5 Basophils # 0.1 Nucleated Red Blood Cells # 0.0 Medications Current Medications Pantoprazole (Protonix Iv) 40 mg DAILY@06 IV Last administered on 09/03/16 05: 48; Admin Dose 40 MG; Start 08/30/16 at 06:00 Heparin Sodium (Porcine) (Heparin (5000 Units/0.5 ml)) 5,000 unit Q8 SC Last administered on 09/03/16 05:52; Admin Dose 5,000 UNIT; Start 08/30/16 at 02:01 Hydralazine HCl (Apresoline) 10 mg Q4H PRN IV ELEVATED blood pressure Last administered on 08/31/16 23:35; Admin Dose 10 MG; Start 08/30/16 at 02:00 Acetaminophen 650 mg 650 mg Q4H PRN [place] PAIN LEVEL 1-3 OR FEVER; Start 08/30/16 at 03:00 Piperacillin Sod/ Tazobactam Sod (Zosyn 2.25gm/ 50ml (Pmx)) 50 ml @ 100 mls/hr Q8 IVPB Last administered on 09/03/16 05:48; Admin Dose 100 MLS/HR; Start 08/30 at 07:30 Clopidogrel Bisulfate (plaVIX) 75 mg DAILY PO Last administered on 09/02/16 08: 31; Admin Dose 75 MG; Start 08/30/16 at 09:00 EZETIMIBE (Zetia) 10 mg DAILY PO Last administered on 09/02/16 08:33; Admin Dose 10 MG; Start 08/30/16 at 09:00 Amiodarone HCl (Cordarone) 100 mg DAILY PO Last administered on 09/02/16 08:33 ; Admin Dose 100 MG; Start 08/31/16 at 09:00 Atorvastatin Calcium (Lipitor) 80 mg QHS PO Last administered on 09/02/16 20:43 ; Admin Dose 80 MG; Start 08/31/16 at 21:00 Aspirin (Aspirin) 81 mg DAILY PO Last administered on 09/02/16 08:32; Admin Dose 81 MG; Start 08/31/16 at 09:00 Zolpidem Tartrate (Ambien) 5 mg HS PRN PO INSOMNIA Last administered on 23:35; Admin Dose 5 MG; Start 08/31/16 at 23:30 Paroxetine HCl (Paxil) 10 mg DAILY PO Last administered on 09/02/16 08:33; Admin Dose 10 MG; Start 09/01/16 at 12:00 Diagnostic Test (Pha) (Accu-Chek) 1 ea Q6 XX Last administered on 09/02/16 12: 04; Admin Dose 1 EA; Start 09/01/16 at 12:00 Carvedilol (Coreg) 6.25 mg BID PO Last administered on 09/02/16 20:45; Admin Dose 6.25 MG; Start 09/01/16 at 11:30 Lorazepam (Ativan) 1 mg Q8H PRN PO ANXIETY Last administered on 09/02/16 21:56 ; Admin Dose 1 MG; Start 09/01/16 at 18:00 Furosemide (Lasix) 20 mg DAILY PO Last administered on 09/02/16 08:38; Admin Dose 20 MG; Start 09/02/16 at 09:00 Isosorbide Dinitrate (Isordil) 5 mg TID PO Last administered on 09/02/16 20:45 ; Admin Dose 5 MG; Start 09/02/16 at 09:00 Hydralazine HCl (Apresoline) 25 mg TID PO Last administered on 09/02/16 20:44; Admin Dose 25 MG; Start 09/02/16 at 09:00 Assessment/Plan Chief Complaint/Hosp Course 1. Nonoliguric acute kidney injury on top of chronic kidney disease, stage IV, with a previous baseline creatinine of 2 to 2.5 mg/dL. Etiology of acute kidney injury is secondary to hemodynamics, possible tubular injury. Possible renal artery stenosis, in-stent thrombosis, is also a contributing factor. The patient's renal function, however, has been improving. We will continue current treatment plan, supportive care, renally dose all meds. 2. Bilateral renal artery stenosis. The patient is status post stenting. An arterial ultrasound suggested possible intrastent stenosis of the right renal artery. We will place a vascular surgery consult for evaluation and continue to monitor closely. may need repeat angioplasty. 3. Hypertensive urgency. Etiology is possibly multifactorial, secondary to anxiety and agitation. Secondary causes such as a paraganglioma or pheochromocytoma is being considered. Plan is to order an MIBG scan if cleared by Radiology. We will continue to monitor. Currently, the patient is off blood pressure medications. We will expect to reintroduce blood pressure medications as the patient becomes more hypertensive. consider adding aldactone in setting of possible MAHESH. 4. Acute hypoxemic respiratory failure secondary to flash pulmonary edema. The patient is currently stable. Continue low-dose diuretic therapy and monitor. may be exacerbated by renal artery restenosis. 5. Acute congestive heart failure exacerbation secondary to flash pulmonary edema. Etiology, is likely hypertensive urgency crisis. At this point, the patient appears euvolemic. Continue low-dose diuretic therapy. Continue to monitor. 6. Mineral bone disorder. Monitor calcium and phosphorus levels. 7. Anemia. Monitor H and H levels. 8. Shock. The patient is currently on IV antibiotics. Continue to monitor. 9. Lung mass. Etiology is unclear. Further workup has been deferred, per family. They have refused biopsy in the past. We will continue to monitor. 10. History of coronary artery disease, status post coronary artery bypass graft. 11. Elevated troponin, possible non-ST elevation myocardial infarction. Continue medical management. 12. History of carotid stenosis status post endarterectomy. Problems: MITCHELL VILLAFUERTE MD Sep 03, 2016 08:01
[2016-09-03] MEDS: EZETIMIBE 10 MG TAB PO SCH (08:40)
[2016-09-03] MEDS: PAROXETINE 10 MG TAB PO SCH (08:41)
[2016-09-03] MEDS: FUROSEMIDE 20 MG TAB PO SCH (08:41)
[2016-09-03] MEDS: ASPIRIN 81 MG TAB PO SCH (08:41)
[2016-09-03] MEDS: CLOPIDOGREL 75 MG TAB PO SCH (08:41)
[2016-09-03] MEDS: ISOSORBIDE DINITRATE 5 MG TAB PO SCH (08:42)
[2016-09-03] MEDS: AMIODARONE 200 MG TAB PO SCH (08:42)
[2016-09-03] MEDS ORDERED: ISOSORBIDE DINITRATE 5 MG TAB PO SCH (09:00)
[2016-09-03] MEDS: ISOSORBIDE DINITRATE 10 MG TAB PO SCH ×3 (09:17→22:36)
--- NOTE | 2016-09-03 09:47 | CONS ---
Date/Time of Note Date/Time of Note DATE: 09/03/16 TIME: 09:42 Assessment/Plan Assessment/Plan Chief Complaint/Hosp Course Acute respiratory failure: Due to recurrent flash pulmonary edema. Resolved Shock: Initially hypertensive, then hypotensive from propofol. Now off pressors. BP overall ok except for one time 190 Acute on chronic renal failure: Cr most recently 2.2. On admission 3.8. He started taking lisinopril so may be the cause. Had a renal ultrasound last week which showed patent renal arteries but now shows possible stenosis on the right concerning for stent thrombosis. Improving Hyperkalemia: up to 7.0 on admission, partially from acidemia, now resolved Acute on chronic systolic heart failure: EF 20%. Flash episodes as above. Close to euvolemic Hypertensive emergency: etiology remains unclear as above. Renal ultrasound suggests that the right renal may be stenosed again (if true would be thrombosis as too early for stenosis) NSTEMI: Trops up to 0.3 in setting of renal failure and respiratory failure. No indication for cardiac cath at this time CAD s/p CABG/PCI: No chest pain Bilateral renal artery stents Carotid stenosis s/p CEA Lung mass -lasix 20mg PO daily -Dr. Bailon to eval ultrasound findings, likely will need repeat angiography -ASA, plavix, lipitor, zetia -coreg 6.25mg BID -increase to isordil 10mg, hydralazine 50mg TID Problems: Consultation Date/Type/Reason Admit Date/Time August 30, 2016 at 01:47 Initial Consult Date 08/30/16 Type of Consultation: Cardiology Reason for Consultation No o/n events. BP on the higher side but no spikes. Referring Provider: SANJUANITA SPAULDING Exam/Review of Systems Vital Signs Vitals Vital Signs Date Time Temp Pulse Resp B/P Pulse Ox O2 Delivery O2 Flow Rate FiO2 09/03/16 08:00 89 09/03/16 07:43 98.3 19 156/72 94 09/03/16 00:33 2.0 09/02/16 07:52 Nasal Cannula 08/30/16 15:40 35 Intake and Output 09/02/16 09/02/16 09/03/16 15:00 23:00 07:00 Intake Total 700 ml 290 ml Output Total 300 ml Balance 400 ml 290 ml Exam Constitutional: alert, oriented Psych: no complaints Head: atraumatic, normocephalic Neck: No jvd Respiratory: clear to auscultation, No crackles/rales Cardiovascular: regular rate and rhythm, No edema Gastrointestinal: soft Neurological: nl mental status, nl speech Results Result Diagram: 09/03/16 0650 09/03/16 0500 Results 24 hrs Laboratory Tests Test 09/02/16 11:58 09/03/16 05:00 09/03/16 06:50 Bedside Glucose 155 Sodium Level 143 Potassium Level 4.2 Chloride Level 108 Carbon Dioxide Level 25 Anion Gap 14 Blood Urea Nitrogen 37 #H Creatinine 2.63 H Glucose Level 105 Calcium Level 9.4 Magnesium Level 2.4 White Blood Count 9.8 # Red Blood Count 3.72 L Hemoglobin 10.3 L Hematocrit 33.1 L Mean Corpuscular Volume 89.0 Mean Corpuscular Hemoglobin 27.7 L Mean Corpuscular Hemoglobin Concent 31.1 L Red Cell Distribution Width 12.5 Platelet Count 379 Mean Platelet Volume 11.4 H Neutrophils % 65.4 Lymphocytes % 18.1 Monocytes % 9.9 Eosinophils % 5.1 Basophils % 0.7 Nucleated Red Blood Cells % 0.0 Neutrophils # 6.4 Lymphocytes # 1.8 Monocytes # 1.0 H Eosinophils # 0.5 Basophils # 0.1 Nucleated Red Blood Cells # 0.0 Medications Medications Current Medications Pantoprazole (Protonix Iv) 40 mg DAILY@06 IV Last administered on 09/03/16 05: 48; Admin Dose 40 MG; Start 08/30/16 at 06:00 Heparin Sodium (Porcine) (Heparin (5000 Units/0.5 ml)) 5,000 unit Q8 SC Last administered on 09/03/16 05:52; Admin Dose 5,000 UNIT; Start 08/30/16 at 02:01 Hydralazine HCl (Apresoline) 10 mg Q4H PRN IV ELEVATED blood pressure Last administered on 08/31/16 23:35; Admin Dose 10 MG; Start 08/30/16 at 02:00 Acetaminophen 650 mg 650 mg Q4H PRN [place] PAIN LEVEL 1-3 OR FEVER; Start 08/30/16 at 03:00 Piperacillin Sod/ Tazobactam Sod (Zosyn 2.25gm/ 50ml (Pmx)) 50 ml @ 100 mls/hr Q8 IVPB Last administered on 09/03/16 05:48; Admin Dose 100 MLS/HR; Start 08/30 at 07:30 Clopidogrel Bisulfate (plaVIX) 75 mg DAILY PO Last administered on 09/03/16 08: 41; Admin Dose 75 MG; Start 08/30/16 at 09:00 EZETIMIBE (Zetia) 10 mg DAILY PO Last administered on 09/03/16 08:40; Admin Dose 10 MG; Start 08/30/16 at 09:00 Amiodarone HCl (Cordarone) 100 mg DAILY PO Last administered on 09/03/16 08:42 ; Admin Dose 100 MG; Start 08/31/16 at 09:00 Atorvastatin Calcium (Lipitor) 80 mg QHS PO Last administered on 09/02/16 20:43 ; Admin Dose 80 MG; Start 08/31/16 at 21:00 Aspirin (Aspirin) 81 mg DAILY PO Last administered on 09/03/16 08:41; Admin Dose 81 MG; Start 08/31/16 at 09:00 Zolpidem Tartrate (Ambien) 5 mg HS PRN PO INSOMNIA Last administered on 23:35; Admin Dose 5 MG; Start 08/31/16 at 23:30 Paroxetine HCl (Paxil) 10 mg DAILY PO Last administered on 09/03/16 08:41; Admin Dose 10 MG; Start 09/01/16 at 12:00 Diagnostic Test (Pha) (Accu-Chek) 1 ea Q6 XX Last administered on 09/02/16 12: 04; Admin Dose 1 EA; Start 09/01/16 at 12:00 Carvedilol (Coreg) 6.25 mg BID PO Last administered on 09/03/16 08:43; Admin Dose 6.25 MG; Start 09/01/16 at 11:30 Lorazepam (Ativan) 1 mg Q8H PRN PO ANXIETY Last administered on 09/02/16 21:56 ; Admin Dose 1 MG; Start 09/01/16 at 18:00 Furosemide (Lasix) 20 mg DAILY PO Last administered on 09/03/16 08:41; Admin Dose 20 MG; Start 09/02/16 at 09:00 Hydralazine HCl (Apresoline) 50 mg TID PO ; Start 09/03/16 at 09:16 Isosorbide Dinitrate (Isordil) 10 mg TID PO ; Start 09/03/16 at 09:17 EMILY TREVIÑO Sep 03, 2016 09:47
--- NOTE | 2016-09-03 10:15 | RADRPT ---
PROCEDURE: XR Chest. CLINICAL INDICATION: Congestive heart failure TECHNIQUE: Single frontal chest x-ray. COMPARISON: 08/31/2016 FINDINGS: The lungs are clear of acute infiltrates, edema, effusions, or masses. Previous hilar vascular conge stion has resolved. There is a 7 cm right hilar mass again noted unchanged. Left-sided dual chamber cardiac pacer is present. Sternotomy wires are seen. Calcific atherosclerosis of the aorta is pres ent.. The cardiomediastinal silhouette is unremarkable. The osseous structures are intact. IMPRESSION: No acute cardiopulmonary disease. Right hilar mass unchanged. Left-sided cardiac pacer in place. RPTAT: QQ .Aamir Nunez MD, Date Time Electronically viewed and signed by .Aamir Nunez MD, on 09/03/2016 10:15 .L/
--- NOTE | 2016-09-03 11:16 | PN ---
Date/Time of Note Date/Time of Note DATE: 09/03/16 TIME: 11:13 Assessment/Plan VTE Prophylaxis VTE Prophylaxis Intervention: ambulation, SCD's Lines/Catheters IV Catheter Type (from [facility]): Central Line Central line still needed: Yes Urinary Cath still in place: No Assessment/Plan Assessment/Plan . Recurrent acute respiratory failure s/p Vent dependence : resolved * Extubated on 08/30/2016 / continue Lasix and breathing treatment / stable on NC * This is usually secondary to flash pulmonary edema, which was thought to be secondary to bilateral renal artery stenosis. * The patient is status post bilateral renal artery stenting, but still presented with another episode of flash pulmonary edema. * Pulmonary is suggesting the possibility of a paraneoplastic syndrome as the patient has a chronic lung mass for which she constantly refuses workup hence we do not know if this is malignant or not. 2. S/p Systemic Shock : ?Cardiogenic versus Septic : resolved / off pressors 3. S/p Elevated troponins : 2/2 CHF and renal failure / trended down / no Cath per Cards 4. Possible Pneumonia contributing to shock 5. Acute on chronic kidney disease: thought to be 2/2 hypoperfusion 2/2 #2, however USS now showing possible instent stenosis of renal aa stent 6. Hypertensive emergency > Shock > Normotension 7. Renal artery stenosis: Status post bilateral stents / Now with possible R sided in-stent stenosis 8. Severe systolic/diastolic heart failure with Isch CM and EF of 20% s/p ICD 9. Known CAD s/p CABG. 10. Carotid stenosis s/p CEA 11. Prediabetes: On review of labs patient has an A1c of 6.3 in May. 12. Chronic Large right perihilar lung mass: patient continues to refuse biopsy. 13. Chronic Anxiety disorder recently started on Paxil PLAN: * Await vascular surgery evaluation for possible in-stent stenosis / may need repeat angiogram / renal function improves daily * Cardiology continues to titrate medications for optimal heart and blood pressure control * Continue serial lab for hemoglobin and electrolyte monitoring and management * Patient continues with excellent glycemic control, continue monitoring and current management continue but is broad-spectrum * Continue broad-spectrum antibiotics for now * Continue supportive care DVT and GI prophylaxis: SCDs, Protonix Subjective 24 Hr Interval Summary Free Text/Dictation doing well Stable on room air ambulant Exam/Review of Systems Vital Signs Vitals Vital Signs Date Time Temp Pulse Resp B/P Pulse Ox O2 Delivery O2 Flow Rate FiO2 09/03/16 08:00 89 09/03/16 07:43 98.3 19 156/72 94 09/03/16 00:33 2.0 09/02/16 07:52 Nasal Cannula 08/30/16 15:40 35 Intake and Output 09/02/16 09/02/16 09/03/16 15:00 23:00 07:00 Intake Total 700 ml 290 ml Output Total 300 ml Balance 400 ml 290 ml Exam General: The patient is well-developed, Not in acute distress. HEENT: Atraumatic, normocephalic. The pupils are equal and round . Neck: Supple with full range of motion. Chest: Normal expansion of the thorax during inspiration Lungs: Clear to auscultation bilaterally Heart: Normal S1-S2, Regular rhythm and rate. Abdomen: Soft , nontender, nondistended , bowel sounds are present. Extremities: Normal to inspection, no edema no cyanosis Neurologic: Normal mental status,The patient is awake, alert and oriented . Results Result Diagram: 09/03/16 0650 09/03/16 0500 Results 24 hrs Laboratory Tests Test 09/02/16 11:58 09/03/16 05:00 09/03/16 06:50 Bedside Glucose 155 Sodium Level 143 Potassium Level 4.2 Chloride Level 108 Carbon Dioxide Level 25 Anion Gap 14 Blood Urea Nitrogen 37 #H Creatinine 2.63 H Glucose Level 105 Calcium Level 9.4 Magnesium Level 2.4 White Blood Count 9.8 # Red Blood Count 3.72 L Hemoglobin 10.3 L Hematocrit 33.1 L Mean Corpuscular Volume 89.0 Mean Corpuscular Hemoglobin 27.7 L Mean Corpuscular Hemoglobin Concent 31.1 L Red Cell Distribution Width 12.5 Platelet Count 379 Mean Platelet Volume 11.4 H Neutrophils % 65.4 Lymphocytes % 18.1 Monocytes % 9.9 Eosinophils % 5.1 Basophils % 0.7 Nucleated Red Blood Cells % 0.0 Neutrophils # 6.4 Lymphocytes # 1.8 Monocytes # 1.0 H Eosinophils # 0.5 Basophils # 0.1 Nucleated Red Blood Cells # 0.0 Medications Medications Current Medications Pantoprazole (Protonix Iv) 40 mg DAILY@06 IV Last administered on 09/03/16t 05: 48; Admin Dose 40 MG; Start 08/30/16 at 06:00 Heparin Sodium (Porcine) (Heparin (5000 Units/0.5 ml)) 5,000 unit Q8 SC Last administered on 09/03/16 05:52; Admin Dose 5,000 UNIT; Start 08/30/16 at 02:01 Hydralazine HCl (Apresoline) 10 mg Q4H PRN IV ELEVATED blood pressure Last administered on 08/31/16 23:35; Admin Dose 10 MG; Start 08/30/16 at 02:00 Acetaminophen 650 mg 650 mg Q4H PRN [place] PAIN LEVEL 1-3 OR FEVER; Start 08/30/16 at 03:00 Piperacillin Sod/ Tazobactam Sod (Zosyn 2.25gm/ 50ml (Pmx)) 50 ml @ 100 mls/hr Q8 IVPB Last administered on 09/03/16 05:48; Admin Dose 100 MLS/HR; Start 08/30 at 07:30 Clopidogrel Bisulfate (plaVIX) 75 mg DAILY PO Last administered on 09/03/16 08: 41; Admin Dose 75 MG; Start 08/30/16 at 09:00 EZETIMIBE (Zetia) 10 mg DAILY PO Last administered on 09/03/16 08:40; Admin Dose 10 MG; Start 08/30/16 at 09:00 Amiodarone HCl (Cordarone) 100 mg DAILY PO Last administered on 09/03/16 08:42 ; Admin Dose 100 MG; Start 08/31/16 at 09:00 Atorvastatin Calcium (Lipitor) 80 mg QHS PO Last administered on 09/02/16 20:43 ; Admin Dose 80 MG; Start 08/31/16 at 21:00 Aspirin (Aspirin) 81 mg DAILY PO Last administered on 09/03/16 08:41; Admin Dose 81 MG; Start 08/31/16 at 09:00 Zolpidem Tartrate (Ambien) 5 mg HS PRN PO INSOMNIA Last administered on 23:35; Admin Dose 5 MG; Start 08/31/16 at 23:30 Paroxetine HCl (Paxil) 10 mg DAILY PO Last administered on 09/03/16 08:41; Admin Dose 10 MG; Start 09/01/16 at 12:00 Diagnostic Test (Pha) (Accu-Chek) 1 ea Q6 XX Last administered on 09/02/16 12: 04; Admin Dose 1 EA; Start 09/01/16 at 12:00 Carvedilol (Coreg) 6.25 mg BID PO Last administered on 09/03/16 08:43; Admin Dose 6.25 MG; Start 09/01/16 at 11:30 Lorazepam (Ativan) 1 mg Q8H PRN PO ANXIETY Last administered on 09/02/16 21:56 ; Admin Dose 1 MG; Start 09/01/16 at 18:00 Furosemide (Lasix) 20 mg DAILY PO Last administered on 09/03/16 08:41; Admin Dose 20 MG; Start 09/02/16 at 09:00 Hydralazine HCl (Apresoline) 50 mg TID PO ; Start 09/03/16 at 09:16 Isosorbide Dinitrate (Isordil) 10 mg TID PO ; Start 09/03/16 at 09:17 SANJUANITA SPAULDING Sep 03, 2016 11:16
--- NOTE | 2016-09-03 14:54 | HP ---
DATE OF ADMISSION: 08/30/2016 TYPE OF CONSULTATION: Vascular surgery consultation. Dear Doctors: Mr. Vacne is a 65-year-old gentleman known to our vascular surgery service secondary to a plethora of medical conditions, who has been admitted to the hospital over the past few months with recurrent issues of flash pulmonary edema and hypertensive emergency. As of recent, the patient was identifi ed to have bilateral renal artery stenosis that were significant and underwent intervention with lashawn nting and balloon angioplasty. Further, the patient has been worked up for any adrenal tumors in ich he did have VMA findings that were mildly elevated, which has been followed by our nephrology co crys. At the moment, the patient denies shortness of breath, chest pain, nausea, vomiting, feve r or chills. He denies lower extremity rest pain. He did on diagnostic studies of arterial renal u ltrasound, had identified some elevation of velocities; however, upon evaluation, no significant lashawn nosis has been identified. REVIEW OF SYSTEMS: A 14-point review performed and negative except what is mentioned in the HPI. PAST MEDICAL HISTORY: Entails chronic kidney disease stage IV, history of bilateral artery stenosis , cardiomyopathy, coronary artery disease, significant bilateral lower extremity atherosclerosis, fl chrissy pulmonary edema, paroxysmal and refractory hypertension, lung mass, coronary artery disease, eje ction fraction of 20%. PAST SURGICAL HISTORY: CABG, bilateral renal artery stenting and balloon angioplasty, status post P CI, status post carotid stenosis and a carotid endarterectomy. SOCIAL HISTORY: Previous smoker, has not smoked for a long time. Denies alcohol or illicit drug us e. FAMILY HISTORY: Positive for hypertension. PHYSICAL EXAMINATION: GENERAL: Alert and oriented x3, no apparent distress. HEENT: Normocephalic, atraumatic. PERRLA, EOMI. Mucosa moist. NECK: Supple. No carotid bruit. PULMONARY: Clear to auscultation bilaterally. No crackles. CARDIOVASCULAR: S1, S2 present. No murmurs. ABDOMEN: Soft, nontender, nondistended. Bowel sounds positive. EXTREMITIES: Lower extremities, palpable femoral pulse, nonpalpable pedal pulse. Motor, sensory in tact. Cap refill 3 seconds. ASSESSMENT AND PLAN: Bilateral renal artery stenosis: It seems the patient continues to have recur rent flash pulmonary edema and hypertensive crisis. The patient has underwent bilateral renal arter y stenting and angioplasty, and upon our diagnostic evaluation bilateral renal artery stents are pat ent with mild increase in velocities. No vascular concern from that perspective. Would recommend f or the patient to undergo lung mass biopsy to further delineate the findings for possible adrenal se creting tumor. However, the patient has currently refused for any lung biopsy and would like to see a physician for possible anxiety as the cause of his events. Optimize vascular status (BP meds, diet, nutrition, exercise, sugar control, antiplatelets). Discussed with the patient's findings, plan and management with a certified school age program teacher and he unders tanrajan. Encouraged the patient to undergo a lung biopsy, allowing us to delineate the findings that he has b een having. Thank you for allowing us to partake in the care of your patient. Please call with any questions. Dictated By: STEPHANIE VERA/LUIS Conf#: [id number] DID#: [id number]
[2016-09-03] MEDS: VANCOMYCIN 1.25 GM in SOD CHLORIDE 0.9% 250 ML IVPB SCH (19:54)
[2016-09-03] MEDS: ATORVASTATIN 10 MG TAB PO SCH (20:44)
[2016-09-03] MEDS: LORAZEPAM 1 MG TAB PO PRN (22:06)
[2016-09-04] VITALS (12 sets, daily range): BP systolic 128–165; BP diastolic 61–79; PULSE 68–84; RESP 18–20
[2016-09-04] MEDS: PANTOPRAZOLE 40 MG INJ IV SCH (05:39)
[2016-09-04] MEDS: PIPER-TAZO 2.25 GM (PMX) 50 ML IVPB SCH ×3 (05:39→21:09)
[2016-09-04] MEDS: HEPARIN 5,000 UNIT/0.5 ML VIAL SC SCH ×3 (05:50→21:04)
[2016-09-04] MEDS: ACCU-CHEK XX SCH ×3 (06:00→11:50)
[2016-09-04 08:01] LABS: ADD SCAN DIFF NO
[2016-09-04 08:08] LABS: BASOPHIL # 0.1 10^3/ul (0.0-0.1); BASOPHILS % 0.8 % (0.0-2.0); EOSINOPHILS # 0.6 10^3/ul (0.0-0.5); EOSINOPHILS % 5.6 % (0.0-7.0); HEMATOCRIT 33.2 % (42.0-52.0); HEMOGLOBIN 10.6 g/dl (14.0-18.0); LYMPHOCYTES % 19.1 % (15.0-51.0); MEAN CORPUSCULAR HEMOGLOBIN 28.3 pg (29.0-33.0); MEAN CORPUSCULAR HGB CONC 31.9 g/dl (32.0-37.0); MEAN CORPUSCULAR VOLUME 88.8 fl (82.0-101.0); MEAN PLATELET VOLUME 11.7 fl (7.4-10.4); MONOCYTE # 1.1 10^3/ul (0.3-0.9); MONOCYTES % 10.5 % (0.0-11.0); NEUTROPHIL # 6.7 10^3/ul (1.6-7.5); NEUTROPHILS % 63.1 % (39.0-77.0); PLATELET COUNT 392 10^3/UL (140-415); RED BLOOD COUNT 3.74 10^6/ul (4.70-6.10); RED CELL DISTRIBUTION WIDTH 12.6 % (11.5-14.5); WHITE BLOOD COUNT 10.6 10^3/ul (4.8-10.8)
[2016-09-04 08:27] LABS: CALCIUM 9.3 mg/dl (8.4-10.2); CREATININE 2.58 mg/dl (0.61-1.24); MAGNESIUM 2.3 mg/dl (1.7-2.5); PHOSPHORUS 4.2 mg/dl (2.5-4.9); POTASSIUM 4.1 mmol/L (3.5-5.1)
[2016-09-04] MEDS: AMIODARONE 200 MG TAB PO SCH (08:59)
[2016-09-04] MEDS: CLOPIDOGREL 75 MG TAB PO SCH (08:59)
[2016-09-04] MEDS: FUROSEMIDE 20 MG TAB PO SCH (09:00)
[2016-09-04] MEDS: ISOSORBIDE DINITRATE 10 MG TAB PO SCH ×3 (09:00→21:02)
[2016-09-04] MEDS: EZETIMIBE 10 MG TAB PO SCH (09:01)
[2016-09-04] MEDS: ASPIRIN 81 MG TAB PO SCH (09:01)
[2016-09-04] MEDS: PAROXETINE 10 MG TAB PO SCH (09:01)
--- NOTE | 2016-09-04 09:27 | CONS ---
Date/Time of Note Date/Time of Note DATE: 09/04/16 TIME: 09:24 Assessment/Plan Assessment/Plan Chief Complaint/Hosp Course Acute respiratory failure: Due to recurrent flash pulmonary edema. Resolved Acute on chronic renal failure: Cr most recently 2.2. On admission 3.8. He started taking lisinopril so may be the cause. Now 2.5 Acute on chronic systolic heart failure: EF 20%. Flash episodes as above. Euvolemic Hypertensive emergency: etiology remains unclear as above. Renal ultrasound suggests that the right renal may be stenosed again (if true would be thrombosis as too early for stenosis) but Dr. Bailon has evaluated and believes the ultrasound is not suggestive of a significant lesion. Nuclear renal scan is planned NSTEMI: Trops up to 0.3 in setting of renal failure and respiratory failure. No indication for cardiac cath at this time Shock: Initially hypertensive, then hypotensive from propofol. Now off pressors. Hyperkalemia: up to 7.0 on admission, partially from acidemia, now resolved CAD s/p CABG/PCI: No chest pain Bilateral renal artery stents Carotid stenosis s/p CEA Lung mass -lasix 20mg PO daily -appreciate evaluation by Dr. Bailon, plan for nuclear renal scan -ASA, plavix, lipitor, zetia -increase to coreg 12.5 mg BID -isordil 10mg, hydralazine 50mg TID (uptitrate next if BP not controlled) Problems: Consultation Date/Type/Reason Admit Date/Time August 30, 2016 at 01:47 Initial Consult Date 08/30/16 Type of Consultation: Cardiology Referring Provider: SANJUANITA SPAULDING 24 HR Interval Summary Free Text/Dictation No o/n events. BP remains on the higher side. Exam/Review of Systems Vital Signs Vitals Vital Signs Date Time Temp Pulse Resp B/P Pulse Ox O2 Delivery O2 Flow Rate FiO2 09/04/16 08:59 84 09/04/16 07:45 97.9 165/78 09/04/16 04:00 18 96 09/03/16 00:33 2.0 09/02/16 07:52 Nasal Cannula Intake and Output 09/03/16 09/03/16 09/04/16 15:00 23:00 07:00 Intake Total 50 ml 800 ml 350 ml Balance 50 ml 800 ml 350 ml Exam Constitutional: alert, oriented Head: atraumatic, normocephalic Neck: No jvd Respiratory: clear to auscultation, No crackles/rales Cardiovascular: regular rate and rhythm, No edema Gastrointestinal: non-tender, soft Neurological: nl mental status, nl speech Results Result Diagram: 09/04/16 0640 09/04/16 0640 Results 24 hrs Laboratory Tests Test 09/04/16 06:40 White Blood Count 10.6 Red Blood Count 3.74 L Hemoglobin 10.6 L Hematocrit 33.2 L Mean Corpuscular Volume 88.8 Mean Corpuscular Hemoglobin 28.3 L Mean Corpuscular Hemoglobin Concent 31.9 L Red Cell Distribution Width 12.6 Platelet Count 392 Mean Platelet Volume 11.7 H Neutrophils % 63.1 Lymphocytes % 19.1 Monocytes % 10.5 Eosinophils % 5.6 Basophils % 0.8 Nucleated Red Blood Cells % 0.0 Neutrophils # 6.7 Lymphocytes # 2.0 Monocytes # 1.1 H Eosinophils # 0.6 H Basophils # 0.1 Nucleated Red Blood Cells # 0.0 Sodium Level 141 Potassium Level 4.1 Chloride Level 108 Carbon Dioxide Level 24 Anion Gap 13 Blood Urea Nitrogen 32 H Creatinine 2.58 H Glucose Level 91 Calcium Level 9.3 Phosphorus Level 4.2 Magnesium Level 2.3 Medications Medications Current Medications Pantoprazole (Protonix Iv) 40 mg DAILY@06 IV Last administered on 09/04/16 05: 39; Admin Dose 40 MG; Start 08/30/16 at 06:00 Heparin Sodium (Porcine) (Heparin (5000 Units/0.5 ml)) 5,000 unit Q8 SC Last administered on 09/04/16 05:50; Admin Dose 5,000 UNIT; Start 08/30/16 at 02:01 Hydralazine HCl (Apresoline) 10 mg Q4H PRN IV ELEVATED blood pressure Last administered on 08/31/16 23:35; Admin Dose 10 MG; Start 08/30/16 at 02:00 Acetaminophen 650 mg 650 mg Q4H PRN [place] PAIN LEVEL 1-3 OR FEVER; Start 08/30/16 at 03:00 Piperacillin Sod/ Tazobactam Sod (Zosyn 2.25gm/ 50ml (Pmx)) 50 ml @ 100 mls/hr Q8 IVPB Last administered on 09/04/16 05:39; Admin Dose 100 MLS/HR; Start 08/30 at 07:30 Clopidogrel Bisulfate (plaVIX) 75 mg DAILY PO Last administered on 09/04/16 08: 59; Admin Dose 75 MG; Start 08/30/16 at 09:00 EZETIMIBE (Zetia) 10 mg DAILY PO Last administered on 09/04/16 09:01; Admin Dose 10 MG; Start 08/30/16 at 09:00 Amiodarone HCl (Cordarone) 100 mg DAILY PO Last administered on 09/04/16 08:59 ; Admin Dose 100 MG; Start 08/31/16 at 09:00 Atorvastatin Calcium (Lipitor) 80 mg QHS PO Last administered on 09/03/16 20:44 ; Admin Dose 80 MG; Start 08/31/16 at 21:00 Aspirin (Aspirin) 81 mg DAILY PO Last administered on 09/04/16 09:01; Admin Dose 81 MG; Start 08/31/16 at 09:00 Zolpidem Tartrate (Ambien) 5 mg HS PRN PO INSOMNIA Last administered on 23:35; Admin Dose 5 MG; Start 08/31/16 at 23:30 Paroxetine HCl (Paxil) 10 mg DAILY PO Last administered on 09/04/16 09:01; Admin Dose 10 MG; Start 09/01/16 at 12:00 Diagnostic Test (Pha) (Accu-Chek) 1 ea Q6 XX Last administered on 09/02/16 12: 04; Admin Dose 1 EA; Start 09/01/16 at 12:00 Lorazepam (Ativan) 1 mg Q8H PRN PO ANXIETY Last administered on 09/03/16 22:06 ; Admin Dose 1 MG; Start 09/01/16 at 18:00 Furosemide (Lasix) 20 mg DAILY PO Last administered on 09/04/16 09:00; Admin Dose 20 MG; Start 09/02/16 at 09:00 Hydralazine HCl (Apresoline) 50 mg TID PO Last administered on 09/04/16 09:00; Admin Dose 50 MG; Start 09/03/16 at 09:16 Isosorbide Dinitrate 10 mg 10 mg TID PO Last administered on 6/4/17at 22:36; Admin Dose 10 MG; Start 09/03/16 at 09:17 Vancomycin HCl/ Sodium Chloride (Vancocin/NS) 250 ml @ 83.333 mls/ hr Q48H IVPB Last administered on 09/03/16t 19:54; Admin Dose 83.333 MLS/HR; Start at 20:00 Carvedilol (Coreg) 12.5 mg BID PO ; Start 09/04/16 at 09:00 EMILY TREVIÑO Sep 04, 2016 09:27
--- NOTE | 2016-09-04 12:14 | PN ---
DATE: 09/04/2016 SUBJECTIVE: The patient is stable, no acute events overnight. No fevers, chills, nausea, or vomiti ng. No shortness of breath. OBJECTIVE: VITAL SIGNS: Blood pressure 165/78, respirations 18, pulse 77, temperature 97.6. HEENT: Head is normocephalic. NECK: Supple. HEART: Regular rate. LUNGS: Show diminished breath sounds at the base. ABDOMEN: Soft, nontender to palpation, no rebound or guarding. EXTREMITIES: Negative for clubbing, cyanosis, no edema. DERMATOLOGIC: No rashes. MUSCULOSKELETAL: No joint effusions. NEUROLOGIC: No change in exam. MEDICATIONS: The patient's medications have been reviewed. LABORATORY DATA: Showed sodium 141, potassium 4.1, BUN 32, creatinine 2.58. White count 10.6, hemo globin 10.6, hematocrit 33.2, platelet count is 392. ASSESSMENT AND PLAN: 1. Nonoliguric acute kidney injury on top of chronic kidney disease stage IV, a previous baseline c reatinine around 2 to 2.5 mg/dL. Etiology of acute kidney injury is secondary to hemodynamics, poss ible ANNE inhibitor effect, questionable tubular injury. The patient's renal function has continued to improve with supportive care and discontinue ANNE inhibitor. We will continue current treatment p alexandria, supportive care, renally dose all meds. Please note a nuclear medicine scan is pending to eval uate the patency of renal arteries. 2. Bilateral renal artery stenosis. The patient is status post stenting. The patient was evaluate d by Dr. Bailon who feels that the renal arteries are patent with appropriate flow. A nuclear me dicine scan is pending to evaluate renal arteries. Will continue to monitor. 3. Hypertensive urgency. Etiology is felt to be multifactorial secondary to anxiety. A secondary cause such as a paraganglioma, pheochromocytoma was a consideration. The patient's CT scan of the a bdomen and pelvis was negative for any adrenal findings. However, the patient does have a lung mass . The patient has refused lung biopsy for definitive diagnosis. MIBG scan can be done to see if th is is a metabolically active tumor; however, this is best served for outpatient setting as it takes 1 week of preparation. At this point, would continue current blood pressure regimen and monitor. 4. Acute congestive heart failure exacerbation secondary to flash pulmonary edema, etiology is seco ndary to hypertensive crisis as stated above. The patient is currently euvolemic. Continue low-dos e diuretic therapy. 5. Acute hypoxemic respiratory failure, resolved. Continue to monitor. 6. Mineral bone disorder. Continue to monitor calcium and phosphorus levels. 7. Anemia. Continue to monitor hemoglobin and hematocrit levels. 8. Status post shock. Etiology is unclear, cardiac versus septic. We will continue antibiotic reg imen. 9. Lung mass, etiology is unclear. Workup is deferred by the patient's family. We will continue t o monitor. 10. History of coronary artery disease, status post PCI. 11. Elevated troponin, [id number] myocardial infarction. Continue medical management. 12. History of carotid stenosis status post endarterectomy. Dictated By: MARILYN SANTOS/LUIS Conf#: [id number] DID#: [id number]
--- NOTE | 2016-09-04 15:35 | CONS ---
Date/Time of Note Date/Time of Note DATE: 09/04/16 TIME: 15:34 Consult Date/Type/Reason Admit Date/Time August 30, 2016 at 01:47 Initial Consult Date 08/30/16 Type of Consultation: Pulmonary Ordering Provider: SANJUANITA SPAULDING Subjective Awake alert oriented talking full complete sentences no shortness of breath. Blood pressure remains stable. Objective Vital Signs Date Time Temp Pulse Resp B/P Pulse Ox O2 Delivery O2 Flow Rate FiO2 09/04/16 13:07 77 09/04/16 11:23 97.1 18 149/68 98 09/03/16 00:33 2.0 09/02/16 07:52 Nasal Cannula Intake and Output 09/03/16 09/03/16 09/04/16 15:00 23:00 07:00 Intake Total 50 ml 800 ml 350 ml Balance 50 ml 800 ml 350 ml Exam GENERAL: Elderly [place] gentleman comfortable at rest no acute distress VITAL SIGNS: per chart NECK: Supple. No JVD or lymphadenopathy. CARDIAC EXAM: S1, S2. No added sounds or murmurs. CHEST: clear bilaterally, No added sounds, rales or wheezes ABDOMEN: Soft, nontender. No guarding or rebound. EXTREMITIES: No cyanosis, clubbing or edema. NEUROLOGIC: Generalized weakness. No focal deficits. Results/Medications Result Diagram: 09/04/16 0640 09/04/16 0640 Results 24 hrs Laboratory Tests Test 09/04/16 06:40 White Blood Count 10.6 Red Blood Count 3.74 L Hemoglobin 10.6 L Hematocrit 33.2 L Mean Corpuscular Volume 88.8 Mean Corpuscular Hemoglobin 28.3 L Mean Corpuscular Hemoglobin Concent 31.9 L Red Cell Distribution Width 12.6 Platelet Count 392 Mean Platelet Volume 11.7 H Neutrophils % 63.1 Lymphocytes % 19.1 Monocytes % 10.5 Eosinophils % 5.6 Basophils % 0.8 Nucleated Red Blood Cells % 0.0 Neutrophils # 6.7 Lymphocytes # 2.0 Monocytes # 1.1 H Eosinophils # 0.6 H Basophils # 0.1 Nucleated Red Blood Cells # 0.0 Sodium Level 141 Potassium Level 4.1 Chloride Level 108 Carbon Dioxide Level 24 Anion Gap 13 Blood Urea Nitrogen 32 H Creatinine 2.58 H Glucose Level 91 Calcium Level 9.3 Phosphorus Level 4.2 Magnesium Level 2.3 Medications Current Medications Pantoprazole (Protonix Iv) 40 mg DAILY@06 IV Last administered on 09/04/16 05: 39; Admin Dose 40 MG; Start 08/30/16 at 06:00 Heparin Sodium (Porcine) (Heparin (5000 Units/0.5 ml)) 5,000 unit Q8 SC Last administered on 09/04/16 14:44; Admin Dose 5,000 UNIT; Start 08/30/16 at 02:01 Hydralazine HCl (Apresoline) 10 mg Q4H PRN IV ELEVATED blood pressure Last administered on 08/31/16 23:35; Admin Dose 10 MG; Start 08/30/16 at 02:00 Acetaminophen 650 mg 650 mg Q4H PRN [place] PAIN LEVEL 1-3 OR FEVER; Start 08/30/16 at 03:00 Piperacillin Sod/ Tazobactam Sod (Zosyn 2.25gm/ 50ml (Pmx)) 50 ml @ 100 mls/hr Q8 IVPB Last administered on 09/04/16 14:42; Admin Dose 100 MLS/HR; Start 08/30 at 07:30 Clopidogrel Bisulfate (plaVIX) 75 mg DAILY PO Last administered on 09/04/16 08: 59; Admin Dose 75 MG; Start 08/30/16 at 09:00 EZETIMIBE (Zetia) 10 mg DAILY PO Last administered on 09/04/16 09:01; Admin Dose 10 MG; Start 08/30/16 at 09:00 Amiodarone HCl (Cordarone) 100 mg DAILY PO Last administered on 09/04/16 08:59 ; Admin Dose 100 MG; Start 08/31/16 at 09:00 Atorvastatin Calcium (Lipitor) 80 mg QHS PO Last administered on 09/03/16 20:44 ; Admin Dose 80 MG; Start 08/31/16 at 21:00 Aspirin (Aspirin) 81 mg DAILY PO Last administered on 09/04/16 09:01; Admin Dose 81 MG; Start 08/31/16 at 09:00 Zolpidem Tartrate (Ambien) 5 mg HS PRN PO INSOMNIA Last administered on 23:35; Admin Dose 5 MG; Start 08/31/16 at 23:30 Paroxetine HCl (Paxil) 10 mg DAILY PO Last administered on 09/04/16 09:01; Admin Dose 10 MG; Start 09/01/16 at 12:00 Diagnostic Test (Pha) (Accu-Chek) 1 ea Q6 XX Last administered on 09/02/16 12: 04; Admin Dose 1 EA; Start 09/01/16 at 12:00 Lorazepam (Ativan) 1 mg Q8H PRN PO ANXIETY Last administered on 09/03/16 22:06 ; Admin Dose 1 MG; Start 09/01/16 at 18:00 Furosemide (Lasix) 20 mg DAILY PO Last administered on 09/04/16 09:00; Admin Dose 20 MG; Start 09/02/16 at 09:00 Hydralazine HCl (Apresoline) 50 mg TID PO Last administered on 09/04/16 12:13; Admin Dose 50 MG; Start 09/03/16 at 09:16 Isosorbide Dinitrate 10 mg 10 mg TID PO Last administered on 09/04/16 12:13; Admin Dose 10 MG; Start 09/03/16 at 09:17 Vancomycin HCl/ Sodium Chloride (Vancocin/NS) 250 ml @ 83.333 mls/ hr Q48H IVPB Last administered on 09/03/16 19:54; Admin Dose 83.333 MLS/HR; Start at 20:00 Carvedilol (Coreg) 12.5 mg BID PO Last administered on 09/04/16 12:12; Admin Dose 12.5 MG; Start 09/04/16 at 09:00 Assessment/Plan Chief Complaint/Hosp Course Assessment 1. Hypoxemic and hypercapnic respiratory failure 2. Renal insufficiency 3. COPD 4. Hx of lung mass diagnosed 2 yrs ago. Patient refused biopsy or treatment. 5. Hx renal artery stenting. Concern for reocclusion although creatinine remains stable Plan 1. Continue o2 2. BDs 3. OOB 4. Renal recommendations pending nuclear study 5. Discussed with family. Patient declining biopsy and treatment for lung mass. Follow-up with me as an outpatient. Problems: MARY BARKER MD, FCCP Sep 04, 2016 15:35
--- NOTE | 2016-09-04 16:06 | PN ---
Date/Time of Note Date/Time of Note DATE: 09/04/16 TIME: 16:02 Assessment/Plan VTE Prophylaxis VTE Prophylaxis Intervention: SCD's Lines/Catheters IV Catheter Type (from [facility]): Peripheral IV Urinary Cath still in place: No Assessment/Plan Assessment/Plan 1. Recurrent pulmonary edema from hypertensive emergency, follow up with cardiology and nephrology for medication adjustment. 2. 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 Patient however refusing any kind of workup. 3. 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 4. History of coronary artery disease, status post bypass surgery. 5. CHF. 6. History of bilateral renal artery stenting. 7. History of cardiac arrhythmia, status post pacemaker placement. Subjective 24 Hr Interval Summary Free Text/Dictation no shortness of breath or chest pain Exam/Review of Systems Vital Signs Vitals Vital Signs Date Time Temp Pulse Resp B/P Pulse Ox O2 Delivery O2 Flow Rate FiO2 09/04/16 13:07 77 09/04/16 11:23 97.1 18 149/68 98 09/03/16 00:33 2.0 09/02/16 07:52 Nasal Cannula Intake and Output 09/03/16 09/03/16 09/04/16 15:00 23:00 07:00 Intake Total 50 ml 800 ml 350 ml Balance 50 ml 800 ml 350 ml Exam Constitutional: alert, oriented, well developed Psych: nl mood/affect, no complaints Head: atraumatic, normocephalic Eyes: EOMI, PERRL, nl conjunctiva, nl lids, nl sclera ENMT: mucosa pink and moist, nl external ears & nose, nl lips & teeth, nl nasal mucosa & septum Neck: non-tender, supple Respiratory: clear to auscultation, normal air movement, No congested cough, No crackles/rales, No diminished breath sounds, No intercostal retraction, No labored breathing, No other, No respirations, No tactile fremitus, No wheezing Cardiovascular: nl pulses, regular rate and rhythm, No S3, No S4, No bruits, No diastolic murmur, No edema, No gallop, No irregular rhythm, No jugular venous distention (JVD), No murmurs/extra sounds, No other, No rub, No systolic murmur Gastrointestinal: nl liver, spleen, non-tender, soft, No ascites, No bowel sounds, No distended, No firm, No hepatomegaly, No mass , No other, No rebound or guarding, No splenomegaly, No surgical scars, No tender Musculoskeletal: nl extremities to inspection Extremities: normal pulses, No calf tenderness, No clubbing, No cyanosis, No edema, No other, No palpable cord, No pitting pedal edema, No tenderness Neurological: BALANCER SCALE II-XII intact, nl mental status, nl speech, nl strength Skin: nl turgor Lymph: nl lymph nodes Results Result Diagram: 09/04/16 0640 09/04/16 0640 Results 24 hrs Laboratory Tests Test 09/04/16 06:40 White Blood Count 10.6 Red Blood Count 3.74 L Hemoglobin 10.6 L Hematocrit 33.2 L Mean Corpuscular Volume 88.8 Mean Corpuscular Hemoglobin 28.3 L Mean Corpuscular Hemoglobin Concent 31.9 L Red Cell Distribution Width 12.6 Platelet Count 392 Mean Platelet Volume 11.7 H Neutrophils % 63.1 Lymphocytes % 19.1 Monocytes % 10.5 Eosinophils % 5.6 Basophils % 0.8 Nucleated Red Blood Cells % 0.0 Neutrophils # 6.7 Lymphocytes # 2.0 Monocytes # 1.1 H Eosinophils # 0.6 H Basophils # 0.1 Nucleated Red Blood Cells # 0.0 Sodium Level 141 Potassium Level 4.1 Chloride Level 108 Carbon Dioxide Level 24 Anion Gap 13 Blood Urea Nitrogen 32 H Creatinine 2.58 H Glucose Level 91 Calcium Level 9.3 Phosphorus Level 4.2 Magnesium Level 2.3 Medications Medications Current Medications Pantoprazole (Protonix Iv) 40 mg DAILY@06 IV Last administered on 09/04/16 05: 39; Admin Dose 40 MG; Start 08/30/16 at 06:00 Heparin Sodium (Porcine) (Heparin (5000 Units/0.5 ml)) 5,000 unit Q8 SC Last administered on 09/04/16 14:44; Admin Dose 5,000 UNIT; Start 08/30/16 at 02:01 Hydralazine HCl (Apresoline) 10 mg Q4H PRN IV ELEVATED blood pressure Last administered on 08/31/16 23:35; Admin Dose 10 MG; Start 08/30/16 at 02:00 Acetaminophen 650 mg 650 mg Q4H PRN [place] PAIN LEVEL 1-3 OR FEVER; Start 08/30/16 at 03:00 Piperacillin Sod/ Tazobactam Sod (Zosyn 2.25gm/ 50ml (Pmx)) 50 ml @ 100 mls/hr Q8 IVPB Last administered on 09/04/16 14:42; Admin Dose 100 MLS/HR; Start 08/30 at 07:30 Clopidogrel Bisulfate (plaVIX) 75 mg DAILY PO Last administered on 09/04/16 08: 59; Admin Dose 75 MG; Start 08/30/16 at 09:00 EZETIMIBE (Zetia) 10 mg DAILY PO Last administered on 09/04/16 09:01; Admin Dose 10 MG; Start 08/30/16 at 09:00 Amiodarone HCl (Cordarone) 100 mg DAILY PO Last administered on 09/04/16 08:59 ; Admin Dose 100 MG; Start 08/31/16 at 09:00 Atorvastatin Calcium (Lipitor) 80 mg QHS PO Last administered on 09/03/16 20:44 ; Admin Dose 80 MG; Start 08/31/16 at 21:00 Aspirin (Aspirin) 81 mg DAILY PO Last administered on 09/04/16 09:01; Admin Dose 81 MG; Start 08/31/16 at 09:00 Zolpidem Tartrate (Ambien) 5 mg HS PRN PO INSOMNIA Last administered on 23:35; Admin Dose 5 MG; Start 08/31/16 at 23:30 Paroxetine HCl (Paxil) 10 mg DAILY PO Last administered on 09/04/16 09:01; Admin Dose 10 MG; Start 09/01/16 at 12:00 Diagnostic Test (Pha) (Accu-Chek) 1 ea Q6 XX Last administered on 09/02/16 12: 04; Admin Dose 1 EA; Start 09/01/16 at 12:00 Lorazepam (Ativan) 1 mg Q8H PRN PO ANXIETY Last administered on 09/03/16 22:06 ; Admin Dose 1 MG; Start 09/01/16 at 18:00 Furosemide (Lasix) 20 mg DAILY PO Last administered on 09/04/16 09:00; Admin Dose 20 MG; Start 09/02/16 at 09:00 Hydralazine HCl (Apresoline) 50 mg TID PO Last administered on 09/04/16 12:13; Admin Dose 50 MG; Start 09/03/16 at 09:16 Isosorbide Dinitrate 10 mg 10 mg TID PO Last administered on 09/04/16 12:13; Admin Dose 10 MG; Start 09/03/16 at 09:17 Vancomycin HCl/ Sodium Chloride (Vancocin/NS) 250 ml @ 83.333 mls/ hr Q48H IVPB Last administered on 09/03/16 19:54; Admin Dose 83.333 MLS/HR; Start at 20:00 Carvedilol (Coreg) 12.5 mg BID PO Last administered on 09/04/16 12:12; Admin Dose 12.5 MG; Start 09/04/16 at 09:00 TRESSA RUIZ MD Sep 04, 2016 16:06
[2016-09-04] MEDS: ATORVASTATIN 10 MG TAB PO SCH (21:01)
[2016-09-04] MEDS: LORAZEPAM 1 MG TAB PO PRN (23:08)
[2016-09-05] VITALS (13 sets, daily range): BP systolic 111–158; BP diastolic 51–78; PULSE 68–76; RESP 16–20
[2016-09-05] MEDS: PIPER-TAZO 2.25 GM (PMX) 50 ML IVPB SCH ×3 (05:37→21:26)
[2016-09-05] MEDS: HEPARIN 5,000 UNIT/0.5 ML VIAL SC SCH ×3 (05:38→21:29)
[2016-09-05] MEDS: PANTOPRAZOLE 40 MG INJ IV SCH (06:21)
[2016-09-05 06:59] LABS: ADD SCAN DIFF NO
[2016-09-05 07:02] LABS: BASOPHIL # 0.1 10^3/ul (0.0-0.1); BASOPHILS % 0.9 % (0.0-2.0); EOSINOPHILS # 0.6 10^3/ul (0.0-0.5); EOSINOPHILS % 5.7 % (0.0-7.0); HEMOGLOBIN 10.7 g/dl (14.0-18.0); LYMPHOCYTES # 1.7 10^3/ul (0.8-2.9); LYMPHOCYTES % 17.5 % (15.0-51.0); MEAN CORPUSCULAR HEMOGLOBIN 28.5 pg (29.0-33.0); MEAN CORPUSCULAR HGB CONC 32.4 g/dl (32.0-37.0); MONOCYTES % 10.4 % (0.0-11.0); NEUTROPHIL # 6.4 10^3/ul (1.6-7.5); NEUTROPHILS % 64.6 % (39.0-77.0); PLATELET COUNT 383 10^3/UL (140-415); RED BLOOD COUNT 3.75 10^6/ul (4.70-6.10); RED CELL DISTRIBUTION WIDTH 12.5 % (11.5-14.5); WHITE BLOOD COUNT 9.9 10^3/ul (4.8-10.8)
[2016-09-05 07:35] LABS: CALCIUM 9.4 mg/dl (8.4-10.2); CREATININE 2.56 mg/dl (0.61-1.24); POTASSIUM 4.2 mmol/L (3.5-5.1)
--- NOTE | 2016-09-05 07:48 | CONS ---
Date/Time of Note Date/Time of Note DATE: 09/05/16 TIME: 07:44 Assessment/Plan Assessment/Plan Chief Complaint/Hosp Course Acute respiratory failure: Due to recurrent flash pulmonary edema. Resolved Acute on chronic renal failure: Cr most recently 2.2. On admission 3.8. He started taking lisinopril so may be the cause. Now 2.5 Acute on chronic systolic heart failure: EF 20%. Flash episodes as above. Euvolemic Hypertensive emergency: etiology remains unclear as above. Renal ultrasound suggests that the right renal may be stenosed again (if true would be thrombosis as too early for stenosis) but Dr. Bailon has evaluated and believes the ultrasound is not suggestive of a significant lesion. Nuclear renal scan was cancelled and pt no longer wants it done. NSTEMI: Trops up to 0.3 in setting of renal failure and respiratory failure. No indication for cardiac cath at this time Shock: Initially hypertensive, then hypotensive from propofol. Now off pressors. Hyperkalemia: up to 7.0 on admission, partially from acidemia, now resolved CAD s/p CABG/PCI: No chest pain Bilateral renal artery stents Carotid stenosis s/p CEA Lung mass -please keep in hospital one more day for med titration. Will aim for overall lower BP (SBP <120) as he can tolerate lower pressures with his cardiomyopathy -increase to isordil 20mg, hydralazine 75mg TID -lasix 20mg PO daily -ASA, plavix, lipitor, zetia -coreg 12.5 mg BID Problems: Consultation Date/Type/Reason Admit Date/Time August 30, 2016 at 01:47 Initial Consult Date 08/30/16 Type of Consultation: Cardiology Referring Provider: SANJUANITA SPAULDING 24 HR Interval Summary Free Text/Dictation nuclear renal scan cancelled yesterday as pt had it last month though different clinical setting this time. Pt actually does not want it anymore anyway. BP has been better overall. Exam/Review of Systems Vital Signs Vitals Vital Signs Date Time Temp Pulse Resp B/P Pulse Ox O2 Delivery O2 Flow Rate FiO2 09/05/16 07:25 97.7 80 19 158/78 98 09/03/16 00:33 2.0 09/02/16 07:52 Nasal Cannula Intake and Output 09/04/16 09/04/16 09/05/16 14:59 22:59 06:59 Intake Total 400 ml 300 ml Balance 400 ml 300 ml Exam Constitutional: alert, oriented Psych: no complaints Head: atraumatic, normocephalic Neck: No jvd Respiratory: clear to auscultation, No crackles/rales Cardiovascular: regular rate and rhythm, No edema Gastrointestinal: non-tender, soft Neurological: nl mental status, nl speech, nl strength Results Result Diagram: 09/05/1662409/05/16 0625 Results 24 hrs Laboratory Tests Test 09/05/16 06:25 White Blood Count 9.9 Red Blood Count 3.75 L Hemoglobin 10.7 L Hematocrit 33.0 L Mean Corpuscular Volume 88.0 Mean Corpuscular Hemoglobin 28.5 L Mean Corpuscular Hemoglobin Concent 32.4 Red Cell Distribution Width 12.5 Platelet Count 383 Mean Platelet Volume 11.0 H Neutrophils % 64.6 Lymphocytes % 17.5 Monocytes % 10.4 Eosinophils % 5.7 Basophils % 0.9 Nucleated Red Blood Cells % 0.0 Neutrophils # 6.4 Lymphocytes # 1.7 Monocytes # 1.0 H Eosinophils # 0.6 H Basophils # 0.1 Nucleated Red Blood Cells # 0.0 Sodium Level 140 Potassium Level 4.2 Chloride Level 106 Carbon Dioxide Level 24 Anion Gap 14 Blood Urea Nitrogen 29 H Creatinine 2.56 H Glucose Level 103 Calcium Level 9.4 Medications Medications Current Medications Pantoprazole (Protonix Iv) 40 mg DAILY@06 IV Last administered on 09/05/16 06: 21; Admin Dose 40 MG; Start 08/30/16 at 06:00 Heparin Sodium (Porcine) (Heparin (5000 Units/0.5 ml)) 5,000 unit Q8 SC Last administered on 09/05/16 05:38; Admin Dose 5,000 UNIT; Start 08/30/16 at 02:01 Hydralazine HCl (Apresoline) 10 mg Q4H PRN IV ELEVATED blood pressure Last administered on 08/31/16 23:35; Admin Dose 10 MG; Start 08/30/16 at 02:00 Acetaminophen 650 mg 650 mg Q4H PRN [place] PAIN LEVEL 1-3 OR FEVER; Start 08/30/16 at 03:00 Piperacillin Sod/ Tazobactam Sod (Zosyn 2.25gm/ 50ml (Pmx)) 50 ml @ 100 mls/hr Q8 IVPB Last administered on 09/05/16 05:37; Admin Dose 100 MLS/HR; Start 08/30 at 07:30 Clopidogrel Bisulfate (plaVIX) 75 mg DAILY PO Last administered on 09/04/16 08: 59; Admin Dose 75 MG; Start 08/30/16 at 09:00 EZETIMIBE (Zetia) 10 mg DAILY PO Last administered on 09/04/16 09:01; Admin Dose 10 MG; Start 08/30/16 at 09:00 Amiodarone HCl (Cordarone) 100 mg DAILY PO Last administered on 09/04/16 08:59 ; Admin Dose 100 MG; Start 08/31/16 at 09:00 Atorvastatin Calcium (Lipitor) 80 mg QHS PO Last administered on 09/04/16 21:01 ; Admin Dose 80 MG; Start 08/31/16 at 21:00 Aspirin (Aspirin) 81 mg DAILY PO Last administered on 09/04/16 09:01; Admin Dose 81 MG; Start 08/31/16 at 09:00 Zolpidem Tartrate (Ambien) 5 mg HS PRN PO INSOMNIA Last administered on 23:35; Admin Dose 5 MG; Start 08/31/16 at 23:30 Paroxetine HCl (Paxil) 10 mg DAILY PO Last administered on 09/04/16 09:01; Admin Dose 10 MG; Start 09/01/16 at 12:00 Lorazepam (Ativan) 1 mg Q8H PRN PO ANXIETY Last administered on 09/04/16 23:08 ; Admin Dose 1 MG; Start 09/01/16 at 18:00 Furosemide 20 mg 20 mg DAILY PO Last administered on 09/04/16 09:00; Admin Dose 20 MG; Start 09/02/16 at 09:00 Vancomycin HCl/ Sodium Chloride (Vancocin/NS) 250 ml @ 83.333 mls/ hr Q48H IVPB Last administered on 09/03/16 19:54; Admin Dose 83.333 MLS/HR; Start at 20:00 Carvedilol (Coreg) 12.5 mg BID PO Last administered on 09/04/16 21:03; Admin Dose 12.5 MG; Start 09/04/16 at 09:00 Hydralazine HCl (Apresoline) 75 mg TID PO ; Start 09/05/16 at 09:00 Isosorbide Dinitrate (Isordil) 20 mg TID PO ; Start 09/05/16 at 09:00 EMILY TREVIÑO Sep 05, 2016 07:48
[2016-09-05] MEDS ORDERED: ISOSORBIDE DINITRATE 10 MG TAB PO SCH (09:00)
[2016-09-05] MEDS: ASPIRIN 81 MG TAB PO SCH (09:03)
[2016-09-05] MEDS: FUROSEMIDE 20 MG TAB PO SCH (09:03)
[2016-09-05] MEDS: CLOPIDOGREL 75 MG TAB PO SCH (09:03)
[2016-09-05] MEDS: PAROXETINE 10 MG TAB PO SCH (09:04)
[2016-09-05] MEDS: ISOSORBIDE DINITRATE 20 MG TAB PO SCH ×3 (09:04→21:26)
[2016-09-05] MEDS: AMIODARONE 200 MG TAB PO SCH (09:05)
[2016-09-05] MEDS: EZETIMIBE 10 MG TAB PO SCH (09:05)
--- NOTE | 2016-09-05 12:06 | PN ---
DATE: 09/05/2016 SUBJECTIVE: The patient is stable, no acute events overnight. No fevers, chills, nausea, vomiting. OBJECTIVE: VITAL SIGNS: Blood pressure 158/78, respirations 19, pulse 80, temperature 97.7. HEENT: Head is normocephalic. NECK: Supple. HEART: Regular rate. LUNGS: Show diminished breath sounds at the base. ABDOMEN: Soft, nontender to palpation without rebound or guarding. EXTREMITIES: Negative for clubbing, cyanosis, no edema. DERMATOLOGIC: No rashes. MUSCULOSKELETAL: No joint effusions. NEUROLOGIC: No change in exam. MEDICATIONS: The patient's medications have been reviewed. LABORATORY DATA: White count 9.9, hemoglobin 10.7, hematocrit 33.0, platelet count is 383. Sodium 140, potassium 4.2, BUN 29, creatinine 2.56. ASSESSMENT AND PLAN: 1. Nonoliguric acute kidney injury on top of chronic kidney disease stage IV with previous baseline creatinine between 2 to 2.5 mg/dL. Etiology of acute kidney injury is secondary to hemodynamics, A CE inhibitor effect. The patient's renal function has been improving with supportive care. At this point, we will continue current treatment plan, supportive care and renally dose all medications. 2. Bilateral renal artery stenosis. The patient is status post stenting. Dr. Bailon evaluated the patient, and at this point feels the renal arteries are patent with appropriate flow. Will cont inue to monitor. 3. Hypertensive urgency. Etiology is multifactorial secondary to anxiety, with questionable paraga nglioma. Pheochromocytoma was a consideration. The patient, however, has refused biopsy of his und erlying lung mass and an MIBG scan. Would need to be done in an outpatient setting to evaluate for metabolically active tumor. At this point, agree with cardiology with up titrating blood pressure m edications to maintain systolic pressures at baseline below 120. Will monitor renal function closel y. 4. Acute congestive heart failure exacerbation secondary to flash pulmonary edema, etiology seconda ry to hypertensive crisis. The patient is currently euvolemic. Continue current medical management . 5. Mineral bone disorder. Continue to monitor calcium and phosphorus levels. 6. Anemia. Continue to monitor hemoglobin and hematocrit levels. 7. Lung mass, etiology is unclear. Workup is being deferred. Per family, patient does not wish bi opsy. 8. History of coronary artery disease, status post percutaneous coronary intervention. Continue med ical management. 9. Elevated troponin, non-ST elevated myocardial infarction. Continue current treatment plan 10. Status post acute respiratory failure. 11. Status post shock. Dictated By: MARILYN SANTOS/LUIS Conf#: [id number] DID#: [id number] CC: KARYNA SANCHEZ MD;*EndCC*
--- NOTE | 2016-09-05 12:52 | CONS ---
Date/Time of Note Date/Time of Note DATE: 09/05/16 TIME: 12:51 Consult Date/Type/Reason Admit Date/Time August 30, 2016 at 01:47 Initial Consult Date 08/30/16 Type of Consultation: Pulmonary Ordering Provider: SANJUANITA SPAULDING Subjective Patient stable this morning awake alert oriented no respiratory distress Objective Vital Signs Date Time Temp Pulse Resp B/P Pulse Ox O2 Delivery O2 Flow Rate FiO2 09/05/16 12:47 75 09/05/16 11:16 97.9 20 111/51 99 09/03/16 00:33 2.0 09/02/16 07:52 Nasal Cannula Intake and Output 09/04/16 09/04/16 09/05/16 15:00 23:00 07:00 Intake Total 400 ml 300 ml Balance 400 ml 300 ml Exam GENERAL: VITAL SIGNS: per chart NECK: Supple. No JVD or lymphadenopathy. CARDIAC EXAM: S1, S2. No added sounds or murmurs. CHEST: clear bilaterally, No added sounds, rales or wheezes ABDOMEN: Soft, nontender. No guarding or rebound. EXTREMITIES: No cyanosis, clubbing or edema. NEUROLOGIC: Generalized weakness. No focal deficits. Results/Medications Result Diagram: 09/05/16 0625 09/05/16 0625 Results 24 hrs Laboratory Tests Test 09/05/16 06:25 White Blood Count 9.9 Red Blood Count 3.75 L Hemoglobin 10.7 L Hematocrit 33.0 L Mean Corpuscular Volume 88.0 Mean Corpuscular Hemoglobin 28.5 L Mean Corpuscular Hemoglobin Concent 32.4 Red Cell Distribution Width 12.5 Platelet Count 383 Mean Platelet Volume 11.0 H Neutrophils % 64.6 Lymphocytes % 17.5 Monocytes % 10.4 Eosinophils % 5.7 Basophils % 0.9 Nucleated Red Blood Cells % 0.0 Neutrophils # 6.4 Lymphocytes # 1.7 Monocytes # 1.0 H Eosinophils # 0.6 H Basophils # 0.1 Nucleated Red Blood Cells # 0.0 Sodium Level 140 Potassium Level 4.2 Chloride Level 106 Carbon Dioxide Level 24 Anion Gap 14 Blood Urea Nitrogen 29 H Creatinine 2.56 H Glucose Level 103 Calcium Level 9.4 Medications Current Medications Pantoprazole (Protonix Iv) 40 mg DAILY@06 IV Last administered on 09/05/16t 06: 21; Admin Dose 40 MG; Start 08/30/16 at 06:00 Heparin Sodium (Porcine) (Heparin (5000 Units/0.5 ml)) 5,000 unit Q8 SC Last administered on 09/05/16 05:38; Admin Dose 5,000 UNIT; Start 08/30/16 at 02:01 Hydralazine HCl (Apresoline) 10 mg Q4H PRN IV ELEVATED blood pressure Last administered on 08/31/16 23:35; Admin Dose 10 MG; Start 08/30/16 at 02:00 Acetaminophen 650 mg 650 mg Q4H PRN [place] PAIN LEVEL 1-3 OR FEVER; Start 08/30/16 at 03:00 Piperacillin Sod/ Tazobactam Sod (Zosyn 2.25gm/ 50ml (Pmx)) 50 ml @ 100 mls/hr Q8 IVPB Last administered on 09/05/16 05:37; Admin Dose 100 MLS/HR; Start 08/30 at 07:30 Clopidogrel Bisulfate (plaVIX) 75 mg DAILY PO Last administered on 09/05/16 09: 03; Admin Dose 75 MG; Start 08/30/16 at 09:00 EZETIMIBE (Zetia) 10 mg DAILY PO Last administered on 09/05/16 09:05; Admin Dose 10 MG; Start 08/30/16 at 09:00 Amiodarone HCl (Cordarone) 100 mg DAILY PO Last administered on 09/05/16 09:05 ; Admin Dose 100 MG; Start 08/31/16 at 09:00 Atorvastatin Calcium (Lipitor) 80 mg QHS PO Last administered on 09/04/16 21:01 ; Admin Dose 80 MG; Start 08/31/16 at 21:00 Aspirin (Aspirin) 81 mg DAILY PO Last administered on 09/05/16 09:03; Admin Dose 81 MG; Start 08/31/16 at 09:00 Zolpidem Tartrate (Ambien) 5 mg HS PRN PO INSOMNIA Last administered on 23:35; Admin Dose 5 MG; Start 08/31/16 at 23:30 Paroxetine HCl (Paxil) 10 mg DAILY PO Last administered on 09/05/16 09:04; Admin Dose 10 MG; Start 09/01/16 at 12:00 Lorazepam (Ativan) 1 mg Q8H PRN PO ANXIETY Last administered on 09/04/16 23:08 ; Admin Dose 1 MG; Start 09/01/16 at 18:00 Furosemide 20 mg 20 mg DAILY PO Last administered on 09/05/16 09:03; Admin Dose 20 MG; Start 09/02/16 at 09:00 Vancomycin HCl/ Sodium Chloride (Vancocin/NS) 250 ml @ 83.333 mls/ hr Q48H IVPB Last administered on 09/03/16 19:54; Admin Dose 83.333 MLS/HR; Start at 20:00 Carvedilol (Coreg) 12.5 mg BID PO Last administered on 09/05/16 09:03; Admin Dose 12.5 MG; Start 09/04/16 at 09:00 Hydralazine HCl (Apresoline) 75 mg TID PO Last administered on 09/05/16 09:04; Admin Dose 75 MG; Start 09/05/16 at 09:00 Isosorbide Dinitrate (Isordil) 20 mg TID PO Last administered on 09/05/16 09:04 ; Admin Dose 20 MG; Start 09/05/16 at 09:00 Assessment/Plan Chief Complaint/Hosp Course Assessment 1. Hypoxemic and hypercapnic respiratory failure 2. Renal insufficiency 3. COPD 4. Hx of lung mass diagnosed 2 yrs ago. Patient refused biopsy or treatment. 5. Hx renal artery stenting. Discussed with vascular surgery no evidence of occlusion patient renal function remained stable blood pressure stable Plan 1. Continue o2 2. BDs 3. OOB 4. Renal recommendations pending nuclear study 5. Discussed with family. Patient declining biopsy and treatment for lung mass. Discharge planning okay with consultants Problems: MARY BARKER MD, [facility] Sep 05, 2016 12:52
--- NOTE | 2016-09-05 14:50 | PN ---
Date/Time of Note Date/Time of Note DATE: 09/05/16 TIME: 14:46 Assessment/Plan VTE Prophylaxis VTE Prophylaxis Intervention: heparin Lines/Catheters IV C[facility]ter Type (from [facility]): Saline Lock Urinary Cath still in place: No Assessment/Plan Assessment/Plan 1. Recurrent pulmonary edema from hypertensive emergency/diastolic congestive heart failure, stable, follow up with cardiology and nephrology for medication adjustment. 2. 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 Patient however refusing any kind of workup. 3. 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 4. History of coronary artery disease, status post bypass surgery. 5. History of bilateral renal artery stenting. 6. History of cardiac arrhythmia, status post pacemaker placement. Subjective 24 Hr Interval Summary Free Text/Dictation no shortness of breath. no event Exam/Review of Systems Vital Signs Vitals Vital Signs Date Time Temp Pulse Resp B/P Pulse Ox O2 Delivery O2 Flow Rate FiO2 09/05/16 13:36 70 130/62 Room Air 09/05/16 11:16 97.9 20 99 09/03/16 00:33 2.0 Intake and Output 09/04/16 09/04/16 09/05/16 15:00 23:00 07:00 Intake Total 400 ml 300 ml Balance 400 ml 300 ml Exam Constitutional: alert, oriented, well developed Psych: nl mood/affect, no complaints Head: atraumatic, normocephalic Eyes: EOMI, nl conjunctiva, nl lids ENMT: nl external ears & nose, nl lips & teeth, nl nasal mucosa & septum Neck: non-tender, supple Respiratory: clear to auscultation, normal air movement, No congested cough, No crackles/rales, No diminished breath sounds, No intercostal retraction, No labored breathing, No other, No respirations, No tactile fremitus, No wheezing Cardiovascular: nl pulses, regular rate and rhythm, No S3, No S4, No bruits, No diastolic murmur, No edema, No gallop, No irregular rhythm, No jugular venous distention (JVD), No murmurs/extra sounds, No other, No rub, No systolic murmur Gastrointestinal: nl liver, spleen, non-tender, soft, No ascites, No bowel sounds, No distended, No firm, No hepatomegaly, No mass , No other, No rebound or guarding, No splenomegaly, No surgical scars, No tender Musculoskeletal: nl extremities to inspection Extremities: normal pulses, No calf tenderness, No clubbing, No cyanosis, No edema, No other, No palpable cord, No pitting pedal edema, No tenderness Neurological: C[employer]IFIED [employer] II-XII intact, nl mental status, nl speech, nl strength Skin: nl turgor Lymph: nl lymph nodes Results Result Diagram: 09/05/1625 09/05/16 0625 Results 24 hrs Laboratory Tests Test 09/05/16 06:25 White Blood Count 9.9 Red Blood Count 3.75 L Hemoglobin 10.7 L Hematocrit 33.0 L Mean Corpuscular Volume 88.0 Mean Corpuscular Hemoglobin 28.5 L Mean Corpuscular Hemoglobin Concent 32.4 Red Cell Distribution Width 12.5 Platelet Count 383 Mean Platelet Volume 11.0 H Neutrophils % 64.6 Lymphocytes % 17.5 Monocytes % 10.4 Eosinophils % 5.7 Basophils % 0.9 Nucleated Red Blood Cells % 0.0 Neutrophils # 6.4 Lymphocytes # 1.7 Monocytes # 1.0 H Eosinophils # 0.6 H Basophils # 0.1 Nucleated Red Blood Cells # 0.0 Sodium Level 140 Potassium Level 4.2 Chloride Level 106 Carbon Dioxide Level 24 Anion Gap 14 Blood Urea Nitrogen 29 H Creatinine 2.56 H Glucose Level 103 Calcium Level 9.4 Medications Medications Current Medications Pantoprazole (Protonix Iv) 40 mg DAILY@06 IV Last administered on 09/05/16 06: 21; Admin Dose 40 MG; Start 08/30/16 at 06:00 Heparin Sodium (Porcine) (Heparin (5000 Units/0.5 ml)) 5,000 unit Q8 SC Last administered on 09/05/16 13:52; Admin Dose 5,000 UNIT; Start 08/30/16 at 02:01 Hydralazine HCl (Apresoline) 10 mg Q4H PRN IV ELEVATED blood pressure Last administered on 08/31/16 23:35; Admin Dose 10 MG; Start 08/30/16 at 02:00 Acetaminophen 650 mg 650 mg Q4H PRN [place] PAIN LEVEL 1-3 OR FEVER; Start 08/30/16 at 03:00 Piperacillin Sod/ Tazobactam Sod (Zosyn 2.25gm/ 50ml (Pmx)) 50 ml @ 100 mls/hr Q8 IVPB Last administered on 09/05/16 13:44; Admin Dose 100 MLS/HR; Start 08/30 at 07:30 Clopidogrel Bisulfate (plaVIX) 75 mg DAILY PO Last administered on 09/05/16 09: 03; Admin Dose 75 MG; Start 08/30/16 at 09:00 EZETIMIBE (Zetia) 10 mg DAILY PO Last administered on 09/05/16 09:05; Admin Dose 10 MG; Start 08/30/16 at 09:00 Amiodarone HCl (Cordarone) 100 mg DAILY PO Last administered on 09/05/16 09:05 ; Admin Dose 100 MG; Start 08/31/16 at 09:00 Atorvastatin Calcium (Lipitor) 80 mg QHS PO Last administered on 09/04/16 21:01 ; Admin Dose 80 MG; Start 08/31/16 at 21:00 Aspirin (Aspirin) 81 mg DAILY PO Last administered on 09/05/16 09:03; Admin Dose 81 MG; Start 08/31/16 at 09:00 Zolpidem Tartrate (Ambien) 5 mg HS PRN PO INSOMNIA Last administered on 23:35; Admin Dose 5 MG; Start 08/31/16 at 23:30 Paroxetine HCl (Paxil) 10 mg DAILY PO Last administered on 09/05/16 09:04; Admin Dose 10 MG; Start 09/01/16 at 12:00 Lorazepam (Ativan) 1 mg Q8H PRN PO ANXIETY Last administered on 09/04/16 23:08 ; Admin Dose 1 MG; Start 09/01/16 at 18:00 Furosemide 20 mg 20 mg DAILY PO Last administered on 09/05/16 09:03; Admin Dose 20 MG; Start 09/02/16 at 09:00 Vancomycin HCl/ Sodium Chloride (Vancocin/NS) 250 ml @ 83.333 mls/ hr Q48H IVPB Last administered on 09/03/16 19:54; Admin Dose 83.333 MLS/HR; Start at 20:00 Carvedilol (Coreg) 12.5 mg BID PO Last administered on 09/05/16 09:03; Admin Dose 12.5 MG; Start 09/04/16 at 09:00 Hydralazine HCl (Apresoline) 75 mg TID PO Last administered on 09/05/16 13:38; Admin Dose 75 MG; Start 09/05/16 at 09:00 Isosorbide Dinitrate (Isordil) 20 mg TID PO Last administered on 09/05/16 13:38 ; Admin Dose 20 MG; Start 09/05/16 at 09:00 TRESSA RUIZ MD Sep 05, 2016 14:50
[2016-09-05] MEDS: VANCOMYCIN 1.25 GM in SOD CHLORIDE 0.9% 250 ML IVPB SCH ×2 (20:00→21:31)
[2016-09-05] MEDS ORDERED: ATORVASTATIN 80 MG TAB PO SCH (21:24)
[2016-09-06] VITALS (9 sets, daily range): BP systolic 123–155; BP diastolic 57–72; PULSE 75–80; RESP 17–19
[2016-09-06] MEDS: PIPER-TAZO 2.25 GM (PMX) 50 ML IVPB SCH ×2 (06:05→13:33)
[2016-09-06] MEDS: PANTOPRAZOLE 40 MG INJ IV SCH (06:06)
[2016-09-06] MEDS: HEPARIN 5,000 UNIT/0.5 ML VIAL SC SCH ×2 (06:08→13:43)
--- NOTE | 2016-09-06 07:04 | CONS ---
Date/Time of Note Date/Time of Note DATE: 09/06/16 TIME: 07:02 Assessment/Plan Assessment/Plan Chief Complaint/Hosp Course Acute respiratory failure: Due to recurrent flash pulmonary edema. Resolved Acute on chronic renal failure: Cr most recently 2.2. On admission 3.8. He started taking lisinopril so may be the cause. Now 2.5 Acute on chronic systolic heart failure: EF 20%. Flash episodes as above. Euvolemic Hypertensive emergency: etiology remains unclear as above. Renal ultrasound suggests that the right renal may be stenosed again (if true would be thrombosis as too early for stenosis) but Dr. Bailon has evaluated and believes the ultrasound is not suggestive of a significant lesion. Nuclear renal scan was cancelled and pt no longer wants it done. NSTEMI: Trops up to 0.3 in setting of renal failure and respiratory failure. No indication for cardiac cath at this time Shock: Initially hypertensive, then hypotensive from propofol. Now off pressors. Hyperkalemia: up to 7.0 on admission, partially from acidemia, now resolved CAD s/p CABG/PCI: No chest pain Bilateral renal artery stents Carotid stenosis s/p CEA Lung mass -ok for discharge -med changes are as follows: -coreg increased to 12.5mg BID -hydralazine 100mg TID -isordil 20mg TID -nifedipine stopped -remainder of meds are unchanged -f/u with me next week -lasix 20mg PO daily -ASA, plavix, lipitor, zetia Problems: Consultation Date/Type/Reason Admit Date/Time August 30, 2016 at 01:47 Initial Consult Date 08/30/16 Type of Consultation: Cardiology Referring Provider: SANJUANITA SPAULDING 24 HR Interval Summary Free Text/Dictation No o/n events. Would like to go home. BP has been controlled Exam/Review of Systems Vital Signs Vitals Vital Signs Date Time Temp Pulse Resp B/P Pulse Ox O2 Delivery O2 Flow Rate FiO2 09/06/16 04:19 98.4 75 17 143/66 97 09/05/16 13:36 Room Air 09/03/16 00:33 2.0 Intake and Output 09/05/16 09/05/16 09/06/16 15:00 23:00 07:00 Intake Total 50 ml 1010 ml 350 ml Balance 50 ml 1010 ml 350 ml Exam Constitutional: alert, oriented Psych: no complaints Head: atraumatic, normocephalic Neck: supple, No jvd Respiratory: clear to auscultation, No crackles/rales Cardiovascular: regular rate and rhythm, No edema Gastrointestinal: non-tender, soft Neurological: nl mental status, nl speech Results Result Diagram: 09/05/1662409/05/16624 Medications Medications Current Medications Pantoprazole (Protonix Iv) 40 mg DAILY@06 IV Last administered on 09/06/16 06: 06; Admin Dose 40 MG; Start 08/30/16 at 06:00 Heparin Sodium (Porcine) (Heparin (5000 Units/0.5 ml)) 5,000 unit Q8 SC Last administered on 09/06/16 06:08; Admin Dose 5,000 UNIT; Start 08/30/16 at 02:01 Hydralazine HCl (Apresoline) 10 mg Q4H PRN IV ELEVATED blood pressure Last administered on 08/31/16 23:35; Admin Dose 10 MG; Start 08/30/16 at 02:00 Acetaminophen 650 mg 650 mg Q4H PRN [place] PAIN LEVEL 1-3 OR FEVER; Start 08/30/16 at 03:00 Piperacillin Sod/ Tazobactam Sod (Zosyn 2.25gm/ 50ml (Pmx)) 50 ml @ 100 mls/hr Q8 IVPB Last administered on 09/06/16 06:05; Admin Dose 100 MLS/HR; Start 08/30 at 07:30 Clopidogrel Bisulfate (plaVIX) 75 mg DAILY PO Last administered on 09/05/16 09: 03; Admin Dose 75 MG; Start 08/30/16 at 09:00 EZETIMIBE (Zetia) 10 mg DAILY PO Last administered on 09/05/16 09:05; Admin Dose 10 MG; Start 08/30/16 at 09:00 Amiodarone HCl (Cordarone) 100 mg DAILY PO Last administered on 09/05/16 09:05 ; Admin Dose 100 MG; Start 08/31/16 at 09:00 Aspirin (Aspirin) 81 mg DAILY PO Last administered on 09/05/16 09:03; Admin Dose 81 MG; Start 08/31/16 at 09:00 Zolpidem Tartrate (Ambien) 5 mg HS PRN PO INSOMNIA Last administered on 23:35; Admin Dose 5 MG; Start 08/31/16 at 23:30 Paroxetine HCl (Paxil) 10 mg DAILY PO Last administered on 09/05/16 09:04; Admin Dose 10 MG; Start 09/01/16 at 12:00 Lorazepam (Ativan) 1 mg Q8H PRN PO ANXIETY Last administered on 09/04/16 23:08 ; Admin Dose 1 MG; Start 09/01/16 at 18:00 Furosemide 20 mg 20 mg DAILY PO Last administered on 09/05/16 09:03; Admin Dose 20 MG; Start 09/02/16 at 09:00 Vancomycin HCl/ Sodium Chloride (Vancocin/NS) 250 ml @ 83.333 mls/ hr Q48H IVPB Last administered on 09/03/16 19:54; Admin Dose 83.333 MLS/HR; Start at 20:00 Carvedilol (Coreg) 12.5 mg BID PO Last administered on 09/05/16 21:24; Admin Dose 12.5 MG; Start 09/04/16 at 09:00 Isosorbide Dinitrate (Isordil) 20 mg TID PO Last administered on 09/05/16 21:26 ; Admin Dose 20 MG; Start 09/05/16 at 09:00 Atorvastatin Calcium (Lipitor) 80 mg QHS PO ; Start 09/05/16 at 21:24 Hydralazine HCl (Apresoline) 100 mg TID PO ; Start 09/06/16 at 09:00 EMILY TREVIÑO Sep 06, 2016 07:04
[2016-09-06] MEDS: ISOSORBIDE DINITRATE 20 MG TAB PO SCH ×2 (09:27→13:32)
[2016-09-06] MEDS: AMIODARONE 200 MG TAB PO SCH (09:27)
[2016-09-06] MEDS: EZETIMIBE 10 MG TAB PO SCH (09:28)
[2016-09-06] MEDS: ASPIRIN 81 MG TAB PO SCH (09:28)
[2016-09-06] MEDS: PAROXETINE 10 MG TAB PO SCH (09:28)
[2016-09-06] MEDS: FUROSEMIDE 20 MG TAB PO SCH (09:28)
[2016-09-06] MEDS: CLOPIDOGREL 75 MG TAB PO SCH (09:29)
--- NOTE | 2016-09-06 09:55 | PN ---
DATE: 09/06/2016 SUBJECTIVE: The patient is stable, no acute events overnight. No fevers, chills, nausea, vomiting. OBJECTIVE: VITAL SIGNS: Blood pressure 155/72, respiration 17, pulse 71, temperature 98.4. HEENT: Head is normocephalic. NECK: Supple. HEART: Regular rate. LUNGS: Show diminished breath sounds at base, otherwise clear. ABDOMEN: Soft, nontender to palpation without rebound or guarding. EXTREMITIES: Negative for clubbing, cyanosis. No edema. DERMATOLOGIC: No rashes. MUSCULOSKELETAL: No joint effusions. NEUROLOGIC: No change in exam. MEDICATIONS: Reviewed. LABORATORY DATA: Have been reviewed. No new labs. ASSESSMENT AND PLAN: 1. Nonoliguric acute kidney injury on top of chronic kidney disease stage IV with previous baseline creatinine between 2 to 2.5 mg/dL. Etiology of acute kidney injury is secondary to hemodynamics, a ngiotensin-converting enzyme inhibitor effect. The patient's renal function has slowly been improvi ng. At this point, continue current treatment plan, supportive care, renally dose all medications. 2. Bilateral renal artery stenosis, status post stenting. The patient was reevaluated by Dr. Harvinder hernandez. No plans for intervention at this time, as renal arteries are patent. 3. Hypertensive urgency. Etiology is possibly multifactorial, likely from anxiety, questionable th e paraganglioma. The patient has underlying lung mass, but is refusing biopsy. At this point, cont inue current blood pressure regimen. Adjusted by cardiology. Monitor renal function closely. 4. Acute congestive heart failure exacerbation secondary to flash pulmonary edema. The patient is currently euvolemic. Continue medical management. 5. Mineral bone disorder. Continue to monitor calcium and phosphorus levels. 6. Anemia. Monitor hemoglobin and hematocrit levels. 7. Lung mass, unclear etiology. Workup is being deferred per family request. 8. History of coronary artery disease, status post percutaneous coronary intervention. Continue me dical management. 9. Elevated troponin, non-ST myocardial infarction. Continue current treatment plan. 10. Acute respiratory failure. 11. Status post shock. Dictated By: MARILYN SANTOS/NTS Conf#: [id number] DID#: [id number]
--- NOTE | 2016-09-06 11:24 | CONS ---
Date/Time of Note Date/Time of Note DATE: 09/06/16 TIME: 11:23 Consult Date/Type/Reason Admit Date/Time August 30, 2016 at 01:47 Initial Consult Date 08/30/16 Type of Consultation: Pulmonary Ordering Provider: SANJUANITA SPAULDING Subjective Patient awake alert comfortable no acute distress Objective Vital Signs Date Time Temp Pulse Resp B/P Pulse Ox O2 Delivery O2 Flow Rate FiO2 09/06/16 08:14 75 09/06/16 07:49 98.4 17 155/72 91 09/05/16 13:36 Room Air 09/03/16 00:33 2.0 Intake and Output 09/05/16 09/05/16 09/06/16 14:59 22:59 06:59 Intake Total 50 ml 1010 ml 350 ml Balance 50 ml 1010 ml 350 ml Exam GENERAL: Well-nourished well-developed gentleman VITAL SIGNS: per chart NECK: Supple. No JVD or lymphadenopathy. CARDIAC EXAM: S1, S2. No added sounds or murmurs. CHEST: clear bilaterally, No added sounds, rales or wheezes ABDOMEN: Soft, nontender. No guarding or rebound. EXTREMITIES: No cyanosis, clubbing or edema. NEUROLOGIC: Generalized weakness. No focal deficits. Results/Medications Result Diagram: 09/05/1662409/05/16624 Medications Current Medications Pantoprazole (Protonix Iv) 40 mg DAILY@06 IV Last administered on 09/06/16 06: 06; Admin Dose 40 MG; Start 08/30/16 at 06:00 Heparin Sodium (Porcine) (Heparin (5000 Units/0.5 ml)) 5,000 unit Q8 SC Last administered on 09/06/16 06:08; Admin Dose 5,000 UNIT; Start 08/30/16 at 02:01 Hydralazine HCl (Apresoline) 10 mg Q4H PRN IV ELEVATED blood pressure Last administered on 08/31/16 23:35; Admin Dose 10 MG; Start 08/30/16 at 02:00 Acetaminophen 650 mg 650 mg Q4H PRN [place] PAIN LEVEL 1-3 OR FEVER; Start 08/30/16 at 03:00 Piperacillin Sod/ Tazobactam Sod (Zosyn 2.25gm/ 50ml (Pmx)) 50 ml @ 100 mls/hr Q8 IVPB Last administered on 09/06/16 06:05; Admin Dose 100 MLS/HR; Start 08/30 at 07:30 Clopidogrel Bisulfate (plaVIX) 75 mg DAILY PO Last administered on 09/06/16 09: 29; Admin Dose 75 MG; Start 08/30/16 at 09:00 EZETIMIBE (Zetia) 10 mg DAILY PO Last administered on 09/06/16 09:28; Admin Dose 10 MG; Start 08/30/16 at 09:00 Amiodarone HCl (Cordarone) 100 mg DAILY PO Last administered on 09/06/16 09:27 ; Admin Dose 100 MG; Start 08/31/16 at 09:00 Aspirin (Aspirin) 81 mg DAILY PO Last administered on 09/06/16 09:28; Admin Dose 81 MG; Start 08/31/16 at 09:00 Zolpidem Tartrate (Ambien) 5 mg HS PRN PO INSOMNIA Last administered on 23:35; Admin Dose 5 MG; Start 08/31/16 at 23:30 Paroxetine HCl (Paxil) 10 mg DAILY PO Last administered on 09/06/16 09:28; Admin Dose 10 MG; Start 09/01/16 at 12:00 Lorazepam (Ativan) 1 mg Q8H PRN PO ANXIETY Last administered on 09/04/16 23:08 ; Admin Dose 1 MG; Start 09/01/16 at 18:00 Furosemide 20 mg 20 mg DAILY PO Last administered on 09/06/16 09:28; Admin Dose 20 MG; Start 09/02/16 at 09:00 Vancomycin HCl/ Sodium Chloride (Vancocin/NS) 250 ml @ 83.333 mls/ hr Q48H IVPB Last administered on 09/03/16 19:54; Admin Dose 83.333 MLS/HR; Start at 20:00 Carvedilol (Coreg) 12.5 mg BID PO Last administered on 09/06/16 09:28; Admin Dose 12.5 MG; Start 09/04/16 at 09:00 Isosorbide Dinitrate (Isordil) 20 mg TID PO Last administered on 09/06/16 09:27 ; Admin Dose 20 MG; Start 09/05/16 at 09:00 Atorvastatin Calcium (Lipitor) 80 mg QHS PO ; Start 09/05/16 at 21:24 Hydralazine HCl (Apresoline) 100 mg TID PO Last administered on 09/06/16 09:29 ; Admin Dose 100 MG; Start 09/06/16 at 09:00 Assessment/Plan Chief Complaint/Hosp Course Assessment 1. Hypoxemic and hypercapnic respiratory failure 2. Renal insufficiency 3. COPD 4. Hx of lung mass diagnosed 2 yrs ago. Patient refused biopsy or treatment. 5. Hx renal artery stenting. Discussed with vascular surgery no evidence of occlusion patient renal function remained stable blood pressure stable 6. Essential hypertension with new medications being titrated Plan 1. Continue o2 2. BDs 3. OOB 4. Renal recommendations pending nuclear study 5. Discussed with family. Patient declining biopsy and treatment for lung mass. Discharge home today follow-up with me in the office Problems: MARY BARKER MD, FCCP Sep 06, 2016 11:24
[2016-09-06] MEDS ORDERED: HYDR-3672 PO (15:42)
[2016-09-06] MEDS ORDERED: ATOR80TA75 PO (15:42)
[2016-09-06] MEDS ORDERED: CARV12.579 PO (15:42)
[2016-09-06] MEDS ORDERED: ISOS20TA19 PO (15:42)
--- NOTE | 2016-09-06 16:07 | DS ---
Date/Time of Note Date/Time of Note DATE: 09/06/16 TIME: 15:57 Discharge Summary Admission/Discharge Info Admit Date/Time August 30, 2016 at 01:47 Discharge Date/Time Final Diagnosis 1. Recurrent pulmonary edema from hypertensive emergency/diastolic congestive heart failure, stable, follow up with cardiology 2. 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 Patient however refusing any kind of workup. 3. 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 4. History of coronary artery disease, status post bypass surgery. 5. History of bilateral renal artery stenting. 6. History of cardiac arrhythmia, status post pacemaker placement. 7. Hypertension, follow up with cardiology and nephrology Patient Condition: Stable Hx of Present Illness The patient is a 65-year-old male, presenting to the ER because of severe shortness of breath, worse for the last few hours prior to arrival. BP was 199/ 98 with HR 108 in ER, CXR indicated pulmonary edema. Patien t got intubated for respiratory failure. Patient was safely extubated after treatment with diuretics. Antihypertensives are adjusted. Patient has been doing well without shortness of breath there after.Patient needs to follow up with cardiology and nephrology closely to monitor blood pressure and adjust antihypertensives. Hospital Course The patient is a 65-year-old male, presenting to the ER because of severe shortness of breath, worse for the last few hours prior to arrival. BP was 199/ 98 with HR 108 in ER, CXR indicated pulmonary edema. Patien t got intubated for respiratory failure. Patient was safely extubated after treatment with diuretics. Antihypertensives are adjusted. Patient has been doing well without shortness of breath there after.Patient needs to follow up with cardiology and nephrology closely to monitor blood pressure and adjust antihypertensives. There is no evidence of infection. Home Meds Active Scripts Isosorbide Dinitrate* (Isosorbide Dinitrate*) 20 Mg Tablet, 20 MG PO TID for 30 Days, TAB Prov:TRESSA RUIZ MD 09/06/16 Hydralazine Hcl* (Apresoline*) 50 Mg Tab, 100 MG PO TID for 30 Days, TAB Prov:TRESSA RUIZ MD 09/06/16 Carvedilol* (Carvedilol*) 12.5 Mg Tablet, 12.5 MG PO BID for 30 Days, TAB Prov:TRESSA RUIZ MD 09/06/16 Atorvastatin* (Atorvastatin*) 80 Mg Tablet, 80 MG PO QHS for 30 Days, TAB Prov:TRESSA RUIZ MD 09/06/16 Aspirin* (Aspirin* Chew) 81 Mg Tab.chew, 81 MG PO DAILY, #30 TAB.CHEW Prov:GIA WILDER MD 03/07/16 Reported Medications Amiodarone Hcl* (Amiodarone Hcl*) 100 Mg Tablet, 100 MG PO DAILY, #30 TAB 08/30/16 Clopidogrel Bisulfate (Clopidogrel) 75 Mg Tablet, 75 MG PO DAILY, #30 TAB 08/16/16 Ezetimibe* (Zetia*) 10 Mg Tablet, 10 MG PO DAILY, TAB 05/21/16 Zolpidem Tartrate* (Zolpidem Tartrate*) 10 Mg Tablet, 10 MG PO QHS Y for INSOMNIA, #30 TAB 01/25/16 Discontinued Reported Medications Lisinopril* (Lisinopril*) 5 Mg Tablet, 5 MG PO DAILY, #30 TAB 08/30/16 Isosorbide Dinitrate* (Isordil*) 10 Mg Tablet, 10 MG PO TID, TAB 08/16/16 Amiodarone Hcl* (Amiodarone Hcl*) 200 Mg Tablet, 200 MG PO DAILY, #30 TAB 08/16/16 Discontinued Scripts Nifedipine (Afeditab CR) 60 Mg Tablet.sa, 60 MG PO DAILY for 30 Days Prov:TRESSA RUIZ MD 08/23/16 Carvedilol* (Carvedilol*) 6.25 Mg Tablet, 6.25 MG PO BID for 30 Days, TAB Prov:TRESSA RUIZ MD 08/23/16 Atorvastatin Calcium (Atorvastatin Calcium) 10 Mg Tablet, 10 MG PO QHS, #30 TAB Prov:GIA WILDER MD 08/18/16 Follow-up Plan cardiology, PCP, nephrology in one week Primary Care Provider TRESSA Stock MD Sep 06, 2016 16:07
[2016-09-06] MEDS ORDERED: PARO10TA76 PO (16:15)
== END 2016-09-06 16:26 | disposition home or self-care (01) | DRG 208 ==
LOC: E/R 22:56 → ICU 08-30 01:47 → MS4 08-31 17:03
PROVIDERS: ADMIT Family Medicine; ATTEND Family Medicine
PROC: 5A1935Z Respiratory Ventilation, Less than 24 Consecutive Hours (ICD-10-PCS; principal; 2016-08-30)
PROC: 0BH17EZ Insertion of Endotracheal Airway into Trachea, Via Natural or Artificial Opening (ICD-10-PCS; 2016-08-30)
DX: J96.01 Acute respiratory failure with hypoxia (principal); I21.4 Non-ST elevation (NSTEMI) myocardial infarction; N17.0 Acute kidney failure with tubular necrosis; I50.43 Acute on chronic combined systolic (congestive) and diastolic (congestive) heart failure; R57.0 Cardiogenic shock; I13.0 Hypertensive heart and chronic kidney disease with heart failure and stage 1 through stage 4 chronic kidney disease, or unspecified chronic kidney disease; J18.9 Pneumonia, unspecified organism; N18.4 Chronic kidney disease, stage 4 (severe); I16.1 Hypertensive emergency; C34.91 Malignant neoplasm of unspecified part of right bronchus or lung; Z95.1 Presence of aortocoronary bypass graft; Z95.0 Presence of cardiac pacemaker; Z95.820 Peripheral vascular angioplasty status with implants and grafts; E87.5 Hyperkalemia; J44.9 Chronic obstructive pulmonary disease, unspecified; R73.03 Prediabetes; F41.9 Anxiety disorder, unspecified
CPT/HCPCS: 31500; 36415; 36600; 71010; 71250; 80048; 80053; 80202; 81001; 81003; 82043; 82803; 82962; 83605; 83735; 84100; 84132; 84155; 84300; 84484; 85025; 85610; 85730; 86140; 87040; 87081; 87086; 93005; 93976; 94002; 94003; 94640; 94644; 96372; 96374; 96375; 96376; J1940; C9113; J0360; J0744; J1170; J1644; J1815; J2060; J2250; J2370; J2543; J3370; J7050

== ENCOUNTER 2016-10-04 15:35 | Inpatient (IN) | payer MEDICARE, OTHER ==
[~2016-10-04] VITALS: Ht 165.1 cm; Wt 68.0 kg
[~2016-10-04 15:35] MED LIST changes: +AMIO100T4 PO; -AMIO200T2 PO; -ATOR10TA65 PO; +ATOR80TA75 PO; +CARV12.579 PO; -CARV6.2579 PO; +HYDR-3672 PO; -ISOS10TA2 PO; +ISOS20TA19 PO; -NIFE60TA7 PO; +PARO10TA76 PO
[2016-10-04] MEDS ORDERED: ONDANSETRON 4 MG INJ IV STA (16:01)
--- NOTE | 2016-10-04 16:01 | ERA ---
ER Documentation Chief Complaint Date/Time DATE: 10/04/16 TIME: 16:00 Chief Complaint ABDOMINAL PAIN X 3 DAYS WIHT CONSTIPATION HPI 65-year-old male with a history of coronary artery disease status post CABG/PCI , ischemic cardiomyopathy with ejection fraction of 20-25% status post ICD, chronic kidney disease, renal artery stenosis status post stents, hypertension, peripheral vascular disease, left inguinal hernia and recent admission 2016 for respiratory failure secondary to pulmonary edema presents to the emergency department complaining of a 3 day history of increasing, now severe left inguinal hernia pain with generalized, crampy abdominal pain, distention, nausea with several episodes of nonbloody nonbilious emesis. Constipation but no diarrhea. Denies chest pain, palpitations or shortness of breath. No leg pain or swelling. No relieving or exacerbating factors. No fevers or chills. ROS All systems reviewed and are negative except as per history of present illness. Medications Home Meds Active Scripts Paroxetine Hcl* (Paroxetine*) 10 Mg Tablet, 10 MG PO DAILY for 30 Days, TAB Prov:TRESSA RUIZ MD 09/06/16 Isosorbide Dinitrate* (Isosorbide Dinitrate*) 20 Mg Tablet, 20 MG PO TID for 30 Days, TAB Prov:TRESSA RUIZ MD 09/06/16 Hydralazine Hcl* (Apresoline*) 50 Mg Tab, 100 MG PO TID for 30 Days, TAB Prov:TRESSA RUIZ MD 09/06/16 Carvedilol* (Carvedilol*) 12.5 Mg Tablet, 12.5 MG PO BID for 30 Days, TAB Prov:TRESSA RUIZ MD 09/06/16 Atorvastatin* (Atorvastatin*) 80 Mg Tablet, 80 MG PO QHS for 30 Days, TAB Prov:TRESSA RUIZ MD 09/06/16 Aspirin* (Aspirin* Chew) 81 Mg Tab.chew, 81 MG PO DAILY, #30 TAB.CHEW Prov:GIA WILDER MD 03/07/16 Reported Medications Amiodarone Hcl* (Amiodarone Hcl*) 100 Mg Tablet, 100 MG PO DAILY, #30 TAB 08/30/16 Clopidogrel Bisulfate (Clopidogrel) 75 Mg Tablet, 75 MG PO DAILY, #30 TAB 08/16/16 Ezetimibe* (Zetia*) 10 Mg Tablet, 10 MG PO DAILY, TAB 05/21/16 Zolpidem Tartrate* (Zolpidem Tartrate*) 10 Mg Tablet, 10 MG PO QHS Y for INSOMNIA, #30 TAB 01/25/16 Allergies Allergies: Coded Allergies: No Known Allergy (Unverified , 10/04/16) PMhx/Soc Reviewed in chart. As per HPI. History of Surgery: Yes (CABG/PCI) Anesthesia Reaction: No Hx Neurological Disorder: No Hx Respiratory Disorders: Yes Hx Cardiac Disorders: Yes Hx Psychiatric Problems: No (ANXIETY) Hx Miscellaneous Medical Probl: Yes (As per HPI) Hx Alcohol Use: No Hx Substance Use: No Hx Tobacco Use: No FmHx Reviewed in chart. No cancer. Not relevant to presenting complaint. Physical Exam Vitals Vital Signs Date Time Temp Pulse Resp B/P Pulse Ox O2 Delivery O2 Flow Rate FiO2 10/04/16 18:15 70 18 128/59 96 Room Air 10/04/16 15:42 98.1 70 18 136/67 96 Physical Exam Const: Alert, moderate distress due to pain Head: Atraumatic Eyes: Normal Conjunctiva ENT: Normal External Ears, Nose and Mouth. Neck: Full range of motion. No JVD. Nontender Resp: Breath sounds are equal and clear to auscultation bilaterally. No rales rhonchi or wheezes. Cardio: Regular rate and rhythm, no murmurs. Status post median sternotomy. AICD left upper chest wall. Abd: Soft, distended, diffusely tender but no rebound or guarding. Not reducible left inguinal hernia, tender. Skin: No petechiae or rashes Back: No midline or flank tenderness Ext: No cyanosis, or edema Neur: Awake and alert. No focal deficit observed. Psych: Normal Mood and Affect Result Diagram: 10/04/16 1610 10/04/16 1610 Results 24 hrs Laboratory Tests Test 10/04/16 16:10 White Blood Count 6.810^3/ul Red Blood Count 4.4810^6/ul Hemoglobin 12.2g/dl Hematocrit 38.3% Mean Corpuscular Volume 85.5fl Mean Corpuscular Hemoglobin 27.2pg Mean Corpuscular Hemoglobin Concent 31.9g/dl Red Cell Distribution Width 13.1% Platelet Count 60400^3/UL Mean Platelet Volume 10.8fl Neutrophils % % Eosinophils % % Neutrophils # 10^3/ul Eosinophils # 10^3/ul Prothrombin Time 13.6Sec Prothrombin Time Ratio 1.1 INR International Normalized Ratio 1.04 Activated Partial Thromboplast Time 39.3Sec Sodium Level 134mmol/L Potassium Level 3.3mmol/L Chloride Level 94mmol/L Carbon Dioxide Level 27mmol/L Anion Gap 16 Blood Urea Nitrogen 47mg/dl Creatinine 2.63mg/dl Glucose Level 132mg/dl Calcium Level 9.4mg/dl Total Bilirubin 0.8mg/dl Direct Bilirubin 0.00mg/dl Indirect Bilirubin 0.8mg/dl Aspartate Amino Transf (AST/SGOT) 25IU/L Alanine Aminotransferase (ALT/SGPT) 31IU/L Alkaline Phosphatase 73IU/L Total Protein 7.6g/dl Albumin 4.6g/dl Globulin 3.00g/dl Albumin/Globulin Ratio 1.53 Lipase 35U/L Current Medications Medications (Trade) Dose Ordered Sig/Deanna Route PRN Reason Start Time Stop Time Status Last Admin Dose Admin Morphine Sulfate (morphine) 4 mg ONCE STAT IV 10/04/16 16:01 10/04/16 16:05 DC 10/04/16 18:10 Ondansetron HCl 4 mg 4 mg ONCE STAT IV 10/04/16 16:01 10/04/16 16:05 DC 10/04/16 16:21 Piperacillin Sod/ Tazobactam Sod (Zosyn 3.375gm/ 100 ml (Pmx)) 100 ml @ 200 mls/hr ONCE STAT IVPB 10/04/16 17:50 10/04/16 18:19 DC 10/04/16 18:10 IV Flush (NS 3 ml) 3 ml PER PROTOCOL IV 10/04/16 19:00 Ondansetron HCl (Zofran Inj) 4 mg Q6H PRN IV NAUSEA AND/OR VOMITING 10/04/16 19:00 Acetaminophen (Tylenol Tab) 650 mg Q6H PRN PO PAIN LEVEL 1-3 OR FEVER 10/04/16 19:00 Acetaminophen/ Hydrocodone Bitart ([place] (5/325)) 1 tab Q6H PRN PO MODERATE PAIN LEVEL 4-6 10/04/16 19:00 Morphine Sulfate (morphine) 2 mg Q4H PRN IV SEVERE PAIN LEVEL 7-10 10/04/16 19:00 Docusate Sodium (Colace) 100 mg Q12H PRN PO CONSTIPATION 10/04/16 19:00 Magnesium Hydroxide (Milk Of Mag) 30 ml DAILY PRN PO CONSTIPATION 10/04/16 19:00 Sodium Biphosphate/ Sodium Phosphate (Fleet Enema) 133 ml DAILY PRN SC CONSTIPATION 10/04/16 19:00 Pantoprazole 40 mg 40 mg DAILY@06 IV 10/05/16 06:00 Sodium Chloride (1/2 NS) 1,000 ml @ 75 mls/hr [id number] IV 10/04/16 18:59 Lorazepam (Ativan) 0.5 mg Q6H PRN IV ANXIETY 10/04/16 19:00 Albuterol/ Ipratropium (Duoneb) 3 ml Q4H RESP THERAPY PRN HHN SHORTNESS OF BREATH 10/04/16 19:00 Hydralazine HCl (Apresoline) 10 mg Q6H PRN IV ELEVATED BLOOD PRESSURE 10/04/16 19:00 Nitroglycerin (Nitroglycerin (Sl Tab) 0.4 Mg) 1 tab Q5M PRN SL ANGINA 10/04/16 19:00 Eye Lubricant (Artificial Tears Oph) 1 drop TID BOTH EYES 10/04/16 21:00 Insulin Aspart (Novolog Insulin Pen) NOVOLOG *MILD* ALGORI... Q4 SC 10/04/16 21:00 Miscellaneous Information (* Miscellaneous Pharmacy Order) HYPOGLYCEMIA PROTOCOL w... ONCE ONCE XX 10/04/16 19:00 10/04/16 19:08 DC Miscellaneous Information (* Miscellaneous Pharmacy Order) Discontinue Glyburide, Glipizide,... ONCE ONCE XX 10/04/16 19:00 10/04/16 19:08 DC Miscellaneous Information (* Miscellaneous Pharmacy Order) Discontinue all previ... ONCE ONCE XX 10/04/16 19:00 10/04/16 19:08 DC Amiodarone HCl (Cordarone) 100 mg DAILY PO 10/05/16 09:00 Aspirin (Aspirin) 81 mg DAILY PO 10/05/16 09:00 Atorvastatin Calcium (Lipitor) 80 mg QHS PO 10/04/16 21:00 Carvedilol (Coreg) 12.5 mg BID PO 10/04/16 21:00 EZETIMIBE (Zetia) 10 mg DAILY PO 10/05/16 09:00 Hydralazine HCl (Apresoline) 100 mg TID PO 10/04/16 21:00 Isosorbide Dinitrate (Isordil) 20 mg TID PO 10/04/16 21:00 Paroxetine HCl (Paxil) 10 mg DAILY PO 10/05/16 09:00 Zolpidem Tartrate (Ambien) 10 mg QHS PRN PO INSOMNIA 10/04/16 19:00 Miscellaneous Information 1 ea NOTE XX 10/04/16 19:30 Glucose (Glutose) 15 gm Q15M PRN PO DECREASED GLUCOSE 10/04/16 19:30 Glucose (Glutose) 22.5 gm Q15M PRN PO DECREASED GLUCOSE 10/04/16 19:30 Dextrose (D50w Syringe) 25 ml Q15M PRN IV DECREASED GLUCOSE 10/04/16 19:30 Dextrose (D50w Syringe) 50 ml Q15M PRN IV DECREASED GLUCOSE 10/04/16 19:30 Glucagon (Glucagen) 1 mg Q15M PRN IM DECREASED GLUCOSE 10/04/16 19:30 Glucose 15 gm 15 gm Q15M PRN BUCCAL DECREASED GLUCOSE 10/04/16 19:30 Potassium Chloride/Dextrose/ Sod Cl (D5-1/2ns + KCl 20 Meq) 1,000 ml @ 70 mls/hr [id number] ONCE IV 10/04/16 19:08 10/05/16 09:25 PROCEDURE: CT Abdomen and Pelvis without contrast. CLINICAL INDICATION: Abdominal pain. Left inguinal hernia. TECHNIQUE: CT scan of the abdomen and pelvis without contrast was performed on a multi-slice CT scanner without intravenous contrast. Coronal and sagittal reformatted images were obtained from the axial source images. Images were reviewed on a high-resolution PACS workstation. One or more of the following does reduction techniques were used: Automated exposure control; adjustment of the mA and/or kV according to patient size; use of the aorta of reconstruction technique. The total exam CTDI equals 8.95 mGy and the total exam DLP equals 497.14 mGy-cm. COMPARISON: None available. FINDINGS: There is minimal basilar atelectasis. No infiltrate or effusion is seen. The heart is enlarged. There is no pericardial effusion or pericardial thickening the distal portions of a defibrillator device are seen there is ectasia of the distal thoracic aorta which measures up to 3.7 cm in diameter. The liver, spleen, and pancreas are normal given limitations of a noncontrast CT examination. Gallstones are identified within the gallbladder.. The adrenal glands are normal. There is several bilateral renal calcifications some of which are vascular in origin, however some represent nonobstructing nephroliths measuring between 2 and 4 mm. There is no hydronephrosis. Extensive atherosclerotic calcifications. There are several segments of curvilinear calcification within the aortic lumen suggesting chronic dissections. There is no retroperitoneal lymph node enlargment. A small bowel obstruction is present with a transition point in a moderate left inguinal hernia. This appears to be at the level of the distal ileum. There is a small amount of free fluid within the hernia sac and a small amount of abdominopelvic ascites. There may be mild inflammatory changes within the hernia sac. No drainable fluid collection is identified. The prostate is mildly enlarged. No enlarged pelvic sidewall lymph nodes are identified. There is trace pelvic free fluid. The bladder is within normal limits. The right inguinal region is unremarkable. The bones are intact. IMPRESSION: 1. Small bowel obstruction at the level of the distal ileum secondary to moderate left inguinal hernia. There is questionable inflammatory change within the hernia sac and a small amount of fluid, and strangulation cannot be excluded based on this appearance. 2. Small abdominopelvic ascites. 3. Extensive atherosclerotic vascular disease including ectasia of the distal thoracic aorta measuring up to 3.7 cm in multiple segments of intraluminal curvilinear calcifications suggesting multi focal chronic dissection. 4. Cardiomegaly. 5. Small nonobstructing bilateral renal calculi. RPTAT: AA .Wilmer Zhnag MD, MD Date Time Electronically viewed and signed by .Wilmer Zhang MD, MD on 2016 17:45 .B/ EKG: Time: 18:14. Atrial paced rhythm. Ventricular rate 70. Left axis deviation and left bundle branch block. No ectopy. No acute ST-T wave changes. EP interpretation: Abnormal ECG Procedures/MDM DOCUMENTS REVIEWED: ED nurse, prior ED, prior records ED COURSE: Morphine 4 mg/Zofran 4 mg IV MEDICAL DECISION MAKIN-year-old male with a history of coronary artery disease status post CABG/PCI, ischemic cardiomyopathy with ejection fraction of 20-25% status post ICD, chronic kidney disease, renal artery stenosis status post stents, hypertension, peripheral vascular disease, left inguinal hernia and r recent admission 08/30/2016 for respiratory failure secondary to pulmonary edema presents to the emergency department complaining of a 3 day history of worsening left inguinal hernia pain with abdominal pain, distention, nausea and vomiting. CT reveals a small bowel obstruction with a transition point at the hernia consistent with a incarcerated hernia and possible granulation. NG tube placed, over 300 cc immediately obtained and attached to low intermittent suction. Gentle hydration initiated. Patient will be admitted for urgent surgical consultation, further evaluation and management. Counseled patient of regarding diagnosis, diagnostic results and plan for admission. CALLS/CONSULTS: Time 17:55, Dr. Decker, case discussed. Has been to the ED and evaluated the patient. Recommends to ICU, NG tube and medical clearance for surgery. CALLS/CONSULTS: Time 18:00, Dr. Orr. PATIENT CARE TRANSITIONED: Time: 18:00, Dr. Orr. CRITICAL CARE TIME: Due to the high probability of sudden clinically significant hemodynamic, cardiovascular and gastrointestinal deterioration, this patient with acute small bowel obstruction due to incarcerated inguinal hernia with possible strangulation required multiple, frequent reevaluations of vital signs and response to therapy. Additional critical care time was spent in interpretation of pertinent clinical data, extensive review of previous medical records, obtaining additional history from and counseling of the patient and his son as well as consultation with the surgeon Dr. Decker and admitting physician Dr. Orr. TOTAL CRITICAL CARE TIME: 35 minutes not including other separately reportable procedures. Departure Diagnosis: Primary Impression: Acute generalized abdominal pain Additional Impressions: Incarcerated left inguinal hernia Small bowel obstruction Chronic kidney disease Qualified Code: N18.9 - Chronic kidney disease, unspecified stage Hypertension Qualified Code: I15.0 - Renovascular hypertension Renal artery stenosis Condition: Critical CAMILO MARTINEZ MD Oct 04, 2016 16:00
[2016-10-04] MEDS: morphine 4 MG/ML VIAL IV STA ×2 (16:28→18:10)
[2016-10-04 16:31] LABS: ADD SCAN DIFF NO
[2016-10-04 16:33] LABS: HEMATOCRIT 38.3 % (42.0-52.0); HEMOGLOBIN 12.2 g/dl (14.0-18.0); MEAN CORPUSCULAR HEMOGLOBIN 27.2 pg (29.0-33.0); MEAN CORPUSCULAR HGB CONC 31.9 g/dl (32.0-37.0); MEAN CORPUSCULAR VOLUME 85.5 fl (82.0-101.0); MEAN PLATELET VOLUME 10.8 fl (7.4-10.4); PLATELET COUNT 381 10^3/UL (140-415); RED BLOOD COUNT 4.48 10^6/ul (4.70-6.10); RED CELL DISTRIBUTION WIDTH 13.1 % (11.5-14.5); WHITE BLOOD COUNT 6.8 10^3/ul (4.8-10.8)
[2016-10-04 16:56] LABS: ALBUMIN 4.6 g/dl (3.3-4.9); ALBUMIN/GLOBULIN RATIO 1.53; BILIRUBIN,INDIRECT 0.8 mg/dl (0-1.1); BILIRUBIN,TOTAL 0.8 mg/dl (0.2-1.3); CALCIUM 9.4 mg/dl (8.4-10.2); CREATININE 2.63 mg/dl (0.61-1.24); POTASSIUM 3.3 mmol/L (3.5-5.1); TOTAL PROTEIN 7.6 g/dl (6.1-8.1)
--- NOTE | 2016-10-04 17:46 | RADRPT ---
PROCEDURE: CT Abdomen and Pelvis without contrast. CLINICAL INDICATION: Abdominal pain. Left inguinal hernia. TECHNIQUE: CT scan of the abdomen and pelvis without contrast was performed on a multi-slice CT [facility] without intravenous contrast. Coronal and sagittal reformatted images were obtained from the axial source images. Images were reviewed on a high-resolution PACS workstation. One or more of the following does reduction techniques were used: Automated exposure control; adjustment of the mA an d/or kV according to patient size; use of the aorta of reconstruction technique. The total exam CTD I equals 8.95 mGy and the total exam DLP equals 497.14 mGy-cm. COMPARISON: None available. FINDINGS: There is minimal basilar atelectasis. No infiltrate or effusion is seen. The heart is enlarged. T here is no pericardial effusion or pericardial thickening the distal portions of a defibrillator dev ice are seen there is ectasia of the distal thoracic aorta which measures up to 3.7 cm in diameter. The liver, spleen, and pancreas are normal given limitations of a noncontrast CT examination. Galls tones are identified within the gallbladder.. The adrenal glands are normal. There is several bilateral renal calcifications some of which are va scular in origin, however some represent nonobstructing nephroliths measuring between 2 and 4 mm. T here is no hydronephrosis. Extensive atherosclerotic calcifications. There are several segments of curvilinear calcification w ithin the aortic lumen suggesting chronic dissections. There is no retroperitoneal lymph node enlar gment. A small bowel obstruction is present with a transition point in a moderate left inguinal hernia. Th is appears to be at the level of the distal ileum. There is a small amount of free fluid within the hernia sac and a small amount of abdominopelvic ascites. There may be mild inflammatory changes wi thin the hernia sac. No drainable fluid collection is identified. The prostate is mildly enlarged. No enlarged pelvic sidewall lymph nodes are identified. There is t race pelvic free fluid. The bladder is within normal limits. The right inguinal region is unremark able. The bones are intact. IMPRESSION: 1. Small bowel obstruction at the level of the distal ileum secondary to moderate left inguinal her ana. There is questionable inflammatory change within the hernia sac and a small amount of fluid, a nd strangulation cannot be excluded based on this appearance. 2. Small abdominopelvic ascites. 3. Extensive atherosclerotic vascular disease including ectasia of the distal thoracic aorta measur ing up to 3.7 cm in multiple segments of intraluminal curvilinear calcifications suggesting multi fo hair chronic dissection. 4. Cardiomegaly. 5. Small nonobstructing bilateral renal calculi. RPTAT: AA .Wilmer Zhang MD, MD Date Time Electronically viewed and signed by .Wilmer Zhang MD, on 10/04/2016 17:45 .B/
[2016-10-04] MEDS ORDERED: PIPER-TAZO 3.375 GM IV (PMX) 100 ML IVPB STA (17:50)
[2016-10-04] MEDS: SOD CHLORIDE 0.45% 1,000 ML IV SCH (18:59)
[2016-10-04] MEDS ORDERED: NITROGLYCERIN (SL) 0.4 MG TAB SL PRN (19:00)
[2016-10-04] MEDS ORDERED: ALBUTEROL/IPRATROPIUM (NEB) 3 ML AMP HHN PRN (19:00)
[2016-10-04] MEDS ORDERED: NA PHOSPHATE/BIPHOS 133 ML ENEMA PR PRN (19:00)
[2016-10-04] MEDS ORDERED: DOCUSATE SODIUM 100 MG CAP PO PRN (19:00)
[2016-10-04] MEDS ORDERED: ONDANSETRON 4 MG INJ IV PRN (19:00)
[2016-10-04] MEDS ORDERED: LORAZEPAM 2 MG INJ IV PRN (19:00)
[2016-10-04] MEDS ORDERED: NACL 0.9% 3 ML SYG IV SCH (19:00)
[2016-10-04] MEDS ORDERED: ACETAMINOPHEN 325 MG TAB PO PRN (19:00)
[2016-10-04] MEDS ORDERED: hydrALAzine 20 MG INJ IV PRN (19:00)
[2016-10-04] MEDS ORDERED: HYDROCODONE/APAP (5/325) TAB PO PRN (19:00)
[2016-10-04] MEDS ORDERED: morphine 2 MG INJ IV PRN (19:00)
[2016-10-04 19:18] LABS: INR 1.04; PROTIME 13.6 Sec (12.2-14.2); PT RATIO 1.1
[2016-10-04 19:19] LABS: PARTIAL THROMBOPLASTIN TIME 39.3 Sec (25.0-35.0)
[2016-10-04] MEDS: D5W-0.45 NACL + KCL 20 MEQ 1,000 ML IV ONE ×2 (19:28→23:13)
[2016-10-04] MEDS ORDERED: GLUCAGON 1 MG INJ IM PRN (19:30)
[2016-10-04] MEDS ORDERED: DEXTROSE 50% 50 ML SYRINGE IV PRN ×2 (19:30)
[2016-10-04] MEDS ORDERED: GLUCOSE GEL 15 GRAM TUBE PO PRN ×2 (19:30)
[2016-10-04] MEDS ORDERED: GLUCOSE GEL 15 GRAM TUBE BUCCAL PRN (19:30)
[2016-10-04] MEDS ORDERED: SOD CHLORIDE 0.9% 500 ML IV STA (19:44)
[2016-10-04] MEDS ORDERED: POLYMYXIN/BACITRACIN 1L IRRIG ONE (20:03)
[2016-10-04] MEDS ORDERED: SERT50TA6 PO (20:07)
[2016-10-04] MEDS ORDERED: CLON0.5T4 PO (20:08)
[2016-10-04 20:11] VITALS: TEMP 98.1
[2016-10-04 20:33] LABS: BASOPHIL # 0.1 10^3/ul (0.0-0.1); LYMPHOCYTES # 0.5 10^3/ul (0.8-2.9); MONOCYTE # 1.2 10^3/ul (0.3-0.9); NEUTROPHIL # 3.5 10^3/ul (1.6-7.5)
--- NOTE | 2016-10-04 20:37 | RADRPT ---
PROCEDURE: XR Chest. CLINICAL INDICATION: NG tube placement abdominal pain TECHNIQUE: AP Portable chest. COMPARISON: 05/22/2016 chest x-ray FINDINGS: The soft tissues and bones are remarkable for left precordial combination pacemaker and AICD. Statu s post median sternotomy and prior heart surgery is noted. An enteric tube is noted in the stomach and recommend advancement of approximately 5 cm. No focal infiltrates, masses, or effusions are not ed. The mediastinum and heart are remarkable for moderate cardiomegaly and mild atherosclerotic vas cular disease. IMPRESSION: 1. Enteric tube in stomach and recommend advancement at least 5 cm. 2. Left precordial combination pacemaker AICD and status post median sternotomy and heart surgery. 3. Moderate cardiomegaly and mild atherosclerotic vascular disease 4. No radiographic evidence for acute cardiopulmonary disease RPTAT: HDC .Unique Coelho MD, Date Time Electronically viewed and signed by .Unique Coelho MD, on 10/04/2016 20:37 .C/
[2016-10-04] MEDS ORDERED: FENTAnyl 50 MCG/ML VIAL ONE (20:45)
[2016-10-04] MEDS ORDERED: MIDAZOLAM 1 MG/ML 2 ML INJ ONE (20:45)
[2016-10-04] MEDS: ATORVASTATIN 80 MG TAB PO SCH (21:00)
[2016-10-04] MEDS: INSULIN ASPART [NOVOLOG] 3 ML PEN SC SCH (21:00)
[2016-10-04] MEDS: ARTIFICIAL TEARS 15 ML OPH BOTH EYES SCH (21:00)
--- NOTE | 2016-10-04 21:14 | HP ---
Date/Time of Note Date/Time of Note DATE: 10/04/16 TIME: 21:09 Assessment/Plan VTE Prophylaxis VTE Prophylaxis Intervention: SCD's Assessment/Plan Assessment/Plan 65-year-old male with a complicated medical history who presents with nausea vomiting and left-sided groin pain with the followin. 1. Small bowel obstruction at the level of the distal ileum secondary to incarcerated left inguinal hernia 2. Hypertension currently with good control 3. History of congestive heart failure and recurrent flash pulmonary edema: Stable, no acute issues at this time 4. 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 Chronic carotid artery stenosis status post CEA 6. History of bilateral renal stenosis status post stent 7. Chronic kidney disease stage IV: Stable without acute abnormality 8. Chronic lung mass for which patient has refused workup and intervention repeatedly in the past 9. Chronic cardiomyopathy likely ischemic status post AICD PLAN: * Patient is planned for immediate exp lap tonight, appreciate surgical prompt input * Will notify Cardiology for postop followup and mgt. * Continue NGT to suction * Provide supportive care and pain control * Advice gentle intraoperaytive fluid hydration in view of history * Serial labs, supportive care, pain control and close monitoring, further interventions per clinical course * Prophylaxis : SCDS / Pepcid HPI/ROS Admit Date/Time Admit Date/Time 10/04/16 Hx of Present Illness His apartment is a 65-year-old male known to our service for recurrent admissions for flash pulmonary edema, hypertensive urgency, chronic kidney disease. It was thought that this episodes was secondary to her generalized anxiety disorder versus bilateral renal artery stenosis. He underwent renal artery stenting, but still had episode of flash pulmonary edema in which he went into respiratory failure and had to be endotracheally intubated. He was successfully managed and extubated and his family tells me that shortly after that admission he was seen by psychiatrist and started on medications for anxiety disorder since then he has been able to stay out of the hospital for the last 1 month. However since about 3 or 4 days ago the patient has been having nausea and vomiting and fixation of an inguinal hernia on the left. Symptoms have slowly worsened to the point where today his nausea and vomiting became intractable. Family brought him into the emergency room where a CAT scan of the abdomen showed small bowel obstruction at the level of distal ileum secondary to moderate left inguinal hernia for which strangulation could not be excluded. Incidentally though the CAT scan also showed extensive atherosclerotic vascular disease including multifocal chronic dissection in the distal thoracic aorta measuring 3.7 cm. At this time he is being taken to the operating room for emergent exploratory laparotomy and probable hernia repair. He is being admitted to the intensive care unit in the interim. ROS There has been no fever, no chest pain, no shortness of breath, no wheezing. Patient last bowel movement was on Sunday, he has had poor appetite associated with intractable nausea and vomiting. There has been no blood in his vomit, there has been no new skin rash or jaundice. All other systems and a 12 point review of system was done and negative. PMH/Family/Social Past Medical History * Generalized anxiety disorder * Congestive heart failure renal artery stenosis status post bilateral stenting * Chronic lung mass * hypertension * Ischemic cardiomyopathy with last known ejection fraction of 20% status post AICD coronary artery disease status post coronary artery bypass surgery and PCI in the past * Carotid artery stenosis status post carotid endarterectomy * Previous smoker * Chronic kidney disease stage IV with baseline creatinine of between 2 and 2.5 Past Surgical History See above Past Surgical Hx: coronary bypass surgery, other Family History Significant Family History: no pertinent family hx Social History Alcohol Use: none Smoking Status: Former smoker Drug Use: none Exam/Review of Systems Vital Signs Vitals VS - Last 72 Hours, by Label Date Time Temp Pulse Resp B/P Pulse Ox O2 Delivery O2 Flow Rate FiO2 10/04/16 20:11 98.1 70 18 126/72 95 Room Air 10/04/16 18:15 70 18 128/59 96 Room Air 10/04/16 15:42 98.1 70 18 136/67 96 Vital Signs Date Time Temp Pulse Resp B/P Pulse Ox O2 Delivery O2 Flow Rate FiO2 10/04/16 20:11 98.1 70 18 126/72 95 Room Air Exam Constitutional: alert, distress, oriented Psych: anxiety Head: atraumatic, normocephalic Eyes: PERRL, other (NGT to suction with greenish drain), No icteric ENMT: mucosa pink and moist Neck: non-tender, other (surgical scar), supple, No jvd Respiratory: clear to auscultation, diminished breath sounds, other (AICD L chest wall), No labored breathing Cardiovascular: regular rate and rhythm, No murmurs/extra sounds Gastrointestinal: bowel sounds (hypoactive), distended (mildly), soft, No rebound or guarding Genitourinary - Male: other (visible L inguinal swelling, non tender, non erythematous) Extremities: No edema Neurological: lethargic, nl mental status Labs Result Diagram: 10/04/16 1610 10/04/16 1610 Medications Medications Current Medications Ondansetron HCl (Zofran Inj) 4 mg Q6H PRN IV NAUSEA AND/OR VOMITING; Start 10/04 at 19:00 Acetaminophen (Tylenol Tab) 650 mg Q6H PRN PO PAIN LEVEL 1-3 OR FEVER; Start at 19:00 Acetaminophen/ Hydrocodone Bitart ([place] (5/325)) 1 tab Q6H PRN PO MODERATE PAIN LEVEL 4-6; Start 10/04/16 at 19:00 Morphine Sulfate (morphine) 2 mg Q4H PRN IV SEVERE PAIN LEVEL 7-10; Start at 19:00 Docusate Sodium (Colace) 100 mg Q12H PRN PO CONSTIPATION; Start 10/04/16 at 19: 00 Magnesium Hydroxide (Milk Of Mag) 30 ml DAILY PRN PO CONSTIPATION; Start at 19:00 Sodium Biphosphate/ Sodium Phosphate (Fleet Enema) 133 ml DAILY PRN [place] CONSTIPATION; Start 10/04/16 at 19:00 Pantoprazole 40 mg 40 mg DAILY@06 IV ; Start 10/05/16 at 06:00 Sodium Chloride (1/2 NS) 1,000 ml @ 75 mls/hr [id number] IV ; Start 10/04/16 at 18: 59 Lorazepam (Ativan) 0.5 mg Q6H PRN IV ANXIETY; Start 10/04/16 at 19:00 Hydralazine HCl (Apresoline) 10 mg Q6H PRN IV ELEVATED BLOOD PRESSURE; Start at 19:00 Nitroglycerin (Nitroglycerin (Sl Tab) 0.4 Mg) 1 tab Q5M PRN SL ANGINA; Start at 19:00 Eye Lubricant (Artificial Tears Oph) 1 drop TID BOTH EYES ; Start 10/04/16 at 21: 00 Insulin Aspart (Novolog Insulin Pen) NOVOLOG *MILD* ALGORI... Q4 SC ; Start 10/04 at 21:00 Amiodarone HCl (Cordarone) 100 mg DAILY PO ; Start 10/05/16 at 09:00 Aspirin (Aspirin) 81 mg DAILY PO ; Start 10/05/16 at 09:00 Atorvastatin Calcium (Lipitor) 80 mg QHS PO ; Start 10/04/16 at 21:00 Carvedilol (Coreg) 12.5 mg BID PO ; Start 10/04/16 at 21:00 EZETIMIBE (Zetia) 10 mg DAILY PO ; Start 10/05/16 at 09:00 Hydralazine HCl (Apresoline) 100 mg TID PO ; Start 10/04/16 at 21:00 Isosorbide Dinitrate (Isordil) 20 mg TID PO ; Start 10/04/16 at 21:00 Paroxetine HCl (Paxil) 10 mg DAILY PO ; Start 10/05/16 at 09:00 Zolpidem Tartrate (Ambien) 10 mg QHS PRN PO INSOMNIA; Start 10/04/16 at 19:00 Miscellaneous Information 1 ea NOTE XX ; Start 10/04/16 at 19:30 Glucose (Glutose) 15 gm Q15M PRN PO DECREASED GLUCOSE; Start 10/04/16 at 19:30 Glucose (Glutose) 22.5 gm Q15M PRN PO DECREASED GLUCOSE; Start 10/04/16 at 19:30 Dextrose (D50w Syringe) 25 ml Q15M PRN IV DECREASED GLUCOSE; Start 10/04/16 at 19:30 Dextrose (D50w Syringe) 50 ml Q15M PRN IV DECREASED GLUCOSE; Start 10/04/16 at 19:30 Glucagon (Glucagen) 1 mg Q15M PRN IM DECREASED GLUCOSE; Start 10/04/16 at 19:30 Glucose 15 gm 15 gm Q15M PRN BUCCAL DECREASED GLUCOSE; Start 10/04/16 at 19:30 Potassium Chloride/Dextrose/ Sod Cl (D5-1/2ns + KCl 20 Meq) 1,000 ml @ 70 mls/ hr [id number] ONCE IV ; Start 10/04/16 at 19:08; Stop 10/05/16 at 09:25 Procedures Procedures Laboratory Tests Test 10/04/16 16:10 White Blood Count 6.810^3/ul Red Blood Count 4.4810^6/ul Hemoglobin 12.2g/dl Hematocrit 38.3% Mean Corpuscular Volume 85.5fl Mean Corpuscular Hemoglobin 27.2pg Mean Corpuscular Hemoglobin Concent 31.9g/dl Red Cell Distribution Width 13.1% Platelet Count 75272^3/UL Mean Platelet Volume 10.8fl Neutrophils % 51.0% Band Neutrophils % 23.0% Lymphocytes % 8.0% Monocytes % 17.0% Eosinophils % % Basophils % 1.0% Neutrophils # 3.510^3/ul Lymphocytes # 0.510^3/ul Monocytes # 1.210^3/ul Eosinophils # 10^3/ul Basophils # 0.110^3/ul Prothrombin Time 13.6Sec Prothrombin Time Ratio 1.1 INR International Normalized Ratio 1.04 Activated Partial Thromboplast Time 39.3Sec Sodium Level 134mmol/L Potassium Level 3.3mmol/L Chloride Level 94mmol/L Carbon Dioxide Level 27mmol/L Anion Gap 16 Blood Urea Nitrogen 47mg/dl Creatinine 2.63mg/dl Glucose Level 132mg/dl Calcium Level 9.4mg/dl Total Bilirubin 0.8mg/dl Direct Bilirubin 0.00mg/dl Indirect Bilirubin 0.8mg/dl Aspartate Amino Transf (AST/SGOT) 25IU/L Alanine Aminotransferase (ALT/SGPT) 31IU/L Alkaline Phosphatase 73IU/L Total Protein 7.6g/dl Albumin 4.6g/dl Globulin 3.00g/dl Albumin/Globulin Ratio 1.53 Lipase 35U/L PROCEDURE: CT Abdomen and Pelvis without contrast. CLINICAL INDICATION: Abdominal pain. Left inguinal hernia. TECHNIQUE: CT scan of the abdomen and pelvis without contrast was performed on a multi-slice CT scanner without intravenous contrast. Coronal and sagittal reformatted images were obtained from the axial source images. Images were reviewed on a high-resolution PACS workstation. One or more of the following does reduction techniques were used: Automated exposure control; adjustment of the mA and/or kV according to patient size; use of the aorta of reconstruction technique. The total exam CTDI equals 8.95 mGy and the total exam DLP equals 497.14 mGy-cm. COMPARISON: None available. FINDINGS: There is minimal basilar atelectasis. No infiltrate or effusion is seen. The heart is enlarged. There is no pericardial effusion or pericardial thickening the distal portions of a defibrillator device are seen there is ectasia of the distal thoracic aorta which measures up to 3.7 cm in diameter. The liver, spleen, and pancreas are normal given limitations of a noncontrast CT examination. Gallstones are identified within the gallbladder.. The adrenal glands are normal. There is several bilateral renal calcifications some of which are vascular in origin, however some represent nonobstructing nephroliths measuring between 2 and 4 mm. There is no hydronephrosis. Extensive atherosclerotic calcifications. There are several segments of curvilinear calcification within the aortic lumen suggesting chronic dissections. There is no retroperitoneal lymph node enlargment. A small bowel obstruction is present with a transition point in a moderate left inguinal hernia. This appears to be at the level of the distal ileum. There is a small amount of free fluid within the hernia sac and a small amount of abdominopelvic ascites. There may be mild inflammatory changes within the hernia sac. No drainable fluid collection is identified. The prostate is mildly enlarged. No enlarged pelvic sidewall lymph nodes are identified. There is trace pelvic free fluid. The bladder is within normal limits. The right inguinal region is unremarkable. The bones are intact. IMPRESSION: 1. Small bowel obstruction at the level of the distal ileum secondary to moderate left inguinal hernia. There is questionable inflammatory change within the hernia sac and a small amount of fluid, and strangulation cannot be excluded based on this appearance. 2. Small abdominopelvic ascites. 3. Extensive atherosclerotic vascular disease including ectasia of the distal thoracic aorta measuring up to 3.7 cm in multiple segments of intraluminal curvilinear calcifications suggesting multi focal chronic dissection. 4. Cardiomegaly. 5. Small nonobstructing bilateral renal calculi. RPTAT: AA .Wilmer Zhang MD, MD Date Time Electronically viewed and signed by .Wilmer Zhang MD, MD on 2016 17:45 .B/ CC: CAMILO MARTINEZ MD PROCEDURE: XR Chest. CLINICAL INDICATION: NG tube placement abdominal pain TECHNIQUE: AP Portable chest. COMPARISON: 05/22/2016 chest x-ray FINDINGS: The soft tissues and bones are remarkable for left precordial combination pacemaker and AICD. Status post median sternotomy and prior heart surgery is noted. An enteric tube is noted in the stomach and recommend advancement of approximately 5 cm. No focal infiltrates, masses, or effusions are noted. The mediastinum and heart are remarkable for moderate cardiomegaly and mild atherosclerotic vascular disease. IMPRESSION: 1. Enteric tube in stomach and recommend advancement at least 5 cm. 2. Left precordial combination pacemaker AICD and status post median sternotomy and heart surgery. 3. Moderate cardiomegaly and mild atherosclerotic vascular disease 4. No radiographic evidence for acute cardiopulmonary disease RPTAT: HDC .Unique Coelho MD, MD Date Time Electronically viewed and signed by .Unique Coelho MD, MD on 10/04/2016 20: 37 .C/ CC: CAMILO MARTINEZ MD EKG: Time: 18:14. Atrial paced rhythm. Ventricular rate 70. Left axis deviation and left bundle branch block. No ectopy. No acute ST-T wave changes. SANJUANITA SPAULDING Oct 04, 2016 21:13
[2016-10-04] MEDS ORDERED: KETAMINE 500 MG INJ ONE (21:19)
[2016-10-04] MEDS ORDERED: PROPOFOL 20 ML ONE (21:30)
[2016-10-04] MEDS ORDERED: LIDOCAINE 2% (SDV) 5 ML INJ ONE (21:30)
--- NOTE | 2016-10-04 22:08 | CONS ---
Date/Time of Note Date/Time of Note DATE: 10/04/16 TIME: 20:07 Assessment/Plan Assessment/Plan Additional Assessment/Plan [facility] INITIAL INPATIENT CONSULTATION NOTE DATE OF CONSULTATION: 10/04/2016 PLACE OF SERVICE: Emergency department at [facility] ASSESSMENT AND PLAN: A very-pleasant 65-year-old gentleman with multiple comorbid issues including severe cardiopulmonary disease, presenting with a very difficult issue of small bowel obstruction in the setting of incarcerated left inguinal hernia containing small bowel. Complicating factors include patient's severe cardiac disease, his need for anticoagulation (patient is on clopidogrel), his severe atherosclerotic vascular disease, significant renal disease, and a number of other medical issues which put him at significant risk for both morbidity and mortality with any operative intervention. Complexity of decision making was significant because of the above and the fact that patient needed an intervention in this high-risk setting given the possibility of ongoing and worsening ischemia of the loop of bowel that was incarcerated in his left inguinal region. I had several conversations with several consultants including intensive care unit with Dr Vail, chief of anesthesia (Dr. Hightower) and then cardiovascular anesthesia (Dr. 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 Zapata from emergency department, and the operating room director. I carefully considered all the available options and formulated the plan to have the patient ready in the operating room with the operating room staff on standby for possible emergency surgery if we are not able to reduce the hernia under sedation/general anesthesia in the operating room. Discussions with the patient's real estate sales manager concluded with no available risk reduction strategy in the setting and we also considered echocardiography not to be particularly helpful in this particular setting. The advantage of being able to reduce the patient in the operating room was to hopefully change the clinical picture from high risk emergency operation into a more clinically controlled situation where we could give the patient a bit more time, hope that the patient's bowel obstruction will resolve with the reduction of the bowel, hope that there has not been enough ischemia to cause damage to the integrity of the wall of the small intestine (low chance of this given the patient's normal white blood cell count, normal temperature, and most importantly the appearance of the bowel on the CT scan), and the overall hope that we can then have the patient off of his clopidogrel, maintained on heparin drip while he becomes clinically more stable and then eventually take the patient in for semielective repair of the left inguinal region, possibly even with laparoscopy. I tried my best to explain this to the patient and his son and answered all their questions to the best my ability. The patient and family appeared to understand and agreed with the proposed plan of care. With above assessment, I recommended the followin. Admit to ICU 2. NG decompression 3. N.p.o. 4. Judicious fluid resuscitation of no more than 250-500 cc bolus per episode 5. Intensive care unit consultation 6. Cardiology consultation with possible consideration for echocardiography 7. Schedule patient for emergency exam under anesthesia with possible need for repair of left inguinal hernia in the operating room Thank you very much for having me involved in the care of this very pleasant patient and wonderful family. Please feel free to contact me with any questions at [phone]. Disclaimer: Inadvertent spelling and grammatical errors are likely due to EHR/ dictation software use and do not reflect on the quality of delivered patient care. Updated clinical summary: A very-pleasant 65-year-old gentleman with multiple comorbid issues including severe cardiopulmonary disease, presenting with a very difficult issue of small bowel obstruction in the setting of incarcerated left inguinal hernia containing small bowel. Comorbidities: 1. Coronary artery disease, status post CABG October 2015 with subsequent graft closure requiring PTCA with stenting 2. Ischemic cardiomyopathy: Ejection fraction approximately 20-25% 3. Status post ICD for secondary prevention 4. Severe atherosclerotic vascular disease 5. Peripheral vascular disease 6. Chronic kidney disease with renal insufficiency (creatinine between 2-1/2-3- 1/2) 7. Right-sided renal artery stenosis, status post bilateral renal artery stents and angioplasty in July 2016 8. Hyperuricemia 9. Hypertension 10. Significant pulmonary disease with multiple admissions for lung problems including acute respiratory failure secondary to recurrent flash pulmonary edema and hypertensive emergency 11. Significant cardiac disease as above with multiple admissions for cardiac problems 12. Former smoker 13. 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 First-degree AV block, LAD, and left bundle branch block 15. Lesion of ramus coronary artery 16. History of shock 17. Hyperkalemia 18. Carotid stenosis, status post carotid endarterectomy 19. COPD 20. Extensive atherosclerotic vascular disease including ectasia of the distal thoracic aorta measuring up to 3.7 cm in multiple segments of intraluminal curvilinear calcifications suggesting multi focal chronic dissection (CT abdomen and pelvis [facility] 10/04/2016). 21. Cardiomegaly (CT abdomen and pelvis [facility] 10/04/2016). 22. Small nonobstructing bilateral renal calculi (CT abdomen and pelvis [facility] 10/04/2016). HISTORY OF PRESENT ILLNESS: The patient is a very pleasant 65-year-old gentleman with multiple and significant comorbid issues as outlined above, whom we were kindly asked to consult regarding management of his bowel obstruction with associated left-sided incarcerated inguinal hernia. Patient reported sharp 10 out of 10 abdominal pain in the groin region which started 3 days ago and has worsened, associated with nausea and vomiting, no alleviating factors and no exacerbating factors. Known left-sided inguinal hernia for at least the last few months. No prior episodes of bowel obstruction. No fevers or chills reported at home. Last bowel movement was on Sunday. No flatus since then. Emergency department physician try to reduce the mass but was unsuccessful. I also try to reduce the mass at bedside with putting the patient in Trendelenburg position, but the patient could not tolerate it due to pain. No shortness of breath or chest pain at this time. [place] sweaty. ALLERGIES: NO KNOWN DRUG ALLERGIES MEDICATIONS Carefully recorded and reviewed in the electronic health record system multiple. SOCIAL HISTORY: The patient is and has 4 children. 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 Also significant smoking history. REVIEW OF SYSTEMS: Other than mentioned, there are no pertinent positives or pertinent negatives in a complete 14 point review of systems. PHYSICAL EXAMINATION GENERAL: The patient appears to be a very pleasant gentleman of [place] descent laying in bed and appearing stated age and sweaty and in mild distress, appearing fatigued and weak. BMI: 24.2 VITAL SIGNS: Carefully recorded and reviewed in the electronic health record system HEENT: Normocephalic and atraumatic. Extraocular muscles and hearing are grossly intact bilaterally and symmetrically. Sclerae are nonicteric. Oral cavity is clear; oral mucosa appear to be pink and moist. Dentition: fair. NECK: Supple. There is no lymphadenopathy or JVD. There is no submental, submandibular or supraclavicular lymphadenopathy. CHEST: Rises symmetrically with each breath; patient is breathing comfortably. There are no audible wheezes, rales or rhonchi on the gross exam. HEART: Pulse is regular and palpable on the right wrist. Capillary refill is normal. Carotid pulses are palpable bilaterally and symmetrically in the neck. EXTREMITIES: Lower extremities contain no pitting edema around the ankles bilaterally and symmetrically. ABDOMEN: Abdomen is soft, nontender and mildly distended. No evidence of ascites, organomegaly, caput medusae, engorged subcutaneous veins, or other abnormalities. There are no peritoneal signs or guarding. SKIN: Appears to be pink and feels warm to touch. Right groin contains no evidence of any hernia. Left groin shows a bulge with normal-appearing skin over it. It is tender to palpation and not reducible as mentioned above. Genitals appear to be normal. NEUROLOGIC: Awake, alert, and follows commands appropriately. LABORATORY DATA: Carefully reviewed and recorded in the patient's office chart white blood cell count 6.8, hemoglobin 12.2, l platelets 381. Sodium 134, potassium 3.3, CO2 27, creatinine 2.63, liver function and injury parameters normal, albumin 4.6 prior to hydration, lipase 35, INR 1.04. IMAGING: As above. Please note that I've personally reviewed all pertinent available images and I agree in general with their overall reported findings. CT abdomen and pelvis 10/04/2016 IMPRESSION: 1. Small bowel obstruction at the level of the distal ileum secondary to moderate left inguinal hernia. There is questionable inflammatory change within the hernia sac and a small amount of fluid, and strangulation cannot be excluded based on this appearance. 2. Small abdominopelvic ascites. 3. Extensive atherosclerotic vascular disease including ectasia of the distal thoracic aorta measuring up to 3.7 cm in multiple segments of intraluminal curvilinear calcifications suggesting multi focal chronic dissection. 4. Cardiomegaly. 5. Small nonobstructing bilateral renal calculi. Consultation Date/Type/Reason Admit Date/Time 10/04/16 Psychological: anxiety Past Surgical History Past Surgical Hx: coronary bypass surgery, other Social History Alcohol Use: none Smoking Status: Former smoker Drug Use: none Exam/Review of Systems Vital Signs Vitals Vital Signs Date Time Temp Pulse Resp B/P Pulse Ox O2 Delivery O2 Flow Rate FiO2 10/04/16 20:11 98.1 70 18 126/72 95 Room Air Results Result Diagram: 10/04/16 1610 10/04/16 1610 Results 24 hrs Laboratory Tests Test 10/04/16 16:10 White Blood Count 6.8 # Red Blood Count 4.48 L Hemoglobin 12.2 L Hematocrit 38.3 L Mean Corpuscular Volume 85.5 Mean Corpuscular Hemoglobin 27.2 L Mean Corpuscular Hemoglobin Concent 31.9 L Red Cell Distribution Width 13.1 Platelet Count 381 Mean Platelet Volume 10.8 H Neutrophils % 51.0 Band Neutrophils % 23.0 H Lymphocytes % 8.0 L Monocytes % 17.0 H Eosinophils % Basophils % 1.0 Neutrophils # 3.5 Lymphocytes # 0.5 L Monocytes # 1.2 H Eosinophils # Basophils # 0.1 Prothrombin Time 13.6 Prothrombin Time Ratio 1.1 INR International Normalized Ratio 1.04 Activated Partial Thromboplast Time 39.3 H Sodium Level 134 L Potassium Level 3.3 L Chloride Level 94 L Carbon Dioxide Level 27 Anion Gap 16 Blood Urea Nitrogen 47 H Creatinine 2.63 H Glucose Level 132 Calcium Level 9.4 Total Bilirubin 0.8 Direct Bilirubin 0.00 Indirect Bilirubin 0.8 Aspartate Amino Transf (AST/SGOT) 25 Alanine Aminotransferase (ALT/SGPT) 31 Alkaline Phosphatase 73 Total Protein 7.6 Albumin 4.6 Globulin 3.00 Albumin/Globulin Ratio 1.53 Lipase 35 Medications Medications Current Medications Ondansetron HCl (Zofran Inj) 4 mg Q6H PRN IV NAUSEA AND/OR VOMITING; Start 10/04 at 19:00 Acetaminophen (Tylenol Tab) 650 mg Q6H PRN PO PAIN LEVEL 1-3 OR FEVER; Start at 19:00 Acetaminophen/ Hydrocodone Bitart ([place] (5/325)) 1 tab Q6H PRN PO MODERATE PAIN LEVEL 4-6; Start 10/04/16 at 19:00 Morphine Sulfate (morphine) 2 mg Q4H PRN IV SEVERE PAIN LEVEL 7-10; Start at 19:00 Docusate Sodium (Colace) 100 mg Q12H PRN PO CONSTIPATION; Start 10/04/16 at 19: 00 Magnesium Hydroxide (Milk Of Mag) 30 ml DAILY PRN PO CONSTIPATION; Start at 19:00 Sodium Biphosphate/ Sodium Phosphate (Fleet Enema) 133 ml DAILY PRN [place] CONSTIPATION; Start 10/04/16 at 19:00 Pantoprazole 40 mg 40 mg DAILY@06 IV ; Start 10/05/16 at 06:00 Sodium Chloride (1/2 NS) 1,000 ml @ 75 mls/hr [id number] IV ; Start 10/04/16 at 18: 59 Lorazepam (Ativan) 0.5 mg Q6H PRN IV ANXIETY; Start 10/04/16 at 19:00 Hydralazine HCl (Apresoline) 10 mg Q6H PRN IV ELEVATED BLOOD PRESSURE; Start at 19:00 Nitroglycerin (Nitroglycerin (Sl Tab) 0.4 Mg) 1 tab Q5M PRN SL ANGINA; Start at 19:00 Eye Lubricant (Artificial Tears Oph) 1 drop TID BOTH EYES ; Start 10/04/16 at 21: 00 Insulin Aspart (Novolog Insulin Pen) NOVOLOG *MILD* ALGORI... Q4 SC ; Start 10/04 at 21:00 Amiodarone HCl (Cordarone) 100 mg DAILY PO ; Start 10/05/16 at 09:00 Aspirin (Aspirin) 81 mg DAILY PO ; Start 10/05/16 at 09:00 Atorvastatin Calcium (Lipitor) 80 mg QHS PO ; Start 10/04/16 at 21:00 Carvedilol (Coreg) 12.5 mg BID PO ; Start 10/04/16 at 21:00 EZETIMIBE (Zetia) 10 mg DAILY PO ; Start 10/05/16 at 09:00 Hydralazine HCl (Apresoline) 100 mg TID PO ; Start 10/04/16 at 21:00 Isosorbide Dinitrate (Isordil) 20 mg TID PO ; Start 10/04/16 at 21:00 Paroxetine HCl (Paxil) 10 mg DAILY PO ; Start 10/05/16 at 09:00 Zolpidem Tartrate (Ambien) 10 mg QHS PRN PO INSOMNIA; Start 10/04/16 at 19:00 Miscellaneous Information 1 ea NOTE XX ; Start 10/04/16 at 19:30 Glucose (Glutose) 15 gm Q15M PRN PO DECREASED GLUCOSE; Start 10/04/16 at 19:30 Glucose (Glutose) 22.5 gm Q15M PRN PO DECREASED GLUCOSE; Start 10/04/16 at 19:30 Dextrose (D50w Syringe) 25 ml Q15M PRN IV DECREASED GLUCOSE; Start 10/04/16 at 19:30 Dextrose (D50w Syringe) 50 ml Q15M PRN IV DECREASED GLUCOSE; Start 10/04/16 at 19:30 Glucagon (Glucagen) 1 mg Q15M PRN IM DECREASED GLUCOSE; Start 10/04/16 at 19:30 Glucose 15 gm 15 gm Q15M PRN BUCCAL DECREASED GLUCOSE; Start 10/04/16 at 19:30 Potassium Chloride/Dextrose/ Sod Cl (D5-1/2ns + KCl 20 Meq) 1,000 ml @ 70 mls/ hr [id number] ONCE IV ; Start 10/04/16 at 19:08; Stop 10/05/16 at 09:25 BLESSING HINSON M.D. Oct 04, 2016 22:08
--- NOTE | 2016-10-04 22:13 | OPR ---
Date/Time of Note Date/Time of Note DATE: 10/04/16 TIME: 22:13 Operative Report Procedure Description [facility] INPATIENT OPERATIVE NOTE PLACE OF SERVICE: [facility] DATE OF SURGERY: 10/04/2016 PREOPERATIVE DIAGNOSIS: 1. Small bowel obstruction with incarcerated left inguinal hernia 2. Coronary artery disease, status post CABG October 2015 with subsequent graft closure requiring PTCA with stenting 3. Ischemic cardiomyopathy: Ejection fraction approximately 20-25% 4. Status post ICD for secondary prevention 5. Severe atherosclerotic vascular disease 6. Peripheral vascular disease 7. Chronic kidney disease with renal insufficiency (creatinine between 2-1/2-3- 1/2) 8. Right-sided renal artery stenosis, status post bilateral renal artery stents and angioplasty in July 2016 9. Hypertension 10. Significant pulmonary disease with multiple admissions for lung problems including acute respiratory failure secondary to recurrent flash pulmonary edema and hypertensive emergency 11. Significant cardiac disease as above with multiple admissions for cardiac problems 12. Former smoker 13. 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 First-degree AV block, LAD, and left bundle branch block 15. Lesion of ramus coronary artery 16. History of shock 17. Hyperkalemia 18. Carotid stenosis, status post carotid endarterectomy 19. COPD 20. Extensive atherosclerotic vascular disease including ectasia of the distal thoracic aorta measuring up to 3.7 cm in multiple segments of intraluminal curvilinear calcifications suggesting multi focal chronic dissection (CT abdomen and pelvis [facility] 10/04/2016). 21. Cardiomegaly (CT abdomen and pelvis [facility] 10/04/2016). 22. Small nonobstructing bilateral renal calculi (CT abdomen and pelvis [facility] 10/04/2016). 23. Hyperuricemia POSTOPERATIVE DIAGNOSIS: 1. Small bowel obstruction with incarcerated left inguinal hernia 2. Coronary artery disease, status post CABG October 2015 with subsequent graft closure requiring PTCA with stenting 3. Ischemic cardiomyopathy: Ejection fraction approximately 20-25% 4. Status post ICD for secondary prevention 5. Severe atherosclerotic vascular disease 6. Peripheral vascular disease 7. Chronic kidney disease with renal insufficiency (creatinine between 2-1/2-3- 1/2) 8. Right-sided renal artery stenosis, status post bilateral renal artery stents and angioplasty in July 2016 9. Hypertension 10. Significant pulmonary disease with multiple admissions for lung problems including acute respiratory failure secondary to recurrent flash pulmonary edema and hypertensive emergency 11. Significant cardiac disease as above with multiple admissions for cardiac problems 12. Former smoker 13. 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 First-degree AV block, LAD, and left bundle branch block 15. Lesion of ramus coronary artery 16. History of shock 17. Hyperkalemia 18. Carotid stenosis, status post carotid endarterectomy 19. COPD 20. Extensive atherosclerotic vascular disease including ectasia of the distal thoracic aorta measuring up to 3.7 cm in multiple segments of intraluminal curvilinear calcifications suggesting multi focal chronic dissection (CT abdomen and pelvis [facility] 10/04/2016). 21. Cardiomegaly (CT abdomen and pelvis [facility] 10/04/2016). 22. Small nonobstructing bilateral renal calculi (CT abdomen and pelvis [facility] 10/04/2016). 23. Hyperuricemia OPERATION: 1. Examination under anesthesia with reduction of left inguinal hernia incarceration SURGEON: Blessing Hinson M.D. [employer]ER: None ANESTHESIA: General endotracheal tube anesthesia ANESTHESIOLOGIST: Rosemarei Love M.D. BRIEF SUMMARY: An otherwise uncomplicated exam under anesthesia with successful reduction of left inguinal incarcerated region was performed without any obvious evident complication. Updated clinical summary: A very-pleasant 65-year-old gentleman with multiple comorbid issues including severe cardiopulmonary disease, presenting with a very difficult issue of small bowel obstruction in the setting of incarcerated left inguinal hernia containing small bowel. Comorbidities: 1. Coronary artery disease, status post CABG October 2015 with subsequent graft closure requiring PTCA with stenting 2. Ischemic cardiomyopathy: Ejection fraction approximately 20-25% 3. Status post ICD for secondary prevention 4. Severe atherosclerotic vascular disease 5. Peripheral vascular disease 6. Chronic kidney disease with renal insufficiency (creatinine between 2-1/2-3- 1/2) 7. Right-sided renal artery stenosis, status post bilateral renal artery stents and angioplasty in July 2016 8. Hyperuricemia 9. Hypertension 10. Significant pulmonary disease with multiple admissions for lung problems including acute respiratory failure secondary to recurrent flash pulmonary edema and hypertensive emergency 11. Significant cardiac disease as above with multiple admissions for cardiac problems 12. Former smoker 13. 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 First-degree AV block, LAD, and left bundle branch block 15. Lesion of ramus coronary artery 16. History of shock 17. Hyperkalemia 18. Carotid stenosis, status post carotid endarterectomy 19. COPD 20. Extensive atherosclerotic vascular disease including ectasia of the distal thoracic aorta measuring up to 3.7 cm in multiple segments of intraluminal curvilinear calcifications suggesting multi focal chronic dissection (CT abdomen and pelvis [facility] 10/04/2016). 21. Cardiomegaly (CT abdomen and pelvis [facility] 10/04/2016). 22. Small nonobstructing bilateral renal calculi (CT abdomen and pelvis [facility] 10/04/2016). BRIEF HISTORY: The patient is a very pleasant 65-year-old gentleman with multiple comorbid issues including severe cardiopulmonary disease, presenting with a very difficult issue of small bowel obstruction in the setting of incarcerated left inguinal hernia containing small bowel. Complicating factors include patient's severe cardiac disease, his need for anticoagulation (patient is on clopidogrel), his severe atherosclerotic vascular disease, significant renal disease, and a number of other medical issues which put him at significant risk for both morbidity and mortality with any operative intervention. Complexity of decision making was significant because of the above and the fact that patient needed an intervention in this high-risk setting given the possibility of ongoing and worsening ischemia of the loop of bowel that was incarcerated in his left inguinal region. I had several conversations with several consultants including intensive care unit with Dr Vail, chief of anesthesia (Dr. Hightower) and then cardiovascular anesthesia (Dr. 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 Zapata from emergency department, and the operating room director. I carefully considered all the available options and formulated the plan to have the patient ready in the operating room with the operating room staff on standby for possible emergency surgery if we are not able to reduce the hernia under sedation/general anesthesia in the operating room. Discussions with the patient's ore dryer concluded with no available risk reduction strategy in the setting and we also considered echocardiography not to be particularly helpful in this particular setting. The advantage of being able to reduce the patient in the operating room was to hopefully change the clinical picture from high risk emergency operation into a more clinically controlled situation where we could give the patient a bit more time, hope that the patient's bowel obstruction will resolve with the reduction of the bowel, hope that there has not been enough ischemia to cause damage to the integrity of the wall of the small intestine (low chance of this given the patient's normal white blood cell count, normal temperature, and most importantly the appearance of the bowel on the CT scan), and the overall hope that we can then have the patient off of his clopidogrel, maintained on heparin drip while he becomes clinically more stable and then eventually take the patient in for semielective repair of the left inguinal region, possibly even with laparoscopy. I tried my best to explain this to the patient and his son and answered all their questions to the best my ability. The patient and family appeared to understand and agreed with the proposed plan of care. For a detailed report of my consultation with patient and family, please refer to my separate consultation note. STATEMENT OF THE INFORMED CONSENT: The patient and family appeared to understand the risks of the operation to include, but not be limited to risk of postoperative pain and scar tissue, possible infection or bleeding requiring other interventions such as opening the wound, placement of drainage catheters, or other operative interventions; possible injury to surrounding to structures including bowel, bladder, bile duct, or blood vessels, or solid organs such as liver, kidney, or pancreas requiring other interventions or procedures; possible leakage of bowel from anastomotic sites or suture lines causing significant increase in morbidity and mortality and requiring multiple interventions including but not limited to, placement of drainage catheters, imaging studies, as well as operative interventions; possible other source of sepsis such as urinary tract infections or pneumonias, or other sources of potentially life threatening problems such as deep venous thrombus formation causing pulmonary embolism, myocardial arrhythmias and infarctions, and even . We also briefly discussed the potential need to receive blood products and their potential complications of blood transfusion reactions, transmission of infections, or other complications. After careful consideration of all their options, the patient and family appeared to understand and wished to proceed with surgery. DESCRIPTION OF PROCEDURE: After obtaining informed consent, the patient was brought into the operating room and was placed in a normal supine position, where successful moderate to deep sedation was induced by anesthesia. Careful monitoring was ongoing while I did an exam under anesthesia with the patient in Trendelenburg position. After very careful, gentle but steady pressure on the left groin bulge, I was able to reduce it into the abdominal cavity. Patient's internal ring was approximately 1-1/2-2 cm in greatest dimension. Patient tolerated this without any obvious evidence of complication and certainly no cardiopulmonary changes. He remained extubated throughout the entire process. According to our preoperative plans, we decided to conclude the procedure at this time. ESTIMATED BLOOD LOSS: None BLOOD OR BLOOD PRODUCT TRANSFUSIONS: None to my knowledge. SPECIMENS: None COMPLICATIONS: None. DISPOSITION: Recovery area. Disclaimer: Inadvertent spelling and grammatical errors are likely due to EHR/ dictation software use and do not reflect on the quality of delivered patient care. Also, please note that the electronic time recorded on this node does not necessarily reflect the actual time of the visit. BLESSING HINSON M.D. Oct 04, 2016 22:13
[2016-10-04 22:35] LABS: INR 1.1; PARTIAL THROMBOPLASTIN TIME 34.5 Sec (25.0-35.0); PROTIME 14.2 Sec (12.2-14.2); PT RATIO 1.1
[2016-10-04 22:51] VITALS: PULSE 70
[2016-10-04] MEDS: ISOSORBIDE DINITRATE 20 MG TAB PO SCH (22:53)
[2016-10-04 23:00] VITALS: BP 139/64; PULSE 70; RESP 15
[2016-10-04] MEDS: PIPER-TAZO 2.25 GM (PMX) 50 ML IVPB SCH (23:25)
[2016-10-04 23:30] VITALS: BP 147/70; PULSE 74; RESP 15
[2016-10-05] VITALS (21 sets, daily range): BP systolic 108–158; BP diastolic 57–75; PULSE 70–77; RESP 11–19; Ht 165.1 cm; Wt 68.0 kg
[2016-10-05] MEDS: INSULIN ASPART [NOVOLOG] 3 ML PEN SC SCH ×6 (01:00→21:00)
[2016-10-05] MEDS: PANTOPRAZOLE 40 MG INJ IV SCH (05:15)
[2016-10-05] MEDS: PIPER-TAZO 2.25 GM (PMX) 50 ML IVPB SCH ×3 (05:15→21:53)
[2016-10-05 05:45] LABS: ADD SCAN DIFF NO
[2016-10-05 05:53] LABS: BASOPHILS % 0.3 % (0.0-2.0); EOSINOPHILS % 0.5 % (0.0-7.0); HEMATOCRIT 34.8 % (42.0-52.0); HEMOGLOBIN 11.1 g/dl (14.0-18.0); LYMPHOCYTES # 0.9 10^3/ul (0.8-2.9); LYMPHOCYTES % 14.7 % (15.0-51.0); MEAN CORPUSCULAR HEMOGLOBIN 28.2 pg (29.0-33.0); MEAN CORPUSCULAR HGB CONC 31.9 g/dl (32.0-37.0); MEAN CORPUSCULAR VOLUME 88.3 fl (82.0-101.0); MEAN PLATELET VOLUME 11.2 fl (7.4-10.4); MONOCYTES % 17.3 % (0.0-11.0); NEUTROPHILS % 66.9 % (39.0-77.0); PLATELET COUNT 316 10^3/UL (140-415); RED BLOOD COUNT 3.94 10^6/ul (4.70-6.10); RED CELL DISTRIBUTION WIDTH 12.9 % (11.5-14.5); WHITE BLOOD COUNT 5.9 10^3/ul (4.8-10.8)
[2016-10-05 06:03] LABS: INR 1.09; PROTIME 14.1 Sec (12.2-14.2); PT RATIO 1.1
[2016-10-05 06:04] LABS: PARTIAL THROMBOPLASTIN TIME 35.6 Sec (25.0-35.0)
[2016-10-05 06:11] LABS: ALBUMIN 3.8 g/dl (3.3-4.9); ALBUMIN/GLOBULIN RATIO 1.52; BILIRUBIN,INDIRECT 0.5 mg/dl (0-1.1); BILIRUBIN,TOTAL 0.5 mg/dl (0.2-1.3); CALCIUM 9.1 mg/dl (8.4-10.2); CREATININE 2.35 mg/dl (0.61-1.24); POTASSIUM 3.4 mmol/L (3.5-5.1); TOTAL PROTEIN 6.3 g/dl (6.1-8.1)
[2016-10-05 07:17] LABS: CHOL/HDL RATIO 3.7 RATIO
[2016-10-05 07:46] LABS: THYROID STIMULATING HORMONE 1.6 MIU/L (0.465-4.680)
[2016-10-05] MEDS: ARTIFICIAL TEARS 15 ML OPH BOTH EYES SCH ×3 (08:08→21:13)
[2016-10-05] MEDS ORDERED: PAROXETINE 10 MG TAB PO SCH (09:00)
[2016-10-05] MEDS: EZETIMIBE 10 MG TAB PO SCH (09:29)
[2016-10-05] MEDS: ASPIRIN 81 MG TAB PO SCH (09:29)
[2016-10-05] MEDS: AMIODARONE 200 MG TAB PO SCH (09:30)
[2016-10-05] MEDS ORDERED: POTASSIUM CHLORIDE 250 ML IVPB ONE (10:00)
--- NOTE | 2016-10-05 10:01 | RADRPT ---
PROCEDURE: XR Abdomen CLINICAL INDICATION: Postop follow-up TECHNIQUE: An AP supine radiograph of the abdomen was submitted. COMPARISON: None FINDINGS: An NG tube is evident with the tip distal to the gastroesophageal junction. A Crespo catheter is see n to be in place. Organized air distended segments of small bowel are seen through the abdomen with a paucity of gas seen within the colon suspicious for the distal small bowel obstruction. No organomegaly or discrete mass is identified. Atherosclerotic vascular calcification is evident. The osseous elements appear unremarkable. There is evidence of a midline sternotomy and the heart is mildly enlarged. There is a right perihi lar infiltrate. IMPRESSION: 1. Findings compatible with a distal small bowel obstruction. 2. An NG tube and a Crespo catheter are seen to be in place. 3. Vascular calcification 4. Previous sternotomy with mild cardiomegaly with pacemaker leads in place. 5. Right perihilar infiltrate. Physician Tierra Date Time Electronically viewed and signed by Physician Tierra on 10/05/2016 10:01 /
[2016-10-05] MEDS: SOD CHLORIDE 0.45% 1,000 ML IV SCH (10:04)
[2016-10-05] MEDS: ISOSORBIDE DINITRATE 20 MG TAB PO SCH ×3 (10:24→21:15)
--- NOTE | 2016-10-05 10:31 | CONS ---
Date/Time of Note Date/Time of Note DATE: 10/05/16 TIME: 10:24 Consult Date/Type/Reason Admit Date/Time Initial Consult Date 10/05/16 Type of Consultation: Pulmonary ICU Reason for Consultation Respiratory distress Subjective 65-year-old gentleman with multiple medical problems including COPD congestive cardiac failure with decreased ejection fraction recurrent hypoxemic respiratory failure presents with increasing abdominal pain nausea vomiting left lower quadrant pain found to have incarcerated left inguinal hernia. Patient was evaluated by Dr. Decker taken to surgery last night for surgical repair. Postoperatively he was extubated and now remains comfortable on nasal cannula and her intensive care unit not requiring vasopressor support. Currently he denies any chest pain or palpitations no orthopnea or PND. No nausea or vomiting. He has had no recent exacerbations of his COPD following his last discharge. Preoperatively patient was evaluated by cardiovascular anesthesia and cardiology. Past medical history Coronary artery disease with ischemic cardiomyopathy decreased ejection fraction 20-25% ICD placement Atherosclerotic vascular disease Chronic kidney disease Ex-smoker with history of COPD, possible paratracheal mass patient declined further workup Hypertension Renal artery stenosis Objective Vital Signs Date Time Temp Pulse Resp B/P Pulse Ox O2 Delivery O2 Flow Rate FiO2 10/05/16 09:00 76 15 141/69 96 10/05/16 07:49 Nasal Cannula 2.0 10/05/16 07:00 97.7 10/04/16 23:35 27 Intake and Output 10/04/16 10/04/16 10/05/16 15:00 23:00 07:00 Intake Total 0 ml 770 ml Output Total 155 ml 785 ml Balance -155 ml -15 ml Exam GENERAL: Elderly Khmer gentleman awake alert oriented in full complete sentences no respiratory distress VITAL SIGNS: per chart NECK: Supple. No JVD or lymphadenopathy. CARDIAC EXAM: S1, S2. No added sounds or murmurs. CHEST: clear bilaterally, No added sounds, rales or wheezes ABDOMEN: Soft, nontender. No guarding or rebound. EXTREMITIES: No cyanosis, clubbing or edema. NEUROLOGIC: Generalized weakness. No focal deficits. Results/Medications Result Diagram: 10/05/16 0515 10/05/16 0515 Results 24 hrs Laboratory Tests Test 10/04/16 16:10 10/04/16 22:05 10/04/16 23:21 10/05/16 05:14 White Blood Count 6.8 # Red Blood Count 4.48 L Hemoglobin 12.2 L Hematocrit 38.3 L Mean Corpuscular Volume 85.5 Mean Corpuscular Hemoglobin 27.2 L Mean Corpuscular Hemoglobin Concent 31.9 L Red Cell Distribution Width 13.1 Platelet Count 381 Mean Platelet Volume 10.8 H Neutrophils % 51.0 Band Neutrophils % 23.0 H Lymphocytes % 8.0 L Monocytes % 17.0 H Eosinophils % Basophils % 1.0 Neutrophils # 3.5 Lymphocytes # 0.5 L Monocytes # 1.2 H Eosinophils # Basophils # 0.1 Prothrombin Time 13.6 14.2 Prothrombin Time Ratio 1.1 1.1 INR International Normalized Ratio 1.04 1.10 Activated Partial Thromboplast Time 39.3 H 34.5 Sodium Level 134 L Potassium Level 3.3 L Chloride Level 94 L Carbon Dioxide Level 27 Anion Gap 16 Blood Urea Nitrogen 47 H Creatinine 2.63 H Glucose Level 132 Calcium Level 9.4 Total Bilirubin 0.8 Direct Bilirubin 0.00 Indirect Bilirubin 0.8 Aspartate Amino Transf (AST/SGOT) 25 Alanine Aminotransferase (ALT/SGPT) 31 Alkaline Phosphatase 73 Total Protein 7.6 Albumin 4.6 Globulin 3.00 Albumin/Globulin Ratio 1.53 Lipase 35 Free Thyroxine 1.89 Bedside Glucose 107 105 Test 10/05/16 05:15 10/05/16 08:16 White Blood Count 5.9 Red Blood Count 3.94 L Hemoglobin 11.1 L Hematocrit 34.8 L Mean Corpuscular Volume 88.3 Mean Corpuscular Hemoglobin 28.2 L Mean Corpuscular Hemoglobin Concent 31.9 L Red Cell Distribution Width 12.9 Platelet Count 316 Mean Platelet Volume 11.2 H Neutrophils % 66.9 Lymphocytes % 14.7 L Monocytes % 17.3 H Eosinophils % 0.5 Basophils % 0.3 Nucleated Red Blood Cells % 0.0 Neutrophils # 4.0 Lymphocytes # 0.9 Monocytes # 1.0 H Eosinophils # 0.0 Basophils # 0.0 Nucleated Red Blood Cells # 0.0 Prothrombin Time 14.1 Prothrombin Time Ratio 1.1 INR International Normalized Ratio 1.09 Activated Partial Thromboplast Time 35.6 H Sodium Level 140 Potassium Level 3.4 L Chloride Level 96 L Carbon Dioxide Level 29 Anion Gap 18 H Blood Urea Nitrogen 46 H Creatinine 2.35 H Glucose Level 114 Hemoglobin A1c 5.6 Lactic Acid Level 0.8 Calcium Level 9.1 Phosphorus Level 5.0 H Magnesium Level 2.0 Total Bilirubin 0.5 Direct Bilirubin 0.00 Indirect Bilirubin 0.5 Aspartate Amino Transf (AST/SGOT) 26 Alanine Aminotransferase (ALT/SGPT) 30 Alkaline Phosphatase 54 Total Protein 6.3 # Albumin 3.8 Globulin 2.50 Albumin/Globulin Ratio 1.52 Triglycerides Level 127 Cholesterol Level 129 LDL Cholesterol, Calculated 70 HDL Cholesterol 34 Cholesterol/HDL Ratio 3.7 Lipase 16 L Thyroid Stimulating Hormone (TSH) 1.600 Bedside Glucose 110 Medications Current Medications Ondansetron HCl (Zofran Inj) 4 mg Q6H PRN IV NAUSEA AND/OR VOMITING; Start 10/04 at 19:00 Acetaminophen (Tylenol Tab) 650 mg Q6H PRN PO PAIN LEVEL 1-3 OR FEVER; Start at 19:00 Acetaminophen/ Hydrocodone Bitart ([place] (5/325)) 1 tab Q6H PRN PO MODERATE PAIN LEVEL 4-6; Start 10/04/16 at 19:00 Morphine Sulfate (morphine) 2 mg Q4H PRN IV SEVERE PAIN LEVEL 7-10; Start at 19:00 Docusate Sodium (Colace) 100 mg Q12H PRN PO CONSTIPATION; Start 10/04/16 at 19: 00 Magnesium Hydroxide (Milk Of Mag) 30 ml DAILY PRN PO CONSTIPATION; Start at 19:00 Sodium Biphosphate/ Sodium Phosphate (Fleet Enema) 133 ml DAILY PRN OR CONSTIPATION; Start 10/04/16 at 19:00 Pantoprazole 40 mg 40 mg DAILY@06 IV Last administered on 10/05/16 05:15; Admin Dose 40 MG; Start 10/05/16 at 06:00 Sodium Chloride (1/2 NS) 1,000 ml @ 30 mls/hr Q24H IV Last administered on 10/05 10:04; Admin Dose 30 MLS/HR; Start 10/04/16 at 18:59 Hydralazine HCl (Apresoline) 10 mg Q6H PRN IV ELEVATED BLOOD PRESSURE; Start at 19:00 Nitroglycerin (Nitroglycerin (Sl Tab) 0.4 Mg) 1 tab Q5M PRN SL ANGINA; Start at 19:00 Eye Lubricant (Artificial Tears Oph) 1 drop TID BOTH EYES Last administered on 10/05/16 08:08; Admin Dose 1 DROP; Start 10/04/16 at 21:00 Insulin Aspart (Novolog Insulin Pen) NOVOLOG *MILD* ALGORI... Q4 SC ; Start 10/04 at 21:00 Amiodarone HCl (Cordarone) 100 mg DAILY PO Last administered on 10/05/16 09:30 ; Admin Dose 100 MG; Start 10/05/16 at 09:00 Aspirin (Aspirin) 81 mg DAILY PO Last administered on 10/05/16 09:29; Admin Dose 81 MG; Start 10/05/16 at 09:00 Atorvastatin Calcium (Lipitor) 80 mg QHS PO ; Start 10/04/16 at 21:00 Carvedilol (Coreg) 12.5 mg BID PO Last administered on 10/05/16 09:29; Admin Dose 12.5 MG; Start 10/04/16 at 21:00 EZETIMIBE (Zetia) 10 mg DAILY PO Last administered on 10/05/16 09:29; Admin Dose 10 MG; Start 10/05/16 at 09:00 Hydralazine HCl (Apresoline) 100 mg TID PO Last administered on 10/05/16 09:28 ; Admin Dose 100 MG; Start 10/04/16 at 21:00 Isosorbide Dinitrate (Isordil) 20 mg TID PO ; Start 10/04/16 at 21:00 Zolpidem Tartrate (Ambien) 10 mg QHS PRN PO INSOMNIA; Start 10/04/16 at 19:00 Miscellaneous Information 1 ea NOTE XX ; Start 10/04/16 at 19:30 Glucose (Glutose) 15 gm Q15M PRN PO DECREASED GLUCOSE; Start 10/04/16 at 19:30 Glucose (Glutose) 22.5 gm Q15M PRN PO DECREASED GLUCOSE; Start 10/04/16 at 19:30 Dextrose (D50w Syringe) 25 ml Q15M PRN IV DECREASED GLUCOSE; Start 10/04/16 at 19:30 Dextrose (D50w Syringe) 50 ml Q15M PRN IV DECREASED GLUCOSE; Start 10/04/16 at 19:30 Glucagon (Glucagen) 1 mg Q15M PRN IM DECREASED GLUCOSE; Start 10/04/16 at 19:30 Glucose 15 gm 15 gm Q15M PRN BUCCAL DECREASED GLUCOSE; Start 10/04/16 at 19:30 Piperacillin Sod/ Tazobactam Sod 50 ml @ 100 mls/hr Q8 IVPB Last administered on 10/05/16t 05:15; Admin Dose 100 MLS/HR; Start 10/04/16 at 23:00 Potassium Chloride (KCl 40 MEQ/250 ML NS) 250 ml @ 62.5 mls/hr ONCE ONCE IVPB ; Start 10/05/16 at 10:00; Stop 10/05/16 at 13:59 Sertraline HCl (Zoloft) 50 mg DAILY PO ; Start 10/05/16 at 17:00 Clonazepam (Klonopin) 0.5 mg Q8H PRN PO ANXIETY; Start 10/05/16 at 10:30 Assessment/Plan Chief Complaint/Hosp Course Assessment Incarcerated inguinal hernia status post surgical repair. Doing extremely well from surgical standpoint. Stable COPD Stable coronary artery disease with ischemic cardiomyopathy Chronic kidney disease with baseline creatinine around 2 Plan Continue postop antibiotics Continue gentle hydration Resume antiplatelet therapy per cardiology and general surgery Advance diet per surgery Bronchodilators as needed Patient stable to transfer to telemetry from pulmonary standpoint Problems: MARY BARKER MD, [facility] Oct 05, 2016 10:31
--- NOTE | 2016-10-05 17:02 | CONS ---
Date/Time of Note Date/Time of Note DATE: 10/05/16 TIME: 16:51 Assessment/Plan Assessment/Plan Chief Complaint/Hosp Course SBO with incarcerated inguinal hernia: Improved after hernia reduction under anesthesia. Plan for definitive repair in a few days. This would be an intermediate risk surgery and he is at intermediate-high risk for surgery due to his prior cardiac issues though all is stable at this time. h/o CAD s/p CABG/PCI: No e/o ischemia ICM (EF 20%): compensated by my exam Recurrent pulm edema: from HTN and renal artery stenosis as well as anxiety. No recurrence >1 month VT s/p ICD PVD s/p bilateral renal artery stenting and CEA CKD (baseline Cr mid 2s) HTN -ok to proceed with surgery as planned as pt is medically optimized at this time -d/c IVF -advance diet as tolerated -start lasix 20mg PO daily home dose tomorrow -ok to hold plavix until after surgery as >6 months post PCI -continue ASA ivana-op -continue coreg 12.5mg BID -hydralazine 100mg TID -isordil 20mg TID Problems: Consultation Date/Type/Reason Admit Date/Time Date of Consultation: Oct 05, 2016 Type of Consultation: Cardiology Reason for Consultation CHF/CABG/PCI/ICD Referring Provider: SANJUANITA SPAULDING Hx of Present Illness 65 yo M well known to me with h/o CAD s/p CABG, ICM (EF 20%), recurrent pulm edema, s/p PCI, ICD, PVD s/p bilateral renal artery stenting and CEA, CKD ( baseline Cr mid 2s), HTN, who presented due to abdominal pain/N/V and was found to have bowel obstruction secondary to incarcerated left inguinal hernia. The pt was urgently taken to the OR and had reduction of his hernia under propofol but without intubation. He is currently doing well and his symptoms have resolved. No chest pain or SOB. Prior to this he has been doing well for the past month. Psychological: anxiety Past Medical History per HPI Past Surgical History Past Surgical Hx: coronary bypass surgery, other Social History Alcohol Use: none Smoking Status: Unknown if ever smoked Drug Use: none Exam/Review of Systems Vital Signs Vitals Vital Signs Date Time Temp Pulse Resp B/P Pulse Ox O2 Delivery O2 Flow Rate FiO2 10/05/16 16:03 77 10/05/16 15:13 99.1 17 151/70 96 10/05/16 07:49 Nasal Cannula 2.0 10/04/16 23:35 27 Intake and Output 10/04/16 10/04/16 10/05/16 15:00 23:00 07:00 Intake Total 0 ml 770 ml Output Total 155 ml 785 ml Balance -155 ml -15 ml Exam Constitutional: alert, oriented Psych: nl mood/affect, no complaints Head: atraumatic, normocephalic Neck: supple, No jvd Respiratory: clear to auscultation, No crackles/rales Cardiovascular: regular rate and rhythm, No edema Gastrointestinal: distended (mild), soft, No non-tender Neurological: nl mental status, nl speech Results Result Diagram: 10/05/16 0515 10/05/16 0515 Results 24 hrs Laboratory Tests Test 10/04/16 22:05 10/04/16 23:21 10/05/16 05:14 10/05/16 05:15 Prothrombin Time 14.2 14.1 Prothrombin Time Ratio 1.1 1.1 INR International Normalized Ratio 1.10 1.09 Activated Partial Thromboplast Time 34.5 35.6 H Free Thyroxine 1.89 Bedside Glucose 107 105 White Blood Count 5.9 Red Blood Count 3.94 L Hemoglobin 11.1 L Hematocrit 34.8 L Mean Corpuscular Volume 88.3 Mean Corpuscular Hemoglobin 28.2 L Mean Corpuscular Hemoglobin Concent 31.9 L Red Cell Distribution Width 12.9 Platelet Count 316 Mean Platelet Volume 11.2 H Neutrophils % 66.9 Lymphocytes % 14.7 L Monocytes % 17.3 H Eosinophils % 0.5 Basophils % 0.3 Nucleated Red Blood Cells % 0.0 Neutrophils # 4.0 Lymphocytes # 0.9 Monocytes # 1.0 H Eosinophils # 0.0 Basophils # 0.0 Nucleated Red Blood Cells # 0.0 Sodium Level 140 Potassium Level 3.4 L Chloride Level 96 L Carbon Dioxide Level 29 Anion Gap 18 H Blood Urea Nitrogen 46 H Creatinine 2.35 H Glucose Level 114 Hemoglobin A1c 5.6 Lactic Acid Level 0.8 Calcium Level 9.1 Phosphorus Level 5.0 H Magnesium Level 2.0 Total Bilirubin 0.5 Direct Bilirubin 0.00 Indirect Bilirubin 0.5 Aspartate Amino Transf (AST/SGOT) 26 Alanine Aminotransferase (ALT/SGPT) 30 Alkaline Phosphatase 54 Total Protein 6.3 # Albumin 3.8 Globulin 2.50 Albumin/Globulin Ratio 1.52 Triglycerides Level 127 Cholesterol Level 129 LDL Cholesterol, Calculated 70 HDL Cholesterol 34 Cholesterol/HDL Ratio 3.7 Lipase 16 L Thyroid Stimulating Hormone (TSH) 1.600 Test 10/05/16 08:16 10/05/16 12:55 Bedside Glucose 110 90 Medications Medications Current Medications Ondansetron HCl (Zofran Inj) 4 mg Q6H PRN IV NAUSEA AND/OR VOMITING; Start 10/04 at 19:00 Acetaminophen (Tylenol Tab) 650 mg Q6H PRN PO PAIN LEVEL 1-3 OR FEVER; Start at 19:00 Acetaminophen/ Hydrocodone Bitart ([place] (5/325)) 1 tab Q6H PRN PO MODERATE PAIN LEVEL 4-6; Start 10/04/16 at 19:00 Morphine Sulfate (morphine) 2 mg Q4H PRN IV SEVERE PAIN LEVEL 7-10; Start at 19:00 Docusate Sodium (Colace) 100 mg Q12H PRN PO CONSTIPATION; Start 10/04/16 at 19: 00 Magnesium Hydroxide (Milk Of Mag) 30 ml DAILY PRN PO CONSTIPATION; Start at 19:00 Sodium Biphosphate/ Sodium Phosphate (Fleet Enema) 133 ml DAILY PRN [place] CONSTIPATION; Start 10/04/16 at 19:00 Pantoprazole 40 mg 40 mg DAILY@06 IV Last administered on 10/05/16 05:15; Admin Dose 40 MG; Start 10/05/16 at 06:00 Sodium Chloride (1/2 NS) 1,000 ml @ 30 mls/hr Q24H IV Last administered on 10/05 10:04; Admin Dose 30 MLS/HR; Start 10/04/16 at 18:59 Hydralazine HCl (Apresoline) 10 mg Q6H PRN IV ELEVATED BLOOD PRESSURE; Start at 19:00 Nitroglycerin (Nitroglycerin (Sl Tab) 0.4 Mg) 1 tab Q5M PRN SL ANGINA; Start at 19:00 Eye Lubricant (Artificial Tears Oph) 1 drop TID BOTH EYES Last administered on 10/05/16 12:55; Admin Dose 1 DROP; Start 10/04/16 at 21:00 Insulin Aspart (Novolog Insulin Pen) NOVOLOG *MILD* ALGORI... Q4 SC ; Start 10/04 at 21:00 Amiodarone HCl (Cordarone) 100 mg DAILY PO Last administered on 10/05/16 09:30 ; Admin Dose 100 MG; Start 10/05/16 at 09:00 Aspirin (Aspirin) 81 mg DAILY PO Last administered on 10/05/16 09:29; Admin Dose 81 MG; Start 10/05/16 at 09:00 Atorvastatin Calcium (Lipitor) 80 mg QHS PO ; Start 10/04/16 at 21:00 Carvedilol (Coreg) 12.5 mg BID PO Last administered on 10/05/16 09:29; Admin Dose 12.5 MG; Start 10/04/16 at 21:00 EZETIMIBE (Zetia) 10 mg DAILY PO Last administered on 10/05/16 09:29; Admin Dose 10 MG; Start 10/05/16 at 09:00 Hydralazine HCl (Apresoline) 100 mg TID PO Last administered on 10/05/16 12:56 ; Admin Dose 100 MG; Start 10/04/16 at 21:00 Isosorbide Dinitrate (Isordil) 20 mg TID PO Last administered on 10/05/16 12:56 ; Admin Dose 20 MG; Start 10/04/16 at 21:00 Zolpidem Tartrate (Ambien) 10 mg QHS PRN PO INSOMNIA; Start 10/04/16 at 19:00 Miscellaneous Information 1 ea NOTE XX ; Start 10/04/16 at 19:30 Glucose (Glutose) 15 gm Q15M PRN PO DECREASED GLUCOSE; Start 10/04/16 at 19:30 Glucose (Glutose) 22.5 gm Q15M PRN PO DECREASED GLUCOSE; Start 10/04/16 at 19:30 Dextrose (D50w Syringe) 25 ml Q15M PRN IV DECREASED GLUCOSE; Start 10/04/16 at 19:30 Dextrose (D50w Syringe) 50 ml Q15M PRN IV DECREASED GLUCOSE; Start 10/04/16 at 19:30 Glucagon (Glucagen) 1 mg Q15M PRN IM DECREASED GLUCOSE; Start 10/04/16 at 19:30 Glucose 15 gm 15 gm Q15M PRN BUCCAL DECREASED GLUCOSE; Start 10/04/16 at 19:30 Piperacillin Sod/ Tazobactam Sod (Zosyn 2.25gm/ 50ml (Pmx)) 50 ml @ 100 mls/hr Q8 IVPB Last administered on 10/05/16t 15:04; Admin Dose 100 MLS/HR; Start at 23:00 Sertraline HCl (Zoloft) 50 mg DAILY@17 PO ; Start 10/05/16 at 17:00 Clonazepam (Klonopin) 0.5 mg Q8H PRN PO ANXIETY; Start 10/05/16 at 10:30 EMILY TREVIÑO Oct 05, 2016 17:01
[2016-10-05] MEDS: SERTRALINE 50 MG TAB PO SCH (17:32)
[2016-10-05] MEDS: FUROSEMIDE 20 MG TAB PO SCH (17:37)
--- NOTE | 2016-10-05 17:43 | PN ---
Date/Time of Note Date/Time of Note DATE: 10/05/16 TIME: 17:40 Assessment/Plan VTE Prophylaxis VTE Prophylaxis Intervention: SCD's Assessment/Plan Chief Complaint/Hosp Course 1. Small bowel obstruction at the level of the distal ileum secondary to incarcerated left inguinal hernia status post reduction of left inguinal hernia incarceration Continue NG tube to suction 2. Hypertension currently with good control 3. History of congestive heart failure and recurrent flash pulmonary edema: Stable Cardiology consult appreciated Gentle IV fluids 4. 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 Chronic carotid artery stenosis status post CEA 6. History of bilateral renal stenosis status post stent 7. Chronic kidney disease stage IV: Stable without acute abnormality 8. Chronic lung mass for which patient has refused workup and intervention repeatedly in the past 9. Chronic cardiomyopathy likely ischemic status post AICD Prophylaxis : SCDS / Pepcid Problems: Subjective 24 Hr Interval Summary Constitutional: no complaints Exam/Review of Systems Vital Signs Vitals Vital Signs Date Time Temp Pulse Resp B/P Pulse Ox O2 Delivery O2 Flow Rate FiO2 10/05/16 16:03 77 10/05/16 15:13 99.1 17 151/70 96 10/05/16 07:49 Nasal Cannula 2.0 10/04/16 23:35 27 Intake and Output 10/04/16 10/04/16 10/05/16 15:00 23:00 07:00 Intake Total 0 ml 770 ml Output Total 155 ml 785 ml Balance -155 ml -15 ml Exam Constitutional: alert Respiratory: clear to auscultation Cardiovascular: regular rate and rhythm Gastrointestinal: soft, No distended Musculoskeletal: nl extremities to inspection Results Result Diagram: 10/05/16 0515 10/05/16 0515 Results 24 hrs Laboratory Tests Test 10/04/16 22:05 10/04/16 23:21 10/05/16 05:14 10/05/16 05:15 Prothrombin Time 14.2 14.1 Prothrombin Time Ratio 1.1 1.1 INR International Normalized Ratio 1.10 1.09 Activated Partial Thromboplast Time 34.5 35.6 H Free Thyroxine 1.89 Bedside Glucose 107 105 White Blood Count 5.9 Red Blood Count 3.94 L Hemoglobin 11.1 L Hematocrit 34.8 L Mean Corpuscular Volume 88.3 Mean Corpuscular Hemoglobin 28.2 L Mean Corpuscular Hemoglobin Concent 31.9 L Red Cell Distribution Width 12.9 Platelet Count 316 Mean Platelet Volume 11.2 H Neutrophils % 66.9 Lymphocytes % 14.7 L Monocytes % 17.3 H Eosinophils % 0.5 Basophils % 0.3 Nucleated Red Blood Cells % 0.0 Neutrophils # 4.0 Lymphocytes # 0.9 Monocytes # 1.0 H Eosinophils # 0.0 Basophils # 0.0 Nucleated Red Blood Cells # 0.0 Sodium Level 140 Potassium Level 3.4 L Chloride Level 96 L Carbon Dioxide Level 29 Anion Gap 18 H Blood Urea Nitrogen 46 H Creatinine 2.35 H Glucose Level 114 Hemoglobin A1c 5.6 Lactic Acid Level 0.8 Calcium Level 9.1 Phosphorus Level 5.0 H Magnesium Level 2.0 Total Bilirubin 0.5 Direct Bilirubin 0.00 Indirect Bilirubin 0.5 Aspartate Amino Transf (AST/SGOT) 26 Alanine Aminotransferase (ALT/SGPT) 30 Alkaline Phosphatase 54 Total Protein 6.3 # Albumin 3.8 Globulin 2.50 Albumin/Globulin Ratio 1.52 Triglycerides Level 127 Cholesterol Level 129 LDL Cholesterol, Calculated 70 HDL Cholesterol 34 Cholesterol/HDL Ratio 3.7 Lipase 16 L Thyroid Stimulating Hormone (TSH) 1.600 Test 10/05/16 08:16 10/05/16 12:55 10/05/16 17:07 Bedside Glucose 110 90 92 Medications Medications Current Medications Ondansetron HCl (Zofran Inj) 4 mg Q6H PRN IV NAUSEA AND/OR VOMITING; Start 10/04 at 19:00 Acetaminophen (Tylenol Tab) 650 mg Q6H PRN PO PAIN LEVEL 1-3 OR FEVER; Start at 19:00 Acetaminophen/ Hydrocodone Bitart ([place] (5/325)) 1 tab Q6H PRN PO MODERATE PAIN LEVEL 4-6; Start 10/04/16 at 19:00 Morphine Sulfate (morphine) 2 mg Q4H PRN IV SEVERE PAIN LEVEL 7-10; Start at 19:00 Docusate Sodium (Colace) 100 mg Q12H PRN PO CONSTIPATION; Start 10/04/16 at 19: 00 Magnesium Hydroxide (Milk Of Mag) 30 ml DAILY PRN PO CONSTIPATION; Start at 19:00 Sodium Biphosphate/ Sodium Phosphate (Fleet Enema) 133 ml DAILY PRN [place] CONSTIPATION; Start 10/04/16 at 19:00 Pantoprazole (Protonix Iv) 40 mg DAILY@06 IV Last administered on 10/05/16 05: 15; Admin Dose 40 MG; Start 10/05/16 at 06:00 Hydralazine HCl (Apresoline) 10 mg Q6H PRN IV ELEVATED BLOOD PRESSURE; Start at 19:00 Nitroglycerin (Nitroglycerin (Sl Tab) 0.4 Mg) 1 tab Q5M PRN SL ANGINA; Start at 19:00 Eye Lubricant (Artificial Tears Oph) 1 drop TID BOTH EYES Last administered on 10/05/16 12:55; Admin Dose 1 DROP; Start 10/04/16 at 21:00 Insulin Aspart (Novolog Insulin Pen) NOVOLOG *MILD* ALGORI... Q4 SC ; Start 10/04 at 21:00 Amiodarone HCl (Cordarone) 100 mg DAILY PO Last administered on 10/05/16 09:30 ; Admin Dose 100 MG; Start 10/05/16 at 09:00 Aspirin (Aspirin) 81 mg DAILY PO Last administered on 10/05/16 09:29; Admin Dose 81 MG; Start 10/05/16 at 09:00 Atorvastatin Calcium (Lipitor) 80 mg QHS PO ; Start 10/04/16 at 21:00 Carvedilol (Coreg) 12.5 mg BID PO Last administered on 10/05/16 09:29; Admin Dose 12.5 MG; Start 10/04/16 at 21:00 EZETIMIBE (Zetia) 10 mg DAILY PO Last administered on 10/05/16 09:29; Admin Dose 10 MG; Start 10/05/16 at 09:00 Hydralazine HCl (Apresoline) 100 mg TID PO Last administered on 10/05/16 12:56 ; Admin Dose 100 MG; Start 10/04/16 at 21:00 Isosorbide Dinitrate (Isordil) 20 mg TID PO Last administered on 10/05/16 12:56 ; Admin Dose 20 MG; Start 10/04/16 at 21:00 Zolpidem Tartrate (Ambien) 10 mg QHS PRN PO INSOMNIA; Start 10/04/16 at 19:00 Miscellaneous Information 1 ea NOTE XX ; Start 10/04/16 at 19:30 Glucose (Glutose) 15 gm Q15M PRN PO DECREASED GLUCOSE; Start 10/04/16 at 19:30 Glucose (Glutose) 22.5 gm Q15M PRN PO DECREASED GLUCOSE; Start 10/04/16 at 19:30 Dextrose (D50w Syringe) 25 ml Q15M PRN IV DECREASED GLUCOSE; Start 10/04/16 at 19:30 Dextrose (D50w Syringe) 50 ml Q15M PRN IV DECREASED GLUCOSE; Start 10/04/16 at 19:30 Glucagon (Glucagen) 1 mg Q15M PRN IM DECREASED GLUCOSE; Start 10/04/16 at 19:30 Glucose 15 gm 15 gm Q15M PRN BUCCAL DECREASED GLUCOSE; Start 10/04/16 at 19:30 Piperacillin Sod/ Tazobactam Sod (Zosyn 2.25gm/ 50ml (Pmx)) 50 ml @ 100 mls/hr Q8 IVPB Last administered on 10/05/16 15:04; Admin Dose 100 MLS/HR; Start at 23:00 Sertraline HCl (Zoloft) 50 mg DAILY@17 PO Last administered on 10/05/16 17:32; Admin Dose 50 MG; Start 10/05/16 at 17:00 Clonazepam (Klonopin) 0.5 mg Q8H PRN PO ANXIETY; Start 10/05/16 at 10:30 Furosemide (Lasix) 20 mg DAILY PO Last administered on 10/05/16 17:37; Admin Dose 20 MG; Start 10/05/16 at 18:00 GLENN OWENS Oct 05, 2016 17:43
--- NOTE | 2016-10-05 18:51 | PN ---
Date/Time of Note Date/Time of Note DATE: 10/05/16 TIME: 18:46 Assessment/Plan Assessment/Plan Assessment/Plan [facility] Progress Note Date of Service: 10/05/16 Today's Impression & Plan: Overall much improved since last night without any obvious evidence of major sepsis. KUB indicates ongoing partial small bowel obstruction, but I believe that this is likely more due to ileus at this point. Patient still remains extremely high risk for operative intervention, but if we can make his clinical picture improved, he would have less risk of complications and could potentially undergo a semi-elective left inguinal hernia repair in the next few days. This will likely take a bit of time and multidisciplinary care. Appreciate all the consultants excellent inputs. With above assessment, I've recommended the following for today: 1. Continue current cares 2. Okay to discharge from ICU to telemetry 3. Please transition patient to IV heparin for anticoagulation with plans of holding the heparin on Sunday night for possible semi-elective left inguinal hernia repair on Sunday 4. Keep n.p.o. for now; once the patient starts passing flatus, to take the NG out and start him on a clear liquid diet 5. Check labs 6. Possible need for echocardiography for preoperative purposes Thank you again for your great care of this very pleasant patient and wonderful family. If there are any questions, please feel free to call me at [phone]. Disclaimer: Inadvertent spelling or grammatical errors are likely due to EHR/ dictation software use and do not reflect on the overall quality of patient care. Updated Clinical Summary: A very-pleasant 65-year-old gentleman with multiple comorbid issues including severe cardiopulmonary disease, presenting with a very difficult issue of small bowel obstruction in the setting of incarcerated left inguinal hernia containing small bowel. Comorbidities: 1. Small bowel obstruction with incarcerated left inguinal hernia 2. Coronary artery disease, status post CABG October 2015 with subsequent graft closure requiring PTCA with stenting 3. Ischemic cardiomyopathy: Ejection fraction approximately 20-25% 4. Status post ICD for secondary prevention 5. Severe atherosclerotic vascular disease 6. Peripheral vascular disease 7. Chronic kidney disease with renal insufficiency (creatinine between 2-1/2-3- 1/2) 8. Right-sided renal artery stenosis, status post bilateral renal artery stents and angioplasty in July 2016 9. Hypertension 10. Significant pulmonary disease with multiple admissions for lung problems including acute respiratory failure secondary to recurrent flash pulmonary edema and hypertensive emergency 11. Significant cardiac disease as above with multiple admissions for cardiac problems 12. Former smoker 13. 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 First-degree AV block, LAD, and left bundle branch block 15. Lesion of ramus coronary artery 16. History of shock 17. Hyperkalemia 18. Carotid stenosis, status post carotid endarterectomy 19. COPD 20. Extensive atherosclerotic vascular disease including ectasia of the distal thoracic aorta measuring up to 3.7 cm in multiple segments of intraluminal curvilinear calcifications suggesting multi focal chronic dissection (CT abdomen and pelvis [facility] 10/04/2016). 21. Cardiomegaly (CT abdomen and pelvis [facility] 10/04/2016). 22. Small nonobstructing bilateral renal calculi (CT abdomen and pelvis [facility] 10/04/2016). 23. Hyperuricemia 24. S/p an otherwise uncomplicated exam under anesthesia at [facility] 10/04/16 with successful reduction of left inguinal incarcerated region without any obvious evident complication. Subjective: No major events or complaints; no abd pain and under control with medications; no n/v/d; no sob or cp; - flatus; - BM; - activity Objective: Vitals: See below Exam: GENERAL: On exam, the patient was laying in bed and appeared to be comfortable and in no acute distress. NG bilious with relatively small amounts of output. ABDOMEN: Soft, nontender and nondistended. There are no peritoneal signs or guarding. SKIN: Skin appears to be pink and feels warm to touch. NEUROLOGIC: Patient is awake, alert, and follows commands appropriately. Exam/Review of Systems Vital Signs Vitals Vital Signs Date Time Temp Pulse Resp B/P Pulse Ox O2 Delivery O2 Flow Rate FiO2 10/05/16 18:38 2.0 10/05/16 16:03 77 10/05/16 15:13 99.1 17 151/70 96 10/05/16 07:49 Nasal Cannula 10/04/16 23:35 27 Intake and Output 10/04/16 10/04/16 10/05/16 15:00 23:00 07:00 Intake Total 0 ml 770 ml Output Total 155 ml 785 ml Balance -155 ml -15 ml Results Result Diagram: 10/05/16 0515 10/05/16 0515 BLESSING HINSON M.D. Oct 05, 2016 18:51
[2016-10-05] MEDS: ATORVASTATIN 80 MG TAB PO SCH (21:15)
[2016-10-05] MEDS: clonAZEPAM 0.5 MG TAB PO PRN (23:24)
[2016-10-06] VITALS (12 sets, daily range): BP systolic 138–161; BP diastolic 63–69; PULSE 69–74; RESP 16–20
[2016-10-06] MEDS: INSULIN ASPART [NOVOLOG] 3 ML PEN SC SCH ×4 (01:00→17:57)
[2016-10-06] MEDS: PIPER-TAZO 2.25 GM (PMX) 50 ML IVPB SCH ×3 (06:25→22:34)
[2016-10-06] MEDS: PANTOPRAZOLE 40 MG INJ IV SCH (06:25)
--- NOTE | 2016-10-06 07:44 | CONS ---
Date/Time of Note Date/Time of Note DATE: 10/06/16 TIME: 07:41 Assessment/Plan Assessment/Plan Chief Complaint/Hosp Course SBO with incarcerated inguinal hernia: Improved after hernia reduction under anesthesia. Plan for definitive repair tomorrow. This would be an intermediate risk surgery and he is at intermediate-high risk for surgery due to his prior cardiac issues though all is stable at this time. h/o CAD s/p CABG/PCI: No e/o ischemia ICM (EF 20%): compensated by my exam Recurrent pulm edema: from HTN and renal artery stenosis as well as anxiety. No recurrence >1 month VT s/p ICD PVD s/p bilateral renal artery stenting and CEA CKD (baseline Cr mid 2s) HTN -ok to proceed with surgery as planned as pt is medically optimized at this time -no need for heparin drip pre-op from a cardiac perspective. ASA is adequate for his stent -advance diet as tolerated -lasix 20mg PO daily -ok to continue to hold plavix until after surgery as >6 months post PCI ( restart when ok post-op) -continue ASA ivana-op -continue coreg 12.5mg BID -hydralazine 100mg TID -isordil 20mg TID Problems: Consultation Date/Type/Reason Admit Date/Time Oct 05, 2016 at 12:04 Initial Consult Date 10/05/16 Type of Consultation: Cardiology Referring Provider: SANJUANITA SPAULDING 24 HR Interval Summary Free Text/Dictation No o/n events. Feels well. NG removed. Passing gas. Hungry Exam/Review of Systems Vital Signs Vitals Vital Signs Date Time Temp Pulse Resp B/P Pulse Ox O2 Delivery O2 Flow Rate FiO2 10/06/16 07:12 97.8 71 17 161/63 96 10/05/16 23:55 3.0 10/05/16 20:25 Nasal Cannula 10/04/16 23:35 27 Intake and Output 10/05/16 10/05/16 10/06/16 14:59 22:59 06:59 Intake Total 430 ml 50 ml 50 ml Output Total 705 ml 100 ml 750 ml Balance -275 ml -50 ml -700 ml Exam Constitutional: alert, oriented Psych: nl mood/affect, no complaints Head: atraumatic, normocephalic Neck: No jvd Respiratory: clear to auscultation, No crackles/rales Cardiovascular: regular rate and rhythm, No edema Gastrointestinal: non-tender, soft Neurological: nl mental status, nl speech Results Result Diagram: 10/05/16 0515 10/05/16 0515 Results 24 hrs Laboratory Tests Test 10/05/16 08:16 10/05/16 12:55 10/05/16 17:07 10/05/16 21:10 Bedside Glucose 110 90 92 93 Test 10/06/16 06:23 Bedside Glucose 80 Medications Medications Current Medications Ondansetron HCl (Zofran Inj) 4 mg Q6H PRN IV NAUSEA AND/OR VOMITING; Start 10/04 at 19:00 Acetaminophen (Tylenol Tab) 650 mg Q6H PRN PO PAIN LEVEL 1-3 OR FEVER; Start at 19:00 Acetaminophen/ Hydrocodone Bitart ([place] (5/325)) 1 tab Q6H PRN PO MODERATE PAIN LEVEL 4-6; Start 10/04/16 at 19:00 Morphine Sulfate (morphine) 2 mg Q4H PRN IV SEVERE PAIN LEVEL 7-10; Start at 19:00 Docusate Sodium (Colace) 100 mg Q12H PRN PO CONSTIPATION; Start 10/04/16 at 19: 00 Magnesium Hydroxide (Milk Of Mag) 30 ml DAILY PRN PO CONSTIPATION; Start at 19:00 Sodium Biphosphate/ Sodium Phosphate (Fleet Enema) 133 ml DAILY PRN [place] CONSTIPATION; Start 10/04/16 at 19:00 Pantoprazole (Protonix Iv) 40 mg DAILY@06 IV Last administered on 10/06/16 06: 25; Admin Dose 40 MG; Start 10/05/16 at 06:00 Hydralazine HCl (Apresoline) 10 mg Q6H PRN IV ELEVATED BLOOD PRESSURE; Start at 19:00 Nitroglycerin (Nitroglycerin (Sl Tab) 0.4 Mg) 1 tab Q5M PRN SL ANGINA; Start at 19:00 Eye Lubricant (Artificial Tears Oph) 1 drop TID BOTH EYES Last administered on 10/05/16 21:13; Admin Dose 1 DROP; Start 10/04/16 at 21:00 Amiodarone HCl (Cordarone) 100 mg DAILY PO Last administered on 10/05/16 09:30 ; Admin Dose 100 MG; Start 10/05/16 at 09:00 Aspirin (Aspirin) 81 mg DAILY PO Last administered on 10/05/16 09:29; Admin Dose 81 MG; Start 10/05/16 at 09:00 Atorvastatin Calcium (Lipitor) 80 mg QHS PO Last administered on 10/05/16 21:15 ; Admin Dose 80 MG; Start 10/04/16 at 21:00 Carvedilol (Coreg) 12.5 mg BID PO Last administered on 10/05/16 21:14; Admin Dose 12.5 MG; Start 10/04/16 at 21:00 EZETIMIBE (Zetia) 10 mg DAILY PO Last administered on 10/05/16 09:29; Admin Dose 10 MG; Start 10/05/16 at 09:00 Hydralazine HCl (Apresoline) 100 mg TID PO Last administered on 10/05/16 21:14 ; Admin Dose 100 MG; Start 10/04/16 at 21:00 Isosorbide Dinitrate (Isordil) 20 mg TID PO Last administered on 10/05/16 21:15 ; Admin Dose 20 MG; Start 10/04/16 at 21:00 Zolpidem Tartrate (Ambien) 10 mg QHS PRN PO INSOMNIA; Start 10/04/16 at 19:00 Miscellaneous Information 1 ea NOTE XX ; Start 10/04/16 at 19:30 Glucose (Glutose) 15 gm Q15M PRN PO DECREASED GLUCOSE; Start 10/04/16 at 19:30 Glucose (Glutose) 22.5 gm Q15M PRN PO DECREASED GLUCOSE; Start 10/04/16 at 19:30 Dextrose (D50w Syringe) 25 ml Q15M PRN IV DECREASED GLUCOSE; Start 10/04/16 at 19:30 Dextrose (D50w Syringe) 50 ml Q15M PRN IV DECREASED GLUCOSE; Start 10/04/16 at 19:30 Glucagon (Glucagen) 1 mg Q15M PRN IM DECREASED GLUCOSE; Start 10/04/16 at 19:30 Glucose 15 gm 15 gm Q15M PRN BUCCAL DECREASED GLUCOSE; Start 10/04/16 at 19:30 Piperacillin Sod/ Tazobactam Sod (Zosyn 2.25gm/ 50ml (Pmx)) 50 ml @ 100 mls/hr Q8 IVPB Last administered on 10/06/16 06:25; Admin Dose 100 MLS/HR; Start at 23:00 Sertraline HCl (Zoloft) 50 mg DAILY@17 PO Last administered on 10/05/16 17:32; Admin Dose 50 MG; Start 10/05/16 at 17:00 Clonazepam (Klonopin) 0.5 mg Q8H PRN PO ANXIETY Last administered on 10/05/16 23:24; Admin Dose 0.5 MG; Start 10/05/16 at 10:30 Furosemide (Lasix) 20 mg DAILY PO Last administered on 10/05/16 17:37; Admin Dose 20 MG; Start 10/05/16 at 18:00 Insulin Aspart (Novolog Insulin Pen) NOVOLOG *MILD* ALGORI... Q6 SC ; Start 10/06 at 06:00 EMILY TREVIÑO Oct 06, 2016 07:43
[2016-10-06] MEDS: ASPIRIN 81 MG TAB PO SCH (08:09)
[2016-10-06] MEDS: EZETIMIBE 10 MG TAB PO SCH (08:09)
[2016-10-06] MEDS: ISOSORBIDE DINITRATE 20 MG TAB PO SCH ×3 (08:09→20:52)
[2016-10-06] MEDS: FUROSEMIDE 20 MG TAB PO SCH (08:13)
[2016-10-06] MEDS: AMIODARONE 200 MG TAB PO SCH (08:13)
[2016-10-06] MEDS: ARTIFICIAL TEARS 15 ML OPH BOTH EYES SCH ×3 (08:14→20:49)
[2016-10-06 09:31] LABS: ADD SCAN DIFF NO
[2016-10-06 09:35] LABS: BASOPHILS % 0.4 % (0.0-2.0); EOSINOPHILS # 0.1 10^3/ul (0.0-0.5); EOSINOPHILS % 0.6 % (0.0-7.0); HEMATOCRIT 30.9 % (42.0-52.0); LYMPHOCYTES # 1.1 10^3/ul (0.8-2.9); LYMPHOCYTES % 13.1 % (15.0-51.0); MEAN CORPUSCULAR HEMOGLOBIN 28.5 pg (29.0-33.0); MEAN CORPUSCULAR HGB CONC 32.4 g/dl (32.0-37.0); MEAN PLATELET VOLUME 11.2 fl (7.4-10.4); MONOCYTE # 1.3 10^3/ul (0.3-0.9); MONOCYTES % 16.3 % (0.0-11.0); NEUTROPHIL # 5.5 10^3/ul (1.6-7.5); NEUTROPHILS % 68.6 % (39.0-77.0); PLATELET COUNT 332 10^3/UL (140-415); RED BLOOD COUNT 3.51 10^6/ul (4.70-6.10); RED CELL DISTRIBUTION WIDTH 13.1 % (11.5-14.5)
[2016-10-06 09:55] LABS: CALCIUM 8.5 mg/dl (8.4-10.2); CREATININE 2.27 mg/dl (0.61-1.24); POTASSIUM 3.1 mmol/L (3.5-5.1)
[2016-10-06] MEDS: POTASSIUM CHLORIDE (SR) 20 MEQ TAB PO SCH ×2 (13:52→17:57)
--- NOTE | 2016-10-06 14:10 | PN ---
Date/Time of Note Date/Time of Note DATE: 10/06/16 TIME: 14:03 Assessment/Plan Lines/Catheters [place] in Place (from [facility]): Yes Assessment/Plan Assessment/Plan [facility] Progress Note Date of Service: 10/06/16 Today's Impression & Plan: Overall remains stable and improving. + evidence for slow resolution of SBO. Given significant comorbidities, would be of great benefit for the patient to have more resolution of his SBO prior to the operation. This operation needs to be done during daytime when all of the hospital's resources are available, including cardiac anesthesia, cardiology, bird trapper and others. Earliest available time appears to be on Tue am next week. Discussed with Dr. Zavala , who is the patient's core machine operator and he agrees. I leave the question of need for anticoagulation to him. Discussed with patient and his family and they also agree with the plan. Please note that this case is different than our usual case of surgical groin hernia and qualifies for more extensive hospital course. With above assessment, I've recommended the following for today: 1. Continue current cares 2. Clear liquid diet today; if ok by tomorrow, may start advancing to regular then 3. Anticoagulation per cardiology; can continue aspirin throughout; if on heparin, please hold the night before surgery (currently Sunday night) 4. Labs in am 5. Keep inhouse Thank you again for your great care of this very pleasant patient and wonderful family. If there are any questions, please feel free to call me at [phone]. Disclaimer: Inadvertent spelling or grammatical errors are likely due to EHR/ dictation software use and do not reflect on the overall quality of patient care. Updated Clinical Summary: A very-pleasant 65-year-old gentleman with multiple comorbid issues including severe cardiopulmonary disease, presenting with a very difficult issue of small bowel obstruction in the setting of incarcerated left inguinal hernia containing small bowel. Comorbidities: 1. Small bowel obstruction with incarcerated left inguinal hernia 2. Coronary artery disease, status post CABG October 2015 with subsequent graft closure requiring PTCA with stenting 3. Ischemic cardiomyopathy: Ejection fraction approximately 20-25% 4. Status post ICD for secondary prevention 5. Severe atherosclerotic vascular disease 6. Peripheral vascular disease 7. Chronic kidney disease with renal insufficiency (creatinine between 2-1/2-3- 1/2) 8. Right-sided renal artery stenosis, status post bilateral renal artery stents and angioplasty in July 2016 9. Hypertension 10. Significant pulmonary disease with multiple admissions for lung problems including acute respiratory failure secondary to recurrent flash pulmonary edema and hypertensive emergency 11. Significant cardiac disease as above with multiple admissions for cardiac problems 12. Former smoker 13. 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 First-degree AV block, LAD, and left bundle branch block 15. Lesion of ramus coronary artery 16. History of shock 17. Hyperkalemia 18. Carotid stenosis, status post carotid endarterectomy 19. COPD 20. Extensive atherosclerotic vascular disease including ectasia of the distal thoracic aorta measuring up to 3.7 cm in multiple segments of intraluminal curvilinear calcifications suggesting multi focal chronic dissection (CT abdomen and pelvis [facility] 10/04/2016). 21. Cardiomegaly (CT abdomen and pelvis [facility] 10/04/2016). 22. Small nonobstructing bilateral renal calculi (CT abdomen and pelvis [facility] 10/04/2016). 23. Hyperuricemia 24. S/p an otherwise uncomplicated exam under anesthesia at [facility] 10/04/16 with successful reduction of left inguinal incarcerated region without any obvious evident complication. Subjective: No major events or complaints; feels much improved; no abd pain and under control with medications; no n/v/d; no sob or cp; ++ flatus; + BM (loose stools) ; + activity Objective: Vitals: See below Exam: GENERAL: On exam, the patient was laying in bed and appeared to be comfortable and in no acute distress. ABDOMEN: Soft, nontender and nondistended. There are no peritoneal signs or guarding. SKIN: Skin appears to be pink and feels warm to touch. NEUROLOGIC: Patient is awake, alert, and follows commands appropriately. Exam/Review of Systems Vital Signs Vitals Vital Signs Date Time Temp Pulse Resp B/P Pulse Ox O2 Delivery O2 Flow Rate FiO2 10/06/16 12:03 70 10/06/16 11:19 98.2 20 138/63 94 10/06/16 08:00 Nasal Cannula 2.0 10/04/16 23:35 27 Intake and Output 10/05/16 10/05/16 10/06/16 15:00 23:00 07:00 Intake Total 360 ml 50 ml 50 ml Output Total 655 ml 100 ml 750 ml Balance -295 ml -50 ml -700 ml Results Result Diagram: 10/06/16 0855 10/06/16 0855 BLESSING HINSON M.D. Oct 06, 2016 14:10
--- NOTE | 2016-10-06 14:31 | PN ---
Date/Time of Note Date/Time of Note DATE: 10/06/16 TIME: 14:27 Assessment/Plan VTE Prophylaxis VTE Prophylaxis Intervention: SCD's Assessment/Plan Chief Complaint/Hosp Course 1. Small bowel obstruction at the level of the distal ileum secondary to incarcerated left inguinal hernia status post reduction of left inguinal hernia incarceration-SBO slowly resolving patient may have a component of an ileus NG tube has been DC'd and has been started on a diet Plan is for left inguinal hernia repair this coming Sunday, this is a more complex case considering patient's comorbidities 2. Hypertension currently with good control 3. History of congestive heart failure and recurrent flash pulmonary edema: Stable Cardiology consult appreciated Gentle IV fluids 4. 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 Chronic carotid artery stenosis status post CEA 6. History of bilateral renal stenosis status post stent 7. Chronic kidney disease stage IV: Stable without acute abnormality 8. Chronic lung mass for which patient has refused workup and intervention repeatedly in the past 9. Chronic cardiomyopathy likely ischemic status post AICD Prophylaxis : SCDS / Pepcid Problems: Subjective 24 Hr Interval Summary Constitutional: no complaints Exam/Review of Systems Vital Signs Vitals Vital Signs Date Time Temp Pulse Resp B/P Pulse Ox O2 Delivery O2 Flow Rate FiO2 10/06/16 12:03 70 10/06/16 11:19 98.2 20 138/63 94 10/06/16 08:00 Nasal Cannula 2.0 10/04/16 23:35 27 Intake and Output 10/05/16 10/05/16 10/06/16 15:00 23:00 07:00 Intake Total 360 ml 50 ml 50 ml Output Total 655 ml 100 ml 750 ml Balance -295 ml -50 ml -700 ml Exam Constitutional: alert, oriented Respiratory: clear to auscultation Cardiovascular: regular rate and rhythm Gastrointestinal: soft, No distended Musculoskeletal: nl extremities to inspection Results Result Diagram: 10/06/16 0855 10/06/16 0855 Results 24 hrs Laboratory Tests Test 10/05/16 17:07 10/05/16 21:10 10/06/16 06:23 10/06/16 08:55 Bedside Glucose 92 93 80 White Blood Count 8.0 # Red Blood Count 3.51 L Hemoglobin 10.0 L Hematocrit 30.9 L Mean Corpuscular Volume 88.0 Mean Corpuscular Hemoglobin 28.5 L Mean Corpuscular Hemoglobin Concent 32.4 Red Cell Distribution Width 13.1 Platelet Count 332 Mean Platelet Volume 11.2 H Neutrophils % 68.6 Lymphocytes % 13.1 L Monocytes % 16.3 H Eosinophils % 0.6 Basophils % 0.4 Nucleated Red Blood Cells % 0.0 Neutrophils # 5.5 Lymphocytes # 1.1 Monocytes # 1.3 H Eosinophils # 0.1 Basophils # 0.0 Nucleated Red Blood Cells # 0.0 Sodium Level 138 Potassium Level 3.1 L Chloride Level 100 Carbon Dioxide Level 26 Anion Gap 15 Blood Urea Nitrogen 43 H Creatinine 2.27 H Glucose Level 73 # Calcium Level 8.5 Test 10/06/16 12:14 Bedside Glucose 131 Medications Medications Current Medications Ondansetron HCl (Zofran Inj) 4 mg Q6H PRN IV NAUSEA AND/OR VOMITING; Start 10/04 at 19:00 Acetaminophen (Tylenol Tab) 650 mg Q6H PRN PO PAIN LEVEL 1-3 OR FEVER; Start at 19:00 Acetaminophen/ Hydrocodone Bitart ([place] (5/325)) 1 tab Q6H PRN PO MODERATE PAIN LEVEL 4-6; Start 10/04/16 at 19:00 Morphine Sulfate (morphine) 2 mg Q4H PRN IV SEVERE PAIN LEVEL 7-10; Start at 19:00 Docusate Sodium (Colace) 100 mg Q12H PRN PO CONSTIPATION; Start 10/04/16 at 19: 00 Magnesium Hydroxide (Milk Of Mag) 30 ml DAILY PRN PO CONSTIPATION; Start at 19:00 Sodium Biphosphate/ Sodium Phosphate (Fleet Enema) 133 ml DAILY PRN [place] CONSTIPATION; Start 10/04/16 at 19:00 Pantoprazole (Protonix Iv) 40 mg DAILY@06 IV Last administered on 10/06/16t 06: 25; Admin Dose 40 MG; Start 10/05/16 at 06:00 Hydralazine HCl (Apresoline) 10 mg Q6H PRN IV ELEVATED BLOOD PRESSURE; Start at 19:00 Nitroglycerin (Nitroglycerin (Sl Tab) 0.4 Mg) 1 tab Q5M PRN SL ANGINA; Start at 19:00 Eye Lubricant (Artificial Tears Oph) 1 drop TID BOTH EYES Last administered on 10/06/16 13:53; Admin Dose 1 DROP; Start 10/04/16 at 21:00 Amiodarone HCl (Cordarone) 100 mg DAILY PO Last administered on 10/06/16 08:13 ; Admin Dose 100 MG; Start 10/05/16 at 09:00 Aspirin (Aspirin) 81 mg DAILY PO Last administered on 10/06/16 08:09; Admin Dose 81 MG; Start 10/05/16 at 09:00 Atorvastatin Calcium (Lipitor) 80 mg QHS PO Last administered on 10/05/16 21:15 ; Admin Dose 80 MG; Start 10/04/16 at 21:00 Carvedilol (Coreg) 12.5 mg BID PO Last administered on 10/06/16 08:13; Admin Dose 12.5 MG; Start 10/04/16 at 21:00 EZETIMIBE (Zetia) 10 mg DAILY PO Last administered on 10/06/16 08:09; Admin Dose 10 MG; Start 10/05/16 at 09:00 Hydralazine HCl (Apresoline) 100 mg TID PO Last administered on 10/06/16 13:53 ; Admin Dose 100 MG; Start 10/04/16 at 21:00 Isosorbide Dinitrate (Isordil) 20 mg TID PO Last administered on 10/06/16 13:53 ; Admin Dose 20 MG; Start 10/04/16 at 21:00 Zolpidem Tartrate (Ambien) 10 mg QHS PRN PO INSOMNIA; Start 10/04/16 at 19:00 Miscellaneous Information 1 ea NOTE XX ; Start 10/04/16 at 19:30 Glucose (Glutose) 15 gm Q15M PRN PO DECREASED GLUCOSE; Start 10/04/16 at 19:30 Glucose (Glutose) 22.5 gm Q15M PRN PO DECREASED GLUCOSE; Start 10/04/16 at 19:30 Dextrose (D50w Syringe) 25 ml Q15M PRN IV DECREASED GLUCOSE; Start 10/04/16 at 19:30 Dextrose (D50w Syringe) 50 ml Q15M PRN IV DECREASED GLUCOSE; Start 10/04/16 at 19:30 Glucagon (Glucagen) 1 mg Q15M PRN IM DECREASED GLUCOSE; Start 10/04/16 at 19:30 Glucose 15 gm 15 gm Q15M PRN BUCCAL DECREASED GLUCOSE; Start 10/04/16 at 19:30 Piperacillin Sod/ Tazobactam Sod (Zosyn 2.25gm/ 50ml (Pmx)) 50 ml @ 100 mls/hr Q8 IVPB Last administered on 10/06/16 13:53; Admin Dose 100 MLS/HR; Start at 23:00 Sertraline HCl (Zoloft) 50 mg DAILY@17 PO Last administered on 10/05/16 17:32; Admin Dose 50 MG; Start 10/05/16 at 17:00 Clonazepam (Klonopin) 0.5 mg Q8H PRN PO ANXIETY Last administered on 10/05/16 23:24; Admin Dose 0.5 MG; Start 10/05/16 at 10:30 Furosemide (Lasix) 20 mg DAILY PO Last administered on 10/06/16 08:13; Admin Dose 20 MG; Start 10/05/16 at 18:00 Insulin Aspart (Novolog Insulin Pen) NOVOLOG *MILD* ALGORI... Q6 SC ; Start 10/06 at 06:00 Potassium Chloride (Klor-Con 20) 40 meq Q4H PO Last administered on 10/06/16 13 :52; Admin Dose 40 MEQ; Start 10/06/16 at 13:00; Stop 10/06/16 at 17:01 GLENN OWENS Oct 06, 2016 14:30
[2016-10-06] MEDS: SERTRALINE 50 MG TAB PO SCH (17:57)
--- NOTE | 2016-10-06 19:59 | CONS ---
Date/Time of Note Date/Time of Note DATE: 10/06/16 TIME: 19:58 Consult Date/Type/Reason Admit Date/Time Oct 05, 2016 at 12:04 Initial Consult Date 10/05/16 Type of Consultation: Pulmonary Ordering Provider: SANJUANITA SPAULDING Subjective Comfortable this afternoon. Objective Vital Signs Date Time Temp Pulse Resp B/P Pulse Ox O2 Delivery O2 Flow Rate FiO2 10/06/16 19:33 98.3 71 20 147/68 97 10/06/16 08:00 Nasal Cannula 2.0 10/04/16 23:35 27 Intake and Output 10/05/16 10/05/16 10/06/16 15:00 23:00 07:00 Intake Total 360 ml 50 ml 50 ml Output Total 655 ml 100 ml 750 ml Balance -295 ml -50 ml -700 ml Exam GENERAL: Elderly Telugu gentleman awake alert oriented in full complete sentences no respiratory distress VITAL SIGNS: per chart NECK: Supple. No JVD or lymphadenopathy. CARDIAC EXAM: S1, S2. No added sounds or murmurs. CHEST: clear bilaterally, No added sounds, rales or wheezes ABDOMEN: Soft, nontender. No guarding or rebound. EXTREMITIES: No cyanosis, clubbing or edema. NEUROLOGIC: Generalized weakness. No focal deficits. Results/Medications Result Diagram: 10/06/16 0855 10/06/16 0855 Results 24 hrs Laboratory Tests Test 10/05/16 21:10 10/06/16 06:23 10/06/16 08:55 10/06/16 12:14 Bedside Glucose 93 80 131 White Blood Count 8.0 # Red Blood Count 3.51 L Hemoglobin 10.0 L Hematocrit 30.9 L Mean Corpuscular Volume 88.0 Mean Corpuscular Hemoglobin 28.5 L Mean Corpuscular Hemoglobin Concent 32.4 Red Cell Distribution Width 13.1 Platelet Count 332 Mean Platelet Volume 11.2 H Neutrophils % 68.6 Lymphocytes % 13.1 L Monocytes % 16.3 H Eosinophils % 0.6 Basophils % 0.4 Nucleated Red Blood Cells % 0.0 Neutrophils # 5.5 Lymphocytes # 1.1 Monocytes # 1.3 H Eosinophils # 0.1 Basophils # 0.0 Nucleated Red Blood Cells # 0.0 Sodium Level 138 Potassium Level 3.1 L Chloride Level 100 Carbon Dioxide Level 26 Anion Gap 15 Blood Urea Nitrogen 43 H Creatinine 2.27 H Glucose Level 73 # Calcium Level 8.5 Test 10/06/16 17:38 Bedside Glucose 95 Medications Current Medications Ondansetron HCl (Zofran Inj) 4 mg Q6H PRN IV NAUSEA AND/OR VOMITING; Start 10/04 at 19:00 Acetaminophen (Tylenol Tab) 650 mg Q6H PRN PO PAIN LEVEL 1-3 OR FEVER; Start at 19:00 Acetaminophen/ Hydrocodone Bitart ([place] (5/325)) 1 tab Q6H PRN PO MODERATE PAIN LEVEL 4-6; Start 10/04/16 at 19:00 Morphine Sulfate (morphine) 2 mg Q4H PRN IV SEVERE PAIN LEVEL 7-10; Start at 19:00 Docusate Sodium (Colace) 100 mg Q12H PRN PO CONSTIPATION; Start 10/04/16 at 19: 00 Magnesium Hydroxide (Milk Of Mag) 30 ml DAILY PRN PO CONSTIPATION; Start at 19:00 Sodium Biphosphate/ Sodium Phosphate (Fleet Enema) 133 ml DAILY PRN [place] CONSTIPATION; Start 10/04/16 at 19:00 Pantoprazole (Protonix Iv) 40 mg DAILY@06 IV Last administered on 10/06/16 06: 25; Admin Dose 40 MG; Start 10/05/16 at 06:00 Hydralazine HCl (Apresoline) 10 mg Q6H PRN IV ELEVATED BLOOD PRESSURE; Start at 19:00 Nitroglycerin (Nitroglycerin (Sl Tab) 0.4 Mg) 1 tab Q5M PRN SL ANGINA; Start at 19:00 Eye Lubricant (Artificial Tears Oph) 1 drop TID BOTH EYES Last administered on 10/06/16 13:53; Admin Dose 1 DROP; Start 10/04/16 at 21:00 Amiodarone HCl (Cordarone) 100 mg DAILY PO Last administered on 10/06/16 08:13 ; Admin Dose 100 MG; Start 10/05/16 at 09:00 Aspirin (Aspirin) 81 mg DAILY PO Last administered on 10/06/16 08:09; Admin Dose 81 MG; Start 10/05/16 at 09:00 Atorvastatin Calcium (Lipitor) 80 mg QHS PO Last administered on 10/05/16 21:15 ; Admin Dose 80 MG; Start 10/04/16 at 21:00 Carvedilol (Coreg) 12.5 mg BID PO Last administered on 10/06/16 08:13; Admin Dose 12.5 MG; Start 10/04/16 at 21:00 EZETIMIBE (Zetia) 10 mg DAILY PO Last administered on 10/06/16 08:09; Admin Dose 10 MG; Start 10/05/16 at 09:00 Hydralazine HCl (Apresoline) 100 mg TID PO Last administered on 10/06/16 13:53 ; Admin Dose 100 MG; Start 10/04/16 at 21:00 Isosorbide Dinitrate (Isordil) 20 mg TID PO Last administered on 10/06/16 13:53 ; Admin Dose 20 MG; Start 10/04/16 at 21:00 Zolpidem Tartrate (Ambien) 10 mg QHS PRN PO INSOMNIA; Start 10/04/16 at 19:00 Miscellaneous Information 1 ea NOTE XX ; Start 10/04/16 at 19:30 Glucose (Glutose) 15 gm Q15M PRN PO DECREASED GLUCOSE; Start 10/04/16 at 19:30 Glucose (Glutose) 22.5 gm Q15M PRN PO DECREASED GLUCOSE; Start 10/04/16 at 19:30 Dextrose (D50w Syringe) 25 ml Q15M PRN IV DECREASED GLUCOSE; Start 10/04/16 at 19:30 Dextrose (D50w Syringe) 50 ml Q15M PRN IV DECREASED GLUCOSE; Start 10/04/16 at 19:30 Glucagon (Glucagen) 1 mg Q15M PRN IM DECREASED GLUCOSE; Start 10/04/16 at 19:30 Glucose 15 gm 15 gm Q15M PRN BUCCAL DECREASED GLUCOSE; Start 10/04/16 at 19:30 Piperacillin Sod/ Tazobactam Sod (Zosyn 2.25gm/ 50ml (Pmx)) 50 ml @ 100 mls/hr Q8 IVPB Last administered on 10/06/16 13:53; Admin Dose 100 MLS/HR; Start at 23:00 Sertraline HCl (Zoloft) 50 mg DAILY@17 PO Last administered on 10/06/16 17:57; Admin Dose 50 MG; Start 10/05/16 at 17:00 Clonazepam (Klonopin) 0.5 mg Q8H PRN PO ANXIETY Last administered on 10/05/16 23:24; Admin Dose 0.5 MG; Start 10/05/16 at 10:30 Furosemide (Lasix) 20 mg DAILY PO Last administered on 10/06/16 08:13; Admin Dose 20 MG; Start 10/05/16 at 18:00 Insulin Aspart (Novolog Insulin Pen) NOVOLOG *MILD* ALGORI... Q6 SC ; Start 10/06 at 06:00 Assessment/Plan Chief Complaint/Hosp Course Assessment Incarcerated inguinal hernia status post surgical repair. Doing extremely well from surgical standpoint. Stable COPD Stable coronary artery disease with ischemic cardiomyopathy Chronic kidney disease with baseline creatinine around 2 Plan Continue postop antibiotics Continue gentle hydration Resume antiplatelet therapy per cardiology and general surgery Advance diet per surgery Bronchodilators as needed geoff you. encourage OOB. Problems: MARY BARKER MD, [facility] Oct 06, 2016 19:59
[2016-10-06] MEDS: ATORVASTATIN 80 MG TAB PO SCH (20:52)
[2016-10-06] MEDS: clonAZEPAM 0.5 MG TAB PO PRN (23:54)
[2016-10-07] VITALS (12 sets, daily range): BP systolic 126–160; BP diastolic 60–78; PULSE 69–83; RESP 16–20
[2016-10-07] MEDS: INSULIN ASPART [NOVOLOG] 3 ML PEN SC SCH ×4 (06:00→17:36)
[2016-10-07] MEDS: PIPER-TAZO 2.25 GM (PMX) 50 ML IVPB SCH ×3 (06:28→21:07)
[2016-10-07] MEDS: PANTOPRAZOLE 40 MG INJ IV SCH (06:28)
--- NOTE | 2016-10-07 08:06 | CONS ---
Date/Time of Note Date/Time of Note DATE: 10/07/16 TIME: 08:04 Assessment/Plan Assessment/Plan Chief Complaint/Hosp Course SBO with incarcerated inguinal hernia: Improved after hernia reduction under anesthesia. This would be an intermediate risk surgery and he is at intermediate -high risk for surgery due to his prior cardiac issues though all is stable at this time.Plan for definitive repair Sunday h/o CAD s/p CABG/PCI: No e/o ischemia ICM (EF 20%): compensated by my exam Recurrent pulm edema: from HTN and renal artery stenosis as well as anxiety. No recurrence >1 month VT s/p ICD PVD s/p bilateral renal artery stenting and CEA CKD (baseline Cr mid 2s) HTN -ok to proceed with surgery as planned as pt is medically optimized at this time -no need for heparin drip pre-op from a cardiac perspective. ASA is adequate for his stent -advance diet as tolerated -lasix 20mg PO daily -ok to continue to hold plavix until after surgery as >6 months post PCI ( restart when ok post-op) -continue ASA ivana-op -continue coreg 12.5mg BID -hydralazine 100mg TID -isordil 20mg TID -add amlodipine 5mg Problems: Consultation Date/Type/Reason Admit Date/Time Oct 05, 2016 at 12:04 Initial Consult Date 10/05/16 Type of Consultation: Cardiology Referring Provider: SANJUANITA SPAULDING 24 HR Interval Summary Free Text/Dictation No o/n events. Spoke with Dr. Decker. Plan for surgery Sunday Exam/Review of Systems Vital Signs Vitals Vital Signs Date Time Temp Pulse Resp B/P Pulse Ox O2 Delivery O2 Flow Rate FiO2 10/07/16 07:11 97.8 71 16 149/70 96 10/06/16 08:00 Nasal Cannula 2.0 10/04/16 23:35 27 Intake and Output 10/06/16 10/06/16 10/07/16 15:00 23:00 07:00 Intake Total 800 ml 450 ml Output Total 850 ml 900 ml Balance -50 ml -450 ml Exam Constitutional: alert, oriented Psych: no complaints Head: atraumatic, normocephalic Neck: No jvd Respiratory: clear to auscultation, No crackles/rales Cardiovascular: regular rate and rhythm, No edema Gastrointestinal: non-tender, soft Neurological: nl mental status, nl speech Results Result Diagram: 10/06/16 0855 10/06/16 0855 Results 24 hrs Laboratory Tests Test 10/06/16 08:55 10/06/16 12:14 10/06/16 17:38 10/07/16 06:27 White Blood Count 8.0 # Red Blood Count 3.51 L Hemoglobin 10.0 L Hematocrit 30.9 L Mean Corpuscular Volume 88.0 Mean Corpuscular Hemoglobin 28.5 L Mean Corpuscular Hemoglobin Concent 32.4 Red Cell Distribution Width 13.1 Platelet Count 332 Mean Platelet Volume 11.2 H Neutrophils % 68.6 Lymphocytes % 13.1 L Monocytes % 16.3 H Eosinophils % 0.6 Basophils % 0.4 Nucleated Red Blood Cells % 0.0 Neutrophils # 5.5 Lymphocytes # 1.1 Monocytes # 1.3 H Eosinophils # 0.1 Basophils # 0.0 Nucleated Red Blood Cells # 0.0 Sodium Level 138 Potassium Level 3.1 L Chloride Level 100 Carbon Dioxide Level 26 Anion Gap 15 Blood Urea Nitrogen 43 H Creatinine 2.27 H Glucose Level 73 # Calcium Level 8.5 Bedside Glucose 131 95 89 Medications Medications Current Medications Ondansetron HCl (Zofran Inj) 4 mg Q6H PRN IV NAUSEA AND/OR VOMITING; Start 10/04 at 19:00 Acetaminophen (Tylenol Tab) 650 mg Q6H PRN PO PAIN LEVEL 1-3 OR FEVER; Start at 19:00 Acetaminophen/ Hydrocodone Bitart ([place] (5/325)) 1 tab Q6H PRN PO MODERATE PAIN LEVEL 4-6; Start 10/04/16 at 19:00 Morphine Sulfate (morphine) 2 mg Q4H PRN IV SEVERE PAIN LEVEL 7-10; Start at 19:00 Docusate Sodium (Colace) 100 mg Q12H PRN PO CONSTIPATION; Start 10/04/16 at 19: 00 Magnesium Hydroxide (Milk Of Mag) 30 ml DAILY PRN PO CONSTIPATION; Start at 19:00 Sodium Biphosphate/ Sodium Phosphate (Fleet Enema) 133 ml DAILY PRN [place] CONSTIPATION; Start 10/04/16 at 19:00 Pantoprazole (Protonix Iv) 40 mg DAILY@06 IV Last administered on 7/8/17at 06: 28; Admin Dose 40 MG; Start 10/05/16 at 06:00 Hydralazine HCl (Apresoline) 10 mg Q6H PRN IV ELEVATED BLOOD PRESSURE; Start at 19:00 Nitroglycerin (Nitroglycerin (Sl Tab) 0.4 Mg) 1 tab Q5M PRN SL ANGINA; Start at 19:00 Eye Lubricant (Artificial Tears Oph) 1 drop TID BOTH EYES Last administered on 10/06/16 20:49; Admin Dose 1 DROP; Start 10/04/16 at 21:00 Amiodarone HCl (Cordarone) 100 mg DAILY PO Last administered on 10/06/16 08:13 ; Admin Dose 100 MG; Start 10/05/16 at 09:00 Aspirin (Aspirin) 81 mg DAILY PO Last administered on 10/06/16 08:09; Admin Dose 81 MG; Start 10/05/16 at 09:00 Atorvastatin Calcium (Lipitor) 80 mg QHS PO Last administered on 10/06/16 20:52 ; Admin Dose 80 MG; Start 10/04/16 at 21:00 Carvedilol (Coreg) 12.5 mg BID PO Last administered on 10/06/16 20:51; Admin Dose 12.5 MG; Start 10/04/16 at 21:00 EZETIMIBE (Zetia) 10 mg DAILY PO Last administered on 10/06/16 08:09; Admin Dose 10 MG; Start 10/05/16 at 09:00 Hydralazine HCl (Apresoline) 100 mg TID PO Last administered on 10/06/16 20:51 ; Admin Dose 100 MG; Start 10/04/16 at 21:00 Isosorbide Dinitrate (Isordil) 20 mg TID PO Last administered on 10/06/16 20:52 ; Admin Dose 20 MG; Start 10/04/16 at 21:00 Zolpidem Tartrate (Ambien) 10 mg QHS PRN PO INSOMNIA; Start 10/04/16 at 19:00 Miscellaneous Information 1 ea NOTE XX ; Start 10/04/16 at 19:30 Glucose (Glutose) 15 gm Q15M PRN PO DECREASED GLUCOSE; Start 10/04/16 at 19:30 Glucose (Glutose) 22.5 gm Q15M PRN PO DECREASED GLUCOSE; Start 10/04/16 at 19:30 Dextrose (D50w Syringe) 25 ml Q15M PRN IV DECREASED GLUCOSE; Start 10/04/16 at 19:30 Dextrose (D50w Syringe) 50 ml Q15M PRN IV DECREASED GLUCOSE; Start 10/04/16 at 19:30 Glucagon (Glucagen) 1 mg Q15M PRN IM DECREASED GLUCOSE; Start 10/04/16 at 19:30 Glucose 15 gm 15 gm Q15M PRN BUCCAL DECREASED GLUCOSE; Start 10/04/16 at 19:30 Piperacillin Sod/ Tazobactam Sod (Zosyn 2.25gm/ 50ml (Pmx)) 50 ml @ 100 mls/hr Q8 IVPB Last administered on 10/07/16 06:28; Admin Dose 100 MLS/HR; Start at 23:00 Sertraline HCl (Zoloft) 50 mg DAILY@17 PO Last administered on 10/06/16 17:57; Admin Dose 50 MG; Start 10/05/16 at 17:00 Clonazepam (Klonopin) 0.5 mg Q8H PRN PO ANXIETY Last administered on 10/06/16 23:54; Admin Dose 0.5 MG; Start 10/05/16 at 10:30 Furosemide (Lasix) 20 mg DAILY PO Last administered on 10/06/16 08:13; Admin Dose 20 MG; Start 10/05/16 at 18:00 Insulin Aspart (Novolog Insulin Pen) NOVOLOG *MILD* ALGORI... Q6 SC ; Start 10/06 at 06:00 EMILY TREVIÑO Oct 07, 2016 08:06
[2016-10-07] MEDS ORDERED: FUROSEMIDE 20 MG INJ IV ONE (08:30)
[2016-10-07] MEDS: ASPIRIN 81 MG TAB PO SCH (08:55)
[2016-10-07] MEDS: AMIODARONE 200 MG TAB PO SCH (08:56)
[2016-10-07] MEDS: ISOSORBIDE DINITRATE 20 MG TAB PO SCH ×3 (08:58→21:06)
[2016-10-07] MEDS: EZETIMIBE 10 MG TAB PO SCH (08:58)
[2016-10-07] MEDS ORDERED: AMLODIPINE 5 MG TAB PO SCH (09:00)
[2016-10-07] MEDS: ARTIFICIAL TEARS 15 ML OPH BOTH EYES SCH ×3 (09:01→21:00)
[2016-10-07 09:25] LABS: ADD SCAN DIFF NO
[2016-10-07 09:35] LABS: BASOPHIL # 0.1 10^3/ul (0.0-0.1); BASOPHILS % 0.5 % (0.0-2.0); EOSINOPHILS # 0.2 10^3/ul (0.0-0.5); EOSINOPHILS % 1.8 % (0.0-7.0); HEMATOCRIT 33.6 % (42.0-52.0); HEMOGLOBIN 10.6 g/dl (14.0-18.0); LYMPHOCYTES # 1.5 10^3/ul (0.8-2.9); LYMPHOCYTES % 15.4 % (15.0-51.0); MEAN CORPUSCULAR HEMOGLOBIN 27.3 pg (29.0-33.0); MEAN CORPUSCULAR HGB CONC 31.5 g/dl (32.0-37.0); MEAN CORPUSCULAR VOLUME 86.6 fl (82.0-101.0); MEAN PLATELET VOLUME 11.3 fl (7.4-10.4); MONOCYTE # 1.3 10^3/ul (0.3-0.9); MONOCYTES % 12.7 % (0.0-11.0); NEUTROPHIL # 6.7 10^3/ul (1.6-7.5); NEUTROPHILS % 67.5 % (39.0-77.0); PLATELET COUNT 362 10^3/UL (140-415); RED BLOOD COUNT 3.88 10^6/ul (4.70-6.10); WHITE BLOOD COUNT 9.9 10^3/ul (4.8-10.8)
[2016-10-07 09:50] LABS: CALCIUM 8.8 mg/dl (8.4-10.2); CREATININE 1.93 mg/dl (0.61-1.24); POTASSIUM 3.4 mmol/L (3.5-5.1)
--- NOTE | 2016-10-07 10:00 | PN ---
Date/Time of Note Date/Time of Note DATE: 10/07/16 TIME: 09:57 Assessment/Plan Assessment/Plan Assessment/Plan [facility] Progress Note Date of Service: 10/07/16 Today's Impression & Plan: Overall remains stable and improving. + evidence for slow resolution of SBO. With above assessment, I've recommended the following for today: 1. Continue current cares 2. Regular diet 3. Anticoagulation per cardiology; can continue aspirin throughout; if on heparin, please hold the night before surgery (currently Sunday night) 4. Labs in am 5. Keep inhouse Thank you again for your great care of this very pleasant patient and wonderful family. If there are any questions, please feel free to call me at [phone]. Disclaimer: Inadvertent spelling or grammatical errors are likely due to EHR/ dictation software use and do not reflect on the overall quality of patient care. Updated Clinical Summary: A very-pleasant 65-year-old gentleman with multiple comorbid issues including severe cardiopulmonary disease, presenting with a very difficult issue of small bowel obstruction in the setting of incarcerated left inguinal hernia containing small bowel. Comorbidities: 1. Small bowel obstruction with incarcerated left inguinal hernia 2. Coronary artery disease, status post CABG October 2015 with subsequent graft closure requiring PTCA with stenting 3. Ischemic cardiomyopathy: Ejection fraction approximately 20-25% 4. Status post ICD for secondary prevention 5. Severe atherosclerotic vascular disease 6. Peripheral vascular disease 7. Chronic kidney disease with renal insufficiency (creatinine between 2-1/2-3- 1/2) 8. Right-sided renal artery stenosis, status post bilateral renal artery stents and angioplasty in July 2016 9. Hypertension 10. Significant pulmonary disease with multiple admissions for lung problems including acute respiratory failure secondary to recurrent flash pulmonary edema and hypertensive emergency 11. Significant cardiac disease as above with multiple admissions for cardiac problems 12. Former smoker 13. 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 First-degree AV block, LAD, and left bundle branch block 15. Lesion of ramus coronary artery 16. History of shock 17. Hyperkalemia 18. Carotid stenosis, status post carotid endarterectomy 19. COPD 20. Extensive atherosclerotic vascular disease including ectasia of the distal thoracic aorta measuring up to 3.7 cm in multiple segments of intraluminal curvilinear calcifications suggesting multi focal chronic dissection (CT abdomen and pelvis [facility] 10/04/2016). 21. Cardiomegaly (CT abdomen and pelvis [facility] 10/04/2016). 22. Small nonobstructing bilateral renal calculi (CT abdomen and pelvis [facility] 10/04/2016). 23. Hyperuricemia 24. S/p an otherwise uncomplicated exam under anesthesia at [facility] 10/04/16 with successful reduction of left inguinal incarcerated region without any obvious evident complication. Subjective: No major events or complaints; feels much improved; no abd pain and under control with medications; no n/v/d; no sob or cp; + flatus; + BM; + activity Objective: Vitals: See below Exam: GENERAL: On exam, the patient was laying in bed and appeared to be comfortable and in no acute distress. ABDOMEN: Soft, nontender and nondistended. There are no peritoneal signs or guarding. L groin area with small discomfort with pressure, but no evidence of strangulated hernia. SKIN: Skin appears to be pink and feels warm to touch. NEUROLOGIC: Patient is awake, alert, and follows commands appropriately. Exam/Review of Systems Vital Signs Vitals Vital Signs Date Time Temp Pulse Resp B/P Pulse Ox O2 Delivery O2 Flow Rate FiO2 10/07/16 08:12 69 10/07/16 07:11 97.8 16 149/70 96 10/06/16 08:00 Nasal Cannula 2.0 10/04/16 23:35 27 Intake and Output 10/06/16 10/06/16 10/07/16 15:00 23:00 07:00 Intake Total 800 ml 450 ml Output Total 850 ml 900 ml Balance -50 ml -450 ml Results Result Diagram: 10/07/16 0840 10/07/16 0840 BLESSING HINSON M.D. Oct 07, 2016 09:59
--- NOTE | 2016-10-07 17:50 | CONS ---
Date/Time of Note Date/Time of Note DATE: 10/07/16 TIME: 17:48 Consult Date/Type/Reason Admit Date/Time Oct 05, 2016 at 12:04 Initial Consult Date 10/05/16 Type of Consultation: Pulm Ordering Provider: SANJUANITA SPAULDING Subjective No events. No SOB Objective Vital Signs Date Time Temp Pulse Resp B/P Pulse Ox O2 Delivery O2 Flow Rate FiO2 10/07/16 16:28 70 10/07/16 15:08 98.2 18 149/78 99 10/06/16 08:00 Nasal Cannula 2.0 10/04/16 23:35 27 Intake and Output 10/06/16 10/06/16 10/07/16 15:00 23:00 07:00 Intake Total 800 ml 450 ml Output Total 850 ml 900 ml Balance -50 ml -450 ml Exam NECK: Supple. No JVD or lymphadenopathy. CARDIAC EXAM: S1, S2. No added sounds or murmurs. CHEST: clear bilaterally, No added sounds, rales or wheezes ABDOMEN: Soft, nontender. No guarding or rebound. EXTREMITIES: No cyanosis, clubbing or edema. Results/Medications Result Diagram: 10/07/16 0840 10/07/16 0840 Results 24 hrs Laboratory Tests Test 10/07/16 06:27 10/07/16 08:40 10/07/16 11:55 10/07/16 17:05 Bedside Glucose 89 139 121 White Blood Count 9.9 # Red Blood Count 3.88 L Hemoglobin 10.6 L Hematocrit 33.6 L Mean Corpuscular Volume 86.6 Mean Corpuscular Hemoglobin 27.3 L Mean Corpuscular Hemoglobin Concent 31.5 L Red Cell Distribution Width 13.0 Platelet Count 362 Mean Platelet Volume 11.3 H Neutrophils % 67.5 Lymphocytes % 15.4 Monocytes % 12.7 H Eosinophils % 1.8 Basophils % 0.5 Nucleated Red Blood Cells % 0.0 Neutrophils # 6.7 Lymphocytes # 1.5 Monocytes # 1.3 H Eosinophils # 0.2 Basophils # 0.1 Nucleated Red Blood Cells # 0.0 Sodium Level 138 Potassium Level 3.4 L Chloride Level 101 Carbon Dioxide Level 25 Anion Gap 15 Blood Urea Nitrogen 33 H Creatinine 1.93 H Glucose Level 96 Calcium Level 8.8 Medications Current Medications Ondansetron HCl (Zofran Inj) 4 mg Q6H PRN IV NAUSEA AND/OR VOMITING; Start 10/04 at 19:00 Acetaminophen (Tylenol Tab) 650 mg Q6H PRN PO PAIN LEVEL 1-3 OR FEVER; Start at 19:00 Acetaminophen/ Hydrocodone Bitart ([place] (5/325)) 1 tab Q6H PRN PO MODERATE PAIN LEVEL 4-6; Start 10/04/16 at 19:00 Morphine Sulfate (morphine) 2 mg Q4H PRN IV SEVERE PAIN LEVEL 7-10; Start at 19:00 Docusate Sodium (Colace) 100 mg Q12H PRN PO CONSTIPATION; Start 10/04/16 at 19: 00 Magnesium Hydroxide (Milk Of Mag) 30 ml DAILY PRN PO CONSTIPATION; Start at 19:00 Sodium Biphosphate/ Sodium Phosphate (Fleet Enema) 133 ml DAILY PRN [place] CONSTIPATION; Start 10/04/16 at 19:00 Pantoprazole (Protonix Iv) 40 mg DAILY@06 IV Last administered on 10/07/16 06: 28; Admin Dose 40 MG; Start 10/05/16 at 06:00 Hydralazine HCl (Apresoline) 10 mg Q6H PRN IV ELEVATED BLOOD PRESSURE; Start at 19:00 Nitroglycerin (Nitroglycerin (Sl Tab) 0.4 Mg) 1 tab Q5M PRN SL ANGINA; Start at 19:00 Eye Lubricant (Artificial Tears Oph) 1 drop TID BOTH EYES Last administered on 10/07/16 09:01; Admin Dose 1 DROP; Start 10/04/16 at 21:00 Amiodarone HCl (Cordarone) 100 mg DAILY PO Last administered on 10/07/16 08:56 ; Admin Dose 100 MG; Start 10/05/16 at 09:00 Aspirin (Aspirin) 81 mg DAILY PO Last administered on 10/07/16 08:55; Admin Dose 81 MG; Start 10/05/16 at 09:00 Atorvastatin Calcium (Lipitor) 80 mg QHS PO Last administered on 10/06/16 20:52 ; Admin Dose 80 MG; Start 10/04/16 at 21:00 Carvedilol (Coreg) 12.5 mg BID PO Last administered on 10/07/16 08:57; Admin Dose 12.5 MG; Start 10/04/16 at 21:00 EZETIMIBE (Zetia) 10 mg DAILY PO Last administered on 10/07/16 08:58; Admin Dose 10 MG; Start 10/05/16 at 09:00 Hydralazine HCl (Apresoline) 100 mg TID PO Last administered on 10/07/16 13:17 ; Admin Dose 100 MG; Start 10/04/16 at 21:00 Isosorbide Dinitrate (Isordil) 20 mg TID PO Last administered on 10/07/16 13:17 ; Admin Dose 20 MG; Start 10/04/16 at 21:00 Zolpidem Tartrate (Ambien) 10 mg QHS PRN PO INSOMNIA; Start 10/04/16 at 19:00 Miscellaneous Information 1 ea NOTE XX ; Start 10/04/16 at 19:30 Glucose (Glutose) 15 gm Q15M PRN PO DECREASED GLUCOSE; Start 10/04/16 at 19:30 Glucose (Glutose) 22.5 gm Q15M PRN PO DECREASED GLUCOSE; Start 10/04/16 at 19:30 Dextrose (D50w Syringe) 25 ml Q15M PRN IV DECREASED GLUCOSE; Start 10/04/16 at 19:30 Dextrose (D50w Syringe) 50 ml Q15M PRN IV DECREASED GLUCOSE; Start 10/04/16 at 19:30 Glucagon (Glucagen) 1 mg Q15M PRN IM DECREASED GLUCOSE; Start 10/04/16 at 19:30 Glucose 15 gm 15 gm Q15M PRN BUCCAL DECREASED GLUCOSE; Start 10/04/16 at 19:30 Piperacillin Sod/ Tazobactam Sod (Zosyn 2.25gm/ 50ml (Pmx)) 50 ml @ 100 mls/hr Q8 IVPB Last administered on 10/07/16 13:17; Admin Dose 100 MLS/HR; Start at 23:00 Sertraline HCl (Zoloft) 50 mg DAILY@17 PO Last administered on 10/06/16 17:57; Admin Dose 50 MG; Start 10/05/16 at 17:00 Clonazepam (Klonopin) 0.5 mg Q8H PRN PO ANXIETY Last administered on 10/06/16 23:54; Admin Dose 0.5 MG; Start 10/05/16 at 10:30 Insulin Aspart (Novolog Insulin Pen) NOVOLOG *MILD* ALGORI... Q6 SC ; Start 10/06 at 06:00 Amlodipine Besylate (Norvasc) 5 mg DAILY PO Last administered on 10/07/16t 09:16 ; Admin Dose 5 MG; Start 10/07/16 at 09:00 Furosemide (Lasix) 20 mg DAILY PO ; Start 10/08/16 at 09:00 Assessment/Plan Additional Assessment/Plan IMP: Incarcerated inguinal hernia status post surgical repair. Doing extremely well from surgical standpoint. Stable COPD Stable coronary artery disease with ischemic cardiomyopathy Chronic kidney disease with baseline creatinine around 2 RECS: ICS BD's PT/OT encourage OOB. CLARICE COTE MD Oct 07, 2016 17:50
[2016-10-07] MEDS: SERTRALINE 50 MG TAB PO SCH (18:04)
--- NOTE | 2016-10-07 18:59 | PN ---
Date/Time of Note Date/Time of Note DATE: 10/07/16 TIME: 18:54 Assessment/Plan VTE Prophylaxis VTE Prophylaxis Intervention: SCD's Lines/Catheters IV Catheter Type (from Nrs): Peripheral IV Assessment/Plan Chief Complaint/Hosp Course Subjective: Events noted Objective: Vital signs stable PE No pallor JVD Reg no m/r/g CTAB no tachypnea Bs dimin; mild tender. no r/r/g No edema Assessment and plan 1. Small bowel obstruction, stable, treat hernia. Tentative surgery Sunday. Hold Plavix 2. Incarcerated inguinal hernia. Reduced. Surgery Sunday. Intermediate to high risk due to comorbidities. 3. Chronic COPD 4. Chronic CAD/CABG. Stable hold Plavix 4. Tobacco abuse 5. Paratracheal mass. Refused intervention. 7. Chronic CKD 8. Carotid stenosis status post endarterectomy 9. Chronic renal artery stenosis, status post stent. Stable observe 10. Recurrent flash pulmonary edema. Potentially a postop issue. Will observe and utilize Lasix as needed. 11. Anemia 12. AICD status due to DVT.. Does it need any periop intervention prior to surgery? 13. Past tobacco Problems: Exam/Review of Systems Vital Signs Vitals Vital Signs Date Time Temp Pulse Resp B/P Pulse Ox O2 Delivery O2 Flow Rate FiO2 10/07/16 16:28 70 10/07/16 15:08 98.2 18 149/78 99 10/06/16 08:00 Nasal Cannula 2.0 10/04/16 23:35 27 Intake and Output 10/06/16 10/06/16 10/07/16 15:00 23:00 07:00 Intake Total 800 ml 450 ml Output Total 850 ml 900 ml Balance -50 ml -450 ml Results Result Diagram: 10/07/16 0840 10/07/16 0840 Results 24 hrs Laboratory Tests Test 10/07/16 06:27 10/07/16 08:40 10/07/16 11:55 10/07/16 17:05 Bedside Glucose 89 139 121 White Blood Count 9.9 # Red Blood Count 3.88 L Hemoglobin 10.6 L Hematocrit 33.6 L Mean Corpuscular Volume 86.6 Mean Corpuscular Hemoglobin 27.3 L Mean Corpuscular Hemoglobin Concent 31.5 L Red Cell Distribution Width 13.0 Platelet Count 362 Mean Platelet Volume 11.3 H Neutrophils % 67.5 Lymphocytes % 15.4 Monocytes % 12.7 H Eosinophils % 1.8 Basophils % 0.5 Nucleated Red Blood Cells % 0.0 Neutrophils # 6.7 Lymphocytes # 1.5 Monocytes # 1.3 H Eosinophils # 0.2 Basophils # 0.1 Nucleated Red Blood Cells # 0.0 Sodium Level 138 Potassium Level 3.4 L Chloride Level 101 Carbon Dioxide Level 25 Anion Gap 15 Blood Urea Nitrogen 33 H Creatinine 1.93 H Glucose Level 96 Calcium Level 8.8 Medications Medications Current Medications Ondansetron HCl (Zofran Inj) 4 mg Q6H PRN IV NAUSEA AND/OR VOMITING; Start 10/04 at 19:00 Acetaminophen (Tylenol Tab) 650 mg Q6H PRN PO PAIN LEVEL 1-3 OR FEVER; Start at 19:00 Acetaminophen/ Hydrocodone Bitart ([place] (5/325)) 1 tab Q6H PRN PO MODERATE PAIN LEVEL 4-6; Start 10/04/16 at 19:00 Morphine Sulfate (morphine) 2 mg Q4H PRN IV SEVERE PAIN LEVEL 7-10; Start at 19:00 Docusate Sodium (Colace) 100 mg Q12H PRN PO CONSTIPATION; Start 10/04/16 at 19: 00 Magnesium Hydroxide (Milk Of Mag) 30 ml DAILY PRN PO CONSTIPATION; Start at 19:00 Sodium Biphosphate/ Sodium Phosphate (Fleet Enema) 133 ml DAILY PRN [place] CONSTIPATION; Start 10/04/16 at 19:00 Pantoprazole (Protonix Iv) 40 mg DAILY@06 IV Last administered on 10/07/16 06: 28; Admin Dose 40 MG; Start 10/05/16 at 06:00 Hydralazine HCl (Apresoline) 10 mg Q6H PRN IV ELEVATED BLOOD PRESSURE; Start at 19:00 Nitroglycerin (Nitroglycerin (Sl Tab) 0.4 Mg) 1 tab Q5M PRN SL ANGINA; Start at 19:00 Eye Lubricant (Artificial Tears Oph) 1 drop TID BOTH EYES Last administered on 10/07/16 09:01; Admin Dose 1 DROP; Start 10/04/16 at 21:00 Amiodarone HCl (Cordarone) 100 mg DAILY PO Last administered on 10/07/16 08:56 ; Admin Dose 100 MG; Start 10/05/16 at 09:00 Aspirin (Aspirin) 81 mg DAILY PO Last administered on 10/07/16 08:55; Admin Dose 81 MG; Start 10/05/16 at 09:00 Atorvastatin Calcium (Lipitor) 80 mg QHS PO Last administered on 10/06/16 20:52 ; Admin Dose 80 MG; Start 10/04/16 at 21:00 Carvedilol (Coreg) 12.5 mg BID PO Last administered on 10/07/16 08:57; Admin Dose 12.5 MG; Start 10/04/16 at 21:00 EZETIMIBE (Zetia) 10 mg DAILY PO Last administered on 10/07/16 08:58; Admin Dose 10 MG; Start 10/05/16 at 09:00 Hydralazine HCl (Apresoline) 100 mg TID PO Last administered on 10/07/16 13:17 ; Admin Dose 100 MG; Start 10/04/16 at 21:00 Isosorbide Dinitrate (Isordil) 20 mg TID PO Last administered on 10/07/16 13:17 ; Admin Dose 20 MG; Start 10/04/16 at 21:00 Zolpidem Tartrate (Ambien) 10 mg QHS PRN PO INSOMNIA; Start 10/04/16 at 19:00 Miscellaneous Information 1 ea NOTE XX ; Start 10/04/16 at 19:30 Glucose (Glutose) 15 gm Q15M PRN PO DECREASED GLUCOSE; Start 10/04/16 at 19:30 Glucose (Glutose) 22.5 gm Q15M PRN PO DECREASED GLUCOSE; Start 10/04/16 at 19:30 Dextrose (D50w Syringe) 25 ml Q15M PRN IV DECREASED GLUCOSE; Start 10/04/16 at 19:30 Dextrose (D50w Syringe) 50 ml Q15M PRN IV DECREASED GLUCOSE; Start 10/04/16 at 19:30 Glucagon (Glucagen) 1 mg Q15M PRN IM DECREASED GLUCOSE; Start 10/04/16 at 19:30 Glucose 15 gm 15 gm Q15M PRN BUCCAL DECREASED GLUCOSE; Start 10/04/16 at 19:30 Piperacillin Sod/ Tazobactam Sod (Zosyn 2.25gm/ 50ml (Pmx)) 50 ml @ 100 mls/hr Q8 IVPB Last administered on 10/07/16 13:17; Admin Dose 100 MLS/HR; Start at 23:00 Sertraline HCl (Zoloft) 50 mg DAILY@17 PO Last administered on 10/07/16 18:04; Admin Dose 50 MG; Start 10/05/16 at 17:00 Clonazepam (Klonopin) 0.5 mg Q8H PRN PO ANXIETY Last administered on 10/06/16 23:54; Admin Dose 0.5 MG; Start 10/05/16 at 10:30 Insulin Aspart (Novolog Insulin Pen) NOVOLOG *MILD* ALGORI... Q6 SC ; Start 10/06 at 06:00 Amlodipine Besylate (Norvasc) 5 mg DAILY PO Last administered on 10/07/16 09:16 ; Admin Dose 5 MG; Start 10/07/16 at 09:00 Furosemide (Lasix) 20 mg DAILY PO ; Start 10/08/16 at 09:00 FAN ALVAREZ MD Oct 07, 2016 18:59
[2016-10-07] MEDS: ENOXAPARIN 40 MG/0.4 ML SYG SC SCH (19:44)
[2016-10-07] MEDS: ATORVASTATIN 80 MG TAB PO SCH (21:06)
[2016-10-07] MEDS: clonAZEPAM 0.5 MG TAB PO PRN (23:00)
[2016-10-08] VITALS (10 sets, daily range): BP systolic 145–169; BP diastolic 64–80; PULSE 70–80; RESP 18–20
[2016-10-08] MEDS: PIPER-TAZO 2.25 GM (PMX) 50 ML IVPB SCH ×3 (05:59→20:25)
[2016-10-08] MEDS: INSULIN ASPART [NOVOLOG] 3 ML PEN SC SCH ×2 (06:00)
--- NOTE | 2016-10-08 08:06 | CONS ---
Date/Time of Note Date/Time of Note DATE: 10/08/16 TIME: 08:03 Assessment/Plan Assessment/Plan Chief Complaint/Hosp Course SBO with incarcerated inguinal hernia: Resolved after hernia reduction under anesthesia. This would be an intermediate risk surgery and he is at intermediate -high risk for surgery due to his prior cardiac issues though all is stable at this time.Plan for definitive repair this week h/o CAD s/p CABG/PCI: No e/o ischemia ICM (EF 20%): Mild CHF yesterday, now resolved Recurrent pulm edema: from HTN and renal artery stenosis as well as anxiety. No recurrence >1 month VT s/p ICD PVD s/p bilateral renal artery stenting and CEA CKD (baseline Cr mid 2s): currently better than baseline HTN -ok to proceed with surgery as planned as pt is medically optimized at this time -no need for heparin drip pre-op from a cardiac perspective. ASA is adequate for his stent -increase to amlodipine 10mg -lasix 20mg PO daily -ok to continue to hold plavix until after surgery as >6 months post PCI ( restart when ok post-op) -continue ASA ivana-op -continue coreg 12.5mg BID -hydralazine 100mg TID -isordil 20mg TID Problems: Consultation Date/Type/Reason Admit Date/Time Oct 05, 2016 at 12:04 Initial Consult Date 10/05/16 Type of Consultation: Cardiology Referring Provider: SANJUANITA SPAULDING 24 HR Interval Summary Free Text/Dictation SBP 185 this am, given IV hydralazine. Had some SOB with elevated BP, now better. Exam/Review of Systems Vital Signs Vitals Vital Signs Date Time Temp Pulse Resp B/P Pulse Ox O2 Delivery O2 Flow Rate FiO2 10/08/16 07:19 97.9 84 18 162/72 96 10/08/16 03:50 21 10/07/16 19:34 Nasal Cannula 2.0 Intake and Output 10/07/16 10/07/16 10/08/16 15:00 23:00 07:00 Intake Total 660 ml 500 ml Output Total 800 ml Balance 660 ml -300 ml Exam Constitutional: alert, oriented Psych: no complaints Head: atraumatic, normocephalic Neck: No jvd Respiratory: clear to auscultation, No crackles/rales Cardiovascular: regular rate and rhythm, No edema Gastrointestinal: non-tender, soft Neurological: nl mental status, nl speech Results Result Diagram: 10/07/16 0840 10/07/16 0840 Results 24 hrs Laboratory Tests Test 10/07/16 08:40 10/07/16 11:55 10/07/16 17:05 10/08/16 06:22 White Blood Count 9.9 # Red Blood Count 3.88 L Hemoglobin 10.6 L Hematocrit 33.6 L Mean Corpuscular Volume 86.6 Mean Corpuscular Hemoglobin 27.3 L Mean Corpuscular Hemoglobin Concent 31.5 L Red Cell Distribution Width 13.0 Platelet Count 362 Mean Platelet Volume 11.3 H Neutrophils % 67.5 Lymphocytes % 15.4 Monocytes % 12.7 H Eosinophils % 1.8 Basophils % 0.5 Nucleated Red Blood Cells % 0.0 Neutrophils # 6.7 Lymphocytes # 1.5 Monocytes # 1.3 H Eosinophils # 0.2 Basophils # 0.1 Nucleated Red Blood Cells # 0.0 Sodium Level 138 Potassium Level 3.4 L Chloride Level 101 Carbon Dioxide Level 25 Anion Gap 15 Blood Urea Nitrogen 33 H Creatinine 1.93 H Glucose Level 96 Calcium Level 8.8 Bedside Glucose 139 121 108 Medications Medications Current Medications Ondansetron HCl (Zofran Inj) 4 mg Q6H PRN IV NAUSEA AND/OR VOMITING; Start 10/04 at 19:00 Acetaminophen (Tylenol Tab) 650 mg Q6H PRN PO PAIN LEVEL 1-3 OR FEVER; Start at 19:00 Acetaminophen/ Hydrocodone Bitart ([place] (5/325)) 1 tab Q6H PRN PO MODERATE PAIN LEVEL 4-6; Start 10/04/16 at 19:00 Morphine Sulfate (morphine) 2 mg Q4H PRN IV SEVERE PAIN LEVEL 7-10; Start at 19:00 Docusate Sodium (Colace) 100 mg Q12H PRN PO CONSTIPATION; Start 10/04/16 at 19: 00 Magnesium Hydroxide (Milk Of Mag) 30 ml DAILY PRN PO CONSTIPATION; Start at 19:00 Sodium Biphosphate/ Sodium Phosphate (Fleet Enema) 133 ml DAILY PRN [place] CONSTIPATION; Start 10/04/16 at 19:00 Hydralazine HCl (Apresoline) 10 mg Q6H PRN IV ELEVATED BLOOD PRESSURE Last administered on 10/08/16 06:48; Admin Dose 10 MG; Start 10/04/16 at 19:00 Nitroglycerin (Nitroglycerin (Sl Tab) 0.4 Mg) 1 tab Q5M PRN SL ANGINA; Start at 19:00 Eye Lubricant (Artificial Tears Oph) 1 drop TID BOTH EYES Last administered on 10/07/16 09:01; Admin Dose 1 DROP; Start 10/04/16 at 21:00 Amiodarone HCl (Cordarone) 100 mg DAILY PO Last administered on 10/07/16 08:56 ; Admin Dose 100 MG; Start 10/05/16 at 09:00 Aspirin (Aspirin) 81 mg DAILY PO Last administered on 10/07/16 08:55; Admin Dose 81 MG; Start 10/05/16 at 09:00 Atorvastatin Calcium (Lipitor) 80 mg QHS PO Last administered on 10/07/16 21:06 ; Admin Dose 80 MG; Start 10/04/16 at 21:00 Carvedilol (Coreg) 12.5 mg BID PO Last administered on 10/07/16 21:07; Admin Dose 12.5 MG; Start 10/04/16 at 21:00 EZETIMIBE (Zetia) 10 mg DAILY PO Last administered on 10/07/16 08:58; Admin Dose 10 MG; Start 10/05/16 at 09:00 Hydralazine HCl (Apresoline) 100 mg TID PO Last administered on 10/07/16 21:06 ; Admin Dose 100 MG; Start 10/04/16 at 21:00 Isosorbide Dinitrate (Isordil) 20 mg TID PO Last administered on 10/07/16 21:06 ; Admin Dose 20 MG; Start 10/04/16 at 21:00 Zolpidem Tartrate (Ambien) 10 mg QHS PRN PO INSOMNIA; Start 10/04/16 at 19:00 Miscellaneous Information 1 ea NOTE XX ; Start 10/04/16 at 19:30 Glucose (Glutose) 15 gm Q15M PRN PO DECREASED GLUCOSE; Start 10/04/16 at 19:30 Glucose (Glutose) 22.5 gm Q15M PRN PO DECREASED GLUCOSE; Start 10/04/16 at 19:30 Dextrose (D50w Syringe) 25 ml Q15M PRN IV DECREASED GLUCOSE; Start 10/04/16 at 19:30 Dextrose (D50w Syringe) 50 ml Q15M PRN IV DECREASED GLUCOSE; Start 10/04/16 at 19:30 Glucagon (Glucagen) 1 mg Q15M PRN IM DECREASED GLUCOSE; Start 10/04/16 at 19:30 Glucose 15 gm 15 gm Q15M PRN BUCCAL DECREASED GLUCOSE; Start 10/04/16 at 19:30 Piperacillin Sod/ Tazobactam Sod (Zosyn 2.25gm/ 50ml (Pmx)) 50 ml @ 100 mls/hr Q8 IVPB Last administered on 10/08/16 05:59; Admin Dose 100 MLS/HR; Start at 23:00 Sertraline HCl (Zoloft) 50 mg DAILY@17 PO Last administered on 10/07/16 18:04; Admin Dose 50 MG; Start 10/05/16 at 17:00 Clonazepam (Klonopin) 0.5 mg Q8H PRN PO ANXIETY Last administered on 10/07/16 23:00; Admin Dose 0.5 MG; Start 10/05/16 at 10:30 Insulin Aspart (Novolog Insulin Pen) NOVOLOG *MILD* ALGORI... Q6 SC ; Start 10/06 at 06:00 Furosemide (Lasix) 20 mg DAILY PO ; Start 10/08/16 at 09:00 Famotidine (Pepcid) 20 mg DAILY PO ; Start 10/08/16 at 09:00 Enoxaparin Sodium (Lovenox) 40 mg DAILY SC Last administered on 10/07/16 19:44 ; Admin Dose 40 MG; Start 10/07/16 at 19:00; Stop 10/08/16 at 22:00 Amlodipine Besylate (Norvasc) 10 mg DAILY PO ; Start 10/08/16 at 09:00 EMILY TREVIÑO Oct 08, 2016 08:05
[2016-10-08] MEDS: ASPIRIN 81 MG TAB PO SCH (08:10)
[2016-10-08] MEDS: FAMOTIDINE 20 MG TAB PO SCH (08:11)
[2016-10-08] MEDS: EZETIMIBE 10 MG TAB PO SCH (08:11)
[2016-10-08] MEDS: ISOSORBIDE DINITRATE 20 MG TAB PO SCH ×3 (08:12→20:27)
[2016-10-08] MEDS: FUROSEMIDE 20 MG TAB PO SCH (08:12)
[2016-10-08] MEDS: AMLODIPINE 5 MG TAB PO SCH (08:13)
[2016-10-08] MEDS: AMIODARONE 200 MG TAB PO SCH (08:13)
[2016-10-08] MEDS: ARTIFICIAL TEARS 15 ML OPH BOTH EYES SCH ×3 (08:19→20:27)
[2016-10-08] MEDS: ENOXAPARIN 40 MG/0.4 ML SYG SC SCH (08:19)
[2016-10-08] MEDS ORDERED: LORAZEPAM 2 MG INJ IV PRN (08:30)
[2016-10-08 09:52] LABS: ADD SCAN DIFF NO
[2016-10-08 09:55] LABS: EOSINOPHILS # 0.2 10^3/ul (0.0-0.5); HEMATOCRIT 33.4 % (42.0-52.0); NEUTROPHILS % 70.4 % (39.0-77.0)
[2016-10-08 09:59] LABS: BASOPHIL # 0.1 10^3/ul (0.0-0.1); BASOPHILS % 0.6 % (0.0-2.0); HEMOGLOBIN 10.6 g/dl (14.0-18.0); LYMPHOCYTES # 1.6 10^3/ul (0.8-2.9); MEAN CORPUSCULAR HEMOGLOBIN 27.3 pg (29.0-33.0); MEAN CORPUSCULAR HGB CONC 31.7 g/dl (32.0-37.0); MEAN CORPUSCULAR VOLUME 86.1 fl (82.0-101.0); MEAN PLATELET VOLUME 10.6 fl (7.4-10.4); MONOCYTE # 1.2 10^3/ul (0.3-0.9); NEUTROPHIL # 8.7 10^3/ul (1.6-7.5); PLATELET COUNT 395 10^3/UL (140-415); RED BLOOD COUNT 3.88 10^6/ul (4.70-6.10); RED CELL DISTRIBUTION WIDTH 13.1 % (11.5-14.5); WHITE BLOOD COUNT 12.3 10^3/ul (4.8-10.8)
[2016-10-08 10:14] LABS: CALCIUM 8.7 mg/dl (8.4-10.2); CREATININE 1.72 mg/dl (0.61-1.24); POTASSIUM 3.1 mmol/L (3.5-5.1)
--- NOTE | 2016-10-08 10:39 | PN ---
Date/Time of Note Date/Time of Note DATE: 10/08/16 TIME: 10:36 Assessment/Plan VTE Prophylaxis VTE Prophylaxis Intervention: LMWH Lines/Catheters IV [facility]from [facility] Saline Lock Urinary Cath still in place: No Assessment/Plan Chief Complaint/Hosp Course Subjective: 10/07 events noted 10/08: No dyspnea chest pain or abd pain. Positive BM. O: Vss; PE No pallor/ JVD Reg no m/r/g CTAB Bs + mild tender. no r/r/g No edema A/P 1. Small bowel obstruction, stable, treat hernia. Tentative surgery Sunday. Holding Plavix 2. Incarcerated inguinal hernia. Reduced. Surgery Sunday. Intermediate to high risk due to comorbidities. Medically optimized to proceed. 3. Chr COPD 4. Chr CAD/CABG. Stable hold Plavix 4. Tobacco abuse 5. Paratracheal mass. Refused intervention. Hospice/palliative care if symptoms present. 7. Chr CKD 8. Carotid stenosis/ ho endarterectomy 9. Chr renal artery stenosis, stented. Stable observe 10. Recurrent flash pulmonary edema. Potentially a postop issue. Will observe and utilize Lasix as needed. 11. Anemia 12. AICD status; due to VT.. Does it need any periop intervention prior to surgery/ bovie use? Will need to be addressed by cardiology. 13. Past tobacco Problems: Exam/Review of Systems Vital Signs Vitals Vital Signs Date Time Temp Pulse Resp B/P Pulse Ox O2 Delivery O2 Flow Rate FiO2 10/08/16 08:09 80 10/08/16 07:30 Nasal Cannula 2.0 10/08/16 07:19 97.9 18 162/72 96 10/08/16 03:50 21 Intake and Output 10/07/16 10/07/16 10/08/16 15:00 23:00 07:00 Intake Total 660 ml 500 ml Output Total 800 ml Balance 660 ml -300 ml Results Result Diagram: 10/08/1643 10/08/16942 Results 24 hrs Laboratory Tests Test 10/07/16 11:55 10/07/16 17:05 10/08/16 06:22 10/08/16 09:43 Bedside Glucose 139 121 108 White Blood Count 12.3 #H Red Blood Count 3.88 L Hemoglobin 10.6 L Hematocrit 33.4 L Mean Corpuscular Volume 86.1 Mean Corpuscular Hemoglobin 27.3 L Mean Corpuscular Hemoglobin Concent 31.7 L Red Cell Distribution Width 13.1 Platelet Count 395 Mean Platelet Volume 10.6 H Neutrophils % 70.4 Lymphocytes % 13.0 L Monocytes % 10.0 Eosinophils % 2.0 Basophils % 0.6 Nucleated Red Blood Cells % 0.0 Neutrophils # 8.7 H Lymphocytes # 1.6 Monocytes # 1.2 H Eosinophils # 0.2 Basophils # 0.1 Nucleated Red Blood Cells # 0.0 Sodium Level 138 Potassium Level 3.1 L Chloride Level 99 Carbon Dioxide Level 28 Anion Gap 14 Blood Urea Nitrogen 26 H Creatinine 1.72 H Glucose Level 102 Calcium Level 8.7 Medications Medications Current Medications Ondansetron HCl (Zofran Inj) 4 mg Q6H PRN IV NAUSEA AND/OR VOMITING; Start 10/04 at 19:00 Acetaminophen (Tylenol Tab) 650 mg Q6H PRN PO PAIN LEVEL 1-3 OR FEVER; Start at 19:00 Acetaminophen/ Hydrocodone Bitart ([place] (5/325)) 1 tab Q6H PRN PO MODERATE PAIN LEVEL 4-6; Start 10/04/16 at 19:00 Morphine Sulfate (morphine) 2 mg Q4H PRN IV SEVERE PAIN LEVEL 7-10; Start at 19:00 Docusate Sodium (Colace) 100 mg Q12H PRN PO CONSTIPATION; Start 10/04/16 at 19: 00 Magnesium Hydroxide (Milk Of Mag) 30 ml DAILY PRN PO CONSTIPATION; Start at 19:00 Sodium Biphosphate/ Sodium Phosphate (Fleet Enema) 133 ml DAILY PRN [place] CONSTIPATION; Start 10/04/16 at 19:00 Hydralazine HCl (Apresoline) 10 mg Q6H PRN IV ELEVATED BLOOD PRESSURE Last administered on 10/08/16 06:48; Admin Dose 10 MG; Start 10/04/16 at 19:00 Nitroglycerin (Nitroglycerin (Sl Tab) 0.4 Mg) 1 tab Q5M PRN SL ANGINA; Start at 19:00 Eye Lubricant (Artificial Tears Oph) 1 drop TID BOTH EYES Last administered on 10/08/16 08:19; Admin Dose 1 DROP; Start 10/04/16 at 21:00 Amiodarone HCl (Cordarone) 100 mg DAILY PO Last administered on 10/08/16 08:13 ; Admin Dose 100 MG; Start 10/05/16 at 09:00 Aspirin (Aspirin) 81 mg DAILY PO Last administered on 10/08/16 08:10; Admin Dose 81 MG; Start 10/05/16 at 09:00 Atorvastatin Calcium (Lipitor) 80 mg QHS PO Last administered on 10/07/16 21:06 ; Admin Dose 80 MG; Start 10/04/16 at 21:00 Carvedilol (Coreg) 12.5 mg BID PO Last administered on 10/08/16 08:14; Admin Dose 12.5 MG; Start 10/04/16 at 21:00 EZETIMIBE (Zetia) 10 mg DAILY PO Last administered on 10/08/16 08:11; Admin Dose 10 MG; Start 10/05/16 at 09:00 Hydralazine HCl (Apresoline) 100 mg TID PO Last administered on 10/08/16 08:13 ; Admin Dose 100 MG; Start 10/04/16 at 21:00 Isosorbide Dinitrate (Isordil) 20 mg TID PO Last administered on 10/08/16 08:12 ; Admin Dose 20 MG; Start 10/04/16 at 21:00 Zolpidem Tartrate (Ambien) 10 mg QHS PRN PO INSOMNIA; Start 10/04/16 at 19:00 Miscellaneous Information 1 ea NOTE XX ; Start 10/04/16 at 19:30 Glucose (Glutose) 15 gm Q15M PRN PO DECREASED GLUCOSE; Start 10/04/16 at 19:30 Glucose (Glutose) 22.5 gm Q15M PRN PO DECREASED GLUCOSE; Start 10/04/16 at 19:30 Dextrose (D50w Syringe) 25 ml Q15M PRN IV DECREASED GLUCOSE; Start 10/04/16 at 19:30 Dextrose (D50w Syringe) 50 ml Q15M PRN IV DECREASED GLUCOSE; Start 10/04/16 at 19:30 Glucagon (Glucagen) 1 mg Q15M PRN IM DECREASED GLUCOSE; Start 10/04/16 at 19:30 Glucose 15 gm 15 gm Q15M PRN BUCCAL DECREASED GLUCOSE; Start 10/04/16 at 19:30 Piperacillin Sod/ Tazobactam Sod (Zosyn 2.25gm/ 50ml (Pmx)) 50 ml @ 100 mls/hr Q8 IVPB Last administered on 10/08/16 05:59; Admin Dose 100 MLS/HR; Start at 23:00 Sertraline HCl (Zoloft) 50 mg DAILY@17 PO Last administered on 10/07/16 18:04; Admin Dose 50 MG; Start 10/05/16 at 17:00 Clonazepam (Klonopin) 0.5 mg Q8H PRN PO ANXIETY Last administered on 10/07/16 23:00; Admin Dose 0.5 MG; Start 10/05/16 at 10:30 Insulin Aspart (Novolog Insulin Pen) NOVOLOG *MILD* ALGORI... Q6 SC ; Start 10/06 at 06:00 Furosemide (Lasix) 20 mg DAILY PO Last administered on 10/08/16 08:12; Admin Dose 20 MG; Start 10/08/16 at 09:00 Famotidine (Pepcid) 20 mg DAILY PO Last administered on 10/08/16 08:11; Admin Dose 20 MG; Start 10/08/16 at 09:00 Enoxaparin Sodium (Lovenox) 40 mg DAILY SC Last administered on 10/08/16 08:19 ; Admin Dose 40 MG; Start 10/07/16 at 19:00; Stop 10/08/16 at 22:00 Amlodipine Besylate (Norvasc) 10 mg DAILY PO Last administered on 10/08/16 08: 13; Admin Dose 10 MG; Start 10/08/16 at 09:00 Lorazepam (Ativan) 0.5 mg Q6H PRN IV anxiety; Start 10/08/16 at 08:30 FAN ALVAREZ MD Oct 08, 2016 10:39
[2016-10-08] MEDS: POTASSIUM CHLORIDE 20 MEQ POWDER FOR ORAL SOLN PO SCH (11:08)
[2016-10-08] MEDS: THIAMINE 100 MG TAB PO SCH (11:08)
--- NOTE | 2016-10-08 12:17 | PN ---
Date/Time of Note Date/Time of Note DATE: 10/08/16 TIME: 12:16 Assessment/Plan Lines/Catheters IV Catheter Type (from [facility] [place]): Saline Lock [place] in Place (from [facility] [place]): No Assessment/Plan Assessment/Plan [facility] Progress Note Date of Service: 10/08/16 Today's Impression & Plan: Overall remains stable and improving. No indication for acute surgical intervention. SBO seems to have resolved. Awaiting L inguinal hernia repair, scheduled for Tue. Answered all questions. With above assessment, I've recommended the following for today: 1. Continue current cares 2. Regular diet 3. Anticoagulation per cardiology; can continue aspirin throughout; if on heparin, please hold the night before surgery (currently Sunday night) 4. Labs in am 5. Keep inhouse Thank you again for your great care of this very pleasant patient and wonderful family. If there are any questions, please feel free to call me at [phone]. Disclaimer: Inadvertent spelling or grammatical errors are likely due to EHR/ dictation software use and do not reflect on the overall quality of patient care. Updated Clinical Summary: A very-pleasant 65-year-old gentleman with multiple comorbid issues including severe cardiopulmonary disease, presenting with a very difficult issue of small bowel obstruction in the setting of incarcerated left inguinal hernia containing small bowel. Comorbidities: 1. Small bowel obstruction with incarcerated left inguinal hernia 2. Coronary artery disease, status post CABG October 2015 with subsequent graft closure requiring PTCA with stenting 3. Ischemic cardiomyopathy: Ejection fraction approximately 20-25% 4. Status post ICD for secondary prevention 5. Severe atherosclerotic vascular disease 6. Peripheral vascular disease 7. Chronic kidney disease with renal insufficiency (creatinine between 2-1/2-3- 1/2) 8. Right-sided renal artery stenosis, status post bilateral renal artery stents and angioplasty in July 2016 9. Hypertension 10. Significant pulmonary disease with multiple admissions for lung problems including acute respiratory failure secondary to recurrent flash pulmonary edema and hypertensive emergency 11. Significant cardiac disease as above with multiple admissions for cardiac problems 12. Former smoker 13. 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 First-degree AV block, LAD, and left bundle branch block 15. Lesion of ramus coronary artery 16. History of shock 17. Hyperkalemia 18. Carotid stenosis, status post carotid endarterectomy 19. COPD 20. Extensive atherosclerotic vascular disease including ectasia of the distal thoracic aorta measuring up to 3.7 cm in multiple segments of intraluminal curvilinear calcifications suggesting multi focal chronic dissection (CT abdomen and pelvis [facility] 10/04/2016). 21. Cardiomegaly (CT abdomen and pelvis [facility] 10/04/2016). 22. Small nonobstructing bilateral renal calculi (CT abdomen and pelvis [facility] 10/04/2016). 23. Hyperuricemia 24. S/p an otherwise uncomplicated exam under anesthesia at [facility] 10/04/16 with successful reduction of left inguinal incarcerated region without any obvious evident complication. Subjective: No major events or complaints; feels improved; no abd pain and under control with medications; no n/v/d; no sob or cp; + flatus; + BM; + activity Objective: Vitals: See below Exam: GENERAL: On exam, the patient was laying in bed and appeared to be comfortable and in no acute distress. ABDOMEN: Soft, nontender and nondistended. There are no peritoneal signs or guarding. L groin area with minimal to no discomfort with pressure, and no evidence of strangulated hernia. SKIN: Skin appears to be pink and feels warm to touch. NEUROLOGIC: Patient is awake, alert, and follows commands appropriately. Exam/Review of Systems Vital Signs Vitals Vital Signs Date Time Temp Pulse Resp B/P Pulse Ox O2 Delivery O2 Flow Rate FiO2 10/08/16 11:01 97.7 71 18 145/64 94 10/08/16 07:30 Nasal Cannula 2.0 10/08/16 03:50 21 Intake and Output 10/07/16 10/07/16 10/08/16 14:59 22:59 06:59 Intake Total 660 ml 500 ml Output Total 800 ml Balance 660 ml -300 ml Results Result Diagram: 10/08/16 0943 10/08/16 0943 BLESSING HINSON M.D. Oct 08, 2016 12:17
[2016-10-08] MEDS: LACTOBACILLUS RHAMNOSUS CAP PO SCH ×2 (12:57→20:27)
--- NOTE | 2016-10-08 15:58 | CONS ---
Date/Time of Note Date/Time of Note DATE: 10/08/16 TIME: 15:57 Consult Date/Type/Reason Admit Date/Time Oct 05, 2016 at 12:04 Initial Consult Date 10/05/16 Type of Consultation: Pulm Ordering Provider: SANJUANITA SPAULDING Subjective No SOB/CP Objective Vital Signs Date Time Temp Pulse Resp B/P Pulse Ox O2 Delivery O2 Flow Rate FiO2 10/08/16 12:47 74 10/08/16 11:01 97.7 18 145/64 94 10/08/16 07:30 Nasal Cannula 2.0 10/08/16 03:50 21 Intake and Output 10/07/16 10/07/16 10/08/16 15:00 23:00 07:00 Intake Total 660 ml 500 ml Output Total 800 ml Balance 660 ml -300 ml Exam HEENT: Neck supple; no JVD; no LAD CVS: RRR, S1 and S2 CHEST: Clear ABD: distended, NT, + BS EXT: No c/c/e Results/Medications Result Diagram: 10/08/1643 10/08/16 0943 Results 24 hrs Laboratory Tests Test 10/07/16 17:05 10/08/16 06:22 10/08/16 09:43 Bedside Glucose 121 108 White Blood Count 12.3 #H Red Blood Count 3.88 L Hemoglobin 10.6 L Hematocrit 33.4 L Mean Corpuscular Volume 86.1 Mean Corpuscular Hemoglobin 27.3 L Mean Corpuscular Hemoglobin Concent 31.7 L Red Cell Distribution Width 13.1 Platelet Count 395 Mean Platelet Volume 10.6 H Neutrophils % 70.4 Lymphocytes % 13.0 L Monocytes % 10.0 Eosinophils % 2.0 Basophils % 0.6 Nucleated Red Blood Cells % 0.0 Neutrophils # 8.7 H Lymphocytes # 1.6 Monocytes # 1.2 H Eosinophils # 0.2 Basophils # 0.1 Nucleated Red Blood Cells # 0.0 Sodium Level 138 Potassium Level 3.1 L Chloride Level 99 Carbon Dioxide Level 28 Anion Gap 14 Blood Urea Nitrogen 26 H Creatinine 1.72 H Glucose Level 102 Calcium Level 8.7 Medications Current Medications Ondansetron HCl (Zofran Inj) 4 mg Q6H PRN IV NAUSEA AND/OR VOMITING; Start 10/04 at 19:00 Acetaminophen (Tylenol Tab) 650 mg Q6H PRN PO PAIN LEVEL 1-3 OR FEVER; Start at 19:00 Acetaminophen/ Hydrocodone Bitart ([place] (5/325)) 1 tab Q6H PRN PO MODERATE PAIN LEVEL 4-6; Start 10/04/16 at 19:00 Morphine Sulfate (morphine) 2 mg Q4H PRN IV SEVERE PAIN LEVEL 7-10; Start at 19:00 Docusate Sodium (Colace) 100 mg Q12H PRN PO CONSTIPATION; Start 10/04/16 at 19: 00 Magnesium Hydroxide (Milk Of Mag) 30 ml DAILY PRN PO CONSTIPATION; Start at 19:00 Sodium Biphosphate/ Sodium Phosphate (Fleet Enema) [address] CONSTIPATION; Start 10/04/16 at 19:00 Hydralazine HCl (Apresoline) 10 mg Q6H PRN IV ELEVATED BLOOD PRESSURE Last administered on 10/08/16 06:48; Admin Dose 10 MG; Start 10/04/16 at 19:00 Nitroglycerin (Nitroglycerin (Sl Tab) 0.4 Mg) 1 tab Q5M PRN SL ANGINA; Start at 19:00 Eye Lubricant (Artificial Tears Oph) 1 drop TID BOTH EYES Last administered on 10/08/16 13:10; Admin Dose 1 DROP; Start 10/04/16 at 21:00 Amiodarone HCl (Cordarone) 100 mg DAILY PO Last administered on 10/08/16 08:13 ; Admin Dose 100 MG; Start 10/05/16 at 09:00 Aspirin (Aspirin) 81 mg DAILY PO Last administered on 10/08/16 08:10; Admin Dose 81 MG; Start 10/05/16 at 09:00 Atorvastatin Calcium (Lipitor) 80 mg QHS PO Last administered on 10/07/16 21:06 ; Admin Dose 80 MG; Start 10/04/16 at 21:00 Carvedilol (Coreg) 12.5 mg BID PO Last administered on 10/08/16 08:14; Admin Dose 12.5 MG; Start 10/04/16 at 21:00 EZETIMIBE (Zetia) 10 mg DAILY PO Last administered on 10/08/16 08:11; Admin Dose 10 MG; Start 10/05/16 at 09:00 Hydralazine HCl (Apresoline) 100 mg TID PO Last administered on 10/08/16 13:10 ; Admin Dose 100 MG; Start 10/04/16 at 21:00 Isosorbide Dinitrate (Isordil) 20 mg TID PO Last administered on 10/08/16 13:11 ; Admin Dose 20 MG; Start 10/04/16 at 21:00 Zolpidem Tartrate (Ambien) 10 mg QHS PRN PO INSOMNIA; Start 10/04/16 at 19:00 Miscellaneous Information 1 ea NOTE XX ; Start 10/04/16 at 19:30 Glucose (Glutose) 15 gm Q15M PRN PO DECREASED GLUCOSE; Start 10/04/16 at 19:30 Glucose (Glutose) 22.5 gm Q15M PRN PO DECREASED GLUCOSE; Start 10/04/16 at 19:30 Dextrose (D50w Syringe) 25 ml Q15M PRN IV DECREASED GLUCOSE; Start 10/04/16 at 19:30 Dextrose (D50w Syringe) 50 ml Q15M PRN IV DECREASED GLUCOSE; Start 10/04/16 at 19:30 Glucagon (Glucagen) 1 mg Q15M PRN IM DECREASED GLUCOSE; Start 10/04/16 at 19:30 Glucose 15 gm 15 gm Q15M PRN BUCCAL DECREASED GLUCOSE; Start 10/04/16 at 19:30 Piperacillin Sod/ Tazobactam Sod (Zosyn 2.25gm/ 50ml (Pmx)) 50 ml @ 100 mls/hr Q8 IVPB Last administered on 10/08/16 13:09; Admin Dose 100 MLS/HR; Start at 23:00 Sertraline HCl (Zoloft) 50 mg DAILY@17 PO Last administered on 10/07/16 18:04; Admin Dose 50 MG; Start 10/05/16 at 17:00 Clonazepam (Klonopin) 0.5 mg Q8H PRN PO ANXIETY Last administered on 10/07/16 23:00; Admin Dose 0.5 MG; Start 10/05/16 at 10:30 Furosemide (Lasix) 20 mg DAILY PO Last administered on 10/08/16 08:12; Admin Dose 20 MG; Start 10/08/16 at 09:00 Famotidine (Pepcid) 20 mg DAILY PO Last administered on 10/08/16 08:11; Admin Dose 20 MG; Start 10/08/16 at 09:00 Enoxaparin Sodium (Lovenox) 40 mg DAILY SC Last administered on 10/08/16 08:19 ; Admin Dose 40 MG; Start 10/07/16 at 19:00; Stop 10/08/16 at 22:00 Amlodipine Besylate (Norvasc) 10 mg DAILY PO Last administered on 10/08/16 08: 13; Admin Dose 10 MG; Start 10/08/16 at 09:00 Thiamine HCl (Vitamin B1) 100 mg DAILY PO Last administered on 10/08/16 11:08; Admin Dose 100 MG; Start 10/08/16 at 11:00 Lactobacillus Acidophilus/ Rhamnosus (Culturelle) 1 cap BID PO Last administered on 10/08/16 12:57; Admin Dose 1 CAP; Start 10/08/16 at 11:00 Potassium Chloride (Potassium Chloride Pwd/Soln) 40 meq DAILY PO Last administered on 10/08/16 11:08; Admin Dose 40 MEQ; Start 10/08/16 at 11:00 Assessment/Plan Additional Assessment/Plan IMP: Incarcerated inguinal hernia status post surgical repair. Doing extremely well from surgical standpoint. Stable COPD Stable coronary artery disease with ischemic cardiomyopathy Chronic kidney disease RECS: ICS BD's PT/OT titrate off O2 CLARICE COTE MD Oct 08, 2016 15:57
[2016-10-08] MEDS: SERTRALINE 50 MG TAB PO SCH (16:23)
[2016-10-08] MEDS: MAGNESIUM HYDROXIDE 30ML CUP PO PRN (20:19)
[2016-10-08] MEDS: ATORVASTATIN 80 MG TAB PO SCH (20:27)
[2016-10-08] MEDS: clonAZEPAM 0.5 MG TAB PO PRN (20:27)
[2016-10-08] MEDS: ZOLPIDEM 5 MG TAB PO PRN (23:16)
[2016-10-09] VITALS (12 sets, daily range): BP systolic 106–170; BP diastolic 59–84; PULSE 69–81; RESP 16–20
[2016-10-09] MEDS: PIPER-TAZO 2.25 GM (PMX) 50 ML IVPB SCH ×3 (06:44→21:24)
[2016-10-09 07:32] LABS: INR 1.16; PROTIME 14.8 Sec (12.2-14.2); PT RATIO 1.2
[2016-10-09 07:37] LABS: MAGNESIUM 2.2 mg/dl (1.7-2.5); PHOSPHORUS 2.3 mg/dl (2.5-4.9)
--- NOTE | 2016-10-09 08:15 | CONS ---
Date/Time of Note Date/Time of Note DATE: 10/09/16 TIME: 08:12 Assessment/Plan Assessment/Plan Chief Complaint/Hosp Course SBO with incarcerated inguinal hernia: Resolved after hernia reduction under anesthesia. This would be an intermediate risk surgery and he is at intermediate -high risk for surgery due to his prior cardiac issues though all is stable at this time.Plan for definitive repair tomorrow am h/o CAD s/p CABG/PCI: No e/o ischemia ICM (EF 20%): Mild CHF over the weekend, now resolved Recurrent pulm edema: from HTN and renal artery stenosis as well as anxiety. No recurrence >1 month VT s/p ICD PVD s/p bilateral renal artery stenting and CEA CKD (baseline Cr mid 2s): currently better than baseline HTN: remains uncontrolled. Possible component of anxiety again but would like better BP control to avoid flash pulm edema -ok to proceed with surgery as planned as pt is medically optimized at this time -no need for heparin drip pre-op from a cardiac perspective. ASA is adequate for his stent -increase to coreg 25 mg BID -continue amlodipine 10mg -lasix 20mg PO daily -ok to continue to hold plavix until after surgery as >6 months post PCI ( restart when ok post-op) -continue ASA ivana-op -hydralazine 100mg TID -isordil 20mg TID Problems: Consultation Date/Type/Reason Admit Date/Time Oct 05, 2016 at 12:04 Initial Consult Date 10/05/16 Type of Consultation: Cardiology Referring Provider: SANJUANITA SPAULDING 24 HR Interval Summary Free Text/Dictation SBP elevated all day. He admits to being nervous all day. Had SOB yesterday but none this am. Feels better overall. Exam/Review of Systems Vital Signs Vitals Vital Signs Date Time Temp Pulse Resp B/P Pulse Ox O2 Delivery O2 Flow Rate FiO2 10/09/16 07:36 98.1 78 16 157/74 96 10/08/16 07:30 Nasal Cannula 2.0 10/08/16 03:50 21 Intake and Output 10/08/16 10/08/16 10/09/16 14:59 22:59 06:59 Intake Total 770 ml 400 ml Output Total 500 ml Balance 270 ml 400 ml Exam Constitutional: alert, oriented Psych: nl mood/affect, no complaints Head: atraumatic, normocephalic Neck: No jvd Respiratory: clear to auscultation, No crackles/rales Cardiovascular: regular rate and rhythm, No edema Gastrointestinal: non-tender, soft Neurological: nl mental status, nl speech Results Result Diagram: 10/08/1643 10/08/16 0943 Results 24 hrs Laboratory Tests Test 10/08/16 09:43 10/09/16 06:31 10/09/16 06:35 White Blood Count 12.3 #H Red Blood Count 3.88 L Hemoglobin 10.6 L Hematocrit 33.4 L Mean Corpuscular Volume 86.1 Mean Corpuscular Hemoglobin 27.3 L Mean Corpuscular Hemoglobin Concent 31.7 L Red Cell Distribution Width 13.1 Platelet Count 395 Mean Platelet Volume 10.6 H Neutrophils % 70.4 Lymphocytes % 13.0 L Monocytes % 10.0 Eosinophils % 2.0 Basophils % 0.6 Nucleated Red Blood Cells % 0.0 Neutrophils # 8.7 H Lymphocytes # 1.6 Monocytes # 1.2 H Eosinophils # 0.2 Basophils # 0.1 Nucleated Red Blood Cells # 0.0 Sodium Level 138 Potassium Level 3.1 L Chloride Level 99 Carbon Dioxide Level 28 Anion Gap 14 Blood Urea Nitrogen 26 H Creatinine 1.72 H Glucose Level 102 Calcium Level 8.7 Prothrombin Time 14.8 H Prothrombin Time Ratio 1.2 INR International Normalized Ratio 1.16 Phosphorus Level 2.3 L Magnesium Level 2.2 Medications Medications Current Medications Ondansetron HCl (Zofran Inj) 4 mg Q6H PRN IV NAUSEA AND/OR VOMITING; Start 10/04 at 19:00 Acetaminophen (Tylenol Tab) 650 mg Q6H PRN PO PAIN LEVEL 1-3 OR FEVER; Start at 19:00 Acetaminophen/ Hydrocodone Bitart ([place] (5/325)) 1 tab Q6H PRN PO MODERATE PAIN LEVEL 4-6; Start 10/04/16 at 19:00 Morphine Sulfate (morphine) 2 mg Q4H PRN IV SEVERE PAIN LEVEL 7-10; Start at 19:00 Docusate Sodium (Colace) 100 mg Q12H PRN PO CONSTIPATION; Start 10/04/16 at 19: 00 Magnesium Hydroxide (Milk Of Mag) 30 ml DAILY PRN PO CONSTIPATION Last administered on 10/08/16 20:19; Admin Dose 30 ML; Start 10/04/16 at 19:00 Sodium Biphosphate/ Sodium Phosphate (Fleet Enema) 133 ml DAILY PRN [place] CONSTIPATION; Start 10/04/16 at 19:00 Hydralazine HCl (Apresoline) 10 mg Q6H PRN IV ELEVATED BLOOD PRESSURE Last administered on 10/08/16 06:48; Admin Dose 10 MG; Start 10/04/16 at 19:00 Nitroglycerin (Nitroglycerin (Sl Tab) 0.4 Mg) 1 tab Q5M PRN SL ANGINA; Start at 19:00 Eye Lubricant (Artificial Tears Oph) 1 drop TID BOTH EYES Last administered on 10/08/16 20:27; Admin Dose 1 DROP; Start 10/04/16 at 21:00 Amiodarone HCl (Cordarone) 100 mg DAILY PO Last administered on 10/08/16 08:13 ; Admin Dose 100 MG; Start 10/05/16 at 09:00 Aspirin (Aspirin) 81 mg DAILY PO Last administered on 10/08/16 08:10; Admin Dose 81 MG; Start 10/05/16 at 09:00 Atorvastatin Calcium (Lipitor) 80 mg QHS PO Last administered on 10/08/16 20:27 ; Admin Dose 80 MG; Start 10/04/16 at 21:00 EZETIMIBE (Zetia) 10 mg DAILY PO Last administered on 10/08/16 08:11; Admin Dose 10 MG; Start 10/05/16 at 09:00 Hydralazine HCl (Apresoline) 100 mg TID PO Last administered on 10/08/16 20:26 ; Admin Dose 100 MG; Start 10/04/16 at 21:00 Isosorbide Dinitrate (Isordil) 20 mg TID PO Last administered on 10/08/16 20:27 ; Admin Dose 20 MG; Start 10/04/16 at 21:00 Zolpidem Tartrate (Ambien) 10 mg QHS PRN PO INSOMNIA Last administered on 23:16; Admin Dose 10 MG; Start 10/04/16 at 19:00 Miscellaneous Information 1 ea NOTE XX ; Start 10/04/16 at 19:30 Glucose (Glutose) 15 gm Q15M PRN PO DECREASED GLUCOSE; Start 10/04/16 at 19:30 Glucose (Glutose) 22.5 gm Q15M PRN PO DECREASED GLUCOSE; Start 10/04/16 at 19:30 Dextrose (D50w Syringe) 25 ml Q15M PRN IV DECREASED GLUCOSE; Start 10/04/16 at 19:30 Dextrose (D50w Syringe) 50 ml Q15M PRN IV DECREASED GLUCOSE; Start 10/04/16 at 19:30 Glucagon (Glucagen) 1 mg Q15M PRN IM DECREASED GLUCOSE; Start 10/04/16 at 19:30 Glucose 15 gm 15 gm Q15M PRN BUCCAL DECREASED GLUCOSE; Start 10/04/16 at 19:30 Piperacillin Sod/ Tazobactam Sod (Zosyn 2.25gm/ 50ml (Pmx)) 50 ml @ 100 mls/hr Q8 IVPB Last administered on 10/09/16 06:44; Admin Dose 100 MLS/HR; Start 10/04 at 23:00 Sertraline HCl (Zoloft) 50 mg DAILY@17 PO Last administered on 10/08/16 16:23; Admin Dose 50 MG; Start 10/05/16 at 17:00 Clonazepam (Klonopin) 0.5 mg Q8H PRN PO ANXIETY Last administered on 10/08/16 20:27; Admin Dose 0.5 MG; Start 10/05/16 at 10:30 Furosemide (Lasix) 20 mg DAILY PO Last administered on 10/08/16 08:12; Admin Dose 20 MG; Start 10/08/16 at 09:00 Famotidine (Pepcid) 20 mg DAILY PO Last administered on 10/08/16 08:11; Admin Dose 20 MG; Start 10/08/16 at 09:00 Amlodipine Besylate (Norvasc) 10 mg DAILY PO Last administered on 10/08/16 08: 13; Admin Dose 10 MG; Start 10/08/16 at 09:00 Thiamine HCl (Vitamin B1) 100 mg DAILY PO Last administered on 10/08/16 11:08; Admin Dose 100 MG; Start 10/08/16 at 11:00 Lactobacillus Acidophilus/ Rhamnosus (Culturelle) 1 cap BID PO Last administered on 10/08/16 20:27; Admin Dose 1 CAP; Start 10/08/16 at 11:00 Potassium Chloride (Potassium Chloride Pwd/Soln) 40 meq DAILY PO Last administered on 10/08/16t 11:08; Admin Dose 40 MEQ; Start 10/08/16 at 11:00 Carvedilol (Coreg) 25 mg BID PO ; Start 10/09/16 at 07:59 EMILY TREVIÑO Oct 09, 2016 08:14
[2016-10-09 08:45] LABS: ADD SCAN DIFF NO
[2016-10-09 08:48] LABS: BASOPHIL # 0.1 10^3/ul (0.0-0.1); BASOPHILS % 0.6 % (0.0-2.0); EOSINOPHILS # 0.3 10^3/ul (0.0-0.5); EOSINOPHILS % 2.5 % (0.0-7.0); HEMATOCRIT 33.4 % (42.0-52.0); HEMOGLOBIN 10.7 g/dl (14.0-18.0); LYMPHOCYTES # 2.2 10^3/ul (0.8-2.9); LYMPHOCYTES % 18.3 % (15.0-51.0); MEAN CORPUSCULAR HEMOGLOBIN 27.5 pg (29.0-33.0); MEAN CORPUSCULAR VOLUME 85.9 fl (82.0-101.0); MEAN PLATELET VOLUME 11.4 fl (7.4-10.4); MONOCYTE # 1.5 10^3/ul (0.3-0.9); MONOCYTES % 12.4 % (0.0-11.0); NEUTROPHIL # 7.3 10^3/ul (1.6-7.5); NEUTROPHILS % 61.7 % (39.0-77.0); PLATELET COUNT 403 10^3/UL (140-415); RED BLOOD COUNT 3.89 10^6/ul (4.70-6.10); RED CELL DISTRIBUTION WIDTH 13.1 % (11.5-14.5); WHITE BLOOD COUNT 11.8 10^3/ul (4.8-10.8)
[2016-10-09] MEDS: ARTIFICIAL TEARS 15 ML OPH BOTH EYES SCH ×3 (09:00→21:24)
[2016-10-09 09:03] LABS: CALCIUM 8.9 mg/dl (8.4-10.2); CREATININE 1.57 mg/dl (0.61-1.24); POTASSIUM 3.3 mmol/L (3.5-5.1)
[2016-10-09] MEDS: THIAMINE 100 MG TAB PO SCH (09:25)
[2016-10-09] MEDS: POTASSIUM CHLORIDE 20 MEQ POWDER FOR ORAL SOLN PO SCH (09:25)
[2016-10-09] MEDS: ASPIRIN 81 MG TAB PO SCH (09:25)
[2016-10-09] MEDS: AMLODIPINE 5 MG TAB PO SCH (09:26)
[2016-10-09] MEDS: LACTOBACILLUS RHAMNOSUS CAP PO SCH ×2 (09:26→21:25)
[2016-10-09] MEDS: EZETIMIBE 10 MG TAB PO SCH (09:26)
[2016-10-09] MEDS: FUROSEMIDE 20 MG TAB PO SCH (09:26)
[2016-10-09] MEDS: ISOSORBIDE DINITRATE 20 MG TAB PO SCH ×3 (09:27→21:25)
[2016-10-09] MEDS: FAMOTIDINE 20 MG TAB PO SCH (09:27)
[2016-10-09] MEDS: AMIODARONE 200 MG TAB PO SCH (09:28)
--- NOTE | 2016-10-09 11:00 | PN ---
Date/Time of Note Date/Time of Note DATE: 10/09/16 TIME: 10:58 Assessment/Plan Lines/Catheters IV Catheter Type (from [facility]): Saline Lock [place] in Place (from [facility]): No Assessment/Plan Assessment/Plan [facility] Progress Note Date of Service: 10/09/16 Today's Impression & Plan: Overall remains stable and improving. No indication for acute surgical intervention. SBO seems to have resolved. Awaiting L inguinal hernia repair, scheduled for Sun am at 7:30. Answered all questions. With above assessment, I've recommended the following for today: 1. Continue current cares 2. Regular diet 3. Anticoagulation per cardiology; can continue aspirin throughout; if on heparin, please hold the night before surgery (currently Sunday night) 4. Labs in am 5. Keep inhouse Thank you again for your great care of this very pleasant patient and wonderful family. If there are any questions, please feel free to call me at [phone]. Disclaimer: Inadvertent spelling or grammatical errors are likely due to EHR/ dictation software use and do not reflect on the overall quality of patient care. Updated Clinical Summary: A very-pleasant 65-year-old gentleman with multiple comorbid issues including severe cardiopulmonary disease, presenting with a very difficult issue of small bowel obstruction in the setting of incarcerated left inguinal hernia containing small bowel. Comorbidities: 1. Small bowel obstruction with incarcerated left inguinal hernia 2. Coronary artery disease, status post CABG October 2015 with subsequent graft closure requiring PTCA with stenting 3. Ischemic cardiomyopathy: Ejection fraction approximately 20-25% 4. Status post ICD for secondary prevention 5. Severe atherosclerotic vascular disease 6. Peripheral vascular disease 7. Chronic kidney disease with renal insufficiency (creatinine between 2-1/2-3- 1/2) 8. Right-sided renal artery stenosis, status post bilateral renal artery stents and angioplasty in July 2016 9. Hypertension 10. Significant pulmonary disease with multiple admissions for lung problems including acute respiratory failure secondary to recurrent flash pulmonary edema and hypertensive emergency 11. Significant cardiac disease as above with multiple admissions for cardiac problems 12. Former smoker 13. 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 First-degree AV block, LAD, and left bundle branch block 15. Lesion of ramus coronary artery 16. History of shock 17. Hyperkalemia 18. Carotid stenosis, status post carotid endarterectomy 19. COPD 20. Extensive atherosclerotic vascular disease including ectasia of the distal thoracic aorta measuring up to 3.7 cm in multiple segments of intraluminal curvilinear calcifications suggesting multi focal chronic dissection (CT abdomen and pelvis [facility] 10/04/2016). 21. Cardiomegaly (CT abdomen and pelvis [facility] 10/04/2016). 22. Small nonobstructing bilateral renal calculi (CT abdomen and pelvis [facility] 10/04/2016). 23. Hyperuricemia 24. S/p an otherwise uncomplicated exam under anesthesia at [facility] 10/04/16 with successful reduction of left inguinal incarcerated region without any obvious evident complication. Subjective: No major events or complaints; feels improved; no abd pain and under control with medications; no n/v/d; no sob or cp; + flatus; + BM; + activity Objective: Vitals: See below Exam: GENERAL: On exam, the patient was laying in bed and appeared to be comfortable and in no acute distress. ABDOMEN: Soft, nontender and nondistended. There are no peritoneal signs or guarding. L groin area with minimal to no discomfort with pressure, and no evidence of strangulated hernia. SKIN: Skin appears to be pink and feels warm to touch. NEUROLOGIC: Patient is awake, alert, and follows commands appropriately. Exam/Review of Systems Vital Signs Vitals Vital Signs Date Time Temp Pulse Resp B/P Pulse Ox O2 Delivery O2 Flow Rate FiO2 10/09/16 08:16 81 10/09/16 07:36 98.1 16 157/74 96 10/08/16 07:30 Nasal Cannula 2.0 10/08/16 03:50 21 Intake and Output 10/08/16 10/08/16 10/09/16 15:00 23:00 07:00 Intake Total 770 ml 400 ml Output Total 500 ml Balance 270 ml 400 ml Results Result Diagram: 10/09/16 0635 10/09/16 0635 BLESSING HINSON M.D. Oct 09, 2016 11:00
--- NOTE | 2016-10-09 14:59 | PN ---
Date/Time of Note Date/Time of Note DATE: 10/09/16 TIME: 14:52 Assessment/Plan VTE Prophylaxis VTE Prophylaxis Intervention: LMWH Lines/Catheters IV Catheter Type (from [facility]): Saline Lock Urinary Cath still in place: No Assessment/Plan Assessment/Plan 1. Small bowel obstruction secondary to #2: Resolved patient was tolerating a diet but is n.p.o. for surgery today 2. Incarcerated inguinal hernia status post reduction under anesthesia, plan for repair today 3. Hypertension with fluctuating control 4. History of CHF and recurrent flash pulmonary edema currently compensated 5. 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 History of carotid artery stenosis status post CEA 7. History of bilateral renal stenosis status post stents 8. Chronic kidney disease stage IV: Stable without acute abnormality 9. Chronic lung mass for which patient has refused workup and intervention repeatedly 10. Chronic cardiomyopathy and hx of VT likely ischemic status post AICD 11. JOEY contributing to #4: stable Plan: * Surgical repair of left-sided inguinal hernia today * Antihypertensives being titrated by cardiology /continue to hold Plavix * continue all other supportive care and pain control * Resume care postoperatively. Subjective 24 Hr Interval Summary Free Text/Dictation no complaints spoke with patient and planned for surgical repair of hernia today Exam/Review of Systems Vital Signs Vitals Vital Signs Date Time Temp Pulse Resp B/P Pulse Ox O2 Delivery O2 Flow Rate FiO2 10/09/16 12:11 73 10/09/16 11:35 98.4 16 124/61 95 10/08/16 07:30 Nasal Cannula 2.0 10/08/16 03:50 21 Intake and Output 10/08/16 10/08/16 10/09/16 15:00 23:00 07:00 Intake Total 770 ml 400 ml Output Total 500 ml Balance 270 ml 400 ml Exam Constitutional: alert, oriented Head: atraumatic, normocephalic Neck: non-tender, supple Respiratory: clear to auscultation Cardiovascular: regular rate and rhythm Gastrointestinal: S/ NT / ND / +BS / no obvious hernia Extremities: no edema, good radial pulses Results Result Diagram: 10/09/16 0635 10/09/16 0635 Results 24 hrs Laboratory Tests Test 10/09/16 06:31 10/09/16 06:35 Prothrombin Time 14.8 H Prothrombin Time Ratio 1.2 INR International Normalized Ratio 1.16 White Blood Count 11.8 H Red Blood Count 3.89 L Hemoglobin 10.7 L Hematocrit 33.4 L Mean Corpuscular Volume 85.9 Mean Corpuscular Hemoglobin 27.5 L Mean Corpuscular Hemoglobin Concent 32.0 Red Cell Distribution Width 13.1 Platelet Count 403 Mean Platelet Volume 11.4 H Neutrophils % 61.7 Lymphocytes % 18.3 Monocytes % 12.4 H Eosinophils % 2.5 Basophils % 0.6 Nucleated Red Blood Cells % 0.0 Neutrophils # 7.3 Lymphocytes # 2.2 Monocytes # 1.5 H Eosinophils # 0.3 Basophils # 0.1 Nucleated Red Blood Cells # 0.0 Sodium Level 139 Potassium Level 3.3 L Chloride Level 101 Carbon Dioxide Level 29 Anion Gap 12 Blood Urea Nitrogen 20 Creatinine 1.57 H Glucose Level 95 Calcium Level 8.9 Phosphorus Level 2.3 L Magnesium Level 2.2 Medications Medications Current Medications Ondansetron HCl (Zofran Inj) 4 mg Q6H PRN IV NAUSEA AND/OR VOMITING; Start 10/04 at 19:00 Acetaminophen (Tylenol Tab) 650 mg Q6H PRN PO PAIN LEVEL 1-3 OR FEVER; Start at 19:00 Acetaminophen/ Hydrocodone Bitart ([employer] (5/325)) 1 tab Q6H PRN PO MODERATE PAIN LEVEL 4-6; Start 10/04/16 at 19:00 Morphine Sulfate (morphine) 2 mg Q4H PRN IV SEVERE PAIN LEVEL 7-10; Start at 19:00 Docusate Sodium (Colace) 100 mg Q12H PRN PO CONSTIPATION; Start 10/04/16 at 19: 00 Magnesium Hydroxide (Milk Of Mag) 30 ml DAILY PRN PO CONSTIPATION Last administered on 10/08/16 20:19; Admin Dose 30 ML; Start 10/04/16 at 19:00 Sodium Biphosphate/ Sodium Phosphate (Fleet Enema) 133 ml DAILY PRN [place] CONSTIPATION; Start 10/04/16 at 19:00 Hydralazine HCl (Apresoline) 10 mg Q6H PRN IV ELEVATED BLOOD PRESSURE Last administered on 10/08/16 06:48; Admin Dose 10 MG; Start 10/04/16 at 19:00 Nitroglycerin (Nitroglycerin (Sl Tab) 0.4 Mg) 1 tab Q5M PRN SL ANGINA; Start at 19:00 Eye Lubricant (Artificial Tears Oph) 1 drop TID BOTH EYES Last administered on 10/08/16 20:27; Admin Dose 1 DROP; Start 10/04/16 at 21:00 Amiodarone HCl (Cordarone) 100 mg DAILY PO Last administered on 10/09/16 09:28 ; Admin Dose 100 MG; Start 10/05/16 at 09:00 Aspirin (Aspirin) 81 mg DAILY PO Last administered on 10/09/16 09:25; Admin Dose 81 MG; Start 10/05/16 at 09:00 Atorvastatin Calcium (Lipitor) 80 mg QHS PO Last administered on 10/08/16 20:27 ; Admin Dose 80 MG; Start 10/04/16 at 21:00 EZETIMIBE (Zetia) 10 mg DAILY PO Last administered on 10/09/16 09:26; Admin Dose 10 MG; Start 10/05/16 at 09:00 Hydralazine HCl (Apresoline) 100 mg TID PO Last administered on 10/09/16 14:38 ; Admin Dose 100 MG; Start 10/04/16 at 21:00 Isosorbide Dinitrate (Isordil) 20 mg TID PO Last administered on 10/09/16 14: 38; Admin Dose 20 MG; Start 10/04/16 at 21:00 Zolpidem Tartrate (Ambien) 10 mg QHS PRN PO INSOMNIA Last administered on 23:16; Admin Dose 10 MG; Start 10/04/16 at 19:00 Miscellaneous Information 1 ea NOTE XX ; Start 10/04/16 at 19:30 Glucose (Glutose) 15 gm Q15M PRN PO DECREASED GLUCOSE; Start 10/04/16 at 19:30 Glucose (Glutose) 22.5 gm Q15M PRN PO DECREASED GLUCOSE; Start 10/04/16 at 19:30 Dextrose (D50w Syringe) 25 ml Q15M PRN IV DECREASED GLUCOSE; Start 10/04/16 at 19:30 Dextrose (D50w Syringe) 50 ml Q15M PRN IV DECREASED GLUCOSE; Start 10/04/16 at 19:30 Glucagon (Glucagen) 1 mg Q15M PRN IM DECREASED GLUCOSE; Start 10/04/16 at 19:30 Glucose 15 gm 15 gm Q15M PRN BUCCAL DECREASED GLUCOSE; Start 10/04/16 at 19:30 Piperacillin Sod/ Tazobactam Sod (Zosyn 2.25gm/ 50ml (Pmx)) 50 ml @ 100 mls/hr Q8 IVPB Last administered on 10/09/16 14:41; Admin Dose 100 MLS/HR; Start 10/04 at 23:00 Sertraline HCl (Zoloft) 50 mg DAILY@17 PO Last administered on 10/08/16 16:23; Admin Dose 50 MG; Start 10/05/16 at 17:00 Clonazepam (Klonopin) 0.5 mg Q8H PRN PO ANXIETY Last administered on 10/08/16 20:27; Admin Dose 0.5 MG; Start 10/05/16 at 10:30 Furosemide (Lasix) 20 mg DAILY PO Last administered on 10/09/16 09:26; Admin Dose 20 MG; Start 10/08/16 at 09:00 Famotidine (Pepcid) 20 mg DAILY PO Last administered on 10/09/16 09:27; Admin Dose 20 MG; Start 10/08/16 at 09:00 Amlodipine Besylate (Norvasc) 10 mg DAILY PO Last administered on 10/09/16 09: 26; Admin Dose 10 MG; Start 10/08/16 at 09:00 Thiamine HCl (Vitamin B1) 100 mg DAILY PO Last administered on 10/09/16 09:25 ; Admin Dose 100 MG; Start 10/08/16 at 11:00 Lactobacillus Acidophilus/ Rhamnosus (Culturelle) 1 cap BID PO Last administered on 10/09/16 09:26; Admin Dose 1 CAP; Start 10/08/16 at 11:00 Potassium Chloride (Potassium Chloride Pwd/Soln) 40 meq DAILY PO Last administered on 10/09/16 09:25; Admin Dose 40 MEQ; Start 10/08/16 at 11:00 Carvedilol (Coreg) 25 mg BID PO Last administered on 10/09/16 09:25; Admin Dose 25 MG; Start 10/09/16 at 07:59 SANJUANITA SPAULDING Oct 09, 2016 14:59
--- NOTE | 2016-10-09 15:13 | CONS ---
Date/Time of Note Date/Time of Note DATE: 10/09/16 TIME: 15:12 Consult Date/Type/Reason Admit Date/Time Oct 05, 2016 at 12:04 Initial Consult Date 10/05/16 Type of Consultation: Pulmonary Ordering Provider: SANJUANITA SPAULDING Subjective Patient comfortable this morning no new events Objective Vital Signs Date Time Temp Pulse Resp B/P Pulse Ox O2 Delivery O2 Flow Rate FiO2 10/09/16 12:11 73 10/09/16 11:35 98.4 16 124/61 95 10/08/16 07:30 Nasal Cannula 2.0 10/08/16 03:50 21 Intake and Output 10/08/16 10/08/16 10/09/16 14:59 22:59 06:59 Intake Total 770 ml 400 ml Output Total 500 ml Balance 270 ml 400 ml Exam GENERAL: VITAL SIGNS: per chart NECK: Supple. No JVD or lymphadenopathy. CARDIAC EXAM: S1, S2. No added sounds or murmurs. CHEST: clear bilaterally, No added sounds, rales or wheezes ABDOMEN: Soft, nontender. No guarding or rebound. EXTREMITIES: No cyanosis, clubbing or edema. NEUROLOGIC: Generalized weakness. No focal deficits. Results/Medications Result Diagram: 10/09/16 0635 10/09/16 0635 Results 24 hrs Laboratory Tests Test 10/09/16 06:31 10/09/16 06:35 Prothrombin Time 14.8 H Prothrombin Time Ratio 1.2 INR International Normalized Ratio 1.16 White Blood Count 11.8 H Red Blood Count 3.89 L Hemoglobin 10.7 L Hematocrit 33.4 L Mean Corpuscular Volume 85.9 Mean Corpuscular Hemoglobin 27.5 L Mean Corpuscular Hemoglobin Concent 32.0 Red Cell Distribution Width 13.1 Platelet Count 403 Mean Platelet Volume 11.4 H Neutrophils % 61.7 Lymphocytes % 18.3 Monocytes % 12.4 H Eosinophils % 2.5 Basophils % 0.6 Nucleated Red Blood Cells % 0.0 Neutrophils # 7.3 Lymphocytes # 2.2 Monocytes # 1.5 H Eosinophils # 0.3 Basophils # 0.1 Nucleated Red Blood Cells # 0.0 Sodium Level 139 Potassium Level 3.3 L Chloride Level 101 Carbon Dioxide Level 29 Anion Gap 12 Blood Urea Nitrogen 20 Creatinine 1.57 H Glucose Level 95 Calcium Level 8.9 Phosphorus Level 2.3 L Magnesium Level 2.2 Medications Current Medications Ondansetron HCl (Zofran Inj) 4 mg Q6H PRN IV NAUSEA AND/OR VOMITING; Start 10/04 at 19:00 Acetaminophen (Tylenol Tab) 650 mg Q6H PRN PO PAIN LEVEL 1-3 OR FEVER; Start at 19:00 Acetaminophen/ Hydrocodone Bitart ([place] (5/325)) 1 tab Q6H PRN PO MODERATE PAIN LEVEL 4-6; Start 10/04/16 at 19:00 Morphine Sulfate (morphine) 2 mg Q4H PRN IV SEVERE PAIN LEVEL 7-10; Start at 19:00 Docusate Sodium (Colace) 100 mg Q12H PRN PO CONSTIPATION; Start 10/04/16 at 19: 00 Magnesium Hydroxide (Milk Of Mag) 30 ml DAILY PRN PO CONSTIPATION Last administered on 10/08/16 20:19; Admin Dose 30 ML; Start 10/04/16 at 19:00 Sodium Biphosphate/ Sodium Phosphate (Fleet Enema) 133 ml DAILY PRN [place] CONSTIPATION; Start 10/04/16 at 19:00 Hydralazine HCl (Apresoline) 10 mg Q6H PRN IV ELEVATED BLOOD PRESSURE Last administered on 10/08/16 06:48; Admin Dose 10 MG; Start 10/04/16 at 19:00 Nitroglycerin (Nitroglycerin (Sl Tab) 0.4 Mg) 1 tab Q5M PRN SL ANGINA; Start at 19:00 Eye Lubricant (Artificial Tears Oph) 1 drop TID BOTH EYES Last administered on 10/08/16 20:27; Admin Dose 1 DROP; Start 10/04/16 at 21:00 Amiodarone HCl (Cordarone) 100 mg DAILY PO Last administered on 10/09/16 09:28 ; Admin Dose 100 MG; Start 10/05/16 at 09:00 Aspirin (Aspirin) 81 mg DAILY PO Last administered on 10/09/16 09:25; Admin Dose 81 MG; Start 10/05/16 at 09:00 Atorvastatin Calcium (Lipitor) 80 mg QHS PO Last administered on 10/08/16 20:27 ; Admin Dose 80 MG; Start 10/04/16 at 21:00 EZETIMIBE (Zetia) 10 mg DAILY PO Last administered on 10/09/16 09:26; Admin Dose 10 MG; Start 10/05/16 at 09:00 Hydralazine HCl (Apresoline) 100 mg TID PO Last administered on 10/09/16 14:38 ; Admin Dose 100 MG; Start 10/04/16 at 21:00 Isosorbide Dinitrate (Isordil) 20 mg TID PO Last administered on 10/09/16 14: 38; Admin Dose 20 MG; Start 10/04/16 at 21:00 Zolpidem Tartrate (Ambien) 10 mg QHS PRN PO INSOMNIA Last administered on 23:16; Admin Dose 10 MG; Start 10/04/16 at 19:00 Miscellaneous Information 1 ea NOTE XX ; Start 10/04/16 at 19:30 Glucose (Glutose) 15 gm Q15M PRN PO DECREASED GLUCOSE; Start 10/04/16 at 19:30 Glucose (Glutose) 22.5 gm Q15M PRN PO DECREASED GLUCOSE; Start 10/04/16 at 19:30 Dextrose (D50w Syringe) 25 ml Q15M PRN IV DECREASED GLUCOSE; Start 10/04/16 at 19:30 Dextrose (D50w Syringe) 50 ml Q15M PRN IV DECREASED GLUCOSE; Start 10/04/16 at 19:30 Glucagon (Glucagen) 1 mg Q15M PRN IM DECREASED GLUCOSE; Start 10/04/16 at 19:30 Glucose 15 gm 15 gm Q15M PRN BUCCAL DECREASED GLUCOSE; Start 10/04/16 at 19:30 Piperacillin Sod/ Tazobactam Sod (Zosyn 2.25gm/ 50ml (Pmx)) 50 ml @ 100 mls/hr Q8 IVPB Last administered on 10/09/16 14:41; Admin Dose 100 MLS/HR; Start 10/04 at 23:00 Sertraline HCl (Zoloft) 50 mg DAILY@17 PO Last administered on 10/08/16 16:23; Admin Dose 50 MG; Start 10/05/16 at 17:00 Clonazepam (Klonopin) 0.5 mg Q8H PRN PO ANXIETY Last administered on 10/08/16 20:27; Admin Dose 0.5 MG; Start 10/05/16 at 10:30 Furosemide (Lasix) 20 mg DAILY PO Last administered on 10/09/16 09:26; Admin Dose 20 MG; Start 10/08/16 at 09:00 Famotidine (Pepcid) 20 mg DAILY PO Last administered on 10/09/16 09:27; Admin Dose 20 MG; Start 10/08/16 at 09:00 Amlodipine Besylate (Norvasc) 10 mg DAILY PO Last administered on 10/09/16 09: 26; Admin Dose 10 MG; Start 10/08/16 at 09:00 Thiamine HCl (Vitamin B1) 100 mg DAILY PO Last administered on 10/09/16 09:25 ; Admin Dose 100 MG; Start 10/08/16 at 11:00 Lactobacillus Acidophilus/ Rhamnosus (Culturelle) 1 cap BID PO Last administered on 10/09/16 09:26; Admin Dose 1 CAP; Start 10/08/16 at 11:00 Potassium Chloride (Potassium Chloride Pwd/Soln) 40 meq DAILY PO Last administered on 10/09/16 09:25; Admin Dose 40 MEQ; Start 10/08/16 at 11:00 Carvedilol (Coreg) 25 mg BID PO Last administered on 10/09/16 09:25; Admin Dose 25 MG; Start 10/09/16 at 07:59 Assessment/Plan Chief Complaint/Hosp Course IMP: Incarcerated inguinal hernia status post surgical repair. Doing extremely well from surgical standpoint. Stable COPD Stable coronary artery disease with ischemic cardiomyopathy Chronic kidney disease RECS: ICS BD's PT/OT titrate off O2 Discharge planning Problems: MARY BARKER MD, [facility] Oct 09, 2016 15:12
[2016-10-09] MEDS: SERTRALINE 50 MG TAB PO SCH (17:38)
[2016-10-09] MEDS: ATORVASTATIN 80 MG TAB PO SCH (21:24)
[2016-10-09] MEDS: clonAZEPAM 0.5 MG TAB PO PRN (22:07)
[2016-10-10] VITALS (22 sets, daily range): BP systolic 120–169; BP diastolic 57–90; PULSE 60–103; RESP 12–18
[2016-10-10] MEDS: ZOLPIDEM 5 MG TAB PO PRN (01:59)
[2016-10-10] MEDS: PIPER-TAZO 2.25 GM (PMX) 50 ML IVPB SCH (06:04)
[2016-10-10] MEDS ORDERED: CEFAZOLIN 1 GM INJ ONE (07:00)
[2016-10-10] MEDS ORDERED: GLYCOPYRROLATE 0.4 MG INJ ONE (07:00)
[2016-10-10] MEDS ORDERED: NEOSTIGMINE 3 MG/3 ML SYRINGE ONE (07:00)
--- NOTE | 2016-10-10 08:01 | CONS ---
Date/Time of Note Date/Time of Note DATE: 10/10/16 TIME: 07:59 Assessment/Plan Assessment/Plan Chief Complaint/Hosp Course SBO with incarcerated inguinal hernia: Resolved after hernia reduction under anesthesia. This would be an intermediate risk surgery and he is at intermediate -high risk for surgery due to his prior cardiac issues though all is stable at this time. h/o CAD s/p CABG/PCI: No e/o ischemia ICM (EF 20%): Mild CHF over the weekend, now resolved Recurrent pulm edema: from HTN and renal artery stenosis as well as anxiety. No recurrence >1 month VT s/p ICD PVD s/p bilateral renal artery stenting and CEA CKD (baseline Cr mid 2s): currently better than baseline HTN: difficult to control despite increase in meds. Certainly a component of anxiety -ok to proceed with surgery as planned as pt is medically optimized at this time -coreg 25 mg BID -continue amlodipine 10mg -lasix 20mg PO daily -ok to continue to hold plavix until after surgery as >6 months post PCI ( restart when ok post-op) -continue ASA ivana-op -hydralazine 100mg TID -isordil 20mg TID Problems: Consultation Date/Type/Reason Admit Date/Time Oct 05, 2016 at 12:04 Initial Consult Date 10/05/16 Type of Consultation: Cardiology Referring Provider: SANJUANITA SPAULDING 24 HR Interval Summary Free Text/Dictation BP was good in the afternoon. High again at night despite increase in meds. He is currently walking around the hallway without any issues. Surgery scheduled for noon. Exam/Review of Systems Vital Signs Vitals Vital Signs Date Time Temp Pulse Resp B/P Pulse Ox O2 Delivery O2 Flow Rate FiO2 10/10/16 07:11 98.9 81 169/86 91 10/10/16 06:02 16 10/10/16 01:55 Room Air 10/08/16 07:30 2.0 10/08/16 03:50 21 Intake and Output 10/09/16 10/09/16 10/10/16 15:00 23:00 07:00 Intake Total 250 ml Balance 250 ml Exam Constitutional: alert, oriented Psych: nl mood/affect, no complaints Head: atraumatic, normocephalic Neck: No jvd Respiratory: clear to auscultation, No crackles/rales Cardiovascular: regular rate and rhythm, No edema Gastrointestinal: non-tender, soft Neurological: nl mental status, nl speech Results Result Diagram: 10/09/1663410/09/16634 Medications Medications Current Medications Ondansetron HCl (Zofran Inj) 4 mg Q6H PRN IV NAUSEA AND/OR VOMITING; Start 10/04 at 19:00 Acetaminophen (Tylenol Tab) 650 mg Q6H PRN PO PAIN LEVEL 1-3 OR FEVER; Start at 19:00 Acetaminophen/ Hydrocodone Bitart ([place] (5/325)) 1 tab Q6H PRN PO MODERATE PAIN LEVEL 4-6; Start 10/04/16 at 19:00 Morphine Sulfate (morphine) 2 mg Q4H PRN IV SEVERE PAIN LEVEL 7-10; Start at 19:00 Docusate Sodium (Colace) 100 mg Q12H PRN PO CONSTIPATION; Start 10/04/16 at 19: 00 Magnesium Hydroxide (Milk Of Mag) 30 ml DAILY PRN PO CONSTIPATION Last administered on 10/08/16 20:19; Admin Dose 30 ML; Start 10/04/16 at 19:00 Sodium Biphosphate/ Sodium Phosphate (Fleet Enema) 133 ml DAILY PRN [place] CONSTIPATION; Start 10/04/16 at 19:00 Hydralazine HCl (Apresoline) 10 mg Q6H PRN IV ELEVATED BLOOD PRESSURE Last administered on 10/08/16 06:48; Admin Dose 10 MG; Start 10/04/16 at 19:00 Nitroglycerin (Nitroglycerin (Sl Tab) 0.4 Mg) 1 tab Q5M PRN SL ANGINA; Start at 19:00 Eye Lubricant (Artificial Tears Oph) 1 drop TID BOTH EYES Last administered on 10/09/16 21:24; Admin Dose 1 DROP; Start 10/04/16 at 21:00 Amiodarone HCl (Cordarone) 100 mg DAILY PO Last administered on 10/09/16 09:28 ; Admin Dose 100 MG; Start 10/05/16 at 09:00 Aspirin (Aspirin) 81 mg DAILY PO Last administered on 10/09/16 09:25; Admin Dose 81 MG; Start 10/05/16 at 09:00 Atorvastatin Calcium (Lipitor) 80 mg QHS PO Last administered on 10/09/16 21: 24; Admin Dose 80 MG; Start 10/04/16 at 21:00 EZETIMIBE (Zetia) 10 mg DAILY PO Last administered on 10/09/16 09:26; Admin Dose 10 MG; Start 10/05/16 at 09:00 Hydralazine HCl (Apresoline) 100 mg TID PO Last administered on 10/09/16 21:24 ; Admin Dose 100 MG; Start 10/04/16 at 21:00 Isosorbide Dinitrate (Isordil) 20 mg TID PO Last administered on 10/09/16 21: 25; Admin Dose 20 MG; Start 10/04/16 at 21:00 Zolpidem Tartrate (Ambien) 10 mg QHS PRN PO INSOMNIA Last administered on 01:59; Admin Dose 10 MG; Start 10/04/16 at 19:00 Miscellaneous Information 1 ea NOTE XX ; Start 10/04/16 at 19:30 Glucose (Glutose) 15 gm Q15M PRN PO DECREASED GLUCOSE; Start 10/04/16 at 19:30 Glucose (Glutose) 22.5 gm Q15M PRN PO DECREASED GLUCOSE; Start 10/04/16 at 19:30 Dextrose (D50w Syringe) 25 ml Q15M PRN IV DECREASED GLUCOSE; Start 10/04/16 at 19:30 Dextrose (D50w Syringe) 50 ml Q15M PRN IV DECREASED GLUCOSE; Start 10/04/16 at 19:30 Glucagon (Glucagen) 1 mg Q15M PRN IM DECREASED GLUCOSE; Start 10/04/16 at 19:30 Glucose 15 gm 15 gm Q15M PRN BUCCAL DECREASED GLUCOSE; Start 10/04/16 at 19:30 Piperacillin Sod/ Tazobactam Sod (Zosyn 2.25gm/ 50ml (Pmx)) 50 ml @ 100 mls/hr Q8 IVPB Last administered on 10/10/16 06:04; Admin Dose 100 MLS/HR; Start 10/04 at 23:00 Sertraline HCl (Zoloft) 50 mg DAILY@17 PO Last administered on 10/09/16 17:38 ; Admin Dose 50 MG; Start 10/05/16 at 17:00 Clonazepam (Klonopin) 0.5 mg Q8H PRN PO ANXIETY Last administered on 10/09/16 22:07; Admin Dose 0.5 MG; Start 10/05/16 at 10:30 Furosemide (Lasix) 20 mg DAILY PO Last administered on 10/09/16 09:26; Admin Dose 20 MG; Start 10/08/16 at 09:00 Famotidine (Pepcid) 20 mg DAILY PO Last administered on 10/09/16 09:27; Admin Dose 20 MG; Start 10/08/16 at 09:00 Amlodipine Besylate (Norvasc) 10 mg DAILY PO Last administered on 10/09/16 09: 26; Admin Dose 10 MG; Start 10/08/16 at 09:00 Thiamine HCl (Vitamin B1) 100 mg DAILY PO Last administered on 10/09/16 09:25 ; Admin Dose 100 MG; Start 10/08/16 at 11:00 Lactobacillus Acidophilus/ Rhamnosus (Culturelle) 1 cap BID PO Last administered on 10/09/16 21:25; Admin Dose 1 CAP; Start 10/08/16 at 11:00 Potassium Chloride (Potassium Chloride Pwd/Soln) 40 meq DAILY PO Last administered on 10/09/16 09:25; Admin Dose 40 MEQ; Start 10/08/16 at 11:00 Carvedilol (Coreg) 25 mg BID PO Last administered on 10/09/16 21:24; Admin Dose 25 MG; Start 10/09/16 at 07:59 EMILY TREVIÑO Oct 10, 2016 08:01
[2016-10-10] MEDS: ARTIFICIAL TEARS 15 ML OPH BOTH EYES SCH ×3 (08:49→21:44)
[2016-10-10] MEDS: ASPIRIN 81 MG TAB PO SCH (08:51)
[2016-10-10] MEDS: POTASSIUM CHLORIDE 20 MEQ POWDER FOR ORAL SOLN PO SCH (08:59)
[2016-10-10] MEDS: EZETIMIBE 10 MG TAB PO SCH (08:59)
[2016-10-10] MEDS: THIAMINE 100 MG TAB PO SCH (08:59)
[2016-10-10] MEDS: LACTOBACILLUS RHAMNOSUS CAP PO SCH ×2 (09:00→21:43)
[2016-10-10] MEDS: FUROSEMIDE 20 MG TAB PO SCH (09:00)
[2016-10-10] MEDS: FAMOTIDINE 20 MG TAB PO SCH (09:00)
[2016-10-10] MEDS: AMLODIPINE 5 MG TAB PO SCH (09:01)
[2016-10-10] MEDS: AMIODARONE 200 MG TAB PO SCH (09:01)
[2016-10-10] MEDS: ISOSORBIDE DINITRATE 20 MG TAB PO SCH ×3 (09:01→21:44)
[2016-10-10 10:32] LABS: ADD SCAN DIFF NO
[2016-10-10 10:40] LABS: BASOPHIL # 0.1 10^3/ul (0.0-0.1); BASOPHILS % 0.7 % (0.0-2.0); EOSINOPHILS # 0.3 10^3/ul (0.0-0.5); EOSINOPHILS % 2.8 % (0.0-7.0); HEMATOCRIT 31.6 % (42.0-52.0); LYMPHOCYTES % 17.8 % (15.0-51.0); MEAN CORPUSCULAR HEMOGLOBIN 27.8 pg (29.0-33.0); MEAN CORPUSCULAR HGB CONC 31.6 g/dl (32.0-37.0); MEAN CORPUSCULAR VOLUME 87.8 fl (82.0-101.0); MEAN PLATELET VOLUME 11.1 fl (7.4-10.4); MONOCYTE # 1.4 10^3/ul (0.3-0.9); MONOCYTES % 11.9 % (0.0-11.0); NEUTROPHIL # 7.1 10^3/ul (1.6-7.5); NEUTROPHILS % 62.4 % (39.0-77.0); PLATELET COUNT 394 10^3/UL (140-415); RED CELL DISTRIBUTION WIDTH 13.1 % (11.5-14.5); WHITE BLOOD COUNT 11.4 10^3/ul (4.8-10.8)
[2016-10-10 11:00] LABS: CREATININE 1.54 mg/dl (0.61-1.24); POTASSIUM 3.9 mmol/L (3.5-5.1)
--- NOTE | 2016-10-10 11:42 | PN ---
Date/Time of Note Date/Time of Note DATE: 10/10/16 TIME: 11:41 Assessment/Plan VTE Prophylaxis VTE Prophylaxis Intervention: LMWH Lines/Catheters IV [facility] Urinary Cath still in place: No Assessment/Plan Assessment/Plan 1. Small bowel obstruction secondary to #2: Resolved patient was tolerating a diet but is n.p.o. for surgery today 2. Incarcerated inguinal hernia status post reduction under anesthesia, plan for repair today 3. Hypertension with fluctuating control 4. History of CHF and recurrent flash pulmonary edema currently compensated 5. 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 History of carotid artery stenosis status post CEA 7. History of bilateral renal stenosis status post stents 8. Chronic kidney disease stage IV: Stable without acute abnormality 9. Chronic lung mass for which patient has refused workup and intervention repeatedly 10. Chronic cardiomyopathy and hx of VT likely ischemic status post AICD 11. JOEY contributing to #4: stable Plan: * Surgical repair of left-sided inguinal hernia today * Antihypertensives being titrated by cardiology /continue to hold Plavix * continue all other supportive care and pain control * Resume care postoperatively. Subjective 24 Hr Interval Summary Free Text/Dictation surgery scheduled for noon Exam/Review of Systems Vital Signs Vitals Vital Signs Date Time Temp Pulse Resp B/P Pulse Ox O2 Delivery O2 Flow Rate FiO2 10/10/16 08:48 Nasal Cannula 2.0 10/10/16 08:05 84 10/10/16 07:11 98.9 169/86 91 10/10/16 06:02 16 10/08/16 03:50 21 Intake and Output 10/09/16 10/09/16 10/10/16 15:00 23:00 07:00 Intake Total 250 ml Balance 250 ml Exam Constitutional: alert, oriented Head: atraumatic, normocephalic Neck: non-tender, supple Respiratory: clear to auscultation Cardiovascular: regular rate and rhythm Gastrointestinal: S/ NT / ND / +BS / no obvious hernia Extremities: no edema, good radial pulses Results Result Diagram: 10/10/16 0935 10/10/16 0935 Results 24 hrs Laboratory Tests Test 10/10/16 09:35 White Blood Count 11.4 H Red Blood Count 3.60 L Hemoglobin 10.0 L Hematocrit 31.6 L Mean Corpuscular Volume 87.8 Mean Corpuscular Hemoglobin 27.8 L Mean Corpuscular Hemoglobin Concent 31.6 L Red Cell Distribution Width 13.1 Platelet Count 394 Mean Platelet Volume 11.1 H Neutrophils % 62.4 Lymphocytes % 17.8 Monocytes % 11.9 H Eosinophils % 2.8 Basophils % 0.7 Nucleated Red Blood Cells % 0.0 Neutrophils # 7.1 Lymphocytes # 2.0 Monocytes # 1.4 H Eosinophils # 0.3 Basophils # 0.1 Nucleated Red Blood Cells # 0.0 Sodium Level 131 L Potassium Level 3.9 Chloride Level 96 L Carbon Dioxide Level 29 Anion Gap 10 Blood Urea Nitrogen 16 Creatinine 1.54 H Glucose Level 88 Calcium Level 9.0 Medications Medications Current Medications Ondansetron HCl (Zofran Inj) 4 mg Q6H PRN IV NAUSEA AND/OR VOMITING; Start 10/04 at 19:00 Acetaminophen (Tylenol Tab) 650 mg Q6H PRN PO PAIN LEVEL 1-3 OR FEVER; Start at 19:00 Acetaminophen/ Hydrocodone Bitart ([place] (5/325)) 1 tab Q6H PRN PO MODERATE PAIN LEVEL 4-6; Start 10/04/16 at 19:00 Morphine Sulfate (morphine) 2 mg Q4H PRN IV SEVERE PAIN LEVEL 7-10; Start at 19:00 Docusate Sodium (Colace) 100 mg Q12H PRN PO CONSTIPATION; Start 10/04/16 at 19: 00 Magnesium Hydroxide (Milk Of Mag) 30 ml DAILY PRN PO CONSTIPATION Last administered on 10/08/16 20:19; Admin Dose 30 ML; Start 10/04/16 at 19:00 Sodium Biphosphate/ Sodium Phosphate (Fleet Enema) 133 ml DAILY PRN [place] CONSTIPATION; Start 10/04/16 at 19:00 Hydralazine HCl (Apresoline) 10 mg Q6H PRN IV ELEVATED BLOOD PRESSURE Last administered on 10/08/16 06:48; Admin Dose 10 MG; Start 10/04/16 at 19:00 Nitroglycerin (Nitroglycerin (Sl Tab) 0.4 Mg) 1 tab Q5M PRN SL ANGINA; Start at 19:00 Eye Lubricant (Artificial Tears Oph) 1 drop TID BOTH EYES Last administered on 10/10/16 08:49; Admin Dose 1 DROP; Start 10/04/16 at 21:00 Amiodarone HCl (Cordarone) 100 mg DAILY PO Last administered on 10/10/16 09:01 ; Admin Dose 100 MG; Start 10/05/16 at 09:00 Aspirin (Aspirin) 81 mg DAILY PO Last administered on 10/09/16 09:25; Admin Dose 81 MG; Start 10/05/16 at 09:00 Atorvastatin Calcium (Lipitor) 80 mg QHS PO Last administered on 10/09/16 21: 24; Admin Dose 80 MG; Start 10/04/16 at 21:00 EZETIMIBE (Zetia) 10 mg DAILY PO Last administered on 10/10/16 08:59; Admin Dose 10 MG; Start 10/05/16 at 09:00 Hydralazine HCl (Apresoline) 100 mg TID PO Last administered on 10/10/16 09:02 ; Admin Dose 100 MG; Start 10/04/16 at 21:00 Isosorbide Dinitrate (Isordil) 20 mg TID PO Last administered on 10/10/16 09: 01; Admin Dose 20 MG; Start 10/04/16 at 21:00 Zolpidem Tartrate (Ambien) 10 mg QHS PRN PO INSOMNIA Last administered on 01:59; Admin Dose 10 MG; Start 10/04/16 at 19:00 Miscellaneous Information 1 ea NOTE XX ; Start 10/04/16 at 19:30 Glucose (Glutose) 15 gm Q15M PRN PO DECREASED GLUCOSE; Start 10/04/16 at 19:30 Glucose (Glutose) 22.5 gm Q15M PRN PO DECREASED GLUCOSE; Start 10/04/16 at 19:30 Dextrose (D50w Syringe) 25 ml Q15M PRN IV DECREASED GLUCOSE; Start 10/04/16 at 19:30 Dextrose (D50w Syringe) 50 ml Q15M PRN IV DECREASED GLUCOSE; Start 10/04/16 at 19:30 Glucagon (Glucagen) 1 mg Q15M PRN IM DECREASED GLUCOSE; Start 10/04/16 at 19:30 Glucose 15 gm 15 gm Q15M PRN BUCCAL DECREASED GLUCOSE; Start 10/04/16 at 19:30 Piperacillin Sod/ Tazobactam Sod (Zosyn 2.25gm/ 50ml (Pmx)) 50 ml @ 100 mls/hr Q8 IVPB Last administered on 10/10/16 06:04; Admin Dose 100 MLS/HR; Start 10/04 at 23:00 Sertraline HCl (Zoloft) 50 mg DAILY@17 PO Last administered on 10/09/16 17:38 ; Admin Dose 50 MG; Start 10/05/16 at 17:00 Clonazepam (Klonopin) 0.5 mg Q8H PRN PO ANXIETY Last administered on 10/09/16 22:07; Admin Dose 0.5 MG; Start 10/05/16 at 10:30 Furosemide (Lasix) 20 mg DAILY PO Last administered on 10/10/16 09:00; Admin Dose 20 MG; Start 10/08/16 at 09:00 Famotidine (Pepcid) 20 mg DAILY PO Last administered on 10/10/16 09:00; Admin Dose 20 MG; Start 10/08/16 at 09:00 Amlodipine Besylate (Norvasc) 10 mg DAILY PO Last administered on 10/10/16 09: 01; Admin Dose 10 MG; Start 10/08/16 at 09:00 Thiamine HCl (Vitamin B1) 100 mg DAILY PO Last administered on 10/10/16 08:59 ; Admin Dose 100 MG; Start 10/08/16 at 11:00 Lactobacillus Acidophilus/ Rhamnosus (Culturelle) 1 cap BID PO Last administered on 10/10/16 09:00; Admin Dose 1 CAP; Start 10/08/16 at 11:00 Potassium Chloride (Potassium Chloride Pwd/Soln) 40 meq DAILY PO Last administered on 10/10/16 08:59; Admin Dose 40 MEQ; Start 10/08/16 at 11:00 Carvedilol (Coreg) 25 mg BID PO Last administered on 10/10/16 09:00; Admin Dose 25 MG; Start 10/09/16 at 07:59 SANJUANITA SPAULDING Oct 10, 2016 11:42
[2016-10-10] MEDS ORDERED: BUPIVACAINE 0.25%/EPI (SDV) 30 ML INJ ONE (12:33)
--- NOTE | 2016-10-10 12:33 | CONS ---
Date/Time of Note Date/Time of Note DATE: 10/10/16 TIME: 12:31 Consult Date/Type/Reason Admit Date/Time Oct 05, 2016 at 12:04 Initial Consult Date 10/05/16 Type of Consultation: Pulm Ordering Provider: SANJUANITA SPAULDING Subjective comfortable Objective Vital Signs Date Time Temp Pulse Resp B/P Pulse Ox O2 Delivery O2 Flow Rate FiO2 10/10/16 08:48 Nasal Cannula 2.0 10/10/16 08:05 84 10/10/16 07:11 98.9 169/86 91 10/10/16 06:02 16 10/08/16 03:50 21 Intake and Output 10/09/16 10/09/16 10/10/16 14:59 22:59 06:59 Intake Total 250 ml Balance 250 ml Results/Medications Result Diagram: 10/10/16 0935 10/10/16 0935 Results 24 hrs Laboratory Tests Test 10/10/16 09:35 White Blood Count 11.4 H Red Blood Count 3.60 L Hemoglobin 10.0 L Hematocrit 31.6 L Mean Corpuscular Volume 87.8 Mean Corpuscular Hemoglobin 27.8 L Mean Corpuscular Hemoglobin Concent 31.6 L Red Cell Distribution Width 13.1 Platelet Count 394 Mean Platelet Volume 11.1 H Neutrophils % 62.4 Lymphocytes % 17.8 Monocytes % 11.9 H Eosinophils % 2.8 Basophils % 0.7 Nucleated Red Blood Cells % 0.0 Neutrophils # 7.1 Lymphocytes # 2.0 Monocytes # 1.4 H Eosinophils # 0.3 Basophils # 0.1 Nucleated Red Blood Cells # 0.0 Sodium Level 131 L Potassium Level 3.9 Chloride Level 96 L Carbon Dioxide Level 29 Anion Gap 10 Blood Urea Nitrogen 16 Creatinine 1.54 H Glucose Level 88 Calcium Level 9.0 Medications Current Medications Ondansetron HCl (Zofran Inj) 4 mg Q6H PRN IV NAUSEA AND/OR VOMITING; Start 10/04 at 19:00 Acetaminophen (Tylenol Tab) 650 mg Q6H PRN PO PAIN LEVEL 1-3 OR FEVER; Start at 19:00 Acetaminophen/ Hydrocodone Bitart ([place] (5/325)) 1 tab Q6H PRN PO MODERATE PAIN LEVEL 4-6; Start 10/04/16 at 19:00 Morphine Sulfate (morphine) 2 mg Q4H PRN IV SEVERE PAIN LEVEL 7-10; Start at 19:00 Docusate Sodium (Colace) 100 mg Q12H PRN PO CONSTIPATION; Start 10/04/16 at 19: 00 Magnesium Hydroxide (Milk Of Mag) 30 ml DAILY PRN PO CONSTIPATION Last administered on 10/08/16 20:19; Admin Dose 30 ML; Start 10/04/16 at 19:00 Sodium Biphosphate/ Sodium Phosphate (Fleet Enema) 133 ml DAILY PRN ID CONSTIPATION; Start 10/04/16 at 19:00 Hydralazine HCl (Apresoline) 10 mg Q6H PRN IV ELEVATED BLOOD PRESSURE Last administered on 10/08/16 06:48; Admin Dose 10 MG; Start 10/04/16 at 19:00 Nitroglycerin (Nitroglycerin (Sl Tab) 0.4 Mg) 1 tab Q5M PRN SL ANGINA; Start at 19:00 Eye Lubricant (Artificial Tears Oph) 1 drop TID BOTH EYES Last administered on 10/10/16 08:49; Admin Dose 1 DROP; Start 10/04/16 at 21:00 Amiodarone HCl (Cordarone) 100 mg DAILY PO Last administered on 10/10/16 09:01 ; Admin Dose 100 MG; Start 10/05/16 at 09:00 Aspirin (Aspirin) 81 mg DAILY PO Last administered on 10/09/16 09:25; Admin Dose 81 MG; Start 10/05/16 at 09:00 Atorvastatin Calcium (Lipitor) 80 mg QHS PO Last administered on 10/09/16 21: 24; Admin Dose 80 MG; Start 10/04/16 at 21:00 EZETIMIBE (Zetia) 10 mg DAILY PO Last administered on 10/10/16 08:59; Admin Dose 10 MG; Start 10/05/16 at 09:00 Hydralazine HCl (Apresoline) 100 mg TID PO Last administered on 10/10/16 09:02 ; Admin Dose 100 MG; Start 10/04/16 at 21:00 Isosorbide Dinitrate (Isordil) 20 mg TID PO Last administered on 10/10/16 09: 01; Admin Dose 20 MG; Start 10/04/16 at 21:00 Zolpidem Tartrate (Ambien) 10 mg QHS PRN PO INSOMNIA Last administered on 01:59; Admin Dose 10 MG; Start 10/04/16 at 19:00 Miscellaneous Information 1 ea NOTE XX ; Start 10/04/16 at 19:30 Glucose (Glutose) 15 gm Q15M PRN PO DECREASED GLUCOSE; Start 10/04/16 at 19:30 Glucose (Glutose) 22.5 gm Q15M PRN PO DECREASED GLUCOSE; Start 10/04/16 at 19:30 Dextrose (D50w Syringe) 25 ml Q15M PRN IV DECREASED GLUCOSE; Start 10/04/16 at 19:30 Dextrose (D50w Syringe) 50 ml Q15M PRN IV DECREASED GLUCOSE; Start 10/04/16 at 19:30 Glucagon (Glucagen) 1 mg Q15M PRN IM DECREASED GLUCOSE; Start 10/04/16 at 19:30 Glucose 15 gm 15 gm Q15M PRN BUCCAL DECREASED GLUCOSE; Start 10/04/16 at 19:30 Piperacillin Sod/ Tazobactam Sod (Zosyn 2.25gm/ 50ml (Pmx)) 50 ml @ 100 mls/hr Q8 IVPB Last administered on 10/10/16 06:04; Admin Dose 100 MLS/HR; Start 10/04 at 23:00 Sertraline HCl (Zoloft) 50 mg DAILY@17 PO Last administered on 10/09/16 17:38 ; Admin Dose 50 MG; Start 10/05/16 at 17:00 Clonazepam (Klonopin) 0.5 mg Q8H PRN PO ANXIETY Last administered on 10/09/16 22:07; Admin Dose 0.5 MG; Start 10/05/16 at 10:30 Furosemide (Lasix) 20 mg DAILY PO Last administered on 10/10/16 09:00; Admin Dose 20 MG; Start 10/08/16 at 09:00 Famotidine (Pepcid) 20 mg DAILY PO Last administered on 10/10/16 09:00; Admin Dose 20 MG; Start 10/08/16 at 09:00 Amlodipine Besylate (Norvasc) 10 mg DAILY PO Last administered on 10/10/16 09: 01; Admin Dose 10 MG; Start 10/08/16 at 09:00 Thiamine HCl (Vitamin B1) 100 mg DAILY PO Last administered on 10/10/16 08:59 ; Admin Dose 100 MG; Start 10/08/16 at 11:00 Lactobacillus Acidophilus/ Rhamnosus (Culturelle) 1 cap BID PO Last administered on 10/10/16 09:00; Admin Dose 1 CAP; Start 10/08/16 at 11:00 Potassium Chloride (Potassium Chloride Pwd/Soln) 40 meq DAILY PO Last administered on 10/10/16 08:59; Admin Dose 40 MEQ; Start 10/08/16 at 11:00 Carvedilol (Coreg) 25 mg BID PO Last administered on 10/10/16 09:00; Admin Dose 25 MG; Start 10/09/16 at 07:59 Assessment/Plan Chief Complaint/Hosp Course IMP: Incarcerated inguinal hernia surgical repair pending. Resolved SBO Stable COPD Stable coronary artery disease with ischemic cardiomyopathy Chronic kidney disease RECS: ICS BD's PT/OT titrate off O2 surgical recs Problems: MARY BARKER MD, [facility] Oct 10, 2016 12:33
[2016-10-10] MEDS ORDERED: MIDAZOLAM 1 MG/ML 2 ML INJ ONE (12:35)
[2016-10-10] MEDS ORDERED: FENTAnyl 50 MCG/ML VIAL ONE ×2 (12:35)
[2016-10-10] MEDS ORDERED: ETOMIDATE 20 MG INJ ONE (12:36)
[2016-10-10] MEDS ORDERED: ROCURONIUM 50 MG INJ ONE (12:36)
[2016-10-10] MEDS ORDERED: LIDOCAINE 2% (SDV) 5 ML INJ ONE (12:36)
[2016-10-10] MEDS ORDERED: SUCCINYLCHOLINE CHLORIDE 100 MG/5 ML SYG IV ONE (12:36)
[2016-10-10] MEDS ORDERED: PHENYLephrine (100 MCG/ML) 5ML SYG ONE (12:41)
--- NOTE | 2016-10-10 12:42 | HPN ---
Date/Time of Note Date/Time of Note DATE: 10/10/16 TIME: 12:41 Interval H&P Admission Note Pt. seen H&P reviewed: No system changes Pt. seen H&P reviewed. No system changes (I attest that I have seen and examined the patient and reviewed the operation in detail, as well as its risks , benefits and alternatives of the operation). I attest that I have seen and examined the patient and reviewed in detail the operation, and its associated risks, benefits and alternative. I have answered all the patient's questions to the best of my ability and the patient wishes to proceed. Please refer to rest of electronic medical record for additional updates. BLESSING HINSON M.D. Oct 10, 2016 12:41
[2016-10-10] MEDS ORDERED: LEVALBUTEROL (NEB) 0.63 MG/3 ML AMP HHN ONE (13:00)
[2016-10-10] MEDS ORDERED: ONDANSETRON 4 MG INJ IV PRN (13:00)
[2016-10-10] MEDS ORDERED: HYDROmorphONE (0.2 MG/ML) 10ML SYG IV PRN ×2 (13:00)
[2016-10-10] MEDS ORDERED: MEPERIDINE 25 MG INJ IV PRN (13:00)
[2016-10-10] MEDS ORDERED: HYDROmorphONE 2 MG/ML SYG ONE (13:43)
[2016-10-10] MEDS ORDERED: POLYMYXIN/BACITRACIN 1L IRRIG ONE (14:32)
[2016-10-10] MEDS ORDERED: BUPIVACAINE 0.25%/EPI (SDV) 30 ML INJ INJ ONE (15:00)
[2016-10-10] MEDS ORDERED: HEPARIN 1000 UNITS/NS 500 ML BAG IV ONE (15:00)
[2016-10-10] MEDS ORDERED: DOCUSATE SODIUM 100 MG CAP PO PRN (15:30)
[2016-10-10] MEDS ORDERED: BISACODYL 10 MG SUPP PR PRN (15:30)
[2016-10-10] MEDS ORDERED: HYDROCODONE/APAP (5/325) TAB PO PRN ×2 (15:30)
[2016-10-10] MEDS ORDERED: HYDROmorphONE 1 MG/ML SYG IV PRN ×2 (15:30)
[2016-10-10] MEDS ORDERED: NA PHOSPHATE/BIPHOS 133 ML ENEMA PR PRN (15:30)
--- NOTE | 2016-10-10 15:43 | OPR ---
Date/Time of Note Date/Time of Note DATE: 10/10/16 TIME: 15:42 Operative Report Procedure Description [facility] INPATIENT OPERATIVE NOTE PLACE OF SERVICE: [facility] DATE OF SURGERY: 10/10/2016 PREOPERATIVE DIAGNOSIS: 1. Left inguinal hernia, initially incarcerated and associated with small bowel obstruction, s/p an otherwise uncomplicated exam under anesthesia at [facility] 10/04/16 with successful reduction of left inguinal incarcerated region without any obvious evident complication 2. Coronary artery disease, status post CABG October 2015 with subsequent graft closure requiring PTCA with stenting 3. Ischemic cardiomyopathy: Ejection fraction approximately 20-25% 4. Status post ICD for secondary prevention 5. Severe atherosclerotic vascular disease 6. Peripheral vascular disease 7. Chronic kidney disease with renal insufficiency (creatinine between 2-1/2-3- 1/2) 8. Right-sided renal artery stenosis, status post bilateral renal artery stents and angioplasty in July 2016 9. Hypertension 10. Significant pulmonary disease with multiple admissions for lung problems including acute respiratory failure secondary to recurrent flash pulmonary edema and hypertensive emergency 11. Significant cardiac disease as above with multiple admissions for cardiac problems 12. Former smoker 13. 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 First-degree AV block, LAD, and left bundle branch block 15. Lesion of ramus coronary artery 16. History of shock 17. Hyperkalemia 18. Carotid stenosis, status post carotid endarterectomy 19. COPD 20. Extensive atherosclerotic vascular disease including ectasia of the distal thoracic aorta measuring up to 3.7 cm in multiple segments of intraluminal curvilinear calcifications suggesting multi focal chronic dissection (CT abdomen and pelvis [facility] 10/04/2016). 21. Cardiomegaly (CT abdomen and pelvis [facility] 10/04/2016). 22. Small nonobstructing bilateral renal calculi (CT abdomen and pelvis [facility] 10/04/2016). 23. Hyperuricemia POSTOPERATIVE DIAGNOSIS: 1. Left inguinal hernia, initially incarcerated and associated with small bowel obstruction, s/p an otherwise uncomplicated exam under anesthesia at [facility] 10/04/16 with successful reduction of left inguinal incarcerated region without any obvious evident complication 2. Coronary artery disease, status post CABG October 2015 with subsequent graft closure requiring PTCA with stenting 3. Ischemic cardiomyopathy: Ejection fraction approximately 20-25% 4. Status post ICD for secondary prevention 5. Severe atherosclerotic vascular disease 6. Peripheral vascular disease 7. Chronic kidney disease with renal insufficiency (creatinine between 2-1/2-3- 1/2) 8. Right-sided renal artery stenosis, status post bilateral renal artery stents and angioplasty in July 2016 9. Hypertension 10. Significant pulmonary disease with multiple admissions for lung problems including acute respiratory failure secondary to recurrent flash pulmonary edema and hypertensive emergency 11. Significant cardiac disease as above with multiple admissions for cardiac problems 12. Former smoker 13. 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 First-degree AV block, LAD, and left bundle branch block 15. Lesion of ramus coronary artery 16. History of shock 17. Hyperkalemia 18. Carotid stenosis, status post carotid endarterectomy 19. COPD 20. Extensive atherosclerotic vascular disease including ectasia of the distal thoracic aorta measuring up to 3.7 cm in multiple segments of intraluminal curvilinear calcifications suggesting multi focal chronic dissection (CT abdomen and pelvis [facility] 10/04/2016). 21. Cardiomegaly (CT abdomen and pelvis [facility] 10/04/2016). 22. Small nonobstructing bilateral renal calculi (CT abdomen and pelvis [facility] 10/04/2016). 23. Hyperuricemia OPERATION: 1. Laparoscopic left inguinal hernia repair with mesh (Symbotex 10 cm x 15 cm) SURGEON: Blessing Hinson M.D. RESTAURANT SHIFT LEADER: None ANESTHESIA: General endotracheal tube anesthesia ANESTHESIOLOGIST: Ana Orosco M.D. BRIEF SUMMARY: An otherwise uncomplicated laparoscopic left inguinal hernia repair with mesh was performed with findings of incarcerated left inguinal hernia. Updated Clinical Summary: A very-pleasant 65-year-old gentleman with multiple comorbid issues including severe cardiopulmonary disease, presenting with a very difficult issue of small bowel obstruction in the setting of incarcerated left inguinal hernia containing small bowel. S/p an otherwise uncomplicated exam under anesthesia at [facility] 10/04/16 with successful reduction of left inguinal incarcerated region without any obvious evident complication. Patient was very carefully observed and fortunately remained stable and telemetry unit at [facility]. His small bowel obstruction resolved. He remained hemodynamically stable. He was evaluated by his gyroscope technician, Dr. Zavala, as well as other specialists. After medical stabilization and after multidisciplinary discussion , we deemed the patient stable enough for definitive left inguinal hernia repair to reduce the chance of similar episodes from happening in the future. Comorbidities: 1. Small bowel obstruction with incarcerated left inguinal hernia 2. Coronary artery disease, status post CABG October 2015 with subsequent graft closure requiring PTCA with stenting 3. Ischemic cardiomyopathy: Ejection fraction approximately 20-25% 4. Status post ICD for secondary prevention 5. Severe atherosclerotic vascular disease 6. Peripheral vascular disease 7. Chronic kidney disease with renal insufficiency (creatinine between 2-1/2-3- 1/2) 8. Right-sided renal artery stenosis, status post bilateral renal artery stents and angioplasty in July 2016 9. Hypertension 10. Significant pulmonary disease with multiple admissions for lung problems including acute respiratory failure secondary to recurrent flash pulmonary edema and hypertensive emergency 11. Significant cardiac disease as above with multiple admissions for cardiac problems 12. Former smoker 13. 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 First-degree AV block, LAD, and left bundle branch block 15. Lesion of ramus coronary artery 16. History of shock 17. Hyperkalemia 18. Carotid stenosis, status post carotid endarterectomy 19. COPD 20. Extensive atherosclerotic vascular disease including ectasia of the distal thoracic aorta measuring up to 3.7 cm in multiple segments of intraluminal curvilinear calcifications suggesting multi focal chronic dissection (CT abdomen and pelvis [facility] 10/04/2016). 21. Cardiomegaly (CT abdomen and pelvis [facility] 10/04/2016). 22. Small nonobstructing bilateral renal calculi (CT abdomen and pelvis [facility] 10/04/2016). 23. Hyperuricemia 24. S/p an otherwise uncomplicated exam under anesthesia at [facility] 10/04/16 with successful reduction of left inguinal incarcerated region without any obvious evident complication. BRIEF HISTORY: The patient is a very pleasant 65-year-old gentleman with multiple comorbid issues including severe cardiopulmonary disease, presenting with a very difficult issue of small bowel obstruction in the setting of incarcerated left inguinal hernia containing small bowel. S/p an otherwise uncomplicated exam under anesthesia at [facility] 10/04/16 with successful reduction of left inguinal incarcerated region without any obvious evident complication. Patient was very carefully observed and fortunately remained stable and telemetry unit at [facility]. His small bowel obstruction resolved. He remained hemodynamically stable. He was evaluated by his gyroscope technician, Dr. Zavala, as well as other specialists. After medical stabilization and after multidisciplinary discussion, we deemed the patient stable enough for definitive left inguinal hernia repair to reduce the chance of similar episodes from happening in the future. I met with the patient and family several times and discussed the issues in detail. Preoperatively for his hernia repair, I met with them and counseled them regarding the possible options of treatment, and I strongly suggested a laparoscopic, possible open, left groin hernia repair, possible mesh, possible bilateral. We reviewed the operation in detail as well as the risks, benefits, alternatives, and expected outcomes of this operation. After careful consideration of all the risks, benefits, and alternatives, the patient and family appeared to understand those risks and wished to proceed with surgery. For a detailed report of my consultation with patient and family, please refer to my separate consultation note. STATEMENT OF THE INFORMED CONSENT: The patient and family appeared to understand the risks of the operation to include, but not be limited to risk of postoperative pain and scar tissue, possible infection or bleeding requiring other interventions such as opening the wound, placement of drainage catheters, or other operative interventions; possible injury to surrounding to structures including bowel, bladder, bile duct, or blood vessels, or solid organs such as liver, kidney, or pancreas requiring other interventions or procedures; possible infection of the mesh causing significant increase in morbidity and mortality and requiring multiple interventions including but not limited to, placement of drainage catheters, imaging studies, as well as operative interventions with possible removal of the mesh and recurrence of hernia requiring future repair; possible other source of sepsis such as urinary tract infections or pneumonias, or other sources of potentially life threatening problems such as deep venous thrombus formation causing pulmonary embolism, myocardial arrhythmias and infarctions, and even . We also briefly discussed the potential need to receive blood products and their potential complications of blood transfusion reactions, transmission of infections, or other complications. After careful consideration of all their options, the patient and family appeared to understand and wished to proceed with surgery. DESCRIPTION OF PROCEDURE: After obtaining informed consent, the patient was brought into the operating room and was placed in a normal supine position, where successful general endotracheal tube anesthesia was performed. Intravenous access was already in place and intravenous antimicrobials had been appropriately chosen and dosed prior to the operation. The patient's abdominal skin was prepped and draped from the nipple line down to the level of the upper thighs including the groin and in the usual sterile fashion. We then called a surgical time-out where the patient's identification, date of , nature of the operation, allergies, presence of intravenous antimicrobials, presence of needed equipment, and any other concerns were reviewed and agreed upon by all members of the operating room team. We then started the operation by placing a 5 mm [employer] trocar into the peritoneal space through a right lower quadrant 5 mm skin incision and using direct entry technique visualizing all the layers of the abdominal wall as we entered. Upon entry to the peritoneal space, we did not notice any obvious evidence of injury to underlying structures. We insufflated the abdominal cavity to a maximum pressure of 15 mmHg and again noted no significant adhesions in the region and found presence of a left inguinal hernia as suggested by the preoperative evaluation, with what appeared to be residual omentum adhesions onto the abdominal wall and separate from the rest of the abdominal cavity, and no bowel incarceration. The appearance of the visible portion of the bowels was normal without any evidence of necrosis, perforation, or obvious other abnormality. We placed a 12 mm trocar in the umbilical space as well as another 5 mm trocar in the right lower quadrant all under direct visualization and after injecting the sites with quarter percent Marcaine with epinephrine. With our instruments in place, we had excellent visualization and access to the pelvis. We positioned the patient in a Trendelenburg right side down position. The bowel appeared to be viable. We carefully inspected the right side and there was no evidence of any hernia on that side. I could feel a small bulge within the inguinal canal when I palpated the area of the left inguinal region from the outside. I was not able to push this area back in to the abdominal cavity. There was no evidence of incarcerated material looking from the inside. My assumption was that this was a piece of his omentum that had necrosis of within his hernia sac on the left. We then placed a transverse cut above the area of the hernia in the standard fashion on the peritoneum and took down the peritoneal covering from the left groin region until we were able to dissect the sac completely from the cord structures. We were eventually able to remove the incarcerated portion of the sac from the inguinal canal region. There was no obvious omentum that could be removed from this area, but the lining of the peritoneum appear to be thickened reminiscent of chronic incarceration in this region. After complete dissection of the sac from the cord structures, we ensured adequate hemostasis and then placed a 10 cm x 15 cm mesh (Symbotex) into the abdominal cavity and widely covered the area of the left hernia with mesh within the pocket. The mesh laid in the pocket nicely. We then secured the mesh onto the pubic tubercle and on the superior aspect and the most lateral aspect of the mesh using absorbable tacks. This was done under low insufflation. We again ensured adequate hemostasis and then covered the mesh with peritoneum using the peritoneal layer that we had taken down previously. After insuring adequate hemostasis, we removed all our equipment from the abdominal cavity including the pneumoperitoneum, closed the umbilical fascial defect using one [id number] 0 Vicryl suture on a UR 6 needle, washed the wounds with copious amounts normal saline, injected the initial entry site with quarter percent Marcaine with epinephrine, and then closed the skin using interrupted 4 Monocryl suture. Light dressing was then applied. At the end of the operation, both the sponge count and needle count were reportedly correct x2. The patient tolerated the procedure without any reported complications. Please also note that after the operation, I checked and make sure that both testicles were within the scrotum. ESTIMATED BLOOD LOSS: 10 mL BLOOD OR BLOOD PRODUCT TRANSFUSIONS: None to my knowledge. SPECIMENS: None COMPLICATIONS: None. DISPOSITION: Recovery area. Disclaimer: Inadvertent spelling and grammatical errors are likely due to EHR/ dictation software use and do not reflect on the quality of delivered patient care. Also, please note that the electronic time recorded on this node does not necessarily reflect the actual time of the visit. BLESSING HINSON M.D. Oct 10, 2016 15:43
[2016-10-10 15:51] LABS: ADD SCAN DIFF NO
[2016-10-10 16:18] LABS: INR 1.14; PROTIME 14.6 Sec (12.2-14.2); PT RATIO 1.1
[2016-10-10 16:19] LABS: PARTIAL THROMBOPLASTIN TIME 31.9 Sec (25.0-35.0)
[2016-10-10 16:23] LABS: BASOPHIL # 0.1 10^3/ul (0.0-0.1); BASOPHILS % 0.6 % (0.0-2.0); EOSINOPHILS # 0.3 10^3/ul (0.0-0.5); HEMATOCRIT 33.3 % (42.0-52.0); HEMOGLOBIN 10.8 g/dl (14.0-18.0); LYMPHOCYTES % 15.2 % (15.0-51.0); MEAN CORPUSCULAR HEMOGLOBIN 28.3 pg (29.0-33.0); MEAN CORPUSCULAR HGB CONC 32.4 g/dl (32.0-37.0); MEAN CORPUSCULAR VOLUME 87.4 fl (82.0-101.0); MEAN PLATELET VOLUME 11.4 fl (7.4-10.4); MONOCYTE # 1.3 10^3/ul (0.3-0.9); MONOCYTES % 9.9 % (0.0-11.0); NEUTROPHILS % 68.9 % (39.0-77.0); PLATELET COUNT 349 10^3/UL (140-415); RED BLOOD COUNT 3.81 10^6/ul (4.70-6.10); RED CELL DISTRIBUTION WIDTH 13.2 % (11.5-14.5); WHITE BLOOD COUNT 13.1 10^3/ul (4.8-10.8)
[2016-10-10 16:25] LABS: BILIRUBIN,INDIRECT 0.7 mg/dl (0-1.1); BILIRUBIN,TOTAL 0.7 mg/dl (0.2-1.3); CALCIUM 8.9 mg/dl (8.4-10.2); CREATININE 1.69 mg/dl (0.61-1.24); POTASSIUM 4.2 mmol/L (3.5-5.1)
[2016-10-10 16:26] LABS: ALBUMIN/GLOBULIN RATIO 1.53; PHOSPHORUS 3.9 mg/dl (2.5-4.9); TOTAL PROTEIN 6.6 g/dl (6.1-8.1)
[2016-10-10] MEDS: SERTRALINE 50 MG TAB PO SCH (17:28)
--- NOTE | 2016-10-10 20:28 | PN ---
Date/Time of Note Date/Time of Note DATE: 10/10/16 TIME: 11.05 Assessment/Plan VTE Prophylaxis VTE Prophylaxis Intervention: ambulation, SCD's Lines/Catheters IV Catheter Type (from Nrs): Saline Lock Urinary Cath still in place: No Assessment/Plan Assessment/Plan 1. Small bowel obstruction secondary to #2: Resolved patient was tolerating a diet but is n.p.o. for surgery today 2. Incarcerated inguinal hernia status post reduction under anesthesia, plan for repair today 3. Hypertension with fluctuating control 4. History of CHF and recurrent flash pulmonary edema currently compensated 5. 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 History of carotid artery stenosis status post CEA 7. History of bilateral renal stenosis status post stents 8. Chronic kidney disease stage IV: Stable without acute abnormality 9. Chronic lung mass for which patient has refused workup and intervention repeatedly 10. Chronic cardiomyopathy and hx of VT likely ischemic status post AICD 11. JOEY contributing to #4: stable Plan: * Surgical repair of left-sided inguinal hernia today * Antihypertensives being titrated by cardiology /continue to hold Plavix * continue all other supportive care and pain control * Resume care postoperatively. Subjective 24 Hr Interval Summary Free Text/Dictation surgery moved to today Constitutional: no complaints Exam/Review of Systems Vital Signs Vitals Vital Signs Date Time Temp Pulse Resp B/P Pulse Ox O2 Delivery O2 Flow Rate FiO2 10/10/16 19:54 98.1 83 18 134/74 93 10/10/16 16:40 Nasal Cannula 3.0 10/08/16 03:50 21 Intake and Output 10/09/16 10/09/16 10/10/16 15:00 23:00 07:00 Intake Total 1050 ml Balance 1050 ml Exam Constitutional: alert, oriented Head: atraumatic, normocephalic Neck: non-tender, supple Respiratory: clear to auscultation Cardiovascular: regular rate and rhythm Gastrointestinal: S/ NT / ND / +BS / no obvious hernia Extremities: no edema, good radial pulses Results Result Diagram: 10/10/16 1540 10/10/16 1540 Results 24 hrs Laboratory Tests Test 10/10/16 09:35 10/10/16 15:40 White Blood Count 11.4 H 13.1 H Red Blood Count 3.60 L 3.81 L Hemoglobin 10.0 L 10.8 L Hematocrit 31.6 L 33.3 L Mean Corpuscular Volume 87.8 87.4 Mean Corpuscular Hemoglobin 27.8 L 28.3 L Mean Corpuscular Hemoglobin Concent 31.6 L 32.4 Red Cell Distribution Width 13.1 13.2 Platelet Count 394 349 Mean Platelet Volume 11.1 H 11.4 H Neutrophils % 62.4 68.9 Lymphocytes % 17.8 15.2 Monocytes % 11.9 H 9.9 Eosinophils % 2.8 2.0 Basophils % 0.7 0.6 Nucleated Red Blood Cells % 0.0 0.0 Neutrophils # 7.1 9.0 H Lymphocytes # 2.0 2.0 Monocytes # 1.4 H 1.3 H Eosinophils # 0.3 0.3 Basophils # 0.1 0.1 Nucleated Red Blood Cells # 0.0 0.0 Sodium Level 131 L 135 Potassium Level 3.9 4.2 Chloride Level 96 L 101 Carbon Dioxide Level 29 28 Anion Gap 10 10 Blood Urea Nitrogen 16 15 Creatinine 1.54 H 1.69 H Glucose Level 88 108 Calcium Level 9.0 8.9 Prothrombin Time 14.6 H Prothrombin Time Ratio 1.1 INR International Normalized Ratio 1.14 Activated Partial Thromboplast Time 31.9 Lactic Acid Level 0.8 Phosphorus Level 3.9 Magnesium Level 2.0 Total Bilirubin 0.7 Direct Bilirubin 0.00 Indirect Bilirubin 0.7 Aspartate Amino Transf (AST/SGOT) 41 Alanine Aminotransferase (ALT/SGPT) 48 Alkaline Phosphatase 60 Total Protein 6.6 Albumin 4.0 Globulin 2.60 Albumin/Globulin Ratio 1.53 Medications Medications Current Medications Ondansetron HCl (Zofran Inj) 4 mg Q6H PRN IV NAUSEA AND/OR VOMITING; Start 10/04 at 19:00 Acetaminophen (Tylenol Tab) 650 mg Q6H PRN PO PAIN LEVEL 1-3 OR FEVER; Start at 19:00 Magnesium Hydroxide (Milk Of Mag) 30 ml DAILY PRN PO CONSTIPATION Last administered on 10/08/16 20:19; Admin Dose 30 ML; Start 10/04/16 at 19:00 Hydralazine HCl (Apresoline) 10 mg Q6H PRN IV ELEVATED BLOOD PRESSURE Last administered on 10/08/16 06:48; Admin Dose 10 MG; Start 10/04/16 at 19:00 Nitroglycerin (Nitroglycerin (Sl Tab) 0.4 Mg) 1 tab Q5M PRN SL ANGINA; Start at 19:00 Eye Lubricant (Artificial Tears Oph) 1 drop TID BOTH EYES Last administered on 10/10/16 08:49; Admin Dose 1 DROP; Start 10/04/16 at 21:00 Amiodarone HCl (Cordarone) 100 mg DAILY PO Last administered on 10/10/16 09:01 ; Admin Dose 100 MG; Start 10/05/16 at 09:00 Aspirin (Aspirin) 81 mg DAILY PO Last administered on 10/09/16 09:25; Admin Dose 81 MG; Start 10/05/16 at 09:00 Atorvastatin Calcium (Lipitor) 80 mg QHS PO Last administered on 10/09/16 21: 24; Admin Dose 80 MG; Start 10/04/16 at 21:00 EZETIMIBE (Zetia) 10 mg DAILY PO Last administered on 10/10/16 08:59; Admin Dose 10 MG; Start 10/05/16 at 09:00 Hydralazine HCl (Apresoline) 100 mg TID PO Last administered on 10/10/16 09:02 ; Admin Dose 100 MG; Start 10/04/16 at 21:00 Isosorbide Dinitrate (Isordil) 20 mg TID PO Last administered on 10/10/16 09: 01; Admin Dose 20 MG; Start 10/04/16 at 21:00 Zolpidem Tartrate (Ambien) 10 mg QHS PRN PO INSOMNIA Last administered on 01:59; Admin Dose 10 MG; Start 10/04/16 at 19:00 Miscellaneous Information 1 ea NOTE XX ; Start 10/04/16 at 19:30 Glucose (Glutose) 15 gm Q15M PRN PO DECREASED GLUCOSE; Start 10/04/16 at 19:30 Glucose (Glutose) 22.5 gm Q15M PRN PO DECREASED GLUCOSE; Start 10/04/16 at 19:30 Dextrose (D50w Syringe) 25 ml Q15M PRN IV DECREASED GLUCOSE; Start 10/04/16 at 19:30 Dextrose (D50w Syringe) 50 ml Q15M PRN IV DECREASED GLUCOSE; Start 10/04/16 at 19:30 Glucagon (Glucagen) 1 mg Q15M PRN IM DECREASED GLUCOSE; Start 10/04/16 at 19:30 Glucose (Glutose) 15 gm Q15M PRN BUCCAL DECREASED GLUCOSE; Start 10/04/16 at 19: 30 Sertraline HCl (Zoloft) 50 mg DAILY@17 PO Last administered on 10/10/16 17:28 ; Admin Dose 50 MG; Start 10/05/16 at 17:00 Clonazepam (Klonopin) 0.5 mg Q8H PRN PO ANXIETY Last administered on 10/09/16 22:07; Admin Dose 0.5 MG; Start 10/05/16 at 10:30 Furosemide (Lasix) 20 mg DAILY PO Last administered on 10/10/16 09:00; Admin Dose 20 MG; Start 10/08/16 at 09:00 Famotidine (Pepcid) 20 mg DAILY PO Last administered on 10/10/16 09:00; Admin Dose 20 MG; Start 10/08/16 at 09:00 Amlodipine Besylate (Norvasc) 10 mg DAILY PO Last administered on 10/10/16 09: 01; Admin Dose 10 MG; Start 10/08/16 at 09:00 Thiamine HCl (Vitamin B1) 100 mg DAILY PO Last administered on 10/10/16 08:59 ; Admin Dose 100 MG; Start 10/08/16 at 11:00 Lactobacillus Acidophilus/ Rhamnosus (Culturelle) 1 cap BID PO Last administered on 10/10/16 09:00; Admin Dose 1 CAP; Start 10/08/16 at 11:00 Potassium Chloride (Potassium Chloride Pwd/Soln) 40 meq DAILY PO Last administered on 10/10/16 08:59; Admin Dose 40 MEQ; Start 10/08/16 at 11:00 Carvedilol (Coreg) 25 mg BID PO Last administered on 10/10/16 09:00; Admin Dose 25 MG; Start 10/09/16 at 07:59 Acetaminophen/ Hydrocodone Bitart ([place] (5/325)) 1 tab Q4H PRN PO PAIN LEVEL 4 -7 Last administered on 10/10/16 20:05; Admin Dose 1 TAB; Start 10/10/16 at 15: 30 Acetaminophen/ Hydrocodone Bitart ([place] (5/325)) 2 tab Q4H PRN PO PAIN LEVEL 7 -10; Start 10/10/16 at 15:30 Hydromorphone HCl (Dilaudid) 0.5 mg Q2H PRN IV PAIN; Start 10/10/16 at 15:30 Hydromorphone HCl (Dilaudid) 1 mg Q2H PRN IV PAIN; Start 10/10/16 at 15:30 Docusate Sodium (Colace) 100 mg BID PRN PO CONSTIPATION; Start 10/10/16 at 15: 30 Bisacodyl (Dulcolax Supp) 10 mg BID PRN [place] CONSTIPATION; Start 10/10/16 at 15: 30 Sodium Biphosphate/ Sodium Phosphate (Fleet Enema) 133 ml BID PRN [place] CONSTIPATION; Start 10/10/16 at 15:30 SANJUANITA SPAULDING Oct 10, 2016 20:27
[2016-10-10] MEDS: ATORVASTATIN 80 MG TAB PO SCH (21:42)
[2016-10-11] VITALS (12 sets, daily range): BP systolic 116–138; BP diastolic 50–71; PULSE 69–84; RESP 17–20
[2016-10-11] MEDS: ARTIFICIAL TEARS 15 ML OPH BOTH EYES SCH ×3 (08:56→21:22)
[2016-10-11] MEDS: THIAMINE 100 MG TAB PO SCH (08:57)
[2016-10-11] MEDS: POTASSIUM CHLORIDE 20 MEQ POWDER FOR ORAL SOLN PO SCH (08:57)
[2016-10-11] MEDS: ASPIRIN 81 MG TAB PO SCH (08:57)
[2016-10-11] MEDS: FAMOTIDINE 20 MG TAB PO SCH (08:58)
[2016-10-11] MEDS: LACTOBACILLUS RHAMNOSUS CAP PO SCH ×2 (08:58→21:24)
[2016-10-11] MEDS: FUROSEMIDE 20 MG TAB PO SCH (08:58)
[2016-10-11] MEDS: ISOSORBIDE DINITRATE 20 MG TAB PO SCH ×3 (08:59→21:24)
[2016-10-11] MEDS: AMIODARONE 200 MG TAB PO SCH (09:00)
[2016-10-11] MEDS: EZETIMIBE 10 MG TAB PO SCH (09:00)
[2016-10-11] MEDS ORDERED: AMLODIPINE 10 MG TAB PO SCH (09:00)
[2016-10-11 09:05] LABS: ADD SCAN DIFF NO
[2016-10-11 09:06] LABS: BASOPHIL # 0.1 10^3/ul (0.0-0.1); BASOPHILS % 0.4 % (0.0-2.0); EOSINOPHILS # 0.2 10^3/ul (0.0-0.5); EOSINOPHILS % 1.3 % (0.0-7.0); HEMATOCRIT 30.8 % (42.0-52.0); HEMOGLOBIN 10.4 g/dl (14.0-18.0); LYMPHOCYTES # 1.6 10^3/ul (0.8-2.9); LYMPHOCYTES % 10.8 % (15.0-51.0); MEAN CORPUSCULAR HEMOGLOBIN 30.1 pg (29.0-33.0); MEAN CORPUSCULAR HGB CONC 33.8 g/dl (32.0-37.0); MEAN PLATELET VOLUME 11.2 fl (7.4-10.4); MONOCYTE # 1.2 10^3/ul (0.3-0.9); MONOCYTES % 8.4 % (0.0-11.0); NEUTROPHIL # 11.4 10^3/ul (1.6-7.5); PLATELET COUNT 376 10^3/UL (140-415); RED BLOOD COUNT 3.46 10^6/ul (4.70-6.10); RED CELL DISTRIBUTION WIDTH 13.3 % (11.5-14.5); WHITE BLOOD COUNT 14.8 10^3/ul (4.8-10.8)
[2016-10-11 09:28] LABS: INR 1.2; PROTIME 15.3 Sec (12.2-14.2); PT RATIO 1.2
[2016-10-11 09:29] LABS: PARTIAL THROMBOPLASTIN TIME 37.4 Sec (25.0-35.0)
[2016-10-11 09:39] LABS: ALBUMIN 3.6 g/dl (3.3-4.9); ALBUMIN/GLOBULIN RATIO 1.71; BILIRUBIN,INDIRECT 1.1 mg/dl (0-1.1); BILIRUBIN,TOTAL 1.1 mg/dl (0.2-1.3); CALCIUM 9.1 mg/dl (8.4-10.2); CREATININE 1.65 mg/dl (0.61-1.24); MAGNESIUM 1.8 mg/dl (1.7-2.5); PHOSPHORUS 3.7 mg/dl (2.5-4.9); POTASSIUM 4.4 mmol/L (3.5-5.1); TOTAL PROTEIN 5.7 g/dl (6.1-8.1)
[2016-10-11 10:25] LABS: ADD UMIC NO; UR ASCORBIC ACID NEGATIVE (NEGATIVE); UR BILIRUBIN (Dip) NEGATIVE (NEGATIVE); UR BLOOD (Dip) NEGATIVE (NEGATIVE); UR CLARITY CLEAR (CLEAR); UR COLOR YELLOW (YELLOW); UR GLUCOSE (Dip) NEGATIVE (NEGATIVE); UR KETONES (Dip) NEGATIVE (NEGATIVE); UR LEUKOCYTE ESTERASE (Dip) NEGATIVE Leu/ul (NEGATIVE); UR NITRITE (Dip) NEGATIVE (NEGATIVE); UR SPECIFIC GRAVITY (Dip) 1.011 (1.003-1.030); UR TOTAL PROTEIN (Dip) NEGATIVE (NEGATIVE); UR UROBILINOGEN (Dip) NEGATIVE (NEGATIVE)
--- NOTE | 2016-10-11 11:07 | CONS ---
Date/Time of Note Date/Time of Note DATE: 10/11/16 TIME: 11:03 Assessment/Plan Assessment/Plan Chief Complaint/Hosp Course SBO with incarcerated inguinal hernia: Resolved after hernia reduction under anesthesia. s/p successful laparoscopic mesh repair of hernia 10/10. Mild abd bloating/distension from ?insufflation h/o CAD s/p CABG/PCI: No e/o ischemia ICM (EF 20%): compensated Recurrent pulm edema: from HTN and renal artery stenosis as well as anxiety. No recurrence >1 month VT s/p ICD PVD s/p bilateral renal artery stenting and CEA CKD (baseline Cr mid 2s): currently better than baseline HTN: now better post-op. Anxiety driven -coreg 25 mg BID (may have to decrease back to home dose if BP starts trending down) -d/c amlodipine 10mg -lasix 20mg PO daily -start plavix 75mg daily at noon today (per Dr. Decker, ok in the afternoon) -continue ASA -hydralazine 100mg TID -isordil 20mg TID Problems: Consultation Date/Type/Reason Admit Date/Time Oct 05, 2016 at 12:04 Initial Consult Date 10/05/16 Type of Consultation: Cardiology Referring Provider: SANJUANITA SPAULDING 24 HR Interval Summary Free Text/Dictation s/p successful laparoscopic mesh repair of hernia. BP much better and was actually systolic 90s this am after am meds (amlodipine was held) Has some mild abd bloating and discomfort Exam/Review of Systems Vital Signs Vitals Vital Signs Date Time Temp Pulse Resp B/P Pulse Ox O2 Delivery O2 Flow Rate FiO2 10/11/16 08:44 Nasal Cannula 2.0 10/11/16 08:17 98.2 82 18 136/65 94 10/08/16 03:50 21 Intake and Output 10/10/16 10/10/16 10/11/16 15:00 23:00 07:00 Intake Total 440 ml 660 ml Output Total 505 ml 1025 ml 550 ml Balance -505 ml -585 ml 110 ml Exam Constitutional: alert, oriented Psych: nl mood/affect, no complaints Head: atraumatic, normocephalic Neck: No jvd Respiratory: clear to auscultation, No crackles/rales Cardiovascular: regular rate and rhythm, No edema Gastrointestinal: distended (mild), non-tender, soft Neurological: nl mental status, nl speech Results Result Diagram: 10/11/16 0812 10/11/16 0812 Results 24 hrs Laboratory Tests Test 10/10/16 15:40 10/11/16 02:20 10/11/16 08:12 10/11/16 08:15 White Blood Count 13.1 H 14.8 H Red Blood Count 3.81 L 3.46 L Hemoglobin 10.8 L 10.4 L Hematocrit 33.3 L 30.8 L Mean Corpuscular Volume 87.4 89.0 Mean Corpuscular Hemoglobin 28.3 L 30.1 Mean Corpuscular Hemoglobin Concent 32.4 33.8 Red Cell Distribution Width 13.2 13.3 Platelet Count 349 376 Mean Platelet Volume 11.4 H 11.2 H Neutrophils % 68.9 77.0 Lymphocytes % 15.2 10.8 L Monocytes % 9.9 8.4 Eosinophils % 2.0 1.3 Basophils % 0.6 0.4 Nucleated Red Blood Cells % 0.0 0.0 Neutrophils # 9.0 H 11.4 H Lymphocytes # 2.0 1.6 Monocytes # 1.3 H 1.2 H Eosinophils # 0.3 0.2 Basophils # 0.1 0.1 Nucleated Red Blood Cells # 0.0 0.0 Prothrombin Time 14.6 H 15.3 H Prothrombin Time Ratio 1.1 1.2 INR International Normalized Ratio 1.14 1.20 Activated Partial Thromboplast Time 31.9 37.4 H Sodium Level 135 131 L Potassium Level 4.2 4.4 Chloride Level 101 97 Carbon Dioxide Level 28 27 Anion Gap 10 11 Blood Urea Nitrogen 15 17 Creatinine 1.69 H 1.65 H Glucose Level 108 71 Lactic Acid Level 0.8 0.8 Calcium Level 8.9 9.1 Phosphorus Level 3.9 3.7 Magnesium Level 2.0 1.8 Total Bilirubin 0.7 1.1 Direct Bilirubin 0.00 0.00 Indirect Bilirubin 0.7 1.1 Aspartate Amino Transf (AST/SGOT) 41 37 Alanine Aminotransferase (ALT/SGPT) 48 49 Alkaline Phosphatase 60 55 Total Protein 6.6 5.7 L Albumin 4.0 3.6 Globulin 2.60 2.10 Albumin/Globulin Ratio 1.53 1.71 Urine Color YELLOW Urine Clarity CLEAR Urine pH 6.0 Urine Specific [place] 1.011 Urine Ketones NEGATIVE Urine Nitrite NEGATIVE Urine Bilirubin NEGATIVE Urine Urobilinogen NEGATIVE Urine Leukocyte Esterase NEGATIVE Urine Hemoglobin NEGATIVE Urine Glucose NEGATIVE Urine Total Protein NEGATIVE B-Type Natriuretic Peptide 97061 H Medications Medications Current Medications Ondansetron HCl (Zofran Inj) 4 mg Q6H PRN IV NAUSEA AND/OR VOMITING; Start 10/04 at 19:00 Acetaminophen (Tylenol Tab) 650 mg Q6H PRN PO PAIN LEVEL 1-3 OR FEVER; Start at 19:00 Magnesium Hydroxide (Milk Of Mag) 30 ml DAILY PRN PO CONSTIPATION Last administered on 10/08/16 20:19; Admin Dose 30 ML; Start 10/04/16 at 19:00 Hydralazine HCl (Apresoline) 10 mg Q6H PRN IV ELEVATED BLOOD PRESSURE Last administered on 10/08/16 06:48; Admin Dose 10 MG; Start 10/04/16 at 19:00 Nitroglycerin (Nitroglycerin (Sl Tab) 0.4 Mg) 1 tab Q5M PRN SL ANGINA; Start at 19:00 Eye Lubricant (Artificial Tears Oph) 1 drop TID BOTH EYES Last administered on 10/11/16 08:56; Admin Dose 1 DROP; Start 10/04/16 at 21:00 Amiodarone HCl (Cordarone) 100 mg DAILY PO Last administered on 10/11/16 09:00 ; Admin Dose 100 MG; Start 10/05/16 at 09:00 Aspirin (Aspirin) 81 mg DAILY PO Last administered on 10/11/16 08:57; Admin Dose 81 MG; Start 10/05/16 at 09:00 Atorvastatin Calcium (Lipitor) 80 mg QHS PO Last administered on 10/10/16 21: 42; Admin Dose 80 MG; Start 10/04/16 at 21:00 EZETIMIBE (Zetia) 10 mg DAILY PO Last administered on 10/11/16 09:00; Admin Dose 10 MG; Start 10/05/16 at 09:00 Hydralazine HCl (Apresoline) 100 mg TID PO Last administered on 10/11/16 08:58 ; Admin Dose 100 MG; Start 10/04/16 at 21:00 Isosorbide Dinitrate (Isordil) 20 mg TID PO Last administered on 10/11/16 08: 59; Admin Dose 20 MG; Start 10/04/16 at 21:00 Zolpidem Tartrate (Ambien) 10 mg QHS PRN PO INSOMNIA Last administered on 01:59; Admin Dose 10 MG; Start 10/04/16 at 19:00 Miscellaneous Information 1 ea NOTE XX ; Start 10/04/16 at 19:30 Glucose (Glutose) 15 gm Q15M PRN PO DECREASED GLUCOSE; Start 10/04/16 at 19:30 Glucose (Glutose) 22.5 gm Q15M PRN PO DECREASED GLUCOSE; Start 10/04/16 at 19:30 Dextrose (D50w Syringe) 25 ml Q15M PRN IV DECREASED GLUCOSE; Start 10/04/16 at 19:30 Dextrose (D50w Syringe) 50 ml Q15M PRN IV DECREASED GLUCOSE; Start 10/04/16 at 19:30 Glucagon (Glucagen) 1 mg Q15M PRN IM DECREASED GLUCOSE; Start 10/04/16 at 19:30 Glucose (Glutose) 15 gm Q15M PRN BUCCAL DECREASED GLUCOSE; Start 10/04/16 at 19: 30 Sertraline HCl (Zoloft) 50 mg DAILY@17 PO Last administered on 10/10/16 17:28 ; Admin Dose 50 MG; Start 10/05/16 at 17:00 Clonazepam (Klonopin) 0.5 mg Q8H PRN PO ANXIETY Last administered on 10/09/16 22:07; Admin Dose 0.5 MG; Start 10/05/16 at 10:30 Furosemide (Lasix) 20 mg DAILY PO Last administered on 10/11/16 08:58; Admin Dose 20 MG; Start 10/08/16 at 09:00 Famotidine (Pepcid) 20 mg DAILY PO Last administered on 10/11/16 08:58; Admin Dose 20 MG; Start 10/08/16 at 09:00 Thiamine HCl (Vitamin B1) 100 mg DAILY PO Last administered on 10/11/16 08:57 ; Admin Dose 100 MG; Start 10/08/16 at 11:00 Lactobacillus Acidophilus/ Rhamnosus (Culturelle) 1 cap BID PO Last administered on 10/11/16 08:58; Admin Dose 1 CAP; Start 10/08/16 at 11:00 Potassium Chloride (Potassium Chloride Pwd/Soln) 40 meq DAILY PO Last administered on 10/11/16 08:57; Admin Dose 40 MEQ; Start 10/08/16 at 11:00 Carvedilol (Coreg) 25 mg BID PO Last administered on 10/11/16 09:00; Admin Dose 25 MG; Start 10/09/16 at 07:59 Acetaminophen/ Hydrocodone Bitart ([place] (5/325)) 1 tab Q4H PRN PO PAIN LEVEL 4 -7 Last administered on 10/10/16 20:05; Admin Dose 1 TAB; Start 10/10/16 at 15: 30 Acetaminophen/ Hydrocodone Bitart ([place] (5/325)) 2 tab Q4H PRN PO PAIN LEVEL 7 -10; Start 10/10/16 at 15:30 Hydromorphone HCl (Dilaudid) 0.5 mg Q2H PRN IV PAIN Last administered on 05:57; Admin Dose 0.5 MG; Start 10/10/16 at 15:30 Hydromorphone HCl (Dilaudid) 1 mg Q2H PRN IV PAIN; Start 10/10/16 at 15:30 Docusate Sodium (Colace) 100 mg BID PRN PO CONSTIPATION; Start 10/10/16 at 15: 30 Bisacodyl (Dulcolax Supp) 10 mg BID PRN [place] CONSTIPATION; Start 10/10/16 at 15: 30 Sodium Biphosphate/ Sodium Phosphate (Fleet Enema) 133 ml BID PRN [place] CONSTIPATION; Start 10/10/16 at 15:30 Clopidogrel Bisulfate (plaVIX) 75 mg DAILY PO ; Start 10/11/16 at 12:00 Amlodipine Besylate (Norvasc) 10 mg DAILY PO ; Start 10/11/16 at 09:00 EMILY TREVIÑO Oct 11, 2016 11:07
--- NOTE | 2016-10-11 12:04 | PN ---
Date/Time of Note Date/Time of Note DATE: 10/11/16 TIME: 11:55 Assessment/Plan VTE Prophylaxis VTE Prophylaxis Intervention: SCD's Lines/Catheters IV Catheter Type (from Nrs): Saline Lock Urinary Cath still in place: Yes Reason Cath still needed: other (indicate) Assessment/Plan Assessment/Plan 1. Small bowel obstruction secondary to #2: Resolved 2. Incarcerated inguinal hernia status post reduction under anesthesia on admission and now s/p repair 10/10/16 3. Hypertension: controlled 4. History of CHF and recurrent flash pulmonary edema currently compensated 5. 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 History of carotid artery stenosis status post CEA 7. History of bilateral renal stenosis status post stents 8. Chronic kidney disease stage IV: Stable without acute abnormality 9. Chronic lung mass for which patient has refused workup and intervention repeatedly 10. Chronic cardiomyopathy and hx of VT likely ischemic status post AICD 11. JOEY contributing to #4: stable Plan: * Continue routine post op care * Antihypertensives being titrated by cardiology / Plavix to be resumed today * Re: ?dissection, May need repeat abdominal aortogram in a few months, good BP control for now , BB , supportive care * continue all other supportive care and pain control Subjective 24 Hr Interval Summary Free Text/Dictation mild abd pain Exam/Review of Systems Vital Signs Vitals Vital Signs Date Time Temp Pulse Resp B/P Pulse Ox O2 Delivery O2 Flow Rate FiO2 10/11/16 11:35 98.2 70 18 121/61 94 10/11/16 08:44 Nasal Cannula 2.0 10/08/16 03:50 21 Intake and Output 10/10/16 10/10/16 10/11/16 15:00 23:00 07:00 Intake Total 440 ml 660 ml Output Total 505 ml 1025 ml 550 ml Balance -505 ml -585 ml 110 ml Exam Constitutional: alert, oriented Head: atraumatic, normocephalic Neck: non-tender, supple Respiratory: clear to auscultation Cardiovascular: regular rate and rhythm Gastrointestinal: S/ NT / ND / hypoactive BS / surgery sites clean and mildly stained Extremities: no edema, good radial pulses Results Result Diagram: 7/12/17 0812 7/12/17 0812 Results 24 hrs Laboratory Tests Test 10/10/16 15:40 10/11/16 02:20 10/11/16 08:12 10/11/16 08:15 White Blood Count 13.1 H 14.8 H Red Blood Count 3.81 L 3.46 L Hemoglobin 10.8 L 10.4 L Hematocrit 33.3 L 30.8 L Mean Corpuscular Volume 87.4 89.0 Mean Corpuscular Hemoglobin 28.3 L 30.1 Mean Corpuscular Hemoglobin Concent 32.4 33.8 Red Cell Distribution Width 13.2 13.3 Platelet Count 349 376 Mean Platelet Volume 11.4 H 11.2 H Neutrophils % 68.9 77.0 Lymphocytes % 15.2 10.8 L Monocytes % 9.9 8.4 Eosinophils % 2.0 1.3 Basophils % 0.6 0.4 Nucleated Red Blood Cells % 0.0 0.0 Neutrophils # 9.0 H 11.4 H Lymphocytes # 2.0 1.6 Monocytes # 1.3 H 1.2 H Eosinophils # 0.3 0.2 Basophils # 0.1 0.1 Nucleated Red Blood Cells # 0.0 0.0 Prothrombin Time 14.6 H 15.3 H Prothrombin Time Ratio 1.1 1.2 INR International Normalized Ratio 1.14 1.20 Activated Partial Thromboplast Time 31.9 37.4 H Sodium Level 135 131 L Potassium Level 4.2 4.4 Chloride Level 101 97 Carbon Dioxide Level 28 27 Anion Gap 10 11 Blood Urea Nitrogen 15 17 Creatinine 1.69 H 1.65 H Glucose Level 108 71 Lactic Acid Level 0.8 0.8 Calcium Level 8.9 9.1 Phosphorus Level 3.9 3.7 Magnesium Level 2.0 1.8 Total Bilirubin 0.7 1.1 Direct Bilirubin 0.00 0.00 Indirect Bilirubin 0.7 1.1 Aspartate Amino Transf (AST/SGOT) 41 37 Alanine Aminotransferase (ALT/SGPT) 48 49 Alkaline Phosphatase 60 55 Total Protein 6.6 5.7 L Albumin 4.0 3.6 Globulin 2.60 2.10 Albumin/Globulin Ratio 1.53 1.71 Urine Color YELLOW Urine Clarity CLEAR Urine pH 6.0 Urine Specific [place] 1.011 Urine Ketones NEGATIVE Urine Nitrite NEGATIVE Urine Bilirubin NEGATIVE Urine Urobilinogen NEGATIVE Urine Leukocyte Esterase NEGATIVE Urine Hemoglobin NEGATIVE Urine Glucose NEGATIVE Urine Total Protein NEGATIVE B-Type Natriuretic Peptide 65102 H Medications Medications Current Medications Ondansetron HCl (Zofran Inj) 4 mg Q6H PRN IV NAUSEA AND/OR VOMITING; Start 10/04 at 19:00 Acetaminophen (Tylenol Tab) 650 mg Q6H PRN PO PAIN LEVEL 1-3 OR FEVER; Start at 19:00 Magnesium Hydroxide (Milk Of Mag) 30 ml DAILY PRN PO CONSTIPATION Last administered on 10/08/16 20:19; Admin Dose 30 ML; Start 10/04/16 at 19:00 Hydralazine HCl (Apresoline) 10 mg Q6H PRN IV ELEVATED BLOOD PRESSURE Last administered on 10/08/16 06:48; Admin Dose 10 MG; Start 10/04/16 at 19:00 Nitroglycerin (Nitroglycerin (Sl Tab) 0.4 Mg) 1 tab Q5M PRN SL ANGINA; Start at 19:00 Eye Lubricant (Artificial Tears Oph) 1 drop TID BOTH EYES Last administered on 10/11/16 08:56; Admin Dose 1 DROP; Start 10/04/16 at 21:00 Amiodarone HCl (Cordarone) 100 mg DAILY PO Last administered on 10/11/16 09:00 ; Admin Dose 100 MG; Start 10/05/16 at 09:00 Aspirin (Aspirin) 81 mg DAILY PO Last administered on 10/11/16 08:57; Admin Dose 81 MG; Start 10/05/16 at 09:00 Atorvastatin Calcium (Lipitor) 80 mg QHS PO Last administered on 10/10/16 21: 42; Admin Dose 80 MG; Start 10/04/16 at 21:00 EZETIMIBE (Zetia) 10 mg DAILY PO Last administered on 10/11/16 09:00; Admin Dose 10 MG; Start 10/05/16 at 09:00 Hydralazine HCl (Apresoline) 100 mg TID PO Last administered on 10/11/16 08:58 ; Admin Dose 100 MG; Start 10/04/16 at 21:00 Isosorbide Dinitrate (Isordil) 20 mg TID PO Last administered on 10/11/16 08: 59; Admin Dose 20 MG; Start 10/04/16 at 21:00 Zolpidem Tartrate (Ambien) 10 mg QHS PRN PO INSOMNIA Last administered on 01:59; Admin Dose 10 MG; Start 10/04/16 at 19:00 Miscellaneous Information 1 ea NOTE XX ; Start 10/04/16 at 19:30 Glucose (Glutose) 15 gm Q15M PRN PO DECREASED GLUCOSE; Start 10/04/16 at 19:30 Glucose (Glutose) 22.5 gm Q15M PRN PO DECREASED GLUCOSE; Start 10/04/16 at 19:30 Dextrose (D50w Syringe) 25 ml Q15M PRN IV DECREASED GLUCOSE; Start 10/04/16 at 19:30 Dextrose (D50w Syringe) 50 ml Q15M PRN IV DECREASED GLUCOSE; Start 10/04/16 at 19:30 Glucagon (Glucagen) 1 mg Q15M PRN IM DECREASED GLUCOSE; Start 10/04/16 at 19:30 Glucose (Glutose) 15 gm Q15M PRN BUCCAL DECREASED GLUCOSE; Start 10/04/16 at 19: 30 Sertraline HCl (Zoloft) 50 mg DAILY@17 PO Last administered on 10/10/16 17:28 ; Admin Dose 50 MG; Start 10/05/16 at 17:00 Clonazepam (Klonopin) 0.5 mg Q8H PRN PO ANXIETY Last administered on 10/09/16 22:07; Admin Dose 0.5 MG; Start 10/05/16 at 10:30 Furosemide (Lasix) 20 mg DAILY PO Last administered on 10/11/16 08:58; Admin Dose 20 MG; Start 10/08/16 at 09:00 Famotidine (Pepcid) 20 mg DAILY PO Last administered on 10/11/16 08:58; Admin Dose 20 MG; Start 10/08/16 at 09:00 Thiamine HCl (Vitamin B1) 100 mg DAILY PO Last administered on 10/11/16 08:57 ; Admin Dose 100 MG; Start 10/08/16 at 11:00 Lactobacillus Acidophilus/ Rhamnosus (Culturelle) 1 cap BID PO Last administered on 10/11/16 08:58; Admin Dose 1 CAP; Start 10/08/16 at 11:00 Potassium Chloride (Potassium Chloride Pwd/Soln) 40 meq DAILY PO Last administered on 10/11/16 08:57; Admin Dose 40 MEQ; Start 10/08/16 at 11:00 Carvedilol (Coreg) 25 mg BID PO Last administered on 10/11/16 09:00; Admin Dose 25 MG; Start 10/09/16 at 07:59 Acetaminophen/ Hydrocodone Bitart ([place] (5/325)) 1 tab Q4H PRN PO PAIN LEVEL 4 -7 Last administered on 10/10/16 20:05; Admin Dose 1 TAB; Start 10/10/16 at 15: 30 Acetaminophen/ Hydrocodone Bitart ([place] (5/325)) 2 tab Q4H PRN PO PAIN LEVEL 7 -10; Start 10/10/16 at 15:30 Hydromorphone HCl (Dilaudid) 0.5 mg Q2H PRN IV PAIN Last administered on 05:57; Admin Dose 0.5 MG; Start 10/10/16 at 15:30 Hydromorphone HCl (Dilaudid) 1 mg Q2H PRN IV PAIN; Start 10/10/16 at 15:30 Docusate Sodium (Colace) 100 mg BID PRN PO CONSTIPATION; Start 10/10/16 at 15: 30 Bisacodyl (Dulcolax Supp) 10 mg BID PRN [place] CONSTIPATION; Start 10/10/16 at 15: 30 Sodium Biphosphate/ Sodium Phosphate (Fleet Enema) 133 ml BID PRN [place] CONSTIPATION; Start 10/10/16 at 15:30 Clopidogrel Bisulfate (plaVIX) 75 mg DAILY PO ; Start 10/11/16 at 12:00 SANJUANITA SPAULDING Oct 11, 2016 12:04
[2016-10-11] MEDS: CLOPIDOGREL 75 MG TAB PO SCH (12:51)
--- NOTE | 2016-10-11 13:39 | PN ---
Date/Time of Note Date/Time of Note DATE: 10/11/16 TIME: 13:31 Assessment/Plan Lines/Catheters IV Catheter Type (from Nrsg): Saline Lock Crespo in Place (from Nrsg): Yes Assessment/Plan Assessment/Plan [facility] Progress Note Date of Service: 10/11/16 Today's Impression & Plan: Overall doing well post op without major issues. No major wound problems. No indication for acute surgical intervention. I'm extremely pleased so far with his outcome. No obvious cardiopulmonary issues post op so far. Still at high risk and given clinical picture, will benefit from another day in the hospital. With above assessment, I've recommended the following for today: 1. Advance diet to regular 2. Increase activity 3. Increase ICS 4. Labs in am 5. Possible d/c planning for 24-48 hrs from now pending other physicians' and providers' recommendations Thank you again for your great care of this very pleasant patient and wonderful family. If there are any questions, please feel free to call me at [phone]. Disclaimer: Inadvertent spelling or grammatical errors are likely due to EHR/ dictation software use and do not reflect on the overall quality of patient care. Updated Clinical Summary: Updated Clinical Summary: A very-pleasant 65-year-old gentleman with multiple comorbid issues including severe cardiopulmonary disease, presenting with a very difficult issue of small bowel obstruction in the setting of incarcerated left inguinal hernia containing small bowel. S/p an otherwise uncomplicated exam under anesthesia at [facility] 10/04/16 with successful reduction of left inguinal incarcerated region without any obvious evident complication. Patient was very carefully observed and fortunately remained stable and telemetry unit at [facility]. His small bowel obstruction resolved. He remained hemodynamically stable. He was evaluated by his front counter clerk, Dr. Zavala, as well as other specialists. After medical stabilization and after multidisciplinary discussion , we deemed the patient stable enough for definitive left inguinal hernia repair to reduce the chance of similar episodes from happening in the future. Comorbidities: 1. Left inguinal hernia, initially incarcerated and associated with small bowel obstruction, s/p an otherwise uncomplicated exam under anesthesia at [facility] 10/04/16 with successful reduction of left inguinal incarcerated region without any obvious evident complication; s/p an otherwise uncomplicated laparoscopic left inguinal hernia repair with mesh (Symbotex 10 cm x 15 cm) at [facility] 10/10/16 2. Coronary artery disease, status post CABG October 2015 with subsequent graft closure requiring PTCA with stenting 3. Ischemic cardiomyopathy: Ejection fraction approximately 20-25% 4. Status post ICD for secondary prevention 5. Severe atherosclerotic vascular disease 6. Peripheral vascular disease 7. Chronic kidney disease with renal insufficiency (creatinine between 2-1/2-3- 1/2) 8. Right-sided renal artery stenosis, status post bilateral renal artery stents and angioplasty in July 2016 9. Hypertension 10. Significant pulmonary disease with multiple admissions for lung problems including acute respiratory failure secondary to recurrent flash pulmonary edema and hypertensive emergency 11. Significant cardiac disease as above with multiple admissions for cardiac problems 12. Former smoker 13. 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 First-degree AV block, LAD, and left bundle branch block 15. Lesion of ramus coronary artery 16. History of shock 17. Hyperkalemia 18. Carotid stenosis, status post carotid endarterectomy 19. COPD 20. Extensive atherosclerotic vascular disease including ectasia of the distal thoracic aorta measuring up to 3.7 cm in multiple segments of intraluminal curvilinear calcifications suggesting multi focal chronic dissection (CT abdomen and pelvis [facility] 10/04/2016). 21. Cardiomegaly (CT abdomen and pelvis [facility] 10/04/2016). 22. Small nonobstructing bilateral renal calculi (CT abdomen and pelvis [facility] 10/04/2016). 23. Hyperuricemia Subjective: No major events or complaints; no major abd pain and under control with medications; some complaints of distention, and also throat discomfort; no n/v/d ; no sob or cp; + flatus; - BM; + activity Objective: Vitals: See below Exam: GENERAL: On exam, the patient was laying in bed and appeared to be comfortable and in no acute distress. ABDOMEN: Soft, nontender and nondistended. Incision dressings are clean, dry and intact without any evidence of obvious underlying erythema, edema, discharge , or hernia. There are no peritoneal signs or guarding. SKIN: Skin appears to be pink and feels warm to touch. NEUROLOGIC: Patient is awake, alert, and follows commands appropriately. Exam/Review of Systems Vital Signs Vitals Vital Signs Date Time Temp Pulse Resp B/P Pulse Ox O2 Delivery O2 Flow Rate FiO2 10/11/16 12:03 69 10/11/16 11:35 98.2 18 121/61 94 10/11/16 08:44 Nasal Cannula 2.0 10/08/16 03:50 21 Intake and Output 10/10/16 10/10/16 10/11/16 15:00 23:00 07:00 Intake Total 440 ml 660 ml Output Total 505 ml 1025 ml 550 ml Balance -505 ml -585 ml 110 ml Results Result Diagram: 10/11/1612 10/11/16811 BLESSING HINSON M.D. Oct 11, 2016 13:39
--- NOTE | 2016-10-11 15:11 | CONS ---
Date/Time of Note Date/Time of Note DATE: 10/11/16 TIME: 15:10 Consult Date/Type/Reason Admit Date/Time Oct 05, 2016 at 12:04 Initial Consult Date 10/05/16 Type of Consultation: Pulmonary Ordering Provider: SANJUANITA SPAUDLING Subjective Status post hernia repair with mesh Currently stable denies any significant shortness of breath no Fever chills chest pain palpitations Diet has been advanced Objective Vital Signs Date Time Temp Pulse Resp B/P Pulse Ox O2 Delivery O2 Flow Rate FiO2 10/11/16 12:03 69 10/11/16 11:35 98.2 18 121/61 94 10/11/16 08:44 Nasal Cannula 2.0 10/08/16 03:50 21 Intake and Output 10/10/16 10/10/16 10/11/16 14:59 22:59 06:59 Intake Total 440 ml 660 ml Output Total 1530 ml 550 ml Balance -1090 ml 110 ml Exam GENERAL: Elderly [place] gentleman comfortable at rest no acute distress VITAL SIGNS: per chart NECK: Supple. No JVD or lymphadenopathy. CARDIAC EXAM: S1, S2. No added sounds or murmurs. CHEST: clear bilaterally, No added sounds, rales or wheezes ABDOMEN: Soft, nontender. No guarding or rebound. EXTREMITIES: No cyanosis, clubbing or edema. NEUROLOGIC: Generalized weakness. No focal deficits. Results/Medications Result Diagram: 10/11/1612 10/11/1612 Results 24 hrs Laboratory Tests Test 10/10/16 15:40 10/11/16 02:20 10/11/16 08:12 10/11/16 08:15 White Blood Count 13.1 H 14.8 H Red Blood Count 3.81 L 3.46 L Hemoglobin 10.8 L 10.4 L Hematocrit 33.3 L 30.8 L Mean Corpuscular Volume 87.4 89.0 Mean Corpuscular Hemoglobin 28.3 L 30.1 Mean Corpuscular Hemoglobin Concent 32.4 33.8 Red Cell Distribution Width 13.2 13.3 Platelet Count 349 376 Mean Platelet Volume 11.4 H 11.2 H Neutrophils % 68.9 77.0 Lymphocytes % 15.2 10.8 L Monocytes % 9.9 8.4 Eosinophils % 2.0 1.3 Basophils % 0.6 0.4 Nucleated Red Blood Cells % 0.0 0.0 Neutrophils # 9.0 H 11.4 H Lymphocytes # 2.0 1.6 Monocytes # 1.3 H 1.2 H Eosinophils # 0.3 0.2 Basophils # 0.1 0.1 Nucleated Red Blood Cells # 0.0 0.0 Prothrombin Time 14.6 H 15.3 H Prothrombin Time Ratio 1.1 1.2 INR International Normalized Ratio 1.14 1.20 Activated Partial Thromboplast Time 31.9 37.4 H Sodium Level 135 131 L Potassium Level 4.2 4.4 Chloride Level 101 97 Carbon Dioxide Level 28 27 Anion Gap 10 11 Blood Urea Nitrogen 15 17 Creatinine 1.69 H 1.65 H Glucose Level 108 71 Lactic Acid Level 0.8 0.8 Calcium Level 8.9 9.1 Phosphorus Level 3.9 3.7 Magnesium Level 2.0 1.8 Total Bilirubin 0.7 1.1 Direct Bilirubin 0.00 0.00 Indirect Bilirubin 0.7 1.1 Aspartate Amino Transf (AST/SGOT) 41 37 Alanine Aminotransferase (ALT/SGPT) 48 49 Alkaline Phosphatase 60 55 Total Protein 6.6 5.7 L Albumin 4.0 3.6 Globulin 2.60 2.10 Albumin/Globulin Ratio 1.53 1.71 Urine Color YELLOW Urine Clarity CLEAR Urine pH 6.0 Urine Specific [place] 1.011 Urine Ketones NEGATIVE Urine Nitrite NEGATIVE Urine Bilirubin NEGATIVE Urine Urobilinogen NEGATIVE Urine Leukocyte Esterase NEGATIVE Urine Hemoglobin NEGATIVE Urine Glucose NEGATIVE Urine Total Protein NEGATIVE B-Type Natriuretic Peptide 21410 H Medications Current Medications Ondansetron HCl (Zofran Inj) 4 mg Q6H PRN IV NAUSEA AND/OR VOMITING; Start 10/04 at 19:00 Acetaminophen (Tylenol Tab) 650 mg Q6H PRN PO PAIN LEVEL 1-3 OR FEVER; Start at 19:00 Magnesium Hydroxide (Milk Of Mag) 30 ml DAILY PRN PO CONSTIPATION Last administered on 10/08/16 20:19; Admin Dose 30 ML; Start 10/04/16 at 19:00 Hydralazine HCl (Apresoline) 10 mg Q6H PRN IV ELEVATED BLOOD PRESSURE Last administered on 10/08/16 06:48; Admin Dose 10 MG; Start 10/04/16 at 19:00 Nitroglycerin (Nitroglycerin (Sl Tab) 0.4 Mg) 1 tab Q5M PRN SL ANGINA; Start at 19:00 Eye Lubricant (Artificial Tears Oph) 1 drop TID BOTH EYES Last administered on 10/11/16 12:53; Admin Dose 1 DROP; Start 10/04/16 at 21:00 Amiodarone HCl (Cordarone) 100 mg DAILY PO Last administered on 10/11/16 09:00 ; Admin Dose 100 MG; Start 10/05/16 at 09:00 Aspirin (Aspirin) 81 mg DAILY PO Last administered on 10/11/16 08:57; Admin Dose 81 MG; Start 10/05/16 at 09:00 Atorvastatin Calcium (Lipitor) 80 mg QHS PO Last administered on 10/10/16 21: 42; Admin Dose 80 MG; Start 10/04/16 at 21:00 EZETIMIBE (Zetia) 10 mg DAILY PO Last administered on 10/11/16 09:00; Admin Dose 10 MG; Start 10/05/16 at 09:00 Hydralazine HCl (Apresoline) 100 mg TID PO Last administered on 10/11/16 12:52 ; Admin Dose 100 MG; Start 10/04/16 at 21:00 Isosorbide Dinitrate (Isordil) 20 mg TID PO Last administered on 10/11/16 12: 53; Admin Dose 20 MG; Start 10/04/16 at 21:00 Zolpidem Tartrate (Ambien) 10 mg QHS PRN PO INSOMNIA Last administered on 01:59; Admin Dose 10 MG; Start 10/04/16 at 19:00 Miscellaneous Information 1 ea NOTE XX ; Start 10/04/16 at 19:30 Glucose (Glutose) 15 gm Q15M PRN PO DECREASED GLUCOSE; Start 10/04/16 at 19:30 Glucose (Glutose) 22.5 gm Q15M PRN PO DECREASED GLUCOSE; Start 10/04/16 at 19:30 Dextrose (D50w Syringe) 25 ml Q15M PRN IV DECREASED GLUCOSE; Start 10/04/16 at 19:30 Dextrose (D50w Syringe) 50 ml Q15M PRN IV DECREASED GLUCOSE; Start 10/04/16 at 19:30 Glucagon (Glucagen) 1 mg Q15M PRN IM DECREASED GLUCOSE; Start 10/04/16 at 19:30 Glucose (Glutose) 15 gm Q15M PRN BUCCAL DECREASED GLUCOSE; Start 10/04/16 at 19: 30 Sertraline HCl (Zoloft) 50 mg DAILY@17 PO Last administered on 10/10/16 17:28 ; Admin Dose 50 MG; Start 10/05/16 at 17:00 Clonazepam (Klonopin) 0.5 mg Q8H PRN PO ANXIETY Last administered on 10/09/16 22:07; Admin Dose 0.5 MG; Start 10/05/16 at 10:30 Furosemide (Lasix) 20 mg DAILY PO Last administered on 10/11/16 08:58; Admin Dose 20 MG; Start 10/08/16 at 09:00 Famotidine (Pepcid) 20 mg DAILY PO Last administered on 10/11/16 08:58; Admin Dose 20 MG; Start 10/08/16 at 09:00 Thiamine HCl (Vitamin B1) 100 mg DAILY PO Last administered on 10/11/16 08:57 ; Admin Dose 100 MG; Start 10/08/16 at 11:00 Lactobacillus Acidophilus/ Rhamnosus (Culturelle) 1 cap BID PO Last administered on 10/11/16 08:58; Admin Dose 1 CAP; Start 10/08/16 at 11:00 Potassium Chloride (Potassium Chloride Pwd/Soln) 40 meq DAILY PO Last administered on 10/11/16 08:57; Admin Dose 40 MEQ; Start 10/08/16 at 11:00 Carvedilol (Coreg) 25 mg BID PO Last administered on 10/11/16 09:00; Admin Dose 25 MG; Start 10/09/16 at 07:59 Acetaminophen/ Hydrocodone Bitart ([place] (5/325)) 1 tab Q4H PRN PO PAIN LEVEL 4 -7 Last administered on 10/10/16 20:05; Admin Dose 1 TAB; Start 10/10/16 at 15: 30 Acetaminophen/ Hydrocodone Bitart ([place] (5/325)) 2 tab Q4H PRN PO PAIN LEVEL 7 -10; Start 10/10/16 at 15:30 Hydromorphone HCl (Dilaudid) 0.5 mg Q2H PRN IV PAIN Last administered on 05:57; Admin Dose 0.5 MG; Start 10/10/16 at 15:30 Hydromorphone HCl (Dilaudid) 1 mg Q2H PRN IV PAIN; Start 10/10/16 at 15:30 Docusate Sodium (Colace) 100 mg BID PRN PO CONSTIPATION; Start 10/10/16 at 15: 30 Bisacodyl (Dulcolax Supp) 10 mg BID PRN [place] CONSTIPATION; Start 10/10/16 at 15: 30 Sodium Biphosphate/ Sodium Phosphate (Fleet Enema) 133 ml BID PRN [place] CONSTIPATION; Start 10/10/16 at 15:30 Clopidogrel Bisulfate (plaVIX) 75 mg DAILY PO Last administered on 10/11/16t 12 :51; Admin Dose 75 MG; Start 10/11/16 at 12:00 Assessment/Plan Chief Complaint/Hosp Course IMP: Incarcerated inguinal hernia status post surgical repair yesterday Stable COPD Stable coronary artery disease with ischemic cardiomyopathy Chronic kidney disease RECS: ICS BD's PT/OT titrate off O2 surgical recs, advance diet encourage out of bed Agree with discharge planning tomorrow Problems: MARY BARKER MD, [facility] Oct 11, 2016 15:11
[2016-10-11] MEDS: SERTRALINE 50 MG TAB PO SCH (16:48)
[2016-10-11] MEDS: ATORVASTATIN 80 MG TAB PO SCH (21:24)
[2016-10-12] VITALS (10 sets, daily range): BP systolic 120–133; BP diastolic 57–66; PULSE 69–82; RESP 18–22
[2016-10-12 08:28] LABS: CALCIUM 8.9 mg/dl (8.4-10.2); MAGNESIUM 1.9 mg/dl (1.7-2.5); PHOSPHORUS 3.1 mg/dl (2.5-4.9)
[2016-10-12] MEDS: POTASSIUM CHLORIDE 20 MEQ POWDER FOR ORAL SOLN PO SCH ×2 (09:00→09:37)
[2016-10-12 09:17] LABS: ADD SCAN DIFF NO
[2016-10-12 09:27] LABS: CALCIUM 8.9 mg/dl (8.4-10.2); CREATININE 1.84 mg/dl (0.61-1.24); POTASSIUM 3.7 mmol/L (3.5-5.1)
[2016-10-12] MEDS: CLOPIDOGREL 75 MG TAB PO SCH (09:34)
[2016-10-12] MEDS: ASPIRIN 81 MG TAB PO SCH (09:34)
[2016-10-12] MEDS: THIAMINE 100 MG TAB PO SCH (09:34)
[2016-10-12] MEDS: LACTOBACILLUS RHAMNOSUS CAP PO SCH ×2 (09:34→21:46)
[2016-10-12] MEDS: EZETIMIBE 10 MG TAB PO SCH (09:35)
[2016-10-12] MEDS: FUROSEMIDE 20 MG TAB PO SCH (09:35)
[2016-10-12] MEDS: ISOSORBIDE DINITRATE 20 MG TAB PO SCH ×3 (09:35→21:45)
[2016-10-12] MEDS: FAMOTIDINE 20 MG TAB PO SCH (09:35)
[2016-10-12] MEDS: AMIODARONE 200 MG TAB PO SCH (09:36)
[2016-10-12] MEDS: ARTIFICIAL TEARS 15 ML OPH BOTH EYES SCH ×3 (09:36→21:00)
[2016-10-12 09:41] LABS: BASOPHIL # 0.1 10^3/ul (0.0-0.1); BASOPHILS % 0.4 % (0.0-2.0); EOSINOPHILS # 0.2 10^3/ul (0.0-0.5); EOSINOPHILS % 1.1 % (0.0-7.0); HEMATOCRIT 27.1 % (42.0-52.0); HEMOGLOBIN 9.7 g/dl (14.0-18.0); LYMPHOCYTES # 1.5 10^3/ul (0.8-2.9); LYMPHOCYTES % 10.5 % (15.0-51.0); MEAN CORPUSCULAR HEMOGLOBIN 31.7 pg (29.0-33.0); MEAN CORPUSCULAR HGB CONC 35.8 g/dl (32.0-37.0); MEAN CORPUSCULAR VOLUME 88.6 fl (82.0-101.0); MEAN PLATELET VOLUME 11.7 fl (7.4-10.4); MONOCYTE # 1.4 10^3/ul (0.3-0.9); MONOCYTES % 9.5 % (0.0-11.0); NEUTROPHIL # 10.9 10^3/ul (1.6-7.5); PLATELET COUNT 328 10^3/UL (140-415); RED BLOOD COUNT 3.06 10^6/ul (4.70-6.10); RED CELL DISTRIBUTION WIDTH 13.3 % (11.5-14.5); WHITE BLOOD COUNT 14.2 10^3/ul (4.8-10.8)
--- NOTE | 2016-10-12 10:11 | CONS ---
Date/Time of Note Date/Time of Note DATE: 10/12/16 TIME: 10:09 Assessment/Plan Assessment/Plan Chief Complaint/Hosp Course SBO with incarcerated inguinal hernia: Resolved after hernia reduction under anesthesia. s/p successful laparoscopic mesh repair of hernia 10/10. Mild abd bloating/distension, has not had a BM yet h/o CAD s/p CABG/PCI: No e/o ischemia ICM (EF 20%): compensated Recurrent pulm edema: from HTN and renal artery stenosis as well as anxiety. No recurrence >1 month VT s/p ICD PVD s/p bilateral renal artery stenting and CEA CKD (baseline Cr mid 2s): currently better than baseline HTN: now better post-op. Anxiety driven -coreg 25 mg BID -lasix 20mg PO daily -plavix 75mg daily -continue ASA -hydralazine 100mg TID -isordil 20mg TID -d/c you -bowel regimen Problems: Consultation Date/Type/Reason Admit Date/Time Oct 05, 2016 at 12:04 Initial Consult Date 10/05/16 Type of Consultation: Cardiology Referring Provider: SANJUANITA SPAULDING 24 HR Interval Summary Free Text/Dictation Still with mild abdominal pain. Has not had a BM but is passing gas. No chest pain or SOB. Exam/Review of Systems Vital Signs Vitals Vital Signs Date Time Temp Pulse Resp B/P Pulse Ox O2 Delivery O2 Flow Rate FiO2 10/12/16 08:30 71 10/12/16 06:51 98.1 18 132/60 92 10/11/16 19:54 Nasal Cannula 2.0 Intake and Output 10/11/16 10/11/16 10/12/16 15:00 23:00 07:00 Intake Total 750 ml 800 ml Output Total 700 ml 1500 ml Balance 50 ml -700 ml Exam Constitutional: alert, oriented Psych: nl mood/affect, no complaints Neck: No jvd Respiratory: No clear to auscultation (midl crackles ?atelectasis ) Cardiovascular: regular rate and rhythm, No edema, No systolic murmur Gastrointestinal: non-tender, soft Neurological: nl mental status, nl speech Results Result Diagram: 10/12/16 0707 10/12/16 0710 Results 24 hrs Laboratory Tests Test 10/12/16 07:07 10/12/16 07:10 White Blood Count 14.2 H Red Blood Count 3.06 L Hemoglobin 9.7 L Hematocrit 27.1 L Mean Corpuscular Volume 88.6 Mean Corpuscular Hemoglobin 31.7 Mean Corpuscular Hemoglobin Concent 35.8 Red Cell Distribution Width 13.3 Platelet Count 328 Mean Platelet Volume 11.7 H Neutrophils % 77.0 Lymphocytes % 10.5 L Monocytes % 9.5 Eosinophils % 1.1 Basophils % 0.4 Nucleated Red Blood Cells % 0.0 Neutrophils # 10.9 H Lymphocytes # 1.5 Monocytes # 1.4 H Eosinophils # 0.2 Basophils # 0.1 Nucleated Red Blood Cells # 0.0 Calcium Level 8.9 8.9 Phosphorus Level 3.1 Magnesium Level 1.9 Sodium Level 130 L Potassium Level 3.7 Chloride Level 97 Carbon Dioxide Level 28 Anion Gap 9 Blood Urea Nitrogen 16 Creatinine 1.84 H Glucose Level 92 Medications Medications Current Medications Ondansetron HCl (Zofran Inj) 4 mg Q6H PRN IV NAUSEA AND/OR VOMITING; Start 10/04 at 19:00 Acetaminophen (Tylenol Tab) 650 mg Q6H PRN PO PAIN LEVEL 1-3 OR FEVER; Start at 19:00 Magnesium Hydroxide (Milk Of Mag) 30 ml DAILY PRN PO CONSTIPATION Last administered on 10/08/16 20:19; Admin Dose 30 ML; Start 10/04/16 at 19:00 Hydralazine HCl (Apresoline) 10 mg Q6H PRN IV ELEVATED BLOOD PRESSURE Last administered on 10/08/16 06:48; Admin Dose 10 MG; Start 10/04/16 at 19:00 Nitroglycerin (Nitroglycerin (Sl Tab) 0.4 Mg) 1 tab Q5M PRN SL ANGINA; Start at 19:00 Eye Lubricant (Artificial Tears Oph) 1 drop TID BOTH EYES Last administered on 10/12/16 09:36; Admin Dose 1 DROP; Start 10/04/16 at 21:00 Amiodarone HCl (Cordarone) 100 mg DAILY PO Last administered on 10/12/16 09:36 ; Admin Dose 100 MG; Start 10/05/16 at 09:00 Aspirin (Aspirin) 81 mg DAILY PO Last administered on 10/12/16 09:34; Admin Dose 81 MG; Start 10/05/16 at 09:00 Atorvastatin Calcium (Lipitor) 80 mg QHS PO Last administered on 10/11/16 21: 24; Admin Dose 80 MG; Start 10/04/16 at 21:00 EZETIMIBE (Zetia) 10 mg DAILY PO Last administered on 10/12/16 09:35; Admin Dose 10 MG; Start 10/05/16 at 09:00 Hydralazine HCl (Apresoline) 100 mg TID PO Last administered on 10/12/16 09:34 ; Admin Dose 100 MG; Start 10/04/16 at 21:00 Isosorbide Dinitrate (Isordil) 20 mg TID PO Last administered on 10/12/16 09: 35; Admin Dose 20 MG; Start 10/04/16 at 21:00 Zolpidem Tartrate (Ambien) 10 mg QHS PRN PO INSOMNIA Last administered on 01:59; Admin Dose 10 MG; Start 10/04/16 at 19:00 Miscellaneous Information 1 ea NOTE XX ; Start 10/04/16 at 19:30 Glucose (Glutose) 15 gm Q15M PRN PO DECREASED GLUCOSE; Start 10/04/16 at 19:30 Glucose (Glutose) 22.5 gm Q15M PRN PO DECREASED GLUCOSE; Start 10/04/16 at 19:30 Dextrose (D50w Syringe) 25 ml Q15M PRN IV DECREASED GLUCOSE; Start 10/04/16 at 19:30 Dextrose (D50w Syringe) 50 ml Q15M PRN IV DECREASED GLUCOSE; Start 10/04/16 at 19:30 Glucagon (Glucagen) 1 mg Q15M PRN IM DECREASED GLUCOSE; Start 10/04/16 at 19:30 Glucose (Glutose) 15 gm Q15M PRN BUCCAL DECREASED GLUCOSE; Start 10/04/16 at 19: 30 Sertraline HCl (Zoloft) 50 mg DAILY@17 PO Last administered on 10/11/16 16:48 ; Admin Dose 50 MG; Start 10/05/16 at 17:00 Clonazepam (Klonopin) 0.5 mg Q8H PRN PO ANXIETY Last administered on 10/09/16 22:07; Admin Dose 0.5 MG; Start 10/05/16 at 10:30 Furosemide (Lasix) 20 mg DAILY PO Last administered on 10/12/16 09:35; Admin Dose 20 MG; Start 10/08/16 at 09:00 Famotidine (Pepcid) 20 mg DAILY PO Last administered on 10/12/16 09:35; Admin Dose 20 MG; Start 10/08/16 at 09:00 Thiamine HCl (Vitamin B1) 100 mg DAILY PO Last administered on 10/12/16 09:34 ; Admin Dose 100 MG; Start 10/08/16 at 11:00 Lactobacillus Acidophilus/ Rhamnosus (Culturelle) 1 cap BID PO Last administered on 10/12/16 09:34; Admin Dose 1 CAP; Start 10/08/16 at 11:00 Potassium Chloride (Potassium Chloride Pwd/Soln) 40 meq DAILY PO Last administered on 10/11/16 08:57; Admin Dose 40 MEQ; Start 10/08/16 at 11:00 Carvedilol (Coreg) 25 mg BID PO Last administered on 10/12/16 09:35; Admin Dose 25 MG; Start 10/09/16 at 07:59 Acetaminophen/ Hydrocodone Bitart ([place] (5/325)) 1 tab Q4H PRN PO PAIN LEVEL 4 -7 Last administered on 10/10/16 20:05; Admin Dose 1 TAB; Start 10/10/16 at 15: 30 Acetaminophen/ Hydrocodone Bitart ([place] (5/325)) 2 tab Q4H PRN PO PAIN LEVEL 7 -10; Start 10/10/16 at 15:30 Hydromorphone HCl (Dilaudid) 0.5 mg Q2H PRN IV PAIN Last administered on 05:57; Admin Dose 0.5 MG; Start 10/10/16 at 15:30 Hydromorphone HCl (Dilaudid) 1 mg Q2H PRN IV PAIN; Start 10/10/16 at 15:30 Docusate Sodium (Colace) 100 mg BID PRN PO CONSTIPATION; Start 10/10/16 at 15: 30 Bisacodyl (Dulcolax Supp) 10 mg BID PRN [place] CONSTIPATION; Start 10/10/16 at 15: 30 Sodium Biphosphate/ Sodium Phosphate (Fleet Enema) 133 ml BID PRN [place] CONSTIPATION; Start 10/10/16 at 15:30 Clopidogrel Bisulfate (plaVIX) 75 mg DAILY PO Last administered on 10/12/16 09 :34; Admin Dose 75 MG; Start 10/11/16 at 12:00 EMILY TREVIÑO Oct 12, 2016 10:11
--- NOTE | 2016-10-12 11:37 | DS ---
Date/Time of Note Date/Time of Note DATE: 10/12/16 TIME: 11:37 Discharge Summary Admission/Discharge Info Admit Date/Time Oct 05, 2016 at 12:04 Discharge Date/Time Discharge Diagnosis 1. Small bowel obstruction secondary to #2: Resolved 2. Incarcerated inguinal hernia status post reduction under anesthesia on admission and now s/p repair 10/10/16 3. Hypertension: controlled 4. History of CHF and recurrent flash pulmonary edema currently compensated 5. 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 History of carotid artery stenosis status post CEA 7. History of bilateral renal stenosis status post stents 8. Chronic kidney disease stage IV: Stable without acute abnormality 9. Chronic lung mass for which patient has refused workup and intervention repeatedly 10. Chronic cardiomyopathy and hx of VT likely ischemic status post AICD 11. JOEY contributing to #4: stable Hx of Present Illness His apartment is a 65-year-old male known to our service for recurrent admissions for flash pulmonary edema, hypertensive urgency, chronic kidney disease. It was thought that this episodes was secondary to her generalized anxiety disorder versus bilateral renal artery stenosis. He underwent renal artery stenting, but still had episode of flash pulmonary edema in which he went into respiratory failure and had to be endotracheally intubated. He was successfully managed and extubated and his family tells me that shortly after that admission he was seen by psychiatrist and started on medications for anxiety disorder since then he has been able to stay out of the hospital for the last 1 month. However since about 3 or 4 days ago the patient has been having nausea and vomiting and fixation of an inguinal hernia on the left. Symptoms have slowly worsened to the point where today his nausea and vomiting became intractable. Family brought him into the emergency room where a CAT scan of the abdomen showed small bowel obstruction at the level of distal ileum secondary to moderate left inguinal hernia for which strangulation could not be excluded. Incidentally though the CAT scan also showed extensive atherosclerotic vascular disease including multifocal chronic dissection in the distal thoracic aorta measuring 3.7 cm. At this time he is being taken to the operating room for emergent exploratory laparotomy and probable hernia repair. He is being admitted to the intensive care unit in the interim. Hospital Course await surgery review and recommendations Home Meds Active Scripts Paroxetine Hcl* (Paroxetine*) 10 Mg Tablet, 10 MG PO DAILY for 30 Days, TAB Prov:TRESSA RUIZ MD 09/06/16 Isosorbide Dinitrate* (Isosorbide Dinitrate*) 20 Mg Tablet, 20 MG PO TID for 30 Days, TAB Prov:TRESSA RUIZ MD 09/06/16 Hydralazine Hcl* (Apresoline*) 50 Mg Tab, 100 MG PO TID for 30 Days, TAB Prov:TRESSA RUIZ MD 09/06/16 Carvedilol* (Carvedilol*) 12.5 Mg Tablet, 12.5 MG PO BID for 30 Days, TAB Prov:TRESSA RUIZ MD 09/06/16 Atorvastatin* (Atorvastatin*) 80 Mg Tablet, 80 MG PO QHS for 30 Days, TAB Prov:TRESSA RUIZ MD 09/06/16 Aspirin* (Aspirin* Chew) 81 Mg Tab.chew, 81 MG PO DAILY, #30 TAB.CHEW Prov:GIA WILDER MD 03/07/16 Reported Medications Clonazepam* (Clonazepam*) 0.5 Mg Tablet, 0.5 MG PO Q8H for ANXIETY, TAB 10/04/16 Sertraline Hcl* (Sertraline Hcl*) 50 Mg Tablet, 50 MG PO DAILY, #30 TAB 10/04/16 Amiodarone Hcl* (Amiodarone Hcl*) 100 Mg Tablet, 100 MG PO DAILY, #30 TAB 08/30/16 Clopidogrel Bisulfate (Clopidogrel) 75 Mg Tablet, 75 MG PO DAILY, #30 TAB 08/16/16 Ezetimibe* (Zetia*) 10 Mg Tablet, 10 MG PO DAILY, TAB 05/21/16 Zolpidem Tartrate* (Zolpidem Tartrate*) 10 Mg Tablet, 10 MG PO QHS Y for INSOMNIA, #30 TAB 01/25/16 Primary Care Provider Nguyễn Zavala Pending Labs Laboratory Tests Test 10/12/16 07:07 10/12/16 07:10 White Blood Count 14.210^3/ul (4.8-10.8) Red Blood Count 3.0610^6/ul (4.70-6.10) Hemoglobin 9.7g/dl (14.0-18.0) Hematocrit 27.1% (42.0-52.0) Mean Corpuscular Volume 88.6fl (82.0-101.0) Mean Corpuscular Hemoglobin 31.7pg (29.0-33.0) Mean Corpuscular Hemoglobin Concent 35.8g/dl (32.0-37.0) Red Cell Distribution Width 13.3% (11.5-14.5) Platelet Count 16455^3/UL (140-415) Mean Platelet Volume 11.7fl (7.4-10.4) Neutrophils % 77.0% (39.0-77.0) Lymphocytes % 10.5% (15.0-51.0) Monocytes % 9.5% (0.0-11.0) Eosinophils % 1.1% (0.0-7.0) Basophils % 0.4% (0.0-2.0) Nucleated Red Blood Cells % 0.0/100WBC (0.0-0.0) Neutrophils # 10.910^3/ul (1.6-7.5) Lymphocytes # 1.510^3/ul (0.8-2.9) Monocytes # 1.410^3/ul (0.3-0.9) Eosinophils # 0.210^3/ul (0.0-0.5) Basophils # 0.110^3/ul (0.0-0.1) Nucleated Red Blood Cells # 0.010^3/ul (0.0-0.0) Calcium Level 8.9mg/dl (8.4-10.2) 8.9mg/dl (8.4-10.2) Phosphorus Level 3.1mg/dl (2.5-4.9) Magnesium Level 1.9mg/dl (1.7-2.5) Sodium Level 130mmol/L (135-144) Potassium Level 3.7mmol/L (3.5-5.1) Chloride Level 97mmol/L (97-110) Carbon Dioxide Level 28mmol/L (21-31) Anion Gap 9 (8-16) Blood Urea Nitrogen 16mg/dl (7-20) Creatinine 1.84mg/dl (0.61-1.24) Glucose Level 92mg/dl (70-220) SANJUANITA SPAULDING Oct 12, 2016 11:37
--- NOTE | 2016-10-12 11:48 | CONS ---
Date/Time of Note Date/Time of Note DATE: 10/12/16 TIME: 11:47 Consult Date/Type/Reason Admit Date/Time Oct 05, 2016 at 12:04 Initial Consult Date 10/05/16 Type of Consultation: Pulmonary Ordering Provider: SANJUANITA SPAULDING Subjective Patient comfortable this morning no new events Objective Vital Signs Date Time Temp Pulse Resp B/P Pulse Ox O2 Delivery O2 Flow Rate FiO2 10/12/16 08:30 71 10/12/16 06:51 98.1 18 132/60 92 10/11/16 19:54 Nasal Cannula 2.0 Intake and Output 10/11/16 10/11/16 10/12/16 15:00 23:00 07:00 Intake Total 750 ml 800 ml Output Total 700 ml 1500 ml Balance 50 ml -700 ml Exam GENERAL: Well-nourished well-developed gentleman comfortable at this VITAL SIGNS: per chart NECK: Supple. No JVD or lymphadenopathy. CARDIAC EXAM: S1, S2. No added sounds or murmurs. CHEST: clear bilaterally, No added sounds, rales or wheezes ABDOMEN: Soft, nontender. No guarding or rebound. EXTREMITIES: No cyanosis, clubbing or edema. NEUROLOGIC: Generalized weakness. No focal deficits. Results/Medications Result Diagram: 10/12/16 0707 10/12/16 0710 Results 24 hrs Laboratory Tests Test 10/12/16 07:07 10/12/16 07:10 White Blood Count 14.2 H Red Blood Count 3.06 L Hemoglobin 9.7 L Hematocrit 27.1 L Mean Corpuscular Volume 88.6 Mean Corpuscular Hemoglobin 31.7 Mean Corpuscular Hemoglobin Concent 35.8 Red Cell Distribution Width 13.3 Platelet Count 328 Mean Platelet Volume 11.7 H Neutrophils % 77.0 Lymphocytes % 10.5 L Monocytes % 9.5 Eosinophils % 1.1 Basophils % 0.4 Nucleated Red Blood Cells % 0.0 Neutrophils # 10.9 H Lymphocytes # 1.5 Monocytes # 1.4 H Eosinophils # 0.2 Basophils # 0.1 Nucleated Red Blood Cells # 0.0 Calcium Level 8.9 8.9 Phosphorus Level 3.1 Magnesium Level 1.9 Sodium Level 130 L Potassium Level 3.7 Chloride Level 97 Carbon Dioxide Level 28 Anion Gap 9 Blood Urea Nitrogen 16 Creatinine 1.84 H Glucose Level 92 Medications Current Medications Ondansetron HCl (Zofran Inj) 4 mg Q6H PRN IV NAUSEA AND/OR VOMITING; Start 10/04 at 19:00 Acetaminophen (Tylenol Tab) 650 mg Q6H PRN PO PAIN LEVEL 1-3 OR FEVER; Start at 19:00 Magnesium Hydroxide (Milk Of Mag) 30 ml DAILY PRN PO CONSTIPATION Last administered on 10/08/16 20:19; Admin Dose 30 ML; Start 10/04/16 at 19:00 Hydralazine HCl (Apresoline) 10 mg Q6H PRN IV ELEVATED BLOOD PRESSURE Last administered on 10/08/16 06:48; Admin Dose 10 MG; Start 10/04/16 at 19:00 Nitroglycerin (Nitroglycerin (Sl Tab) 0.4 Mg) 1 tab Q5M PRN SL ANGINA; Start at 19:00 Eye Lubricant (Artificial Tears Oph) 1 drop TID BOTH EYES Last administered on 10/12/16 09:36; Admin Dose 1 DROP; Start 10/04/16 at 21:00 Amiodarone HCl (Cordarone) 100 mg DAILY PO Last administered on 10/12/16 09:36 ; Admin Dose 100 MG; Start 10/05/16 at 09:00 Aspirin (Aspirin) 81 mg DAILY PO Last administered on 10/12/16 09:34; Admin Dose 81 MG; Start 10/05/16 at 09:00 Atorvastatin Calcium (Lipitor) 80 mg QHS PO Last administered on 10/11/16 21: 24; Admin Dose 80 MG; Start 10/04/16 at 21:00 EZETIMIBE (Zetia) 10 mg DAILY PO Last administered on 10/12/16 09:35; Admin Dose 10 MG; Start 10/05/16 at 09:00 Hydralazine HCl (Apresoline) 100 mg TID PO Last administered on 10/12/16 09:34 ; Admin Dose 100 MG; Start 10/04/16 at 21:00 Isosorbide Dinitrate (Isordil) 20 mg TID PO Last administered on 10/12/16 09: 35; Admin Dose 20 MG; Start 10/04/16 at 21:00 Zolpidem Tartrate (Ambien) 10 mg QHS PRN PO INSOMNIA Last administered on 01:59; Admin Dose 10 MG; Start 10/04/16 at 19:00 Miscellaneous Information 1 ea NOTE XX ; Start 10/04/16 at 19:30 Glucose (Glutose) 15 gm Q15M PRN PO DECREASED GLUCOSE; Start 10/04/16 at 19:30 Glucose (Glutose) 22.5 gm Q15M PRN PO DECREASED GLUCOSE; Start 10/04/16 at 19:30 Dextrose (D50w Syringe) 25 ml Q15M PRN IV DECREASED GLUCOSE; Start 10/04/16 at 19:30 Dextrose (D50w Syringe) 50 ml Q15M PRN IV DECREASED GLUCOSE; Start 10/04/16 at 19:30 Glucagon (Glucagen) 1 mg Q15M PRN IM DECREASED GLUCOSE; Start 10/04/16 at 19:30 Glucose (Glutose) 15 gm Q15M PRN BUCCAL DECREASED GLUCOSE; Start 10/04/16 at 19: 30 Sertraline HCl (Zoloft) 50 mg DAILY@17 PO Last administered on 10/11/16 16:48 ; Admin Dose 50 MG; Start 10/05/16 at 17:00 Clonazepam (Klonopin) 0.5 mg Q8H PRN PO ANXIETY Last administered on 10/09/16 22:07; Admin Dose 0.5 MG; Start 10/05/16 at 10:30 Furosemide (Lasix) 20 mg DAILY PO Last administered on 10/12/16 09:35; Admin Dose 20 MG; Start 10/08/16 at 09:00 Famotidine (Pepcid) 20 mg DAILY PO Last administered on 10/12/16 09:35; Admin Dose 20 MG; Start 10/08/16 at 09:00 Thiamine HCl (Vitamin B1) 100 mg DAILY PO Last administered on 10/12/16 09:34 ; Admin Dose 100 MG; Start 10/08/16 at 11:00 Lactobacillus Acidophilus/ Rhamnosus (Culturelle) 1 cap BID PO Last administered on 10/12/16 09:34; Admin Dose 1 CAP; Start 10/08/16 at 11:00 Potassium Chloride (Potassium Chloride Pwd/Soln) 40 meq DAILY PO Last administered on 10/11/16 08:57; Admin Dose 40 MEQ; Start 10/08/16 at 11:00 Carvedilol (Coreg) 25 mg BID PO Last administered on 10/12/16 09:35; Admin Dose 25 MG; Start 10/09/16 at 07:59 Acetaminophen/ Hydrocodone Bitart ([place] (5/325)) 1 tab Q4H PRN PO PAIN LEVEL 4 -7 Last administered on 10/10/16 20:05; Admin Dose 1 TAB; Start 10/10/16 at 15: 30 Acetaminophen/ Hydrocodone Bitart ([place] (5/325)) 2 tab Q4H PRN PO PAIN LEVEL 7 -10; Start 10/10/16 at 15:30 Hydromorphone HCl (Dilaudid) 0.5 mg Q2H PRN IV PAIN Last administered on 05:57; Admin Dose 0.5 MG; Start 10/10/16 at 15:30 Hydromorphone HCl (Dilaudid) 1 mg Q2H PRN IV PAIN; Start 10/10/16 at 15:30 Docusate Sodium (Colace) 100 mg BID PRN PO CONSTIPATION; Start 10/10/16 at 15: 30 Bisacodyl (Dulcolax Supp) 10 mg BID PRN [place] CONSTIPATION; Start 10/10/16 at 15: 30 Sodium Biphosphate/ Sodium Phosphate (Fleet Enema) 133 ml BID PRN [place] CONSTIPATION; Start 10/10/16 at 15:30 Clopidogrel Bisulfate (plaVIX) 75 mg DAILY PO Last administered on 10/12/16 09 :34; Admin Dose 75 MG; Start 10/11/16 at 12:00 Assessment/Plan Chief Complaint/Hosp Course IMP: Incarcerated inguinal hernia status post surgical repair yesterday Stable COPD Stable coronary artery disease with ischemic cardiomyopathy Chronic kidney disease RECS: ICS BD's PT/OT titrate off O2 surgical recs, advance diet encourage out of bed Agree with discharge planning Problems: MARY BARKER MD, [facility] Oct 12, 2016 11:47
[2016-10-12] MEDS: MAGNESIUM HYDROXIDE 30ML CUP PO PRN (12:55)
--- NOTE | 2016-10-12 15:18 | PN ---
Date/Time of Note Date/Time of Note DATE: 10/12/16 TIME: 15:12 Assessment/Plan Lines/Catheters IV Catheter Type (from Nrsg): Saline Lock Crespo in Place (from Nrsg): No Assessment/Plan Assessment/Plan [facility] Progress Note Date of Service: 10/12/16 Today's Impression & Plan: Overall doing well post op without major issues. No major wound problems. No indication for acute surgical intervention. I'm extremely pleased so far with his outcome. No obvious cardiopulmonary issues post op so far. His new abdominal pain can be from constipation (no BM for 2 days), but possibility of infection or other complications do exist. I do not see a reason to do more investigative testing, but would like to keep him inhouse one more day with aggressive bowel regimen to see if his pain improves. Discussed with patient and his and answered all questions. With above assessment, I've recommended the following for today: 1. Cont regular diet 2. Increase activity 3. Increase ICS 4. Labs in am 5. Aggressive bowel regimen 6. Possible d/c planning for 24-48 hrs from now pending other physicians' and providers' recommendations Thank you again for your great care of this very pleasant patient and wonderful family. If there are any questions, please feel free to call me at [phone]. Nature of Presenting Problem: High severity Disclaimer: Inadvertent spelling or grammatical errors are likely due to EHR/ dictation software use and do not reflect on the overall quality of patient care. Updated Clinical Summary: A very-pleasant 65-year-old gentleman with multiple comorbid issues including severe cardiopulmonary disease, presenting with a very difficult issue of small bowel obstruction in the setting of incarcerated left inguinal hernia containing small bowel. S/p an otherwise uncomplicated exam under anesthesia at [facility] 10/04/16 with successful reduction of left inguinal incarcerated region without any obvious evident complication. Patient was very carefully observed and fortunately remained stable and telemetry unit at [facility]. His small bowel obstruction resolved. He remained hemodynamically stable. He was evaluated by his drafter (cad) electrical, Dr. Zavala, as well as other specialists. After medical stabilization and after multidisciplinary discussion , we deemed the patient stable enough for definitive left inguinal hernia repair to reduce the chance of similar episodes from happening in the future. Comorbidities: 1. Left inguinal hernia, initially incarcerated and associated with small bowel obstruction, s/p an otherwise uncomplicated exam under anesthesia at [facility] 10/04/16 with successful reduction of left inguinal incarcerated region without any obvious evident complication; s/p an otherwise uncomplicated laparoscopic left inguinal hernia repair with mesh (Symbotex 10 cm x 15 cm) at [facility] 10/10/16 2. Coronary artery disease, status post CABG October 2015 with subsequent graft closure requiring PTCA with stenting 3. Ischemic cardiomyopathy: Ejection fraction approximately 20-25% 4. Status post ICD for secondary prevention 5. Severe atherosclerotic vascular disease 6. Peripheral vascular disease 7. Chronic kidney disease with renal insufficiency (creatinine between 2-1/2-3- 1/2) 8. Right-sided renal artery stenosis, status post bilateral renal artery stents and angioplasty in July 2016 9. Hypertension 10. Significant pulmonary disease with multiple admissions for lung problems including acute respiratory failure secondary to recurrent flash pulmonary edema and hypertensive emergency 11. Significant cardiac disease as above with multiple admissions for cardiac problems 12. Former smoker 13. 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 First-degree AV block, LAD, and left bundle branch block 15. Lesion of ramus coronary artery 16. History of shock 17. Hyperkalemia 18. Carotid stenosis, status post carotid endarterectomy 19. COPD 20. Extensive atherosclerotic vascular disease including ectasia of the distal thoracic aorta measuring up to 3.7 cm in multiple segments of intraluminal curvilinear calcifications suggesting multi focal chronic dissection (CT abdomen and pelvis [facility] 10/04/2016). 21. Cardiomegaly (CT abdomen and pelvis [facility] 10/04/2016). 22. Small nonobstructing bilateral renal calculi (CT abdomen and pelvis [facility] 10/04/2016). 23. Hyperuricemia Subjective: No major events or complaints; new left lower quadrant abd pain and under control with medications; no n/v/d; no sob or cp; + flatus; - BM for two days per his report; + activity Objective: Vitals: See below Exam: GENERAL: On exam, the patient was laying in bed and appeared to be comfortable and in no acute distress. ABDOMEN: Soft, mildly tender to palpation in the right lower quadrant and nondistended. Incision dressings d/c'd and incisions are clean, dry and intact without any evidence of obvious underlying erythema, edema, discharge, or hernia. There are no peritoneal signs or guarding. Area over the left inguinal region is non-tender and no bulge or other abnormality is seen. SKIN: Skin appears to be pink and feels warm to touch. NEUROLOGIC: Patient is awake, alert, and follows commands appropriately. Exam/Review of Systems Vital Signs Vitals Vital Signs Date Time Temp Pulse Resp B/P Pulse Ox O2 Delivery O2 Flow Rate FiO2 10/12/16 12:25 98.1 78 18 133/66 92 10/11/16 19:54 Nasal Cannula 2.0 Intake and Output 10/11/16 10/11/16 10/12/16 15:00 23:00 07:00 Intake Total 750 ml 800 ml Output Total 700 ml 1500 ml Balance 50 ml -700 ml Results Result Diagram: 10/12/16 0707 10/12/16 0710 BLESSING HINSON M.D. Oct 12, 2016 15:18
--- NOTE | 2016-10-12 16:58 | PN ---
Date/Time of Note Date/Time of Note DATE: 10/12/16 TIME: 16:56 Assessment/Plan VTE Prophylaxis VTE Prophylaxis Intervention: SCD's Lines/Catheters IV [facility] Type (from [facility] Urinary Cath still in place: No Assessment/Plan Assessment/Plan 1. Small bowel obstruction secondary to #2: Resolved 2. Incarcerated inguinal hernia status post reduction under anesthesia on admission and now s/p repair 10/10/16 3. Hypertension: controlled 4. History of CHF and recurrent flash pulmonary edema currently compensated 5. 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 History of carotid artery stenosis status post CEA 7. History of bilateral renal stenosis status post stents 8. Chronic kidney disease stage IV: Stable without acute abnormality 9. Chronic lung mass for which patient has refused workup and intervention repeatedly 10. Chronic cardiomyopathy and hx of VT likely ischemic status post AICD 11. JOEY contributing to #4: stable Plan: * Continue routine post op care / surgery wants to review for one more day * Antihypertensives being titrated by cardiology / Plavix resumed without incident * Re: ?dissection, May need repeat abdominal aortogram in a few months, good BP control for now , BB , supportive care * continue all other supportive care and pain control Subjective 24 Hr Interval Summary Free Text/Dictation patient still with abd pain, now trying to have BM, you removed Exam/Review of Systems Vital Signs Vitals Vital Signs Date Time Temp Pulse Resp B/P Pulse Ox O2 Delivery O2 Flow Rate FiO2 10/12/16 16:17 69 10/12/16 16:07 98.3 19 120/57 94 10/11/16 19:54 Nasal Cannula 2.0 Intake and Output 10/11/16 10/11/16 10/12/16 15:00 23:00 07:00 Intake Total 750 ml 800 ml Output Total 700 ml 1500 ml Balance 50 ml -700 ml Exam Constitutional: alert Head: normocephalic Neck: supple Respiratory: clear to auscultation Cardiovascular: regular rate and rhythm Gastrointestinal: bowel sounds (hypoactive), distended, soft, surgical scars ( clean and dry) Neurological: lethargic (mildly), nl mental status Results Result Diagram: 10/12/16 0707 10/12/16 0710 Results 24 hrs Laboratory Tests Test 10/12/16 07:07 10/12/16 07:10 White Blood Count 14.2 H Red Blood Count 3.06 L Hemoglobin 9.7 L Hematocrit 27.1 L Mean Corpuscular Volume 88.6 Mean Corpuscular Hemoglobin 31.7 Mean Corpuscular Hemoglobin Concent 35.8 Red Cell Distribution Width 13.3 Platelet Count 328 Mean Platelet Volume 11.7 H Neutrophils % 77.0 Lymphocytes % 10.5 L Monocytes % 9.5 Eosinophils % 1.1 Basophils % 0.4 Nucleated Red Blood Cells % 0.0 Neutrophils # 10.9 H Lymphocytes # 1.5 Monocytes # 1.4 H Eosinophils # 0.2 Basophils # 0.1 Nucleated Red Blood Cells # 0.0 Calcium Level 8.9 8.9 Phosphorus Level 3.1 Magnesium Level 1.9 Sodium Level 130 L Potassium Level 3.7 Chloride Level 97 Carbon Dioxide Level 28 Anion Gap 9 Blood Urea Nitrogen 16 Creatinine 1.84 H Glucose Level 92 Medications Medications Current Medications Ondansetron HCl (Zofran Inj) 4 mg Q6H PRN IV NAUSEA AND/OR VOMITING; Start 10/04 at 19:00 Acetaminophen (Tylenol Tab) 650 mg Q6H PRN PO PAIN LEVEL 1-3 OR FEVER; Start at 19:00 Magnesium Hydroxide (Milk Of Mag) 30 ml DAILY PRN PO CONSTIPATION Last administered on 10/12/16 12:55; Admin Dose 30 ML; Start 10/04/16 at 19:00 Hydralazine HCl (Apresoline) 10 mg Q6H PRN IV ELEVATED BLOOD PRESSURE Last administered on 10/08/16 06:48; Admin Dose 10 MG; Start 10/04/16 at 19:00 Nitroglycerin (Nitroglycerin (Sl Tab) 0.4 Mg) 1 tab Q5M PRN SL ANGINA; Start at 19:00 Eye Lubricant (Artificial Tears Oph) 1 drop TID BOTH EYES Last administered on 10/12/16 12:56; Admin Dose 1 DROP; Start 10/04/16 at 21:00 Amiodarone HCl (Cordarone) 100 mg DAILY PO Last administered on 10/12/16 09:36 ; Admin Dose 100 MG; Start 10/05/16 at 09:00 Aspirin (Aspirin) 81 mg DAILY PO Last administered on 10/12/16 09:34; Admin Dose 81 MG; Start 10/05/16 at 09:00 Atorvastatin Calcium (Lipitor) 80 mg QHS PO Last administered on 10/11/16 21: 24; Admin Dose 80 MG; Start 10/04/16 at 21:00 EZETIMIBE (Zetia) 10 mg DAILY PO Last administered on 10/12/16 09:35; Admin Dose 10 MG; Start 10/05/16 at 09:00 Hydralazine HCl (Apresoline) 100 mg TID PO Last administered on 10/12/16 12:56 ; Admin Dose 100 MG; Start 10/04/16 at 21:00 Isosorbide Dinitrate (Isordil) 20 mg TID PO Last administered on 10/12/16 12: 56; Admin Dose 20 MG; Start 10/04/16 at 21:00 Zolpidem Tartrate (Ambien) 10 mg QHS PRN PO INSOMNIA Last administered on 01:59; Admin Dose 10 MG; Start 10/04/16 at 19:00 Miscellaneous Information 1 ea NOTE XX ; Start 10/04/16 at 19:30 Glucose (Glutose) 15 gm Q15M PRN PO DECREASED GLUCOSE; Start 10/04/16 at 19:30 Glucose (Glutose) 22.5 gm Q15M PRN PO DECREASED GLUCOSE; Start 10/04/16 at 19:30 Dextrose (D50w Syringe) 25 ml Q15M PRN IV DECREASED GLUCOSE; Start 10/04/16 at 19:30 Dextrose (D50w Syringe) 50 ml Q15M PRN IV DECREASED GLUCOSE; Start 10/04/16 at 19:30 Glucagon (Glucagen) 1 mg Q15M PRN IM DECREASED GLUCOSE; Start 10/04/16 at 19:30 Glucose (Glutose) 15 gm Q15M PRN BUCCAL DECREASED GLUCOSE; Start 10/04/16 at 19: 30 Sertraline HCl (Zoloft) 50 mg DAILY@17 PO Last administered on 10/11/16 16:48 ; Admin Dose 50 MG; Start 10/05/16 at 17:00 Clonazepam (Klonopin) 0.5 mg Q8H PRN PO ANXIETY Last administered on 10/09/16 22:07; Admin Dose 0.5 MG; Start 10/05/16 at 10:30 Furosemide (Lasix) 20 mg DAILY PO Last administered on 10/12/16 09:35; Admin Dose 20 MG; Start 10/08/16 at 09:00 Famotidine (Pepcid) 20 mg DAILY PO Last administered on 10/12/16 09:35; Admin Dose 20 MG; Start 10/08/16 at 09:00 Thiamine HCl (Vitamin B1) 100 mg DAILY PO Last administered on 10/12/16 09:34 ; Admin Dose 100 MG; Start 10/08/16 at 11:00 Lactobacillus Acidophilus/ Rhamnosus (Culturelle) 1 cap BID PO Last administered on 10/12/16 09:34; Admin Dose 1 CAP; Start 10/08/16 at 11:00 Potassium Chloride (Potassium Chloride Pwd/Soln) 40 meq DAILY PO Last administered on 10/11/16 08:57; Admin Dose 40 MEQ; Start 10/08/16 at 11:00 Carvedilol (Coreg) 25 mg BID PO Last administered on 10/12/16 09:35; Admin Dose 25 MG; Start 10/09/16 at 07:59 Acetaminophen/ Hydrocodone Bitart ([place] (5/325)) 1 tab Q4H PRN PO PAIN LEVEL 4 -7 Last administered on 10/10/16 20:05; Admin Dose 1 TAB; Start 10/10/16 at 15: 30 Acetaminophen/ Hydrocodone Bitart ([place] (5/325)) 2 tab Q4H PRN PO PAIN LEVEL 7 -10; Start 10/10/16 at 15:30 Hydromorphone HCl (Dilaudid) 0.5 mg Q2H PRN IV PAIN Last administered on 05:57; Admin Dose 0.5 MG; Start 10/10/16 at 15:30 Hydromorphone HCl (Dilaudid) 1 mg Q2H PRN IV PAIN; Start 10/10/16 at 15:30 Docusate Sodium (Colace) 100 mg BID PRN PO CONSTIPATION; Start 10/10/16 at 15: 30 Bisacodyl (Dulcolax Supp) 10 mg BID PRN IN CONSTIPATION; Start 10/10/16 at 15: 30 Sodium Biphosphate/ Sodium Phosphate (Fleet Enema) 133 ml BID PRN IN CONSTIPATION Last administered on 10/12/16 15:46; Admin Dose 133 ML; Start 02/16 at 15:30 Clopidogrel Bisulfate (plaVIX) 75 mg DAILY PO Last administered on 10/12/16 09 :34; Admin Dose 75 MG; Start 10/11/16 at 12:00 SANJUANITA SPAULDING Oct 12, 2016 16:58
[2016-10-12] MEDS: SERTRALINE 50 MG TAB PO SCH (18:35)
[2016-10-12] MEDS: ATORVASTATIN 80 MG TAB PO SCH (21:44)
[2016-10-13] VITALS (7 sets, daily range): BP systolic 117–123; BP diastolic 56–60; PULSE 69–80; RESP 18–19
[2016-10-13 07:03] LABS: ADD SCAN DIFF NO
[2016-10-13 07:40] LABS: ALBUMIN 3.5 g/dl (3.3-4.9); ALBUMIN/GLOBULIN RATIO 1.4; BILIRUBIN,INDIRECT 0.8 mg/dl (0-1.1); BILIRUBIN,TOTAL 0.8 mg/dl (0.2-1.3); CREATININE 1.74 mg/dl (0.61-1.24); PHOSPHORUS 3.4 mg/dl (2.5-4.9); POTASSIUM 3.4 mmol/L (3.5-5.1)
[2016-10-13 07:45] LABS: INR 1.26; PROTIME 15.9 Sec (12.2-14.2); PT RATIO 1.2
[2016-10-13 07:46] LABS: PARTIAL THROMBOPLASTIN TIME 45.2 Sec (25.0-35.0)
[2016-10-13] MEDS: POTASSIUM CHLORIDE 20 MEQ POWDER FOR ORAL SOLN PO SCH (08:06)
[2016-10-13] MEDS: FUROSEMIDE 20 MG TAB PO SCH (08:07)
[2016-10-13] MEDS: ARTIFICIAL TEARS 15 ML OPH BOTH EYES SCH ×2 (08:07→12:20)
[2016-10-13] MEDS: ASPIRIN 81 MG TAB PO SCH (08:07)
[2016-10-13] MEDS: THIAMINE 100 MG TAB PO SCH (08:07)
[2016-10-13] MEDS: FAMOTIDINE 20 MG TAB PO SCH (08:08)
[2016-10-13] MEDS: ISOSORBIDE DINITRATE 20 MG TAB PO SCH ×2 (08:08→12:20)
[2016-10-13] MEDS: LACTOBACILLUS RHAMNOSUS CAP PO SCH (08:08)
[2016-10-13] MEDS: AMIODARONE 200 MG TAB PO SCH (08:08)
[2016-10-13] MEDS: CLOPIDOGREL 75 MG TAB PO SCH (08:08)
[2016-10-13] MEDS: EZETIMIBE 10 MG TAB PO SCH (08:08)
[2016-10-13] MEDS ORDERED: POTASSIUM CHLORIDE (SR) 20 MEQ TAB PO STA (09:03)
--- NOTE | 2016-10-13 09:05 | PN ---
Date/Time of Note Date/Time of Note DATE: 10/13/16 TIME: 09:05 Assessment/Plan VTE Prophylaxis VTE Prophylaxis Intervention: SCD's Lines/Catheters IV Catheter Type (from Nrsg): [facility] Urinary Cath still in place: No Assessment/Plan Assessment/Plan Hyponatremia possibly 2/2 over diuresis Possible d/c if cleared by surgery Exam/Review of Systems Vital Signs Vitals Vital Signs Date Time Temp Pulse Resp B/P Pulse Ox O2 Delivery O2 Flow Rate FiO2 10/13/16 08:00 73 10/13/16 06:55 98.1 19 123/59 94 10/11/16 19:54 Nasal Cannula 2.0 Intake and Output 10/12/16 10/12/16 10/13/16 15:00 23:00 07:00 Intake Total 500 ml Output Total 500 ml 450 ml Balance -500 ml 50 ml Results Result Diagram: 10/12/16 0707 10/13/16 0630 Results 24 hrs Laboratory Tests Test 10/13/16 06:30 Prothrombin Time 15.9 H Prothrombin Time Ratio 1.2 INR International Normalized Ratio 1.26 Activated Partial Thromboplast Time 45.2 H Sodium Level 127 L Potassium Level 3.4 L Chloride Level 95 L Carbon Dioxide Level 30 Anion Gap 5 L Blood Urea Nitrogen 17 Creatinine 1.74 H Glucose Level 118 Calcium Level 9.0 Phosphorus Level 3.4 Magnesium Level 2.0 Total Bilirubin 0.8 Direct Bilirubin 0.00 Indirect Bilirubin 0.8 Aspartate Amino Transf (AST/SGOT) 25 Alanine Aminotransferase (ALT/SGPT) 28 Alkaline Phosphatase 52 Total Protein 6.0 L Albumin 3.5 Globulin 2.50 Albumin/Globulin Ratio 1.40 Medications Medications Current Medications Ondansetron HCl (Zofran Inj) 4 mg Q6H PRN IV NAUSEA AND/OR VOMITING; Start 10/04 at 19:00 Acetaminophen (Tylenol Tab) 650 mg Q6H PRN PO PAIN LEVEL 1-3 OR FEVER; Start at 19:00 Magnesium Hydroxide (Milk Of Mag) 30 ml DAILY PRN PO CONSTIPATION Last administered on 10/12/16 12:55; Admin Dose 30 ML; Start 10/04/16 at 19:00 Hydralazine HCl (Apresoline) 10 mg Q6H PRN IV ELEVATED BLOOD PRESSURE Last administered on 10/08/16 06:48; Admin Dose 10 MG; Start 10/04/16 at 19:00 Nitroglycerin (Nitroglycerin (Sl Tab) 0.4 Mg) 1 tab Q5M PRN SL ANGINA; Start at 19:00 Eye Lubricant (Artificial Tears Oph) 1 drop TID BOTH EYES Last administered on 10/13/16 08:07; Admin Dose 1 DROP; Start 10/04/16 at 21:00 Amiodarone HCl (Cordarone) 100 mg DAILY PO Last administered on 10/13/16 08:08 ; Admin Dose 100 MG; Start 10/05/16 at 09:00 Aspirin (Aspirin) 81 mg DAILY PO Last administered on 10/13/16 08:07; Admin Dose 81 MG; Start 10/05/16 at 09:00 Atorvastatin Calcium (Lipitor) 80 mg QHS PO Last administered on 10/12/16 21: 44; Admin Dose 80 MG; Start 10/04/16 at 21:00 EZETIMIBE (Zetia) 10 mg DAILY PO Last administered on 10/13/16 08:08; Admin Dose 10 MG; Start 10/05/16 at 09:00 Hydralazine HCl (Apresoline) 100 mg TID PO Last administered on 10/13/16 08:08 ; Admin Dose 100 MG; Start 10/04/16 at 21:00 Isosorbide Dinitrate (Isordil) 20 mg TID PO Last administered on 10/13/16 08: 08; Admin Dose 20 MG; Start 10/04/16 at 21:00 Zolpidem Tartrate (Ambien) 10 mg QHS PRN PO INSOMNIA Last administered on 01:59; Admin Dose 10 MG; Start 10/04/16 at 19:00 Miscellaneous Information 1 ea NOTE XX ; Start 10/04/16 at 19:30 Glucose (Glutose) 15 gm Q15M PRN PO DECREASED GLUCOSE; Start 10/04/16 at 19:30 Glucose (Glutose) 22.5 gm Q15M PRN PO DECREASED GLUCOSE; Start 10/04/16 at 19:30 Dextrose (D50w Syringe) 25 ml Q15M PRN IV DECREASED GLUCOSE; Start 10/04/16 at 19:30 Dextrose (D50w Syringe) 50 ml Q15M PRN IV DECREASED GLUCOSE; Start 10/04/16 at 19:30 Glucagon (Glucagen) 1 mg Q15M PRN IM DECREASED GLUCOSE; Start 10/04/16 at 19:30 Glucose (Glutose) 15 gm Q15M PRN BUCCAL DECREASED GLUCOSE; Start 10/04/16 at 19: 30 Sertraline HCl (Zoloft) 50 mg DAILY@17 PO Last administered on 10/12/16 18:35 ; Admin Dose 50 MG; Start 10/05/16 at 17:00 Clonazepam (Klonopin) 0.5 mg Q8H PRN PO ANXIETY Last administered on 10/09/16 22:07; Admin Dose 0.5 MG; Start 10/05/16 at 10:30 Furosemide (Lasix) 20 mg DAILY PO Last administered on 10/13/16 08:07; Admin Dose 20 MG; Start 10/08/16 at 09:00 Famotidine (Pepcid) 20 mg DAILY PO Last administered on 10/13/16 08:08; Admin Dose 20 MG; Start 10/08/16 at 09:00 Thiamine HCl (Vitamin B1) 100 mg DAILY PO Last administered on 10/13/16 08:07 ; Admin Dose 100 MG; Start 10/08/16 at 11:00 Lactobacillus Acidophilus/ Rhamnosus (Culturelle) 1 cap BID PO Last administered on 10/13/16 08:08; Admin Dose 1 CAP; Start 10/08/16 at 11:00 Potassium Chloride (Potassium Chloride Pwd/Soln) 40 meq DAILY PO Last administered on 10/13/16 08:06; Admin Dose 40 MEQ; Start 10/08/16 at 11:00 Carvedilol (Coreg) 25 mg BID PO Last administered on 10/13/16 08:07; Admin Dose 25 MG; Start 10/09/16 at 07:59 Acetaminophen/ Hydrocodone Bitart ([place] (5/325)) 1 tab Q4H PRN PO PAIN LEVEL 4 -7 Last administered on 10/10/16 20:05; Admin Dose 1 TAB; Start 10/10/16 at 15: 30 Acetaminophen/ Hydrocodone Bitart ([place] (5/325)) 2 tab Q4H PRN PO PAIN LEVEL 7 -10; Start 10/10/16 at 15:30 Hydromorphone HCl (Dilaudid) 0.5 mg Q2H PRN IV PAIN Last administered on 05:57; Admin Dose 0.5 MG; Start 10/10/16 at 15:30 Hydromorphone HCl (Dilaudid) 1 mg Q2H PRN IV PAIN; Start 10/10/16 at 15:30 Docusate Sodium (Colace) 100 mg BID PRN PO CONSTIPATION; Start 10/10/16 at 15: 30 Bisacodyl (Dulcolax Supp) 10 mg BID PRN [place] CONSTIPATION; Start 10/10/16 at 15: 30 Sodium Biphosphate/ Sodium Phosphate (Fleet Enema) 133 ml BID PRN [place] CONSTIPATION Last administered on 10/12/16 15:46; Admin Dose 133 ML; Start 02/16 at 15:30 Clopidogrel Bisulfate (plaVIX) 75 mg DAILY PO Last administered on 10/13/16 08 :08; Admin Dose 75 MG; Start 10/11/16 at 12:00 SANJUANITA SPAULDING Oct 13, 2016 09:05
[2016-10-13 09:30] LABS: BASOPHILS % 0.2 % (0.0-2.0); EOSINOPHILS # 0.1 10^3/ul (0.0-0.5); HEMATOCRIT 28.9 % (42.0-52.0); HEMOGLOBIN 9.3 g/dl (14.0-18.0); LYMPHOCYTES # 1.6 10^3/ul (0.8-2.9); LYMPHOCYTES % 11.4 % (15.0-51.0); MEAN CORPUSCULAR HEMOGLOBIN 27.9 pg (29.0-33.0); MEAN CORPUSCULAR HGB CONC 32.2 g/dl (32.0-37.0); MEAN CORPUSCULAR VOLUME 86.8 fl (82.0-101.0); MEAN PLATELET VOLUME 11.4 fl (7.4-10.4); MONOCYTE # 1.2 10^3/ul (0.3-0.9); MONOCYTES % 8.8 % (0.0-11.0); NEUTROPHIL # 10.7 10^3/ul (1.6-7.5); NEUTROPHILS % 77.4 % (39.0-77.0); PLATELET COUNT 287 10^3/UL (140-415); RED BLOOD COUNT 3.33 10^6/ul (4.70-6.10); RED CELL DISTRIBUTION WIDTH 13.3 % (11.5-14.5); WHITE BLOOD COUNT 13.9 10^3/ul (4.8-10.8)
--- NOTE | 2016-10-13 11:25 | CONS ---
Date/Time of Note Date/Time of Note DATE: 10/13/16 TIME: 11:23 Assessment/Plan Assessment/Plan Chief Complaint/Hosp Course Hyponatremia: Pt is euvolemic by exam. Has been having significant pain for a few days so ?SIADH may be possible. SBO with incarcerated inguinal hernia: Resolved after hernia reduction under anesthesia. s/p successful laparoscopic mesh repair of hernia 10/10. h/o CAD s/p CABG/PCI: No e/o ischemia ICM (EF 20%): compensated Recurrent pulm edema: from HTN and renal artery stenosis as well as anxiety. No recurrence >1 month VT s/p ICD PVD s/p bilateral renal artery stenting and CEA CKD (baseline Cr mid 2s): currently better than baseline HTN: now better post-op. Anxiety driven -ok for d/c from my perspective. Same meds except for coreg is now 25mg BID (pt is aware). He will f/u with me next week with labs at that time to check renal function and sodium -coreg 25 mg BID -lasix 20mg PO daily -plavix 75mg daily -continue ASA -hydralazine 100mg TID -isordil 20mg TID Problems: Consultation Date/Type/Reason Admit Date/Time Oct 05, 2016 at 12:04 Initial Consult Date 10/05/16 Type of Consultation: Cardiology Referring Provider: SANJUANITA SPAULDING 24 HR Interval Summary Free Text/Dictation Finally had a BM. Abd pain and distension resolved. Wants to go home. Exam/Review of Systems Vital Signs Vitals Vital Signs Date Time Temp Pulse Resp B/P Pulse Ox O2 Delivery O2 Flow Rate FiO2 10/13/16 08:00 73 10/13/16 06:55 98.1 19 123/59 94 10/11/16 19:54 Nasal Cannula 2.0 Intake and Output 10/12/16 10/12/16 10/13/16 15:00 23:00 07:00 Intake Total 500 ml Output Total 500 ml 450 ml Balance -500 ml 50 ml Exam Constitutional: alert, oriented Psych: nl mood/affect, no complaints Head: atraumatic, normocephalic Neck: No jvd Respiratory: clear to auscultation Cardiovascular: regular rate and rhythm, No edema, No systolic murmur Gastrointestinal: non-tender, soft Neurological: nl mental status, nl speech Results Result Diagram: 10/13/16 0630 10/13/16 0630 Results 24 hrs Laboratory Tests Test 10/13/16 06:30 White Blood Count 13.9 H Red Blood Count 3.33 L Hemoglobin 9.3 L Hematocrit 28.9 L Mean Corpuscular Volume 86.8 Mean Corpuscular Hemoglobin 27.9 L Mean Corpuscular Hemoglobin Concent 32.2 Red Cell Distribution Width 13.3 Platelet Count 287 Mean Platelet Volume 11.4 H Neutrophils % 77.4 H Lymphocytes % 11.4 L Monocytes % 8.8 Eosinophils % 1.0 Basophils % 0.2 Nucleated Red Blood Cells % 0.0 Neutrophils # 10.7 H Lymphocytes # 1.6 Monocytes # 1.2 H Eosinophils # 0.1 Basophils # 0.0 Nucleated Red Blood Cells # 0.0 Prothrombin Time 15.9 H Prothrombin Time Ratio 1.2 INR International Normalized Ratio 1.26 Activated Partial Thromboplast Time 45.2 H Sodium Level 127 L Potassium Level 3.4 L Chloride Level 95 L Carbon Dioxide Level 30 Anion Gap 5 L Blood Urea Nitrogen 17 Creatinine 1.74 H Glucose Level 118 Calcium Level 9.0 Phosphorus Level 3.4 Magnesium Level 2.0 Total Bilirubin 0.8 Direct Bilirubin 0.00 Indirect Bilirubin 0.8 Aspartate Amino Transf (AST/SGOT) 25 Alanine Aminotransferase (ALT/SGPT) 28 Alkaline Phosphatase 52 Total Protein 6.0 L Albumin 3.5 Globulin 2.50 Albumin/Globulin Ratio 1.40 Medications Medications Current Medications Ondansetron HCl (Zofran Inj) 4 mg Q6H PRN IV NAUSEA AND/OR VOMITING; Start 10/04 at 19:00 Acetaminophen (Tylenol Tab) 650 mg Q6H PRN PO PAIN LEVEL 1-3 OR FEVER; Start at 19:00 Magnesium Hydroxide (Milk Of Mag) 30 ml DAILY PRN PO CONSTIPATION Last administered on 10/12/16 12:55; Admin Dose 30 ML; Start 10/04/16 at 19:00 Hydralazine HCl (Apresoline) 10 mg Q6H PRN IV ELEVATED BLOOD PRESSURE Last administered on 10/08/16 06:48; Admin Dose 10 MG; Start 10/04/16 at 19:00 Nitroglycerin (Nitroglycerin (Sl Tab) 0.4 Mg) 1 tab Q5M PRN SL ANGINA; Start at 19:00 Eye Lubricant (Artificial Tears Oph) 1 drop TID BOTH EYES Last administered on 10/13/16 08:07; Admin Dose 1 DROP; Start 10/04/16 at 21:00 Amiodarone HCl (Cordarone) 100 mg DAILY PO Last administered on 10/13/16 08:08 ; Admin Dose 100 MG; Start 10/05/16 at 09:00 Aspirin (Aspirin) 81 mg DAILY PO Last administered on 10/13/16 08:07; Admin Dose 81 MG; Start 10/05/16 at 09:00 Atorvastatin Calcium (Lipitor) 80 mg QHS PO Last administered on 10/12/16 21: 44; Admin Dose 80 MG; Start 10/04/16 at 21:00 EZETIMIBE (Zetia) 10 mg DAILY PO Last administered on 10/13/16 08:08; Admin Dose 10 MG; Start 10/05/16 at 09:00 Hydralazine HCl (Apresoline) 100 mg TID PO Last administered on 10/13/16 08:08 ; Admin Dose 100 MG; Start 10/04/16 at 21:00 Isosorbide Dinitrate (Isordil) 20 mg TID PO Last administered on 10/13/16 08: 08; Admin Dose 20 MG; Start 10/04/16 at 21:00 Zolpidem Tartrate (Ambien) 10 mg QHS PRN PO INSOMNIA Last administered on 01:59; Admin Dose 10 MG; Start 10/04/16 at 19:00 Miscellaneous Information 1 ea NOTE XX ; Start 10/04/16 at 19:30 Glucose (Glutose) 15 gm Q15M PRN PO DECREASED GLUCOSE; Start 10/04/16 at 19:30 Glucose (Glutose) 22.5 gm Q15M PRN PO DECREASED GLUCOSE; Start 10/04/16 at 19:30 Dextrose (D50w Syringe) 25 ml Q15M PRN IV DECREASED GLUCOSE; Start 10/04/16 at 19:30 Dextrose (D50w Syringe) 50 ml Q15M PRN IV DECREASED GLUCOSE; Start 10/04/16 at 19:30 Glucagon (Glucagen) 1 mg Q15M PRN IM DECREASED GLUCOSE; Start 10/04/16 at 19:30 Glucose (Glutose) 15 gm Q15M PRN BUCCAL DECREASED GLUCOSE; Start 10/04/16 at 19: 30 Sertraline HCl (Zoloft) 50 mg DAILY@17 PO Last administered on 10/12/16 18:35 ; Admin Dose 50 MG; Start 10/05/16 at 17:00 Clonazepam (Klonopin) 0.5 mg Q8H PRN PO ANXIETY Last administered on 10/09/16 22:07; Admin Dose 0.5 MG; Start 10/05/16 at 10:30 Furosemide (Lasix) 20 mg DAILY PO Last administered on 10/13/16 08:07; Admin Dose 20 MG; Start 10/08/16 at 09:00; Status Future Hold Famotidine (Pepcid) 20 mg DAILY PO Last administered on 10/13/16 08:08; Admin Dose 20 MG; Start 10/08/16 at 09:00 Thiamine HCl (Vitamin B1) 100 mg DAILY PO Last administered on 10/13/16 08:07 ; Admin Dose 100 MG; Start 10/08/16 at 11:00 Lactobacillus Acidophilus/ Rhamnosus (Culturelle) 1 cap BID PO Last administered on 10/13/16 08:08; Admin Dose 1 CAP; Start 10/08/16 at 11:00 Potassium Chloride (Potassium Chloride Pwd/Soln) 40 meq DAILY PO Last administered on 10/13/16 08:06; Admin Dose 40 MEQ; Start 10/08/16 at 11:00 Carvedilol (Coreg) 25 mg BID PO Last administered on 10/13/16 08:07; Admin Dose 25 MG; Start 10/09/16 at 07:59 Acetaminophen/ Hydrocodone Bitart ([place] (5/325)) 1 tab Q4H PRN PO PAIN LEVEL 4 -7 Last administered on 10/10/16 20:05; Admin Dose 1 TAB; Start 10/10/16 at 15: 30 Acetaminophen/ Hydrocodone Bitart ([place] (5/325)) 2 tab Q4H PRN PO PAIN LEVEL 7 -10; Start 10/10/16 at 15:30 Hydromorphone HCl (Dilaudid) 0.5 mg Q2H PRN IV PAIN Last administered on 05:57; Admin Dose 0.5 MG; Start 10/10/16 at 15:30 Hydromorphone HCl (Dilaudid) 1 mg Q2H PRN IV PAIN; Start 10/10/16 at 15:30 Docusate Sodium (Colace) 100 mg BID PRN PO CONSTIPATION; Start 10/10/16 at 15: 30 Bisacodyl (Dulcolax Supp) 10 mg BID PRN [place] CONSTIPATION; Start 10/10/16 at 15: 30 Sodium Biphosphate/ Sodium Phosphate (Fleet Enema) 133 ml BID PRN [place] CONSTIPATION Last administered on 10/12/16 15:46; Admin Dose 133 ML; Start 02/16 at 15:30 Clopidogrel Bisulfate (plaVIX) 75 mg DAILY PO Last administered on 10/13/16 08 :08; Admin Dose 75 MG; Start 10/11/16 at 12:00 EMILY TREVIÑO Oct 13, 2016 11:25
[2016-10-13] MEDS ORDERED: DOCU-216 PO (12:28)
[2016-10-13] MEDS ORDERED: CARV25TA79 PO (12:28)
--- NOTE | 2016-10-13 12:30 | PDOCDIS ---
Discharge Instructions DIAGNOSIS Discharge Diagnosis 1. Small bowel obstruction secondary to #2: Resolved 2. Incarcerated inguinal hernia status post reduction under anesthesia on admission and now s/p repair 10/10/16 3. Hypertension: controlled 4. History of CHF and recurrent flash pulmonary edema currently compensated 5. 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 History of carotid artery stenosis status post CEA 7. History of bilateral renal stenosis status post stents 8. Chronic kidney disease stage IV: Stable without acute abnormality 9. Chronic lung mass for which patient has refused workup and intervention repeatedly 10. Chronic cardiomyopathy and hx of VT likely ischemic status post AICD 11. 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 Also follow-up with surgery per his instructions. SANJUANITA SPAULDING Oct 13, 2016 12:30
--- NOTE | 2016-10-13 12:36 | DS ---
Date/Time of Note Date/Time of Note DATE: 10/13/16 TIME: 12:34 Discharge Summary Admission/Discharge Info Admit Date/Time Oct 05, 2016 at 12:04 Discharge Date/Time Discharge Diagnosis 1. Small bowel obstruction secondary to #2: Resolved 2. Incarcerated inguinal hernia status post reduction under anesthesia on admission and now s/p repair 10/10/16 3. Hypertension: controlled 4. History of CHF and recurrent flash pulmonary edema currently compensated 5. 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 History of carotid artery stenosis status post CEA 7. History of bilateral renal stenosis status post stents 8. Chronic kidney disease stage IV: Stable without acute abnormality 9. Chronic lung mass for which patient has refused workup and intervention repeatedly 10. Chronic cardiomyopathy and hx of VT likely ischemic status post AICD 11. JOEY contributing to #4: stable Patient Condition: Stable Consults Cardiology: carlos alberto Nephrology: Clint Surgery: Jeronimo . Procedures See hospital course . Hx of Present Illness This is a 65-year-old male known to our service for recurrent admissions for flash pulmonary edema, hypertensive urgency, chronic kidney disease. It was thought that this episodes was secondary to her generalized anxiety disorder versus bilateral renal artery stenosis. He underwent renal artery stenting, but still had episode of flash pulmonary edema in which he went into respiratory failure and had to be endotracheally intubated. He was successfully managed and extubated and his family tells me that shortly after that admission he was seen by psychiatrist and started on medications for anxiety disorder since then he has been able to stay out of the hospital for the last 1 month. However since about 3 or 4 days ago the patient has been having nausea and vomiting and fixation of an inguinal hernia on the left. Symptoms have slowly worsened to the point where today his nausea and vomiting became intractable. Family brought him into the emergency room where a CAT scan of the abdomen showed small bowel obstruction at the level of distal ileum secondary to moderate left inguinal hernia for which strangulation could not be excluded. Incidentally though the CAT scan also showed extensive atherosclerotic vascular disease including multifocal chronic dissection in the distal thoracic aorta measuring 3.7 cm. At this time he is being taken to the operating room for emergent exploratory laparotomy and probable hernia repair. He is being admitted to the intensive care unit in the interim. . Hospital Course 65-year-old male who was admitted because of abdominal pain and was found to have an obstructed left-sided inguinal hernia. The patient had multiple comorbidities including coronary artery disease and was on Plavix and hence he was taken immediately to the operating room for reduction under anesthesia of the hernia after which his Plavix was held for a few days and eventually went back to the operating room for repair of his hernia. Hernia repair was done laparoscopically October 10, 2016. Today's postoperative day 3 and the patient is doing very well. He is desirous of discharge. Is tolerating a diet, has had a bowel movement. Of note is that the initial CAT scan done on admission had shown consent for a chronic multifocal aortic dissection, however this is reviewed with cardiology and the patient recently had a detailed abdominal aortogram that showed bilateral renal artery stenosis and did undergo renal artery stenting a few months ago. At this time there is no evidence of dissection. Hence the tumbler machine operator helper felt radiology findings were likely erroneous, and even if he were not to goal of treatment was good blood pressure control and beta-silviano therapy which the patient was on. The recommendation is for a repeat aortogram in a few months to ensure that there is no worsening of symptoms if there are real and also to reevaluate presence or absence of dissection. The patient does have chronic kidney disease and is very sensitive to contrast as such repeat imaging has to be weighed in terms of benefits versus risks. He was followed in-house by cardiology as well as nephrology and he will continue his outpatient follow-up with his tumbler machine operator helper as well as his primary care physician and botany technician. In my opinion the patient is stable for discharge at this time. Discharge is pending surgical clearance. . Home Meds Active Scripts Docusate Sodium (Dok) 100 Mg Capsule, 100 MG PO BID for 7 Days, CAP Prov:SANJUANITA SPAULDING 10/13/16 Carvedilol* (Carvedilol*) 25 Mg Tablet, 25 MG PO BID for 30 Days, TAB 2 Refills Prov:SANJUANITA SPAULDING 10/13/16 Paroxetine Hcl* (Paroxetine*) 10 Mg Tablet, 10 MG PO DAILY for 30 Days, TAB Prov:TRESSA RUIZ MD 09/06/16 Isosorbide Dinitrate* (Isosorbide Dinitrate*) 20 Mg Tablet, 20 MG PO TID for 30 Days, TAB Prov:TRESSA RIUZ MD 09/06/16 Hydralazine Hcl* (Apresoline*) 50 Mg Tab, 100 MG PO TID for 30 Days, TAB Prov:TRESSA RUIZ MD 09/06/16 Carvedilol* (Carvedilol*) 12.5 Mg Tablet, 12.5 MG PO BID for 30 Days, TAB Prov:TRESSA RUIZ MD 09/06/16 Atorvastatin* (Atorvastatin*) 80 Mg Tablet, 80 MG PO QHS for 30 Days, TAB Prov:TRESSA RUIZ MD 09/06/16 Aspirin* (Aspirin* Chew) 81 Mg Tab.chew, 81 MG PO DAILY, #30 TAB.CHEW Prov:GIA WILDER MD 03/07/16 Reported Medications Clonazepam* (Clonazepam*) 0.5 Mg Tablet, 0.5 MG PO Q8H for ANXIETY, TAB 10/04/16 Sertraline Hcl* (Sertraline Hcl*) 50 Mg Tablet, 50 MG PO DAILY, #30 TAB 10/04/16 Amiodarone Hcl* (Amiodarone Hcl*) 100 Mg Tablet, 100 MG PO DAILY, #30 TAB 08/30/16 Clopidogrel Bisulfate (Clopidogrel) 75 Mg Tablet, 75 MG PO DAILY, #30 TAB 08/16/16 Ezetimibe* (Zetia*) 10 Mg Tablet, 10 MG PO DAILY, TAB 05/21/16 Zolpidem Tartrate* (Zolpidem Tartrate*) 10 Mg Tablet, 10 MG PO QHS Y for INSOMNIA, #30 TAB 01/25/16 Follow-up Plan See hospital course . Primary Care Provider Nguyễn Zavala Time spent on discharge: > 30 minutes Pending Labs Laboratory Tests Test 10/13/16 06:30 White Blood Count 13.910^3/ul (4.8-10.8) Red Blood Count 3.3310^6/ul (4.70-6.10) Hemoglobin 9.3g/dl (14.0-18.0) Hematocrit 28.9% (42.0-52.0) Mean Corpuscular Volume 86.8fl (82.0-101.0) Mean Corpuscular Hemoglobin 27.9pg (29.0-33.0) Mean Corpuscular Hemoglobin Concent 32.2g/dl (32.0-37.0) Red Cell Distribution Width 13.3% (11.5-14.5) Platelet Count 82051^3/UL (140-415) Mean Platelet Volume 11.4fl (7.4-10.4) Neutrophils % 77.4% (39.0-77.0) Lymphocytes % 11.4% (15.0-51.0) Monocytes % 8.8% (0.0-11.0) Eosinophils % 1.0% (0.0-7.0) Basophils % 0.2% (0.0-2.0) Nucleated Red Blood Cells % 0.0/100WBC (0.0-0.0) Neutrophils # 10.710^3/ul (1.6-7.5) Lymphocytes # 1.610^3/ul (0.8-2.9) Monocytes # 1.210^3/ul (0.3-0.9) Eosinophils # 0.110^3/ul (0.0-0.5) Basophils # 0.010^3/ul (0.0-0.1) Nucleated Red Blood Cells # 0.010^3/ul (0.0-0.0) Prothrombin Time 15.9Sec (12.2-14.2) Prothrombin Time Ratio 1.2 INR International Normalized Ratio 1.26 Activated Partial Thromboplast Time 45.2Sec (25.0-35.0) Sodium Level 127mmol/L (135-144) Potassium Level 3.4mmol/L (3.5-5.1) Chloride Level 95mmol/L (97-110) Carbon Dioxide Level 30mmol/L (21-31) Anion Gap 5 (8-16) Blood Urea Nitrogen 17mg/dl (7-20) Creatinine 1.74mg/dl (0.61-1.24) Glucose Level 118mg/dl (70-220) Calcium Level 9.0mg/dl (8.4-10.2) Phosphorus Level 3.4mg/dl (2.5-4.9) Magnesium Level 2.0mg/dl (1.7-2.5) Total Bilirubin 0.8mg/dl (0.2-1.3) Direct Bilirubin 0.00mg/dl (0.00-0.20) Indirect Bilirubin 0.8mg/dl (0-1.1) Aspartate Amino Transf (AST/SGOT) 25IU/L (15-46) Alanine Aminotransferase (ALT/SGPT) 28IU/L (13-69) Alkaline Phosphatase 52IU/L (42-121) Total Protein 6.0g/dl (6.1-8.1) Albumin 3.5g/dl (3.3-4.9) Globulin 2.50g/dl (1.3-3.2) Albumin/Globulin Ratio 1.40 SANJUANITA SPAULDING. Oct 13, 2016 12:36
--- NOTE | 2016-10-13 12:47 | CONS ---
Date/Time of Note Date/Time of Note DATE: 10/13/16 TIME: 12:47 Consult Date/Type/Reason Admit Date/Time Oct 05, 2016 at 12:04 Initial Consult Date 10/05/16 Type of Consultation: Pulmonary Ordering Provider: SANJUANITA SPAULDING Subjective Patient appears comfortable at rest no acute distress Objective Vital Signs Date Time Temp Pulse Resp B/P Pulse Ox O2 Delivery O2 Flow Rate FiO2 10/13/16 12:00 69 10/13/16 11:49 98.4 19 118/56 95 10/11/16 19:54 Nasal Cannula 2.0 Intake and Output 10/12/16 10/12/16 10/13/16 15:00 23:00 07:00 Intake Total 500 ml Output Total 500 ml 450 ml Balance -500 ml 50 ml Exam GENERAL: Well-nourished well-developed gentleman comfortable at this VITAL SIGNS: per chart NECK: Supple. No JVD or lymphadenopathy. CARDIAC EXAM: S1, S2. No added sounds or murmurs. CHEST: clear bilaterally, No added sounds, rales or wheezes ABDOMEN: Soft, nontender. No guarding or rebound. EXTREMITIES: No cyanosis, clubbing or edema. NEUROLOGIC: Generalized weakness. No focal deficits. Results/Medications Result Diagram: 10/13/16 0630 10/13/16 0630 Results 24 hrs Laboratory Tests Test 10/13/16 06:30 White Blood Count 13.9 H Red Blood Count 3.33 L Hemoglobin 9.3 L Hematocrit 28.9 L Mean Corpuscular Volume 86.8 Mean Corpuscular Hemoglobin 27.9 L Mean Corpuscular Hemoglobin Concent 32.2 Red Cell Distribution Width 13.3 Platelet Count 287 Mean Platelet Volume 11.4 H Neutrophils % 77.4 H Lymphocytes % 11.4 L Monocytes % 8.8 Eosinophils % 1.0 Basophils % 0.2 Nucleated Red Blood Cells % 0.0 Neutrophils # 10.7 H Lymphocytes # 1.6 Monocytes # 1.2 H Eosinophils # 0.1 Basophils # 0.0 Nucleated Red Blood Cells # 0.0 Prothrombin Time 15.9 H Prothrombin Time Ratio 1.2 INR International Normalized Ratio 1.26 Activated Partial Thromboplast Time 45.2 H Sodium Level 127 L Potassium Level 3.4 L Chloride Level 95 L Carbon Dioxide Level 30 Anion Gap 5 L Blood Urea Nitrogen 17 Creatinine 1.74 H Glucose Level 118 Calcium Level 9.0 Phosphorus Level 3.4 Magnesium Level 2.0 Total Bilirubin 0.8 Direct Bilirubin 0.00 Indirect Bilirubin 0.8 Aspartate Amino Transf (AST/SGOT) 25 Alanine Aminotransferase (ALT/SGPT) 28 Alkaline Phosphatase 52 Total Protein 6.0 L Albumin 3.5 Globulin 2.50 Albumin/Globulin Ratio 1.40 Medications Current Medications Ondansetron HCl (Zofran Inj) 4 mg Q6H PRN IV NAUSEA AND/OR VOMITING; Start 10/04 at 19:00 Acetaminophen (Tylenol Tab) 650 mg Q6H PRN PO PAIN LEVEL 1-3 OR FEVER; Start at 19:00 Magnesium Hydroxide (Milk Of Mag) 30 ml DAILY PRN PO CONSTIPATION Last administered on 10/12/16 12:55; Admin Dose 30 ML; Start 10/04/16 at 19:00 Hydralazine HCl (Apresoline) 10 mg Q6H PRN IV ELEVATED BLOOD PRESSURE Last administered on 10/08/16 06:48; Admin Dose 10 MG; Start 10/04/16 at 19:00 Nitroglycerin (Nitroglycerin (Sl Tab) 0.4 Mg) 1 tab Q5M PRN SL ANGINA; Start at 19:00 Eye Lubricant (Artificial Tears Oph) 1 drop TID BOTH EYES Last administered on 10/13/16 12:20; Admin Dose 1 DROP; Start 10/04/16 at 21:00 Amiodarone HCl (Cordarone) 100 mg DAILY PO Last administered on 10/13/16 08:08 ; Admin Dose 100 MG; Start 10/05/16 at 09:00 Aspirin (Aspirin) 81 mg DAILY PO Last administered on 10/13/16 08:07; Admin Dose 81 MG; Start 10/05/16 at 09:00 Atorvastatin Calcium (Lipitor) 80 mg QHS PO Last administered on 10/12/16 21: 44; Admin Dose 80 MG; Start 10/04/16 at 21:00 EZETIMIBE (Zetia) 10 mg DAILY PO Last administered on 10/13/16 08:08; Admin Dose 10 MG; Start 10/05/16 at 09:00 Hydralazine HCl (Apresoline) 100 mg TID PO Last administered on 10/13/16 12:19 ; Admin Dose 100 MG; Start 10/04/16 at 21:00 Isosorbide Dinitrate (Isordil) 20 mg TID PO Last administered on 10/13/16 12: 20; Admin Dose 20 MG; Start 10/04/16 at 21:00 Zolpidem Tartrate (Ambien) 10 mg QHS PRN PO INSOMNIA Last administered on 01:59; Admin Dose 10 MG; Start 10/04/16 at 19:00 Miscellaneous Information 1 ea NOTE XX ; Start 10/04/16 at 19:30 Glucose (Glutose) 15 gm Q15M PRN PO DECREASED GLUCOSE; Start 10/04/16 at 19:30 Glucose (Glutose) 22.5 gm Q15M PRN PO DECREASED GLUCOSE; Start 10/04/16 at 19:30 Dextrose (D50w Syringe) 25 ml Q15M PRN IV DECREASED GLUCOSE; Start 10/04/16 at 19:30 Dextrose (D50w Syringe) 50 ml Q15M PRN IV DECREASED GLUCOSE; Start 10/04/16 at 19:30 Glucagon (Glucagen) 1 mg Q15M PRN IM DECREASED GLUCOSE; Start 10/04/16 at 19:30 Glucose (Glutose) 15 gm Q15M PRN BUCCAL DECREASED GLUCOSE; Start 10/04/16 at 19: 30 Sertraline HCl (Zoloft) 50 mg DAILY@17 PO Last administered on 10/12/16 18:35 ; Admin Dose 50 MG; Start 10/05/16 at 17:00 Clonazepam (Klonopin) 0.5 mg Q8H PRN PO ANXIETY Last administered on 10/09/16 22:07; Admin Dose 0.5 MG; Start 10/05/16 at 10:30 Furosemide (Lasix) 20 mg DAILY PO Last administered on 10/13/16 08:07; Admin Dose 20 MG; Start 10/08/16 at 09:00; Status Future Hold Famotidine (Pepcid) 20 mg DAILY PO Last administered on 10/13/16 08:08; Admin Dose 20 MG; Start 10/08/16 at 09:00 Thiamine HCl (Vitamin B1) 100 mg DAILY PO Last administered on 10/13/16 08:07 ; Admin Dose 100 MG; Start 10/08/16 at 11:00 Lactobacillus Acidophilus/ Rhamnosus (Culturelle) 1 cap BID PO Last administered on 10/13/16 08:08; Admin Dose 1 CAP; Start 10/08/16 at 11:00 Potassium Chloride (Potassium Chloride Pwd/Soln) 40 meq DAILY PO Last administered on 10/13/16 08:06; Admin Dose 40 MEQ; Start 10/08/16 at 11:00 Carvedilol (Coreg) 25 mg BID PO Last administered on 10/13/16 08:07; Admin Dose 25 MG; Start 10/09/16 at 07:59 Acetaminophen/ Hydrocodone Bitart (Tyner (5/325)) 1 tab Q4H PRN PO PAIN LEVEL 4 -7 Last administered on 10/10/16 20:05; Admin Dose 1 TAB; Start 10/10/16 at 15: 30 Acetaminophen/ Hydrocodone Bitart (Tyner (5/325)) 2 tab Q4H PRN PO PAIN LEVEL 7 -10; Start 10/10/16 at 15:30 Hydromorphone HCl (Dilaudid) 0.5 mg Q2H PRN IV PAIN Last administered on 05:57; Admin Dose 0.5 MG; Start 10/10/16 at 15:30 Hydromorphone HCl (Dilaudid) 1 mg Q2H PRN IV PAIN; Start 10/10/16 at 15:30 Docusate Sodium (Colace) 100 mg BID PRN PO CONSTIPATION; Start 10/10/16 at 15: 30 Bisacodyl (Dulcolax Supp) 10 mg BID PRN [place] CONSTIPATION; Start 10/10/16 at 15: 30 Sodium Biphosphate/ Sodium Phosphate (Fleet Enema) 133 ml BID PRN [place] CONSTIPATION Last administered on 10/12/16 15:46; Admin Dose 133 ML; Start 02/16 at 15:30 Clopidogrel Bisulfate (plaVIX) 75 mg DAILY PO Last administered on 10/13/16 08 :08; Admin Dose 75 MG; Start 10/11/16 at 12:00 Assessment/Plan Chief Complaint/Hosp Course IMP: Incarcerated inguinal hernia status post surgical repair yesterday Stable COPD Stable coronary artery disease with ischemic cardiomyopathy Chronic kidney disease RECS: ICS BD's PT/OT titrate off O2 surgical recs, advance diet encourage out of bed Agree with discharge planning Problems: MARY BARKER MD, [facility] Oct 13, 2016 12:47
--- NOTE | 2016-10-13 14:54 | PN ---
Date/Time of Note Date/Time of Note DATE: 10/13/16 TIME: 14:03 Assessment/Plan Lines/Catheters IV Catheter Type (from Nrsg): Saline Lock Crespo in Place (from Nrsg): No Assessment/Plan Assessment/Plan [facility] Progress Note Date of Service: 10/13/16 Today's Impression & Plan: Overall doing well post op without major issues. Abdominal pain seemed to have resolved after BM (? constipation related). Abd appears benign. No major wound problems. No indication for acute surgical intervention. Can d/c home. Discussed with patient and his and answered all questions. Also d/w team. With above assessment, I've recommended the following for today: 1. D/c home 2. D/c instructions: "Please call [phone] if any of fever, nausea, vomiting, discharge from wound, wound redness, increase or sudden pain, blood in stool or vomit, or any other unusual signs or symptoms. Also, please call the same number in a few days to schedule an appointment for your follow up visit. Patient may remove dressings tomorrow. Showers OK starting tomorrow. No swimming , hot tub or bath for 2 weeks. No lifting more than 25 lbs for 8 weeks." Thank you again for your great care of this very pleasant patient and wonderful family. If there are any questions, please feel free to call me at [phone]. Nature of Presenting Problem: High severity Disclaimer: Inadvertent spelling or grammatical errors are likely due to EHR/ dictation software use and do not reflect on the overall quality of patient care. Updated Clinical Summary: A very-pleasant 65-year-old gentleman with multiple comorbid issues including severe cardiopulmonary disease, presenting with a very difficult issue of small bowel obstruction in the setting of incarcerated left inguinal hernia containing small bowel. S/p an otherwise uncomplicated exam under anesthesia at [facility] 10/04/16 with successful reduction of left inguinal incarcerated region without any obvious evident complication. Patient was very carefully observed and fortunately remained stable and telemetry unit at [facility]. His small bowel obstruction resolved. He remained hemodynamically stable. He was evaluated by his aerial sprayer, Dr. Zavala, as well as other specialists. After medical stabilization and after multidisciplinary discussion , we deemed the patient stable enough for definitive left inguinal hernia repair to reduce the chance of similar episodes from happening in the future. Comorbidities: 1. Left inguinal hernia, initially incarcerated and associated with small bowel obstruction, s/p an otherwise uncomplicated exam under anesthesia at [facility] 10/04/16 with successful reduction of left inguinal incarcerated region without any obvious evident complication; s/p an otherwise uncomplicated laparoscopic left inguinal hernia repair with mesh (Symbotex 10 cm x 15 cm) at [facility] 10/10/16 2. Coronary artery disease, status post CABG October 2015 with subsequent graft closure requiring PTCA with stenting 3. Ischemic cardiomyopathy: Ejection fraction approximately 20-25% 4. Status post ICD for secondary prevention 5. Severe atherosclerotic vascular disease 6. Peripheral vascular disease 7. Chronic kidney disease with renal insufficiency (creatinine between 2-1/2-3- 1/2) 8. Right-sided renal artery stenosis, status post bilateral renal artery stents and angioplasty in July 2016 9. Hypertension 10. Significant pulmonary disease with multiple admissions for lung problems including acute respiratory failure secondary to recurrent flash pulmonary edema and hypertensive emergency 11. Significant cardiac disease as above with multiple admissions for cardiac problems 12. Former smoker 13. 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 First-degree AV block, LAD, and left bundle branch block 15. Lesion of ramus coronary artery 16. History of shock 17. Hyperkalemia 18. Carotid stenosis, status post carotid endarterectomy 19. COPD 20. Extensive atherosclerotic vascular disease including ectasia of the distal thoracic aorta measuring up to 3.7 cm in multiple segments of intraluminal curvilinear calcifications suggesting multi focal chronic dissection (CT abdomen and pelvis [facility] 10/04/2016). 21. Cardiomegaly (CT abdomen and pelvis [facility] 10/04/2016). 22. Small nonobstructing bilateral renal calculi (CT abdomen and pelvis [facility] 10/04/2016). 23. Hyperuricemia Subjective: No major events or complaints; no abd pain and under control with medications; no n/v/d; no sob or cp; + flatus; + BM; + activity Objective: Vitals: See below Exam: GENERAL: On exam, the patient was laying in bed and appeared to be comfortable and in no acute distress. ABDOMEN: Soft, nontender and nondistended. Incisions are clean, dry and intact without any evidence of obvious underlying erythema, edema, discharge, or hernia. There are no peritoneal signs or guarding. Area over the left inguinal region is non-tender and no bulge or other abnormality is seen. SKIN: Skin appears to be pink and feels warm to touch. NEUROLOGIC: Patient is awake, alert, and follows commands appropriately. Exam/Review of Systems Vital Signs Vitals Vital Signs Date Time Temp Pulse Resp B/P Pulse Ox O2 Delivery O2 Flow Rate FiO2 10/13/16 12:00 69 10/13/16 11:49 98.4 19 118/56 95 10/11/16 19:54 Nasal Cannula 2.0 Intake and Output 10/12/16 10/12/16 10/13/16 15:00 23:00 07:00 Intake Total 500 ml Output Total 500 ml 450 ml Balance -500 ml 50 ml Results Result Diagram: 10/13/16 0630 10/13/16 0630 BLESSING HINSON M.D. Oct 13, 2016 14:53
== END 2016-10-13 14:10 | disposition home or self-care (01) | DRG 350 ==
LOC: E/R 15:35 → SDS 20:24 → ICU 20:24 → SDS 10-05 12:03 → ICU 10-05 12:04 → TEL 10-05 14:50
PROVIDERS: ADMIT Internal Medicine; ATTEND Internal Medicine
PROC: 0YU64JZ Supplement Left Inguinal Region with Synthetic Substitute, Percutaneous Endoscopic Approach (ICD-10-PCS; principal; 2016-10-10 07:30)
DX: K40.30 Unilateral inguinal hernia, with obstruction, without gangrene, not specified as recurrent (principal); I71.01 Dissection of thoracic aorta; I13.0 Hypertensive heart and chronic kidney disease with heart failure and stage 1 through stage 4 chronic kidney disease, or unspecified chronic kidney disease; I50.22 Chronic systolic (congestive) heart failure; N18.4 Chronic kidney disease, stage 4 (severe); I25.10 Atherosclerotic heart disease of native coronary artery without angina pectoris; E87.5 Hyperkalemia; I25.5 Ischemic cardiomyopathy; J44.9 Chronic obstructive pulmonary disease, unspecified; E11.22 Type 2 diabetes mellitus with diabetic chronic kidney disease; F41.1 Generalized anxiety disorder; Z79.4 Long term (current) use of insulin; Z79.02 Long term (current) use of antithrombotics/antiplatelets; Z79.82 Long term (current) use of aspirin; Z87.891 Personal history of nicotine dependence; Z95.1 Presence of aortocoronary bypass graft; Z95.810 Presence of automatic (implantable) cardiac defibrillator; Z95.5 Presence of coronary angioplasty implant and graft
CPT/HCPCS: 36415; 71010; 74000; 74176; 80048; 80053; 80061; 81003; 82310; 82962; 83036; 83605; 83690; 83735; 83880; 84100; 84439; 84443; 85025; 85610; 85730; 86850; 86900; 86901; 87081; 92526; 92610; 93005; 94664; 96374; 96375; 97116; 97161; 97530; J1940; C9113; J0360; J0690; J1170; J1644; J1650; J1815; J2250; J2270; J2370; J2405; J2543; J2710; J3010; J3480; J7040; J7999

== ENCOUNTER 2016-11-01 15:25 | Outpatient (CLI) | payer MEDICARE, OTHER ==
[~2016-11-01] VITALS: Ht 167.6 cm; Wt 63.2 kg
[~2016-11-01 15:25] MED LIST changes: -CARV12.579 PO; +CARV25TA79 PO; +CLON0.5T4 PO; +DOCU-216 PO; +SERT50TA6 PO
[2016-11-01 15:35] VITALS: BP 127/58; PULSE 58; RESP 18; Ht 167.6 cm; Wt 63.2 kg
--- NOTE | 2016-11-01 16:26 | PN ---
Date/Time of Note Date/Time of Note DATE: 11/01/16 TIME: 16:19 Assessment/Plan Assessment/Plan Assessment/Plan [facility] Progress Note Date of Service: 11/01/16 Today's Impression & Plan: Overall doing remarkably well post op without major issues. No evidence of major postoperative complication or surgical site infection. Lightheadedness can be expected after the amount of stress that the patient went through and should be temporary. I instructed the patient's family to return into the hospital or to see me if the symptoms continue. Otherwise I am extremely pleased by the patient's outcome and at this point do not see any need for further surgical intervention but with absolute need for careful outpatient cardiology consultation as well as primary care. Explained to patient and family and answered all questions to the best my ability. They appeared to understand and agreed with the plans. With above assessment, I've recommended the following for today: 1. F/u with pcp and with cardiology 2. F/u with us prn Thank you again for your great care of this very pleasant patient and wonderful family. If there are any questions, please feel free to call me at [phone]. Nature of Presenting Problem: High severity Disclaimer: Inadvertent spelling or grammatical errors are likely due to EHR/ dictation software use and do not reflect on the overall quality of patient care. Updated Clinical Summary: A very-pleasant 65-year-old gentleman with multiple comorbid issues including severe cardiopulmonary disease, presenting with a very difficult issue of small bowel obstruction in the setting of incarcerated left inguinal hernia containing small bowel. S/p an otherwise uncomplicated exam under anesthesia at [facility] 10/04/16 with successful reduction of left inguinal incarcerated region without any obvious evident complication. Patient was very carefully observed and fortunately remained stable and telemetry unit at [facility]. His small bowel obstruction resolved. He remained hemodynamically stable. He was evaluated by his marketing data specialist, Dr. Zavala, as well as other specialists. After medical stabilization and after multidisciplinary discussion , we deemed the patient stable enough for definitive left inguinal hernia repair to reduce the chance of similar episodes from happening in the future. Discharged home 10/13/2016. Comorbidities: 1. Left inguinal hernia, initially incarcerated and associated with small bowel obstruction, s/p an otherwise uncomplicated exam under anesthesia at [facility] 10/04/16 with successful reduction of left inguinal incarcerated region without any obvious evident complication; s/p an otherwise uncomplicated laparoscopic left inguinal hernia repair with mesh (Symbotex 10 cm x 15 cm) at [facility] 10/10/16 2. Coronary artery disease, status post CABG October 2015 with subsequent graft closure requiring PTCA with stenting 3. Ischemic cardiomyopathy: Ejection fraction approximately 20-25% 4. Status post ICD for secondary prevention 5. Severe atherosclerotic vascular disease 6. Peripheral vascular disease 7. Chronic kidney disease with renal insufficiency (creatinine between 2-1/2-3- 1/2) 8. Right-sided renal artery stenosis, status post bilateral renal artery stents and angioplasty in July 2016 9. Hypertension 10. Significant pulmonary disease with multiple admissions for lung problems including acute respiratory failure secondary to recurrent flash pulmonary edema and hypertensive emergency 11. Significant cardiac disease as above with multiple admissions for cardiac problems 12. Former smoker 13. 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 First-degree AV block, LAD, and left bundle branch block 15. Lesion of ramus coronary artery 16. History of shock 17. Hyperkalemia 18. Carotid stenosis, status post carotid endarterectomy 19. COPD 20. Extensive atherosclerotic vascular disease including ectasia of the distal thoracic aorta measuring up to 3.7 cm in multiple segments of intraluminal curvilinear calcifications suggesting multi focal chronic dissection (CT abdomen and pelvis [facility] 10/04/2016). 21. Cardiomegaly (CT abdomen and pelvis [facility] 10/04/2016). 22. Small nonobstructing bilateral renal calculi (CT abdomen and pelvis [facility] 10/04/2016). 23. Hyperuricemia Subjective: No major events or complaints since discharge other than above; no abd pain and no longer taking pain medications; no n/v/d; no sob or cp; + flatus; + BM; + activity Objective: Vitals: See below Exam: GENERAL: On exam, the patient was sitting in a chair and appeared to be comfortable and in no acute distress. ABDOMEN: Soft, nontender and nondistended. Incisions are clean, dry and intact without any evidence of obvious underlying erythema, edema, discharge, or hernia. There are no peritoneal signs or guarding. Area over the left inguinal region is non-tender and no bulge or other abnormality is seen. SKIN: Skin appears to be pink and feels warm to touch. NEUROLOGIC: Patient is awake, alert, and follows commands appropriately. Exam/Review of Systems Vital Signs Vitals Vital Signs Date Time Temp Pulse Resp B/P Pulse Ox O2 Delivery O2 Flow Rate FiO2 11/01/16 15:35 98.0 58 18 127/58 99 Room Air BLESSING HINSON M.D. Nov 01, 2016 16:26
== END 2016-11-01 16:47 | disposition home or self-care (01) ==
LOC: HPC 15:25
PROVIDERS: ATTEND Transplant Surgery
DX: Z09 Encounter for follow-up examination after completed treatment for conditions other than malignant neoplasm (principal); Z87.19 Personal history of other diseases of the digestive system; I25.10 Atherosclerotic heart disease of native coronary artery without angina pectoris; Z95.5 Presence of coronary angioplasty implant and graft; Z95.1 Presence of aortocoronary bypass graft; Z95.810 Presence of automatic (implantable) cardiac defibrillator; I70.90 Unspecified atherosclerosis; I25.5 Ischemic cardiomyopathy; I73.9 Peripheral vascular disease, unspecified; I12.9 Hypertensive chronic kidney disease with stage 1 through stage 4 chronic kidney disease, or unspecified chronic kidney disease; N18.9 Chronic kidney disease, unspecified; Z81.2 Family history of tobacco abuse and dependence; J39.8 Other specified diseases of upper respiratory tract; I44.0 Atrioventricular block, first degree; I44.7 Left bundle-branch block, unspecified; E87.5 Hyperkalemia; Z82.49 Family history of ischemic heart disease and other diseases of the circulatory system; J44.9 Chronic obstructive pulmonary disease, unspecified; I77.810 Thoracic aortic ectasia; E79.0 Hyperuricemia without signs of inflammatory arthritis and tophaceous disease; I51.7 Cardiomegaly; N20.0 Calculus of kidney
CPT/HCPCS: G0463

== ENCOUNTER 2017-02-28 12:59 | Inpatient (IN) | payer MEDICARE, OTHER ==
[~2017-02-28] VITALS: Ht 162.6 cm; Wt 63.0 kg
[2017-02-28] MEDS ORDERED: FUROSEMIDE 40 MG INJ IV STA (13:46)
[2017-02-28 14:29] LABS: BASOPHIL # 0.1 10^3/ul (0.0-0.1); BASOPHILS % 0.6 % (0.0-2.0); EOSINOPHILS % 0.4 % (0.0-7.0); HEMATOCRIT 32.8 % (42.0-52.0); LYMPHOCYTES % 9.5 % (15.0-51.0); MEAN CORPUSCULAR HEMOGLOBIN 22.9 pg (29.0-33.0); MEAN CORPUSCULAR HGB CONC 30.5 g/dl (32.0-37.0); MEAN CORPUSCULAR VOLUME 75.2 fl (82.0-101.0); MEAN PLATELET VOLUME 9.8 fl (7.4-10.4); MONOCYTE # 1.3 10^3/ul (0.3-0.9); MONOCYTES % 12.3 % (0.0-11.0); NEUTROPHIL # 7.8 10^3/ul (1.6-7.5); NEUTROPHILS % 76.5 % (39.0-77.0); PLATELET COUNT 395 10^3/UL (140-415); RED BLOOD COUNT 4.36 10^6/ul (4.70-6.10); RED CELL DISTRIBUTION WIDTH 18.4 % (11.5-14.5); WHITE BLOOD COUNT 10.1 10^3/ul (4.8-10.8)
--- NOTE | 2017-02-28 14:31 | RADRPT ---
PROCEDURE: XR Chest. CLINICAL INDICATION: Chest pain TECHNIQUE: Single view of the chest was obtained COMPARISON: October 04, 2016 FINDINGS: The trachea is midline. The cardiac silhouette and pulmonary lady are prominent. There is marked int erval enlargement of large right upper lobe mass, now measuring 10.4 x 8.4 cm. Interval development of right lower lobe infiltrate and right-sided pleural effusion. IMPRESSION: 1. THERE IS MARKED ENLARGEMENT OF PREVIOUSLY NOTED LARGE RIGHT UPPER LOBE MASS, NOW MEASURING 10.4 X 8.[address] CM. RECOMMEND FOLLOW-UP CT SCAN OF THE CHEST WITH IV CONTRAST. ALTHOUGH FINDINGS LIKELY REPRESE NT WORSENING RIGHT UPPER LOBE LUNG MASS, VASCULAR ABNORMALITY IS NOT COMPLETELY EXCLUDED. 2. Cardiomegaly and pulmonary vascular congestion. 3. Interval development of right lower lobe infiltrate and small right pleural effusion. RPTAT: AAPP Physician Blue Date Time Electronically viewed and signed by Physician Blue on 02/28/2017 14:31 THI/
[2017-02-28 14:47] LABS: ALBUMIN 3.6 g/dl (3.3-4.9); BILIRUBIN,INDIRECT 0.7 mg/dl (0-1.1); BILIRUBIN,TOTAL 0.7 mg/dl (0.2-1.3); CALCIUM 9.1 mg/dl (8.4-10.2); CREATININE 1.86 mg/dl (0.61-1.24); POTASSIUM 3.7 mmol/L (3.5-5.1); TOTAL PROTEIN 7.2 g/dl (6.1-8.1)
[2017-02-28 14:58] LABS: TROPONIN-I 0.071 ng/ml (0.00-0.12)
[2017-02-28] MEDS ORDERED: HYDR100T25 PO (15:25)
--- NOTE | 2017-02-28 15:28 | ERD ---
ER Documentation Chief Complaint Chief Complaint sob x 5 days HPI This is a 66-year-old male with a history of congestive heart failure, cardiac stents and coronary artery bypass graft. The patient says he is gradually getting more short of breath over the past 5 days. He saw his stave saw operator today and sent here for admission to the hospital for congestive heart failure exacerbation. The patient is having dyspnea on exertion and orthopnea. His baseline is that he can walk around some shortness of breath but is getting worse. He states that he has had no cough no fever no upper respiratory symptoms. Denies any chest pain or exertional angina. He denies knowledge of any pulmonary tumor ROS All systems reviewed and are negative except as per history of present illness. Medications Home Meds Active Scripts Docusate Sodium (Dok) 100 Mg Capsule, 100 MG PO BID for 7 Days, CAP Prov:SANJUANITA SPAULDING 10/13/16 Carvedilol* (Carvedilol*) 25 Mg Tablet, 25 MG PO BID for 30 Days, TAB 2 Refills Prov:SANJUANITA SPAULDING 10/13/16 Paroxetine Hcl* (Paroxetine*) 10 Mg Tablet, 10 MG PO DAILY for 30 Days, TAB Prov:TRESSA RUIZ MD 09/06/16 Isosorbide Dinitrate* (Isosorbide Dinitrate*) 20 Mg Tablet, 20 MG PO TID for 30 Days, TAB Prov:TRESSA RUIZ MD 09/06/16 Hydralazine Hcl* (Apresoline*) 50 Mg Tab, 100 MG PO TID for 30 Days, TAB Prov:TRESSA RUIZ MD 09/06/16 Atorvastatin* (Atorvastatin*) 80 Mg Tablet, 80 MG PO QHS for 30 Days, TAB Prov:TRESSA RUIZ MD 09/06/16 Aspirin* (Aspirin* Chew) 81 Mg Tab.chew, 81 MG PO DAILY, #30 TAB.CHEW Prov:GIA WILDER MD 03/07/16 Reported Medications Clonazepam* (Clonazepam*) 0.5 Mg Tablet, 0.5 MG PO Q8H for ANXIETY, TAB 10/04/16 Sertraline Hcl* (Sertraline Hcl*) 50 Mg Tablet, 50 MG PO DAILY, #30 TAB 10/04/16 Amiodarone Hcl* (Amiodarone Hcl*) 100 Mg Tablet, 100 MG PO DAILY, #30 TAB 08/30/16 Clopidogrel Bisulfate (Clopidogrel) 75 Mg Tablet, 75 MG PO DAILY, #30 TAB 08/16/16 Ezetimibe* (Zetia*) 10 Mg Tablet, 10 MG PO DAILY, TAB 05/21/16 Zolpidem Tartrate* (Zolpidem Tartrate*) 10 Mg Tablet, 10 MG PO QHS Y for INSOMNIA, #30 TAB 01/25/16 Allergies Allergies: Coded Allergies: No Known Allergy (Unverified , 10/10/16) PMhx/Soc History of Surgery: Yes Anesthesia Reaction: No Hx Neurological Disorder: No Hx Respiratory Disorders: Yes Hx Cardiac Disorders: Yes Hx Psychiatric Problems: No Hx Miscellaneous Medical Probl: Yes (see PT note) Hx Alcohol Use: No Hx Substance Use: No Hx Tobacco Use: No FmHx Family History: No coronary disease Physical Exam Vitals Vital Signs Date Time Temp Pulse Resp B/P Pulse Ox O2 Delivery O2 Flow Rate FiO2 02/28/17 14:00 2 02/28/17 13:01 99.2 81 20 128/60 90 Physical Exam Const: Well-developed, well-nourished Head: Atraumatic, normocephalic Eyes: Normal Conjunctiva, PERRLA, EOMI, normal sclera, no nystagmus ENT: Normal External Ears, Nose and Mouth, moist mucus membranes. Neck: Full range of motion. No meningismus, no lymphadenopathy. Resp: Bilateral diffuse rhonchi and decreased breath sounds in the bases right more than left palpable left upper chest pacemaker] Cardio: Regular rate and rhythm, no murmurs, S1 S2 present Abd: Soft, non tender x 4, non distended. Normal bowel sounds, no guarding or rebound, no pulsitile abdominal masses or bruits Skin: No petechiae or rashes, no ecchymosis , no maculopapular rash Back: No midline or flank tenderness Ext: No cyanosis, or edema, FROM x 4, normal inspection, neurovascularly intact x 4 Neur: Awake and alert, STR 5/5 x 4, sensation intact x 4, no focal findings, cerebellum intact Psych: Normal Mood and Affect Result Diagram: 02/28/17 1400 02/28/17 1400 Results 24 hrs Laboratory Tests Test 02/28/17 14:00 White Blood Count 10.110^3/ul Red Blood Count 4.3610^6/ul Hemoglobin 10.0g/dl Hematocrit 32.8% Mean Corpuscular Volume 75.2fl Mean Corpuscular Hemoglobin 22.9pg Mean Corpuscular Hemoglobin Concent 30.5g/dl Red Cell Distribution Width 18.4% Platelet Count 62076^3/UL Mean Platelet Volume 9.8fl Neutrophils % 76.5% Lymphocytes % 9.5% Monocytes % 12.3% Eosinophils % 0.4% Basophils % 0.6% Nucleated Red Blood Cells % 0.0/100WBC Neutrophils # 7.810^3/ul Lymphocytes # 1.010^3/ul Monocytes # 1.310^3/ul Eosinophils # 0.010^3/ul Basophils # 0.110^3/ul Nucleated Red Blood Cells # 0.010^3/ul Sodium Level 141mmol/L Potassium Level 3.7mmol/L Chloride Level 101mmol/L Carbon Dioxide Level 28mmol/L Anion Gap 16 Blood Urea Nitrogen 35mg/dl Creatinine 1.86mg/dl Glucose Level 104mg/dl Calcium Level 9.1mg/dl Total Bilirubin 0.7mg/dl Direct Bilirubin 0.00mg/dl Indirect Bilirubin 0.7mg/dl Aspartate Amino Transf (AST/SGOT) 33IU/L Alanine Aminotransferase (ALT/SGPT) 48IU/L Alkaline Phosphatase 113IU/L Troponin I 0.071ng/ml B-Type Natriuretic Peptide 29239KA/ML Total Protein 7.2g/dl Albumin 3.6g/dl Globulin 3.60g/dl Albumin/Globulin Ratio 1.00 Current Medications Medications (Trade) Dose Ordered Sig/Deanna Route PRN Reason Start Time Stop Time Status Last Admin Dose Admin Furosemide (Lasix) 40 mg ONCE STAT IV 02/28/17 13:46 02/28/17 13:48 DC 02/28/17 14:03 Procedures/MDM PROCEDURE: XR Chest. CLINICAL INDICATION: Chest pain TECHNIQUE: Single view of the chest was obtained COMPARISON: October 04, 2016 FINDINGS: The trachea is midline. The cardiac silhouette and pulmonary lady are prominent. There is marked interval enlargement of large right upper lobe mass, now measuring 10.4 x 8.4 cm. Interval development of right lower lobe infiltrate and right-sided pleural effusion. IMPRESSION: 1. THERE IS MARKED ENLARGEMENT OF PREVIOUSLY NOTED LARGE RIGHT UPPER LOBE MASS, NOW MEASURING 10.4 X 8.4 CM. RECOMMEND FOLLOW-UP CT SCAN OF THE CHEST WITH IV CONTRAST. ALTHOUGH FINDINGS LIKELY REPRESENT WORSENING RIGHT UPPER LOBE LUNG MASS, VASCULAR ABNORMALITY IS NOT COMPLETELY EXCLUDED. 2. Cardiomegaly and pulmonary vascular congestion. 3. Interval development of right lower lobe infiltrate and small right pleural effusion. RPTAT: AAPP Christopher Sweet Physician Date Time Electronically viewed and signed by Physician Blue on 02/28/2017 14:31 JL/ CC: ELADIO CONTEH DO EKG: Rate/Rhythm: Normal sinus rhythm with left axis deviation and right bundle branch block, LVH QRS, ST, QT: NORMAL AL, wide QRS, QT] Impression: Abnormal EKG Patient will be admitted to the hospital for CHF exacerbation as well as having a growing large right upper lobe mass which needs to be evaluated by CT scan Departure Diagnosis: Primary Impression: Congestive heart failure Congestive heart failure type: unspecified congestive heart failure type Congestive heart failure chronicity: acute on chronic Qualified Code: I50.9 - Acute on chronic congestive heart failure, unspecified congestive heart failure type Additional Impression: Lung mass Condition: Fair ELADIO CONTEH DO Feb 28, 2017 15:28
[2017-02-28] MEDS ORDERED: FURO20TA3 PO (15:29)
[2017-02-28] MEDS ORDERED: SOD CHLORIDE 0.9% 1,000 ML IV SCH (15:33)
[2017-02-28] MEDS ORDERED: ACETAMINOPHEN 325 MG TAB PO PRN (16:00)
[2017-02-28] MEDS ORDERED: ONDANSETRON 4 MG INJ IV PRN (16:00)
--- NOTE | 2017-02-28 17:21 | HP ---
Date/Time of Note Date/Time of Note DATE: 02/28/17 TIME: 17:11 Assessment/Plan VTE Prophylaxis VTE Prophylaxis Intervention: LMWH Lines/Catheters IV C[facility]ter [facility]from [facility] Assessment/Plan Chief Complaint/Hosp Course 66 yo male with h/o chronic systolic CHF, expanding lung mass concerning for malignancy who presents with acute on chronic decompensated CHF and acute hypoxic respiratory failure Acute systolic CHF exacerbation: - Patient mildly hypervolemic on exam, continue diuresis with IV lasix 40 BID - Continue BB, ANNE-I CKD III, renal artery stenosis s/p stents: - Stable Lungs mass: - Patient denies interest in workup. Enlarging mass surely contributing somewhat to his dyspnea CAD: - Continue aspirin, plavix and statin h/o incarcerated hernia repair Microcytic anemia: - Check iron stores Discharge when euvolemic Problems: HPI/ROS Admit Date/Time Admit Date/Time Hx of Present Illness 66 yo male with h/o chronic systolic CHF, lung mass of unclear etiology who presents with SOB x a few days Known CHF, has had numerous admissions for exacerbations. Also has an upper lobe lung mass concerning for malignancy for which he has refused workup. Takes lasix 20 mg BID, adherent. Despite this has developed worsening SOB over past few days. Went to [facility] for appointment, referred to ED Here XR shows enlarging mass and CHF exacerbation Given IV lasix, O2 Feels a bit better Spoke about his lung mass. Again denies any interest in knowing what it is. Worried it may be cancer and states he woudl not want treatment regardless PMH/Family/Social Past Surgical History Past Surgical Hx: coronary bypass surgery, other Exam/Review of Systems Vital Signs Vitals Vital Signs Date Time Temp Pulse Resp B/P Pulse Ox O2 Delivery O2 Flow Rate FiO2 02/28/17 16:58 99.0 76 18 132/64 95 Nasal Cannula 2.0 Exam Exam AOx3 Resting comfortably in NAD ++ JVD Lungs with good air entry, mild wheeze surroudnign mass Nonlabored ICD in chest, RRR No peripheral edema Labs Result Diagram: 02/28/17 1400 02/28/17 1400 ARIANNA LIM MD Feb 28, 2017 17:21
[2017-02-28] MEDS: FUROSEMIDE 40 MG INJ IV SCH (17:43)
[2017-02-28] MEDS: clonAZEPAM 0.5 MG TAB PO SCH (17:43)
[2017-02-28 20:03] VITALS: TEMP 98.3
[2017-02-28 20:20] VITALS: BP 128/59; RESP 20
[2017-02-28 20:26] VITALS: PULSE 81
[2017-02-28 21:00] VITALS: Ht 162.6 cm; Wt 63.0 kg
[2017-02-28] MEDS ORDERED: FUROSEMIDE 20 MG TAB PO SCH (21:00)
[2017-02-28] MEDS: DOCUSATE SODIUM 100 MG CAP PO SCH (21:31)
[2017-02-28] MEDS: ISOSORBIDE DINITRATE 20 MG TAB PO SCH (21:31)
[2017-02-28] MEDS: ATORVASTATIN 80 MG TAB PO SCH (21:32)
[2017-02-28] MEDS: ZOLPIDEM 5 MG TAB PO PRN (22:15)
[2017-02-28 23:47] VITALS: BP 119/58; RESP 20
--- NOTE | 2017-02-28 23:48 | CONS ---
DATE OF ADMISSION: 02/28/2017 DATE OF CONSULTATION: REASON FOR CONSULTATION: Acute kidney injury. PHYSICIAN REQUESTING CONSULT: Dr. Zavala HISTORY OF PRESENT ILLNESS: This is a 66-year-old male with past medical history of chronic kidney disease stage IIIB/IV, with a baseline creatinine around 1.5 to 2.0 mg/dL, history of ischemic cardi omyopathy with ejection fraction of 20%, history of renal artery stenosis, status post stent placeme nt, history of refractory hypertension, history of dyslipidemia, history of flash pulmonary edema, w ho presented to [facility] due to worsening shortness of breath. The patient was seen by his outpatient marketing support assistant, Dr. Zavala, was noted to have increased shortness of breath , lower extremity edema and was brought over to [facility] for admission for CHF e xacerbation. Upon arrival, the patient had imaging studies which showed marked enlargement of previ ously noted large right upper lobe mass, cardiomegaly, vascular congestion. The patient, in the [facility], received diuretic therapy and antihypertensive medications. In terms of patient's tanika l history, the patient has a baseline creatinine between 1.5 and 2.0 mg/dL. The patient's creatinin e is currently near previous baseline. There have been no reports of any hemoptysis, hematemesis or hematochezia. PAST MEDICAL HISTORY: As stated above, history of coronary artery disease, history of CHF, history of chronic kidney disease stage IIIB/IV, history of renal artery stenosis, history of lung mass. PAST SURGICAL HISTORY: Status post PCI, status post renal artery stent placement. FAMILY HISTORY: Noncontributory. SOCIAL HISTORY: Does not actively drink, smoke, do drugs. MEDICATIONS: The patient's medications have been reviewed. REVIEW OF SYSTEMS: A 14-point review of systems was conducted. Pertinent positives stated in HPI, otherwise negative. PHYSICAL EXAMINATION: VITAL SIGNS: Blood pressure is 149/80, respirations 18, pulse 76, temperature 99.0. HEENT: Head is normocephalic. NECK: Supple. HEART: Regular rate. LUNGS: Show diminished breath sounds at the base. ABDOMEN: Soft, nontender to palpation. No rebound or guarding. EXTREMITIES: Negative for clubbing or cyanosis. Positive edema. DERMATOLOGIC: No rashes. MUSCULOSKELETAL: No joint effusions. NEUROLOGIC: No focal deficits. LABORATORY DATA: Shows sodium 141, potassium 3.7, BUN 35, creatinine 1.86. BNP 27,000, white count 10.1, hemoglobin 10.0, platelet count is 395. ASSESSMENT AND PLAN: This is a 66-year-old male who presents with: 1. Nonoliguric acute kidney injury on top of chronic kidney disease with previous baseline creatini ne of 1.5 to 2.0 mg/dL. Etiology of current acute kidney injury is likely due to hemodynamics. The patient's renal function is near baseline. Plan at this point, is to check UA with microanalysis. We will check urine electrolytes. The patient is currently on diuretic therapy and monitor renal f unction closely. Otherwise, continue supportive care, renally dose all meds, avoid nephrotoxins. 2. Acute congestive heart failure exacerbation. Underlying etiology may be due to progression of d isease or dietary noncompliance. Patient is currently on diuretic therapy. We will continue. Defe r to cardiology for direct management. 3. History of renal artery stenosis, status post stent placement. Continue to monitor. Continue a ntiplatelet therapy. 4. Hypertension. Continue current blood pressure regimen. 5. Anemia. Monitor hemoglobin and hematocrit levels. 6. Mineral bone disorder. Monitor calcium and phosphorus levels. 7. Coronary artery disease status post PCI. Continue medical management. 8. Ischemic cardiomyopathy. Continue current treatment plan. 9. Arrhythmia, status post ICD placement. 10. Lung mass with underlying progression, underlying etiology is unclear. Our previous concern wa s for possibility of pheochromocytoma or primary lung neoplasm. Would recommend a CT scan and possi ble biopsy. Thank you, Dr. Zavala, for this interesting consult. It will be a pleasure to follow patient wi th you throughout the hospital course. Dictated By: MARILYN HUFF DO NR/NTS Conf#: [id number] DID#: [id number] CC: ARIANNA LIM MD; EMILY ZAVALA MD;*EndCC*
[2017-03-01] VITALS (13 sets, daily range): BP systolic 85–129; BP diastolic 37–62; PULSE 69–75; RESP 16–20
[2017-03-01] MEDS: clonAZEPAM 0.5 MG TAB PO SCH ×4 (00:47→17:35)
[2017-03-01] MEDS: FUROSEMIDE 40 MG INJ IV SCH (05:57)
[2017-03-01 08:03] LABS: ADD UMIC NO; UR ASCORBIC ACID NEGATIVE (NEGATIVE); UR BILIRUBIN (Dip) NEGATIVE (NEGATIVE); UR BLOOD (Dip) NEGATIVE (NEGATIVE); UR CLARITY CLEAR (CLEAR); UR COLOR YELLOW (YELLOW); UR GLUCOSE (Dip) NEGATIVE (NEGATIVE); UR KETONES (Dip) NEGATIVE (NEGATIVE); UR LEUKOCYTE ESTERASE (Dip) NEGATIVE Leu/ul (NEGATIVE); UR NITRITE (Dip) NEGATIVE (NEGATIVE); UR TOTAL PROTEIN (Dip) NEGATIVE (NEGATIVE); UR UROBILINOGEN (Dip) NEGATIVE (NEGATIVE)
--- NOTE | 2017-03-01 08:58 | CONS ---
Date/Time of Note Date/Time of Note DATE: 03/01/17 TIME: 08:49 Assessment/Plan Assessment/Plan Chief Complaint/Hosp Course Acute on chronic systolic heart failure: Significant decompensation in clinic but now diuresed very well and close to baseline. RUL pulmonary mass: definitely worrisome for malignancy. Has been known since 2014 and pt refused workup. Has been losing weight recently and the mass has enlarged. Still undecided about workup CAD s/p CABG s/p PCI 02/2016 ICM (EF 20%) Recurrent pulm edema ICD for secondary prevention PVD s/p bilateral renal artery stenting and CEA CKD (baseline Cr 1.5-2) HTN -decrease lasix to 20mg PO BID which should be his new home dose -RUL mass workup if agreeable, otherwise likely d/c tomorrow -continue ASA, plavix -lipitor, zetia -coreg, hydralazine, isordil -amiodarone Problems: Consultation Date/Type/Reason Admit Date/Time Date of Consultation: Mar 01, 2017 Reason for Consultation CHF Referring Provider: ARIANNA LIM MD Hx of Present Illness 65 yo M well known to me with h/o CAD s/p CABG s/p PCI, ICM (EF 20%), recurrent pulm edema, ICD, PVD s/p bilateral renal artery stenting and CEA, CKD (baseline Cr 1.5-2), HTN, RUL pulmonary mass which he has repeatedly refused workup for, who presented to my clinic yesterday with 10 days of worsening SOB, MURPHY, edema, orthopnea and was found to have decompensated heart failure for which he was sent to the ED for admission. Since admission he has received lasix 40mg IV x 3 with good diuresis and significant improvement in symptoms and exam findings. Currently no SOB. CXR showed enlargement of the RUL mass. He is still undecided about further workup. per HPI Past Medical History per HPI Past Surgical History Past Surgical Hx: coronary bypass surgery, other Social History Smoking Status: Former smoker Exam/Review of Systems Vital Signs Vitals Vital Signs Date Time Temp Pulse Resp B/P Pulse Ox O2 Delivery O2 Flow Rate FiO2 03/01/17 08:00 75 03/01/17 07:42 98.0 16 129/62 93 02/28/17 21:00 3.0 02/28/17 18:20 Nasal Cannula Intake and Output 02/28/17 02/28/17 03/01/17 15:00 23:00 07:00 Intake Total 300 ml Output Total 300 ml 885 ml 900 ml Balance -300 ml -885 ml -600 ml Exam Constitutional: alert, oriented Psych: nl mood/affect, no complaints Head: atraumatic, normocephalic Neck: jvd (7-8cm) Respiratory: crackles/rales, No clear to auscultation (mild crackles, RUL ronchi ) Cardiovascular: regular rate and rhythm, systolic murmur (2/6 HSM), No edema Gastrointestinal: non-tender, soft Musculoskeletal: nl extremities to inspection Neurological: nl mental status, nl speech Skin: No rash or lesions Results Result Diagram: 02/28/17 1400 02/28/17 1400 Results 24 hrs Laboratory Tests Test 02/28/17 14:00 03/01/17 06:00 White Blood Count 10.1 # Red Blood Count 4.36 #L Hemoglobin 10.0 L Hematocrit 32.8 L Mean Corpuscular Volume 75.2 L Mean Corpuscular Hemoglobin 22.9 L Mean Corpuscular Hemoglobin Concent 30.5 L Red Cell Distribution Width 18.4 #H Platelet Count 395 # Mean Platelet Volume 9.8 Neutrophils % 76.5 Lymphocytes % 9.5 L Monocytes % 12.3 H Eosinophils % 0.4 Basophils % 0.6 Nucleated Red Blood Cells % 0.0 Neutrophils # 7.8 H Lymphocytes # 1.0 Monocytes # 1.3 H Eosinophils # 0.0 Basophils # 0.1 Nucleated Red Blood Cells # 0.0 Sodium Level 141 Potassium Level 3.7 Chloride Level 101 Carbon Dioxide Level 28 Anion Gap 16 Blood Urea Nitrogen 35 H Creatinine 1.86 H Glucose Level 104 Calcium Level 9.1 Total Bilirubin 0.7 Direct Bilirubin 0.00 Indirect Bilirubin 0.7 Aspartate Amino Transf (AST/SGOT) 33 Alanine Aminotransferase (ALT/SGPT) 48 Alkaline Phosphatase 113 Troponin I 0.071 B-Type Natriuretic Peptide 99614 H Total Protein 7.2 Albumin 3.6 Globulin 3.60 H Albumin/Globulin Ratio 1.00 Urine Color YELLOW Urine Clarity CLEAR Urine pH 6.0 Urine Specific [place] 1.010 Urine Ketones NEGATIVE Urine Nitrite NEGATIVE Urine Bilirubin NEGATIVE Urine Urobilinogen NEGATIVE Urine Leukocyte Esterase NEGATIVE Urine Hemoglobin NEGATIVE Urine Random Creatinine 60.22 Urine Random Sodium 90 Urine Glucose NEGATIVE Urine Total Protein 18.0 H Medications Medications Current Medications Amiodarone HCl (Cordarone) 100 mg DAILY PO ; Start 03/01/17 at 09:00 Aspirin (Aspirin) 81 mg DAILY PO ; Start 03/01/17 at 09:00 Atorvastatin Calcium (Lipitor) 80 mg QHS PO Last administered on 02/28/17 21: 32; Admin Dose 80 MG; Start 02/28/17 at 21:00 Carvedilol (Coreg) 25 mg BID PO Last administered on 02/28/17 21:32; Admin Dose 25 MG; Start 02/28/17 at 21:00 Clonazepam (Klonopin) 0.5 mg Q8H PO Last administered on 03/01/17 00:47; Admin Dose 0.5 MG; Start 02/28/17 at 17:00 Clopidogrel Bisulfate (plaVIX) 75 mg DAILY PO ; Start 03/01/17 at 09:00 Docusate Sodium (Colace) 100 mg BID PO Last administered on 02/28/17 21:31; Admin Dose 100 MG; Start 02/28/17 at 21:00 EZETIMIBE (Zetia) 10 mg DAILY PO ; Start 03/01/17 at 09:00 Hydralazine HCl (Apresoline) 100 mg Q8 PO Last administered on 03/01/17 05:58 ; Admin Dose 100 MG; Start 02/28/17 at 22:00 Isosorbide Dinitrate (Isordil) 20 mg TID PO Last administered on 02/28/17 21: 31; Admin Dose 20 MG; Start 02/28/17 at 21:00 Paroxetine HCl (Paxil) 10 mg DAILY PO ; Start 03/01/17 at 09:00 Sertraline HCl (Zoloft) 50 mg DAILY PO ; Start 03/01/17 at 09:00 Zolpidem Tartrate (Ambien) 10 mg QHS PRN PO INSOMNIA Last administered on 02/28 22:15; Admin Dose 10 MG; Start 02/28/17 at 17:00 EMILY TREVIÑO Mar 01, 2017 08:58
[2017-03-01] MEDS: DOCUSATE SODIUM 100 MG CAP PO SCH ×2 (09:00→21:32)
[2017-03-01] MEDS: PAROXETINE 10 MG TAB PO SCH (09:00)
[2017-03-01 09:16] LABS: BASOPHIL # 0.1 10^3/ul (0.0-0.1); BASOPHILS % 0.6 % (0.0-2.0); EOSINOPHILS # 0.1 10^3/ul (0.0-0.5); EOSINOPHILS % 0.7 % (0.0-7.0); HEMATOCRIT 34.9 % (42.0-52.0); HEMOGLOBIN 10.6 g/dl (14.0-18.0); LYMPHOCYTES % 9.8 % (15.0-51.0); MEAN CORPUSCULAR HEMOGLOBIN 22.7 pg (29.0-33.0); MEAN CORPUSCULAR HGB CONC 30.4 g/dl (32.0-37.0); MEAN CORPUSCULAR VOLUME 74.9 fl (82.0-101.0); MEAN PLATELET VOLUME 10.6 fl (7.4-10.4); MONOCYTE # 1.3 10^3/ul (0.3-0.9); MONOCYTES % 13.5 % (0.0-11.0); NEUTROPHIL # 7.4 10^3/ul (1.6-7.5); NEUTROPHILS % 74.7 % (39.0-77.0); PLATELET COUNT 406 10^3/UL (140-415); RED BLOOD COUNT 4.66 10^6/ul (4.70-6.10); WHITE BLOOD COUNT 9.9 10^3/ul (4.8-10.8)
[2017-03-01] MEDS: ASPIRIN 81 MG TAB PO SCH (09:43)
[2017-03-01] MEDS: ISOSORBIDE DINITRATE 20 MG TAB PO SCH ×3 (09:44→21:33)
[2017-03-01] MEDS: EZETIMIBE 10 MG TAB PO SCH (09:44)
[2017-03-01] MEDS: SERTRALINE 50 MG TAB PO SCH (09:45)
[2017-03-01] MEDS: AMIODARONE 200 MG TAB PO SCH (09:46)
[2017-03-01 09:53] LABS: IRON 24 ug/dl (35-150)
[2017-03-01 09:58] LABS: ALBUMIN 3.5 g/dl (3.3-4.9); ALBUMIN/GLOBULIN RATIO 0.94; BILIRUBIN,INDIRECT 1.1 mg/dl (0-1.1); BILIRUBIN,TOTAL 1.1 mg/dl (0.2-1.3); CALCIUM 9.3 mg/dl (8.4-10.2); CREATININE 1.88 mg/dl (0.61-1.24); TOTAL PROTEIN 7.2 g/dl (6.1-8.1)
[2017-03-01 10:03] LABS: TOTAL IRON BINDING CAPACITY 414 ug/dl (241-421)
--- NOTE | 2017-03-01 12:01 | PN ---
DATE: 03/01/2017 SUBJECTIVE: The patient is stable. No events overnight. No fevers, chills, nausea, vomiting. OBJECTIVE: VITAL SIGNS: Blood pressure is 129/62, respirations 16, pulse 72, temperature 98.0. I's AND O'S: The patient had 300 in with 2 liters out. HEENT: Head is normocephalic. NECK: Supple. HEART: Regular rate. LUNGS: Show diminished breath sounds at base. ABDOMEN: Soft, nontender to palpation without rebound or guarding. EXTREMITIES: Negative for clubbing, cyanosis, no edema. DERMATOLOGIC: No rashes. MUSCULOSKELETAL: No joint effusions. NEUROLOGIC: No change in exam. MEDICATIONS: The patient's medications have been reviewed. LABORATORY DATA: From 03/01/2017 is currently pending. ASSESSMENT AND PLAN: 1. Nonoliguric acute kidney injury on top of chronic kidney disease with previous baseline creatini ne of 1.5 to 2.0 mg/dL. Etiology of acute kidney injury is likely secondary to hemodynamics. Renal function appears to be currently at baseline. The patient's urinalysis was reviewed, no active sed iment. At this point, continue current treatment plan. Continue diuretic regimen, follow and monit or renal function closely. 2. Acute systolic, diastolic heart failure. The patient is clinically improving. Continue current diuretic regimen. Follow up with Cardiology. 3. History of renal artery stenosis, status post stent placement. Continue to monitor. 4. Hypertension. Continue current blood pressure regimen. 5. Anemia. Continue to monitor hemoglobin and hematocrit levels. 6. Mineral bone disorder. Monitor calcium and phosphorus levels. 7. Coronary artery disease, status post percutaneous coronary intervention. Continue medical manag ement. 8. Ischemic cardiomyopathy. Continue current treatment plan. 9. Arrhythmia. Status post implantable cardioverter-defibrillator placement. 10. Lung mass with underlying progression. Etiology is unclear. Very concerning for possible prim chavez neoplasm. The patient's family has deferred biopsy in the past. We will continue to monitor. Defer to primar y team. Dictated By: MARILYN HUFF DO NR/NTS Conf#: [id number] DID#: [id number] CC: ARIANNA LIM MD;*EndCC*
[2017-03-01] MEDS ORDERED: POTASSIUM CHLORIDE (SR) 20 MEQ TAB PO STA (12:04)
[2017-03-01 12:14] LABS: FERRITIN 41.3 ng/ml (11.1-264.0)
--- NOTE | 2017-03-01 12:15 | PN ---
Date/Time of Note Date/Time of Note DATE: 03/01/17 TIME: 12:13 Assessment/Plan VTE Prophylaxis VTE Prophylaxis Intervention: LMWH Lines/Catheters IV [facility] Urinary Cath still in place: No Assessment/Plan Chief Complaint/Hosp Course 66 yo male with h/o chronic systolic CHF, expanding lung mass concerning for malignancy who presents with acute on chronic decompensated CHF and acute hypoxic respiratory failure Acute systolic CHF exacerbation: - Scale back diuretics per [place] - Continue BB, ANNE-I CKD III, renal artery stenosis s/p stents: - Stable Lungs mass: - Patient denies interest in workup. Enlarging mass surely contributing somewhat to his dyspnea CAD: - Continue aspirin, plavix and statin h/o incarcerated hernia repair Iron deficiency anemia: - Start iron supplementation Discharge when euvolemic Problems: Subjective 24 Hr Interval Summary Free Text/Dictation Much improved from yesterday. No longer requiring O2 Responded well to lasix Less SOB than yesterday he says Exam/Review of Systems Vital Signs Vitals Vital Signs Date Time Temp Pulse Resp B/P Pulse Ox O2 Delivery O2 Flow Rate FiO2 03/01/17: 98.1 70 16 85/37 96 02/28/17 21:00 3.0 02/28/17 18:20 Nasal Cannula Intake and Output 02/28/17 02/28/17 03/01/17 15:00 23:00 07:00 Intake Total 300 ml Output Total 300 ml 885 ml 900 ml Balance -300 ml -885 ml -600 ml Exam Constitutional: alert, oriented, well developed Psych: nl mood/affect, no complaints Head: atraumatic, normocephalic Eyes: EOMI, PERRL, nl conjunctiva, nl lids, nl sclera ENMT: nl external ears & nose, nl lips & teeth, nl nasal mucosa & septum Neck: non-tender, supple Respiratory: clear to auscultation, normal air movement Cardiovascular: nl pulses, regular rate and rhythm Gastrointestinal: nl liver, spleen, non-tender, soft Musculoskeletal: nl extremities to inspection, nl gait and stance Extremities: normal pulses Neurological: INSURANCE ADJUSTOR II-XII intact, nl mental status, nl speech, nl strength Skin: nl turgor, No rash or lesions Lymph: nl lymph nodes Results Result Diagram: 03/01/1772503/01/17725 Results 24 hrs Laboratory Tests Test 02/28/17 14:00 03/01/17 06:00 03/01/17 07:26 White Blood Count 10.1 # 9.9 Red Blood Count 4.36 #L 4.66 L Hemoglobin 10.0 L 10.6 L Hematocrit 32.8 L 34.9 L Mean Corpuscular Volume 75.2 L 74.9 L Mean Corpuscular Hemoglobin 22.9 L 22.7 L Mean Corpuscular Hemoglobin Concent 30.5 L 30.4 L Red Cell Distribution Width 18.4 #H 19.0 H Platelet Count 395 # 406 Mean Platelet Volume 9.8 10.6 H Neutrophils % 76.5 74.7 Lymphocytes % 9.5 L 9.8 L Monocytes % 12.3 H 13.5 H Eosinophils % 0.4 0.7 Basophils % 0.6 0.6 Nucleated Red Blood Cells % 0.0 0.0 Neutrophils # 7.8 H 7.4 Lymphocytes # 1.0 1.0 Monocytes # 1.3 H 1.3 H Eosinophils # 0.0 0.1 Basophils # 0.1 0.1 Nucleated Red Blood Cells # 0.0 0.0 Sodium Level 141 142 Potassium Level 3.7 3.0 L Chloride Level 101 99 Carbon Dioxide Level 28 31 Anion Gap 16 15 Blood Urea Nitrogen 35 H 34 H Creatinine 1.86 H 1.88 H Glucose Level 104 94 Calcium Level 9.1 9.3 Total Bilirubin 0.7 1.1 Direct Bilirubin 0.00 0.00 Indirect Bilirubin 0.7 1.1 Aspartate Amino Transf (AST/SGOT) 33 34 Alanine Aminotransferase (ALT/SGPT) 48 45 Alkaline Phosphatase 113 105 Troponin I 0.071 B-Type Natriuretic Peptide 01376 H Total Protein 7.2 7.2 Albumin 3.6 3.5 Globulin 3.60 H 3.70 H Albumin/Globulin Ratio 1.00 0.94 Urine Color YELLOW Urine Clarity CLEAR Urine pH 6.0 Urine Specific [place] 1.010 Urine Ketones NEGATIVE Urine Nitrite NEGATIVE Urine Bilirubin NEGATIVE Urine Urobilinogen NEGATIVE Urine Leukocyte Esterase NEGATIVE Urine Hemoglobin NEGATIVE Urine Random Creatinine 60.22 Urine Random Sodium 90 Urine Glucose NEGATIVE Urine Total Protein 18.0 H Iron Level 24 L Total Iron Binding Capacity 414 Percent Iron Saturation 6 L Ferritin Pending Medications Medications Current Medications Amiodarone HCl (Cordarone) 100 mg DAILY PO Last administered on 03/01/17 09: 46; Admin Dose 100 MG; Start 03/01/17 at 09:00 Aspirin (Aspirin) 81 mg DAILY PO Last administered on 03/01/17 09:43; Admin Dose 81 MG; Start 03/01/17 at 09:00 Atorvastatin Calcium (Lipitor) 80 mg QHS PO Last administered on 02/28/17 21: 32; Admin Dose 80 MG; Start 02/28/17 at 21:00 Carvedilol (Coreg) 25 mg BID PO Last administered on 03/01/17 09:45; Admin Dose 25 MG; Start 02/28/17 at 21:00 Clonazepam (Klonopin) 0.5 mg Q8H PO Last administered on 03/01/17 09:46; Admin Dose 0.5 MG; Start 02/28/17 at 17:00 Clopidogrel Bisulfate (plaVIX) 75 mg DAILY PO ; Start 03/01/17 at 09:00 Docusate Sodium (Colace) 100 mg BID PO Last administered on 02/28/17 21:31; Admin Dose 100 MG; Start 02/28/17 at 21:00 EZETIMIBE (Zetia) 10 mg DAILY PO Last administered on 03/01/17 09:44; Admin Dose 10 MG; Start 03/01/17 at 09:00 Hydralazine HCl (Apresoline) 100 mg Q8 PO Last administered on 03/01/17 05:58 ; Admin Dose 100 MG; Start 02/28/17 at 22:00 Isosorbide Dinitrate (Isordil) 20 mg TID PO Last administered on 03/01/17 09: 44; Admin Dose 20 MG; Start 02/28/17 at 21:00 Paroxetine HCl (Paxil) 10 mg DAILY PO ; Start 03/01/17 at 09:00 Sertraline HCl (Zoloft) 50 mg DAILY PO Last administered on 03/01/17 09:45; Admin Dose 50 MG; Start 03/01/17 at 09:00 Zolpidem Tartrate 10 mg 10 mg QHS PRN PO INSOMNIA Last administered on 22:15; Admin Dose 10 MG; Start 02/28/17 at 17:00 Ferric Sodium Gluconate Complex/ Sodium Chloride (Ferrlecit/NS) 110 ml @ 100 mls/hr Q24H IVPB ; Start 03/01/17 at 12:30; Stop 03/03/17 at 13:35; Status UNV ARIANNA LIM MD Mar 01, 2017 12:15
[2017-03-01] MEDS: CLOPIDOGREL 75 MG TAB PO SCH (13:06)
[2017-03-01] MEDS: SOD FERRIC GLUC COMPLX 125 MG in SOD CHLORIDE 0.9% 100 ML IVPB SCH (15:24)
[2017-03-01] MEDS: FUROSEMIDE 20 MG TAB PO SCH (17:35)
[2017-03-01] MEDS: ATORVASTATIN 80 MG TAB PO SCH (21:33)
[2017-03-01] MEDS: ZOLPIDEM 5 MG TAB PO PRN (22:36)
[2017-03-02] VITALS (9 sets, daily range): BP systolic 103–133; BP diastolic 51–63; PULSE 70–82; RESP 16–18
[2017-03-02] MEDS: clonAZEPAM 0.5 MG TAB PO SCH ×2 (01:00→08:41)
[2017-03-02] MEDS: FUROSEMIDE 20 MG TAB PO SCH (06:25)
--- NOTE | 2017-03-02 06:59 | CONS ---
Date/Time of Note Date/Time of Note DATE: 03/02/17 TIME: 06:57 Assessment/Plan Assessment/Plan Chief Complaint/Hosp Course Acute on chronic systolic heart failure: Significant decompensation in clinic, better with diuresis. Slightly worse today. RUL pulmonary mass: definitely worrisome for malignancy. Has been known since 2014 and pt refused workup. Has been losing weight recently and the mass has enlarged. Still undecided about workup CAD s/p CABG s/p PCI 02/2016 ICM (EF 20%) Recurrent pulm edema ICD for secondary prevention PVD s/p bilateral renal artery stenting and CEA CKD (baseline Cr 1.5-2) HTN -lasix 40mg IV x 1 now -if ambulates without symptoms, ok for d/c later today with lasix 20mg PO BID at home and f/u with me next week -RUL mass workup as outpt if can be convinced -continue ASA, plavix -lipitor, zetia -coreg, hydralazine, isordil -amiodarone Problems: Consultation Date/Type/Reason Admit Date/Time Feb 28, 2017 at 15:35 Initial Consult Date 03/01/17 Referring Provider: ARIANNA LIM MD 24 HR Interval Summary Free Text/Dictation Overall feels well. Mild SOB yesterday. wants to go home today. Admits to dietary noncompliance over the holidays Exam/Review of Systems Vital Signs Vitals Vital Signs Date Time Temp Pulse Resp B/P Pulse Ox O2 Delivery O2 Flow Rate FiO2 03/02/17 06:03 98.8 79 18 133/63 97 03/01/17 20:00 2.0 02/28/17 18:20 Nasal Cannula Intake and Output 03/01/17 03/01/17 03/02/17 14:59 22:59 06:59 Intake Total 600 ml 150 ml Balance 600 ml 150 ml Exam Constitutional: alert, oriented Psych: nl mood/affect, no complaints Head: atraumatic, normocephalic Neck: jvd (8cm) Respiratory: crackles/rales (mild), No clear to auscultation Cardiovascular: regular rate and rhythm, systolic murmur (2/6 SAADIA), No edema Gastrointestinal: non-tender, soft Neurological: nl mental status, nl speech Results Result Diagram: 03/01/17 0726 03/01/17 0726 Results 24 hrs Laboratory Tests Test 03/01/17 07:26 White Blood Count 9.9 Red Blood Count 4.66 L Hemoglobin 10.6 L Hematocrit 34.9 L Mean Corpuscular Volume 74.9 L Mean Corpuscular Hemoglobin 22.7 L Mean Corpuscular Hemoglobin Concent 30.4 L Red Cell Distribution Width 19.0 H Platelet Count 406 Mean Platelet Volume 10.6 H Neutrophils % 74.7 Lymphocytes % 9.8 L Monocytes % 13.5 H Eosinophils % 0.7 Basophils % 0.6 Nucleated Red Blood Cells % 0.0 Neutrophils # 7.4 Lymphocytes # 1.0 Monocytes # 1.3 H Eosinophils # 0.1 Basophils # 0.1 Nucleated Red Blood Cells # 0.0 Sodium Level 142 Potassium Level 3.0 L Chloride Level 99 Carbon Dioxide Level 31 Anion Gap 15 Blood Urea Nitrogen 34 H Creatinine 1.88 H Glucose Level 94 Calcium Level 9.3 Iron Level 24 L Total Iron Binding Capacity 414 Percent Iron Saturation 6 L Ferritin 41.3 Total Bilirubin 1.1 Direct Bilirubin 0.00 Indirect Bilirubin 1.1 Aspartate Amino Transf (AST/SGOT) 34 Alanine Aminotransferase (ALT/SGPT) 45 Alkaline Phosphatase 105 Total Protein 7.2 Albumin 3.5 Globulin 3.70 H Albumin/Globulin Ratio 0.94 Medications Medications Current Medications Amiodarone HCl (Cordarone) 100 mg DAILY PO Last administered on 03/01/17 09: 46; Admin Dose 100 MG; Start 03/01/17 at 09:00 Aspirin (Aspirin) 81 mg DAILY PO Last administered on 03/01/17 09:43; Admin Dose 81 MG; Start 03/01/17 at 09:00 Atorvastatin Calcium (Lipitor) 80 mg QHS PO Last administered on 03/01/17 21: 33; Admin Dose 80 MG; Start 02/28/17 at 21:00 Carvedilol (Coreg) 25 mg BID PO Last administered on 03/01/17 21:33; Admin Dose 25 MG; Start 02/28/17 at 21:00 Clonazepam (Klonopin) 0.5 mg Q8H PO Last administered on 03/01/17 09:46; Admin Dose 0.5 MG; Start 02/28/17 at 17:00 Clopidogrel Bisulfate (plaVIX) 75 mg DAILY PO Last administered on 03/01/17 13:06; Admin Dose 75 MG; Start 03/01/17 at 09:00 Docusate Sodium (Colace) 100 mg BID PO Last administered on 03/01/17 21:32; Admin Dose 100 MG; Start 02/28/17 at 21:00 EZETIMIBE (Zetia) 10 mg DAILY PO Last administered on 03/01/17 09:44; Admin Dose 10 MG; Start 03/01/17 at 09:00 Hydralazine HCl (Apresoline) 100 mg Q8 PO Last administered on 03/02/17 06:26 ; Admin Dose 100 MG; Start 02/28/17 at 22:00 Isosorbide Dinitrate (Isordil) 20 mg TID PO Last administered on 03/01/17 21: 33; Admin Dose 20 MG; Start 02/28/17 at 21:00 Paroxetine HCl (Paxil) 10 mg DAILY PO ; Start 03/01/17 at 09:00 Sertraline HCl (Zoloft) 50 mg DAILY PO Last administered on 03/01/17 09:45; Admin Dose 50 MG; Start 03/01/17 at 09:00 Zolpidem Tartrate 10 mg 10 mg QHS PRN PO INSOMNIA Last administered on 22:36; Admin Dose 10 MG; Start 02/28/17 at 17:00 Ferric Sodium Gluconate Complex/ Sodium Chloride (Ferrlecit/NS) 110 ml @ 100 mls/hr Q24H IVPB Last administered on 03/01/17 15:24; Admin Dose 100 MLS/HR; Start 03/01/17 at 14:00; Stop 03/03/17 at 15:05 EMILY TREVIÑO Mar 02, 2017 06:59
[2017-03-02] MEDS ORDERED: FUROSEMIDE 40 MG INJ IV ONE (07:00)
[2017-03-02 08:21] LABS: BASOPHIL # 0.1 10^3/ul (0.0-0.1); BASOPHILS % 0.7 % (0.0-2.0); EOSINOPHILS # 0.1 10^3/ul (0.0-0.5); EOSINOPHILS % 1.2 % (0.0-7.0); HEMATOCRIT 33.7 % (42.0-52.0); HEMOGLOBIN 10.1 g/dl (14.0-18.0); LYMPHOCYTES % 11.2 % (15.0-51.0); MEAN CORPUSCULAR HEMOGLOBIN 22.7 pg (29.0-33.0); MEAN CORPUSCULAR VOLUME 75.9 fl (82.0-101.0); MEAN PLATELET VOLUME 10.2 fl (7.4-10.4); MONOCYTE # 1.4 10^3/ul (0.3-0.9); MONOCYTES % 14.9 % (0.0-11.0); NEUTROPHIL # 6.6 10^3/ul (1.6-7.5); NEUTROPHILS % 71.3 % (39.0-77.0); PLATELET COUNT 372 10^3/UL (140-415); RED BLOOD COUNT 4.44 10^6/ul (4.70-6.10); RED CELL DISTRIBUTION WIDTH 18.5 % (11.5-14.5); WHITE BLOOD COUNT 9.2 10^3/ul (4.8-10.8)
[2017-03-02] MEDS: ASPIRIN 81 MG TAB PO SCH (08:42)
[2017-03-02] MEDS: CLOPIDOGREL 75 MG TAB PO SCH (08:42)
[2017-03-02 08:43] LABS: CALCIUM 9.3 mg/dl (8.4-10.2); CREATININE 1.96 mg/dl (0.61-1.24); PHOSPHORUS 4.4 mg/dl (2.5-4.9); POTASSIUM 3.7 mmol/L (3.5-5.1)
[2017-03-02] MEDS: EZETIMIBE 10 MG TAB PO SCH (08:45)
[2017-03-02] MEDS: ISOSORBIDE DINITRATE 20 MG TAB PO SCH ×2 (08:46→13:00)
[2017-03-02] MEDS: AMIODARONE 200 MG TAB PO SCH (08:46)
[2017-03-02] MEDS: DOCUSATE SODIUM 100 MG CAP PO SCH (08:47)
[2017-03-02] MEDS: SERTRALINE 50 MG TAB PO SCH (08:47)
[2017-03-02] MEDS: PAROXETINE 10 MG TAB PO SCH (08:47)
--- NOTE | 2017-03-02 11:24 | PN ---
DATE: 03/02/2017 SUBJECTIVE: The patient is stable. No events overnight. No fevers, chills, nausea, vomiting. OBJECTIVE: VITAL SIGNS: Blood pressure is 128/56, respirations 16, pulse 66, temperature 97.8. HEENT: Head is normocephalic. NECK: Supple. HEART: Regular rate. LUNGS: Show diminished breath sounds at the base. ABDOMEN: Soft, nontender to palpation. No rebound or guarding. EXTREMITIES: Negative for clubbing, cyanosis, no edema. DERMATOLOGIC: No rashes. MUSCULOSKELETAL: No joint effusions. NEUROLOGIC: No change in exam. MEDICATIONS: The patient's medications have been reviewed. LABORATORY DATA: From 03/02/2017 is currently pending. ASSESSMENT AND PLAN: 1. Nonoliguric acute kidney injury on top of chronic kidney disease with previous baseline creatini ne of 1.5 to 2 mg/dL. Etiology of acute kidney injury is secondary to hemodynamics. Renal function is currently at baseline. Continue current treatment plan, supportive care, renally dose all medic smiley. 2. Acute systolic heart failure. The patient is clinically improved. Continue current diuretic re gimen. 3. History of renal artery stenosis status post stent placement. Continue to monitor. 4. Hypertension. Continue current blood pressure regimen. 5. Anemia with iron deficiency. Continue IV Ferrlecit, monitor hemoglobin and hematocrit levels. 6. Mineral bone disorder, monitor calcium and phosphorus levels. 7. Coronary artery disease status post PCI. Continue current treatment plan. 8. Ischemic cardiomyopathy. Continue medical management. 9. Arrhythmia. The patient is status post ICD placement. 10. Lung mass with progression of disease. Underlying cause is unclear. The patient refuses biops y. Continue to monitor. Dictated By: MARILYN SANTOS/LUIS Conf#: [id number] DID#: [id number]
[2017-03-02] MEDS ORDERED: FER325 PO (13:10)
--- NOTE | 2017-03-02 13:10 | PDOCDIS ---
Discharge Instructions DIAGNOSIS Discharge Diagnosis Acute systolic CHF exacerbation CONDITION Patient Condition: Fair HOME CARE INSTRUCTIONS: Diet Instructions: Reduced SodiumSpecial Diet: low fat low chol 2g Na FOLLOW UP/APPOINTMENTS Follow-up Plan Make an appoinment to see your commercial energy rater in the next 1-2 weeks Take your lasix twice a day Start taking iron supplementation as your iron level is low. Talk to your doctor about seeing a cable repairer for this problem Return to the hospital if you have any concerning symptoms ARIANNA LIM MD Mar 02, 2017 13:10
--- NOTE | 2017-03-02 13:20 | DS ---
Date/Time of Note Date/Time of Note DATE: 03/02/17 TIME: 13:18 Discharge Summary Admission/Discharge Info Admit Date/Time Feb 28, 2017 at 15:35 Discharge Date/Time Discharge Diagnosis Acute systolic CHF exacerbation Hx of Present Illness 66 yo male with h/o chronic systolic CHF, lung mass of unclear etiology who presents with SOB x a few days Known CHF, has had numerous admissions for exacerbations. Also has an upper lobe lung mass concerning for malignancy for which he has refused workup. Takes lasix 20 mg BID, adherent. Despite this has developed worsening SOB over past few days. Went to [facility] for appointment, referred to ED Here XR shows enlarging mass and CHF exacerbation Given IV lasix, O2 Feels a bit better Spoke about his lung mass. Again denies any interest in knowing what it is. Worried it may be cancer and states he woudl not want treatment regardless Hospital Course The patient was found to be midly hypoxic but stable. XR showed enlarging lung mass and acute systolic CHF. He was given IV lasix with good response and became euvolemic after two days. He was counseled about his lung mass, and as previously, he refused workup as he says he prefers not to know what it is, even if it is malignancy. He was also found to have an iron deficiency anemia. He was given IV iron while inpatient and PO iron as an outpatient. He was encouraged to arrange for colonoscopy/EGD as an outpatient. He will follow up with Dr Zavala in clinic. He was discharge on 20 mg PO lasix BID. Home Meds Active Scripts Ferrous Sulfate* (Ferrous Sulfate*) 325 Mg Tabec, 325 MG PO DAILY for 60 Days, # 60 TAB Prov:ARIANNA LIM MD 03/02/17 Docusate Sodium (Dok) 100 Mg Capsule, 100 MG PO BID for 7 Days, CAP Prov:SANJUANITA SPAULDING. 10/13/16 Carvedilol* (Carvedilol*) 25 Mg Tablet, 25 MG PO BID for 30 Days, TAB 2 Refills Prov:SANJUANITA SPAULDING. 10/13/16 Paroxetine Hcl* (Paroxetine*) 10 Mg Tablet, 10 MG PO DAILY for 30 Days, TAB Prov:TRESSA RUIZ MD 09/06/16 Isosorbide Dinitrate* (Isosorbide Dinitrate*) 20 Mg Tablet, 20 MG PO TID for 30 Days, TAB Prov:TRESSA RUIZ MD 09/06/16 Atorvastatin* (Atorvastatin*) 80 Mg Tablet, 80 MG PO QHS for 30 Days, TAB Prov:TRESSA RUIZ MD 09/06/16 Aspirin* (Aspirin* Chew) 81 Mg Tab.chew, 81 MG PO DAILY, #30 TAB.CHEW Prov:GIA WILDER MD 03/07/16 Reported Medications Furosemide* (Furosemide*) 20 Mg Tablet, 20 MG PO BID, #30 TAB 02/28/17 Hydralazine Hcl* (Hydralazine Hcl*) 100 Mg Tablet, 100 MG PO Q8, #90 TAB 02/28/17 Clonazepam* (Clonazepam*) 0.5 Mg Tablet, 0.5 MG PO Q8H for ANXIETY, TAB 10/04/16 Sertraline Hcl* (Sertraline Hcl*) 50 Mg Tablet, 50 MG PO DAILY, #30 TAB 10/04/16 Amiodarone Hcl* (Amiodarone Hcl*) 100 Mg Tablet, 100 MG PO DAILY, #30 TAB 08/30/16 Clopidogrel Bisulfate (Clopidogrel) 75 Mg Tablet, 75 MG PO DAILY, #30 TAB 08/16/16 Ezetimibe* (Zetia*) 10 Mg Tablet, 10 MG PO DAILY, TAB 05/21/16 Zolpidem Tartrate* (Zolpidem Tartrate*) 10 Mg Tablet, 10 MG PO QHS Y for INSOMNIA, #30 TAB 01/25/16 Discontinued Scripts Hydralazine Hcl* (Apresoline*) 50 Mg Tab, 100 MG PO TID for 30 Days, TAB Prov:TRESSA RUIZ MD 09/06/16 Follow-up Plan Make an appoinment to see your campus wellness coordinator in the next 1-2 weeks Take your lasix twice a day Start taking iron supplementation as your iron level is low. Talk to your doctor about seeing a collections clerk for this problem Return to the hospital if you have any concerning symptoms Primary Care Provider Manuel Martinez Time spent on discharge: > 30 minutes Pending Labs Laboratory Tests Test 03/02/17 07:11 White Blood Count 9.210^3/ul (4.8-10.8) Red Blood Count 4.4410^6/ul (4.70-6.10) Hemoglobin 10.1g/dl (14.0-18.0) Hematocrit 33.7% (42.0-52.0) Mean Corpuscular Volume 75.9fl (82.0-101.0) Mean Corpuscular Hemoglobin 22.7pg (29.0-33.0) Mean Corpuscular Hemoglobin Concent 30.0g/dl (32.0-37.0) Red Cell Distribution Width 18.5% (11.5-14.5) Platelet Count 58624^3/UL (140-415) Mean Platelet Volume 10.2fl (7.4-10.4) Neutrophils % 71.3% (39.0-77.0) Lymphocytes % 11.2% (15.0-51.0) Monocytes % 14.9% (0.0-11.0) Eosinophils % 1.2% (0.0-7.0) Basophils % 0.7% (0.0-2.0) Nucleated Red Blood Cells % 0.0/100WBC (0.0-0.0) Neutrophils # 6.610^3/ul (1.6-7.5) Lymphocytes # 1.010^3/ul (0.8-2.9) Monocytes # 1.410^3/ul (0.3-0.9) Eosinophils # 0.110^3/ul (0.0-0.5) Basophils # 0.110^3/ul (0.0-0.1) Nucleated Red Blood Cells # 0.010^3/ul (0.0-0.0) Sodium Level 141mmol/L (135-144) Potassium Level 3.7mmol/L (3.5-5.1) Chloride Level 101mmol/L (97-110) Carbon Dioxide Level 31mmol/L (21-31) Anion Gap 13 (8-16) Blood Urea Nitrogen 40mg/dl (7-20) Creatinine 1.96mg/dl (0.61-1.24) Glucose Level 83mg/dl (70-220) Calcium Level 9.3mg/dl (8.4-10.2) Phosphorus Level 4.4mg/dl (2.5-4.9) Magnesium Level 2.0mg/dl (1.7-2.5) ARIANNA LIM MD Mar 02, 2017 13:20
[2017-03-02] MEDS: SOD FERRIC GLUC COMPLX 125 MG in SOD CHLORIDE 0.9% 100 ML IVPB SCH (13:27)
[2017-03-02 14:47] LABS: MICROALBUMIN 1.6 mg/dL
[2017-03-02] MEDS ORDERED: FUROSEMIDE 20 MG TAB PO SCH (18:00)
== END 2017-03-02 16:25 | disposition home or self-care (01) | DRG 291 ==
LOC: E/R 12:59 → TEL 15:35
PROVIDERS: ADMIT Internal Medicine; ATTEND Internal Medicine
DX: I13.0 Hypertensive heart and chronic kidney disease with heart failure and stage 1 through stage 4 chronic kidney disease, or unspecified chronic kidney disease (principal); I50.23 Acute on chronic systolic (congestive) heart failure; J96.01 Acute respiratory failure with hypoxia; N17.9 Acute kidney failure, unspecified; N18.4 Chronic kidney disease, stage 4 (severe); Z95.1 Presence of aortocoronary bypass graft; I73.9 Peripheral vascular disease, unspecified; I25.10 Atherosclerotic heart disease of native coronary artery without angina pectoris; I25.5 Ischemic cardiomyopathy; R91.8 Other nonspecific abnormal finding of lung field; Z95.5 Presence of coronary angioplasty implant and graft; Z79.02 Long term (current) use of antithrombotics/antiplatelets; Z79.82 Long term (current) use of aspirin; Z91.11 Patient's noncompliance with dietary regimen
CPT/HCPCS: 36415; 71010; 80048; 80053; 81003; 82043; 82728; 83540; 83735; 83880; 84100; 84155; 84300; 84484; 85025; 93005; 96374; 96376; J1940; J2916; J7030

== ENCOUNTER 2017-04-26 18:59 | Inpatient (IN) | END 2017-05-11 18:15 | disposition home health service (06) | DRG 180 ==